=== PATIENT | female | born 1985 | race Caucasian/White ===

== ENCOUNTER 2022-03-08 12:09 | Outpatient (CLI) | payer BC, OTHER, SELFPAY ==
--- OUTSIDE RECORDS SUMMARY | 2022-03-08 12:42 | XMS_ITS | Encounter Summary ---
:1985 Author Organization [facility] Address [address] [place] [address] Care Team Providers Name Role Phone Unavailable Primary Care Provider Unavailable Encounter Details Date Type Department Care Team Description 12/31/2016 Orders Only [facility] Erin Briceño MD [facility] [address] test (Primary Dx) [place], [place] [address] [address] [address] [place] [address] Social History Tobacco Use Types Packs/Day Years Used Date Never Assessed Sex Assigned at Date Recorded Female 08/03/2021 2:35 PM BACK [employer]ENDER [employer] documented as of this encounter Plan of Treatment Not on filedocumented as of this encounter Visit Diagnoses Diagnosis Positive test - Primary examination or test, positive result documented in this encounter
--- OUTSIDE RECORDS SUMMARY | 2022-03-08 12:42 | XMS_ITS | Clinical Summary ---
:1985 Author Organization [facility] Address [address] [place] [address] Care Team Providers Name Role Phone Leela Ruano MD Primary Care Provider Allergies Active Allergy Reactions Severity Noted Date Comments Penicillins Swelling 08/16/2017 Medications Medication Sig Dispensed Refills Start Date End Date Status Vit-Fe Take 1 tablet by 0 Active Fumarate-FA mouth daily ( MULTIVITAMIN PLUS IRON) 27-0.8 MG TABS per tablet calcium carbonate Take 1 chew tab by 0 Active (TUMS) 500 MG mouth daily chewable tablet acetaminophen Take 2 tablets (650 100 tablet 0 08/20/2017 Active (TYLENOL) 325 MG mg) by mouth every tabletIndications: 6 hours as needed delivery for other delivered (multimodal surgical pain management along with NSAIDS and opioid medication as indicated based on pain control and physical function.) ibuprofen Take 1 tablet (600 120 tablet 0 08/20/2017 Active (ADVIL/MOTRIN) 600 mg) by mouth every MG 6 hours as needed tabletIndications: (carmping) delivery delivered oxyCODONE IR Take 1 tablet (5 10 tablet 0 08/20/2017 Active (ROXICODONE) 5 MG mg) by mouth every tabletIndications: 4 hours as needed delivery (pain control or delivered improvement in physical function. Hold dose for analgesic side effects.) senna-docusate Take 1 tablet by 100 tablet 0 08/20/2017 Active (SENOKOT-S;PERICOLAC mouth 2 times daily E) 8.6-50 MG per as needed for tabletIndications: constipation delivery delivered Active Problems Problem Noted Date delivery delivered 08/17/2017 Indication for care in labor or delivery 08/16/2017 Social History Tobacco Use Types Packs/Day Years Used Date Former Smoker Smokeless Tobacco: Never Used Alcohol Use Standard Drinks/Week Comments No 0 (1 standard drink = 0.6 oz pure alcoho l) Sex Assigned at Date Recorded Female 08/03/2021 2:35 PM Last Filed Vital Signs Vital Sign Reading Time Taken Comments Blood Pressure 137/90 08/20/2017 8:34 AM Pulse - - Temperature 36.5 ??C (97.7 ??F) 08/20/2017 8:34 AM Respiratory Rate 18 08/20/2017 8:34 AM Oxygen Saturation 96% 08/17/2017 8:20 AM Inhaled Oxygen Concentration - - Weight 83.5 kg (184 lb) 08/16/2017 11:00 AM Height 162.6 cm (5' 4) 08/16/2017 11:00 AM Body Mass Index 31.58 08/16/2017 11:00 AM Plan of Treatment Health Maintenance Due Date Last Done Comments ADVANCE CARE PLANNING 1985 ANNUAL REVIEW OF HM ORDERS 1985 HEPATITIS B IMMUNIZATION (2 03/27/2000 02/28/2000 of 3 - 3-dose primary series) HEPATITIS C SCREENING 2003 PAP 2006 PREVENTIVE CARE VISIT 10/02/2019 10/01/2018 COVID-19 Vaccine (3 - Booster 05/29/2021 12/27/2020, for Pfizer series) 12/06/2020 PHQ-2 (once per calendar 07/29/2021 year) INFLUENZA VACCINE (#1) 2022 05/29/2017, 08/23/2009 DTAP/TDAP/TD IMMUNIZATION (2 05/29/2027 05/29/2017 - Td or Tdap) HIV SCREENING Completed 01/25/2017 IPV IMMUNIZATION Aged Out No longer eligi ble based on patient's age to complete this to pic MENINGITIS IMMUNIZATION Aged Out No longe r eligible based on patient's age to complete this to pic Pneumococcal Vaccine: Aged Out No longer eligible based Pediatrics (0 to 5 Years) and on patient's age to At-Risk Patients (6 to 64 comple te this topic Years) Care Teams Quality Assurance Supervisor Relationship Specialty Start Date End Date Leela Ruano MD PCP - General Family Practice 08/06/17 [facility] [address] [place], [place] [address]
--- OUTSIDE RECORDS SUMMARY | 2022-03-08 12:42 | XMS_ITS | Encounter Summary ---
:1985 Author Organization [facility] [employer] Address [address] [place] [address] Care Team Providers Name Role Phone Leela Ruano MD Primary Care Provider Reason for Visit Reason Comments LAB RESULTS Encounter Details Date Type Department Care Team Description 12/19/2021 Telephone [facility] [address] Emma Branham MD LAB RESULTS Endocrinology [address] [place] [address] [place], [place] [id number] [phone] Social History Tobacco Use Types Packs/Day Years Used Date Smoking Tobacco: Former Cigarettes 0.5 16 Quit : 12/12/2016 Comments: Smoking History Packs/day: Alcohol Use Standard Drinks/Week Comments Yes 0 (1 standard drink = 0.6 oz pure Alcoho lic Drinks/day: Amount:1-2 alcohol) drinks; Freq:2-3/wee k ; Alcohol Habits Answer Date Recorded How often do you have a drink Not asked containing alcohol? How many drinks containing alcohol Not asked do you have on a typical day when you are drinking? How often do you have six or more Not asked drinks on one occasion? Comment: Alcoholic Drinks/day: Amount:1-2 03/17/ 016 drinks; Freq:2-3/week ; Sex Assigned at Date Recorded Not on file documented as of this encounter Nursing Notes Craon Carty, RN - 12/19/2021 10:21 AM CDT Called out to patient, patient reached, Spoke with patient and relayed information below. Pt verbalized understanding. No further questions. Emma Branham MD - 12/19/2021 9:56 AM CDT Please let the patient know I reviewed her latest thyroid lab and it is normal at 0.33 which is normal. At this point, we can assume the TSH was a little low early in the due to hormones, but now it's back to normal, so we can stop monitoring the thyroid lab during . Emma Branham MD [employer] [facility] documented in this encounter Plan of Treatment Not on filedocumented as of this encounter Visit Diagnoses Not on filedocumented in this encounter Care Teams Senior Integration Architect Relationship Specialty Start Date End Date Leela Ruano MD PCP - General 10/31/10 [id number] [address] [place] [id number] documented as of this encounter
--- OUTSIDE RECORDS SUMMARY | 2022-03-08 12:42 | XMS_ITS | Encounter Summary ---
:1985 Author Organization [facility] Address [address] [place] [address] Care Team Providers Name Role Phone Leela Ruano MD Primary Care Provider Reason for Visit Reason Comments Induction Of Labor Auth/Cert Specialty Diagnoses / Procedures Referred By Contact Refer red To Contact clay hoister Diagnoses Rh Labor And Delivery Procedures LABOR AND DELIVERY [address] [place], [place] [address] Phone: Fax: Referral ID Status Reason Start Date Expiration Date Visits Requ ested Visits Authorized [id number] 1 1 Encounter Details Date Type Department Care Team Description 08/17/2017 Surgery [facility] Elayne Zacarias section Birthplace MD [facility] [address] OBSTETRICS & [place] [address] SPECIALISTS [phone] [id number] [facility] [address] [place], [place] [address] (Wo rk) Surgery Details Date/Time Status Location OR Service Patient Class Case Case Trauma Class Type Case? 08/17/17 12:30 Posted RH L+D LD 01 Obstetrics Inpatient AM Panel 1 Procedure LRB Anes Op Region Wound Class Commen ts section N/A Epidural Abdomen II-Clean Contaminat ed section Surgeon Surgeon Role Service Panel Lia Zacarias MD Primary Obstetrics 1 documented in this encounter Social History Tobacco Use Types Packs/Day Years Used Date Former Smoker Smokeless Tobacco: Never Used Alcohol Use Standard Drinks/Week Comments No 0 (1 standard drink = 0.6 oz pure alcoho l) Sex Assigned at Date Recorded Female 08/03/2021 2:35 PM [employer] documented as of this encounter Last Filed Vital Signs Vital Sign Reading Time Taken Comments Blood Pressure 120/80 08/17/2017 2:20 AM [employer] Pulse - - Temperature 37.2 ??C (99 ??F) 08/17/2017 1:34 AM [employer] Respiratory Rate 18 08/16/2017 11:45 PM [employer] Oxygen Saturation 94% 08/17/2017 2:30 AM [employer] Inhaled Oxygen Concentration - - Weight 83.5 kg (184 lb) 08/16/2017 11:00 AM [employer] Height 162.6 cm (5' 4) 08/16/2017 11:00 AM [employer] Body Mass Index 31.58 08/16/2017 11:00 AM [employer] documented in this encounter Discharge Summaries Lia Zacarias MD - 08/16/2017 10:52 AM CST Post-Operative Note and Discharge Summary Leodan Milligan Date of : 1985 Age: [age] year old Date of Admission: 08/16/2017 Date of Discharge: 08/20/2017 1:00 PM Admitting Physician: Lia Zacarias MD Discharge Physician: Lia Zacarias MD Discharging Service: Obstetrics and Gynecology Home clinic: [facility] Admission Diagnoses: Indication for care in labor or delivery section delivery delivered Discharge Diagnosis: Patient Active Problem List Diagnosis ??? Indication for care in labor or delivery ??? delivery delivered Discharge Disposition: Discharged to home Condition on Discharge: Discharge vitals: Blood pressure 137/90, temperature 97.7 ??F (36.5 ??C), temperature source Oral, resp. rate 18, height 1.626 m (5' 4), weight 83.5 kg (184 lb), SpO2 96 %, unknown if currently . Procedures / Labs / Imaging: Invasive procedures: Primary section Medications Prior to Admission: No prescriptions prior to admission. Discharge Medications: Discharge Medication List as of 08/20/2017 10:38 AM START taking these medications Details acetaminophen (TYLENOL) 325 MG tablet Take 2 tablets (650 mg) by mouth every 6 hours as needed for other (multimodal surgical pain management along with NSAIDS and opioid medication as indicated based on pain control and physical function.), Disp-100 tablet, R-0, Local Print ibuprofen (ADVIL/MOTRIN) 600 MG tablet Take 1 tablet (600 mg) by mouth every 6 hours as needed (carmping), Disp-120 tablet, R-0, E-Prescribe oxyCODONE IR (ROXICODONE) 5 MG tablet Take 1 tablet (5 mg) by mouth every 4 hours as needed (pain control or improvement in physical function. Hold dose for analgesic side effects.), Disp-10 tablet, R-0, Local Print senna-docusate (SENOKOT-S;PERICOLACE) 8.6-50 MG per tablet Take 1 tablet by mouth 2 times daily as needed for constipation, Disp-100 tablet, R-0, E-Prescribe CONTINUE these medications which have NOT CHANGED Details Vit-Fe Fumarate-FA ( MULTIVITAMIN PLUS IRON) 27-0.8 MG TABS per tablet Take 1 tablet by mouth daily, Historical calcium carbonate (TUMS) 500 MG chewable tablet Take 1 chew tab by mouth daily, Historical STOP taking these medications RaNITidine HCl (ZANTAC PO) Comments: Reason for Stopping: Brief History of Illness: Leodan Milligan is a 32 year old female who was admitted for induction of labor given suspected macrosomia and GDMA1. Hospital Course: Her labor progressed normally to complete dilation, at which point no further descent of the head was noted after >1 hour of pushing. Given the EFW 9# and high station, the decision was made to proceed with primary section. Patient underwent delivery on 08/17/17 withoutcomplication. Her postoperative course was uncomplicated, with the ability to ambulate, void and tolerate regular diet by postoperative day #1. She was able to pass flatus and had pain controlled with oral medications by postoperative day #2. She was discharged on postoperative day #3 meeting all milestones. Significant Results: Recent Labs Lab 08/18/17 0705 08/16/17 1145 WBC -- 8.7 HGB 10.5* 13.7 HCT -- 43.3 MCV -- 85 PLT -- 272 Discharge Instructions and Follow-Up: Discharge diet: Regular Discharge activity: No intercourse or vigorous exercise for 6 weeks Discharge follow-up: Follow up with primary OB provider in 6 weeks Lia Zacarias MD [employer] documented in this encounter Discharge Instructions Discharge InstructionsSoco HutchisonALVARO - 08/20/2017 10:38 AM CST Postop Instructions [phone] [facility]-[phone] Activity ?? Do not lift more than 10 pounds for 6 weeks after surgery. Ask family and friends for help when you need it. ?? No driving until you have stopped taking your pain medications (usually two weeks after surgery). ?? No heavy exercise or activity for 6 weeks. Don't do anything that will put a strain on your surgery site. ?? Don't strain when using the toilet. Your care team may prescribe a stool softener if you have problems with your bowel movements. To care for your incision: ?? Keep the incision clean and dry. ?? Do not soak your incision in water. No swimming or hot tubs until it has fully healed. You may soak in the bathtub if the water level is below your incision. ?? Do not use peroxide, gel, cream, lotion, or ointment on your incision. ?? Adjust your clothes to avoid pressure on your surgery site (check the elastic in your underwear for example). You may see a small amount of clear or pink drainage and this is normal. Check with your health care provider: ?? If the drainage increases or has an odor. ?? If the incision reddens, you have swelling, or develop a rash. ?? If you have increased pain and the medicine we prescribed doesn't help. ?? If you have a fever above 100.4 F (38 C) with or without chills when placing thermometer under your tongue. The area around your incision (surgery wound), will feel numb. This is normal. The numbness should go away in less than a year. Keep your hands clean: Always wash your hands before touching your incision (surgery wound). This helps reduce your risk ofinfection. If your hands aren't dirty, you may use an alcohol hand-rub to clean your hands. Keep your nails clean and short. Call your healthcare provider if you have any of these symptoms: ?? You soak a sanitary pad with blood within 1 hour, or you see blood clots larger than a golf ball. ?? Bleeding that lasts more than 6 weeks. ?? Vaginal discharge that smells bad. ?? Severe pain, cramping or tenderness in your lower belly area. ?? A need to urinate more frequently (use the toilet more often), more urgently (use the toilet veryquickly), or it wade when you urinate. ?? Nausea and vomiting. ?? Redness, swelling or pain around a vein in your leg. ?? Problems or a red or painful area on your breast. ?? Chest pain and cough or are gasping for air. ?? Problems with coping with sadness, anxiety or depression. If you have concerns about hurting yourself or the baby, call your provider immediately. ?? You have questions or concerns after you return home. [employer] MEMBER documented in this encounter Medications at Time of Discharge Medication Sig Dispensed Refills Start Date End Date acetaminophen (TYLENOL) Take 2 tablets (650 100 tablet 0 325 MG mg) by mouth every 6 tabletIndications: hours as needed for delivery other (multimodal delivered surgical pain management along with NSAIDS and opioid medication as indicated based on pain control and physical function.) calcium carbonate (TUMS) Take 1 chew tab by 0 500 MG chewable tablet mouth daily ibuprofen (ADVIL/MOTRIN) Take 1 tablet (600 mg) 120 tablet 0 08/20/2017 600 MG by mouth every 6 hours tabletIndications: as needed (carmping) delivery delivered oxyCODONE IR Take 1 tablet (5 mg) 10 tablet 0 08/20/2017 (ROXICODONE) 5 MG by mouth every 4 hours tabletIndications: as needed (pain delivery control or improvement delivered in physical function. Hold dose for analgesic side effects.) Vit-Fe Take 1 tablet by mouth 0 Fumarate-FA ( daily MULTIVITAMIN PLUS IRON) 27-0.8 MG TABS per tablet senna-docusate Take 1 tablet by mouth 100 tablet 0 8 (SENOKOT-S;PERICOLACE) 2 times daily as 8.6-50 MG per needed for tabletIndications: constipation delivery delivered documented as of this encounter Progress Notes Deonna Starr MD - 08/20/2017 7:25 AM CST Doing well vss afeb Abdomen soft and nt Incision dry and intact Fundus firm and nt Extremities nl with +1 edema POD 3 doing well Discharge home prec reviewed RTC 6 weeks [employer] Marcie Sun PA-C - 08/19/2017 8:48 AM CST # 2 Post op . 40 2/7 weeks. Gest Diabetic. LGA. Pt states doing well. Nursing. Pain well controlled. Afebrile VSS. Hgb 10.5. Fundus firm light flow. Incision dry and intact. Passing flatus. Voiding w/o problems. Ext: w trace edema no pain. Normal postop course. Plan routine postop care. Plan to discharge to home 08/20. A [employer]BER Associated attestation - Asuncion Barnes MD - 08/19/2017 11:09 AM [employer] Physician Attestation I agree with the information in this note. Memo Alex MD - 08/18/2017 8:47 AM CST Afebrile. Abdomen is soft nontender. Dressing removed, incision is clean and dry. Tolerating diet, good pain control. Afebrile for 24 hours. Imp normal post op course. Plan Discontinue IV antibiotics. A [employer] TE[employer] MEMBER Memo Rosado MD - 08/17/2017 8:26 AM CST Mild elevation of temperature to 101.2 after her surgery, now on clindamycin and gent. No complaintsre incision. Tolerating diet, good pain control. Imp Post op c section Plan Continue antibiotics for at least 24 hours, otherwise routine post operative care. A [employer] TE[employer] MEMBER Lia Zacarias MD - 08/17/2017 12:18 AM CST Arrived to evaluate patient given pushing >1 hour and recurrence of deep variable decelerations with pushing. Pitocin had been turned off, with contractions every 1-2 minutes. On arrival, FHT baseline 165 with moderate variability, and deep variables with every few pushes. Pushing initiated with patient and station noted to be 0 with no descent despite very strong maternal effort. FHT baseline elevated to 175-180 during pushing, with maternal temp 99.3. Early decelerations noted, no accelerations. EFW 8.5-9#, with diagnosis of GDM. Suspect CPD and the elevating risk of intraamniotic infection. Patient counseled regarding recommendation for primary section. Consent signed. Lia Zacarias MD [employer]BER Marnie Villar MD - 08/16/2017 12:33 PM CST Labor Progress Note: S: Pt is here for induction of labor. O: BP 132/86 Temp 98.9 ??F (37.2 ??C) (Axillary) Resp (P) 17 Ht 1.626 m (5' 4) Wt 83.5 kg (184lb) BMI 31.58 kg/m2 SVE: 3.5/80/-2 AROM with clear fluid. TOCO: Irritability FHR: 145 baseline +moderate baseline cat 1 A/P: 32 yo at 40+1/7 wks. 1. GDM. Continue to monitor in labor. 2. Elevated BP monior, labs pending. 3. GBS negative. Marnie Villar A [employer] TE[employer] MEMBER documented in this encounter H&P Notes Lia Zacarias MD - 08/17/2017 12:26 AM CST History and Physical Leodan Milligan Date of : 1985 Age: [age] year old Date of Admission: 08/16/2017 Primary care provider: Leela Ruano Assessment and Plan: 32yo at 40.2 with GDMA1 and arrest of descent, suspected CPD. --Proceed with primary section. --Ancef and azithromycin for perioperative prophylaxis Attestation: This patient has been seen and evaluated by me, Lia Zacarias MD. Chief Complaint: Labor History is obtained from the patient History of Present Illness: This patient is a 32 year old female who presented for induction of labor at 40.2 weeks gestation given GDMA1 and suspected large size, borderline BPs. Labor progressed very well until she reached complete dilation, when no further progress was made past 0 station despite good maternal effort. Past Medical History: Past Medical History: Diagnosis Date ??? Diabetes (H) gestational diabetes-diet controlled Past Surgical History: History reviewed. No pertinent surgical history. Social History: I have reviewed this patient's social history Family History: This patient has no significant family history Immunizations: Immunizations are up to date Allergies: Allergies Allergen Reactions ??? Penicillins Swelling Medications: Prescriptions Prior to Admission Medication Sig Dispense Refill Last Dose ??? Vit-Fe Fumarate-FA ( MULTIVITAMIN PLUS IRON) 27-0.8 MG TABS per tablet Take 1 tablet by mouth daily 08/15/2017 at Unknown time ??? RaNITidine HCl (ZANTAC PO) Take 150 mg by mouth 08/15/2017 at Unknown time ??? calcium carbonate (TUMS) 500 MG chewable tablet Take 1 chew tab by mouth daily Past Week at Unknown time Review of Systems: The 10 point Review of Systems is negative other than noted in the HPI Physical Exam: Vitals were reviewed Temp: (P) 99.3 ??F (37.4 ??C) Temp src: (P) Axillary BP: 130/74 Heart Rate: 18 Resp: 18 Gen--NAD CV--RRR Lungs--CTA Abd--Gravid, EFW 9# FHT--175, moderate LTV, no accels, no decels [place]---ctx every 1-3 min Data: All laboratory data reviewed Lia Zacarias MD A [employer] TE[employer] MEMBER Marnie Villar MD - 08/16/2017 12:33 PM CST No significant change in general health status based on examination of the patient, review of Nursing Admission Database and record. EFW: 8lb 8oz Marnie Villar [employer] TE[employer] MEMBER documented in this encounter Consult Notes Luther Dale LSW - 08/19/2017 11:52 AM CST D) SW responding to automatic referral, met with Leodan and Jovi who are and reside in [place]. Their baby Charleen is their first and is in the NICU for respiratory distress. They are prepared for her at home and are not on WIC. Leodan has 6 weeks off work and Jovi has one week off. Leodan's mother who lives in [place] will live with the couple for awhile to help out. Leodan has not completed her EPDS at this time and has no concerns for herself for baby blues/ depression. I)SW explained role and provided supportive listening. SW discussed baby blues/ depressionand gave information on this as well as Parent Resource Guide and NICU welcome card with SW contact information. A)Leodan is A&O, with good affect and eye contact. Jovi is at bedside and supportive. Both speak very attentively of their new daughter. SW did not observe parent/infant bonding at this time due to baby being in NICU. Extended family live nearby and are very supportive. P) SW will continue to follow family while Charleen is in the NICU. A [employer] TE[employer] MEMBER documented in this encounter Miscellaneous Notes Note - Jemma Samson, RN - 08/20/2017 1:16 PM CST CL[place] to see patient. Her baby was using SNS and a nipple shield in NICU. Today she was planning on transitioning to formula via SNS when donor milk is no longer available at home. LC encouraged patient to pump so we could create a feeding plan. She pumped 30 cc from primarily one side (the second side was not suctioning) and formula will no longer be indicated. Plan for home to continue use of the nipple shield and work on latching. May use SNS only if required and not full 30 cc volume. will provide a follow up phone call within a week. A [employer] TE[employer] MEMBER Plan of Care - Mary Jane Welsh RN - 08/20/2017 1:00 PM CST Problem: Patient Care Overview Goal: Plan of Care/Patient Progress Review Outcome: Adequate for Discharge Date Met: 08/20/17 Data: Vital signs within normal limits. checks within normal limits - see flow record. Patient eating and drinking normally. Patient able to empty bladder independently and is up ambulating.No apparent signs of infection. Incision healing well. Patient performing self cares and is able to care for . Action: Patient medicated during the shift for pain and cramping. See MAR. Patient reassessed within1 hour after each medication and pain was improved - patient stated she was comfortable. Patient education done about discharge instructions, take home medications, post depression, and follow up appointments Patient verbalized understanding of all discharge instructions and states she has no further questions/concerns at this time. Response: Positive attachment behaviors observed with . Support persons present. Plan: Anticipate discharge home with infant. A [employer] TE[employer] MEMBER Plan of Care - Bhavesh Moya RN - 08/20/2017 4:10 AM CST Problem: Patient Care Overview Goal: Plan of Care/Patient Progress Review Outcome: Improving Stable patient, up ad suzanne and is independent with cares. with SNS going well, pt is also pumping. Vitals and assessment are WNL, pain well managed and incision is intact and healing as expected. Spouse is present and supportive, bonding well with . [employer] TE[employer] MEMBER Plan of Care - Yane Holden RN - 08/19/2017 11:39 PM CST Problem: ( Delivery) (Adult,Obstetrics,Pediatric) Goal: Signs and Symptoms of Listed Potential Problems Will be Absent, Minimized or Managed () Signs and symptoms of listed potential problems will be absent, minimized or managed by discharge/transition of care (reference ( Delivery) (Adult,Obstetrics,Pediatric) CPG). Outcome: Improving Pt stable, vitals WNL. well with SNS, ind. Pain managed well with ibuprofen and tylenol. Pt ambulating and voiding ind. Significant other at bedside and very attentive to pt and . A H[employer] TEAM MEMBER Note - Soco Santoro RN - 08/19/2017 1:45 PM CST This note was copied from a baby's chart. As LC assisted with breast feeding. Leodan latched Charleen easily. With SNS within the nipple shield, Charleen easily took 30 mL before falling asleep. 1 desat to 90% near beginning of feeding with Charleen appropriately pausing to recover. Will continue to follow and support. Recommend continuing SNS at breast until Leodan's milk is in. Assessed pumping issues and breast shield size was too big. We also discussed setting on pump. Will continue to follow and support. A [employer] TE[employer] MEMBER Plan of Care - Mary Jane Welsh RN - 08/19/2017 12:59 PM CST Problem: Patient Care Overview Goal: Plan of Care/Patient Progress Review Patient meeting expected goals this shift. Pain controlled with use of oral pain medications. Incision open to air, well-approximated. Up ad suzanne, ambulating to NICU to be with baby. A H[employer] TEAM MEMBER Note - Soco Santoro RN - 08/19/2017 11:58 AM CST This note was copied from a baby's chart. As LC assisting with 1000 breast feeding. Charleen is sleepy after being awake while in bed. Allowed to be at breast and STS with some oral stimulation before she latched with 24mm nipple shield. Leodanhas only gtts of colostrum so utilized SNS to keep Charleen at breast. Strong suck easily transferred 27mL via SNS. Changed positioning to football hold and that seemed to be easier for Leodan. Recommend STS PRIOR to feeding and continue use of 24mm nipple shield. Will continue to follow and support. A [employer] TE[employer] MEMBER Plan of Care - Parris Medrano RN - 08/19/2017 5:37 AM CST Problem: Patient Care Overview Goal: Plan of Care/Patient Progress Review Outcome: Improving VSS, is in the NICU. Pain is well controlled with abdominal binder, tylenol, and ibuprofen. Patient is voiding without difficulty and ambulating independently. Tolerating regular diet well. Independent in self cares. Educated mom on importance of pumping to increase milk supply. Mom pumped X1 this shift and sent EBM to NICU. Meeting expected goals. A [employer] TE[employer] MEMBER Plan of Care - Dania Vargas RN - 08/18/2017 9:43 PM CST Problem: Patient Care Overview Goal: Plan of Care/Patient Progress Review Outcome: Improving Pt is AVSS. Ambulating. Independent. Voiding, passing gas, no BM yet. Incision is open to air, CDI, no drainage, no swelling or redness. Pain is controlled with Ibu and Tylenol. Using abd binder. Making frequent visits to NICU to see her baby. Pumping and . Continue to monitor per pt care plan. A [employer] TE[employer] MEMBER Plan of Care - Lucia Pratt RN - 08/18/2017 1:27 PM CST Problem: Patient Care Overview Goal: Plan of Care/Patient Progress Review Outcome: Improving VSS. Antibiotics discontinued this morning per Dr. Rosado, IV removed. Pain well controlled with oral tylenol and ibuprofen. Pt in NICU frequently this shift with . Using breastpump. Will continue to monitor. A [employer] TE[employer] MEMBER Plan of Care - Parris Medrano RN - 08/18/2017 5:58 AM CST Problem: Patient Care Overview Goal: Plan of Care/Patient Progress Review Outcome: Improving VSS, Infant is in the NICU. Pain is well controlled with abdominal binder, tylenol, and Toradol. Patient is voiding without difficulty and ambulating independently. Tolerating regular diet well. Independent in self and baby cares. Mom plans to pump and bring EBM to the NICU for infant. Did not pump this shift. Education provided on how to use hand expression or pumping to increase milk supply. Meeting expected goals. A [employer] TE[employer] MEMBER Plan of Care - Dania Vargas RN - 08/17/2017 10:13 PM CST Problem: Patient Care Overview Goal: Plan of Care/Patient Progress Review Outcome: Improving Pt is AVSS. Ambulating better, more independent. Tolerating regular diet. Voiding. IV is SL. Incision dressing is dry, old drainage is marked unchanged. Edematous +2. PCDs are on. Pt is pumping not getting much, the milk was taken to NICU. Pt was taken on wheelchair by a nurse to NICU to see baby. Pt spent some time in NICU, was brought back by a nurse. Pain is controlled with scheduled Toradol and tylenol. Pt denies any symptoms of N/V. Education was provided. Contnue to monitor per care plan. A [employer] TE[employer] MEMBER Plan of Care - Amanda Landin RN - 08/17/2017 2:51 PM CST Pt POD #0. Pandya d/c at 1145--pt attempted to void at 1400 but has not yet voided. Up ambulating in room with stand by assist. Receiving IV antibiotics and fluids. Discomfort minimal--controlled with scheduled medications thus far. Pt tolerated clears--advanced to fulls which she tolerated so pt was advanced to regular diet. States she is passing flatus. Down to NICU for a few hours to see infant. Ptis utilizing a breast pump and getting good amounts of colostrum. VSS--pt has been afebrile this shift. Support persons present. A [employer] TE[employer] MEMBER Provider Notification - Amanda Landin RN - 08/17/2017 8:20 AM CST 08/17/17 0820 Provider Notification Provider Name/Title Dr. Rosado Method of Notification At Bedside Dr. Rosado at bedside. Plan to take pandya out at lunch time and get pt up and moving. MD updated that pt is on IV Clindamycin and IV Gentamycin--temps improving. MD assessed pt--POC reviewed. All questions answered. A [employer] TE[employer] MEMBER Provider Notification - Yanira Pena RN - 08/17/2017 5:20 AM [employer] 08/17/17 0520 Provider Notification Provider Name/Title Dr. Zacarias Method of Notification Phone Request Evaluate-Remote Notification Reason Vital Signs Change;Status Update MD notified of elevated BPs, and elevated temps of 101.2 ax with a BP of 151/89, a half hour later aBP was checked with a BP of 140/88 and a temp of 100.9ax. Orders received to start IV Clindamycin every 8 hours 900mg, and Pharmacy to dose IV Gentamycin for 24 hours, then will re-evaluate. A [employer] TE[employer] MEMBER Plan of Care - Yanira Pena RN - 08/17/2017 3:30 AM CST Data: Leodan Milligan transferred to 429 via cart at 0330 . Baby transferred via isolette/transporter to NICU after delivery. Action: Receiving unit notified of transfer: Yes. Patient and family notified of room change. This nurse continued cares of patient in for cares til 0700. Belongings sent to receiving unit. Accompanied by Registered Nurse. Oriented patient to surroundings. Call light within reach. Will givereport to dayshift RN. Response: Patient tolerated transfer and is stable. A H[employer] TEAM MEMBER Plan of Care - Yanira Pena RN - 08/17/2017 3:10 AM CST Went down to NICU with to see baby in NICU. A HUT TEAM MEMBER Op Note - Lia Zacarias MD - 08/17/2017 1:36 AM CST DATE OF PROCEDURE: 08/17/2017 PREOPERATIVE DIAGNOSES: 1. A 32-year-old G1,P0 at 40 and 2 weeks gestation with gestational diabetes type A1. 2. Suspected large size and cephalopelvic disproportion. 3. Arrest of descent. POSTOPERATIVE DIAGNOSES: 1. A 32-year-old at 40 and 2 weeks gestation with gestational diabetes type A1. 2. Confirmed LGA with a deep arrest in pelvis. PROCEDURE: Primary low transverse section. SURGEON: Lia Zacarias MD ANESTHESIA: Epidural. INDICATIONS: A 32-year-old G1,P0 who was admitted for induction of labor at 40 and 2 weeks gestationgiven gestational diabetes type A1 as well as elevating blood pressures and suspected large size. She had a favorable cervix at the time of admission and was placed on Pitocin with artificial rupture of membranes performed at approximately 3-1/2 cm. She progressed rapidly with minimal augmentation with Pitocin to complete dilation at 2200 on 08/16. At that point, station was at 0 and she was complete for 1 hour prior to pushing, but no further descent had been made despite contractions every minute. The patient initiated pushing and had been pushing for more than hour with no descent of the head. The heart tracing was overall reassuring, with moderate variability, but the heart rate baseline had increased from 140s to 160s at the time of pushing. Heiss maternal temperature was 99.4. I evaluated the patient after 1 hour of pushing and found that the station was still very high, with no descent past 0 with good maternal effort. Suspected size was approximately 9 pounds and cephalopelvic disproportion due to possible large shoulders was suspected. The patient was counseled regarding my recommendation for primary section. Consent was obtained. DESCRIPTION OF PROCEDURE: The patient was taken to the operating room where her epidural anesthesia had been dosed and found to be adequate. She was prepped and draped in the normal sterile fashion in the dorsal supine position with leftward tilt. She was given 2 grams of Ancef and 500 mg of azithromycin IV prior to the procedure. A Pfannenstiel skin incision was made with a scalpel and carried through to the underlying layer of fascia, the fascia was then scored in the midline and the fascial incision was extended laterally with Williamson scissors. The superior aspect of the fascial incision was grasped with Khoa clamps, elevated, and the rectus muscles were dissected off sharply. The same was undert aken on the inferior aspect of the incision. The rectus muscles were then identified and bluntly. The peritoneal cavity was also identified and entered bluntly. This incision was extended. A bladder blade was placed and given the prolonged labor and deep pelvic descent, the bladder was quite prominent lower uterine segment. The hysterotomy was performed with a scalpel after a bladder flap had been created. The hysterotomy was extended digitally. At this point, the position of the head was assessed as well as placement of the majority of the body on the maternal left side. Attempt was made to place my hand around the head, which was very difficult given the deep descent and large size, as well as minimal movement. Multiple attempts were made, with a total time to delivery of the head, a 45 seconds followed by a quick delivery of the remainder of the . Cord was clamped and cut and the infant was handed off immediately to the NICU team. Good tone was noted. Cord blood was sent for gases given a difficult delivery. At this point, the uterus was found to be mildly atonic, but recovered quickly with Pitocin and a dose of IM Methergine. The hysterotomy was repaired with 0 Vicryl in a running locked fashion followed by 2 layers of imbrication given stretch of the uterine tissue. At this point, very good hemostasis was noted, as well as good uterine tone. The uterus was then returned to the abdomen. The abdomen was irrigated and dried, and there was continued hemostasis along the hysterotomy, and good uterine tone was maintained. The fascia was then closed with 0 Vicryl in a running fashion. The subcutaneous tissue was irrigated and dried the subcutaneous tissue was closed with 3-0 Vicryl in a running fashion. The skin was closed with absorbable jolynn. Sponge, lap and needle counts were correct x2 and there were no complications. FINDINGS: Liveborn female, weight of 9 pounds 6 ounces. Apgars pending with NICU. Infant was admitted to the NICU given mild respiratory distress after delivery. Normal uterus, tubes and ovaries. ESTIMATED BLOOD LOSS: 600 mL. LIA ZACARIAS MD MT: LO Name: LEODAN MILLIGAN Account: [id number] : 1985 Procedure Date: 08/17/2017 Document: [id number] A [employer]BER Brief Op Note - Lia Zacarias MD - 08/17/2017 1:29 AM [facility] [facility] Brief Operative Note Pre-operative diagnosis: 32yo at 40.2 with GDMA1 for induction of labor Arrest of descent with suspected CPD Post-operative diagnosis Same Confirmed LGA Procedure: Procedure(s): section - Wound Class: II-Clean Contaminated Surgeon(s): Surgeon(s) and Role: * Lia Zacarias MD - Primary Estimated blood loss: 600cc Specimens: Cord gases Findings: Liveborn female, weight 9#6oz, Apgars pending with NICU. Infant admitted to NICU for mild respiratory distress. Lia Zacarias MD A [employer] TE[employer] MEMBER Provider Notification - Yanira Pena RN - 08/17/2017 12:15 AM [employer] 08/17/17 0015 Provider Notification Provider Name/Title Dr. Zacarias Method of Notification At Bedside MD talking with patient regarding possible need for C/S, possible risks and benefits. Will have consent ready to sign for patient in agreement. A [employer] TE[employer] MEMBER Provider Notification - Yanira Pena RN - 08/17/2017 12:00 AM [employer] 08/17/17 0000 Provider Notification Provider Name/Title Dr. Zacarias Method of Notification At Bedside MD at bedside to evaluate pushing, FHTs. A [employer] TE[employer] MEMBER Provider Notification - Yanira Pena RN - 08/16/2017 11:45 PM [employer] 08/16/17 2345 Provider Notification Provider Name/Title Dr. Zacarias Method of Notification Phone MD called in to evaluate FHT rate, pushing. A [employer] TE[employer] MEMBER Provider Notification - Yanira Pena RN - 08/16/2017 10:20 PM [employer] 08/16/17 2220 Provider Notification Provider Name/Title Dr. Zacarias Method of Notification Phone Request Evaluate - Remote Notification Reason Labor Status;Uterine Activity;Status Update;SVE updated that SVE as of 2149 is 10/100/0, patient is not feeling any pressure. She feels contractions at the top of her fundus only because she feels heartburn with them. Updated MD that patient was able to take and keep down the oral Prilosec. Updated MD on contraction pattern, Oral temp of 99.2, and FHT's moderate variability with accels and no decels, but baseline is elevated from 135 to 150 nowsince temp. Received orders to start pushing around 2300, MD is at home and to call when needed for delivery. A [employer] TE[employer] MEMBER Provider Notification - Katey Godwin RN - 08/16/2017 7:34 PM [employer] 08/16/17 1932 Provider Notification Provider Name/Title Dr Zacarias Method of Notification Phone Request Evaluate - Remote Notification Reason SVE;Status Update;Patient Request (heartburn) SVE /-1, pitocin continuing at 1 abimael-unit. Updated of blood sugars--see flowsheets. Pt managingwith clear fluids at this time, MD OK not to start D5LR at this time as long as they stay >70. Ptcomplaining of severe heartburn. PO Bicitra order received. Orders for SVE at 2100 and update MD at that time unless needed sooner. Bedside report given to Monique DUARTE RN whom will assume all cares at that time. A [employer] TE[employer] MEMBER Provider Notification - Katey Godwin RN - 08/16/2017 4:54 PM [employer] 08/16/17 1645 Provider Notification Provider Name/Title Dr Villar Method of Notification Phone Request Evaluate - Remote Notification Reason Status Update;SVE (Pitocin running at 1 abimael-unit) A H[employer] TEAM MEMBER Provider Notification - Katey Godwin RN - 08/16/2017 2:56 PM [employer] 08/16/17 0456 Provider Notification Provider Name/Title Dr Villar Method of Notification Phone Request Evaluate - Remote Notification Reason SVE;Status Update MD updated of SVE no change. Pt now very uncomfortable, rates 6/10. Fentanyl given. IV flushing. OK for epidural at any time. Will continue to monitor and update as needed. A [employer] TE[employer] MEMBER Plan of Care - Katey Godwin RN - 08/16/2017 1:06 PM CST Patient off monitors to ambulate hallways. Instructed to notify nurse if patient notices any significant changes in condition. A [employer] TE[employer] MEMBER Provider Notification - Katey Godwin RN - 08/16/2017 12:26 PM [employer] 08/16/17 1215 Provider Notification Provider Name/Title Dr Villar Method of Notification Phone Request Evaluate - Remote Notification Reason Patient Arrived;Status Update MD to come for AROM, intrapartum orders placed A [employer] TE[employer] MEMBER Provider Notification - Yanira ePna RN - 08/16/2017 8:30 AM [employer] 08/16/172032 Provider Notification Provider Name/Title Dr. Zacarias Method of Notification Phone Request Evaluate - Remote Notification Reason Other (Comment) MD called to ask about a medication that she ordered with previous nurse. MD discontinued that Medication, and ordered po Prilosec 20 mg BID , start when patient's nausea after emesis feels better. Call MD with any questions or when needed. A [employer] TE[employer] MEMBER documented in this encounter Plan of Treatment Not on filedocumented as of this encounter Procedures Procedure Name Priority Date/Time Associated Comments Diagnosis HEMOGLOBIN Routine 08/18/2017 7:05 AM Results f or this [employer] procedure are i n the results section. GLUCOSE BY METER Routine 08/17/2017 6:35 AM Resul ts for this [employer] procedure are i n the results section. SECTION 08/17/2017 12:20 section AM [employer]BER GLUCOSE BY METER Routine 08/16/2017 10:35 Results for this PM [employer] procedure are i n the results section. GLUCOSE BY METER Routine 08/16/2017 8:37 PM Resul ts for this [employer] procedure are i n the results section. GLUCOSE BY METER Routine 08/16/2017 6:28 PM Resul ts for this [employer] procedure are i n the results section. PROTEIN RANDOM URINE STAT 08/16/2017 5:30 PM R esults for this [employer]BER procedure are i n the results section. CREATININE URINE Routine 08/16/2017 5:30 PM Resul ts for this CALCULATION ONLY (LAB [facility] proced ure are in ONLY) the results section. GLUCOSE BY METER Routine 08/16/2017 5:14 PM Resul ts for this [employer]BER procedure are i n the results section. CBC WITH PLATELETS & STAT 08/16/2017 11:45 Res ults for this DIFFERENTIAL AM [employer]BER procedure are i n the results section. URIC ACID STAT 08/16/2017 11:45 Results for this AM [employer] procedure are i n the results section. AST STAT 08/16/2017 11:45 Results for this AM [employer] procedure are i n the results section. ANTI TREPONEMA STAT 08/16/2017 11:45 Results f or this AM [employer] procedure are i n the results section. ALT STAT 08/16/2017 11:45 Results for this AM [employer] procedure are i n the results section. ABO/RH TYPE AND STAT 08/16/2017 11:45 Results for this SCREEN AM [employer]BER procedure are i n the results section. BASIC METABOLIC PANEL STAT 08/16/2017 11:45 Re sults for this AM [employer]BER procedure are i n the results section. GROUP B STREP PCR Routine 07/17/2017 Results fo r this procedure are i n the results section. RUBELLA ANTIBODY IGG Routine 01/25/2017 Results for this procedure are i n the results section. HIV ANTIGEN ANTIBODY Routine 01/25/2017 Results for this COMBO procedure are i n the results section. NEISSERIA GONORRHOEAE Routine 01/25/2017 Result s for this PCR procedure are i n the results section. HEPATITIS B SURFACE Routine 01/25/2017 Results for this ANTIGEN procedure are i n the results section. CHLAMYDIA TRACHOMATIS Routine 01/25/2017 Result s for this PCR procedure are i n the results section. ANTI TREPONEMA Routine 01/25/2017 Results for t his procedure are i n the results section. documented in this encounter Results (ABNORMAL) Hemoglobin (08/18/2017 7:05 AM [employer] MEMBER) P athologist Signature Hemoglobin 10.5 (L) 11.7 - 15.7 08/18/2017 [place] g/dL 7:56 AM [facility] Specimen Anatomical Collection Method Collection Time Receive d Time (Source) Location / / Volume Laterality Blood specimen 08/18/2017 7:05 AM 018 7:06 (specimen) [employer]BER [facility] Lia Zacarias MD LAB - BLOOD ORDERABLES Performing Organization Address City/State/ZIP Code Phon e Number M [facility] [address] [address] [facility] [address] [phone] (ABNORMAL) Glucose by meter (08/17/2017 6:35 AM [employer]) P athologist Signature Glucose 114 (H) 70 - 99 08/17/2017 POINT OF CARE mg/dL 6:40 AM [employer] TEST, GLUCOSE Specimen Anatomical Collection Method Collection Time Receive d Time (Source) Location / / Volume Laterality 08/17/2017 6:35 AM 8 6:40 [employer] AM [employer]BER Lia Zacarias MD LAB - BESpacenet POCT Performing Organization Address City/State/ZIP Code Phon e Number [facility] POINT OF CARE TEST, GLUCOSE POINT OF CARE TEST, GLUCOSE Glucose by meter (08/16/2017 10:35 PM [employer]) athologist Signature Glucose 70 70 - 99 08/17/2017 POINT OF CARE mg/dL 1:15 AM [employer] TEST, GLUCOSE Specimen Anatomical Collection Method Collection Time Receive d Time (Source) Location / / Volume Laterality 08/16/2017 10:35 08/17/2017 1:15 PM [employer]BER AM [employer]A [employer] TE[employer] MEMBER Marnie ALBARADO - JAMAAL POCT Performing Organization Address City/State/ZIP Code Phon e Number [facility] POINT OF CARE TEST, GLUCOSE POINT OF CARE TEST, GLUCOSE (ABNORMAL) Glucose by meter (08/16/2017 8:37 PM [employer] TE[employer] MEMBER) athologist Signature Glucose 62 (L) 70 - 99 08/16/2017 POINT OF CARE mg/dL 8:40 PM [employer] TEST, GLUCOSE Specimen Anatomical Collection Method Collection Time Receive d Time (Source) Location / / Volume Laterality 08/16/2017 8:37 PM 8 8:40 [employer] PM [employer]BER Marnie Villar MD LAB - JAMAAL POCT Performing Organization Address City/State/ZIP Code Phon e Number [facility] POINT OF CARE TEST, GLUCOSE POINT OF CARE TEST, GLUCOSE Glucose by meter (08/16/2017 6:28 PM [employer]) athologist Signature Glucose 71 70 - 99 08/16/2017 POINT OF CARE mg/dL 6:30 PM [employer] TEST, GLUCOSE Specimen Anatomical Collection Method Collection Time Receive d Time (Source) Location / / Volume Laterality 08/16/2017 6:28 PM 8 6:30 [employer] PM [employer]BER Marnie Villar MD LAB - BEAKER POCT Performing Organization Address City/[facility]/ZIP Code Phon e Number [facility] POINT OF CARE TEST, GLUCOSE POINT OF CARE TEST, GLUCOSE Creatinine urine calculation only (08/16/2017 5:30 PM PI[employer]A [employer] TE[employer] MEMBER) athologist Signature Creatinine 142 mg/dL 08/16/2017 [place] Urine 6:36 PM [facility] Specimen Anatomical Collection Method Collection Time Receive d Time (Source) Location / / Volume Laterality 08/16/2017 5:30 PM 8 6:10 [employer]BER PM [employer]BER Marnie Villar MD LAB - URINE ORDERABLES Performing Organization Address City/[facility]/ZIP Code Phon e Number M [facility] [address] [place] [address] [place] [address] [place] [address], [place] [phone] (ABNORMAL) Protein random urine with Creat Ratio (08/16/2017 5:30 PM PIZZA [employer] TE[employer] MEMBER) Analysis Performed At Patho logist Time Signature Protein Random 0.32 g/L 08/16/2017 [place] Urine 6:36 PM [facility] Protein Total 0.22 (H) 0 - 0.2 08/16/2017 [place] Urine g/gr g/g Cr 6:36 PM [facility] Specimen Anatomical Collection Method Collection Time Receive d Time (Source) Location / / Volume Laterality Urine specimen URINE SPECIMEN 08/16/2017 5:30 PM 08/16 6:10 (specimen) OBTAINED BY CLEAN PIZZA H[employer] TE[employer] MEMBER PM [employer]ZZA H[employer] TEAM MEMBER CATCH PROCEDURE / Unknown Marnie Villar MD LAB - URINE ORDERABLES Performing Organization Address City/[facility]/ZIP Code Phon e Number M [facility] [address] [place] [address] [place] [id number] [place] [address], [place] [phone] (ABNORMAL) Glucose by meter (08/16/2017 5:14 PM [employer]BER) P athologist Signature Glucose 69 (L) 70 - 99 08/16/2017 POINT OF CARE mg/dL 5:21 PM [employer] TEST, GLUCOSE Specimen Anatomical Collection Method Collection Time Receive d Time (Source) Location / / Volume Laterality 08/16/2017 5:14 PM 8 5:21 [employer] PM [employer]BER Marnie Villar MD LAB - BEAKER POCT Performing Organization Address City/[facility]/ZIP Code Phon e Number [facility] POINT OF CARE TEST, GLUCOSE POINT OF CARE TEST, GLUCOSE Uric acid (08/16/2017 11:45 AM [employer]) athologist Signature Uric Acid 5.8 2.6 - 6.0 08/16/2017 [facility] mg/dL 12:40 PM [facility] Specimen Anatomical Collection Method Collection Time Receive d Time (Source) Location / / Volume Laterality Blood specimen 08/16/2017 11:45 8 (specimen) AM [employer]BER 12:18 PM [employer]BER Marnie Villar MD LAB - BLOOD ORDERABLES Performing Organization Address City/[facility] Phon e Number M [facility] [address] [address] [facility] [address] [phone] (ABNORMAL) Basic metabolic panel (08/16/2017 11:45 AM [employer]) athologist Signature Sodium 138 133 - 144 08/16/2017 [place] mmol/L 12:40 PM [facility] Potassium 4.1 3.4 - 5.3 08/16/2017 [facility] mmol/L 12:40 PM [facility] Chloride 106 94 - 109 08/16/2017 [facility] mmol/L 12:40 PM [facility] Carbon Dioxide 23 20 - 32 08/16/2017 [place] mmol/L 12:40 PM [facility] Anion Gap 9 3 - 14 08/16/2017 [facility] mmol/L 12:40 PM [facility] Glucose 64 (L) 70 - 99 08/16/2017 [place] mg/dL 12:40 PM [facility] Urea Nitrogen 12 7 - 30 08/16/2017 [place] mg/dL 12:40 PM [facility] Creatinine 0.79 0.52 - 08/16/2017 [facility] 1.04 mg/dL 12:40 PM [facility] GFR Estimate 85 >60 08/16/2017 [place] mL/min/1.7 12:[address] Comment: Non GFR Calc GFR Estimate If >90 >60 mL/min/1.7m2 08/16/2017 12:40 PM [facility] Comment: GFR Calc Calcium 8.6 8.5 - 10.1 mg/dL 08/16/2017 12:40 PM [facility] Specimen Anatomical Collection Method Collection Time Receive d Time (Source) Location / / Volume Laterality Blood specimen 08/16/2017 11:45 8 (specimen) AM [employer] 12:18 PM [employer] Marnie Villar MD LAB - BLOOD ORDERABLES Performing Organization Address City/State/ZIP [facility] Phon e Number [facility] [address] [place], [place] [address] [address] [address] [place], [place] [address], [facility] [phone] ALT (08/16/2017 11:45 AM [employer]BER) P athologist Signature ALT 13 0 - 50 U/L 08/16/2017 [facility] 12:[address] [facility] Specimen Anatomical Collection Method Collection Time Receive d Time (Source) Location / / Volume Laterality Blood specimen 08/16/2017 11:45 8 (specimen) AM [employer] 12:18 PM [employer]BER Marnie Villar MD LAB - BLOOD ORDERABLES Performing Organization Address City/State/ZIP [facility] Phon e Number [facility] [address] [place], [place] [address] [place] [address] [address] [place] [address] [address], [facility] [phone] AST (08/16/2017 11:45 AM [employer]BER) P athologist Signature AST 21 0 - 45 U/L 08/16/2017 [facility] 12:[address] [facility] Specimen Anatomical Collection Method Collection Time Receive d Time (Source) Location / / Volume Laterality Blood specimen 08/16/2017 11:45 8 (specimen) AM [employer] MEMBER 12:18 PM [employer] Marnie Villar MD LAB - BLOOD ORDERABLES Performing Organization Address City/[facility]/ZIP Code Phon e Number M [facility] [address] [place], [place] [address] [facility] [address] [place], [place] [address], [facility] [phone] ABO/Rh type and screen (08/16/2017 11:45 AM PI[employer] H[employer] TEAM MEMBER) [facility] Method Time Signature ABO A 08/16/2017 [place] 1:02 PM [facility] RH(D) Pos [facility] Antibody Neg 08/16/2017 [place] Screen 1:02 PM [facility] Test Valid [place] 08/16/2017 [facility] Only At [facility] 12:53 PM [facility] Specimen 08/19/2017 08/16/2017 [place] Expires 12:53 PM [facility] Specimen Anatomical Collection Method Collection Time Receive d Time (Source) Location / / Volume Laterality Blood specimen 08/16/2017 11:45 8 (specimen) AM [employer] 12:18 PM [employer] Marnie Villar MD LAB - BLOOD BANK TEST ORDER Performing Organization Address [facility] Phon e Number M [facility] [address] [place], [place] [address] [facility] [address] [place], [place] [address] [phone] CBC with platelets differential (08/16/2017 11:45 AM [employer] TE[employer] MEMBER) [facility] Method Time Signature WBC 8.7 4.0 - 08/16/2017 [facility] 11.0 12:24 PM [facility] 10e9/L [facility] RBC Count 5.07 3.8 - 5.2 08/16/2017 [place] 10e12/L 12:[address] [facility] Hemoglobin 13.7 11.7 - 08/16/2017 [facility] 15.7 g/dL 12:24 PM [facility] Hematocrit 43.3 35.0 - 08/16/2017 [facility] 47.0 % 12:[address] [facility] MCV 85 78 - 100 08/16/2017 [facility] fl 12:[address] [facility] MCH 27.0 26.5 - 08/16/2017 [facility] 33.0 pg 12:[address] [facility] MCHC 31.6 31.5 - 08/16/2017 [facility] 36.5 g/dL 12:[address] [facility] RDW 14.4 10.0 - 08/16/2017 [facility] 15.0 % 12:[address] [facility] Platelet Count 272 150 - 450 08/16/2017 [facility] 10e9/L 12:24 [facility] Diff Method Automated 08/16/2017 [facility] Method 12:24 [facility] % Neutrophils 70.6 % 08/16/2017 [facility] 12:24 [facility] % Lymphocytes 19.1 % 08/16/2017 [facility] 12:24 [facility] % Monocytes 8.1 % 08/16/2017 [facility] 12:[address] [facility] % Eosinophils 1.3 % 08/16/2017 [facility] 12:[address] [facility] % Basophils 0.3 % 08/16/2017 [facility] 12:[address] [facility] % Immature 0.6 % 08/16/2017 [facility] Granulocytes 12:[address] [facility] Nucleated RBCs 0 0 /100 08/16/2017 [facility] 12:[address] [facility] Absolute 6.1 1.6 - 8.3 08/16/2017 [facility] Neutrophil 10e9/L 12:[address] [facility] [facility] [facility] Absolute 1.7 0.8 - 5.3 08/16/2017 [facility] Lymphocytes 10e9/L 12:[address] [facility] Absolute 0.7 0.0 - 1.3 08/16/2017 [facility] Monocytes 10e9/L 12:[address] [facility] Absolute 0.1 0.0 - 0.7 08/16/2017 [facility] Eosinophils 10e9/L 12:24 [facility] Absolute 0.0 0.0 - 0.2 08/16/2017 [facility] Basophils 10e9/L 12:[address] [facility] Abs Immature 0.1 0 - 0.4 08/16/2017 [facility] Granulocytes 10e9/L 12:[address] [facility] Absolute 0.0 08/16/2017 [facility] Nucleated RBC 12:[address] [facility] Specimen Anatomical Collection Method Collection Time Receive d Time (Source) Location / / Volume Laterality Blood specimen 08/16/2017 11:45 8 (specimen) AM [employer] 12:19 PM [employer] Marnie Villar MD LAB - BLOOD ORDERABLES Performing Organization Address City/[facility]/ZIP Code Phon e Number [facility] [address], [place] [address] [facility] [address] [phone] Anti Treponema (08/16/2017 11:45 AM [employer]) Analysis Performed At Patho logist Time Signature Treponema Negative NEG^Negati 08/17/2017 [facility] 10:36 AM [facility] Specimen Anatomical Collection Method Collection Time Receive d Time (Source) Location / / Volume Laterality Blood specimen 08/16/2017 11:45 8 (specimen) AM [employer] 12:19 PM [employer] Marnie Villar MD LAB - BLOOD ORDERABLES Performing Organization Address City/State/ZIP Code Phon e Number [address] [address] [facility] Group B strep PCR (07/17/2017) athologist Signature Group B Strep negative PCR Patient Reported LAB - MICRO GENERAL ORDERABL ES Rubella Antibody IgG Quantitative (01/25/2017) Analysis Performed At Patho logist Time Signature Rubella ANNA IgG immune Rubella Antibody 1.59 IU/mL IgG Quantitative Specimen (Source) Anatomical Location Collection Method / Collectio n Time Received Time / Laterality Volume Blood specimen (specimen) Patient Reported LAB - BLOOD ORDERABLES HIV Antigen Antibody Combo (01/25/2017) Patholo gist Method Time Signature HIV Antigen Non Reactive Antibody Combo Specimen (Source) Anatomical Location Collection Method / Collectio n Time Received Time / Laterality Volume Blood specimen (specimen) Patient Reported LAB - BLOOD ORDERABLES Neisseria gonorrhoeae PCR (01/25/2017) P athologist Signature N Gonorrhea Negative PCR Patient Reported LAB - MICRO GENERAL ORDERABL ES Hepatitis B surface antigen (01/25/2017) P athologist Signature Hep B Surface Negative Agn Specimen (Source) Anatomical Location Collection Method / Collectio n Time Received Time / Laterality Volume Blood specimen (specimen) Patient Reported LAB - BLOOD ORDERABLES Chlamydia trachomatis PCR (01/25/2017) [facility] Method Time Signature Chlamydia Negative Trachomatis PCR Patient Reported LAB - MICRO GENERAL ORDERABL ES Anti Treponema (01/25/2017) [facility] Method Time Signature Treponema Non Reactive pallidum Antibody Specimen (Source) Anatomical Location Collection Method / Collectio n Time Received Time / Laterality Volume Blood specimen (specimen) Patient Reported LAB - BLOOD ORDERABLES documented in this encounter Visit Diagnoses Not on filedocumented in this encounter Administered Medications Inactive Administered Medications - up to 3 most recent administrations Medication Order MAR Action Action Date Dose Rate Site acetaminophen (TYLENOL) tablet 650 Given 08/20/2017 8:42 AM [employer] 650 mg mg 650 mg, Oral, EVERY 4 HOURS PRN, other, multimodal surgical pain management along with NSAIDS and opioid medication as indicated based on pain control and physical function., Starting on Sat08/20/17 at 0000, May give first dose 4 hours after last scheduled dose of acetaminophen Maximum acetaminophen dose from all sources = 75 mg/kg/day not to exceed 4 grams/day., Post-procedure bisacodyl (DULCOLAX) Suppository 10 mg 10 mg, Rectal, DAILY PRN, constipation, Starting on 08/19/17 at 0000, Start POD 2, Post-procedure calcium carbonate (TUMS) chewable tablet 500 Given 5:55 PM [employer] 500 mg mg 500 mg, Oral, DAILY PRN, heartburn, Starting on 08/16/17 at 1750 carboprost (HEMABATE) injection 250 mcg 250 mcg, Intramuscular, ONCE PRN, postpa rtum hemorrhage, Starting on 08/17/17 at 0153, For 1 dose, Start IF HEMORRHAGE, Post -procedure dextrose 5% in lactated ringers New Bag 08/17/2017 10:58 AM [employer] 125 mL/hr infusion at 125 mL/hr, Intravenous, CONTINUOUS, Subsequent IV at nurse's discretion. DC IV when tolerating fluids or at nurse's discretion & saline lock., Post-procedure, Starting on 08/17/17 at 0200, Until 08/20/17 at 1525 dextrose 50 % injection 25-50 mL 25-50 mL, Intravenous, EVERY 15 MIN PRN, low blood sug ar, Administer over 1-5 Minutes, Starting on 08/17/17 at 0126 , Use if have IV access, BG less than 70 mg/dL and meet dose criteria below: Dose if conscious and alert (or disorientated) and NPO = 25 mL Dose if unconscious / no t alert = 50 mL Vesicant. For ordered doses up to 25 mg, give IV Push undiluted. Give each 5g over 1 minute. diphenhydrAMINE (BENADRYL) capsule 25 mg 25 mg, Oral, EVERY 6 HOURS PRN, itching, Starting on S at 08/17/17 at 0153, Post-procedure diphenhydrAMINE (BENADRYL) injection 25 mg 25 mg, Intravenous, EVERY 6 HOURS PRN, i tching, Give IV only if unable to take PO, Administer over 1-2 Minutes, Starting on 08/17/17 at 0153, For ordered doses up to 50 mg, give IV Push undiluted. Give e ach 25mg over a minimum of 1 minute. Extend in non-emergency, Post-procedure glucagon injection 1 mg 1 mg, Subcutaneous, EVERY 15 MIN PRN, low blood sugar, May repeat x 1 only, Starting on 08/17/17 at 0126, May giv e SQ or IM. ONLY use glucagon IF patient has NO IV access AND is UNABLE to swallo w AND blood glucose is LESS than or EQUAL to 50 mg/dL. Give IV Push over 1 minute. Reconstitute with 1mL sterile water. glucose 40 % gel 15-30 g 15-30 g, Oral, EVERY 15 MIN PRN, low blo od sugar, Starting on 08/17/17 at 0126, Give 15 g for BG 51 to 69 mg/dL IF patie nt is conscious and able to swallow. Give 30 g for BG less than or equal to 50 mg/dL IF patient is conscious and able to swallow. Do NOT give glucose gel via enteral tube. IF patient has enteral tube: give apple juice 120 mL (4 oz or 15 g of CHO) via ente ral tube for BG 51 to 69 mg/dL. Give apple juice 240 mL (8 oz or 30 g of CHO) via enteral tube for BG less than or equal to 50 mg/dL. ~Oral gel is preferable for conscious and able to swallow patient. ~IF gel unavailable or patient refuses may provide apple juice 120 mL (4 oz or 15 g of CHO). Document juice on I and O fl owsheet. hydrocortisone 2.5 % cream Rectal, 3 TIMES DAILY PRN, hemorrhoids, Starting on 08/17/17 at 0153, Apply to hemorrhoids. Send only if nurse requests., Post-proced ure HYDROmorphone (PF) (DILAUDID) injection 0.3-0.5 mg 0.3-0.5 mg, Intravenous, EVERY 30 MIN MO N, severe pain, Starting on 08/17/17 at 0153, Offer at least every 2 hours. Notify provider fo r new orders if agent ineffective. 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 For ordered doses up t o 4 mg give IV Push undiluted. Administer each 2mg over 2-5 minutes., Post -procedure ibuprofen (ADVIL/MOTRIN) tablet 400 mg 400 mg, Oral, EVERY 6 HOURS PRN, cramping, Starting on 08/18/17 at 0400, Max dose: 3200 mg/day., Post-procedure ibuprofen (ADVIL/MOTRIN) tablet 600 mg 600 mg, Oral, EVERY 6 HOURS PRN, carmping, Starting on 08/18/17 at 0400, Max dose: 3200 mg/day., Post-procedure ibuprofen (ADVIL/MOTRIN) tablet 800 mg Given 08/20/2017 8:42 AM [employer] 800 mg 800 mg, Oral, EVERY 6 HOURS PRN, cramping, Starting on 08/18/17 at 0400, Max dose: 3200 mg/day., Post-procedure Given 08/19/2017 10:40 PM [employer] 800 mg Given 08/19/2017 4:34 PM [employer] 800 mg lactated ringers BOLUS 1,000 mL Intravenous, 1,000 mL, ONCE PRN, post pa rtum hemorrhage, Starting on 08/17/17 at 0153, For 1 dose, Rate: 500-1000 mL/hr. Start IF POSTP ARTUM HEMORRHAGE, Post-procedure lanolin ointment Topical, EVERY 1 HOUR PRN, dry skin, soreness, Startin g on 08/17/17 at 0153, Apply to sore nipples after feedings, Post-procedure lidocaine (LMX4) kit Topical, EVERY 1 HOUR PRN, pain, with VA D insertion or accessing implanted port., Starting on 08/17/17 at 0153, Do NOT give if patient has a history of allergy to any local anesthetic or any sage product. Apply 30 minutes prior to VAD insertion or port access. MAX Dose: 2.5 g (?? of 5 g t ube), Post-procedure lidocaine 1 % 1 mL 1 mL, Other, EVERY 1 HOUR PRN, mild pain with VAD insertion or accessing implanted port, Starting on 08/17/17 at 0153, Do NOT give if patient has a history of allergy to any local anesthetic or any sage product. MAX dose 1 mL subcutaneous OR intradermal in divided doses., Post-procedure methylergonovine (METHERGINE) injection 200 mcg 200 mcg, Intramuscular, ONCE PRN, postpa rtum hemorrhage, Starting on 08/17/17 at 0153, For 1 dose, Start IF HE MORRHAGE. CONTRAINDICATED if Blood Pressure greater than 140/80 and/or history of hypertension., P ost-procedure misoprostol (CYTOTEC) tablet 800 mcg 800 mcg, Rectal, ONCE PRN, he morrhage, Starting on 08/17/17 at 0153, For 1 dose, Dose requires rectal adminis tration of FOUR tablets of 200 mcg each., Post-procedure NO Rho (D) immune globulin (RhoGam) need ed - mother Rh POSITIVE CONTINUOUS PRN, Starting on 08/17/17 at 0153, Until Sat08/20/17 at 1525, Post-procedure omeprazole (priLOSEC) CR capsule 20 mg Given 08/16/2017 9:43 PM [employer] 20 mg 20 mg, Oral, 2 TIMES DAILY, First dose on Sat08/16/17 at 2115 ondansetron (ZOFRAN) injection 4 mg 4 mg, Intravenous, EVERY 6 HOURS PRN, nausea, vomiting , Administer over 2-5 Minutes, Starting on 08/17/17 at 0153, If nausea no t resolved in 15 minutes, notify provider before proceeding to prochlorperazine (COMPAZINE) [if ordered]. Irritant. For ordered doses up to 4 mg, give IV Push undiluted over 2-5 minutes., Post-procedure oxyCODONE IR (ROXICODONE) tablet 5-10 mg 5-10 mg, Oral, EVERY 3 HOURS PRN, pain c ontrol or improvement in physical function. Hold dose for analgesic side effects., S tarting on 08/17/17 at 0153, Start with the lowest dose. May adjust dose by 5 mg every 3 hours as needed. Notify provider to assess for uncontrolled pain or analgesic side effe cts. Hold while on ROB[employer] SYSTEMS ENGINEER or with regular IV opioid dosing. Maximum t otal is 80 mg in 24 hours., Post-procedure oxytocin (PITOCIN) 30 units in New Bag 08/17/2017 3:03 AM [employer] 100 mL/hr 100 mL/hr 500 mL 0.9% NaCl infusion 100 mL/hr, Intravenous, CONTINUOUS, Starting on 08/17/17 at 0200, Anesthesia Provider to administer at 340 mL/hr for 30 minutes (or longer per provider discretion) then decrease to 100 mL/hr. Continue until a total of 2 bags administered (1st bag initiated by Anesthesia Provider.) Discontinue IV or saline lock IV per nurse discretion., Post-procedure oxytocin (PITOCIN) 30 units in 500 mL 0. 9% NaCl infusion 340 mL/hr, Intravenous, CONTINUOUS PRN, for hemorrhage UNTIL bleeding subsided, Starting on 08/17/17 at 015 3, When bleeding subsides decrease rate to 100 mL/hr. Notify provider immediately when infusion b egun., Post-procedure oxytocin (PITOCIN) injection 10 Units 10 Units, Intramuscular, ONCE PRN, hemorrha ge. IF no IV access is available., Starting on 08/17/17 at 0153, For 1 dos e, Post-procedure senna-docusate (SENOKOT-S;PERICOLACE) Given 08/19/2017 10:40 PM [employer] 1 tablet 8.6-50 MG per tablet 1 tablet 1 tablet, Oral, 2 TIMES DAILY PRN, constipation, Starting on 08/17/17 at 0153, If no bowel movement in 24 hours, increase to 2 tablets PO. Hold for loose stools. Preferred agent for constipation related to opioids., Post-procedure Given 08/18/2017 8:24 AM [employer] 1 tablet senna-docusate (SENOKOT-S;PERICOLACE) Given 08/20/2017 8:[address] 2 tablets 8.6-50 MG per tablet 2 tablet 2 tablet, Oral, 2 TIMES DAILY PRN, constipation, Starting on 08/17/17 at 0153, Hold for loose stools. Preferred agent for constipation related to opioids., Post-procedure Given 08/19/2017 8:40 AM [employer] 2 tablets Given 08/18/2017 10:32 PM [employer] 2 tablets simethicone (MYLICON) chewable tablet 80 mg 80 mg, Oral, 4 TIMES DAILY PRN, other, g as, Starting on 08/17/17 at 0153, Chew., Post-procedure sodium phosphate (FLEET ENEMA) 1 enema 1 enema, Rectal, DAILY PRN, constipation , , Starting on 08/19/17 at 0000, Use if bisacodyl not effective. Start POD 2., Post-procedure documented in this encounter Active and Recently Administered Medications Times are shown in [employer]. Scheduled Medication Order 08/18/2017 08/19/2017 08/20/2017 acetaminophen (TYLENOL) tablet 975 mg 0415 (Given - Pr ovider: Parris Medrano RN)1427 (Given - Provider: Lucia Pratt RN)2232 (Given - Provider: Dania Vargas RN) 0639 (Given - Provider: Parris Medrano RN)1436 (Given - Provider: Mary Jane Welsh RN)2240 (Given - Provider: Silva Mabry LPN) 975 mg, Oral, EVERY 8 HOURS, First dose on 08/17/17 at 0200, For 3 days, Do not use if patient has an active opioid/acetaminophen combined analgesic product ordered for pain. Maximum acetaminophen do se from all sources = 75 mg/kg/day not to exceed 4 grams/day., P ost-procedure clindamycin (CLEOCIN) infusion 900 mg (CANCELED) 08 (New Bag - Provider: Lucia Pratt RN) STAT, 900 mg, Intravenous, EVERY 8 HOURS , First dose on 08/17/17 at 0600, This medication is not recommended if patient is . Inform patient/minimize use. , Indications: Possible Chorioamnitis during Labor gentamicin (GARAMYCIN) 140 mg in NaCl 0. 9 % 50 mL intermittent infusion (CANCELED) 0100 (New Bag - Provider: Parris Medrano, RN) Routine, 140 mg (rounded from 132.4 mg = 2 mg/kg ? 66.2 kg Adjusted weight), Intravenous, EVERY 8 HOURS, First dose on 08/17/17 at 0700, Indications: possible chorioamnionitis ketorolac (TORADOL) injection 30 mg (COMPLETED) 0059 ( Given - Provider: Parris Medrano RN) 30 mg, Intravenous, EVERY 6 HOURS, First dose on 08/17/17 at 0415, For 24 hours, Give first dose in PACU (alright to give with narcotic analgesic if ordered) X 24 hours For ordered doses up to 30 mg, give IV Push undiluted over 2 minutes., Post-procedure measles, mumps and rubella vaccine (MMR) injection 0.5 mL 1355 (Not Given - Provider: Lucia Pratt RN - Reason: Other - Comment: immume) 0.5 mL, Subcutaneous, ONCE, 08/18/17 at 1000, For 1 dose, Give ONLY if not immune or equivocal / borderline / low level Rubella titer., Post-procedure omeprazole (priLOSEC) CR capsule 20 mg 1353 (Not Given - Provider: Lucia Pratt RN - Reason: Patient/family refused)2255 (Not Given - Provider: Dania Vargas RN - Reason: Patient/family refused) 0836 (Not Given - Provider: Mary Jane Welsh RN - Reason: Patient/family refused)2234 (Not Given - Provider: Yane Holden RN - Reason: Patient/family refused) 1037 (Not Given - Provider: Mary Jane Welsh RN - Reason: Patient/family refused) 20 mg, Oral, 2 TIMES DAILY, First dose on Sat08/16/17 at 2115 Tdap (pcjeosx-eqcweckowm-phsom pertussis) (ADACEL) inj ection 0.5 mL 1354 (Not Given - Provider: Lucia Pratt RN - Reason: Other - Comment: given 05/29/17) 0.5 mL, Intramuscular, ONCE, 08/18/17 at 1000, For 1 dose, If not given during current , then it is administered immediately prior to discharge. Tdap is administered every pregnan cy irrespective of previous immunization history. To maximize maternal antibody response and passive antibody transfer to the , optimal timing is between 27 and 36 weeks gestation during the ., Post-procedure Continuous Medication Order 08/18/2017 08/19/2017 08/20/2017 dextrose 5% in lactated ringers infusion at 125 mL/hr, Intravenous, CONTINUOUS, S ubsequent IV at nurse's discretion. DC IV when tolerating fluids or at nurse's discretion & saline lock., Post- procedure, Starting on 08/17/17 at 0200, Until Sat08/20/17 at 1525 oxytocin (PITOCIN) 30 units in 500 mL 0.9% NaCl infusion 100 mL/hr, Intravenous, CONTINUOUS, Star ting on 08/17/17 at 0200, Anesthesia Provider to administer at 340 mL/hr for 30 minutes (or longer per provider discretion) then decrease to 100 mL/hr. Continu e until a total of 2 bags administered ( 1st bag initiated by Anesthesia Provider.) Discontinue IV or saline lock IV per nurse discretion., Post-procedure PRN Medication Order 08/18/2017 08/19/2017 08/20/2017 acetaminophen (TYLENOL) tablet 650 mg 0842 (Given - Provider: Mary Jane Welsh RN) 650 mg, Oral, EVERY 4 HOURS PRN, other, multimodal surgical pain management along with NSAIDS and opioid medication as indicated based on pain control and physical function., Starting on Sat08/20/17 at 0000, May give first dose 4 hours after last scheduled dose of acetaminophen Maximum acetaminophen dose from all sources = 75 mg/kg/day not to exceed 4 grams/day., Post-procedure bisacodyl (DULCOLAX) Suppository 10 mg 10 mg, Rectal, DAILY PRN, constipation, Starting on 08/19/17 at 0000, Start POD 2, Post-procedure calcium carbonate (TUMS) chewable tablet 500 mg 500 mg, Oral, DAILY PRN, heartburn, Starting on Sat08/16/17 at 1 750 carboprost (HEMABATE) injection 250 mcg 250 mcg, Intramuscular, ONCE PRN, postpa rtum hemorrhage, Starting on 08/17/17 at 0153, For 1 dose, Start IF HEMORRHAGE, Post-procedure dextrose 50 % injection 25-50 mL(Linked Group 1) 25-50 mL, Intravenous, EVERY 15 MIN PRN, low blood sugar, Administer over 1-5 Minutes, Starting on 08/17/17 at 0126, Use if have IV access, BG less than 70 mg/dL and meet dose criteria below: Dose if conscious and alert (or disorientated) and NPO = 25 mL Dose if unconscious / not alert = 50 mL Vesicant. For ordered doses up to 25 mg, give IV Push undiluted. Give each 5g over 1 minute. diphenhydrAMINE (BENADRYL) capsule 25 mg(Linked Group 2) 25 mg, Oral, EVERY 6 HOURS PRN, itching, Starting on 08/17/17 at 0153, Post-procedure diphenhydrAMINE (BENADRYL) injection 25 mg(Linked Group 2) 25 mg, Intravenous, EVERY 6 HOURS PRN, i tching, Give IV only if unable to take PO, Administer over 1-2 Minutes, Starting on 08/17/17 at 0153, For ordered doses up to 50 mg, give IV Push undiluted. Gi ve each 25mg over a minimum of 1 minute. Extend in non-emergency, Post-procedure glucagon injection 1 mg(Linked Group 1) 1 mg, Subcutaneous, EVERY 15 MIN PRN, lo w blood sugar, May repeat x 1 only, Starting on 08/17/17 at 0126, May give SQ or IM. ONLY use glucagon IF patient has NO IV access AND is UNABLE to swallow AND blood glucose is LESS than or EQUAL to 50 mg/dL. Give IV Push over 1 minute. Reconstitute with 1mL sterile water. glucose 40 % gel 15-30 g(Linked Group 1) 15-30 g, Oral, EVERY 15 MIN PRN, low blo od sugar, Starting on 08/17/17 at 0126, Give 15 g for BG 51 to 69 mg/dL IF patient is conscious and able to swallow. Give 30 g for BG less than or equal to 50 mg/dL IF patient is conscious and able t o swallow. Do NOT give glucose gel via enteral tube. IF patient has enteral tube: give apple juice 120 mL (4 oz or 15 g of CHO) via enteral tube for BG 51 to 69 m g/dL. Give apple juice 240 mL (8 oz or 3 0 g of CHO) via enteral tube for BG less than or equal to 50 mg/dL. ~Oral gel is preferable for conscious and able to swallow patient. ~IF gel unavailable or kye ent refuses may provide apple juice 120 mL (4 oz or 15 g of CHO). Document juice on I and O flowsheet. hydrocortisone 2.5 % cream Rectal, 3 TIMES DAILY PRN, hemorrhoids, Starting on 08/17/17 at 0153, Apply to hemorrhoids. Send only if nurse requests., Post-procedure HYDROmorphone (PF) (DILAUDID) injection 0.3-0.5 mg 0.3-0.5 mg, Intravenous, EVERY 30 MIN MO N, severe pain, Starting on 08/17/17 at 0153, Offer at least every 2 hours. Notify provider for new orders if agent ineffective. 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 For ordered doses up to 4 mg give IV Push undiluted . Administer each 2mg over 2-5 minutes., Post-procedure ibuprofen (ADVIL/MOTRIN) tablet 400 mg(Linked Group 3) 0737 (See Alternative - Provider: Parris Medrano RN)1427 (See Alternative - Provider: Lucia Pratt RN)2236 (See Alternative - Provider: Dania Vargas RN) 0435 (See Alternative - Provider: Parris Medrano RN)1034 (See Alternative - Provider: Mary Jane Welsh RN)1634 (See Alternative - Provider: Yane Holden RN)2240 (See Alternative - Provider: Silva Mabry LPN) 0842 (See Alternative - Provider: Mary Jane Welsh RN) 400 mg, Oral, EVERY 6 HOURS PRN, crampin g, Starting on 08/18/17 at 0400, Max dose: 3200 mg/day., Post-procedure ibuprofen (ADVIL/MOTRIN) tablet 600 mg(Linked Group 3) 0737 (See Alternative - Provider: Parris Medrano RN)1427 (See Alternative - Provider: Lucia Pratt RN)2236 (See Alternative - Provider: Dania Vargas RN) 0435 (See Alternative - Provider: Parris Medrano RN)1034 (See Alternative - Provider: Mary Jane Welsh RN)1634 (See Alternative - Provider: Yane Holden RN)2240 (See Alternative - Provider: Silva Mabry LPN) 0842 (See Alternative - Provider: Mary Jane Welsh RN) 600 mg, Oral, EVERY 6 HOURS PRN, carmpin g, Starting on 08/18/17 at 0400, Max dose: 3200 mg/day., Post-procedure ibuprofen (ADVIL/MOTRIN) tablet 800 mg(Linked Group 3) 0737 (Given - Provider: Parris Medrano RN)1427 (Given - Provider: Lucia Pratt RN)2236 (Given - Provider: Dania Vargas RN) 0435 (Given - Provider: Parris Medrano RN)1034 (Given - Provider: Mary Jane Welsh RN)1634 (Given - Provider: Yane Holden RN)2240 (Given - Provider: Silva Mabry LPN) 0842 (Given - Provider: Mary Jane Welsh RN) 800 mg, Oral, EVERY 6 HOURS PRN, crampin g, Starting on 08/18/17 at 0400, Max dose: 3200 mg/day., Post-procedure lactated ringers BOLUS 1,000 mL Intravenous, 1,000 mL, ONCE PRN, post pa rtum hemorrhage, Starting on 08/17/17 at 0153, For 1 dose, Rate: 500-1000 mL/hr. Start IF HEMORRHAGE, Post-procedure lanolin ointment Topical, EVERY 1 HOUR PRN, dry skin, sor eness, Starting on 08/17/17 at 0153, Apply to sore nipples after feedings, Post-procedure lidocaine (LMX4) kit Topical, EVERY 1 HOUR PRN, pain, with VA D insertion or accessing implanted port., Starting on 08/17/17 at 0153, Do NOT give if patient has a history of allergy to any local anesthetic or any sage product. Apply 30 minutes prior to VAD i nsertion or port access. MAX Dose: 2.5 g (?? of 5 g tube), Post-procedure lidocaine 1 % 1 mL 1 mL, Other, EVERY 1 HOUR PRN, mild pain with VAD insertion or accessing implanted port, Starting on 08/17/17 at 0153, Do NOT give if patient has a history of allergy to any local anesthetic or any sage product. MAX dose 1 mL subcutaneo us OR intradermal in divided doses., Post-procedure methylergonovine (METHERGINE) injection 200 mcg 200 mcg, Intramuscular, ONCE PRN, postpa rtum hemorrhage, Starting on 08/17/17 at 0153, For 1 dose, Start IF HEMORRHAGE. CONTRAINDICATED if Blood Pressure greater than 140/80 and/or history of hypertension., Post-procedure misoprostol (CYTOTEC) tablet 800 mcg 800 mcg, Rectal, ONCE PRN, he morrhage, Starting on 08/17/17 at 0153, For 1 dose, Dose requires rectal administration of FOUR tablets of 200 mcg each., Post-procedure NO Rho (D) immune globulin (RhoGam) needed - mother Rh POSITIVE CONTINUOUS PRN, Starting on 08/17/17 at 0153, Until Sat08/20/17 at 1525, Post-procedure ondansetron (ZOFRAN) injection 4 mg 4 mg, Intravenous, EVERY 6 HOURS PRN, na usea, vomiting, Administer over 2-5 Minutes, Starting on 08/17/17 at 0153, If nausea not resolved in 15 minutes, notify provider before proceeding to prochlorp erazine (COMPAZINE) [if ordered]. Irrita nt. For ordered doses up to 4 mg, give IV Push undiluted over 2-5 minutes., Post-procedure oxyCODONE IR (ROXICODONE) tablet 5-10 mg 5-10 mg, Oral, EVERY 3 HOURS PRN, pain c ontrol or improvement in physical function. Hold dose for analgesic side effects., Starting on 08/17/17 at 0153, Start with the lowest dose. May adjust dose by 5 mg every 3 hours as needed. Notify pr ovider to assess for uncontrolled pain or analgesic side effects. Hold while on ROBOTICS SYSTEMS ENGINEER or with regular IV opioid dosing. Maximum total is 80 mg in 24 hours., Post-procedure oxytocin (PITOCIN) 30 units in 500 mL 0.9% NaCl infusion 340 mL/hr, Intravenous, CONTINUOUS PRN, for hemorrhage UNTIL bleeding subsided, Starting on 08/17/17 at 0153, When bleeding subsides decrease rate to 100 mL/hr. Notify provider immediately when infusion begun., Post-procedure oxytocin (PITOCIN) injection 10 Units 10 Units, Intramuscular, ONCE PRN, postp artum hemorrhage. IF no IV access is available., Starting on 08/17/17 at 0153, For 1 dose, Post-procedure senna-docusate (SENOKOT-S;PERICOLACE) 8. 6-50 MG per tablet 1 tablet(Linked Group 4) 0824 (Given - Provider: Lucia Pratt RN)2231 (See Alternative - Provider: Dania Vargas RN) 0840 (See Alternative - Provider: Mary Jane Welsh RN)0 (Given - Provider: Silva Mabry LPN) 0842 (See Alternative - Provider: Mary Jane Welsh RN) 1 tablet, Oral, 2 TIMES DAILY PRN, const ipation, Starting on 08/17/17 at 0153, If no bowel movement in 24 hours, increase to 2 tablets PO. Hold for loose stools. Preferred agent for constipation related to opioids., Post-procedure senna-docusate (SENOKOT-S;PERICOLACE) 8. 6-50 MG per tablet 2 tablet(Linked Group 4) 0824 (See Alternative - Provider: Lucia Pratt RN)2231 (Given - Provider: Dania Vargas RN) 0840 (Given - Provider: Mary Jane Welsh RN)2239 (See Alternative - Provider: Silva Mabry LPN) 0842 (Given - Provider: Mary Jane Welsh RN) 2 tablet, Oral, 2 TIMES DAILY PRN, const ipation, Starting on 08/17/17 at 0153, Hold for loose stools. Preferred agent for constipation related to opioids., Post-procedure simethicone (MYLICON) chewable tablet 80 mg 80 mg, Oral, 4 TIMES DAILY PRN, other, g as, Starting on 08/17/17 at 0153, Chew., Post-procedure sodium phosphate (FLEET ENEMA) 1 enema 1 enema, Rectal, DAILY PRN, constipation , , Starting on 08/19/17 at 0000, Use if bisacodyl not effective. Start POD 2., Post-procedure Linked Groups Order Group 1: glucose 40 % gel 15-30 gJump to med 15-30 g, Oral, EVERY 15 MIN PRN, low blo od sugar, Starting on 08/17/17 at 0126
Give 15 g for BG 51 to 69 mg/dL IF patient is conscious and able to swallow. Give 30 g for BG less than or equa l to 50 mg/dL IF patient is conscious an d able to swallow. Do NOT give glucose gel via enteral tube. IF patient has enteral tube: give apple juice 120 mL (4 oz or 15 g of CHO) via ent eral tube for BG 51 to 69 mg/dL. &n bsp;Give apple juice 240 mL (8 oz or 30 g of CHO) via enteral tube for BG less than or equal to 50 mg/dL. ~Oral gel is preferable for c onscious and able to swallow patient. &n bsp;~IF gel unavailable or patient refuses may provide apple juice 120 mL (4 oz or 15 g of CHO). Document juice on I and O flowsheet.
Or dextrose 50 % injection 25-50 mLJump to med 25-50 mL, Intravenous, EVERY 15 MIN PRN, low blood sugar, Administer over 1-5 Minutes, Starting on 08/17/17 at 0126
Use if have IV access, BG less than 70 mg/dL and meet dose criteria below: Dose if conscious and alert (or di sorientated) and NPO = 25 mL Dose if unconscious / not alert = 50 mL Vesicant. For ordered doses up to 25 mg, give IV Push undiluted. Give each 5g over 1 minute.
Or glucagon injection 1 mgJump to med 1 mg, Subcutaneous, EVERY 15 MIN PRN, lo w blood sugar, May repeat x 1 only, Starting on 08/17/17 at 0126
May give SQ or IM. ONLY use glucagon IF patient has NO IV access AND is UNABLE to swa llow AND blood glucose is LESS than or E QUAL to 50 mg/dL. Give IV Push over 1 minute. Reconstitute with 1mL sterile water.
Group 2: diphenhydrAMINE (BENADRYL) capsule 25 mgJump to med 25 mg, Oral, EVERY 6 HOURS PRN, itching, Starting on 08/17/17 at 0153, Post-procedure Or diphenhydrAMINE (BENADRYL) injection 25 mgJump to med 25 mg, Intravenous, EVERY 6 HOURS PRN, i tching, Give IV only if unable to take PO, Administer over 1-2 Minutes, Starting on 08/17/17 at 0153
For ordered doses up to 50 mg, give IV Push undil uted. Give each 25mg over a minimum of 1 minute. Extend in non-emergency
Post-procedure Group 3: ibuprofen (ADVIL/MOTRIN) tablet 400 mgJump to med 400 mg, Oral, EVERY 6 HOURS PRN, crampin g, Starting on 08/18/17 at 0400
Max dose: 3200 mg/day.
Post-procedure Or ibuprofen (ADVIL/MOTRIN) tablet 600 mgJump to med 600 mg, Oral, EVERY 6 HOURS PRN, carmpin g, Starting on 08/18/17 at 0400
Max dose: 3200 mg/day.
Post-procedure Or ibuprofen (ADVIL/MOTRIN) tablet 800 mgJump to med 800 mg, Oral, EVERY 6 HOURS PRN, crampin g, Starting on 08/18/17 at 0400
Max dose: 3200 mg/day.
Post-procedure Group 4: senna-docusate (SENOKOT-S;PERICOLACE) 8.6-50 MG per tablet 1 tabletJump to med 1 tablet, Oral, 2 TIMES DAILY PRN, const ipation, Starting on 08/17/17 at 0153
If no bowel movement in 24 hours, increase to 2 tablets PO. Hold for loose stools. P referred agent for constipation related to opioids.
Post-procedure Or senna-docusate (SENOKOT-S;PERICOLACE) 8.6-50 MG per tablet 2 tabletJump to med 2 tablet, Oral, 2 TIMES DAILY PRN, const ipation, Starting on 08/17/17 at 0153
Hold for loose stools. Preferred agent for constipation related to opioids.
Post-procedure documented in this encounter Care Teams Chair Trimmer Relationship Specialty Start Date End Date Leela Ruano MD PCP - General [facility] 08/06/17 [facility] [address] [address] [id number] documented as of this encounter
--- OUTSIDE RECORDS SUMMARY | 2022-03-08 12:42 | XMS_ITS | Encounter Summary ---
:1985 Author Organization [employer] Address [address] [place] [address] Care Team Providers Name Role Phone Leela Ruano MD Primary Care Provider Encounter Details Date Type Department Care Team Description 01/12/2022 Orders Only [facility] DEPARTMENT Provider, Adela wellington [place] [address] Social History Tobacco Use Types Packs/Day Years [...] on one occasion? Comment: Alcoholic Drinks/day: Amount:1-2 016 drinks; Freq:2-3/week ; Sex Assigned at Date Recorded Not on file documented as of this encounter Plan of Treatment Not on filedocumented as of this encounter Procedures Procedure Name Priority Date/Time Associated Diagnosis Comme nts LABORATORY REPORT 01/12/2022 Results fo r this procedure are in the resu lts section. documented in this encounter Results LABORATORY REPORT (01/12/2022) Narrative This result has an attachment that is no t available. Interface Provider MD DUMMY/OTHER/AR documented in this encounter Visit Diagnoses Not on filedocumented in this encounter Care Teams [employer] Driver Relationship Specialty Start Date End Date Leela Ruano MD PCP - General 10/31/10 [id number] [address] [place] [id number] documented as of this encounter
--- OUTSIDE RECORDS SUMMARY | 2022-03-08 12:42 | XMS_ITS | Encounter Summary ---
:1985 Author Organization [facility] Address [facility] [place] [address] Care Team Providers Name Role Phone Leela Ruano MD Primary Care Provider Reason for Visit Reason Comments Induction Of Labor Auth/Cert Specialty Diagnoses / Procedures Referred By Contact Refer red To Contact lotus notes administrator Diagnoses Rh Labor And Delivery Procedures LABOR AND DELIVERY [address] [place], [place] [address] Phone: Fax: Referral ID Status Reason Start Date Expiration Date Visits Requ ested Visits Authorized [id number] 1 1 Encounter Details Date Type Department Care Team Description 08/16/2017 - [facility] Marnie Villar MD [facility] [id number] [facility] [address] [place] [address] delivery 08/20/2017 Encounter [facility] Lia Zacarias MD [facility] [address] [facility] [address] [place], [place] [id number] delivered (Primary [address]) [place] [address] Social History Tobacco Use Types Packs/Day Years Used Date Former Smoker Smokeless Tobacco: Never Used Alcohol Use Standard Drinks/Week Comments No 0 (1 standard drink = 0.6 oz pure alcoho l) Sex Assigned at Date Recorded Female 08/03/2021 2:35 PM PEOPLESOFT PROGRAMMER documented as of this encounter Last Filed Vital Signs Vital Sign Reading Time Taken Comments Blood Pressure 137/90 08/20/2017 8:34 AM PEOPLESOFT PROGRAMMER Pulse - - Temperature 36.5 ??C (97.7 ??F) 08/20/2017 8:34 AM PEOPLESOFT PROGRAMMER Respiratory Rate 18 08/20/2017 8:34 AM PEOPLESOFT PROGRAMMER Oxygen Saturation 96% 08/17/2017 8:20 AM PEOPLESOFT PROGRAMMER Inhaled Oxygen Concentration - - Weight 83.5 kg (184 lb) 08/16/2017 11:00 AM PEOPLESOFT PROGRAMMER Height 162.6 cm (5' 4) 08/16/2017 11:00 AM PEOPLESOFT PROGRAMMER Body Mass Index 31.58 08/16/2017 11:00 AM PEOPLESOFT PROGRAMMER documented in this encounter Discharge Summaries Lia Zacarias MD - 08/16/2017 10:52 AM CST Post-Operative Note and Discharge Summary Leodan Milligan Date of : 1985 Age: [age] year old Date of Admission: 08/16/2017 Date of Discharge: 08/20/2017 1:00 PM Admitting Physician: Lia Zacarias MD Discharge Physician: Lia Zacarias MD Discharging Service: Obstetrics and Gynecology Home clinic: [facility] Admission Diagnoses: Indication for care in [...] provider in 6 weeks Lia Zacarias MD LESOFT PROGRAMMER documented in this encounter Discharge Instructions Discharge InstructionsSoco HutchisonALVARO - 08/20/2017 10:38 AM CST Postop Instructions [phone] [phone] Activity ?? Do not lift more than [...] urgently (use the toilet veryquickly), or it wdae when you urinate. ?? Nausea and vomiting. [...] questions or concerns after you return home. LESOFT PROGRAMMER documented in this encounter Medications at Time [...] Discharge home prec reviewed RTC 6 weeks LESOFT PROGRAMMER Marcie Sun PA-C - 08/19/2017 8:48 AM CST # 2 Post op . 40 2/7 weeks. Gest Diabetic. LGA. Pt states doing well. Nursing. Pain well controlled. Afebrile VSS. Hgb 10.5. Fundus firm light flow. Incision dry and intact. Passing flatus. Voiding w/o problems. Ext: w trace edema no pain. Normal postop course. Plan routine postop care. Plan to discharge to home 08/20. LESOFT PROGRAMMER Associated attestation - Asuncion Barnes MD - 08/19/2017 11:09 AM PEOPLESOFT PROGRAMMER Physician Attestation I agree with the information in this note. Memo Alex MD - 08/18/2017 8:47 AM CST Afebrile. Abdomen is soft nontender. Dressing removed, incision is clean and dry. Tolerating diet, good pain control. Afebrile for 24 hours. Imp normal post op course. Plan Discontinue IV antibiotics. LESOFT PROGRAMMER Memo Rosado MD - 08/17/2017 8:26 AM CST Mild elevation of temperature to 101.2 after her surgery, now on clindamycin and gent. No complaintsre incision. Tolerating diet, good pain control. Imp Post op c section Plan Continue antibiotics for at least 24 hours, otherwise routine post operative care. LESOFT PROGRAMMER Lia Zacarias MD - 08/17/2017 12:18 AM [...] primary section. Consent signed. Lia Zacarias MD LESOFT PROGRAMMER Marnie Villar MD - 08/16/2017 12:33 PM [...] labs pending. 3. GBS negative. Marnie Villar LESOFT PROGRAMMER documented in this encounter H&P Notes Lia [...] FHT--175, moderate LTV, no accels, no decels Liscomb---ctx every 1-3 min Data: All laboratory data reviewed Lia Zacarias MD Marnie Gallo MD - 08/16/2017 12:33 PM CST No significant change in general health status based on examination of the patient, review of Nursing Admission Database and record. EFW: 8lb 8oz Marnie Villar LESOFT PROGRAMMER documented in this encounter Consult Notes Luther Dale LSW - 08/19/2017 11:52 AM CST D) SW responding to automatic referral, met with Leodan and Jovi who are and reside in [place]. Their baby Charleen is their first and is in the NICU for respiratory distress. They are prepared for her at home and are not on WIC. Leodan has 6 weeks off work and Jovi has one week off. Leodan's mother who lives in [place] will live with the couple for awhile [...] their new daughter. SW did not observe parent/ bonding at this time due to baby being in NICU. Extended family live nearby and are very supportive. P) SW will continue to follow family while Charleen is in the NICU. LESOFT PROGRAMMER documented in this encounter Miscellaneous Notes Note - Jemma Samson RN - 08/20/2017 1:16 PM CST CLIFFORD to see patient. Her baby was using SNS and a nipple shield in NICU. Today she was planning on transitioning to formula via SNS when donor milk is no longer available at home. CLIFFORD encouraged patient to pump so we could [...] follow up phone call within a week. LESOFT PROGRAMMER Plan of Care - Mary Jane Welsh [...] cares and is able to care for infant. Action: Patient medicated during the shift for [...] time. Response: Positive attachment behaviors observed with infant. Support persons present. Plan: Anticipate discharge home with . LESOFT PROGRAMMER Plan of Care - Bhavesh Moya RN [...] present and supportive, bonding well with . LESOFT PROGRAMMER Plan of Care - Yane Holden RN [...] and very attentive to pt and . LESOFT PROGRAMMER Note - Soco Santoro RN - 08/19/2017 [...] pump. Will continue to follow and support. LESOFT PROGRAMMER Plan of Care - Mary Jane Welsh RN - 08/19/2017 12:59 PM CST Problem: Patient Care Overview Goal: Plan of Care/Patient Progress Review Patient meeting expected goals this shift. Pain controlled with use of oral pain medications. Incision open to air, well-approximated. Up ad suzanne, ambulating to NICU to be with baby. LESOFT PROGRAMMER Note - Soco Santoro RN - 08/19/2017 11:58 AM CST This note was copied from a baby's chart. As LC assisting with 1000 breast feeding. Charleen is sleepy after being awake while in bed. Allowed to be at breast and STS with some oral stimulation before she latched with 24mm nipple shield. Melissahas only gtts of colostrum so utilized SNS to keep Charleen at breast. Strong suck easily transferred 27mL via SNS. Changed positioning to football hold and that seemed to be easier for Leodan. Recommend STS PRIOR to feeding and continue use of 24mm nipple shield. Will continue to follow and support. LESOFT PROGRAMMER Plan of Care - Parris Medrano RN [...] sent EBM to NICU. Meeting expected goals. LESOFT PROGRAMMER Plan of Care - Dania Vargas RN [...] Continue to monitor per pt care plan. LESOFT PROGRAMMER Plan of Care - Lucia Pratt RN - 08/18/2017 1:27 PM CST Problem: Patient Care Overview Goal: Plan of Care/Patient Progress Review Outcome: Improving VSS. Antibiotics discontinued this morning per Dr. Rosado, IV removed. Pain well controlled with oral tylenol and ibuprofen. Pt in NICU frequently this shift with . Using breastpump. Will continue to monitor. LESOFT PROGRAMMER Plan of Care - Parris Medrano RN [...] and bring EBM to the NICU for . Did not pump this shift. Education provided on how to use hand expression or pumping to increase milk supply. Meeting expected goals. LESOFT PROGRAMMER Plan of Care - Dania Vargas RN [...] provided. Contnue to monitor per care plan. LESOFT PROGRAMMER Plan of Care - Amanda Landin RN [...] been afebrile this shift. Support persons present. LESOFT PROGRAMMER Provider Notification - Amanda Landin RN - 08/17/2017 8:20 AM CST 08/17/17 0820 Provider Notification Provider Name/Title Dr. Rosado Method of Notification At Bedside Dr. Rosado at bedside. Plan to take pandya out at lunch time and get pt up and moving. MD updated that pt is on IV Clindamycin and IV Gentamycin--temps improving. MD assessed pt--POC reviewed. All questions answered. LESOFT PROGRAMMER Provider Notification - Yanira Pena RN - 08/17/2017 5:20 AM PEOPLESOFT PROGRAMMER 08/17/17 0520 Provider Notification Provider Name/Title Dr. [...] Gentamycin for 24 hours, then will re-evaluate. LESOFT PROGRAMMER Plan of Care - Yanira Pena RN [...] Response: Patient tolerated transfer and is stable. LESOFT PROGRAMMER Plan of Care - Yanira Pena RN - 08/17/2017 3:10 AM CST Went down to NICU with to see baby in NICU. LESOFT PROGRAMMER Op Note - Lia Zacarias MD - 08/17/2017 1:36 AM CST DATE OF PROCEDURE: 08/17/2017 PREOPERATIVE DIAGNOSES: 1. A 32-year-old G1,P0 at 40 and 2 weeks gestation with gestational diabetes type A1. 2. Suspected large size and cephalopelvic disproportion. 3. Arrest of descent. POSTOPERATIVE DIAGNOSES: 1. A 32-year-old at 40 and 2 weeks gestation with gestational diabetes type A1. 2. Confirmed LGA infant with a deep arrest in pelvis. PROCEDURE: [...] quick delivery of the remainder of the infant. Cord was clamped and cut and the was handed off immediately to the NICU [...] pounds 6 ounces. Apgars pending with NICU. was admitted to the NICU given mild respiratory distress after delivery. Normal uterus, tubes and ovaries. ESTIMATED BLOOD LOSS: 600 mL. LIA ZACARIAS MD MT: LO Name: LEODAN MILLIGAN Account: [id number] : 1985 Procedure Date: 08/17/2017 Document: [id number] LESOFT PROGRAMMER Brief Op Note - Lia Zacarias MD - 08/17/2017 1:29 AM PEOPLESOFT PROGRAMMER [facility] Brief Operative Note Pre-operative diagnosis: 32yo at 40.2 with GDMA1 for induction of labor Arrest of descent with suspected CPD Post-operative diagnosis Same Confirmed LGA Procedure: Procedure(s): section - Wound Class: II-Clean Contaminated Surgeon(s): Surgeon(s) and Role: * Lia Zacarias MD - Primary Estimated blood loss: 600cc Specimens: Cord gases Findings: Liveborn female, weight 9#6oz, Apgars pending with NICU. admitted to NICU for mild respiratory distress. Lia Zacarias MD LESOFT PROGRAMMER Provider Notification - Yanira Pena RN - 08/17/2017 12:15 AM PEOPLESOFT PROGRAMMER 08/17/17 0015 Provider Notification Provider Name/Title Dr. Zacarias Method of Notification At Bedside MD talking with patient regarding possible need for C/S, possible risks and benefits. Will have consent ready to sign for patient in agreement. LESOFT PROGRAMMER Provider Notification - Yanira Pena, SARAH - 08/17/2017 12:00 AM PEOPLESOFT PROGRAMMER 08/17/17 0000 Provider Notification Provider Name/Title Dr. Zacarias Method of Notification At Bedside MD at bedside to evaluate pushing, FHTs. LESOFT PROGRAMMER Provider Notification - Yanira Pena RN - 08/16/2017 11:45 PM PEOPLESOFT PROGRAMMER 08/16/17 2345 Provider Notification Provider Name/Title Dr. Zacarias Method of Notification Phone MD called in to evaluate FHT rate, pushing. LESOFT PROGRAMMER Provider Notification - Yanira Pena RN - 08/16/2017 10:20 PM PEOPLESOFT PROGRAMMER 08/16/170 Provider Notification Provider Name/Title Dr. Zacarias Method of Notification Phone Request Evaluate - Remote Notification Reason Labor Status;Uterine Activity;Status Update;SVE MD updated that SVE as of 2149 is [...] and to call when needed for delivery. LESOFT PROGRAMMER Provider Notification - Katey Godwin RN - 08/16/2017 7:34 PM PEOPLESOFT PROGRAMMER 08/16/17 1932 Provider Notification Provider Name/Title Dr [...] will assume all cares at that time. LESOFT PROGRAMMER Provider Notification - Katey Godwin RN - 08/16/2017 4:54 PM PEOPLESOFT PROGRAMMER 08/16/17 1645 Provider Notification Provider Name/Title Dr Villar Method of Notification Phone Request Evaluate - Remote Notification Reason Status Update;SVE (Pitocin running at 1 abimael-unit) LESOFT PROGRAMMER Provider Notification - Katey Godwin RN - 08/16/2017 2:56 PM PEOPLESOFT PROGRAMMER 08/16/17 8536 Provider Notification Provider Name/Title Dr Villar Method of Notification Phone Request Evaluate - Remote Notification Reason SVE;Status Update MD updated of SVE no change. Pt now very uncomfortable, rates 6/10. Fentanyl given. IV flushing. OK for epidural at any time. Will continue to monitor and update as needed. LESOFT PROGRAMMER Plan of Care - Katey Godwin RN - 08/16/2017 1:06 PM CST Patient off monitors to ambulate hallways. Instructed to notify nurse if patient notices any significant changes in condition. LESOFT PROGRAMMER Provider Notification - Katey Godwin RN - 08/16/2017 12:26 PM PEOPLESOFT PROGRAMMER 08/16/17 1215 Provider Notification Provider Name/Title Dr Villar Method of Notification Phone Request Evaluate - Remote Notification Reason Patient Arrived;Status Update MD to come for AROM, intrapartum orders placed LESOFT PROGRAMMER Provider Notification - Yanira Pena, RN - 08/16/2017 8:30 AM PEOPLESOFT PROGRAMMER 08/16/172032 Provider Notification Provider Name/Title Dr. Zacarias Method of Notification Phone Request Evaluate - Remote Notification Reason Other (Comment) MD called to ask about a medication that she ordered with previous nurse. MD discontinued that Medication, and ordered po Prilosec 20 mg BID , start when patient's nausea after emesis feels better. Call MD with any questions or when needed. LESOFT PROGRAMMER documented in this encounter Plan of Treatment Not on filedocumented as of this encounter Procedures Procedure Name Priority Date/Time Associated Comments Diagnosis HEMOGLOBIN Routine 08/18/2017 7:05 AM Results f or this PEOPLESOFT PROGRAMMER procedure are i n the results section. GLUCOSE BY METER Routine 08/17/2017 6:35 AM Resul ts for this PEOPLESOFT PROGRAMMER procedure are i n the results section. SECTION 08/17/2017 12:20 section AM PEOPLESOFT PROGRAMMER GLUCOSE BY METER Routine 08/16/2017 10:35 Results for this PM PEOPLESOFT PROGRAMMER procedure are i n the results section. GLUCOSE BY METER Routine 08/16/2017 8:37 PM Resul ts for this PEOPLESOFT PROGRAMMER procedure are i n the results section. GLUCOSE BY METER Routine 08/16/2017 6:28 PM Resul ts for this PEOPLESOFT PROGRAMMER procedure are i n the results section. PROTEIN RANDOM URINE STAT 08/16/2017 5:30 PM R esults for this PEOPLESOFT PROGRAMMER procedure are i n the results section. CREATININE URINE Routine 08/16/2017 5:30 PM Resul ts for this CALCULATION ONLY (LAB PEOPLESOFT PROGRAMMER proced ure are in ONLY) the results section. GLUCOSE BY METER Routine 08/16/2017 5:14 PM Resul ts for this PEOPLESOFT PROGRAMMER procedure are i n the results section. CBC WITH PLATELETS & STAT 08/16/2017 11:45 Res ults for this DIFFERENTIAL AM PEOPLESOFT PROGRAMMER procedure are i n the results section. URIC ACID STAT 08/16/2017 11:45 Results for this AM PEOPLESOFT PROGRAMMER procedure are i n the results section. AST STAT 08/16/2017 11:45 Results for this AM PEOPLESOFT PROGRAMMER procedure are i n the results section. ANTI TREPONEMA STAT 08/16/2017 11:45 Results f or this AM PEOPLESOFT PROGRAMMER procedure are i n the results section. ALT STAT 08/16/2017 11:45 Results for this AM PEOPLESOFT PROGRAMMER procedure are i n the results section. ABO/RH TYPE AND STAT 08/16/2017 11:45 Results for this SCREEN AM PEOPLESOFT PROGRAMMER procedure are i n the results section. BASIC METABOLIC PANEL STAT 08/16/2017 11:45 Re sults for this AM PEOPLESOFT PROGRAMMER procedure are i n the results section. [...] encounter Results (ABNORMAL) Hemoglobin (08/18/2017 7:05 AM PEOPLESOFT PROGRAMMER) P athologist Signature Hemoglobin 10.5 (L) 11.7 - 15.7 08/18/2017 [place] g/dL 7:56 AM [facility] Specimen Anatomical Collection Method Collection Time Receive d Time (Source) Location / / Volume Laterality Blood specimen 08/18/2017 7:05 AM 018 7:06 (specimen) PEOPLESOFT PROGRAMMER AM PEOPLESOFT PROGRAMMER Lia Zacarias MD LAB - BLOOD ORDERABLES Performing Organization Address City/State/ZIP Code Phon e Number M [facility] [address], [place] [address] [facility] [address] [place], [place] [address] [phone] (ABNORMAL) Glucose by meter (08/17/2017 6:35 AM PEOPLESOFT PROGRAMMER) P athologist Signature Glucose 114 (H) 70 - 99 08/17/2017 POINT OF CARE mg/dL 6:40 AM PEOPLESOFT PROGRAMMER TEST, GLUCOSE Specimen Anatomical Collection Method Collection Time Receive d Time (Source) Location / / Volume Laterality 08/17/2017 6:35 AM 8 6:40 PEOPLESOFT PROGRAMMER AM PEOPLESOFT PROGRAMMER Lia ALBARADO - BEKEVIN POCT Performing Organization Address City/[facility]/ZIP Code Phon e Number [facility] POINT OF CARE TEST, GLUCOSE POINT OF CARE TEST, GLUCOSE Glucose by meter (08/16/2017 10:35 PM PEOPLESOFT PROGRAMMER) P athologist Signature Glucose 70 70 - 99 08/17/2017 POINT OF CARE mg/dL 1:15 AM PEOPLESOFT PROGRAMMER TEST, GLUCOSE Specimen Anatomical Collection Method Collection Time Receive d Time (Source) Location / / Volume Laterality 08/16/2017 10:35 08/17/2017 1:15 PM PEOPLESOFT PROGRAMMER AM PEOPLESOFT PROGRAMMER Marnie Villar MD LAB - BEKEVIN POCT Performing Organization Address City/[facility]/ZIP Code Phon e Number [facility] POINT OF CARE TEST, GLUCOSE POINT OF CARE TEST, GLUCOSE (ABNORMAL) Glucose by meter (08/16/2017 8:37 PM PEOPLESOFT PROGRAMMER) P athologist Signature Glucose 62 (L) 70 - 99 08/16/2017 POINT OF CARE mg/dL 8:40 PM PEOPLESOFT PROGRAMMER TEST, GLUCOSE Specimen Anatomical Collection Method Collection Time Receive d Time (Source) Location / / Volume Laterality 08/16/2017 8:37 PM 8 8:40 PEOPLESOFT PROGRAMMER PM PEOPLESOFT PROGRAMMER Marnie Villar MD LAB - JAMAAL POCT Performing Organization Address City/[facility]/ZIP Code Phon e Number [facility] POINT OF CARE TEST, GLUCOSE POINT OF CARE TEST, GLUCOSE Glucose by meter (08/16/2017 6:28 PM PEOPLESOFT PROGRAMMER) P athologist Signature Glucose 71 70 - 99 08/16/2017 POINT OF CARE mg/dL 6:30 PM PEOPLESOFT PROGRAMMER TEST, GLUCOSE Specimen Anatomical Collection Method Collection Time Receive d Time (Source) Location / / Volume Laterality 08/16/2017 6:28 PM 8 6:30 PEOPLESOFT PROGRAMMER PM PEOPLESOFT PROGRAMMER Marnie Vilalr MD LAB - BEAKER POCT Performing Organization Address City/State/ZIP Code Phon e Number [facility] POINT OF CARE TEST, GLUCOSE POINT OF CARE TEST, GLUCOSE Creatinine urine calculation only (08/16/2017 5:30 PM PEOPLESOFT PROGRAMMER) P athologist Signature Creatinine 142 mg/dL 08/16/2017 [place] Urine 6:36 PM [facility] Specimen Anatomical Collection Method Collection Time Receive d Time (Source) Location / / Volume Laterality 08/16/2017 5:30 PM 8 6:10 PEOPLESOFT PROGRAMMER PM PEOPLESOFT PROGRAMMER Marnie Villar MD LAB - URINE ORDERABLES Performing Organization Address City/State/ZIP Code Phon e Number M [facility] [address] [place] [address] [facility] [address] [place] [address], [place] [phone] (ABNORMAL) Protein random urine with Creat Ratio (08/16/2017 5:30 PM PEOPLESOFT PROGRAMMER) Analysis Performed At Patho logist Time Signature Protein Random 0.32 g/L 08/16/2017 [place] Urine 6:36 PM [facility] Protein Total 0.22 (H) 0 - 0.2 08/16/2017 [place] Urine g/gr g/g Cr 6:36 PM [facility] Specimen Anatomical Collection Method Collection Time Receive d Time (Source) Location / / Volume Laterality Urine specimen URINE SPECIMEN 08/16/2017 5:30 PM 08/16 6:10 (specimen) OBTAINED BY CLEAN PEOPLESOFT PROGRAMMER PM PEOPLESOFT PROGRAMMER CATCH PROCEDURE / Unknown Marnie Villar MD LAB - URINE ORDERABLES Performing Organization Address City/State/ZIP Code Phon e Number M [facility] [address] [place] [address] [facility] [address] [place] [address], [place] [phone] (ABNORMAL) Glucose by meter (08/16/2017 5:14 PM PEOPLESOFT PROGRAMMER) P athologist Signature Glucose 69 (L) 70 - 99 08/16/2017 POINT OF CARE mg/dL 5:21 PM PEOPLESOFT PROGRAMMER TEST, GLUCOSE Specimen Anatomical Collection Method Collection Time Receive d Time (Source) Location / / Volume Laterality 08/16/2017 5:14 PM 8 5:21 PEOPLESOFT PROGRAMMER PM PEOPLESOFT PROGRAMMER Marnie Villar MD LAB - BEAKER POCT Performing Organization Address City/State/ZIP Code Phon e Number [facility] POINT OF CARE TEST, GLUCOSE POINT OF CARE TEST, GLUCOSE Uric acid (08/16/2017 11:45 AM PEOPLESOFT PROGRAMMER) athologist Signature Uric Acid 5.8 2.6 - 6.0 08/16/2017 [facility] mg/dL 12:40 PM [facility] Specimen Anatomical Collection Method Collection Time Receive d Time (Source) Location / / Volume Laterality Blood specimen 08/16/2017 11:45 8 (specimen) AM PEOPLESOFT PROGRAMMER 12:18 PM PEOPLESOFT PROGRAMMER Marnie Villar MD LAB - BLOOD ORDERABLES Performing Organization Address City/[facility]/ZIP [facility] Phon e Number M [place] [address] [phone] [facility] [address] [phone] (ABNORMAL) Basic metabolic panel (08/16/2017 11:45 AM PEOPLESOFT PROGRAMMER) athologist Signature Sodium 138 133 - 144 08/16/2017 [place] mmol/L 12:40 PM [facility] Potassium 4.1 3.4 - 5.3 08/16/2017 [facility] mmol/L 12:40 PM [facility] Chloride 106 94 - 109 08/16/2017 [facility] mmol/L 12:40 PM [facility] Carbon Dioxide 23 20 - 32 08/16/2017 [facility] mmol/L 12:40 PM [facility] Anion Gap 9 3 - 14 08/16/2017 [facility] mmol/L 12:40 PM [facility] Glucose 64 (L) 70 - 99 08/16/2017 [facility] mg/dL 12:40 PM [facility] Urea Nitrogen 12 7 - 30 08/16/2017 [place] mg/dL 12:40 PM [facility] Creatinine 0.79 0.52 - 08/16/2017 [place] 1.04 mg/dL 12:40 PM [facility] GFR Estimate 85 >60 08/16/2017 [place] mL/min/1.7 12:[address] Comment: Non GFR Calc GFR Estimate If >90 >60 mL/min/1.7m2 08/16/2017 12:40 PM [facility] Comment: GFR Calc Calcium 8.6 8.5 - 10.1 mg/dL 08/16/2017 12:[address] [facility] Specimen Anatomical Collection Method Collection Time Receive d Time (Source) Location / / Volume Laterality Blood specimen 08/16/2017 11:45 8 (specimen) AM PEOPLESOFT PROGRAMMER 12:18 PM PEOPLESOFT PROGRAMMER Marnie Villar MD LAB - BLOOD ORDERABLES Performing Organization Address City/State/ZIP Code Phon e Neri [facility] [address], [place] [address] [place] [address] [address], [place] [address], [facility] [phone] ALT (08/16/2017 11:45 AM PEOPLESOFT PROGRAMMER) P athologist Signature ALT 13 0 - 50 U/L 08/16/2017 [facility] 12:40 PM [facility] Specimen Anatomical Collection Method Collection Time Receive d Time (Source) Location / / Volume Laterality Blood specimen 08/16/2017 11:45 8 (specimen) AM PEOPLESOFT PROGRAMMER 12:18 PM PEOPLESOFT PROGRAMMER Marnie Villar MD LAB - BLOOD ORDERABLES Performing Organization Address City/State/ZIP Code Phon e Neri [facility] [address], [place] [address] [place] [address] [address] [place] [id number], [facility] [phone] AST (08/16/2017 11:45 AM PEOPLESOFT PROGRAMMER) P athologist Signature AST 21 0 - 45 U/L 08/16/2017 [facility] 12:40 PM [facility] Specimen Anatomical Collection Method Collection Time Receive d Time (Source) Location / / Volume Laterality Blood specimen 08/16/2017 11:45 01/19/201 8 (specimen) AM PEOPLESOFT PROGRAMMER 12:18 PM PEOPLESOFT PROGRAMMER Marnie Villar MD LAB - BLOOD ORDERABLES Performing Organization Address City/[facility]/ZIP Code Phon malia [facility]ilar [facility] [address], [place] [address] [facility] [address], [place] [address] 7, [facility] [phone] ABO/Rh type and screen (08/16/2017 11:45 AM PEOPLESOFT PROGRAMMER) [facility] Method Time Signature ABO A 08/16/2017 [facility] 1:02 PM [facility] RH(D) Pos [facility] Antibody Neg 08/16/2017 [place] Screen 1:02 PM [facility] Test Valid [place] 08/16/2017 [facility] Only At [facility] 12:53 PM [facility] Specimen 08/19/2017 08/16/2017 [facility] Expires 12:53 PM [facility] Specimen Anatomical Collection Method Collection Time Receive d Time (Source) Location / / Volume Laterality Blood specimen 08/16/2017 11:45 8 (specimen) AM [employer]OPLESOFT PROGRAMMER 12:18 PM PEOPLESOFT PROGRAMMER Marnie Villar MD LAB - BLOOD BANK TEST ORDER Performing Organization Address City/[facility]/ZIP [facility] [place] malia Aguilar [facility] [address], [place] [address] [facility] [address], [place] [address], [facility] [phone] CBC with platelets differential (08/16/2017 11:45 AM PEOPLESOFT PROGRAMMER) [facility] Method Time Signature WBC 8.7 4.0 - 08/16/2017 [facility] 11.0 12:24 PM [facility] 10e9/L [facility] RBC Count 5.07 3.8 - 5.2 08/16/2017 [facility] 10e12/L 12:24 PM [facility] Hemoglobin 13.7 11.7 - 08/16/2017 [facility] 15.7 g/dL 12:24 PM [facility] Hematocrit 43.3 35.0 - 08/16/2017 [facility] 47.0 % 12:24 PM [facility] MCV 85 78 - 100 08/16/2017 [facility] fl 12:24 PM [facility] MCH 27.0 26.5 - 08/16/2017 [facility] 33.0 pg 12:24 PM [facility] MCHC 31.6 31.5 - 08/16/2017 [facility] 36.5 g/dL 12:24 [facility] RDW 14.4 10.0 - 08/16/2017 [facility] 15.0 % 12:24 PM [facility] Platelet Count 272 150 - 450 08/16/2017 [facility] 10e9/L 12:24 [facility] Diff Method Automated 08/16/2017 [facility] Method 12:24 PM [facility] % Neutrophils 70.6 % 08/16/2017 [facility] 12:24 PM [facility] % Lymphocytes 19.1 % 08/16/2017 [facility] 12:24 PM [facility] % Monocytes 8.1 % 08/16/2017 [facility] 12:24 PM [facility] % Eosinophils 1.3 % 08/16/2017 [facility] 12:24 PM [facility] % Basophils 0.3 % 08/16/2017 [facility] 12:24 PM [facility] % Immature 0.6 % 08/16/2017 [facility] Granulocytes 12:24 PM [facility] Nucleated RBCs 0 0 /100 08/16/2017 [facility] 12:24 PM [facility] Absolute 6.1 1.6 - 8.3 08/16/2017 [facility] Neutrophil 10e9/L 12:24 PM [facility] Absolute 1.7 0.8 - 5.3 08/16/2017 [facility] Lymphocytes 10e9/L 12:24 PM [facility] Absolute 0.7 0.0 - 1.3 08/16/2017 [facility] Monocytes 10e9/L 12:24 PM [facility] Absolute 0.1 0.0 - 0.7 08/16/2017 [facility] Eosinophils 10e9/L 12:24 PM [facility] Absolute 0.0 0.0 - 0.2 08/16/2017 [facility] Basophils 10e9/L 12:24 [facility] Abs Immature 0.1 0 - 0.4 08/16/2017 [facility] Granulocytes 10e9/L 12:24 PM [facility] Absolute 0.0 08/16/2017 [facility] Nucleated RBC 12:24 PM [facility] Specimen Anatomical Collection Method Collection Time Receive d Time (Source) Location / / Volume Laterality Blood specimen 08/16/2017 11:45 8 (specimen) AM [employer]LESOFT PROGRAMMER 12:19 PM PEOPLESOFT PROGRAMMER Marnie Villar MD LAB - BLOOD ORDERABLES Performing Organization Address City/State/ZIP Code Phon e Number [place] [address], [place] [address] [facility] [address], [place] [address] [phone] Anti Treponema (08/16/2017 11:45 AM PEOPLESOFT PROGRAMMER) Analysis Performed At Patho logist Time Signature Treponema Negative NEG^Negati 08/17/2017 [facility] 10:36 AM [facility] Specimen Anatomical Collection Method Collection Time Receive d Time (Source) Location / / Volume Laterality Blood specimen 08/16/2017 11:45 8 (specimen) AM [employer]OPLESOFT PROGRAMMER 12:19 PM PEOPLESOFT PROGRAMMER Marnie Villar MD LAB - BLOOD ORDERABLES Performing Organization Address City/State/ZIP Code Phon e Number [address] [address] [facility] Group B strep PCR (07/17/2017) athologist Signature [...] - BLOOD ORDERABLES Neisseria gonorrhoeae PCR (01/25/2017) athologist Signature N Gonorrhea Negative PCR Patient Reported LAB - MICRO GENERAL ORDERABL ES Hepatitis B surface antigen (01/25/2017) athologist Signature Hep B Surface Negative Agn Specimen (Source) Anatomical Location Collection Method / Collectio n Time Received Time / Laterality Volume Blood specimen (specimen) Patient Reported LAB - BLOOD ORDERABLES Chlamydia trachomatis PCR (01/25/2017) [facility] Method Time Signature Chlamydia Negative Trachomatis PCR Patient Reported LAB - MICRO GENERAL ORDERABL ES Anti Treponema (01/25/2017) [facility] gist Method Time Signature Treponema Non Reactive pallidum Antibody Specimen (Source) Anatomical Location Collection Method / Collectio n Time Received Time / Laterality Volume Blood specimen (specimen) Patient Reported LAB - BLOOD ORDERABLES documented in this encounter Visit Diagnoses Diagnosis delivery delivered - Primary delivery, without mention of in dication, delivered, with or without mention of antepartum condition Indication for care in labor or delivery Unspecified indication for care or inter vention related to labor and delivery, unspecified as to episode of care documented in this encounter Administered Medications Inactive Administered Medications - up to 3 most recent administrations Medication Order MAR Action Action Date Dose Rate Site acetaminophen (TYLENOL) tablet 650 Given 08/20/2017 8:42 AM PEOPLESOFT PROGRAMMER 650 mg mg 650 mg, Oral, EVERY 4 HOURS PRN, other, multimodal surgical pain management along with NSAIDS and opioid medication as indicated based on pain control and physical function., Starting on Sat08/20/17 at 0000, May give first dose 4 hours after last scheduled dose of acetaminophen Maximum acetaminophen dose from all sources = 75 mg/kg/day not to exceed 4 grams/day., Post-procedure acetaminophen (TYLENOL) tablet 975 mg Given 08/19/2017 10:40 PM PEOPLESOFT PROGRAMMER 975 mg 975 mg, Oral, EVERY 8 HOURS, First dose on 08/17/17 at 0200, For 3 days, Do not use if patient has an active opioid/acetaminophen combined analgesic product ordered for pain. Maximum acetaminophen dose from all sources = 75 mg/kg/day not to exceed 4 grams/day., Post-procedure Given 08/19/2017 2:36 PM PEOPLESOFT PROGRAMMER 975 mg Given 08/19/2017 6:39 AM PEOPLESOFT PROGRAMMER 975 mg bisacodyl (DULCOLAX) Suppository 10 mg 10 mg, Rectal, DAILY PRN, constipation, Starting on 08/19/17 at 0000, Start POD 2, Post-procedure BUPivacaine (MARCAINE) 0.125% in New Bag 08/16/2017 3:59 PM CS T 15 mL/hr 15 mL/hr NaCl 0.9% 250 mL EPIDURAL infusion at 15 mL/hr, EPIDURAL, CONTINUOUS, Absolutely no anticoagulants, thrombolytics or antiplatelet medications or other opioid analgesics or other sedatives without prior notification of anesthesiology. For CADD cassettes, pharmacy to send epidural tubing set Ref # [id number] (5.1mL)., Starting on Sat08/16/17 at 1500, Until 08/17/17 at 0530 calcium carbonate (TUMS) chewable tablet 500 Given 5:55 PM PEOPLESOFT PROGRAMMER 500 mg mg 500 mg, Oral, DAILY PRN, heartburn, Starting on Sat08/16/17 at 1750 carboprost (HEMABATE) injection 250 mcg 250 mcg, Intramuscular, ONCE PRN, postpa rtum hemorrhage, Starting on 08/17/17 at 0153, For 1 dose, Start IF HEMORRHAGE, Post -procedure clindamycin (CLEOCIN) infusion 900 New Bag 08/18/2017 8:24 AM PEOPLESOFT PROGRAMMER 900 mg 50 mL/hr mg STAT, 900 mg, Intravenous, EVERY 8 HOURS, First dose on 08/17/17 at 0600, This medication is not recommended if patient is . Inform patient/minimize use. , Indications: Possible Chorioamnitis during Labor New Bag 08/17/2017 11:23 PM PEOPLESOFT PROGRAMMER 900 mg 50 mL/hr New Bag 08/17/2017 4:18 PM PEOPLESOFT PROGRAMMER 900 mg 50 mL/hr dextrose 5% in lactated ringers New Bag 08/17/2017 10:58 AM PEOPLESOFT PROGRAMMER 125 mL/hr infusion at 125 mL/hr, Intravenous, [...] of 1 minute. Extend in non-emergency, Post-procedure fentaNYL (PF) (SUBLIMAZE) injection 50-100 Given 08/16/2017 2:44 PM PEOPLESOFT PROGRAMMER 100 mcg mcg 50-100 mcg, Intravenous, EVERY 1 HOUR PRN, other, desired pain relief based on labor coping/body mass index/labor assessment., Starting on 08/16/17 at 1211, Start at the lowest dose or may give higher initial dose if labor coping/assessment warrants or as directed by provider. May adjust subsequent doses as needed for pain control based on patient response to first dose or labor coping. Hold dose for analgesic side effects. Notify provider to assess for uncontrolled pain or analgesic side effects. For ordered doses up to 100 mcg give IV Push undiluted over a minimum of 3-5 minutes. gentamicin (GARAMYCIN) 140 mg in New Bag 08/18/2017 1:00 AM PEOPLESOFT PROGRAMMER 14 0 mg 50 mL/hr NaCl 0.9 % 50 mL intermittent infusion Routine, 140 mg (rounded from 132.4 mg = 2 mg/kg ? 66.2 kg Adjusted weight), Intravenous, EVERY 8 HOURS, First dose on 08/17/17 at 0700, Indications: possible chorioamnionitis New Bag 08/17/2017 2:33 PM PEOPLESOFT PROGRAMMER 140 mg New Bag 08/17/2017 6:31 AM PEOPLESOFT PROGRAMMER 140 mg glucagon injection 1 mg 1 mg, Subcutaneous, [...] Document juice on I and O fl felicia. hydrocortisone 2.5 % cream Rectal, 3 TIMES DAILY PRN, hemorrhoids, Starting on 08/17/17 at 0153, Apply to hemorrhoids. Send only if nurse requests., Post-proced ure HYDROmorphone (PF) (DILAUDID) injection 0.3-0.5 mg 0.3-0.5 mg, Intravenous, EVERY 30 MIN AR N, severe pain, Starting on 08/17/17 at 0153, Offer at least every 2 hours. Notify provider fo r new orders if agent ineffective. Hold while on S[employer]. For ordered doses up t o 4 [...] tablet 800 mg Given 08/20/2017 8:42 AM PEOPLESOFT PROGRAMMER 800 mg 800 mg, Oral, EVERY 6 HOURS PRN, cramping, Starting on 08/18/17 at 0400, Max dose: 3200 mg/day., Post-procedure Given 08/19/2017 10:40 PM PEOPLESOFT PROGRAMMER 800 mg Given 08/19/2017 4:34 PM PEOPLESOFT PROGRAMMER 800 mg ketorolac (TORADOL) injection 30 mg Given 08/18/2017 12:59 AM PEOPLESOFT PROGRAMMER 30 mg 30 mg, Intravenous, EVERY 6 HOURS, First dose on 08/17/17 at 0415, For 24 hours, Give first dose in PACU (alright to give with narcotic analgesic if ordered) X 24 hours For ordered doses up to 30 mg, give IV Push undiluted over 2 minutes., Post-procedure Given 08/17/2017 4:18 PM PEOPLESOFT PROGRAMMER 30 mg Given 08/17/2017 10:05 AM PEOPLESOFT PROGRAMMER 30 mg lactated ringers BOLUS 1,000 mL Intravenous, 1,000 mL, ONCE PRN, post pa rtum hemorrhage, Starting on 08/17/17 at 0153, For 1 dose, Rate: 500-1000 mL/hr. Start IF POSTP ARTUM HEMORRHAGE, Post-procedure lactated ringers infusion New Bag 08/16/2017 11:13 PM PEOPLESOFT PROGRAMMER 125 mL/hr at 125 mL/hr, Intravenous, CONTINUOUS, Starting on Sat08/16/17 at 1215, Until 08/17/17 at 0530 New Bag 08/16/2017 3:58 PM PEOPLESOFT PROGRAMMER 125 mL/hr New Bag 08/16/2017 3:00 PM PEOPLESOFT PROGRAMMER 999 mL/hr lanolin ointment Topical, EVERY 1 HOUR PRN, [...] capsule 20 mg Given 08/16/2017 9:43 PM PEOPLESOFT PROGRAMMER 20 mg 20 mg, Oral, 2 TIMES DAILY, First dose on Sat08/16/17 at 2115 ondansetron (ZOFRAN) injection 4 mg Given 08/17/2017 12:33 AM PEOPLESOFT PROGRAMMER 4 mg 4 mg, Intravenous, EVERY 6 HOURS PRN, nausea, vomiting, Administer over 2-5 Minutes, Starting on Sat08/16/17 at 1207, If nausea not resolved in 15 minutes, notify provider before proceeding to prochlorperazine (COMPAZINE) [if ordered]. Irritant. For ordered doses up to 4 mg, give IV Push undiluted over 2-5 minutes. Given 08/16/2017 11:44 PM PEOPLESOFT PROGRAMMER 4 mg ondansetron (ZOFRAN) injection 4 mg 4 mg, [...] analgesic side effe cts. Hold while on [employer] or with regular IV opioid dosing. Maximum t otal is 80 mg in 24 hours., Post-procedure oxytocin (PITOCIN) 30 Rate/Dose 08/16/2017 11:23 0.5 micho[place]ano-units/min 0.5 mL/hr units in 500 mL 0.9% Change PM PEOPLESOFT PROGRAMMER NaCl infusion 1-24 michoacano-units/min (1-24 mL/hr), Intravenous, CONTINUOUS, Starting on Sat08/16/17 at 1615, Start infusion at 2 michoacano-units/min. Increase by 1-2 mill-iunits/min every 30 minutes as clinically indicated until contractions are 2-3 minutes apart, lasting 45 to 60 seconds in duration to achieve labor progress. Max rate is 24 milliunits/min. Do NOT go higher without a provider order. If oxytocin (PITOCIN) infusion is discontinued and off for less than 30 minutes, restart infusion at half of previous oxytocin (PITOCIN) rate. If oxytocin (PITOCIN) infusion has been discontinued equal to or greater than 30 minutes, begin at initial dose. IF another cervical ripening medication is ordered wait 60 minutes after oxytocin (PITOCIN) infusion is stopped before administering cervical ripening medication. New Bag 08/16/2017 4:12 PM PEOPLESOFT PROGRAMMER 1 michoacano-units/min 1 mL/hr oxytocin (PITOCIN) 30 units in New Bag 08/17/2017 3:03 AM PEOPLESOFT PROGRAMMER 100 mL/hr 100 mL/hr 500 mL 0.9% [...] Post-procedure senna-docusate (SENOKOT-S;PERICOLACE) Given 08/19/2017 10:40 PM PEOPLESOFT PROGRAMMER 1 tablet 8.6-50 MG per tablet 1 tablet 1 tablet, Oral, 2 TIMES DAILY PRN, constipation, Starting on 08/17/17 at 0153, If no bowel movement in 24 hours, increase to 2 tablets PO. Hold for loose stools. Preferred agent for constipation related to opioids., Post-procedure Given 08/18/2017 8:24 AM PEOPLESOFT PROGRAMMER 1 tablet senna-docusate (SENOKOT-S;PERICOLACE) Given 08/20/2017 8:[address] 2 tablets 8.6-50 MG per tablet 2 tablet 2 tablet, Oral, 2 TIMES DAILY PRN, constipation, Starting on 08/17/17 at 0153, Hold for loose stools. Preferred agent for constipation related to opioids., Post-procedure Given 08/19/2017 8:40 AM PEOPLESOFT PROGRAMMER 2 tablets Given 08/18/2017 10:32 PM PEOPLESOFT PROGRAMMER 2 tablets simethicone (MYLICON) chewable tablet 80 mg 80 mg, Oral, 4 TIMES DAILY PRN, other, g as, Starting on 08/17/17 at 0153, Chew., Post-procedure sodium citrate-citric acid (BICITRA) solution Given 7:45 PM PEOPLESOFT PROGRAMMER 30 mLs 30 mL 30 mL, Oral, ONCE, On Sat08/16/17 at 1945, For 1 dose sodium citrate-citric acid (BICITRA) Given 08/17/2017 12:[address] 30 mLs solution 30 mL 30 mL, Oral, PRE-OP/PRE-PROCEDURE, Starting on 08/17/17 at 0016, For 1 dose, For gastric pH neutralization. GIVE WITHIN 45 minutes PRIOR TO SURGICAL PROCEDURE., Pre-procedure sodium phosphate (FLEET ENEMA) 1 enema 1 enema, Rectal, DAILY PRN, constipation , , Starting on 08/19/17 at 0000, Use if bisacodyl not effective. Start POD 2., Post-procedure documented in this encounter Active and Recently Administered Medications Times are shown in PEOPLESOFT PROGRAMMER. Scheduled Medication Order 08/18/2017 08/19/2017 08/20/2017 acetaminophen [...] ost-procedure clindamycin (CLEOCIN) infusion 900 mg (CANCELED) 0824 (New Bag - Provider: Lucia Pratt RN) STAT, 900 mg, Intravenous, EVERY 8 HOURS , First dose on 08/17/17 at 0600, This medication is not recommended if patient is . Inform patient/minimize use. , Indications: Possible Chorioamnitis during Labor gentamicin (GARAMYCIN) 140 mg in NaCl 0. 9 % 50 mL intermittent infusion (CANCELED) 0100 (New Bag - Provider: Parris Medrano RN) Routine, 140 mg (rounded from 132.4 mg = 2 mg/kg ? 66.2 kg Adjusted weight), Intravenous, EVERY 8 HOURS, First dose on 08/17/17 at 0700, Indications: possible chorioamnionitis ketorolac (TORADOL) injection 30 mg (COMPLETED) 0059 ( Given - Provider: Parris Medrano, SARAH) 30 mg, Intravenous, EVERY 6 HOURS, First [...] Oral, 2 TIMES DAILY, First dose on 08/16/17 at 2115 Tdap (dpwavgo-duvfthwotq-khpjg pertussis) (ADACEL) inj ection 0.5 mL 1354 [...] response and passive antibody transfer to the infant, optimal timing is between 27 and 36 [...] 3 TIMES DAILY PRN, hemorrhoids, Starting on 1/20/18 at 0153, Apply to hemorrhoids. Send only if nurse requests., Post-procedure HYDROmorphone (PF) (DILAUDID) injection 0.3-0.5 mg 0.3-0.5 mg, Intravenous, EVERY 30 MIN AR N, severe pain, Starting on 08/17/17 at 0153, Offer at least every 2 hours. Notify provider for new orders if agent ineffective. Hold while on [employer]. For ordered doses up to 4 mg [...] Group 3) 0737 (Given - Provider: Parris Medrano, RN)1427 (Given - Provider: Lucia Pratt RN)2236 (Given - Provider: Dania Vargas RN) 0435 (Given - Provider: Parris Medrano RN)1034 (Given - Provider: Mary Jane Welsh, RN)1634 (Given - Provider: Yane Holden, SARAH)2240 (Given - Provider: Silva Mabry LPN) 0842 [...] or analgesic side effects. Hold while on [employer] or with regular IV opioid dosing. Maximum [...] MG per tablet 1 tablet(Linked Group 4) 7029 (Given - Provider: Lucia Pratt RN)2231 (See Alternative - Provider: Dania Vargas RN) 0840 (See Alternative - Provider: Mary Jane Welsh, SARAH)2240 (Given - Provider: Silva Mabry LPN) 0842 [...] 0840 (Given - Provider: Mary Jane Welsh RN)2240 (See Alternative - Provider: Silva Mabry [...]
Post-procedure documented in this encounter Care Teams Round Up Ring Hand Relationship Specialty Start Date End Date Leela Ruano MD PCP - General [facility] 08/06/17 [facility] [id number] [address] [place] [id number] documented as of this encounter
--- OUTSIDE RECORDS SUMMARY | 2022-03-08 12:42 | XMS_ITS | Clinical Summary ---
:1985 Author Organization [facility] Address [address] [place] [address] Care Team Providers Name Role Phone Leela Ruano MD Primary Care Provider Source Comments You are receiving this document as you are listed as the primary care provider,follow-up provider, or the patient has been referred to you for consultation.This is in compliance with the Medicare and Medicaid EHR Incentive Program,which states Providers who transition their patient to another setting of careor provider of care or refers their patient to another provider of care shouldprovide summarycare record for each transition of care or referral. Breeze Allergies Active Allergy Reactions Severity Noted Date Comments Penicillins Medium 06/02/2003 PN: Lip swellin g Medications No known medications Active Problems Problem Noted Date Tension headache 11/28/2003 Overview: LW Onset: [id number] ; Headache Tension [place] Comments Yes Resolved Problems Problem Noted Date Resolved Date Other acne 06/04/2003 10/17/2004 Overview: LW Onset: [id number] ; Acne Vulgaris Encounters Date Type Specialty Care Team Description 01/12/2022 Orders Only ProviderCrystal MD 12/19/2021 Telephone Endocrinology Emma Branham MD LAB RESUL TS 12/13/2021 Telephone Endocrinology Emma Branham MD LAB RESUL TS 12/06/2021 Telemedicine Endocrinology Emma Branham MD Low TSH l evel (Primary Dx) 12/06/2021 Telephone Endocrinology Emma Branham MD Orders Ne eded from Last 3 Months Immunizations Name Administration Dates Next Due DTP 12/17/1990, 10/18/1986, 01/20/1986, 1985, 1985 H1n1 Miv Sanofi 3+ Yr (Injected) 08/23/2009 HepA Adult (19+ yrs) 06/21/2000 HepB Adult (Engerix-B, 20+ yrs, 3 02/28/2000 dose series) HepB Ped/Adol (0-18 yrs) 06/02/2003 MMR 09/20/1997, 10/18/1986 OPV, Trivalent (Orimune or tOPV) 12/17/1990, 10/18/1986, , 1985, 1985 TDAP (ADACEL) 09/04/2007 Td 09/20/1997 Family History Relation Name Status Comments Father Alive Mother Alive Social History Tobacco Use Types Packs/Day Years [...] Alcoholic Drinks/day: Amount:1-2 016 drinks; Freq:2-3/week ; Comments Yes Sex Assigned at Date Recorded Not on file Last Filed Vital Signs Vital Sign Reading Time Taken Comments Blood Pressure 112/70 01/04/2017 2:59 PM CDT Pulse 79 01/04/2017 2:59 PM CDT Temperature 37 ??C (98.6 ??F) 01/04/2017 2:59 PM CDT Respiratory Rate 16 01/04/2017 2:59 PM CDT Oxygen Saturation 97% 01/04/2017 2:59 PM CDT Inhaled Oxygen Concentration - - Weight 64.6 kg (142 lb 6.4 oz) 12/19/2016 3:48 PM CDT Height 165.1 cm (5' 5) 09/12/2015 3:36 PM BUSINESS DEVELOPMENT MANAGER Body Mass Index 23.7 09/12/2015 3:36 PM BUSINESS DEVELOPMENT MANAGER Plan of Treatment Health Maintenance Due Date Last Done Comments Hep C Screening (Preventive 1985 Services) COVID-19 Vaccine (#1) 01/19/1986 HepA (2 of 2 - Risk 2-dose 12/19/2000 06/21/2000 series) HIV Screening (Preventive 2001 Services) Adult Preventive Visit 2003 HepB (3) 10/01/2003 06/02/2003, 02/28/2000 Pap 09/12/2018 09/12/2015, 01/06/2009, 09/04/2007, Additional history exists Influenza (#1) 2022 09/13/2021, 05/29/2017 DTaP/Tdap/Td (8 - Tdap) 05/29/2027 05/29/2017, 09/04/2007, 09/20/1997, Additional history exists Zoster/Shingles (1 of 2) 2035 IPV (Polio) Completed 12/17/1990, 10/18/1986, 01/20/1986, Additional history exists HPV Vaccine Aged Out No longer eligib le based on patient 's age to complete this topic Hib Aged Out No longer eligib le based on patient 's age to complete this topic MCV4 Aged Out No longer eligib le based on patient 's age to complete this topic Pneumococcal Aged Out No longer eligib le based on patient 's age to complete this topic Procedures Procedure Name Priority Date/Time Associated Diagnosis Comme nts LABORATORY REPORT 01/12/2022 Results fo r this procedure are in the resu lts section. from Last 3 Months Results LABORATORY REPORT (01/12/2022) Narrative This result has an attachment that is no t available. Interface Provider MD GARZA/OTHER/AR from Last 3 Months Insurance Payer Benefit Plan Subscriber ID Effective Dates Phone Address Type / Group ADAM MEDINA [id number] [employer] [phone] [employer] ernment t 87 CLAIMS [address] [address] [place] [address] BCBS BCBS CCS BLUE [id number] 2021[employer] [address] [address] [place] [address] Care Teams Drafter Civil (Cad) Relationship Specialty Start Date End Date Leela Ruano MD PCP - General 10/31/10 [id number] [place] [id number]
--- OUTSIDE RECORDS SUMMARY | 2022-03-08 12:42 | XMS_ITS | Encounter Summary ---
:1985 Author Organization [place] Address [address] [facility] [place] [address] Care Team Providers Name Role Phone Leela Ruano MD Primary Care Provider Reason for Visit Auth/Cert Specialty Diagnoses / Procedures Referred By Contact Refer red To Contact coil cutter Diagnoses Rh Labor And Delivery Procedures LABOR AND DELIVERY [address], [place] [address] Phone: Fax: Referral ID Status Reason Start Date Expiration Date Visits Requ ested Visits Authorized [id number] 1 1 Encounter Details Date Type Department Care Team Description 08/17/2017 Anesthesia Event [facility] Martin [address] [place] [address] ANESTHESIA [id number] [place], [place] [address] (Wo rk) Anesthesia Record Procedure Summary Procedure Name Responsible Anesthesia Start Anesthesia Stop Time Anesthesiologist Time section Jax Winters MD 08/17/17 0026 8 0130 (N/A Abdomen) Events Date Time Event Comment 08/17/2017 0026 An Start 0030 An Start Data 0031 An Induction 0031 MD Present 0035 MD Present 0035 MD Present 0042 MD Present 0043 MD Present 0044 MD Present 0046 MD Present 0046 MD Present 0050 Uterine Incision 0051 Present 0052 Baby Delivered 0052 MD Present 0053 Placenta Delivered 0100 MD Present 0106 Present 0114 MD Present 0117 Present 0117 an stop data 0130 An Stop Electronically s igned by Stefanie Marie on August 17, 2017 1:30 AM Name Total midazolam 1mg/mL 1 mg dexamethasone 4mg/mL 4 mg lidocaine 2% with EPINEPHrine 1:200,000 15 mL ondansetron (ZOFRAN) injection 4 mg 4 mg ceFAZolin (ANCEF) 1 g vial to attach to NS 100 ml bag for ADULT or 50 ml bag 2 g for PEDS azithromycin (ZITHROMAX) 500 mg in NaCl 0.9 % 250 mL i ntermittent infusion 500 mg oxytocin (PITOCIN) 30 units in 500 mL 0.9% NaCl infusi on 400 mL methylergonovine (METHERGINE) injection 200 mcg 200 mc g morphine (PF) (ASTRAMORPH /DURAMORPH) injection 4 mg 4 mg lactated ringers infusion 1,000 mL Agents Name NO HELIOX O2 N2O Air Exp Sevoflurane Exp Isoflurane Exp Desflurane Exp N2O Ins Sevoflurane Ins Isoflurane Ins Desflurane O2 Auxiliary Blood No blood administrations on file. Lines, Drains, and Airways Type Details Placement Removal Intrathecal/Epidural Epidural; kb; Tip 08/16/17 1605 by 08/17/17 0119 by Catheter intact Taran Marie APRN LAW FIRM PARTNER Peripheral IV 08/16/17; 1145; 18 G; 08/16/17 1145 by 08/18/17 0925 by Left; Hand; Terence Godwin Emily J, RN Chlorhexidine; None; SARAH Del Toro Tolerated well Urethral Catheter 08/17/17; 0030; Yes; 08/17/17 0030 by 08/17/17 1131 by Epidural/Intrathecal Mushtaq Pena Na talie, RN Catheter SARAH Doyle documented in this encounter Social History Tobacco Use Types Packs/Day Years Used Date Former Smoker Smokeless Tobacco: Never Used Alcohol Use Standard Drinks/Week Comments No 0 (1 standard drink = 0.6 oz pure alcoho l) Sex Assigned at Date Recorded Female 08/03/2021 2:35 PM VIDEO PLAYER MECHANIC documented as of this encounter OR Notes Anesthesia Postprocedure Evaluation - Jax Winters MD - 08/17/2017 1:33 AM CST Patient: Cassidy Thompson Procedure(s): section - Wound Class: II-Clean Contaminated Diagnosis: section Diagnosis Additional Information: Arrest of descent with suspected CPD Anesthesia Type: No value filed. Note: Anesthesia Post Evaluation Patient location during evaluation: Bedside Patient participation: Able to participate in evaluation but full recovery from regional anesthesia has not yet ocurrred but is anticipated to occur within 48 hours Level of consciousness: awake Pain management: adequate Airway patency: patent Cardiovascular status: acceptable Respiratory status: acceptable Hydration status: acceptable PONV: controlled Anesthetic complications: None Last vitals: Vitals: 08/16/17 2345 08/17/17 0000 08/17/17 0001 BP: 130/74 Resp: 18 Temp: 98.7 ??F (37.1 ??C) 99.3 ??F (37.4 ??C) Electronically Signed By: Jax Winters MD August 17, 2017 1:33 AM O PLAYER MECHANIC Anesthesia Preprocedure Evaluation - Jax Winters MD - 08/17/2017 12:54 AM CST PAC NOTE: ANESTHESIA PRE EVALUATION: Anesthesia Evaluation . Pt has not had prior anesthetic ROS/MED HX ENT/Pulmonary: - neg pulmonary ROS (-) tobacco use, asthma, COPD, LUIS E risk factors and recent URI Neurologic: - neg neurologic ROS (-) seizures and CVA Cardiovascular: - neg cardiovascular ROS (-) hypertension, CAD, arrhythmias and valvular problems/murmurs METS/Exercise Tolerance: Hematologic: Comments: Lab Test 08/16/17 1145 WBC 8.7 HGB 13.7 MCV 85 PLT 272 Lab Test 08/16/17 1145 NA 138 POTASSIUM 4.1 CHLORIDE 106 CO2 23 BUN 12 CR 0.79 ANIONGAP 9 WINDY 8.6 GLC 64* - neg hematologic ROS Musculoskeletal: - neg musculoskeletal ROS GI/Hepatic: (+) GERD Asymptomatic on medication, (-) hepatitis and liver disease Renal/Genitourinary: - ROS Renal section negative Endo: (+) type II DM Not using insulin - not using insulin pump Normal glucose range: GDM- diet control Obesity, . (-) Type I DM, thyroid disease and chronic steroid usage Psychiatric: - neg psychiatric ROS Infectious Disease: - neg infectious disease ROS Malignancy: - no malignancy Other: (+) Possibly Physical Exam Normal systems: cardiovascular, pulmonary and dental Airway Mallampati: II TM distance: >3 FB Neck ROM: full Dental Cardiovascular Rhythm and rate: regular and normal (-) no friction rub, no systolic click and no murmur Pulmonary breath sounds clear to auscultation(-) no rhonchi, no decreased breath sounds, no wheezes, no ralesand no stridor Anesthesia Plan History & Physical Review History and physical reviewed and following examination; no interval change. ASA Status: 2 . NPO Status: > 8 hours Plan for Epidural PONV prophylaxis: Ondansetron (or other 5HT-3) and Droperidol or Haldol Postoperative Care Postoperative pain management: IV analgesics and Multi-modal analgesia. Consents Anesthetic plan, risks, benefits and alternatives discussed with: Patient and Spouse.. . O PLAYER MECHANIC documented in this encounter Miscellaneous Notes Anesthesia Care Transfer Note - Stefanie Marie APRN CRNA - 08/17/2017 1:30 AM CST Patient: Cassidy Thompson Procedure(s): section - Wound Class: II-Clean Contaminated Diagnosis: section Diagnosis Additional Information: No value filed. Anesthesia Type: No value filed. Note: Airway :Face Mask Patient transferred to:Labor and Delivery Handoff Report: Identifed the Patient, Identified the Reponsible Provider, Reviewed the pertinent medical history, Discussed the surgical course, Reviewed Intra-OP anesthesia mangement and issues during anesthesia, Set expectations for post-procedure period and Allowed opportunity for questions and acknowledgement of understanding Vitals: (Last set prior to Anesthesia Care Transfer) PIO VITALS 08/17/2017 0047 - 08/17/2017 0130 08/17/2017 Pulse: 120 SpO2: 100 % Electronically Signed By: Stefanie Marie APRN CRNA August 17, 2017 1:30 AM O PLAYER MECHANIC documented in this encounter Plan of Treatment Not on filedocumented as of this encounter Visit Diagnoses Not on filedocumented in this encounter Administered Medications Inactive Administered Medications - up to 3 most recent administrations Medication Order MAR Action Action Date Dose Rate Site azithromycin (ZITHROMAX) 500 mg New Bag 08/17/2017 12:36 AM VIDEO PLAYER MECHANIC 50 0 mg in NaCl 0.9 % 250 mL intermittent infusion EDIN, 500 mg, Intravenous, PRE-OP/PRE-PROCEDURE, Starting on 08/17/17 at 0031, For 1 dose, Indications: Perioperative Pharmacoprophylaxis, Pre-procedure ceFAZolin (ANCEF) 1 g vial to attach to NS 100 Given 0 08/17/2017 12:27 AM VIDEO PLAYER MECHANIC 2 g ml bag for ADULT or 50 ml bag for PEDS Routine, 1 g, Intravenous, SEE ADMIN INSTRUCTIONS, Starting on 08/17/17 at 0016, Give every 2 hours while patient in surgery, starting 2 hours after pre-op dose. DO NOT GIVE intra-op dose if CrCl less than 10 mL/min (on dialysis). If CrCl less than 50 mL/min, double the time interval between doses., Indications: Perioperative Pharmacoprophylaxis, Pre-procedure dexamethasone (DECADRON) injection Given 08/17/2017 12:33 AM VIDEO PLAYER MECHANIC 4 mg PRN, Administer over 1 Minutes, Starting on 08/17/17 at 0033, Anesthesia Intra-op lactated ringers infusion New Bag 08/17/2017 12:26 AM VIDEO PLAYER MECHANIC at 125 mL/hr, Intravenous, CONTINUOUS, Pre-procedure, Starting on 08/17/17 at 0030, Until 08/17/17 at 0319 lidocaine 2%-EPINEPHrine 1:200,000 injec tion Given 08/17/2017 12:29 AM VIDEO PLAYER MECHANIC 15 mLs EPIDURAL, PRN, Starting on 08/17/17 at 0029, Anesthesia Intra-op methylergonovine (METHERGINE) injection 200 Given 07/30 12:57 AM VIDEO PLAYER MECHANIC 200 mcg mcg 200 mcg, Intramuscular, ONCE PRN, ONLY for uterine atony with significant bleeding POST-DELIVERY, Starting on Sat08/16/17 at 1207, For 1 dose, Notify provider IF uterine atony and clarify with provider medication preference. Do NOT give IF Blood Pressure greater than 140/90, preeclampsia, or chronic hypertension. midazolam (VERSED) injection Given 08/17/2017 12:45 AM VIDEO PLAYER MECHANIC 1 mg Administer over 2 Minutes, PRN, anxiety, Starting on 08/17/17 at 0045, Anesthesia Intra-op morphine (PF) (ASTRAMORPH /DURAMORPH) injection Given 08/17/2017 1:02 AM VIDEO PLAYER MECHANIC 4 mg 4 mg 4 mg, Intrathecal, ONCE, Administer over 4-5 Minutes, On 08/17/17 at 0100, For 1 dose, Epidural, not ITN For ordered doses up to 15 mg give IV Push undiluted over 4-5 minutes. ondansetron (ZOFRAN) injection 4 mg Given 08/17/2017 12:33 AM VIDEO PLAYER MECHANIC 4 mg 4 mg, Intravenous, EVERY 6 HOURS PRN, nausea, vomiting, Administer over 2-5 Minutes, Starting on 08/16/17 at 1207, If nausea not resolved in 15 minutes, notify provider before proceeding to prochlorperazine (COMPAZINE) [if ordered]. Irritant. For ordered doses up to 4 mg, give IV Push undiluted over 2-5 minutes. Given 08/16/2017 11:44 PM VIDEO PLAYER MECHANIC 4 mg oxytocin (PITOCIN) 30 units in 500 mL 0.9% Given 08/17/2017 1:21 AM VIDEO PLAYER MECHANIC 397 mLs NaCl infusion 100-340 mL/hr, Intravenous, CONTINUOUS PRN, after delivery to treat or prevent uterine atony, Starting on Sat08/16/17 at 1207, Administer 340 mL/hr over 30 minutes for a total of 170 mL then decrease to 100 mL/hr until infusion complete (about 3.5 hours) or per provider direction. Start new bag at delivery. Discontinue or saline lock peripheral IV per nurse discretion. Given 08/17/2017 12:52 AM VIDEO PLAYER MECHANIC 3 mLs documented in this encounter Care Teams Porter Marina Relationship Specialty Start Date End Date Leela Ruano MD PCP - General Family Practice 08/06/17 [facility] [address] [address] [place] [id number] documented as of this encounter
--- OUTSIDE RECORDS SUMMARY | 2022-03-08 12:42 | XMS_ITS | Encounter Summary ---
:1985 Author Organization [place] Address [facility] [place] [address] Care Team Providers Name Role Phone Leela Ruano MD Primary Care Provider Reason for Visit Auth/Cert Specialty Diagnoses / Procedures Referred By Contact Refer red To Contact room cleaner Diagnoses Rh Labor And Delivery Procedures LABOR AND DELIVERY [address], [place] [address] Phone: Fax: Referral ID Status Reason Start Date Expiration Date Visits Requ ested Visits Authorized [id number] 1 1 Encounter Details Date Type Department Care Team Description 08/16/2017 Anesthesia Event [facility] Miller Levine, [facility] [address], [place] ANESTHESIA [phone] [facility] [phone] [address] [place], [place] [address] (Wo rk) Anesthesia Record Procedure Summary Procedure Name Responsible Anesthesia Start Time Anesthesia Stop Time Anesthesiologist LABOR ANALGESIA Juan Pablo Levine MD 08/16/17 1539 08/16/17 1557 Events Date Time Event Comment 08/16/2017 1539 An Start 1557 An Stop Electronically s igned by Juan Pablo Levine on August 16, 2017 4:04 PM 1603 Name Total bupivacaine 0.25% PF (epidural) 10 mL Agents No agents on file. Blood No blood administrations on file. Lines, Drains, and Airways Type Details Placement Removal Intrathecal/Epidural Epidural; kb; Tip 08/16/17 1605 by 08/17/17 0119 by Catheter intact Taran Marie APRN SHANK MAKER Peripheral IV 08/16/17; 1145; 18 G; 08/16/17 1145 by 08/18/17 0925 by Left; Hand; Terence Godwin Emily J, RN Chlorhexidine; None; SARAH Del Toro Tolerated well documented in this encounter Social History Tobacco Use Types Packs/Day Years Used Date Former Smoker Smokeless Tobacco: Never Used Alcohol Use Standard Drinks/Week Comments No 0 (1 standard drink = 0.6 oz pure alcoho l) Sex Assigned at Date Recorded Female 08/03/2021 2:35 PM SASH STICKER documented as of this encounter OR Notes Anesthesia Postprocedure Evaluation - Shoaib Walls MD - 08/17/2017 7:39 AM CST Patient: Cassidy Thompson * No procedures listed * Diagnosis:* No pre-op diagnosis entered * Diagnosis Additional Information: Labor pain Anesthesia Type: Epidural Note: Anesthesia Post Evaluation Patient location during evaluation: Bedside and Floor Patient participation: Able to fully participate in evaluation Level of consciousness: awake and alert Pain management: adequate Airway patency: patent Cardiovascular status: acceptable Respiratory status: acceptable Hydration status: acceptable PONV: none Anesthetic complications: None Comments: Patient post labor epidural catheter, doing well. She ultimately went to section for delivery and the epidural catheter was used for the anesthetic. The catheter was removed following the section. She reports good pain relief with epidural catheter. She denies ongoing sensorimotor block, headache, fever, chills or other complaints. All questions answered, understanding voiced. She will have us contacted for any questions or problems. I or my partner was immediately available for management of this patient during epidural analgesia infusion. Last vitals: Vitals: 08/17/17 0511 08/17/17 0545 08/17/17 0645 BP: (!) 134/93 130/89 Resp: Temp: 100.9 ??F (38.3 ??C) SpO2: 96% 97% Electronically Signed By: Shoaib Walls MD August 17, 2017 7:39 AM STICKER Anesthesia Procedure Notes - Juan Pablo Levine MD - 08/16/2017 4:05 PM SASH STICKER Associated Order(s): ANE EPIDURAL BLOCK Peripheral nerve/Neuraxial procedure note : epidural catheter Pre-Procedure Performed by JUAN PABLO LEVINE Referred by LILIA Location: pre-op Procedure Times:08/16/2017 3:39 PM and 08/16/2017 3:57 PM Pre-Anesthestic Checklist: patient identified, IV checked, risks and benefits discussed, informed consent, monitors and equipment checked, pre-op evaluation and at physician/surgeon's request Timeout Correct Patient: Yes Correct Procedure: Yes Correct Site: Yes Correct Laterality: N/A Correct Position: Yes Site Marked: N/A . Procedure Documentation . Procedure: Epidural catheter. Insertion Site:L3-4 (midline approach) Injection technique: LORT saline Local skin infiltrated with mL of 1% lidocaine. SIGIFREDO at 5 cm Patient Prep;mask, sterile gloves, povidone-iodine 7.5% surgical scrub, patient draped. . Needle: Touhy needle Needle Gauge: 17. Needle Length (Inches) 3.5 # of attempts: 1 and # of redirects: . Catheter: 19 G . . Catheter threaded easily 6 cm epidural space. 11 cm at skin. . Assessment/Narrative Paresthesias: No. . . Aspiration negative for heme or CSF . Test dose of 3 mL lidocaine 1.5% w/ 1:200,000 epinephrine at 15:52. Test dose negative for signs of intravascular, subdural or intrathecal injection. STICKER Anesthesia Preprocedure Evaluation - Juan Pablo Levine MD - 08/16/2017 4:03 PM CST PAC NOTE: ANESTHESIA PRE EVALUATION: Anesthesia Evaluation history and physical reviewed . No history of anesthetic complications ROS/MED HX ENT/Pulmonary: - neg pulmonary ROS Neurologic: - neg neurologic ROS Cardiovascular: - neg cardiovascular ROS METS/Exercise Tolerance: Hematologic: Musculoskeletal: GI/Hepatic: - neg GI/hepatic ROS Renal/Genitourinary: Endo: Psychiatric: Infectious Disease: Malignancy: Other: Physical Exam Normal systems: cardiovascular, pulmonary and dental Airway Mallampati: II TM distance: > 3 FB Neck ROM: full Mouth opening: > 3 cm Dental Cardiovascular Pulmonary neg OB ROS Anesthesia Plan History & Physical Review ASA Status: . OB Epidural Asa: 2 Postoperative Care Consents Anesthetic plan, risks, benefits and alternatives discussed with: Patient.. . STICKER documented in this encounter Miscellaneous Notes Addendum Note - Shoaib Walls MD - 08/17/2017 7:39 AM CST Addendum created 08/17/17 0739 by Shoaib Walls MD Sign clinical note STICKER documented in this encounter Plan of Treatment Not on filedocumented as of this encounter Procedures Procedure Name Priority Date/Time Associated Diagnosis Comme nts ANE EPIDURAL BLOCK Routine 08/16/2017 4:06 PM SASH STICKER Procedure Note - Dwight Levine MD - 08/16/2017 4:05 PM CSTThis note is in progress. Formatting of this note migh t be different from the original. Peripheral nerve/Neuraxial p rocedure note : epidural catheter Pre-Procedure Performed by JUAN PABLO LEVINE Referred by LILIA Location: pre-op Procedure Times:08/16/2017 3: 39 PM and 08/16/2017 3:57 PM Pre-Anesthestic Checklist: p atient identified, IV checked, risks and benefits discussed, informed consent, monitors and equipment checked, pre-op evaluation and at physician/surgeon's request Timeout Correct Patient: Yes Correct Procedure: Yes Correct Site: Yes Correct Laterality: N/A Correct Position: Yes Site Marked: N/A . Procedure Documentation . Procedure: Epidural catheter . Insertion Site:L3-4 (midline approach) Injection technique: LORT saline Local skin infiltrated with mL of 1% lidocaine. SIGIFREDO at 5 cm Patient Prep;mask, sterile g loves, povidone-iodine 7.5% surgical scrub, patient draped. . Needle: Touhy needle Needle Gauge: 17. Needle Length (Inches) 3.5 # of attempts: 1 and # of redirects: . Catheter: 19 G . . Catheter threaded easily 6 cm epidural space. 11 cm at skin. . Assessment/Narrative Paresthesias: No. . . Aspira tion negative for heme or CSF . Test dose of 3 mL lidocaine 1.5% w/ 1:200,000 epinephrine at 15:52. Test dose negative for signs of intravascular, subdural or intrathecal injection. documented in this encounter Visit Diagnoses Not on filedocumented in this encounter Administered Medications Inactive Administered Medications - up to 3 most recent administrations Medication Order MAR Action Action Date Dose Rate Site bupivacaine 0.25% PF (epidural) Given 08/16/2017 3:56 PM SASH STICKER 10 mLs EPIDURAL, PRN, Starting on Sat08/16/17 at 1556, Anesthesia Intra-op documented in this encounter Care Teams Pipe Smoking Machine Operator Relationship Specialty Start Date End Date Leela Ruano MD PCP - General [facility] 08/06/17 [facility] [id number] [address] [place] [id number] documented as of this encounter
--- OUTSIDE RECORDS SUMMARY | 2022-03-08 12:42 | XMS_ITS | Encounter Summary ---
:1985 Author Organization [place] Address [facility] [place] [address] Care Team Providers Name Role Phone Unavailable Primary Care Provider Unavailable Reason for Visit Reason Onset Date Comments Confirmation Of 12/06/2016 Encounter Details Date Type Department Care Team Description 12/06/2016 Telephone [facility] Leticia Zaidi [facility] MD Rig[address] [place], [place] [address] [address] [place], [place] [phone] (Wo rk) [address] [phone] Social History Tobacco Use Types Packs/Day Years Used Date Never Assessed Sex Assigned at Date Recorded Female 08/03/2021 2:35 PM RIVET SPINNER documented as of this encounter Miscellaneous Notes Telephone Encounter - Nelly Junior RN - 12/06/2016 11:19 AM CDT Call back to pt. Updated that we do not typically do confirmation of other than the unine test that is done at the initial nurse visit. Advised to schedule new apt. Transferred to scheduling. Telephone Encounter - Amber Grayson - 12/06/2016 8:05 AM CDT Pt would like to be seen for an OB confirmation. Please Call pt to advise. Thank you, Amber Smith Central Scheduling [phone] documented in this encounter Plan of Treatment Not on filedocumented as of this encounter Visit Diagnoses Not on filedocumented in this encounter
--- OUTSIDE RECORDS SUMMARY | 2022-03-08 12:43 | XMS_ITS | Encounter Summary ---
:1985 Author [facility] [address] [place] [address] Care Team Providers Name Role Phone Leela Ruano MD Primary Care Provider Reason for Visit Reason Comments Other Encounter Details Date Type Department Care Team Description 04/14/2007 Telephone [facility] [address] La[address] Leone Other Gastroenterology [address] [facility] [place] [address] Social History Tobacco Use Types Packs/Day Years Used Date Smoking Tobacco: Never Assessed Sex Assigned at Date Recorded Not on file documented as of this encounter Progress Notes Lavern Leone - 04/14/2007 4:37 PM CDT Phone Note filed by Lavern Leone RN at 11/15/108 Author: Lavern Leone RN Service: (none) Author Type: (none) Filed: 11/15/10 0418 Note Time: 04/14/07 1637 Status: Signed Airline Mechanic: Trung Nguyen pre-assessment completed for endoscopic procedure. Created on 14Apr2007 4:37pm by LAVERN LEONE NING FACILITATOR documented in this encounter Plan of Treatment Not on filedocumented as of this encounter Visit Diagnoses Not on filedocumented in this encounter Care Teams Aligner Relationship Specialty Start Date End Date Leela Ruano MD PCP - General 10/31/10 [address] [address] [place] [id number] documented as of this encounter
--- OUTSIDE RECORDS SUMMARY | 2022-03-08 12:43 | XMS_ITS | Encounter Summary ---
:1985 Author Organization [employer] Address [address] [place] [address] Care Team Providers Name Role Phone Leela Ruano MD Primary Care Provider Reason for Visit Reason Comments Orders Needed Encounter Details Date Type Department Care Team Description 12/06/2021 Telephone [facility] [address] Emma Branham MD Orders Needed Endocrinology [address] [place] [address] [place], [place] [id number] [phone] Social History Tobacco Use Types Packs/Day Years [...] documented as of this encounter Nursing Notes Astrid Liu, RN - 12/06/2021 2:37 PM CDT Faxed lab orders to [facility]. [phone] Fax: documented in this encounter Plan of Treatment Not on filedocumented as of this encounter Visit Diagnoses Not on filedocumented in this encounter Care Teams Security Patrol Officer Relationship Specialty Start Date End Date Leela Ruano MD PCP - General 10/31/10 [address] [address] [place] [id number] documented as of this encounter
--- OUTSIDE RECORDS SUMMARY | 2022-03-08 12:43 | XMS_ITS | Encounter Summary ---
:1985 Author Organization [facility] Address [address] [place] [address] Care Team Providers Name Role Phone Leela Ruano MD Primary Care Provider Encounter Details Date Type Department Care Team Description 06/01/2009 PN Conversion Only [place] [address] [address] [place] [address] [place] [address] Social History Tobacco Use Types Packs/Day Years Used Date Smoking Tobacco: Never Assessed Sex Assigned at Date Recorded Not on file documented as of this encounter Plan of Treatment Not on filedocumented as of this encounter Procedures Procedure Name Priority Date/Time Associated Diagnosis Comme nts STREP GROUP A Routine 06/01/2009 1:54 PM Results for this ANTIGEN TEST SOFTWARE FIRMWARE ENGINEER procedure are i n the results section. BETA STREP FOLLOWUP Routine 06/01/2009 1:54 PM Re sults for this SOFTWARE FIRMWARE ENGINEER procedure are i n the results section. documented in this encounter Results Strep Group A Antigen Test (06/01/2009 1:54 PM SOFTWARE FIRMWARE ENGINEER) Analysis Performed At Patho logist Time Signature Strep Group A Negative Negative HP CONVERSION Antigen Test Comment: Culture to follow. Specimen (Source) Anatomical Collection Method Collection Time Re ceived Time Location / / Volume Laterality 06/01/2009 1:54 PM SOFTWARE FIRMWARE ENGINEER Juan J Meyer MD LAB_1 Performing Organization Address City/State/ZIP Code Phon e Number HP CONVERSION Beta Strep Followup (06/01/2009 1:54 PM SOFTWARE FIRMWARE ENGINEER) P athologist Signature Strep Screen SEE TEXT HP CONVERSION Comment: Patient: CASSIDY KIRKLAND Rapid Strep Follow up Culture ? Collected: ??[id number] ??[id number] Source: Throat ?Processed: ??[id number] ??[id number] ? 1V Final Report ------ ?[id number] ??0822 No beta hemolytic Strep group A isolated . Specimen (Source) Anatomical Collection Method Collection Time Re ceived Time Location / / Volume Laterality 06/01/2009 1:54 PM SOFTWARE FIRMWARE ENGINEER Juan J Meyer MD LAB_1 Performing Organization Address City/State/ZIP Code Phon e Number HP CONVERSION documented in this encounter Visit Diagnoses Not on filedocumented in this encounter Care Teams General Studies Program Chair Relationship Specialty Start Date End Date Leela Ruano MD PCP - General 10/31/[address] [place], [place] [id number] documented as of this encounter
--- OUTSIDE RECORDS SUMMARY | 2022-03-08 12:43 | XMS_ITS | Encounter Summary ---
:1985 Author Organization [facility] Address [address] [place] [address] Care Team Providers Name Role Phone Neva Lopez MD Primary Care Provider Reason for Visit Reason Comments Other Encounter Details Date Type Department Care Team Description 09/03/2007 Telephone [facility] [address] [address] [place] [address] Social History Tobacco Use Types Packs/Day Years Used Date Smoking Tobacco: Never Assessed Sex Assigned at Date Recorded Not on file documented as of this encounter Progress Notes Center, Message - 09/03/2007 11:07 AM CST Phone Note filed by VivaRay at 11/15/10 4566 Author: VivaRay Service: (none) Author Type: (none) Filed: 11/15/10 9663 Note Time: 09/03/07 1107 Status: Signed Operations Inspector: VivaRay Non -Symptom Message from Front Line Caller Name/Relationship: natalya--mom Primary Supervisor Public Health Nursing: Dr Lopez Message: Pt needs a note faxed to her school for her appt tomorrow asking that she be excused for her appt. attn kimi avila fax # [phone]. school needs note by 2pm today. Glass Blower: Natalya Best call back number: [phone] Is it OK to leave a confidential message on this voicemail? yes *[email or web address] Created on 03Sep2007 11:07am by JULIUS RUANO On 03Sep2007 12:34pm NEVA LOPEZ wrote: Note done. Please fax. Acknowledged by NEVA LOPEZ on 12:34pm On 03Sep2007 2:17pm MARY GRACE CARRERA wrote: faxed Acknowledged by MARY GRACE CARRERA on 2:17pm CURER documented in this encounter Plan of Treatment Not on filedocumented as of this encounter Visit Diagnoses Not on filedocumented in this encounter Care Teams Claims Administrator Relationship Specialty Start Date End Date Neva Lopez MD PCP - General 10/31/10 [address] [place] [address] documented as of this encounter
--- OUTSIDE RECORDS SUMMARY | 2022-03-08 12:43 | XMS_ITS | Encounter Summary ---
:1985 Author Organization [facility] Address [address] [place] [address] Care Team Providers Name Role Phone Leela Ruano MD Primary Care Provider Encounter Details Date Type Department Care Team Description 08/23/2009 Nursing Visit [facility] [place]iel Rodrí[place] [address] [place] [address] Social History Tobacco Use Types Packs/Day Years Used Date Smoking Tobacco: Never Assessed Sex Assigned at Date Recorded Not on file documented as of this encounter Plan of Treatment Not on filedocumented as of this encounter Visit Diagnoses Not on filedocumented in this encounter Care Teams Concrete Mixer Relationship Specialty Start Date End Date Leela Ruano MD PCP - General 10/31/10 [address] [facility] [place] [id number] documented as of this encounter
--- OUTSIDE RECORDS SUMMARY | 2022-03-08 12:43 | XMS_ITS | Encounter Summary ---
:1985 Author Organization [facility] Address [address] [place] [address] Care Team Providers Name Role Phone Leela Ruano MD Primary Care Provider Encounter Details Date Type Department Care Team Description 07/17/2007 Office Visit [facility] [place] [address] [address] [place] [address] [phone] Social History Tobacco Use Types Packs/Day Years Used Date Smoking Tobacco: Never Assessed Sex Assigned at Date Recorded Not on file documented as of this encounter Last Filed Vital Signs Vital Sign Reading Time Taken Comments Blood Pressure 128/71 07/17/2007 11:30 AM BRINE PLANT OPERATOR Pulse 76 07/17/2007 11:30 AM BRINE PLANT OPERATOR Temperature 36.7 ??C (98.1 ??F) 07/17/2007 11:30 AM ORAL C: 36.7 C BRINE PLANT OPERATOR Respiratory Rate 2 07/17/2007 11:30 AM BRINE PLANT OPERATOR Oxygen Saturation - - Inhaled Oxygen Concentration - - Weight - - Height - - Body Mass Index - - documented in this encounter Progress Notes Lina Morales MD - 07/17/2007 12:01 AM CST Progress Notes signed by Lina Morales MD at 07/19/07 0937 Author: Lina Morales MD Service: (none) Author Type: Physician Filed: 11/18/10 0002 Note Time: 07/17/07 0001 Status: Signed Information Technology Security Analyst: Lina Morales MD (Physician) NAME: CASSIDY KIRKLAND MR#: [id number] ACCT: [id number] VISIT: [id number] DICTATING CLINICIAN: LINA MORALES MD JOB: [id number] LOC: 520 CLINIC PROGRESS NOTE DATE OF VISIT: 07/17/2007 SUBJECTIVE: : 1985. CHIEF COMPLAINT: Recheck abdominal pain. HISTORY OF PRESENT ILLNESS: A 21-year-old female here with abdominal pain. Onset of the pain was last night, just lasted a few minutes. Sharp-stabbing pain in the mid abdomen area. The pain went away after it come on about 10:30, just lasted a few minutes. She had no anorexia, nausea or vomiting. Pain severity last night was 7/10. She has absolutely no pain now, anorexia, nausea, vomiting, diarrhea or urinary symptoms. No HACKSAW INSPECTOR symptoms. She did have an extensive workup in March and April for pain and ended up being treated with Prilosec and had upper GI endoscopy which was normal. At 1 time thought to have irritable bowel syndrome, given nortriptyline 10 mg at bedtime and that seemed to help. Also used some Prilosec this fall and it may have helped a little. MEDS: Updated in patient health profile. ADR/ALLERGIES: UPDATED IN PATIENT HEALTH PROFILE. OBJECTIVE: VS: Updated in patient health profile. HEENT: Clear. LUNGS: Clear. HEART: Normal without murmur. ABDOMEN: Totally soft, nontender, no rebound, no guarding, no peritoneal signs, normal bowel sounds present. Nontender. PELVIC: Suggested but she deferred at this point. ASSESSMENT: Abdominal pain, resolved. PLAN: At this point, observe. If the pain should recur, especially if it recurs in the right lower quadrant, fever, nausea or vomiting, would worry about appendicitis, would recommend a CT scan and re-evaluation if that should occur. In the meantime, just observe. Also was given a refill of the nortriptyline with helped with abdominal pain in the past, 10 mg at bedtime as a trial. She works at [employer] and one of the main reasons she came in was a work for school. She was given a note for school for today and tomorrow which was also faxed to her work place. PAMELA:[id number] C: 07/17/07 15:23 DOCUMENT: [id number] E PLANT OPERATOR documented in this encounter Plan of Treatment Not on filedocumented as of this encounter Visit Diagnoses Not on filedocumented in this encounter Care Teams Big Data Engineer Relationship Specialty Start Date End Date Leela Ruano MD PCP - General 10/31/10 [address] [place] [address] documented as of this encounter
--- OUTSIDE RECORDS SUMMARY | 2022-03-08 12:43 | XMS_ITS | Encounter Summary ---
:1985 Author Organization [facility] Address [address] [place] [address] Care Team Providers Name Role Phone Leela Ruano MD Primary Care Provider Encounter Details Date Type Department Care Team Description 10/14/2007 Office Visit [facility] [place] [place] [address] [place] [id number] Social History Tobacco Use Types Packs/Day Years Used Date Smoking Tobacco: Never Assessed Sex Assigned at Date Recorded Not on file documented as of this encounter Last Filed Vital Signs Vital Sign Reading Time Taken Comments Blood Pressure 125/93 10/14/2007 10:49 AM CDT Pulse 97 10/14/2007 10:49 AM CDT Temperature 37.4 ??C (99.3 ??F) 10/14/2007 10:49 AM CDT C: 3 7.4 C Respiratory Rate 18 10/14/2007 10:49 AM CDT Oxygen Saturation - - Inhaled Oxygen Concentration - - Weight - - Height - - Body Mass Index - - documented in this encounter Progress Notes Elayne Awad MD - 10/14/2007 12:01 AM CDT Progress Notes signed by Elayne Awad MD at 10/27/07 1024 Author: Elayne wAad MD Service: (none) Author Type: Physician Filed: 11/18/10 0202 Note Time: 10/14/07 0001 Status: Signed Slackman: Elayne Awad MD (Physician) NAME: CASSIDY KIRKLAND MR#: [id number] ACCT: [id number] VISIT: [id number] DICTATING CLINICIAN: ELAYNE AWAD MD JOB: [id number] LOC: 520 CLINIC PROGRESS NOTE DATE OF VISIT: 10/14/2007 SUBJECTIVE: This 22-year-old woman states she has had a migraine for the last 3 to 4 days. She has been nauseated, but has not vomited. She has had muscle tension headaches in the past. She has had a cold for the last 2 weeks. She complains of pain in the central forehead and temples. Slight coughing. No fever that she is aware of. MEDICATIONS: Oral contraceptives. ADR/ALLERGIES: PENICILLIN. OBJECTIVE: VS: BP: 125/93. T: 99.4. P: 97. R: 18. The patient is comfortable in a brightly lit room. Ears: TMs are normal bilaterally. Throat: Purulent postnasal drip. NECK: No nodes. The neck is supple. There is tenderness in the suboccipital muscles. Flexing forward does elicit increasing pressure centrally above the bridge of the nose. LUNGS: Clear. ASSESSMENT: Muscle tension headache, sinusitis. PLAN: Vicodin 6 tablets are given. A Z-Chris is given for the sinusitis, but she is advised to start with Sudafed and nasal saline lavage and only fill the prescription if symptoms are not improving centrally. CAM:[id number] C: 10/14/07 20:48 DOCUMENT: [id number] documented in this encounter Plan of Treatment Not on filedocumented as of this encounter Visit Diagnoses Not on filedocumented in this encounter Care Teams Research Greenhouse Supervisor Relationship Specialty Start Date End Date Leela Ruano MD PCP - General 10/31/10 [address] [place] [place] [address] documented as of this encounter
--- OUTSIDE RECORDS SUMMARY | 2022-03-08 12:43 | XMS_ITS | Encounter Summary ---
:1985 Author Organization [facility] Address [address] [address] Care Team Providers Name Role Phone Leela Ruano MD Primary Care Provider Encounter Details Date Type Department Care Team Description 05/29/2007 Office [place] [facility] [place] [address] [address] [place] [address] Social History Tobacco Use Types Packs/Day Years Used Date Smoking Tobacco: Never Assessed Sex Assigned at Date Recorded Not on file documented as of this encounter Last Filed Vital Signs Vital Sign Reading Time Taken Comments Blood Pressure 128/72 05/29/2007 10:50 AM CDT Pulse 75 05/29/2007 10:50 AM CDT Temperature 35.9 ??C (96.6 ??F) 05/29/2007 10:50 AM ORAL C: 35.9 C CDT Respiratory Rate 14 05/29/2007 10:50 AM CDT Oxygen Saturation - - Inhaled Oxygen Concentration - - Weight - - Height - - Body Mass Index - - documented in this encounter Progress Notes Chuck Erwin MD - 05/29/2007 12:01 AM CDT Progress Notes signed by Chuck Erwin MD at 06/30/07 7737 Author: Chuck Erwin MD Service: (none) Author Type: Physician Filed: 11/17/10 2301 Note Time: 05/29/07 0001 Status: Signed Senior Manager Quality Assurance: Chuck Erwin MD (Physician) NAME: CASSIDY KIRKLAND MR#: [id number] ACCT: [id number] VISIT: [id number] DICTATING CLINICIAN: CHUCK ERWIN MD JOB: [id number] LOC: 520 CLINIC PROGRESS NOTE DATE OF VISIT: 05/29/2007 SUBJECTIVE: Patient apparently goes to [employer], and she needs a note for school. She said she felt a little nauseated yesterday at school, but then got better, and then the nausea came back this morning. About an hour ago she threw up twice and now feels okay. She had a little diarrhea last night, but not this morning and denies fever or chills, headache, sore throat, cough, or urinary symptoms; and states she is currently having her menstrual period. ADR/ALLERGIES: SHE HAS AN ALLERGY TO PENICILLIN. MEDICATIONS: Takes omeprazole p.r.n., but her stomach has not been acting up recently, other than this recent stuff yesterday. She does also take control pills. But, of course, denies and denies nursing. She is not having any pain. OBJECTIVE: VS: T: 96. P: 75. R: 14. She appears alert and oriented x 3. Exam shows normal ears, nose, and throat. FLANKS/ABDOMEN: Completely nontender. SKIN: Shows no rashes. ASSESSMENT: Suspected resolving gastroenteritis, probably viral. PLAN: Dietary management outlined and note given for school that she was here today, and she is to follow up right away if any recurrence of symptoms. [id number] C: 05/30/07 11:57 DOCUMENT: [id number] ICAL LABORATORY TESTER documented in this encounter Plan of Treatment Not on filedocumented as of this encounter Visit Diagnoses Not on filedocumented in this encounter Care Teams Dairy Husbandry Teacher Relationship Specialty Start Date End Date Leela Ruano MD PCP - General 10/31/10 [address] [place] [address] documented as of this encounter
--- OUTSIDE RECORDS SUMMARY | 2022-03-08 12:43 | XMS_ITS | Encounter Summary ---
:1985 Author Organization [facility] Address [address] [place] [address] Care Team Providers Name Role Phone Leela Ruano MD Primary Care Provider Encounter Details Date Type Department Care Team Description 09/15/2015 Lab Visit [facility] Diabetes mellitus screening; [address] [facility] Lipid screening; [place] [address] Screening for thyroid disord er [phone] Social History Tobacco Use Types Packs/Day Years Used Date Smoking Tobacco: Never Assessed Sex Assigned at Date Recorded Not on file documented as of this encounter Plan of Treatment Not on filedocumented as of this encounter Procedures Procedure Name Priority Date/Time Associated Comments Diagnosis GLUCOSE Routine 09/15/2015 8:03 AM Diabetes mellitus Resu lts for this SLEEVE SEPARATOR screening procedure are i n the results section. THYROID STIMULATING Routine 09/15/2015 8:03 AM Screening for R esults for this HORMONE SLEEVE SEPARATOR thyroid disorder procedure a re in the results section. LIPID PANEL AND Routine 09/15/2015 8:03 AM Lipid screening Res ults for this DIRECT LDL(IF NEEDED) SLEEVE SEPARATOR proced ure are in the results section. documented in this encounter Results THYROID STIMULATING HORMONE (09/15/2015 8:03 AM SLEEVE SEPARATOR) P athologist Signature Thyroid 0.71 0.20 - HP CONVERSION Stimulating 4.50 Hormone uIU/mL Specimen Anatomical Collection Method Collection Time Receive d Time (Source) Location / / Volume Laterality 09/15/2015 8:03 AM 02/18/201 6 SLEEVE SEPARATOR 12:27 PM SLEEVE SEPARATOR Narrative HP CONVERSION - 09/15/2015 1:51 PM SLEEVE SEPARATOR Performed at [address] [address] CLIA number [id number] Leela Ruano MD LAB_1 Performing Organization Address City/[facility]/ZIP Code Phon e Number HP CONVERSION Lipid Panel and Direct LDL(If Needed) (09/15/2015 8:03 AM SLEEVE SEPARATOR) [facility] gist Method Time Signature Cholesterol 138 0 - 199 HP CONVERSION mg/dL Triglycerides 62 4 - 149 HP CONVERSION mg/dL HDL Cholesterol 50 >39 mg/dL HP CONVERSION Cholesterol/HDL 2.8 HP CONVERSION Ratio Screen LDL Calculated 76 19 - 130 HP CONVERSION mg/dL Length Of Fast =12.0+ HP CONVERSION Specimen Anatomical Collection Method Collection Time Receive d Time (Source) Location / / Volume Laterality 09/15/2015 8:03 AM 6 8:03 SLEEVE SEPARATOR AM SLEEVE SEPARATOR Narrative HP CONVERSION - 09/15/2015 8:44 AM SLEEVE SEPARATOR Performed at [facility], [address] [place] [address] CLIA number [id number] Leela Ruano MD LAB_1 Performing Organization Address City/[facility] Phon e Number HP CONVERSION GLUCOSE (09/15/2015 8:03 AM SLEEVE SEPARATOR) athologist Signature Lab Glucose 100 60 - 100 HP CONVERSION mg/dL Specimen Anatomical Collection Method Collection Time Receive d Time (Source) Location / / Volume Laterality 09/15/2015 8:03 AM 6 8:03 SLEEVE SEPARATOR AM SLEEVE SEPARATOR Narrative HP CONVERSION - 09/15/2015 8:44 AM SLEEVE SEPARATOR Performed at [facility], [address] [place] [address] CLIA number [id number] Leela Ruano MD LAB_1 Performing Organization Address City/[facility] Phon e Number HP CONVERSION documented in this encounter Visit Diagnoses Diagnosis Diabetes mellitus screening Screening for diabetes mellitus Lipid screening Screening for lipoid disorders Screening for thyroid disorder documented in this encounter Care Teams Security Guard Relationship Specialty Start Date End Date Leela Ruano MD PCP - General 10/31/10 [address] [place] [address] documented as of this encounter
--- OUTSIDE RECORDS SUMMARY | 2022-03-08 12:43 | XMS_ITS | Encounter Summary ---
:1985 Author Organization [facility] Address [address] [place] [address] Care Team Providers Name Role Phone Leela Ruano MD Primary Care Provider Reason for Visit Reason Comments Pharyngitis Encounter Details Date Type Department Care Team Description 01/04/2017 Hospital Encounter [facility] Erica Ruiz MD Sore throat; [address] [place] [address] [place] [address] Blvd [phone] [place], [place] [phone] (Wo rk) Social History Tobacco Use Types Packs/Day Years [...] on one occasion? Comment: Alcoholic Drinks/day: Amount:1-2 08//2 016 drinks; Freq:2-3/week ; Sex Assigned at [...] CDT Inhaled Oxygen Concentration - - Weight - - Height - - Body Mass Index - - documented in this encounter ED Notes Erica Rubi MD - 01/04/2017 12:00 PM CDT NAME: CASSIDY MILLIGAN MR#: [id number] CSN: [id number] AUTHENTICATING CLINICIAN: Erica Rubi MD CONFIRM #: [id number] LOC: 520 URGENT CARE PROGRESS NOTE DATE OF VISIT: 01/04/2017 : 1985 CHIEF COMPLAINT: Possible strep throat. HPI: This pleasant 31-year-old comes in today complaining of a sore throat that has been going on for thepast 3 days. She has some mild sinus pressure. She has felt hot and then cold but has not had a fever. She is 7 weeks . Denies any ear pain and does not have a cough. PAST MEDICAL HISTORY: Reviewed through [employer]. PAST SURGICAL HISTORY: Reviewed through [employer]. MEDICATIONS: Reviewed through [employer]. ALLERGIES: Penicillin. OBJECTIVE: VITALS: Temperature 98.6, pulse 79, respirations 16, blood pressure 112/70, O2 sat is 97% on room air. GENERAL: Alert and oriented. No apparent distress. HEENT: Tympanic membranes: No sign of infection. Sinuses are nontender. Oropharynx is pink and moist. Tonsils are mildly enlarged and erythematous. NECK: Reveals mild cervical lymphadenopathy anteriorly. LUNGS: Clear. HEART: Regular. ABDOMEN: Soft, nontender. EXTREMITIES: No rash or cyanosis. Strep screen is negative. ASSESSMENT: Viral illness. PLAN: Rest, fluids, ibuprofen and Tylenol. I will have her do an overnight throat culture just to make sure the strep is negative and patient is in agreement with the plan and certainly if symptoms are not improving, if she develops a fever, she is to follow up immediately and she is in agreement with the plan. ROMEL:MAICOL C: CONFIRM #: [id number] documented in this encounter Plan of Treatment Not on filedocumented as of this encounter Procedures Procedure Name Priority Date/Time Associated Diagnosis Comme nts BETA STREP RESP STAT 01/04/2017 3:18 PM Viral illness Resul ts for this CULT CDT procedure are i n the results section. GROUP A STREP STAT 01/04/2017 3:02 PM Sore throat Results for this ANTIGEN SCREEN CDT procedure are in the results section. documented in this encounter Results Strep Screen Culture Throat (CSS) (01/04/2017 3:18 PM CDT) [facility] gist Method Time Signature Source Throat PN SOFT Site PN SOFT Strep Screen No Group A 01/06/2017 PN SOFT Streptococcus 6:54 AM CDT Isolated Specimen (Source) Anatomical Collection Method Collection Time Re ceived Time Location / / Volume Laterality 01/04/2017 3:18 PM CDT Narrative PN SOFT - 01/06/2017 6:54 AM CDT Performed at [address] [address], CLIA Number [id number] Erica Rubi MD LAB_1 Performing Organization Address City/[facility] Phon e Number PN SOFT [address] [place] [address] Rapid Strep Group A Waived (RSAW) (01/04/2017 3:02 PM CDT) athologist Signature Strep A Negative Negative PN SOFT Antigen Strep A Source THROA: PN SOFT Specimen Anatomical Collection Method Collection Time Receive d Time (Source) Location / / Volume Laterality 01/04/2017 3:02 PM 7 4:15 CDT PM CDT Narrative PN SOFT - 01/04/2017 4:20 PM CDT Performed at [facility], [address] [place] [address] CLIA number [id number] Jack KELLER LAB_1 Performing Organization Address City/[facility] [[email or web address]] Code Phon e Number PN SOFT [address] [place] [address] documented in this encounter Visit Diagnoses Diagnosis Sore throat Acute pharyngitis Viral illness Unspecified viral infection, in conditio ns classified elsewhere and of unspecified site Triage Assessment Note - Jos Chong RN - 01/04/2017 2:58 PM CDT Pt presents with fever, chills, sore throat, body aches, and slight cough, onset on and off x 1 week. Symptoms became worse today. Pt is currently 7 weeks . documented in this encounter Care Teams Orchestra Leader Relationship Specialty Start Date End Date Leela Ruano MD PCP - General 10/31/10 [address] [place] [address] documented as of this encounter
--- OUTSIDE RECORDS SUMMARY | 2022-03-08 12:43 | XMS_ITS | Encounter Summary ---
:1985 Author Organization [facility] Address [address] [place] [address] Care Team Providers Name Role Phone Leela Ruano MD Primary Care Provider Encounter Details Date Type Department Care Team Description 08/22/2007 PN Conversion Only [facility] Sandie Frankel, [address] [facility] [place] [address] Social History Tobacco Use Types Packs/Day Years Used Date Smoking Tobacco: Never Assessed Sex Assigned at Date Recorded Not on file documented as of this encounter Plan of Treatment Not on filedocumented as of this encounter Procedures Procedure Name Priority Date/Time Associated Diagnosis Comme nts STREP GROUP A Routine 08/22/2007 4:56 PM Results for this ANTIGEN TEST SKI GUIDE procedure are i n the results section. BETA STREP FOLLOWUP Routine 08/22/2007 4:56 PM Re sults for this SKI GUIDE procedure are i n the results section. documented in this encounter Results Strep Group A Antigen Test (08/22/2007 4:56 PM SKI GUIDE) Analysis Performed At Patho logist Time Signature Strep Group A Negative Negative HP CONVERSION Antigen Test Comment: Culture to follow. Specimen (Source) Anatomical Collection Method Collection Time Re ceived Time Location / / Volume Laterality 08/22/2007 4:56 PM SKI GUIDE Sandie Carrillo MD LAB_1 Performing Organization Address City/State/ZIP Code Phon e Number HP CONVERSION Beta Strep Followup (08/22/2007 4:56 PM SKI GUIDE) P athologist Signature Strep Screen SEE TEXT HP CONVERSION Comment: Patient: CASSIDY KIRKLAND Rapid Strep Follow up Culture ? Collected: ?1655 Source: Throat ?Processed: ?170 ? 1V Final Report ------ ?0943 No beta hemolytic Strep group A isolated . Specimen (Source) Anatomical Collection Method Collection Time Re ceived Time Location / / Volume Laterality 08/22/2007 4:56 PM SKI GUIDE Sandie Carrillo MD LAB_1 Performing Organization Address City/State/ZIP Code Phon e Number HP CONVERSION documented in this encounter Visit Diagnoses Not on filedocumented in this encounter Care Teams Head Custodian Relationship Specialty Start Date End Date Leela Ruano MD PCP - General 10/31/10 [address] [place] [address] documented as of this encounter
--- OUTSIDE RECORDS SUMMARY | 2022-03-08 12:43 | XMS_ITS | Encounter Summary ---
:1985 Author Organization [facility] Address [address] [place] [address] Care Team Providers Name Role Phone Leela Ruano MD Primary Care Provider Encounter Details Date Type Department Care Team Description 11/28/2010 PN Conversion Only [facility] Leela Ruano , Medicine [address] [address] [address] [place] [address] [place] [address] [phone] (Wo rk) Social History Tobacco Use Types Packs/Day Years Used Date Smoking Tobacco: Never Assessed Sex Assigned at Date Recorded Not on file documented as of this encounter Plan of Treatment Not on filedocumented as of this encounter Visit Diagnoses Not on filedocumented in this encounter Care Teams Exceptional Needs Teacher Relationship Specialty Start Date End Date Leela Ruano MD PCP - General 10/31/10 [address] [address] [place] [address] documented as of this encounter
--- OUTSIDE RECORDS SUMMARY | 2022-03-08 12:43 | XMS_ITS | Encounter Summary ---
:1985 Author Organization [facility] Address [address] [place] [address] Care Team Providers Name Role Phone Leela Ruano MD Primary Care Provider Encounter Details Date Type Department Care Team Description 09/04/2007 PN Conversion Only [place] [address] [employer] [address] [place] [address] [place], [place] [phone] (Wo rk) Social History Tobacco Use Types Packs/Day Years Used Date Smoking Tobacco: Never Assessed Sex Assigned at Date Recorded Not on file documented as of this encounter Last Filed Vital Signs Vital Sign Reading Time Taken Comments Blood Pressure 118/74 09/04/2007 3:28 PM [employer] Pulse 84 09/04/2007 3:28 PM [employer] Temperature - - Respiratory Rate - - Oxygen Saturation - - Inhaled Oxygen Concentration - - Weight 55.8 kg (122 lb 15.9 oz) 09/04/2007 3:28 PM C: 5 5.8kg [employer] Height 165.1 cm (5' 5) 09/04/2007 3:28 PM C: 165.1cm [employer] Body Mass Index 20.47 09/04/2007 3:28 PM [employer] documented in this encounter Plan of Treatment Not on filedocumented as of this encounter Procedures Procedure Name Priority Date/Time Associated Diagnosis Comme nts ECG [facility] Routine 09/04/2007 4:29 PM Res ults for this [employer] procedure are i n the results section. documented in this encounter Results ECG 12 [facility] (09/04/2007 4:29 PM [employer]) Specimen (Source) Anatomical Collection Method Collection Time Re ceived Time Location / / Volume Laterality 09/04/2007 4:29 PM [employer] Narrative HP CONVERSION - 09/04/2007 4:29 PM [employer] Sinus rhythm with short MI Otherwise normal ECG No previous ECGs available Imr Conversion PN ECG ORDERABLES Performing Organization Address City/State/ZIP Code Phon e Number HP CONVERSION documented in this encounter Visit Diagnoses Not on filedocumented in this encounter Care Teams Grader Tender Relationship Specialty Start Date End Date Leela Ruano MD PCP - General 10/31/10 [address] [place] [address] documented as of this encounter
--- OUTSIDE RECORDS SUMMARY | 2022-03-08 12:43 | XMS_ITS | Encounter Summary ---
:1985 Author Organization [facility] Address [address] [place] [address] Care Team Providers Name Role Phone Leela Ruano MD Primary Care Provider Reason for Visit Reason Comments Other Encounter Details Date Type Department Care Team Description 04/16/2007 Telephone [facility] [place] Other [address] [place] [address] Social History Tobacco Use Types Packs/Day Years Used Date Smoking Tobacco: Never Assessed Sex Assigned at Date Recorded Not on file documented as of this encounter [facility], Message - 04/16/2007 12:27 PM CDT Phone Note filed by Tus reQRdos at 11/15/10425 Author: Tus reQRdos Service: (none) Author Type: (none) Filed: 11/15/10425 Note Time: 04/16/07 1227 Status: Signed Print Shop Manager: Tus reQRdos Form Tracking Caller Name/Relationship: Cassidy Primary C Software Engineer: Gary Type of form (i.e. school,camp)? note for 5 day leave Please fax for Brianna Kam @ [facility] [employer]. Date needed: 04/16 Mail/Pickup/ Contact: Cassidy Keith call back number: [phone] cell Is it ok to leave a confidential message on this voicemail? yes Have you signed a consent form for release of this information? *[email or web address] Created on 16Apr2007 12:27pm by PARKER SCHWAB On 16Apr2007 12:29pm JOHN GALLARDO wrote: Pt called and requested she be called when fax is sent. She can be reached at [phone] On 16Apr2007 1:28pm MIGUEL MUÑIZ wrote: Can you find out why she needs a specific 5 day leave and for what dates? Thanks. Acknowledged by MIGUEL MUÑIZ on 1:28pm On 16Apr2007 2:21pm GURJIT ODEN wrote: Left message for pt. to call back with specific dates. Acknowledged by GURJIT ODEN on 2:21pm On 16Apr2007 3:53pm GREY MANRIQUEZ wrote: Pt. called back. Dates are this Fri, Sat,Sun, Mon, Tu (04/18-04/22). At school only a certain # of days can be missed, but if her next doctor appt. is scheduled as [facility] it won't count against her, and she has an appt. at the [facility] scheduled. Fax # info above. On 16Apr2007 6:39pm MIGUEL MUÑIZ wrote: Please fax the note to above number. Thanks. Acknowledged by MIGUEL MUÑIZ on 6:39pm On 17Apr2007 8:33am GURJIT ODEN wrote: Letter faxed and message left on pts. voice mail. Acknowledged by GURJIT ODEN on 8:33am IDE BONE ROLLER documented in this encounter Plan of Treatment Not on filedocumented as of this encounter Visit Diagnoses Not on filedocumented in this encounter Care Teams Hook And Eye Machine Operator Relationship Specialty Start Date End Date Leela Ruano MD PCP - General 10/31/10 [address] [place] [address] documented as of this encounter
--- OUTSIDE RECORDS SUMMARY | 2022-03-08 12:43 | XMS_ITS | Encounter Summary ---
:1985 Author Organization [employer] Address [address] [place] [address] Care Team Providers Name Role Phone Leela Ruano MD Primary Care Provider Reason for Visit Reason Comments Referral [facility] TSH/ Encounter Details Date Type Department Care Team Description 11/15/2021 Telephone [facility] 3800 Nurse, P3800 End Referral Endocrinology [address] ([facility] [address] [address] [place] [address] Social History Tobacco Use Types Packs/Day [...] documented as of this encounter Nursing Notes Thang Mott - 11/15/2021 9:47 AM CDT Received Referral for patient to be seen for Low TSH and from Dr. Karen Rai. Records sent to [facility] and appointment is scheduled. Patient did notify me that she had GDM with her last and she is 20 weeks. Next Saturday she carlos do the test and if she is GDM again she will call back to move this appointment up to a soonerdate. Future Appointments Date Time Provider Department Center 12/06/2021 1:00 PM Emma Branham MD P3800 END PN P3800 documented in this encounter Plan of Treatment Not on filedocumented as of this encounter Visit Diagnoses Not on filedocumented in this encounter Care Teams Chain Maker Machine Relationship Specialty Start Date End Date Leela Ruano MD PCP - General 10/31/10 [address] [place] [address] documented as of this encounter
--- OUTSIDE RECORDS SUMMARY | 2022-03-08 12:43 | XMS_ITS | Encounter Summary ---
:1985 Author Organization [employer] Address [address] [place] [address] Care Team Providers Name Role Phone Unassigned, Provider Primary Care Provider Unavailable Encounter Details Date Type Department Care Team Description 04/22/2007 Hospital Encounter [facility] 6[address] Casa Reyes MD [address] [place], [place] [id number] Endoscopy Casa Reyes MD [address] [place], [place] [phone] [facility] [place], [place] [id number] Social History Tobacco Use Types Packs/Day Years Used Date Smoking Tobacco: Never Assessed Sex Assigned at Date Recorded Not on file documented as of this encounter Medications at Time of Discharge Medication Sig Dispensed Refills Start Date End Date Levonorg-Eth Estrad Take 1 tablet by 84 3 04/14/2007 01/06/2009 Triphasic (TRIVORA, 28,) mouth daily (every 24 tablet hours). LW Addl Instr:Follow package directions. unknown medication Indications: PN: 0 04/14/2007 11/20/2009 unknown medication Indications: PN: 0 04/14/2007 09/12/2015 documented as of this encounter Procedure Notes Casa Reyes MD - 04/22/2007 12:01 AM CDT Procedures signed by Casa Reyes MD at 04/22/07 1429 Author: Casa Reyes MD Service: (none) Author Type: Physician Filed: 11/17/10 2212 Note Time: 04/22/07 1335 Status: Signed Case Management Assistant: Casa Reyes MD (Physician) Patient Name: Cassidy Ruiz Procedure: Upper GI endoscopy Indications: Dyspepsia Providers: Casa Reyes MD, Carlota Irwin RN Referring MD: Lis Ro MD Medicines: Midazolam 4 mg IV, Fentanyl 100 micrograms IV, Benzocaine spray Complications: No immediate complications Procedure: After obtaining informed consent, the endoscope was passed under direct vision. Throughout the procedure, the patient's blood pressure, pulse, and oxygen saturations were monitored continuously. The GIF-[id number] gastroscope was introduced through the mouth, and advanced to the second part of duodenum. The upper GI endoscopy was accomplished without difficulty. The patient tolerated the procedure well. Findings: The examined esophagus was normal. The entire examined stomach was normal. The examined duodenum was normal. Impression: - Normal esophagus. - Normal stomach. - Normal examined duodenum. Recommendation: - Discharge patient to home (ambulatory). - Return to primary care physician. CPT4 Code(s): 43702, Upper gastrointestinal endoscopy including esophagus, stomach, and either the duodenum and/or jejunum as appropriate; diagnostic, with or without collection of specimen(s) by brushing or washing (separate procedure) ICD9 Code(s): 536.8, Dyspepsia and other specified disorders of function of stomach The codes documented in this report are preliminary and upon medical coder review may be revised to meet current compliance requirements. Casa Reyes MD Signed Date: 04/22/2007 02:29:28 PM Number of Addenda: 0 This document has been electronically signed. Note generated on 04/22/2007 1:36:23 PM documented in this encounter Plan of Treatment Not on filedocumented as of this encounter Visit Diagnoses Not on filedocumented in this encounter Care Teams Almond Roaster Relationship Specialty Start Date End Date Unassigned, Provider PCP - General 12/02/01 10/30/[address] [place] [address] documented as of this encounter
--- OUTSIDE RECORDS SUMMARY | 2022-03-08 12:43 | XMS_ITS | Encounter Summary ---
:1985 Author [facility] Address [address], [place] [address] Care Team Providers Name Role Phone Leela Ruano MD Primary Care Provider Encounter Details Date Type Department Care Team Description 10/20/2007 Office Visit [facility] [place] [address] [address] [place] [address] (Wo rk) Social History Tobacco Use Types Packs/Day Years Used Date Smoking Tobacco: Never Assessed Sex Assigned at Date Recorded Not on file documented as of this encounter Last Filed Vital Signs Vital Sign Reading Time Taken Comments Blood Pressure 117/84 10/20/2007 12:56 PM CDT Pulse 97 10/20/2007 12:56 PM CDT Temperature 36.3 ??C (97.3 ??F) 10/20/2007 12:56 PM ORAL C: 36.3 C CDT Respiratory Rate 14 10/20/2007 12:56 PM CDT Oxygen Saturation 97% 10/20/2007 12:56 PM CDT Inhaled Oxygen Concentration - - Weight - - Height - - Body Mass Index - - documented in this encounter Progress Notes Ramiro De Santiago MD - 10/20/2007 12:01 AM CDT Progress Notes signed by Ramiro De Santiago MD at 11/23/07 1603 Author: Ramiro De Santiago MD Service: (none) Author Type: Physician Filed: 11/18/10 0306 Note Time: 10/20/07 0001 Status: Signed Retail Manager: Ramiro De Santiago MD (Physician) NAME: CASSIDY KIRKLAND MR#: [id number] ACCT: [id number] VISIT: [id number] DICTATING CLINICIAN: RAMIRO DE SANTIAGO MD JOB: [id number] LOC: 520 CLINIC PROGRESS NOTE DATE OF VISIT: 10/20/2007 SUBJECTIVE: CHIEF COMPLAINT: Recheck sinus infection. HPI: This pleasant 22-year-old comes in today for recheck of a sinus infection. Patient was seen a week ago, diagnosed with sinusitis. She was placed on Zithromax and it did not help at all. She feels like she is getting worse rather than better. She has a sinus headache, a lot of pressure, nasal congestion, and sore throat. Her ears are bothering her, she has chest congestion and cough. She says she has been sick for a total of 2 weeks. PAST MEDICAL HISTORY: Tension headache and acne. PAST SURGICAL HISTORY: None. MEDICATIONS: Reviewed, see LastWord. ADR/ALLERGIES: PENICILLIN, WHICH CAUSES HER LIPS TO SWELL. SOCIAL HISTORY: She is a smoker. OBJECTIVE: VS: BP: 117/84. T: 97.3. P: 97. R: 14. O2 sat: 97% on room air. GENERAL: Alert and oriented; in no apparent distress. Tympanic membranes ??show no sign of infection??. Sinuses are tender in the maxillary region. Nares reveal swollen, erythematous turbinates. Oropharynx is pink and moist, postnasal drip. LUNGS: Clear. HEART: Regular. ABDOMEN: Soft and nontender. EXTREMITIES: No rashes or cyanosis. ASSESSMENT: Sinusitis. PLAN: 1. Doxycycline 100 mg, 1 p.o. b.i.d. x10 days. Please take with a full glass of water, wait 30 minutes before lying down. Patient denies . 2. Nasonex nasal spray, 2 puffs each morning for the next 2-3 weeks. Certainly follow up if symptoms persist or worsen. [id number] C: 10/21/07 06:18 DOCUMENT: [id number] documented in this encounter Plan of Treatment Not on filedocumented as of this encounter Visit Diagnoses Not on filedocumented in this encounter Care Teams Hvac Mechanical Engineer Relationship Specialty Start Date End Date Leela Ruano MD PCP - General 10/31/10 [address] [place] [address] documented as of this encounter
--- OUTSIDE RECORDS SUMMARY | 2022-03-08 12:43 | XMS_ITS | Encounter Summary ---
:1985 Author Organization [facility] Address [address] [place] [address] Care Team Providers Name Role Phone Leela Ruano MD Primary Care Provider Encounter Details Date Type Department Care Team Description 02/12/2008 PN Conversion Only [facility] Joslyn Barreto [address] [employer] [facility] [place] [address] [facility] [address] [place], [place] [address] Social History Tobacco Use Types Packs/Day Years Used Date Smoking Tobacco: Never Assessed Sex Assigned at Date Recorded Not on file documented as of this encounter Plan of Treatment Not on filedocumented as of this encounter Procedures Procedure Name Priority Date/Time Associated Comments Diagnosis URINALYSIS Routine 02/12/2008 10:26 Results for this ROUTINE(MICRO IF POS) AM CDT proced ure are in the results section. URINALYSIS Routine 02/12/2008 10:26 Results for this MICROSCOPIC AM CDT procedure are i n the results section. documented in this encounter Results (ABNORMAL) Urinalysis Routine(Micro If Pos) (02/12/2008 10:26 AM CDT) [facility] Method Time Signature Turbidity Cloudy (A) No normal HP CONVERSION range pH Urine 6.5 4.5 - 7.5 HP CONVERSION Protein Urine 30 mg/dL Neg-Trac HP CONVERSION (A) Glucose, Negative Neg-Trac HP CONVERSION Qualitative U Ketones Negative Negative HP CONVERSION U BILI Negative Negative HP CONVERSION Blood Urine Large (A) Negative HP CONVERSION Nitrite Urine Positive Negative HP CONVERSION (A) Leukocyte Large (A) Negative HP CONVERSION Esterase Urine Urobilinogen Negative 0.2 - 1.0 HP CONVERSION Urine U Specific 1.025 1.005 - 25 HP CONVERSION [place] Specimen (Source) Anatomical Collection Method Collection Time Re ceived Time Location / / Volume Laterality 02/12/2008 10:26 AM CDT Joslyn Barreto PA-C LAB_1 Performing Organization Address City/[facility] Phon e Number HP CONVERSION (ABNORMAL) Urinalysis Microscopic (02/12/2008 10:26 AM CDT) [facility] gist Method Time Signature White Blood Packed (A) 0 - 3 HP CONVERSION Cells Urine Red Blood Packed (A) 0 - 2 HP CONVERSION Cells Urine Bacteria Urine Many (A) None HP CONVERSION Specimen (Source) Anatomical Collection Method Collection Time Re ceived Time Location / / Volume Laterality 02/12/2008 10:26 AM CDT Joslyn Barreto PA-C LAB_1 Performing Organization Address City[facility] Phon e Number HP CONVERSION documented in this encounter Visit Diagnoses Not on filedocumented in this encounter Care Teams Bread Dumper Relationship Specialty Start Date End Date Leela Ruano MD PCP - General 10/31/10 [address] [place] [address] documented as of this encounter
--- OUTSIDE RECORDS SUMMARY | 2022-03-08 12:43 | XMS_ITS | Encounter Summary ---
:1985 Author Organization [facility] Address [address] [address] Care Team Providers Name Role Phone Leela Ruano MD Primary Care Provider Reason for Visit Reason Onset Date Comments Sore Throat 01/05/2017 Encounter Details Date Type Department Care Team Description 01/05/2017 Telephone [facility] Leela Gomes MD Sore Throat [address] [address] [place] [address] [place] [address] [phone] (Wo rk) Social History Tobacco Use Types [...] documented as of this encounter Nursing Notes Oanh Rothman RN - 01/05/2017 3:26 PM CDT Cassidy calling for results of Strep culture Advised her the 24 hour culture is negative but will be checked again at 48 hours Advised her to increase fluids and gargle with warm salt water Also advised we only call positive Streps but she can callback if she is feels she wants to double check Graciela Mehta - 01/05/2017 3:22 PM CDT Pt calling requesting a nurse regarding her sore throat documented in this encounter Plan of Treatment Not on filedocumented as of this encounter Visit Diagnoses Not on filedocumented in this encounter Care Teams Floor Layer Helper Relationship Specialty Start Date End Date Leela Ruano MD PCP - General 10/31/10 [address] [address] [place] [address] documented as of this encounter
--- OUTSIDE RECORDS SUMMARY | 2022-03-08 12:43 | XMS_ITS | Encounter Summary ---
:1985 Author Organization [employer] Address [address] [place] [address] Care Team Providers Name Role Phone Leela Ruano MD Primary Care Provider Encounter Details Date Type Department Care Team Description 08/22/2007 Office Visit [facility] [place] [address] [place] [address] Social History Tobacco Use Types Packs/Day Years Used Date Smoking Tobacco: Never Assessed Sex Assigned at Date Recorded Not on file documented as of this encounter Last Filed Vital Signs Vital Sign Reading Time Taken Comments Blood Pressure 126/76 08/22/2007 1:10 PM ENTRY LEVEL FINANCE Pulse 96 08/22/2007 1:10 PM ENTRY LEVEL FINANCE Temperature 36.7 ??C (98.1 ??F) 08/22/2007 1:10 C: 36.7 C Si multaneous PM ENTRY LEVEL FINANCE filing. User may not have seen previo us data. Respiratory Rate 16 08/22/2007 1:10 PM ENTRY LEVEL FINANCE Oxygen Saturation - - Inhaled Oxygen - - Concentration Weight - - Height - - Body Mass Index - - documented in this encounter Progress Notes Sandie Reagan MD - 08/22/2007 12:01 AM CST Progress Notes signed by Sandie Reagan MD at 09/22/07 2456 Author: Sandie Reagan MD Service: (none) Author Type: Physician Filed: 11/18/10 0047 Note Time: 08/22/07 0001 Status: Signed Audio Visual Coordinator: Sandie Reagan MD (Physician) NAME: CASSIDY KIRKLAND MR#: [id number] ACCT: [id number] VISIT: [id number] DICTATING CLINICIAN: SANDIE REAGAN MD JOB: [id number] LOC: 520 CLINIC PROGRESS NOTE DATE OF VISIT: 08/22/2007 SUBJECTIVE: This 22-year-old female comes in with concern for having strep throat. She has had a mild sore throat for the past few days. She has felt feverish with some chills. Maybe a little runny nose or cough noted. She has been exposed to a case of strep. PAST MEDICAL HISTORY: She is a smoker. MEDICATIONS: [id number] medications and . ADR/ALLERGIES: PENICILLIN. OBJECTIVE: VS: BP: 126/76. T: 98. P: 96. R: 16. Exam shows the patient looking good. Throat: Examination of the throat shows mild erythema and no exudate. Ears look normal. NECK: Supple. There are a few enlarged lymph nodes palpable in submandibular areas. LUNGS: Clear. CARDIOVASCULAR: Regular rate and rhythm. Normal S1 and S2. ASSESSMENT: Pharyngitis, cervical adenitis. PLAN: Most probably, this is viral in origin but because of inflamed enlarged lymph nodes, I did give her a prescription for E.E.S. 400 mg p.o. t.i.d. for 10 days if worsening symptoms is noted. NOTE: Her rapid strep test is negative today. She denies having any exposure to mono. Should be rechecked if worsening or no improvement. [id number] C: 08/23/07 16:04 DOCUMENT: [id number] Y LEVEL FINANCE documented in this encounter Plan of Treatment Not on filedocumented as of this encounter Visit Diagnoses Not on filedocumented in this encounter Care Teams Bank Cashier Relationship Specialty Start Date End Date Leela Ruano MD PCP - General 10/31/10 [address] [place] [address] documented as of this encounter
--- OUTSIDE RECORDS SUMMARY | 2022-03-08 12:43 | XMS_ITS | Encounter Summary ---
:1985 Author Organization [employer] Address [address] [place] [address] Care Team Providers Name Role Phone Leela Ruano MD Primary Care Provider Reason for Visit Reason Comments LAB RESULTS Encounter Details Date Type Department Care Team Description 12/13/2021 Telephone [facility] [address] Emma Branham MD LAB RESULTS Endocrinology [address] [place] [address] [place], [place] [address] [phone] Social History Tobacco Use Types Packs/Day Years [...] documented as of this encounter Nursing Notes Yane Mott - 12/13/2021 11:12 AM CDT Received lab results form [facility], placed in PPTV mailbox to review documented in this encounter Plan of Treatment Not on filedocumented as of this encounter Visit Diagnoses Not on filedocumented in this encounter Care Teams Gambling Broker Relationship Specialty Start Date End Date Leela Ruano MD PCP - General 10/31/10 [address] [place] [address] documented as of this encounter
--- OUTSIDE RECORDS SUMMARY | 2022-03-08 12:43 | XMS_ITS | Encounter Summary ---
:1985 [facility] Address [address] [place] [address] Care Team Providers Name Role Phone Leela Ruano MD Primary Care Provider Encounter Details Date Type Department Care Team Description 09/04/2007 Office Visit [facility] [place] [address] [address] [place] [address] [place] [address] [phone] (Wo rk) Social History Tobacco Use Types Packs/Day Years Used Date Smoking Tobacco: Never Assessed Sex Assigned at Date Recorded Not on file documented as of this encounter Progress Notes Leela Ruano MD - 09/04/2007 12:01 AM CST H&P signed by ARIANNA Pabon at 09/09/07 1907 Author: ARIANNA Pabon Service: (none) Author Type: Physician Filed: 11/18/10 0106 Note Time: 09/04/07 0001 Status: Signed Dock Hand: ARIANNA Pabon (Physician) NAME: CASSIDY KIRKLAND MR#: [id number] ACCT: [id number] VISIT: [id number] DICTATING CLINICIAN: ARIANNA PABON JOB: [id number] LOC: 502 CLINIC PHYSICAL DATE OF VISIT: 09/04/2007 SUBJECTIVE: Cassidy is a 22-year-old woman who comes in today for a physical. She is accompanied by her mom. One of her concerns today is that in the last few months she has had at least 2 or 3 episodes of what appeared to be anxiety in which she felt very nervous, had some stomach pains, and found it was difficult to breathe. She believes that she felt that her heart raced a bit with it. This happened in the weeks around her breakup with her boyfriend of 1-1/2 years. She notes that in the last month she has had no further episodes. Her mother's concern about it is that she was misdiagnosed herself with anxiety attacks many years ago and was later found to have supraventricular tachycardia and she is on treatment for it. She wondered if Cassidy is having the same problem. Cassidy's past medical history is negative for any chronic medical conditions. She is on the control pill and wants to have a refill of it. She has had some tension headaches in the past and acne vulgaris. CURRENT MEDICATIONS: Trivora 28 one a day. ADR/ALLERGIES: NO KNOWN DRUG ALLERGIES. REVIEW OF SYSTEMS: Weight has been stable. Tries to make healthy food choices. Bowel movements are regular. Does get a regular withdrawal bleed in the control pill. Does not report any other vaginal discharge or any recent bladder infections. Sleep pattern is generally good, energy levels are good. The rest of the complete review of systems is negative. 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 Is living at home with her parents. Smokes about 5 cigarettes a day, is not really interested in quitting. Uses occasional alcohol. Does not do any regular exercise at this time. She has reduced her caffeine intake in the last few months. FAMILY HISTORY: One brother who is healthy. Parents are in good health. Mom with a history of supraventricular tachycardia. Cassidy needs a tetanus booster. OBJECTIVE: VS: BP: 118/74. P: 84 a minute, regular, good volume. Ht.: 5 ft. 5 in. Wt: 123 lb. Pleasant young woman, looks well. HEENT: Pupils equal and reactive to light. Extraocular movements are intact. Ear canals clear, TMs look good. Oropharynx clear. Good dentition. NECK: Supple, no adenopathy or thyromegaly noted. BREASTS: Soft, symmetric, nontender, no masses, lumps or nipple discharge noted. No axillary adenopathy present. CHEST: Clear to auscultation with equal breath sounds in both right and left lung thompson. HEART: Regular rate and rhythm, no added sounds or murmurs heard. ABDOMEN: Soft, nontender, no hepatosplenomegaly noted, no masses appreciated. PELVIC: Healthy-appearing urethra, meatus, and vaginal mucosa. Scant whitish vaginal discharge present. Cervix nulliparous. Uterus anterior, nontender. No adnexal masses or tenderness noted. RECTAL: No obvious hemorrhoids. EXTREMITIES: No edema. Peripheral pulses present. SKIN: No abnormal skin lesions. MUSCULOSKELETAL: Exam negative. NEUROLOGICAL: Exam negative. LABS: Hemoglobin and TSH checked today. A Pap smear was done. Will also check a STD [place]. ASSESSMENT: 1. Physical exam within normal limits. 2. Contraception. Continue on control pills. Refill given. 3. Recent history of episodes of anxiety. I do not believe that this was necessarily related to SVT, it sounds very anxiety driven but will get a baseline EKG. Did advise that if she has any of these episodes occurring again she should go to the emergency room so that we can get an EKG strip of the actual episode. Since the last one was over 4 weeks ago I am not going to schedule her for a Holter monitor at this time. Did recommend that she quit smoking. She was given the Adacel vaccine today. PLAN: See Assessment. GLB:[id number] C: 09/07/07 12:47 DOCUMENT: [id number] [employer] documented in this encounter Plan of Treatment Not on filedocumented as of this encounter Visit Diagnoses Not on filedocumented in this encounter Care Teams Hearing And Speech Assistant Relationship Specialty Start Date End Date Leela Ruano MD PCP - General 10/31/10 [address] [address] [place] [address] documented as of this encounter
--- OUTSIDE RECORDS SUMMARY | 2022-03-08 12:43 | XMS_ITS | Encounter Summary ---
:1985 Author Organization [facility] Address [address] [address] Care Team Providers Name Role Phone Leela Ruano MD Primary Care Provider Reason for Visit Reason Comments Annual Exam Encounter Details Date Type Department Care Team Description 09/12/2015 Office Visit [facility] Leela Ruano [facility] woman exam with routine gynecological exam (Primary Dx); Medicine Cervical cancer screening; [address] [address] [facility] Diabetes mellitus screening; [place] [address] [place], [place] Lipid screening; [phone] [id number] Screening for thyroid disorder Social History Tobacco Use Types Packs/Day Years Used Date Smoking Tobacco: Never Assessed Sex Assigned at Date Recorded Not on file documented as of this encounter Last Filed Vital Signs Vital Sign Reading Time Taken Comments Blood Pressure 120/80 09/12/2015 3:36 PM TRUCK DISPATCHER Pulse 74 09/12/2015 3:36 PM TRUCK DISPATCHER Temperature - - Respiratory Rate - - Oxygen Saturation - - Inhaled Oxygen Concentration - - Weight 62.6 kg (138 lb) 09/12/2015 3:36 PM TRUCK DISPATCHER Height 165.1 cm (5' 5) 09/12/2015 3:36 PM TRUCK DISPATCHER Body Mass Index 22.96 09/12/2015 3:36 PM TRUCK DISPATCHER documented in this encounter Patient Instructions Patient InstructionsFay Segovia LPN - 09/12/2015 4:11 PM CST Please return for fasting lab work. K DISPATCHER documented in this encounter Progress Notes Shannon Tan RN - 09/16/2015 2:59 PM TRUCK DISPATCHER Quick Note: Letter sent. K DISPATCHER Leela Ruano MD - 09/12/2015 7:00 PM CST Preventive Physical Exam: 09/12/2015 SUBJECTIVE: 30 y.o. female for a physical exam. 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 She has been in good health.She went off control pill about 3 months ago.She just celebrated her 30th birthday and she and her are considering starting their family. She currently smokes 6-7 cigarettes a day. Has a prescription of Chantix available to help with smoking cessation. Lost 25 pounds since January 2015. Did this by making better food choices and by exercising regularly Patient Active Problem List Diagnosis ??? Headache Tension [place] History reviewed. No pertinent past medical history. History Substance Use Topics ??? Smoking status: Current Every Day Smoker ??? Smokeless tobacco: Not on file Comment: Smoking History Packs/day: ??? Alcohol Use: Yes Comment: Alcoholic Drinks/day: Amount:1-2 drinks; Freq:2-3/week ; History Social History Narrative . 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 Allergies Allergen Reactions ??? Penicillins Lip swelling Outpatient Prescriptions Prior to Visit Medication Sig ??? [DISCONTINUED] levonorgestrel-ethinyl estradiol (TRIVORA, 28,) 50-30 (6)/75- 40 (5)/125-30(10) per tablet Take 1 tablet by mouth daily (every 24 hours). LW Addl Instr:Follow package directions. ??? [DISCONTINUED] op medications reviewed ??? [DISCONTINUED] patient not taking any chronic medication ??? [DISCONTINUED] piroxicam (FELDENE) 20 mg capsule Take 1 capsule by mouth daily (every 24 hours).LW Addl Instr:Take with food. Indicated for: Arthritis and joint pain and swelling. No facility-administered medications prior to visit. History reviewed. No pertinent family history. Constitutional: negative.No excessive fatigue. Respiratory: negative-no upper respiratory symptoms or cough. Cardiovascular: negative-no palpitations or chest pain or pressure with activity. Gastrointestinal: negative-regular bowel movements. Good appetite. Genitourinary:negative-no urinary symptoms. Her menses occur between a 22-28 day frequency. Behavioral/Psych: negative- no anxiety or depression OBJECTIVE: Vital Signs: height is 5' 5 (1.651 m) and weight is 138 lb (62.596 kg). Her blood pressure is 120/80 and her pulse is 74. , Body mass index is 22.96 kg/(m^2). General: Pleasant female, alert, in NAD. HEENT: PERRLA, EOMI, no icterus or injection. Bilateral TM's, external canals, oropharynx normal. Neck: Supple, without thyromegaly or mass. No LAD. No JVD or carotid bruits. CV: RRR without murmurs, rubs or gallops. 2/4 radial artery and dorsalis pedis pulse bilaterally. Resp: Clear to auscultation without crackles, wheezes or distress. Abdomen: Soft, non-tender, non-distended, without hepatosplenomegaly, masses. Breasts: Breasts appear normal. Symmetrical, nontender, without masses or nipple discharge. No supraclavicular or axillary LAD. Lower Extremities: FROM, normal gait without edema, lesions, or deformity. Pelvic: External normal without lesions. Vagina reveals healthy mucosa with no vaginal or cervical lesions, and no abnormal discharge. Bimanual reveals uterus to be mobile, normal size, shape and consistency. No adenexal masses or tenderness. Rectal: deferred. Neuro: CN II-XII, motor & sensory function all intact. Psychiatric: Alert & oriented with normal affect and insight. Skin- no abnormal skin lesions. ASSESSMENT/PLAN: Cassidy was seen today for annual exam. Diagnoses and associated orders for this visit: Well woman exam with routine gynecological exam-she will return for fasting lab work. Preconception counseling discussed in detail. Would like her to quit smoking with the use of Chantix before she actively tries to get . Cervical cancer screening - Pap Test Order Diabetes mellitus screening - Glucose; Future Lipid screening - Cholesterol Fraction-LDLD If Trig High; Future Screening for thyroid disorder - Thyroid Stimulating Hormone; Future Other Orders - HPV with 16 18 Genotyping No Follow-up on file. The patient was discharged ambulatory and in stable condition. K DISPATCHER documented in this encounter Miscellaneous Notes Miscellaneous - 09/05/2016 9:41 PM CSTNotes Recorded by Shannon Tan RN on 09/16/2015 at 2:59 PMLetter sent. K DISPATCHER Miscellaneous - 09/05/2016 9:41 PM CSTNotes Recorded by Shannon Tan RN on 09/16/2015 at 2:59 PMLetter sent. K DISPATCHER documented in this encounter Plan of Treatment Not on filedocumented as of this encounter Procedures Procedure Name Priority Date/Time Associated Comments Diagnosis PAP TEST ORDER Routine 09/12/2015 4:11 PM Cervical cancer Resu lts for this TRUCK DISPATCHER screening procedure are i n the results section. HPV WITH 16 18 Routine 09/12/2015 4:11 PM Results for this GENOTYPING, TRUCK DISPATCHER procedure are i n CERVICAL/ENDOCERVICA the res ults L section. ANATOMICAL PATH Routine 09/12/2015 4:11 PM Result s for this LIQUID BASED TRUCK DISPATCHER procedure are i n the results section. documented in this encounter Results Pap Smear (09/12/2015 4:11 PM TRUCK DISPATCHER) Specimen (Source) Anatomical Collection Method Collection Time Re ceived Time Location / / Volume Laterality 09/12/2015 4:11 PM TRUCK DISPATCHER Narrative HP CONVERSION - 09/15/2015 4:41 PM TRUCK DISPATCHER FINAL GYNECOLOGICAL CYTOLOGY REPORT Pathology #: [id number] ?Date Obtained: 09/12/2015 ? Date Received: 09/13/2015 INTERPRETATION/RESULTS: Atypical squamous cells of undetermined significance (ASCUS). If requested and applicable, HPV testing wi ll be performed and reported separately, per ACOG guidelines. SPECIMEN ADEQUACY: Satisfactory for Evaluation. ??Endocervi blanca cells/transformation zone component present. Verified on 09/15/2015 ??by NAOMY Justice MD (electronic signature) CLINICAL NOTES: ?Abnormal bleeding: No, LMP: 2/1 0/16, Menstrual status: None ?Apply, Current form of therapy: None apply LIQUID BASED PAP SMEAR SPECIMEN TYPE: ?ROUTINE CERVICAL PAP TEST PLEASE NOTE: The pap smear is a screening test design ed to aid in the detection of cervical cancer and its pre cursor lesions. It is not a diagnostic procedure and raj uld not be used as the sole means of detecting cervical cancer. Both false-positive and false-negative report s may occur. Performed at [facility], [address] [place] [address] Transcriptions 09/05/2016 9:41 PM CSTNotes Recorded by Shannon Tan RN on 09/16/2015 at 2:59 PMLetter sent. Leela Ruano MD LAB_1 Performing Organization Address City/State/ZIP Code Phon e Number HP CONVERSION HPV with 16 18 Genotyping (09/12/2015 4:11 PM TRUCK DISPATCHER) [facility] Method Time Signature HPV High Risk Not Detected HP CONVERSION 16 HPV High Risk Not Detected HP CONVERSION 18 Other HPV Not Detected HP CONVERSION High Risk Not 16/18 Comment: The [facility] HPV Test is a qualitative in v itro test for the detection of Human Papillomavirus in [facility] patient specimens. ??The test utilizes amplifica tion of target DNA by Polymerase Chain Reaction (PCR) and n ucleic acid hybridization for the detection of 14 hi gh-risk (HR) HPV types. The assay tests for high risk typ es (16, 18, 31, 33, 35, 39, 45, 51, 52, 56, 58, 59, 66 and 6 8). NOTE: This test was developed and its pe rformance characteristics determined by [facility] [employer] [facility]. It has not been cleared or approved by [facility]. The laboratory is regulated under CLIA as qualified to perform high-complexity testing. This test is used for clinical purposes. It should not be regarded as investigational or fo r research. Specimen Anatomical Collection Method Collection Time Receive d Time (Source) Location / / Volume Laterality 09/12/2015 4:11 PM 6 4:11 TRUCK DISPATCHER PM TRUCK DISPATCHER Narrative HP CONVERSION - 09/15/2015 1:57 PM TRUCK DISPATCHER Performed at [facility], [facility] [place] [address] CLIA number [id number] Transcriptions 09/05/2016 9:41 PM CSTNotes Recorded by Shannon Tan RN on 09/16/2015 at 2:59 PMLetter sent. Leela Ruano MD LAB_1 Performing Organization Address City/[facility]/ZIP Code Phon e Number HP CONVERSION Pap Test Order (09/12/2015 4:11 PM TRUCK DISPATCHER) [facility] Method Time Signature Pap Smear Collected HP CONVERSION Monolayer tracking test Specimen Anatomical Collection Method Collection Time Receive d Time (Source) Location / / Volume Laterality 09/12/2015 4:11 PM 6 6:34 TRUCK DISPATCHER AM TRUCK DISPATCHER Leela Ruano MD LAB_1 Performing Organization Address City/[facility]/ZIP [facility] Phon e Number HP CONVERSION documented in this encounter Visit Diagnoses Diagnosis Well woman exam with routine gynecologic al exam - Primary Routine gynecological examination Cervical cancer screening Screening for malignant neoplasm of the cervix Diabetes mellitus screening Screening for diabetes mellitus Lipid screening Screening for lipoid disorders Screening for thyroid disorder documented in this encounter Care Teams Manager Control Relationship Specialty Start Date End Date Leela Ruano MD PCP - General 10/31/10 [address] [address] [place] [address] documented as of this encounter
--- OUTSIDE RECORDS SUMMARY | 2022-03-08 12:43 | XMS_ITS | Encounter Summary ---
:1985 Author Organization [employer] Address [address] [place] [address] Care Team Providers Name Role Phone Leela Ruano MD Primary Care Provider Encounter Details Date Type Department Care Team Description 02/12/2008 Office Visit [facility] Joslyn Parra, [address] [employer] [facility] [place] [address] [facility] [phone] [place], [place] [address] Social History Tobacco Use Types Packs/Day Years Used Date Smoking Tobacco: Never Assessed Sex Assigned at Date Recorded Not on file documented as of this encounter Last Filed Vital Signs Vital Sign Reading Time Taken Comments Blood Pressure 121/85 02/12/2008 10:18 AM CDT Pulse 77 02/12/2008 10:18 AM CDT Temperature 36.9 ??C (98.4 ??F) 02/12/2008 10:18 C: 36.9 C S imultaneous AM CDT filing. User may not have seen previo us data. Respiratory Rate 14 02/12/2008 10:18 AM CDT Oxygen Saturation - - Inhaled Oxygen - - Concentration Weight - - Height - - Body Mass Index - - documented in this encounter Progress Notes Joslyn Parra PA-C - 02/12/2008 12:01 AM CDT Progress Notes signed by Joslyn Parra PA-C at 02/16/08 0820 Author: Joslyn Parra PA-C Service: (none) Author Type: Resource Filed: 11/18/10 0552 Note Time: 02/12/08 0001 Status: Signed Yarn Polishing Machine Operator: Joslyn Parra PA-C (Resource) NAME: CASSIDY KIRKLAND MR#: [id number] ACCT: [id number] VISIT: [id number] DICTATING CLINICIAN: JOSLYN PARRA PA-C CONFIRM #: [id number] LOC: 520 CLINIC PROGRESS NOTE DATE OF VISIT: 02/12/2008 SUBJECTIVE: A 22-year-old female complaining for the past 2 days of urinary urgency and frequency. She has never had a bladder infection before. Denies any back pain, temperatures, vaginal discharge. No other symptoms at this time. PAST MEDICAL HISTORY: Healthy. MEDICATIONS: Reviewed by me in patient health profile. ADR/ALLERGIES: REVIEWED BY ME IN PATIENT HEALTH PROFILE. SOCIAL HISTORY: Does not smoke. OBJECTIVE: VS: BP: 121/85. T: 98.5. P: 77. R: 14. Well-developed, pleasant female in no acute distress. Alert and cooperative. The patient, she looks well. She has no CVA tenderness to palpation. LAB RESULTS: As ordered and reviewed by me, urinalysis turbidity was cloudy. There is a large amount of blood, positive nitrites, large leukocyte esterase. ASSESSMENT: UTI. PLAN: Macrobid and Pyridium to take as directed. Advised that if she starts getting severe back pain, high fever, needs to be immediately reseen; otherwise, follow up as needed. LAG:[id number] C: 02/12/08 11:12 CONFIRM #: [id number] documented in this encounter Plan of Treatment Not on filedocumented as of this encounter Visit Diagnoses Not on filedocumented in this encounter Care Teams Licensed Psychologist Manager Relationship Specialty Start Date End Date Leela Ruano MD PCP - General 10/31/10 [address] [address] [place] [address] documented as of this encounter
--- OUTSIDE RECORDS SUMMARY | 2022-03-08 12:43 | XMS_ITS | Encounter Summary ---
:1985 [facility] Address [address] [place] [address] Care Team Providers Name Role Phone Leela Ruano MD Primary Care Provider Reason for Visit Reason Comments Other Encounter Details Date Type Department Care Team Description 04/18/2007 Telephone [facility], Message Other [address] [place] [address] Social History Tobacco Use Types Packs/Day Years Used Date Smoking Tobacco: Never Assessed Sex Assigned at Date Recorded Not on file documented as of this encounter Progress Notes Center, Message - 04/18/2007 11:09 AM CDT Phone Note filed by Flurry at 11/15/10 5719 Author: Flurry Service: (none) Author Type: (none) Filed: 11/15/10435 Note Time: 04/18/07 1109 Status: Signed Camera Maker: Flurry Non -Symptom Message from Front Line Caller Name/Relationship:Cassidy Primary Binder Coverstitch: Rocio Message: Please see previous note fax absence note to [employer]... their fax number is [phone] - the school said they didn't get it... call pt when done. Leather Crafter: Cassidy Best call back number: [phone] Is it OK to leave a confidential message on this voicemail? yes *[id number] Created on 18Apr2007 11:09am by CARINA DELUCA On 18Apr2007 11:23am MARSHAL FLOWERS wrote: refaxed.called pt back and informed her that we refaxed it. she wants to come and supervisor opening and picking a copy as well. OGRAPHIC ARTIST documented in this encounter Plan of Treatment Not on filedocumented as of this encounter Visit Diagnoses Not on filedocumented in this encounter Care Teams Horse Racer Relationship Specialty Start Date End Date Leela Ruano MD PCP - General 10/31/10 [address] [address] [place] [address] documented as of this encounter
--- OUTSIDE RECORDS SUMMARY | 2022-03-08 12:43 | XMS_ITS | Encounter Summary ---
:1985 Author Organization [facility] Address [address] [place] [address] Care Team Providers Name Role Phone Leela Ruano MD Primary Care Provider Encounter Details Date Type Department Care Team Description 01/05/2009 PN Conversion Only [address] [address] [place] [address] Social History Tobacco Use Types Packs/Day Years Used Date Smoking Tobacco: Never Assessed Sex Assigned at Date Recorded Not on file documented as of this encounter Plan of Treatment Not on filedocumented as of this encounter Visit Diagnoses Not on filedocumented in this encounter Care Teams Coil Finisher Relationship Specialty Start Date End Date Leela Ruano MD PCP - General 10/31/[address] [place] [id number] documented as of this encounter
--- OUTSIDE RECORDS SUMMARY | 2022-03-08 12:43 | XMS_ITS | Encounter Summary ---
:1985 Author Organization [employer] Address [address] [address] Care Team Providers Name Role Phone Leela Ruano MD Primary Care Provider Encounter Details Date Type Department Care Team Description 11/20/2009 Office Visit [facility] [address] [address] [place] [address] Social History Tobacco Use Types Packs/Day Years Used Date Smoking Tobacco: Never Assessed Sex Assigned at Date Recorded Not on file documented as of this encounter Last Filed Vital Signs Vital Sign Reading Time Taken Comments Blood Pressure 125/87 11/20/2009 10:49 AM CDT Pulse 82 11/20/2009 10:49 AM CDT Temperature 36.5 ??C (97.7 ??F) 11/20/2009 10:49 AM CDT C: 3 6.5 C Respiratory Rate 20 11/20/2009 10:49 AM CDT Oxygen Saturation - - Inhaled Oxygen Concentration - - Weight - - Height - - Body Mass Index - - documented in this encounter Progress Notes Robert Wild MD - 11/20/2009 12:01 AM CDT Progress Notes signed by Robert Wild MD at 11/22/09 6093 Author: Robert Wild MD Service: (none) Author Type: Physician Filed: 11/18/10 2154 Note Time: 11/20/09 0001 Status: Signed Hall Clerk: Robert Wild MD (Physician) NAME: CASSIDY KIRKLAND MR#: [id number] ACCT: [id number] VISIT: [id number] DICTATING CLINICIAN: Robert Wild MD CONFIRM #: [id number] LOC: 520 CLINIC PROGRESS NOTE DATE OF VISIT: 11/20/2009 SUBJECTIVE: 24-year-old female is noting a burning sensation with pins and needles discomfort on off in both of her forearms and wrist areas. She has noted now with grasping in the right hand will occasionally get weakness. She has not noted any injuries. She has not had symptoms like this in the past. She is now working 2 different jobs, working 7 days a week. 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 ADR/ALLERGIES: NOTED TO PENICILLIN. PAST MEDICAL HISTORY: Negative for asthma or pneumonia or back or neck problems. MEDICATIONS: Include oral contraceptive. SOCIAL HISTORY: Does smoke cigarettes. OBJECTIVE: VS: BP: 120/87. T: 97.7. P: 82. R: 20. A well-nourished and hydrated female. NECK: Has good range of motion. No increased pain in the arms with flexion or with rotation which is full to 90 degrees bilaterally. No cervical percussive or compressive tenderness. No supraclavicular adenopathy. Nontender at the AC joint. Shoulder is without crepitus. There is full flexion, extension ability of both elbows. There is minor nerve root tenderness over the radial nerve at the elbow bilaterally and remarkable tenderness with percussion over both wrist. Held flexion in the wrist gives her some numb type sensation. There is no atrophy or bruising noted. ASSESSMENT: 1. Paresthesias in both arms. 2. Carpal tunnel syndrome with tenosynovitis of both wrists. PLAN: She has some wrist splints that she got from her mother and they fit well and she has been using them at bedtime. We have recommended she continue using them at bedtime and use them also for working activities to help keep her wrist in a neutral position. We have provided carpal tunnel syndrome exercises information for her to begin with, and have prescribed Feldene 20 mg tablet 1 daily with food, and then advising recheck with primary care in 2 weeks to confirm improvement is noted versus need for therapy or additional treatment. Patient information handout regarding tenosynovitis of the wrist was provided as well. BOR:[id number] C: 11/21/09 16:01 CONFIRM #: [id number] documented in this encounter Plan of Treatment Not on filedocumented as of this encounter Visit Diagnoses Not on filedocumented in this encounter Care Teams Utility Porter Relationship Specialty Start Date End Date Leela Ruano MD PCP - General 10/31/10 [address] [place] [place] [address] documented as of this encounter
--- OUTSIDE RECORDS SUMMARY | 2022-03-08 12:43 | XMS_ITS | Encounter Summary ---
:1985 Author Organization [employer] Address [address] [place] [address] Care Team Providers Name Role Phone Leela Ruano MD Primary Care Provider Encounter Details Date Type Department Care Team Description 01/06/2009 PN Conversion Only [place] [facility] [place] Leela Ruano, [address] [facility] [place] [address] [facility] [address] [place] [address] (Wo rk) Social History Tobacco Use Types Packs/Day Years Used Date Smoking Tobacco: Never Assessed Sex Assigned at Date Recorded Not on file documented as of this encounter Plan of Treatment Not on filedocumented as of this encounter Procedures Procedure Name Priority Date/Time Associated Comments Diagnosis SEXUALLY TRANSMITTED Routine 01/06/2009 3:11 PM R esults for this DISEASE PROBE CDT procedure are in the results section. ANATOMICAL PATH Routine 01/06/2009 10:47 Results for this LIQUID BASED AM CDT procedure are i n the results section. documented in this encounter Results Sexually Transmitted Disease Probe (01/06/2009 3:11 PM CDT) [facility] Method Time Signature Sexually SEE TEXT HP CONVERSION Transmitted Disease Probe Comment: Patient: CASSIDY KIRKLAND Sexually Trans Disease Probe ?Collected: ??[id number] ??[id number] Source: ENDOCERV ?Processed: ??[id number] ??[id number] Final Report ------ ?[id number] ??1425 No Chlamydia trachomatis detected by amp lified DNA assay No Neisseria gonorrhoeae detected by amp lified DNA assay The [employer] Amplified DNA assay is laila red by the FDA for non-medicolegal diagnostic testing in the adult population. Specimen (Source) Anatomical Collection Method Collection Time Re ceived Time Location / / Volume Laterality 01/06/2009 3:11 PM CDT Leela Ruano MD LAB_1 Performing Organization Address City/State/ZIP Code Phon e Number HP CONVERSION Pap Smear (01/06/2009 10:47 AM CDT) [facility] Method Time Signature PAP Smear SEE TEXT No normal HP CONVERSION Liquid Based range Comment: Patient: CASSIDY KIRKLAND ? CERVICAL CYTOLOGY REPORT Pathology # ??[id number] ?Date Obtained: ? Date Received: CYTOLOGIC IMPRESSION: Negative for intraepithelial lesion or m alignancy. Fungal organisms identified. Verified 01/11/09 by: ??SN ? (electronic signature) ? AFSHIN TIONAL DATA LMP: CLINICAL HIST LIQUID BASED PAP CERVICAL SPECIMEN ADEQUACY: ?? Satisfactory. ENDOCERVICAL CELLS: ??Present. Specimen (Source) Anatomical Collection Method Collection Time Re ceived Time Location / / Volume Laterality 01/06/2009 10:47 AM CDT Leela Ruano MD LAB_1 Performing Organization Address City/State/ZIP Code Phon e Number HP CONVERSION documented in this encounter Visit Diagnoses Not on filedocumented in this encounter Care Teams Weigher Operator Relationship Specialty Start Date End Date Leela Ruano MD PCP - General 10/31/10 [address] [place] [address] [place] [address] documented as of this encounter
--- OUTSIDE RECORDS SUMMARY | 2022-03-08 12:43 | XMS_ITS | Encounter Summary ---
:1985 Author Organization [employer] Address [address] [place] [address] Care Team Providers Name Role Phone Leela Ruano MD Primary Care Provider Encounter Details Date Type Department Care Team Description 09/04/2007 PN Conversion Only [place] [facility] Leela Ruano, [address] [facility] [place] [address] [facility] [address] [place] [address] (Wo rk) Social History Tobacco Use Types Packs/Day Years Used Date Smoking Tobacco: Never Assessed Sex Assigned at Date Recorded Not on file documented as of this encounter Plan of Treatment Not on filedocumented as of this encounter Procedures Procedure Name Priority Date/Time Associated Comments Diagnosis SEXUALLY TRANSMITTED Routine 09/04/2007 4:31 PM R esults for this DISEASE PROBE CATTLE ALLEY WORKER procedure are in the results section. THYROID STIMULATING Routine 09/04/2007 4:29 PM Re sults for this HORMONE CATTLE ALLEY WORKER procedure are i n the results section. HEMOGLOBIN, BLOOD Routine 09/04/2007 4:29 PM Resu lts for this CATTLE ALLEY WORKER procedure are i n the results section. ANATOMICAL PATH Routine 09/04/2007 8:43 AM Result s for this LIQUID BASED CATTLE ALLEY WORKER procedure are i n the results section. documented in this encounter Results Sexually Transmitted Disease Probe (09/04/2007 4:31 PM CATTLE ALLEY WORKER) [facility] Method Time Signature Sexually SEE TEXT HP CONVERSION Transmitted Disease Probe Comment: Patient: CASSIDY KIRKLAND Sexually Trans Disease Probe ?Collected: ??[id number] ??[id number] Source: ENDOCERV ?Processed: ??[id number] ??[id number] ? 1V Final Report ------ ?[id number] ??1147 No Chlamydia trachomatis detected by amp lified DNA assay No Neisseria gonorrhoeae detected by amp lified DNA assay The Probetec Amplified DNA assay is laila red by the FDA for non-medicolegal diagnostic testing in the adult population. Specimen (Source) Anatomical Collection Method Collection Time Re ceived Time Location / / Volume Laterality 09/04/2007 4:31 PM CATTLE ALLEY WORKER Leela Ruano MD LAB_1 Performing Organization Address City/[facility] Code Phon e Number HP CONVERSION Thyroid Stimulating Hormone (09/04/2007 4:29 PM CATTLE ALLEY WORKER) athologist Signature Thyroid 0.46 0.20 - HP CONVERSION Stimulating 4.50 Hormone uIU/mL Specimen (Source) Anatomical Collection Method Collection Time Re ceived Time Location / / Volume Laterality 09/04/2007 4:29 PM CATTLE ALLEY WORKER Leela Ruano MD LAB_1 Performing Organization Address [facility]/ZIP Code Phon e Number HP CONVERSION Hemoglobin, Blood (09/04/2007 4:29 PM CATTLE ALLEY WORKER) P athologist Signature Hemoglobin 15.1 11.8 - 15.5 HP CONVERSION gm/dL Specimen (Source) Anatomical Collection Method Collection Time Re ceived Time Location / / Volume Laterality 09/04/2007 4:29 PM CATTLE ALLEY WORKER Leela Ruano MD LAB_1 Performing Organization Address City/State/ZIP Code Phon e Number HP CONVERSION Pap Smear (09/04/2007 8:43 AM CATTLE ALLEY WORKER) Patholo gist Method Time Signature PAP Smear SEE TEXT No normal HP CONVERSION Liquid Based range Comment: Patient: CASSIDY KIRKLAND ? CERVICAL CYTOLOGY REPORT Pathology # ??[id number] ?Date Obtained: ? Date Received: CYTOLOGIC IMPRESSION: Negative for intraepithelial lesion or m alignancy. Verified 09/08/07 by: ? (electronic signature) ? AFSHIN TIONAL DATA LMP: CLINICAL HIST LIQUID BASED PAP CERVICAL SPECIMEN ADEQUACY: ?? Satisfactory. ENDOCERVICAL CELLS: ??Absent. Specimen (Source) Anatomical Collection Method Collection Time Re ceived Time Location / / Volume Laterality 09/04/2007 8:43 AM CATTLE ALLEY WORKER Leela Ruano MD LAB_1 Performing Organization Address City/State/ZIP Code Phon e Number HP CONVERSION documented in this encounter Visit Diagnoses Not on filedocumented in this encounter Care Teams Roller Cleaner Relationship Specialty Start Date End Date Leela Ruano MD PCP - General 10/31/10 [address] [place] [address] documented as of this encounter
--- OUTSIDE RECORDS SUMMARY | 2022-03-08 12:43 | XMS_ITS | Encounter Summary ---
:1985 Author Organization [employer] Address [address] [place] [address] Care Team Providers Name Role Phone Leela Ruano MD Primary Care Provider Reason for Visit Reason Comments Pharyngitis CONGESTION, NASAL Encounter Details Date Type Department Care Team Description 10/13/2015 Hospital Encounter [facility], Sore throat; Care Elías S DO Streptococcal pharyngitis [address] [address] [phone] Social History Tobacco Use Types Packs/Day Years Used Date Smoking Tobacco: Never Assessed Sex Assigned at Date Recorded Not on file documented as of this encounter Last Filed Vital Signs Vital Sign Reading Time Taken Comments Blood Pressure 126/83 10/13/2015 3:46 PM CDT Pulse 100 10/13/2015 3:46 PM CDT Temperature 36.8 ??C (98.2 ??F) 10/13/2015 3:46 PM CDT Respiratory Rate 20 10/13/2015 3:46 PM CDT Oxygen Saturation - - Inhaled Oxygen Concentration - - Weight - - Height - - Body Mass Index - - documented in this encounter Medications at Time of Discharge Medication Sig Dispensed Refills Start Date End Date azithromycin (aka Take 2 tablets by 6 tablet 0 10/13/2015 02/03/2016 ZITHROMAX) mouth on day 1, tabletIndications: then take 1 tablet Streptococcal pharyngitis by mouth daily on days 2-5. azithromycin (ZITHROMAX) Take 2 tablets by 6 tablet 0 09/2612/19/2016 250 MG tabletIndications: mouth on day 1, Streptococcal pharyngitis then take 1 tablet by mouth daily on days 2-5. documented as of this encounter ED Notes Elías Lange DO - 10/16/2015 6:56 PM CDT ED Provider Notes signed by Elías Lange DO at 10/18/151706 Author: Elías Lange DO Service: (none) Author Type: Physician Filed: 10/18/151706 Note Time: 10/16/151922 Status: Signed Laryngologist: Elías Lange DO (Physician) NAME: CASSIDY MILLIGAN MR#: [id number] CSN: [id number] AUTHENTICATING CLINICIAN: Elías Lange DO CONFIRM #: [id number] LOC: 520 URGENT CARE PROGRESS NOTE DATE OF VISIT: 10/13/2015 : 1985 CHIEF COMPLAINT: This patient complains of a sore throat for the past 5-6 days with some sinus pain and pressure thatstarted last night. No fever or chills. ALLERGIES: Reviewed on [employer]. MEDICINES: Reviewed on [employer]. PAST MEDICAL HISTORY: Reviewed on [employer]. SOCIAL HISTORY: Reviewed on [employer]. IMMUNIZATIONS: Reviewed on [facility]. ALLERGIES: Penicillin with lip swelling. PHYSICAL EXAM: VITAL SIGNS: Blood pressure 126/83, pulse 100, respirations 20, temperature 98.2. She is awake, alert, nontoxic, well hydrated, and afebrile. She is pleasant, has good mentation. SKIN: Warm and dry without rash, petechiae, or purpura. HEENT: Head is normocephalic. Eyes: PERRLA. Cornea, conjunctivae, sclerae are clear. Lids are normal. Nose is without congestion or rhinitis. Throat is erythematous without exudates. Mucous membranes are moist and pink. Ears: TMs, canals clear and normal. NECK: Soft, supple, with anterior cervical lymphadenopathy. No rigidity, thyromegaly, or masses. LUNGS: Clear to auscultation. Respirations are unlabored. HEART: Regular rate and rhythm without clicks, rubs, or murmurs. DIAGNOSTICS: Rapid strep test was positive. ASSESSMENT: Acute streptococcal pharyngitis. TREATMENT/CLINICAL COURSE: I am placing her on Zithromax 1 Z-Chris. I told her to return in 5 days if not improved, sooner if worse. She is to change out her toothbrush in 3 days so she does not re-infect herself. She was discharged to home in stable condition. LSS:MEDQ C: CONFIRM #: [id number] documented in this encounter Miscellaneous Notes Medication History - Augustin Churchill MD - 10/13/2015 4:14 PM CDT INPATIENT MEDS Encounter Date: 10/13/15 azithromycin (ZITHROMAX) 250 mg tablet Start Date:10/13/15, End Date:-, Frequency:- *No Administrations Recorded documented in this encounter Plan of Treatment Not on filedocumented as of this encounter Procedures Procedure Name Priority Date/Time Associated Diagnosis Comme nts GROUP A STREP STAT 10/13/2015 3:47 PM Sore throat Results for this ANTIGEN SCREEN CDT procedure are in the results section. documented in this encounter Results (ABNORMAL) RAPID STREP GROUP A WAIVED (10/13/2015 3:47 PM CDT) [facility] Method Time Signature Strep A Positive (A) Negative HP CONVERSION Antigen Strep A Throat: HP CONVERSION Source Specimen Anatomical Collection Method Collection Time Receive d Time (Source) Location / / Volume Laterality 10/13/2015 3:47 PM 6 7:58 CDT PM CDT Narrative HP CONVERSION - 10/13/2015 8:00 PM CDT Performed at [facility] [address] [id number] CLIA number [id number] Jack KELLER LAB_1 Performing Organization Address City/State/ZIP Code Phon e Number HP CONVERSION documented in this encounter Visit Diagnoses Diagnosis Sore throat Acute pharyngitis Streptococcal pharyngitis Streptococcal sore throat Triage Assessment Note - Shannon Lea, EMERGENCY WORKER - 10/13/2015 3:46 PM CDT Pt. here for sore throat x 5-6 days, sinus pain and pressure started last night. US PICKER documented in this encounter Care Teams Funeral Home Location Manager Relationship Specialty Start Date End Date Leela Ruano MD PCP - General 10/31/10 [address] [place] [address] [place] [address] documented as of this encounter
--- OUTSIDE RECORDS SUMMARY | 2022-03-08 12:43 | XMS_ITS | Encounter Summary ---
:1985 Author Organization [employer] Address [address] [address] Care Team Providers Name Role Phone Leela Ruano MD Primary Care Provider Encounter Details Date Type Department Care Team Description 08/01/2009 Office Visit [facility] Micaela Buckner PA-C [id number] [place] [id number] (Wo rk) Social History Tobacco Use Types Packs/Day Years Used Date Smoking Tobacco: Never Assessed Sex Assigned at Date Recorded Not on file documented as of this encounter Last Filed Vital Signs Vital Sign Reading Time Taken Comments Blood Pressure 127/82 08/01/2009 12:49 PM MAPLE SYRUP MAKER Pulse 93 08/01/2009 12:49 PM MAPLE SYRUP MAKER Temperature 36.9 ??C (98.4 ??F) 08/01/2009 12:49 PM MAPLE SYRUP MAKER C: 3 6.9 C Respiratory Rate 16 08/01/2009 12:49 PM MAPLE SYRUP MAKER Oxygen Saturation - - Inhaled Oxygen Concentration - - Weight - - Height - - Body Mass Index - - documented in this encounter Progress Notes Micaela Buckner PA-C - 08/01/2009 12:01 AM CST Progress Notes signed by Micaela Buckner PA-C at 08/01/09 1313 Author: Micaela Buckner PA-C Service: (none) Author Type: Physician Computer Help Desk Representative Filed: 11/18/10 5663 Note Time: 08/01/09 0001 Status: Signed Sports Specialist: Micaela Buckner PA-C (Resource) SUBJECTIVE: Cassidy is a 24-year-old female who presents with concern for sore throat x 3 days. She rates the pain 8/10. She is a hoarse voice, runny nose, nasal congestion and sinus pressure. Ears have been intermittent painful also.reports a minimal cough. No fevers. Strap has been going around at work there wants to rule this out today. She tried ibuprofen yesterday with minimal relief. PMH: Unremarkable Adverse Drug Reactions: Penicillin. Medications: Reviewed. See Medication List in [employer]. ROS: No abdominal pain, nausea, or vomiting. No rashes. Complete review of systems was negative SH: Denies smoking OBJECTIVE: Vital Signs : Reviewed; See Flowsheet Charting in [employer]. Temperature: 98.4 P: 93 R: 16 BP: 127/82 General: Patient does appear mildly ill. Nontoxic Eyes: Full EOM, PERRLA, without lesions or injection. Ears: Canals and TM's normal without lesions. Nose: No obvious congestion Sinus: nontender Pharynx: No oral lesions. Moist mucosa. Mild posterior pharyngeal erythema with no injection or cobblestoning noted. Tonsils are 1+ bilaterally. No tonsillar exudate. Uvula is midline. Airway is intact with normal phonation Neck: Supple, without masses, lymphadenopathy or tenderness. Respiratory: Normal respiratory effort. Lungs are clear with good breath sounds. Heart: RR without murmurs, rubs, or gallops. Abdomen: Nontender. No hepatosplenomegaly. Lab: Rapid strep is negative. Strep culture is pending. ASSESSMENT: 1. Pharyngitis, likely viral. PLAN: Suspect viral etiology. We will call if overnight throat culture returns positive. Discussed treatment of viral illnesses, and lack of indication for antibiotics. Encourage nutritious liquids. Use ibuprofen for fever or pain. Encouraged throat lozenges and salt water gargles. Rest at home as needed until symptoms are improving. RTC p.r.n. if not gradually improving. The patient was discharged ambulatory and in stable condition.All questions were answered. *SH~DNS~VirPharyngitis E SYRUP MAKER documented in this encounter Plan of Treatment Not on filedocumented as of this encounter Visit Diagnoses Not on filedocumented in this encounter Care Teams Surveillance Camera Technician Relationship Specialty Start Date End Date Leeal Ruano MD PCP - General 10/31/10 [address] [place] [address] [place] [address] documented as of this encounter
--- OUTSIDE RECORDS SUMMARY | 2022-03-08 12:43 | XMS_ITS | Encounter Summary ---
:1985 Author Organization [employer] Address [address] [address] Care Team Providers Name Role Phone Leela Ruano MD Primary Care Provider Encounter Details Date Type Department Care Team Description 06/01/2009 Office Visit [facility] [place] [address] [address] [place] [address] [place] [address] [phone] Social History Tobacco Use Types Packs/Day Years Used Date Smoking Tobacco: Never Assessed Sex Assigned at Date Recorded Not on file documented as of this encounter Last Filed Vital Signs Vital Sign Reading Time Taken Comments Blood Pressure 121/84 06/01/2009 11:01 AM BREAKFAST HOST Pulse 86 06/01/2009 11:01 AM BREAKFAST HOST Temperature 36.9 ??C (98.4 ??F) 06/01/2009 11:01 C: 36.9 C Simultaneous AM BREAKFAST HOST filing. User may not have seen previo us data. Respiratory Rate 16 06/01/2009 11:01 AM BREAKFAST HOST Oxygen Saturation - - Inhaled Oxygen - - Concentration Weight - - Height - - Body Mass Index - - documented in this encounter Progress Notes Juan J Meyer MD - 06/01/2009 12:01 AM CST Progress Notes signed by Juan J Meyer MD at 06/12/09 0938 Author: Juan J Meyer MD Service: (none) Author Type: Physician Filed: 11/18/10 175 Note Time: 06/01/09 0001 Status: Signed Account Manager Relief: Juan J Meyer MD (Physician) NAME: CASSIDY KIRKLAND MR#: [id number] ACCT: [id number] VISIT: [id number] DICTATING CLINICIAN: Juan J Meyer MD CONFIRM #: [id number] LOC: 520 CLINIC PROGRESS NOTE DATE OF VISIT: 06/01/2009 SUBJECTIVE: 23-year-old complains of sore throat for over 7 days. Complaining of headache and strep exposure a week ago. Review of health habits indicates she is a tobacco user. 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 OBJECTIVE: ASSESSMENT: Pharyngitis and sinusitis. PLAN: Antibiotic coverage of the sinus disease is recommended wait and see prescription. PLAN: VS: BP: 120/84. T: 98. P: 86. R: 16. Conjunctivae clear. Tympanic membranes normal. Nasal mucosa significant congestion. Sinuses draining. Active postnasal drainage. Throat is definitely reddened. There are no significant exudates. Her tonsils are enlarged. Minimal submandibular nodes are noted. Her lung thompson are clear. SKIN: Without rash. Rapid strep testing, though, is negative. TEL:[id number] C: 06/01/09 18:15 CONFIRM #: [id number] KFAST HOST Juan J Meyer MD - 06/01/2009 12:01 AM CST Progress Notes signed by Juan J Meyer MD at 06/12/09 1346 Author: Juan J Meyer MD Service: (none) Author Type: Physician Filed: 11/18/10 175 Note Time: 06/01/09 0001 Status: Signed Account Manager Relief: Juan J Meyer MD (Physician) NAME: CASSIDY KIRKLAND MR#: [id number] ACCT: [id number] VISIT: [id number] DICTATING CLINICIAN: Juan J Meyer MD CONFIRM #: [id number] LOC: 520 CLINIC PROGRESS NOTE DATE OF VISIT: 06/01/2009 SUBJECTIVE: 23-year-old complains of sore throat for over 7 days. Complaining of headache and strep exposure a week ago. Review of health habits indicates she is a tobacco user. 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 OBJECTIVE: VS: BP: 120/84. T: 98. P: 86. R: 16. Conjunctivae clear. Tympanic membranes normal. Nasal mucosa significant congestion. Sinuses draining. Active postnasal drainage. Throat is definitely reddened. There are no significant exudates. Her tonsils are enlarged. Minimal submandibular nodes are noted. Her lung thompson are clear. SKIN: Without rash. Rapid strep testing, though, is negative. ASSESSMENT: Pharyngitis and sinusitis. PLAN: Antibiotic coverage of the sinus disease is recommended wait and see prescription. We will give her a wait and see prescription of Zithromax 500 mg daily for 5 days if her culture is positive or if she has persistent sinus pain after 1 week of illness. TEL:[id number] C: 06/02/09 04:07 CONFIRM #: [id number] KFAST HOST documented in this encounter Plan of Treatment Not on filedocumented as of this encounter Visit Diagnoses Not on filedocumented in this encounter Care Teams Tie Carrier Relationship Specialty Start Date End Date Leela Ruano MD PCP - General 10/31/10 [address] [place] [address] documented as of this encounter
--- OUTSIDE RECORDS SUMMARY | 2022-03-08 12:43 | XMS_ITS | Encounter Summary ---
:1985 Author Organization [facility] Address [address] [place] [address] Care Team Providers Name Role Phone Leela Ruano MD Primary Care Provider Reason for Visit Reason Onset Date Comments Fax 01/25/2017 last PAP Encounter Details Date Type Department Care Team Description 01/25/2017 Telephone [facility] Leela Gomes MD Fax (last PAP) [address] [place] [address] [place] [address] [phone] (Wo rk) Social History Tobacco Use Types [...] documented as of this encounter Nursing Notes Josy Galan 01/25/2017 8:59 AM CDT Results faxed to [phone] Fay Gerber, RN - 01/25/2017 8:43 AM CDT Reason for Call: FAX to DA for VIKRAM Next Steps: Route to Wire Harness Design Engineer (DA) pool. Additional Information: Marcie from [facility] [place] is faxing over a VIKRAM to have the patients most recent PAP results faxed to them. Patient is there for an OB appointment. Their fax # isincluded. Last PAP: 09/12/15. Contact# Marcie- [facility] [place] (Other) [phone] documented in this encounter Plan of Treatment Not on filedocumented as of this encounter Visit Diagnoses Not on filedocumented in this encounter Care Teams Pharmacy Billing Adjudicator Relationship Specialty Start Date End Date Leela Ruano MD PCP - General 10/31/10 [address] [place] [address] documented as of this encounter
--- OUTSIDE RECORDS SUMMARY | 2022-03-08 12:43 | XMS_ITS | Encounter Summary ---
:1985 [facility] Address [address] [place] [address] Care Team Providers Name Role Phone Leela Lopez MD Primary Care Provider Reason for Visit Reason Comments Other Encounter Details Date Type Department Care Team Description 08/13/2008 Telephone [facility], Message Other [address] [place], [place] [address] Social History Tobacco Use Types Packs/Day Years Used Date Smoking Tobacco: Never Assessed Sex Assigned at Date Recorded Not on file documented as of this encounter Progress Notes Center, Message - 08/13/2008 9:09 AM CST Phone Note filed by [facility] at 11/16/10 2942 Author: [facility] Service: (none) Author Type: (none) Filed: 11/16/10 1428 Note Time: 08/13/08908 Status: Signed Caramel Cutter Helper: [facility] Prescription Refill Please provide enough refills to last until patient's next visit. Comment:- Pharmacy Seq #:-[phone] [facility] Street or City:[facility] Clinician Name:Magui LOPEZ Drug Name/Strength:-TRIVORA-28 Sig: Dose/Route/Freq:-TAKE ONE TAB DAILY Quantity & Last Fill:-84 07/15/08 Created on 13Aug2008 9:09am by DAVID MICHELLE On 13Aug2008 12:34pm GRAY JONES wrote: REFILL APPOINTMENT NEEDED Please call patient and schedule appointment within 30 days. Medication has been renewed and faxed to pharmacy for 30 day supply only, per protocol. Comment:-Annual well exam due Aug 2008 (after the ). On 13Aug2008 1:13pm ALPHONSE BARBER wrote: left message on voice mail ER FOLDER OPERATOR documented in this encounter Plan of Treatment Not on filedocumented as of this encounter Visit Diagnoses Not on filedocumented in this encounter Care Teams Ginner Relationship Specialty Start Date End Date Leela Lopez MD PCP - General 10/31/10 [address] [place] [address] documented as of this encounter
--- OUTSIDE RECORDS SUMMARY | 2022-03-08 12:43 | XMS_ITS | Encounter Summary ---
:1985 Author Organization [facility] Address [address] [place] [address] Care Team Providers Name Role Phone Leela Ruano MD Primary Care Provider Encounter Details Date Type Department Care Team Description 11/20/2009 PN Conversion Only [address] [address] [place] [address] Social History Tobacco Use Types Packs/Day Years Used Date Smoking Tobacco: Never Assessed Sex Assigned at Date Recorded Not on file documented as of this encounter Plan of Treatment Not on filedocumented as of this encounter Visit Diagnoses Not on filedocumented in this encounter Care Teams Truck Dispatcher Relationship Specialty Start Date End Date Leela Ruano MD PCP - General 10/31/[address] [place] [address] documented as of this encounter
--- OUTSIDE RECORDS SUMMARY | 2022-03-08 12:43 | XMS_ITS | Encounter Summary ---
:1985 Author Organization [facility] Address [address] [place] [address] Care Team Providers Name Role Phone Leela Ruano MD Primary Care Provider Reason for Visit Reason Comments AMENORRHEA Encounter Details Date Type Department Care Team Description 12/19/2016 Office Visit [facility] Leela Ruano, Amen orrhea (Primary Dx); [place] [address] [place] [address] [place], [place] [phone] (Wo rk) Social History Tobacco Use Types [...] Sign Reading Time Taken Comments Blood Pressure 112/68 12/19/2016 3:48 PM CDT Pulse 74 12/19/2016 3:48 PM CDT Temperature - - Respiratory Rate - - Oxygen Saturation - - Inhaled Oxygen Concentration - - Weight 64.6 kg (142 lb 6.4 oz) 12/19/2016 3:48 PM CDT Height - - Body Mass Index 23.7 09/12/2015 3:36 PM FLEET COORDINATOR documented in this encounter Patient Instructions Patient InstructionsFay Segovia LPN - 12/19/2016 4:00 PM CDT documented in this encounter Progress Notes Leela Ruano MD - 12/19/2016 4:00 PM CDT Date of Service: 12/19/2016 SUBJECTIVE: Cassidy is a 31 y.o. female who comes in today to confirm . She last had her menses on 11/12/16. Usually her menses occurs monthly. Over the past couple of months, she and her have been trying to achieve a . She did a home test on 12/05/16 and it was positive. Does have some breast soreness. She started taking a vitamin daily. She quit smoking completely a week ago. Uses alcohol occasionally. She usually exercises 3-4 times a week using a treadmill and weightlifting. She is not on any chronic medications. Patient Active Problem List Diagnosis ??? Tension headache No past medical history on file. Social History Substance Use Topics ??? Smoking status: Former Smoker Packs/day: 0.50 Years: 16.00 Types: Cigarettes Quit date: 12/12/2016 ??? Smokeless tobacco: Not on file Comment: Smoking History Packs/day: ??? Alcohol use Yes Comment: Alcoholic Drinks/day: Amount:1-2 drinks; Freq:2-3/week ; Social History Social History Narrative . 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 Allergies Allergen Reactions ??? Penicillins PN: Lip swelling Outpatient Medications Prior to Visit Medication Sig ??? [DISCONTINUED] azithromycin (ZITHROMAX) 250 MG tablet Take 2 tablets by mouth on day 1, then take 1 tablet by mouth daily on days 2-5. No facility-administered medications prior to visit. Pertinent items are noted in HPI. OBJECTIVE: Vitals: BP 112/68 Pulse 74 Wt 142 lb 6.4 oz (64.6 kg) LMP 11/12/2016 BMI 23.7 kg/m2 General: 31 y.o. female looks well. Not further examined. Urine test positive. ASSESSMENT/PLAN: Diagnoses and all orders for this visit: Amenorrhea - Test Screen Urine; Future Early stage of patient is congratulated. She is just over 5 weeks . Expected due date will be 08/18/17. She would be contacting [facility] for her 1st OB visit. She has checkedwith her insurance regarding coverage with this group. She will continue the vitamins. Advised avoiding or [id number] medications at this time. She will continue to use a treadmill for exercise but will stop doing the weightlifting. No Follow-up on file. The patient was discharged ambulatory and in stable condition. documented in this encounter Plan of Treatment Not on filedocumented as of this encounter Results Test Screen Urine (12/19/2016 4:36 PM CDT) athologist Signature Urine Positive PN SOFT Test Specimen Anatomical Collection Method Collection Time Receive d Time (Source) Location / / Volume Laterality Urine specimen 12/19/2016 4:36 PM 017 4:36 (specimen) CDT PM CDT Narrative PN SOFT - 12/19/2016 4:36 PM CDT Performed at [facility], [address] [place] [address] CLIA number [id number] Leela Ruano MD LAB_1 Performing Organization Address City/State/ZIP Code Phon e Number PN SOFT [address] [place] [address] documented in this encounter Visit Diagnoses Diagnosis Amenorrhea - Primary Absence of menstruation Early stage of Amenorrhea Absence of menstruation documented in this encounter Care Teams Director Acute Relationship Specialty Start Date End Date Leela Ruano MD PCP - General [phone] [address] documented as of this encounter
--- OUTSIDE RECORDS SUMMARY | 2022-03-08 12:43 | XMS_ITS | Encounter Summary ---
:1985 Author Organization [facility] Address [address], [place] [address] Care Team Providers Name Role Phone Leela Ruano MD Primary Care Provider Encounter Details Date Type Department Care Team Description 12/19/2016 Lab Visit [facility] Amenorrhea [address] [place] [address] Social History Tobacco Use Types [...] Name Priority Date/Time Associated Diagnosis Comme nts TEST Routine 12/19/2016 4:36 PM Amenorrhea Results for this (URINE) CDT procedure are i n the results section. documented in this encounter Results Test Screen Urine (12/19/2016 4:36 PM CDT) P athologist Signature Urine Positive PN SOFT Test Specimen Anatomical Collection Method Collection Time Receive d Time (Source) Location / / Volume Laterality Urine specimen 12/19/2016 4:36 PM 017 4:36 (specimen) CDT PM CDT Narrative PN SOFT - 12/19/2016 4:36 PM CDT Performed at [facility], [address] [facility], [place] [address] CLIA number [id number] Leela Ruano MD LAB_1 Performing Organization Address City/State/ZIP Code Phon e Number PN SOFT [address] [place] [address] [phone] documented in this encounter Visit Diagnoses Diagnosis Amenorrhea Absence of menstruation documented in this encounter Care Teams Geothermal System Installer Relationship Specialty Start Date End Date Leela Ruano MD PCP - General 10/31/10 [address] [place] [address] documented as of this encounter
--- OUTSIDE RECORDS SUMMARY | 2022-03-08 12:43 | XMS_ITS | Encounter Summary ---
:1985 [facility] Address [address] [place] [address] Care Team Providers Name Role Phone Leela Ruano MD Primary Care Provider Encounter Details Date Type Department Care Team Description 08/01/2009 PN Conversion Only [place] CONVERSMicaela Jolley PA-C [address] [employer] [address] [address] [place], [place] [address] (Wo rk) Social History Tobacco Use Types Packs/Day Years Used Date Smoking Tobacco: Never Assessed Sex Assigned at Date Recorded Not on file documented as of this encounter Plan of Treatment Not on filedocumented as of this encounter Procedures Procedure Name Priority Date/Time Associated Diagnosis Comme nts STREP GROUP A Routine 08/01/2009 2:33 PM Results for this ANTIGEN TEST FOUNTAIN ROLLER ASSEMBLER procedure are i n the results section. BETA STREP FOLLOWUP Routine 08/01/2009 2:33 PM Re sults for this FOUNTAIN ROLLER ASSEMBLER procedure are i n the results section. documented in this encounter Results Strep Group A Antigen Test (08/01/2009 2:33 PM FOUNTAIN ROLLER ASSEMBLER) Analysis Performed At Patho logist Time Signature Strep Group A Negative Negative HP CONVERSION Antigen Test Comment: Culture to follow. Specimen (Source) Anatomical Collection Method Collection Time Re ceived Time Location / / Volume Laterality 08/01/2009 2:33 PM FOUNTAIN ROLLER ASSEMBLER Micaela Buckner PA-C LAB_1 Performing Organization Address City/State/[facility] Phon e Number HP CONVERSION Beta Strep Followup (08/01/2009 2:33 PM FOUNTAIN ROLLER ASSEMBLER) P athologist Signature Strep Screen SEE TEXT HP CONVERSION Comment: Patient: CASSIDY KIRKLAND Rapid Strep Follow up Culture ? Collected: ??[id number] ??[id number] Source: Throat ?Processed: ??[id number] ??[id number] Final Report ------ ?[id number] ??[id number] No beta hemolytic Strep group A isolated . Specimen (Source) Anatomical Collection Method Collection Time Re ceived Time Location / / Volume Laterality 08/01/2009 2:33 PM FOUNTAIN ROLLER ASSEMBLER Micaela Buckner PA-C LAB_1 Performing Organization Address [facility] Phon e Number HP CONVERSION documented in this encounter Visit Diagnoses Not on filedocumented in this encounter Care Teams Sales Donor Recruitment Representative Relationship Specialty Start Date End Date Leela Ruano MD PCP - General 10/31/10 [address] [address] [place] [id number] documented as of this encounter
--- OUTSIDE RECORDS SUMMARY | 2022-03-08 12:43 | XMS_ITS | Encounter Summary ---
:1985 Author Organization [facility] Address [address] [address] Care Team Providers Name Role Phone Leela Ruano MD Primary Care Provider Encounter Details Date Type Department Care Team Description 01/06/2009 Office Visit [facility] [address] [address] [place] [address] [place] [address] [phone] (Wo rk) Social History Tobacco Use Types Packs/Day Years Used Date Smoking Tobacco: Never Assessed Sex Assigned at Date Recorded Not on file documented as of this encounter Last Filed Vital Signs Vital Sign Reading Time Taken Comments Blood Pressure 124/86 01/06/2009 1:25 PM CDT Pulse 72 01/06/2009 1:25 PM CDT Temperature - - Respiratory Rate - - Oxygen Saturation - - Inhaled Oxygen Concentration - - Weight 56.7 kg (124 lb 15.7 oz) 01/06/2009 1:25 PM C: 5 6.7kg CDT Height 165.1 cm (5' 5) 01/06/2009 1:25 PM C: 165.1cm CDT Body Mass Index 20.8 01/06/2009 1:25 PM CDT documented in this encounter Progress Notes Leela Ruano MD - 01/06/2009 12:01 AM CDT Progress Notes signed by ARIANNA Love at 01/06/09 1612 Author: ARIANNA Love Service: (none) Author Type: Physician Filed: 11/18/10 7190 Note Time: 01/06/09 0001 Status: Signed Dough Machine Operator: ARIANNA Love (Resource) SUBJECTIVE: 23 year old, who comes in today for a physical. She needs to get her control pill refilled. No particular concerns. Does have some questions about the Mirena IUD.. Past Medical History: Intermittent anxiety. Tension headaches. Past Surgical History: None MEDICATIONS: Trivora 28. ADVERSE DRUG REACTIONS: Penicillin. MANAGER TRAVEL History-, zero, para zero. ROS: Stable weight, regular bowel movements, regular withdrawal bleed. No vaginal discharge. Has not had much headaches recently. Sleep pattern is good..Energy levels are good. The rest of the complete review of systems negative. Family History: Parents are in good health, as well as a younger brother. 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 Has had the same boyfriend for the past year. HABITS: Smokes between 5 to 10 cigarettes a day. Is not ready to quit. Occasional alcohol use. HEALTH CARE MAINTENANCE: . Last tetanus booster 2007, last Pap smear 2007. OBJECTIVE: Pleasant, young woman looks well. Vital Signs : reviewed on LastWord flow sheet Head: Normocephalic. Eyes: PERRLA, full EOM. External exams normal. Ears: Normal pinnae, canals, and TM's. Nose: Patent, without deformity. Throat: Moist mucous membranes without lesions, erythema, or exudate. Neck: Supple, without masses, lymphadenopathy or tenderness.No thyromegaly. BREASTS: Soft , nontender, without any masses. No nipple discharge or axillary adenopathy present. Respiratory: Normal respiratory effort. Lungs are clear with good breath sounds. Heart: RR without murmurs, rubs, or gallops. Abdomen: soft,non-tender,without masses.. EXTREMITIES: Good peripheral pulses, no ankle edema. Full range of motion. SKIN: Warm and moist. No abnormal lesions seen. MUSCULOSKETAL: Unremarkable NEURO: Unremarkable LABS: Pap smear and Chlamydia screen done today. ASSESSMENT: PLAN: Routine, age-appropriate counseling. Refilled the control pill. Gave her information about the Mirena IUD. She will schedule with MANAGER TRAVEL if she is interested in having this done. *SH~DNS~FEMALEPHYS documented in this encounter Plan of Treatment Not on filedocumented as of this encounter Visit Diagnoses Not on filedocumented in this encounter Care Teams Medical Recruiter Relationship Specialty Start Date End Date Leela Ruano MD PCP - General 10/31/10 [address] [address] documented as of this encounter
--- OUTSIDE RECORDS SUMMARY | 2022-03-08 12:43 | XMS_ITS | Encounter Summary ---
:1985 Author Organization [employer] Address [address] [place] [address] Care Team Providers Name Role Phone Leela Ruano MD Primary Care Provider Encounter Details Date Type Department Care Team Description 12/06/2021 Telemedicine [facility] [address] Emma Branham MD Low TSH level Endocrinology [address] (Primary Dx) [address] [place] [address] [id number] [phone] Social History Tobacco Use Types Packs/Day Years [...] documented as of this encounter Progress Notes Emma Branham MD - 12/06/2021 1:00 PM CDT [facility] Department of Endocrinology, Diabetes and Metabolism Clinic Note Date: 12/06/21 Name: Cassidy Thompson Cc: low TSH in This visit was conducted via video. Location of clinician clinic. Location of patient home. HPI: Cassidy Thompson is a 36 y.o. female referred for low TSH in . She is currently 23 weeks gestation. During her , labs were checked: 10/12/21: TSH 0.082, fT4: 0.83 11/22/21: TSH 0.256, fT4: 0.93 As far as symptoms, this has been more rough with more morning sickness (until 21 weeks). More GERD. Low back pain. More emotional. No palpitations. Weight gain what's expected for .No diarrhea. More digital marketing project manager the last couple of weeks. No compressive symptoms. This is her second . No known issues with the first . Mother and other family members with hypothyroidism. Past Medical, Social and Family History, Medications and Allergies: Reviewed Review of Systems: Complete Review of Systems is negative, unless noted in HPI Physical Examination: Vitals: There were no vitals taken for this visit. GENERAL: Healthy, alert and no distress EYES: Eyes grossly normal to inspection. No discharge or erythema, or obvious scleral/conjunctival abnormalities. RESP: No audible wheeze, cough, or visible cyanosis. No visible retractions or increased work of breathing. SKIN: Visible skin clear. No significant rash, abnormal pigmentation or lesions. NEURO: Cranial nerves grossly intact. Mentation and speech appropriate for age. PSYCH: Mentation appears normal, affect normal/bright, judgement and insight intact, normal speech and appearance well-groomed Labs/imaging: Reviewed and relevant values summarized in the HPI. Assessment and Plan: Cassidy Thompson is a 36 y.o. female with low TSH during We discussed that this is likely physiological changes of , not true hyperthyroidism, especially since TSH had improved on the second check. We discussed the mechanisms for this including the role of HCG. Plan is to repeat thyroid labs this month. If TSH worsens, would pursue workup for Graves disease and other causes of intrinsic hyperthyroidism. Total time for the visit was 30 minutes including, but not limited to, izb-rfjh-tq-face time spent reviewing records, counseling, and coordination of care. Emma Branham MD [facility] documented in this encounter Plan of Treatment Scheduled Orders Name Type Priority Associated Diagnoses Order S chedule TSH, Sensitive Lab Routine Low TSH level Expected: , Expires: 06/04/2022 Free T4 Lab Routine Low TSH level Expected: 11/26, Expires: 06/04/2022 documented as of this encounter Visit Diagnoses Diagnosis Low TSH level - Primary Nonspecific abnormal results of thyroid function study documented in this encounter Care Teams Animal Breeder Relationship Specialty Start Date End Date Leela Ruano MD PCP - General 10/31/10 [address] [address] [place] [address] documented as of this encounter
--- OUTSIDE RECORDS SUMMARY | 2022-03-08 12:43 | XMS_ITS | Encounter Summary ---
:1985 Author Organization [facility] Address [address] [place] [address] Care Team Providers Name Role Phone Leela Ruano MD Primary Care Provider Encounter Details Date Type Department Care Team Description 04/22/2007 PN Conversion Only CONV GASTROENTEROLOG Y Casa Reyes MD [address] [place] [address] [phone] (Wo rk) Social History Tobacco Use Types Packs/Day Years Used Date Smoking Tobacco: Never Assessed Sex Assigned at Date Recorded Not on file documented as of this encounter Plan of Treatment Not on filedocumented as of this encounter Visit Diagnoses Not on filedocumented in this encounter Care Teams Principal Systems Architect Relationship Specialty Start Date End Date Leela Ruano MD PCP - General 10/31/10 [address] [place] [address] documented as of this encounter
--- OUTSIDE RECORDS SUMMARY | 2022-03-08 12:44 | XMS_ITS | Encounter Summary ---
:1985 Author Organization [employer] Address [address], [place] [address] Care Team Providers Name Role Phone Leela Ruano MD Primary Care Provider Encounter Details Date Type Department Care Team Description 06/05/2006 Office Visit [facility] Alen Mccall PA-C [address] [facility] [address] [place] [address] [place] [address] [phone] (Wo rk) Social History Tobacco Use Types Packs/Day Years Used Date Smoking Tobacco: Never Assessed Sex Assigned at Date Recorded Not on file documented as of this encounter Last Filed Vital Signs Vital Sign Reading Time Taken Comments Blood Pressure 141/77 06/05/2006 11:12 AM FARMWORKER FUR Pulse 86 06/05/2006 11:12 AM FARMWORKER FUR Temperature 36.7 ??C (98.1 ??F) 06/05/2006 11:12 AM FARMWORKER FUR C: 3 6.7 C Respiratory Rate 16 06/05/2006 11:12 AM FARMWORKER FUR Oxygen Saturation - - Inhaled Oxygen Concentration - - Weight - - Height - - Body Mass Index - - documented in this encounter Progress Notes Alen Mccall PA-C - 06/05/2006 12:01 AM CST Progress Notes signed by Alen Mccall PA-C at 06/21/062009 Author: Alen Mccall PA-C Service: (none) Author Type: Physician Agricultural Commodities Inspector Filed: 11/17/10 1545 Note Time: 06/05/062010 Status: Signed Director Of Radio Services: Alen Mccall PA-C (Physician Agricultural Commodities Inspector) NAME: CASSIDY KIRKLAND MR#: [id number] ACCT: [id number] VISIT: [id number] DICTATING CLINICIAN: ALEN MCCALL PA-C JOB: [id number] LOC: 520 CLINIC PROGRESS NOTE DATE OF VISIT: 06/05/2006 SUBJECTIVE: A 20-year-old female presents to urgent care for evaluation of sore throat, slight cough, symptoms 3-4 days. Some runny nose. No one else sick around her. She has had history of occasional strep up to 7 times in a year but no recent sicknesses. ADR/ALLERGIES: PENICILLIN. MEDICATIONS: See medication list in LastWord. PAST MEDICAL HISTORY: Healthy. OBJECTIVE: VS: BP: 141/77. T: 98.1. P: 86. R: 16. AGE: 20. GENERAL: NAD. HEENT: Head normocephalic. Eyes, sclerae white. Conjunctivae pink. Cornea and lens were clear. Ears: TMs intact with some clear fluid. Nose is patent. Mouth shows some erythema around the uvula and posterior pharynx. No exudates noted. NECK: Show minimal anterior adenopathy. LUNGS: CTA. CV: Regular, rate and rhythm. No clicks, gallops, rubs or murmurs. Rapid strep test was obtained and was negative. ASSESSMENT: pharyngitis. PLAN: Will culture and treat if positive. Push fluids. Soups, saltwater gargles, Tylenol or ibuprofen. Return p.r.n. TJL:[id number] C: 06/06/06 12:29 DOCUMENT: [id number] WORKER FUR documented in this encounter Plan of Treatment Not on filedocumented as of this encounter Visit Diagnoses Not on filedocumented in this encounter Care Teams Compliance Engineer Relationship Specialty Start Date End Date Leela Ruano MD PCP - General [phone] [place] [address] documented as of this encounter
--- OUTSIDE RECORDS SUMMARY | 2022-03-08 12:44 | XMS_ITS | Encounter Summary ---
:1985 Author Organization [facility] Address [address], [place] [address] Care Team Providers Name Role Phone Leela Ruano MD Primary Care Provider Encounter Details Date Type Department Care Team Description 01/10/2006 Office Visit [facility] [place] [address] [address] [place] [address] [place] [address] [phone] (Wo rk) Social History Tobacco Use Types Packs/Day Years Used Date Smoking Tobacco: Never Assessed Sex Assigned at Date Recorded Not on file documented as of this encounter Last Filed Vital Signs Vital Sign Reading Time Taken Comments Blood Pressure 118/68 01/10/2006 1:54 PM CDT Pulse 64 01/10/2006 1:54 PM CDT Temperature - - Respiratory Rate - - Oxygen Saturation - - Inhaled Oxygen Concentration - - Weight 55.8 kg (122 lb 15.9 oz) 01/10/2006 1:54 PM C: 5 5.8kg CDT Height 163.8 cm (5' 4.5) 01/10/2006 1:54 PM C: 163.8cm CDT Body Mass Index 20.79 01/10/2006 1:54 PM CDT documented in this encounter Progress Notes Leela Ruano MD - 01/10/2006 12:01 AM CDT H&P signed by ARIANNA Pabon at 01/15/06 0806 Author: ARIANNA Pabon Service: (none) Author Type: Physician Filed: 11/17/10 1258 Note Time: 01/10/06 0001 Status: Signed Bead Cutter: ARIANNA Pabon (Physician) NAME: CASSIDY KIRKLAND MR: [id number] ACCT: [id number] VISIT: [id number] DICTATING CLINICIAN: ARIANNA PABON JOB: [id number] CLINIC PHYSICAL DATE OF VISIT: 01/10/2006 SUBJECTIVE: Cassidy is a 20-year-old woman who comes in today for a physical. She has been in quite good health over the past year, and really has no particular concerns at this time. She has been on the control pill and would like to have it refilled. She is on Trivora 28, and has been taking this regularly. She does get regular withdraw bleeds with this monthly. Pap smears in the past have been normal. She also does have a history of acne vulgaris, and has been using some topical creams for this. She has not had any surgeries. REVIEW OF SYSTEMS: Stable weight, good appetite. Bowel movements are regular. No urinary symptoms. Does not report any vaginal discharge. Sleep pattern is good. Energy levels are good. No chronic headaches. Moods have been fine. The rest of the complete review of systems negative. SOCIAL HISTORY: Single. Has had a new boyfriend in the last few months. Is currently living at home, but will be moving to an apartment and live with her brother and his in the next several months. Patient is a student at [employer]. 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 She does smoke about one to two cigarettes a day. Plans to quit completely some time in the near future. Uses occasional alcohol. Wears her seat belt. FAMILY HISTORY: Mother is in her early 50s with hypothyroidism. Father is healthy. One brother, healthy. Last tetanus booster 1997. OBJECTIVE: VS: BP: 118/68. P: 64 a minute, regular, good volume. Ht: 64 1/2 in. Wt: 123 lb. A pleasant young woman looks well. HEENT: Pupils are equal and reactive to light. Extraocular movements intact. Ear canals clear. TMs look good. Oropharynx clear. Good dentition. NECK: Supple. No adenopathy or thyromegaly noted. BREASTS: Soft, symmetric, nontender. No masses, lumps, or nipple discharge noted. No axillary adenopathy present. CHEST: Clear to auscultation, with equal breath sounds in both right and left lung thompson. HEART: Regular rate and rhythm. No added sounds or murmurs heard. ABDOMEN: Soft, nontender. No hepatosplenomegaly noted. No masses appreciated. PELVIC: Healthy-appearing urethral meatus and vaginal mucosa. Scant whitish vaginal discharge present. Cervix nulliparous. Uterus small, anterior, nontender. No adnexal masses or tenderness noted. RECTAL: Good sphincter tone into rectum. No rectal masses or hemorrhoids present. EXTREMITIES: No edema. Peripheral pulses present. SKIN: No abnormal skin lesions. MUSCULOSKELETAL: Negative. NEUROLOGICAL: Negative. LABS: Pap smear, as well as STD screen checked today. We will also get a cholesterol screen. ASSESSMENT: Physical exam within normal limits. PLAN: I do go ahead and refill her oral contraceptives. She has no contraindications to this and has been doing well. Did advise the use of condoms to prevent STDs. Did also recommend regular exercise. I also advised that she should set a quit date for smoking cessation. GLB:[id number] C: 01/15/06 05:57 DOCUMENT: [id number] documented in this encounter Plan of Treatment Not on filedocumented as of this encounter Visit Diagnoses Not on filedocumented in this encounter Care Teams Chemical Applicator Relationship Specialty Start Date End Date Leela Ruano MD PCP - General 10/31/10 [address] [address] [place] [address] documented as of this encounter
--- OUTSIDE RECORDS SUMMARY | 2022-03-08 12:44 | XMS_ITS | Encounter Summary ---
:1985 Author Organization [facility] Address [address] [place] [address] Care Team Providers Name Role Phone Leela Ruano MD Primary Care Provider Encounter Details Date Type Department Care Team Description 04/03/2007 PN Conversion Only [facility] [address] [place], [address] [facility] [place] [address] [place] [phone] (Wo rk) Social History Tobacco Use Types Packs/Day Years Used Date Smoking Tobacco: Never Assessed Sex Assigned at Date Recorded Not on file documented as of this encounter Plan of Treatment Not on filedocumented as of this encounter Procedures Procedure Name Priority Date/Time Associated Comments Diagnosis HELICOBACTER PYLORI Routine 04/03/2007 11:50 Resu lts for this IGG AM CDT procedure are i n the results section. URINALYSIS Routine 04/03/2007 11:50 Results for this ROUTINE(MICRO IF POS) AM CDT proced ure are in the results section. URINALYSIS Routine 04/03/2007 11:50 Results for this MICROSCOPIC AM CDT procedure are i n the results section. COMPLETE BLOOD Routine 04/03/2007 11:50 Results f or this COUNT-W/DIFF AM CDT procedure are i n the results section. URINE CULTURE Routine 04/03/2007 11:37 Results fo r this AM CDT procedure are i n the results section. TEST Routine 04/03/2007 11:37 Results f or this (URINE) AM CDT procedure are i n the results section. documented in this encounter Results (ABNORMAL) Complete Blood Count-W/Diff (04/03/2007 11:50 AM CDT) [facility] Method Time Signature White Blood Cell 9.5 3.8 - 11.0 HP CONVERSIO N Count K/cmm Red Blood Cell 4.89 3.70 - HP CONVERSION Count 5.20 m/cmm Hemoglobin 15.5 11.8 - HP CONVERSION 15.5 gm/dL Hematocrit 46.5 (H) 35.0 - HP CONVERSION 46.0 % Mean Corpuscular 95.3 80.0 - HP CONVERSION Volume 100.0 fl Mean Corpuscular 31.8 27.0 - HP CONVERSION Hemoglobin 34.0 pg Mean Corpuscular 33.4 32.0 - HP CONVERSION Hemoglobin Conc 36.5 gm/dL [place] RDW 12.3 11.0 - HP CONVERSION 15.0 % Platelet Count 284 140 - 450 HP CONVERSION k/cmm Differential Auto-Dif No normal HP CONVERSION Verify range Neutrophils 6.6 2.0 - 7.5 HP CONVERSION Absolute Count K/cmm Neutrophil 70.1 50.0 - HP CONVERSION 75.0 % Lymphocyte % 22.1 20.0 - HP CONVERSION 40.0 % Monocyte 5.9 5.0 - 14.0 HP CONVERSION % Eosinophil 1.3 0.0 - 6.0 HP CONVERSION % Basophil % 0.6 0.0 - 2.0 HP CONVERSION % Specimen (Source) Anatomical Collection Method Collection Time Re ceived Time Location / / Volume Laterality 04/03/2007 11:50 AM CDT Jacky Francis MD LAB_1 Performing Organization Address City/State/ZIP Code Phon e Number HP CONVERSION (ABNORMAL) Urinalysis Routine(Micro If Pos) (04/03/2007 11:50 AM CDT) [facility] Method Time Signature Turbidity Clear No normal HP CONVERSION range pH Urine 8.0 4.5 - 7.5 HP CONVERSION Protein Urine Negative Neg-Trac HP CONVERSION Glucose, Negative Neg-Trac HP CONVERSION Qualitative U Ketones Negative Negative HP CONVERSION U BILI Negative Negative HP CONVERSION Blood Urine Trace (A) Negative HP CONVERSION Nitrite Urine Negative Negative HP CONVERSION Leukocyte Negative Negative HP CONVERSION Esterase Urine Urobilinogen Negative 0.2 - 1.0 HP CONVERSION Urine U Specific 1.020 1.005 - 25 HP CONVERSION [place] Specimen (Source) Anatomical Collection Method Collection Time Re ceived Time Location / / Volume Laterality 04/03/2007 11:50 AM CDT Jacky Francis MD LAB_1 Performing Organization Address [facility] Code Phon e Number HP CONVERSION (ABNORMAL) Urinalysis Microscopic (04/03/2007 11:50 AM CDT) Patholo gist Method Time Signature White Blood 0-2/HPF 0 - 3 HP CONVERSION Cells Urine Red Blood 3-4/HPF (A) 0 - 2 HP CONVERSION Cells Urine Bacteria Urine Occassnl (A) None HP CONVERSIO N Epithelial Few Few /HPF HP CONVERSION Cells Specimen (Source) Anatomical Collection Method Collection Time Re ceived Time Location / / Volume Laterality 04/03/2007 11:50 AM CDT Jacky Francis MD LAB_1 Performing Organization Address [facility] Code Phon e Number HP CONVERSION Helicobacter Pylori IGG (04/03/2007 11:50 AM CDT) Patholo gist Method Time Signature Helicobacter Negative Negative HP CONVERSION pylori IgG Comment: No Helicobacter IgG antibody detected. This assay should be used only for patie nts with symptoms suggestive of gastrointest inal disease. Specimen (Source) Anatomical Collection Method Collection Time Re ceived Time Location / / Volume Laterality 04/03/2007 11:50 AM CDT Jacky Francis MD LAB_1 Performing Organization Address [facility] Phon e Number HP CONVERSION Urine Culture (04/03/2007 11:37 AM CDT) [facility]formed [facility] Time Signature Urine Culture SEE TEXT HP CONVERSION Comment: Patient: CASSIDY KIRKLAND Culture, Urine @ ?Collected: ??[id number] ??[id number] Source: Clean Ca ?Processed: ??[id number] ??1137 ? SENS,1V Final Report ------ ?[id number] ??[id number] 10-50,000 CFU/mL mixed gram positive org anisms No further workup @ = URINE CULTURE Performed at ??[address] [facility], [place], [place] ?[address] Specimen (Source) Anatomical Collection Method Collection Time Re ceived Time Location / / Volume Laterality 04/03/2007 11:37 AM CDT Jacky Francis MD LAB_1 Performing Organization Address [facility] Phon e Number HP CONVERSION Test (Urine) (04/03/2007 11:37 AM CDT) [facility] gist Method Time Signature Urine Negative No normal HP CONVERSION Test range Comment: The sensitivity of this assay is 25 mIU/ mL. This test can detect as early as 10-12 days after conception. It may be positive before a first missed menses. A negative result does no t rule out an early . Specimen (Source) Anatomical Collection Method Collection Time Re ceived Time Location / / Volume Laterality 04/03/2007 11:37 AM CDT Jacky Francis MD LAB_1 Performing Organization Address [facility] Phon e Number HP CONVERSION documented in this encounter Visit Diagnoses Not on filedocumented in this encounter Care Teams Hairspring Studder Relationship Specialty Start Date End Date Leela Ruano MD PCP - General 10/31/10 [address] [address] [place] [address] documented as of this encounter
--- OUTSIDE RECORDS SUMMARY | 2022-03-08 12:44 | XMS_ITS | Encounter Summary ---
:1985 Author Organization [facility] Address [address] [place] [address] Care Team Providers Name Role Phone Neva Lopez MD Primary Care Provider Encounter Details Date Type Department Care Team Description 05/04/2004 Office Visit [facility] [place] [address] [address] [place] [address] [place] [address] [phone] (Wo rk) Social History Tobacco Use Types Packs/Day Years Used Date Smoking Tobacco: Never Assessed Sex Assigned at Date Recorded Not on file documented as of this encounter Progress Notes Neva Lopez MD - 05/04/2004 12:01 AM CDT Progress Notes signed by ARIANNA Love at 05/04/042014 Author: ARIANNA Love Service: (none) Author Type: Physician Filed: 11/17/10 0103 Note Time: 05/04/042014 Status: Signed Telephone Answerer: ARIANNA Love (Physician) NAME: CASSIDY KIRKLAND MR: [id number] ACCT: [id number] VISIT: [id number] DICTATING CLINICIAN: NEVA LOPEZ MD JOB: [id number] CLINIC PROGRESS NOTE DATE OF VISIT: 05/04/2004 SUBJECTIVE: Patient is an 18-year-old young woman who comes in today for a followup. She has been on the control pill for the last several months. She is taking Triphasil 21. She notes that she has been getting a regular withdrawal bleed on it and it has been working well for her. She has not noticed any side effects from it. She also did have some problems with tension headaches in the spring of this year and has a prescription for nortriptyline which she uses periodically. She notes that her headaches are much better, only occurring intermittently. She feels well. She completed high school. She is now going to [employer] and is living at home. She plans to transfer to [employer] in a couple of years. She has no other concerns except that she has noticed at times slight pain and achiness in her right forearm associated with a slight numb or tingly feeling. She is right-handed. She does use a keyboard often. REVIEW OF SYSTEMS: Otherwise unremarkable. She exercises regularly. Does not smoke. No change in her family history. OBJECTIVE: VS: BP: 112/68. P: 72 a minute, regular, good volume. Wt: 121 lb. Pleasant young woman, looks well. Examination of the hands revealed good peripheral pulses, negative Tinel sign at the right wrist, good hand hog cooler noted. ASSESSMENT: 1. Contraception, doing well. Continue on her Triphasil. Will follow up in June for her physical and Pap smear. 2. History of headaches, much better. Continue with nortriptyline on an as-needed basis. 3. Intermittent paresthesias of the right hand. May be related to very early carpel tunnel syndrome. Did advise that she should position her forearms and wrists more appropriately when she uses the keyboard. Follow up if this worsens. PLAN: See assessment. GLB:[id number] C: 05/04/04 17:16 DOCUMENT: [id number] documented in this encounter Plan of Treatment Not on filedocumented as of this encounter Visit Diagnoses Not on filedocumented in this encounter Care Teams Autocutter Relationship Specialty Start Date End Date Neva Lopez MD PCP - General 10/31/10 [address] [address] [place] [address] documented as of this encounter
--- OUTSIDE RECORDS SUMMARY | 2022-03-08 12:44 | XMS_ITS | Encounter Summary ---
:1985 Author Organization [employer] Address [address] [place] [address] Care Team Providers Name Role Phone Leela Ruano MD Primary Care Provider Encounter Details Date Type Department Care Team Description 04/03/2007 Office Visit [facility] [place], [address] [facility] [place] [address] [facility] [phone] [place] [address] (Wo rk) Social History Tobacco Use Types Packs/Day Years Used Date Smoking Tobacco: Never Assessed Sex Assigned at Date Recorded Not on file documented as of this encounter Last Filed Vital Signs Vital Sign Reading Time Taken Comments Blood Pressure 146/80 04/03/2007 10:43 AM CDT Pulse 81 04/03/2007 10:43 AM CDT Temperature 36.7 ??C (98.1 ??F) 04/03/2007 10:43 AM ORAL C: 36.7 C CDT Respiratory Rate 16 04/03/2007 10:43 AM CDT Oxygen Saturation - - Inhaled Oxygen Concentration - - Weight - - Height - - Body Mass Index - - documented in this encounter Progress Notes Jacky Francis MD - 04/03/2007 12:01 AM CDT Progress Notes signed by Jacky Francis MD at 04/08/07 0751 Author: Jacky Francis MD Service: (none) Author Type: Physician Filed: 11/17/10 2148 Note Time: 04/03/072010 Status: Signed Property And Supply Officer: Jacky Francis MD (Physician) NAME: CASSIDY KIRKLAND MR#: [id number] ACCT: [id number] VISIT: [id number] DICTATING CLINICIAN: SANTIAGO FRANCIS MD JOB: [id number] LOC: 520 CLINIC PROGRESS NOTE DATE OF VISIT: 04/03/2007 SUBJECTIVE: This is a 21-year-old female presenting with a four month history of abdominal pain, this has been on and off lasting as long as a week. She has had it beginning again this morning. She points over her lower abdomen and says it is sharp, it does not radiate. She does feel bloated. Tends to be worse with smoking and caffeine. Nothing seems to make it better. She has tried some Tums. REVIEW OF SYSTEMS: Negative for fever, chills, nausea, vomiting, no chest pain or shortness of breath, no back pain, urinary symptoms, or vaginal symptoms. Her last menstrual period was two weeks ago and does not seem to be associated with her menses. SOCIAL HISTORY: She is sexually active and does have protected sex. She says she is not worried about STDs. Her last pelvic was over a year ago. She has waited to come in because she has recently gotten health insurance. 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 ADR/ALLERGIES: PENICILLIN. MEDICATIONS: None. PAST HISTORY: Healthy. OBJECTIVE: VS: BP: 146/80. T: 98.1. P: 81. R: 16. GENERAL: No acute distress. LUNGS: Clear to auscultation. HEART: Regular rate and rhythm. No CVA tenderness. ABDOMEN: Flat, soft with epigastric tenderness. No rebound or masses, no guarding, no hepatosplenomegaly. PELVIC EXAM: The patient refused. UA shows trace blood. UPT is negative. White count is 9.5. H. pylori is pending. ASSESSMENT: Abdominal pain. PLAN: I recommended patient to try some Prilosec and follow up with her primary MD for a pelvic exam and further evaluation. If symptoms worsen, change, or not improved she can return; otherwise follow up p.r.n. LW:[id number] C: 04/03/07 13:13 DOCUMENT: [id number] documented in this encounter Plan of Treatment Not on filedocumented as of this encounter Visit Diagnoses Not on filedocumented in this encounter Care Teams Shuttle Car Operator Relationship Specialty Start Date End Date Leela Ruano MD PCP - General 10/31/10 [address] [address] [place] [address] documented as of this encounter
--- OUTSIDE RECORDS SUMMARY | 2022-03-08 12:44 | XMS_ITS | Encounter Summary ---
:1985 Author Organization [facility] Address [address] [place] [address] Care Team Providers Name Role Phone Neva Lopez MD Primary Care Provider Reason for Visit Reason Comments Other Encounter Details Date Type Department Care Team Description 03/13/2004 Telephone [facility], Message Other [address] [place] [address] Social History Tobacco Use Types Packs/Day Years Used Date Smoking Tobacco: Never Assessed Sex Assigned at Date Recorded Not on file documented as of this encounter Progress Notes Aki Arita - 03/13/2004 10:13 AM CDT Phone Note filed by Aki Arita RN at 11/13/10 4547 Author: Aki Arita RN Service: (none) Author Type: Registered Nurse Filed: 11/13/10 3640 Note Time: 03/13/04 1013 Status: Signed Loan Review Manager: Aki Arita RN (Registered Nurse) Mom and patient calling. Pt. has been on Triphasil 28 for about 6 months. Starting the middle of last month she has been bleeding every 2 weeks. Is asking if she should be concerned, does she need to change med? May reach her at [phone]. Goes to the [facility] pharmacy at [phone]. Created on [id number] 10:13am by AKI ARITA On 13Mar2004 10:59am NEVA LOPEZ wrote: I spoke with pt. Rec. starting on Ortho-Novum 135 x 1 packet with 2 refills. Please call in to Pharm. Acknowledged by NEVA LOPEZ on 10:59am On 13Mar2004 11:31am OK MINER wrote: rx called to pharmacy Acknowledged by KO MINER on 11:31am documented in this encounter Plan of Treatment Not on filedocumented as of this encounter Visit Diagnoses Not on filedocumented in this encounter Care Teams Table Cut Off Saw Operator Relationship Specialty Start Date End Date Neva Lopez MD PCP - General 10/31/10 [address] [address] [place] [address] documented as of this encounter
--- OUTSIDE RECORDS SUMMARY | 2022-03-08 12:44 | XMS_ITS | Encounter Summary ---
:1985 Author Organization [facility] Address [address], [place] [address] Care Team Providers Name Role Phone Leela Ruano MD Primary Care Provider Encounter Details Date Type Department Care Team Description 03/29/2005 Office Visit [facility] Debbie Asencio MD [id number] [place] [address] [phone] Social History Tobacco Use Types Packs/Day Years Used Date Smoking Tobacco: Never Assessed Sex Assigned at Date Recorded Not on file documented as of this encounter Last Filed Vital Signs Vital Sign Reading Time Taken Comments Blood Pressure 100/66 03/29/2005 1:09 PM CDT Pulse 60 03/29/2005 1:09 PM CDT Temperature - - Respiratory Rate - - Oxygen Saturation - - Inhaled Oxygen Concentration - - Weight 56.7 kg (124 lb 15.7 oz) 03/29/2005 1:09 PM CDT C: 56.7kg Height - - Body Mass Index - - documented in this encounter Progress Notes Yane Asencio - 03/29/2005 12:01 AM CDT Progress Notes signed by at 05/04/05 1276 Author: Yane Feliciano MD Service: (none) Author Type: (none) Filed: 11/17/10 0711 Note Time: 03/29/05 0001 Status: Signed Dock Operator: Trung Conversion NAME: CASSIDY KIRKLAND MR: [id number] ACCT: [id number] VISIT: [id number] DICTATING CLINICIAN: YANE FELICIANO MD JOB: [id number] CLINIC PROGRESS NOTE DATE OF VISIT: 03/29/2005 SUBJECTIVE: : 1985. Cassidy presents to the clinic today accompanied by her mother for concerns acne. She has noticed it for a total of 2-3 years but it has been worse in the last few months since her control was discontinued. She recently restarted it about a month ago. She also has been under a lot more stress recently and thinks that has contributed to her outbreaks. She has tried Retin-A micro which has been quite helpful but has not used any other topical products that she can recall. She may have been on oral antibiotic too in the past. No other concerns or problems. She has been otherwise healthy. Is up-to-date on Pap and pelvic exam. She would like refills on her control pill but needs a new pill that would be covered by her insurance. MEDICATIONS: Reviewed and updated in Last[facility] today. OBJECTIVE: VS: BP: 100/66. P: 60. Wt: 125. GENERAL: She is pleasant, appears in no acute distress. HEENT: Sclerae are clear. Conjunctivae not injected. Mucous membranes are moist. Examination of the face is notable for pustular papular type acne with some associated erythema. There are a few that are mildly cystic. Most lesions are across the forehead and hair line area, cheeks and jaw line as well. There are some comedones present as well. No acne is noted on the chest or back. 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 PLAN: Recommend continuing with control pill. She was given refills on one that is covered by her insurance. She is to keep up with regular yearly Pap smears. In addition I will start Cleocin, use as directed and also Retin-A micro used as directed. She needs to give this several months. If there is no improvement she should return for reevaluation. Discussed benefits, risks and side effects of medications. LCM:[id number] C: 03/30/05 13:53 DOCUMENT: [id number] HAND documented in this encounter Plan of Treatment Not on filedocumented as of this encounter Visit Diagnoses Not on filedocumented in this encounter Care Teams Educational/Development Assistant Relationship Specialty Start Date End Date Leela Ruano MD PCP - General 10/31/10 [address] [place] [address] documented as of this encounter
--- OUTSIDE RECORDS SUMMARY | 2022-03-08 12:44 | XMS_ITS | Encounter Summary ---
:1985 Author Organization [facility] Address [address] [place] [address] Care Team Providers Name Role Phone Leela Ruano MD Primary Care Provider Reason for Visit Reason Comments Other Encounter Details Date Type Department Care Team Description 03/29/2005 Telephone [facility], Message Other [address] [place] [address] Social History Tobacco Use Types Packs/Day Years Used Date Smoking Tobacco: Never Assessed Sex Assigned at Date Recorded Not on file documented as of this encounter Progress Notes Center, Message - 03/29/2005 2:44 PM CDT Phone Note filed by [employer] at 11/13/102019 Author: Craft Coffee Service: (none) Author Type: (none) Filed: 11/13/102019 Note Time: 03/29/051443 Status: Signed Wireless Telegrapher: Craft Coffee Pt was seen today, was told to check with insurance company to see which OCP would be covered- either Enpres or Trivora would work. Please call into [facility] in [place]- [phone]. Created on 29Mar2005 2:44pm by YOLI THOMAS On 29Mar2005 4:22pm GIGI FELICIANO wrote: ok for trivora, taken as directed, #84 with 1 refill, then needs pap. Acknowledged by GIGI FELICIANO on 1Sep 4:22pm On [id number] 8:19am YOLI THOMAS wrote: Script faxed to pt's pharmacy, given one refill with note that pt will be due for pap. Acknowledged by YOLI THOMAS on 8:19am OSITION ROLL MAKER AND CUTTER documented in this encounter Plan of Treatment Not on filedocumented as of this encounter Visit Diagnoses Not on filedocumented in this encounter Care Teams Nurse Midwife Relationship Specialty Start Date End Date Leela Ruano MD PCP - General 10/31/10 [address] [address] [place] [address] documented as of this encounter
--- OUTSIDE RECORDS SUMMARY | 2022-03-08 12:44 | XMS_ITS | Encounter Summary ---
:1985 Author Organization [facility] Address [address] [place] [address] Care Team Providers Name Role Phone Neva Lopez MD Primary Care Provider Encounter Details Date Type Department Care Team Description 08/16/2004 Office Visit [facility] [place] [address] [place] [address] [place] [address] [phone] (Wo rk) Social History Tobacco Use Types Packs/Day Years Used Date Smoking Tobacco: Never Assessed Sex Assigned at Date Recorded Not on file documented as of this encounter Progress Notes Neva Lopez MD - 08/16/2004 12:01 AM CST H&P signed by ARIANNA Love at 08/18/04 1959 Author: ARIANNA Love Service: (none) Author Type: Physician Filed: 11/17/10 0255 Note Time: 08/16/042010 Status: Signed Cordwainer: ARIANNA Love (Physician) NAME: CASSIDY KIRKLAND MR: [id number] ACCT: [id number] VISIT: [id number] DICTATING CLINICIAN: NEVA LOPEZ MD JOB: [id number] CLINIC PHYSICAL DATE OF VISIT: 08/16/2004 SUBJECTIVE: Cassidy is a 19-year-old young woman who comes in today for her physical. She has been in quite good health over the past several months. Did have a cold a week ago and is getting over it at the present time. CURRENT MEDICATIONS: Triphasil for contraception, would like to continue with it. Menses are regular, occurring on a monthly basis. Pap smears have been normal. Broke up with her boyfriend two weeks ago, they had been together for almost two years. ADR/ALLERGIES: PATIENT'S DRUG ALLERGIES ARE NOTED ON [facility]ST[facility]. REVIEW OF SYSTEMS: Weight is stable. Appetite is good. Tries to eat a healthy diet. Reports minimal headaches. Sleep pattern is good. Energy levels are variable with some fatigue. Did have some symptoms of slight tingling of both hands and is interested in having her thyroid gland checked because of this. The rest of the complete review of systems negative. SOCIAL HISTORY: Single. Is a student at [employer]. Is living at home. Does not smoke or use alcohol. Has one caffeinated beverage a day. Does go for exercise at least twice a week. Does do breast self-exam and wears her seat belt. FAMILY HISTORY: Mother is 49, has hypothyroidism. Father is 50, healthy. One brother, healthy. Last tetanus booster in 1997. OBJECTIVE: VS: BP: 108/78. P: 72 a minute, regular, good volume. Ht: 64-1/2 in. Wt: 118 lb. Pleasant, young woman who looks well. HEENT: Pupils equal and reactive [...] No adnexal masses or tenderness noted. RECTAL: Deferred. No obvious hemorrhoids. EXTREMITIES: No edema. Peripheral pulses present. SKIN: No abnormal skin lesions. MUSCULOSKELETAL: Unremarkable. NEUROLOGICAL: Grossly nonfocal. LABS: Hemoglobin, TSH, Pap smear checked today. ASSESSMENT: 1. Physical exam within normal limits. 2. Contraception. No contraindications for continuing on Triphasil. Prescription written for the next year. Please note that I did do an STD [place] check today along with her Pap smear. PLAN: See assessment. GLB:[id number] C: 08/17/04 09:14 DOCUMENT: [id number] WEDGER documented in this encounter Plan of Treatment Not on filedocumented as of this encounter Visit Diagnoses Not on filedocumented in this encounter Care Teams Script Editor Relationship Specialty Start Date End Date Neva Lopez MD PCP - General 10/31/10 [address] [place] [place] [address] documented as of this encounter
--- OUTSIDE RECORDS SUMMARY | 2022-03-08 12:44 | XMS_ITS | Encounter Summary ---
:1985 Author Organization [facility] Address [address] [place] [address] Care Team Providers Name Role Phone Leela Ruano MD Primary Care Provider Encounter Details Date Type Department Care Team Description 01/10/2006 PN Conversion Only [place] [address] Leela Ruano, [address] [facility] [place] [address] [facility] [place] [phone] (Wo rk) Social History Tobacco Use Types Packs/Day Years Used Date Smoking Tobacco: Never Assessed Sex Assigned at Date Recorded Not on file documented as of this encounter Plan of Treatment Not on filedocumented as of this encounter Visit Diagnoses Not on filedocumented in this encounter Care Teams Breakdown Worker Relationship Specialty Start Date End Date Leela Ruano MD PCP - General 10/31/10 [address] [place] [place] [address] documented as of this encounter
--- OUTSIDE RECORDS SUMMARY | 2022-03-08 12:44 | XMS_ITS | Encounter Summary ---
:1985 Author Organization [facility] Address [address] [place] [address] Care Team Providers Name Role Phone Leela Ruano MD Primary Care Provider Encounter Details Date Type Department Care Team Description 01/09/2006 PN Conversion Only [place] [address] [address] [place] [address] Social History Tobacco Use Types Packs/Day Years Used Date Smoking Tobacco: Never Assessed Sex Assigned at Date Recorded Not on file documented as of this encounter Plan of Treatment Not on filedocumented as of this encounter Visit Diagnoses Not on filedocumented in this encounter Care Teams Intake Nurse Relationship Specialty Start Date End Date Leela Ruano MD PCP - General 10/31/[address] [place] [address] documented as of this encounter
--- OUTSIDE RECORDS SUMMARY | 2022-03-08 12:44 | XMS_ITS | Encounter Summary ---
:1985 Author Organization [facility] Address [address] [place] [address] Care Team Providers Name Role Phone Leela Ruano MD Primary Care Provider Encounter Details Date Type Department Care Team Description 01/10/2006 PN Conversion Only [place] [facility] Leela Ruano, [address] [place] [address] [facility] [place] [address] (Wo rk) Social History Tobacco Use Types Packs/Day Years Used Date Smoking Tobacco: Never Assessed Sex Assigned at Date Recorded Not on file documented as of this encounter Plan of Treatment Not on filedocumented as of this encounter Procedures Procedure Name Priority Date/Time Associated Diagnosis Comme nts CHOLESTEROL, TOTAL Routine 01/10/2006 2:29 PM Res ults for this AND HDL CDT procedure are i n the results section. documented in this encounter Results Cholesterol, Total and HDL (01/10/2006 2:29 PM CDT) Analysis Performed At Patho logist Time Signature Cholesterol/HDL 2.7 No normal HP CONVERSION Ratio Screen range Cholesterol 108 <200 mg/dL HP CONVERSION HDL Cholesterol 40 40 - 60 HP CONVERSION mg/dL Specimen (Source) Anatomical Collection Method Collection Time Re ceived Time Location / / Volume Laterality 01/10/2006 2:29 PM CDT Leela Ruano MD LAB_1 Performing Organization Address City/State/ZIP Code Phon e Number HP CONVERSION documented in this encounter Visit Diagnoses Not on filedocumented in this encounter Care Teams Professor Of Forestry Relationship Specialty Start Date End Date Leela Ruano MD PCP - General 10/31/10 [address] [place] [address] documented as of this encounter
--- OUTSIDE RECORDS SUMMARY | 2022-03-08 12:44 | XMS_ITS | Encounter Summary ---
:1985 Author Organization [facility] Address [address] [place] [address] Care Team Providers Name Role Phone Leela Ruano MD Primary Care Provider Encounter Details Date Type Department Care Team Description 01/10/2006 PN Conversion Only [place] [facility] Leela Ruano, [address] [place] [address] [facility] [place] [address] (Wo rk) Social History Tobacco Use Types Packs/Day Years Used Date Smoking Tobacco: Never Assessed Sex Assigned at Date Recorded Not on file documented as of this encounter Plan of Treatment Not on filedocumented as of this encounter Procedures Procedure Name Priority Date/Time Associated Comments Diagnosis SEXUALLY TRANSMITTED Routine 01/10/2006 3:38 PM R esults for this DISEASE PROBE CDT procedure are in the results section. ANATOMICAL PATH Routine 01/10/2006 2:33 PM Result s for this LIQUID BASED CDT procedure are i n the results section. documented in this encounter Results Sexually Transmitted Disease Probe (01/10/2006 3:38 PM CDT) [facility] Method Time Signature Sexually SEE TEXT HP CONVERSION Transmitted Disease Probe Comment: Patient: CASSIDY KIRKLAND Sexually Trans Disease Probe @ ?Collected: ??[id number] ??[id number] Source: ENDOCERV ?Processed: ??[id number] ??[id number] ? V Final Report ------ ?[id number] ??1359 No Chlamydia trachomatis detected by amp lified DNA assay No Neisseria gonorrhoeae detected by amp lified DNA assay The Probetec Amplified DNA assay is laila red by the FDA for non-medicolegal diagnostic testing in the adult population. It has not been cleared for use in the pediatric population. @ = Sexually Trans Disease Probe Perform ed at ??[address] ?[place] [address] Specimen (Source) Anatomical Collection Method Collection Time Re ceived Time Location / / Volume Laterality 01/10/2006 3:38 PM CDT Leela Ruano MD LAB_1 Performing Organization Address City/State/ZIP Code Phon e Number HP CONVERSION Pap Smear (01/10/2006 2:33 PM CDT) [facility] gist Method Time Signature PAP Smear SEE TEXT No normal HP CONVERSION Liquid Based range Comment: Patient: CASSIDY KIRKLAND ? CERVICAL CYTOLOGY REPORT Pathology # ??[id number] ?Date Obtained: ? Date Received: CYTOLOGIC IMPRESSION: Negative for intraepithelial lesion or m alignancy. Verified 01/22/06 by: ? (electronic signature) Fungal organisms identified. ? AFSHIN TIONAL DATA LMP: ? CLINICAL HIST LIQUID BASED PAP CERVICAL SPECIMEN ADEQUACY: ?? Satisfactory. ENDOCERVICAL CELLS: ??Present. Specimen (Source) Anatomical Collection Method Collection Time Re ceived Time Location / / Volume Laterality 01/10/2006 2:33 PM CDT Leela Ruano MD LAB_1 Performing Organization Address City/State/ZIP Code Phon e Number HP CONVERSION documented in this encounter Visit Diagnoses Not on filedocumented in this encounter Care Teams Nuclear Medical Tech Relationship Specialty Start Date End Date Leela Ruano MD PCP - General 10/31/10 [address] [place] [id number] documented as of this encounter
--- OUTSIDE RECORDS SUMMARY | 2022-03-08 12:44 | XMS_ITS | Encounter Summary ---
:1985 Author Organization [facility] Address [address] [place] [address] Care Team Providers Name Role Phone Leela Ruano MD Primary Care Provider Encounter Details Date Type Department Care Team Description 08/16/2004 PN Conversion Only [place] Leela Ruano, [address] [facility] [place] [address] [facility] [place] [address] (Wo rk) Social History Tobacco Use Types Packs/Day Years Used Date Smoking Tobacco: Never Assessed Sex Assigned at Date Recorded Not on file documented as of this encounter Plan of Treatment Not on filedocumented as of this encounter Procedures Procedure Name Priority Date/Time Associated Comments Diagnosis SEXUALLY TRANSMITTED Routine 08/16/2004 2:15 PM R esults for this DISEASE PROBE PROFESSIONAL POKER PLAYER procedure are in the results section. THYROID STIMULATING Routine 08/16/2004 1:26 PM Re sults for this HORMONE PROFESSIONAL POKER PLAYER procedure are i n the results section. HEMOGLOBIN, BLOOD Routine 08/16/2004 1:26 PM Resu lts for this PROFESSIONAL POKER PLAYER procedure are i n the results section. ANATOMICAL PATH Routine 08/16/2004 7:25 AM Result s for this LIQUID BASED PROFESSIONAL POKER PLAYER procedure are i n the results section. documented in this encounter Results Sexually Transmitted Disease Probe (08/16/2004 2:15 PM PROFESSIONAL POKER PLAYER) [facility] Method Time Signature Sexually SEE TEXT HP CONVERSION Transmitted Disease Probe Comment: Patient: CASSIDY KIRKLAND Sexually Trans Disease Probe @ ?Collected: ??[id number] ??[id number] Source: ENDOCERV ?Processed: ??[id number] ??[id number] ? V Final Report ------ ?[id number] ??[id number] No Chlamydia trachomatis detected by amp lified DNA assay No Neisseria gonorrhoeae detected by amp lified DNA assay @ = Sexually Trans Disease Probe Perform ed at ??[address] [facility] [address] Specimen (Source) Anatomical Collection Method Collection Time Re ceived Time Location / / Volume Laterality 08/16/2004 2:15 PM PROFESSIONAL POKER PLAYER Leela Ruano MD LAB_1 Performing Organization Address City/[facility] Phon e Number HP CONVERSION Thyroid Stimulating Hormone (08/16/2004 1:26 PM PROFESSIONAL POKER PLAYER) athologist Signature Thyroid 0.62 0.20 - HP CONVERSION Stimulating 5.50 Hormone uIU/mL Specimen (Source) Anatomical Collection Method Collection Time Re ceived Time Location / / Volume Laterality 08/16/2004 1:26 PM PROFESSIONAL POKER PLAYER Leela Ruano MD LAB_1 Performing Organization Address [facility]/ZIP Code Phon e Number HP CONVERSION Hemoglobin, Blood (08/16/2004 1:26 PM PROFESSIONAL POKER PLAYER) P athologist Signature Hemoglobin 15.4 11.8 - 15.5 HP CONVERSION gm/dL Specimen (Source) Anatomical Collection Method Collection Time Re ceived Time Location / / Volume Laterality 08/16/2004 1:26 PM PROFESSIONAL POKER PLAYER Leela Ruano MD LAB_1 Performing Organization Address [facility] Code Phon e Number HP CONVERSION Pap Smear (08/16/2004 7:25 AM PROFESSIONAL POKER PLAYER) Patholo gist Method Time Signature PAP Smear SEE TEXT No normal HP CONVERSION Liquid Based range Comment: Patient: CASSIDY KIRKLAND ? CERVICAL CYTOLOGY REPORT Pathology # ??[id number] ?Date Obtained: ? Date Received: CYTOLOGIC IMPRESSION: Negative for intraepithelial lesion or m alignancy. Fungal organisms identified. ? AFSHIN TIONAL DATA LMP: CLINICAL HIST ? 08-06-04 LIQUID BASED PAP CERVICAL SPECIMEN ADEQUACY: ?? Satisfactory. ENDOCERVICAL CELLS: ??Absent. Verified 08/22/04 by: ??LBM ?(electronic signature) Specimen (Source) Anatomical Collection Method Collection Time Re ceived Time Location / / Volume Laterality 08/16/2004 7:25 AM PROFESSIONAL POKER PLAYER Leela Ruano MD LAB_1 Performing Organization Address City/[facility] Code Phon e Number HP CONVERSION documented in this encounter Visit Diagnoses Not on filedocumented in this encounter Care Teams Manufacturing Operations Manager Relationship Specialty Start Date End Date Leela Ruano MD PCP - General 10/31/10 [address] [place] [address] documented as of this encounter
--- OUTSIDE RECORDS SUMMARY | 2022-03-08 12:44 | XMS_ITS | Encounter Summary ---
:1985 Author Organization [facility] Address [address] [place] [address] Care Team Providers Name Role Phone Leela Ruano MD Primary Care Provider Encounter Details Date Type Department Care Team Description 06/05/2006 PN Conversion Only [place] [facility] [place] Alonso Mccall, [address] [address] [facility] [place], [place] [address] [address] [place] [address] [place], [place] [address] (Wo rk) Social History Tobacco Use Types Packs/Day Years Used Date Smoking Tobacco: Never Assessed Sex Assigned at Date Recorded Not on file documented as of this encounter Plan of Treatment Not on filedocumented as of this encounter Procedures Procedure Name Priority Date/Time Associated Diagnosis Comme nts STREP GROUP A Routine 06/05/2006 2:09 PM Results for this ANTIGEN TEST LIQUOR DEPARTMENT MANAGER procedure are i n the results section. BETA STREP FOLLOWUP Routine 06/05/2006 2:09 PM Re sults for this LIQUOR DEPARTMENT MANAGER procedure are i n the results section. documented in this encounter Results Strep Group A Antigen Test (06/05/2006 2:09 PM LIQUOR DEPARTMENT MANAGER) Analysis Performed At Patho logist Time Signature Strep Group A Negative Negative HP CONVERSION Antigen Test Comment: Culture to follow. Specimen (Source) Anatomical Collection Method Collection Time Re ceived Time Location / / Volume Laterality 06/05/2006 2:09 PM LIQUOR DEPARTMENT MANAGER Alonso Mccall PA-C LAB_1 Performing Organization Address City/State/ZIP Code Phon e Number HP CONVERSION Beta Strep Followup (06/05/2006 2:09 PM LIQUOR DEPARTMENT MANAGER) P athologist Signature Strep Screen SEE TEXT HP CONVERSION Comment: Patient: CASSIDY KIRKLAND Rapid Strep Follow up Culture @ ? Collected: ??[id number] ??[id number] Source: Throat ?Processed: ??[id number] ??[id number] Final Report ------ ?[id number] ??[id number] No beta hemolytic Strep group A isolated . @ = Rapid F/U Cult Performed at ??[address] [facility] [place] [address] Specimen (Source) Anatomical Collection Method Collection Time Re ceived Time Location / / Volume Laterality 06/05/2006 2:09 PM LIQUOR DEPARTMENT MANAGER Alonso Mccall PA-C LAB_1 Performing Organization Address City/State/ZIP Code Phon e Number HP CONVERSION documented in this encounter Visit Diagnoses Not on filedocumented in this encounter Care Teams Machine Preservative Filler Relationship Specialty Start Date End Date Leela Ruano MD PCP - General 10/31/10 [address] [place] [address] documented as of this encounter
--- OUTSIDE RECORDS SUMMARY | 2022-03-08 12:44 | XMS_ITS | Encounter Summary ---
:1985 [facility] Address [address] [place] [address] Care Team Providers Name Role Phone Leela Ruano MD Primary Care Provider Reason for Visit Reason Comments Other Encounter Details Date Type Department Care Team Description 04/11/2007 Telephone [facility] Yane Dailey MD Other [address] [address] [place] [address] [place] [address] [phone] (Wo rk) Social History Tobacco Use Types Packs/Day Years Used Date Smoking Tobacco: Never Assessed Sex Assigned at Date Recorded Not on file documented as of this encounter Progress Notes Conversion, [facility] - 04/11/2007 11:09 AM CDT Phone Note filed by [facility] Conversion at 11/15/10406 Author: Trung Conversion Service: (none) Author Type: (none) Filed: 11/15/10406 Note Time: 04/11/071108 Status: Signed Draughtsman: Trung Nguyen Front Line Sx Call Caller Name/Relationship:Cassidy Primary Mash Tub Cooker:Bindu Symptom or request?stomach pain/ work in Is appointment scheduled & when? Tie Knitter Helper:Pt Best call back number:[phone] Is it OK to leave a confidential message on this voicemail? *ECODE~PNSX2 Created on 11Apr2007 11:09am by AYDEN ROSE On 11Apr2007 11:24am LIZ THOMAS wrote: Pt has appt 04-14-07 with for follow up [facility]. Pt knows to go to [facility] if needed before appt. Acknowledged by YANE FELICIANO on 12:09pm ISION AGRICULTURE SPECIALIST documented in this encounter Plan of Treatment Not on filedocumented as of this encounter Visit Diagnoses Not on filedocumented in this encounter Care Teams Merchandising Assistant Relationship Specialty Start Date End Date Leela Ruano MD PCP - General 10/31/10 [address] [place] [address] documented as of this encounter
--- OUTSIDE RECORDS SUMMARY | 2022-03-08 12:44 | XMS_ITS | Encounter Summary ---
:1985 [facility] Address [address], [place] [address] Care Team Providers Name Role Phone Leela Ruano MD Primary Care Provider Reason for Visit Reason Comments Other Encounter Details Date Type Department Care Team Description 12/18/2005 Telephone [facility], Message Other [address] [place], [place] [address] Social History Tobacco Use Types Packs/Day Years Used Date Smoking Tobacco: Never Assessed Sex Assigned at Date Recorded Not on file documented as of this encounter [facility], Message - 12/18/2005 10:12 AM CDT Phone Note filed by [employer] at 11/14/10420 Author: [employer] Service: (none) Author Type: (none) Filed: 11/14/10420 Note Time: 12/18/05 1012 Status: Signed Spa Director: [employer] PRESCRIPTION REFILL: Please provide enough refills to last until patient's next visit. Comment:- Pharm[facility] [place] [facility] Clinician Name:-Bindu Drug Name/Strength:-Triphasil 28 Sig:-Take 1 tab daily. Quantity:-84 Last Refill:-10/05/05 Created on 18Dec2005 10:12am by MARSHA BAH J On 18Dec2005 5:23pm GRAY JONES wrote: REFILL APPOINTMENT NEEDED Please call patient and schedule appointment within 30 days. Medication has been renewed and faxed to pharmacy for 30 day supply only, per protocol. Medication Name:-Triphasil Appointment Type Needed:-Annual Well Exam Comment:- On 19Dec2005 9:46am ALPHONSE BARBER wrote: left message on voice mail. ETO SPECIALIST documented in this encounter Plan of Treatment Not on filedocumented as of this encounter Visit Diagnoses Not on filedocumented in this encounter Care Teams Hospital Intern Relationship Specialty Start Date End Date Leela Ruano MD PCP - General 10/31/10 [address] [place] [address] documented as of this encounter
--- OUTSIDE RECORDS SUMMARY | 2022-03-08 12:44 | XMS_ITS | Encounter Summary ---
:1985 Author Organization [facility] Address [address] [place] [address] Care Team Providers Name Role Phone Leela Ruano MD Primary Care Provider Encounter Details Date Type Department Care Team Description 03/29/2005 PN Conversion Only [address] [address] [place] [address] Social History Tobacco Use Types Packs/Day Years Used Date Smoking Tobacco: Never Assessed Sex Assigned at Date Recorded Not on file documented as of this encounter Plan of Treatment Not on filedocumented as of this encounter Visit Diagnoses Not on filedocumented in this encounter Care Teams Client Account Representative Relationship Specialty Start Date End Date Leela Ruano MD PCP - General 10/31/[address] [place] [id number] documented as of this encounter
--- OUTSIDE RECORDS SUMMARY | 2022-03-08 12:44 | XMS_ITS | Encounter Summary ---
:1985 Author Organization [facility] Address [address] [address] Care Team Providers Name Role Phone Leela Ruano MD Primary Care Provider Encounter Details Date Type Department Care Team Description 04/14/2007 Office Visit [facility] Lis Clements, [address] [facility] [place] [address] [facility] [phone] [place], [place] [address] (Wo rk) Social History Tobacco Use Types Packs/Day Years Used Date Smoking Tobacco: Never Assessed Sex Assigned at Date Recorded Not on file documented as of this encounter Last Filed Vital Signs Vital Sign Reading Time Taken Comments Blood Pressure 120/86 04/14/2007 2:43 PM CDT Pulse 76 04/14/2007 2:43 PM CDT Temperature - - Respiratory Rate - - Oxygen Saturation - - Inhaled Oxygen Concentration - - Weight 56 kg (123 lb 6.3 oz) 04/14/2007 2:43 PM CDT C: 56.0kg Height - - Body Mass Index 20.85 01/10/2006 1:54 PM CDT documented in this encounter Progress Notes Lis Ro MD - 04/14/2007 12:01 AM CDT Progress Notes signed by Lis Ro MD at 04/15/07 0924 Author: Lis Ro MD Service: (none) Author Type: Physician Filed: 11/17/10 2202 Note Time: 04/14/07 0001 Status: Signed Assistant Professor: Lis Ro MD (Physician) NAME: CASSIDY KIRKLAND MR#: [id number] ACCT: [id number] VISIT: [id number] DICTATING CLINICIAN: Lis Ro MD JOB: [id number] LOC: 502 CLINIC PROGRESS NOTE DATE OF VISIT: 04/14/2007 SUBJECTIVE: Patient is a 21-year-old female who presents with a 4-5 month history of intermittent epigastric pain. She describes the pain as sharp and bloating. It occurs several times a week and can last 1-2 days at a time. Pain is worse with coffee, tobacco, and alcohol. She does not know what makes it better. She has had several episodes of emesis over the last several months, a couple times there was a small amount of bright-red blood. No coffee-ground emesis. She also reports some darker stools although no macho blood. Reports her appetite is good. She did lose 10 pounds some time in the last year but has regained that. She does not take NSAIDs on a regular basis but has taken aspirin for the pain. She rates her pain 7-8 out of 10. Her mother had a gastric ulcer when she was younger. She was seen in Urgent Care last week for this. H. pylori was negative. Normal CBC. Negative UPT. She did not take the prilosec that was recommended after she read the contraindications on the box. Patient would also like a refill on control pills. Last menstrual period 04/14/07. She had been on Trivora without any side effects. PAST MEDICAL HISTORY: Tension headache and acne. MEDICATIONS: None. ADR/ALLERGIES: PENICILLIN. OBJECTIVE: VS: BP: 120/86. P: 76. Wt: 123.4 lb. GENERAL: Well-nourished well-developed female no acute distress. NECK: Supple without lymphadenopathy or thyromegaly. HEART: Regular rate and rhythm. No murmurs. LUNGS: Clear to auscultation bilaterally. ABDOMEN: Soft nondistended with normal bowel sounds. She does have tenderness in the epigastrium. No masses palpated. Lab eval from urgent care on 04/03/07 showed a normal CBC, negative urine test, negative H-Pylori. ASSESSMENT: A 21-year-old female with epigastric pain suspicious for ulcer versus chronic gastritis. Negative H-Pylori testing. I have asked her to start Prilosec 20 mg p.o. b.i.d. Avoid NSAIDs, aspirin, tobacco, and alcohol completely. We will also schedule an upper endoscopy to evaluate further. I gave her note for school excusing her for the absences. I also refilled her Trivora for 1 year. She will follow up for a complete physical in the next month or so. PLAN: See assessment. [facility]:[id number] C: 04/15/07 09:19 DOCUMENT: [id number] documented in this encounter Plan of Treatment Not on filedocumented as of this encounter Visit Diagnoses Not on filedocumented in this encounter Care Teams Paper Final Inspector Relationship Specialty Start Date End Date Leela Ruano MD PCP - General 10/31/10 [address] [place] [address] documented as of this encounter
--- OUTSIDE RECORDS SUMMARY | 2022-03-08 12:45 | XMS_ITS | Encounter Summary ---
:1985 Author Organization [facility] Address [address] [place] [address] Care Team Providers Name Role Phone Leela Ruano MD Primary Care Provider Encounter Details Date Type Department Care Team Description 09/06/2003 PN Conversion Only [place] [address] [facility] [address] [place], [place] [address] [place] [address] (Wo rk) Social History Tobacco Use Types Packs/Day Years Used Date Smoking Tobacco: Never Assessed Sex Assigned at Date Recorded Not on file documented as of this encounter Plan of Treatment Not on filedocumented as of this encounter Procedures Procedure Name Priority Date/Time Associated Diagnosis Comme nts STREP GROUP A Routine 09/06/2003 1:08 PM Results for this ANTIGEN TEST AEROSPACE MEDICINE PHYSICIAN procedure are i n the results section. BETA STREP FOLLOWUP Routine 09/06/2003 1:08 PM Re sults for this AEROSPACE MEDICINE PHYSICIAN procedure are i n the results section. documented in this encounter Results Strep Group A Antigen Test (09/06/2003 1:08 PM AEROSPACE MEDICINE PHYSICIAN) Analysis Performed At Patho logist Time Signature Strep Group A Negative Negative HP CONVERSION Antigen Test Comment: Culture to follow. Specimen (Source) Anatomical Collection Method Collection Time Re ceived Time Location / / Volume Laterality 09/06/2003 1:08 PM AEROSPACE MEDICINE PHYSICIAN Bhupendra Dooley MD LAB_1 Performing Organization Address City/State/ZIP Code Phon e Number HP CONVERSION Beta Strep Followup (09/06/2003 1:08 PM AEROSPACE MEDICINE PHYSICIAN) P athologist Signature Strep Screen SEE TEXT HP CONVERSION Comment: Patient: CASSIDY KIRKLAND Rapid Strep Follow up Culture @ ? Collected: ??[id number] ??[id number] Source: Throat ?Processed: ??[id number] ??[id number] ? 1V Final Report ------ ?[id number] ??[id number] No beta hemolytic Strep group A isolated . @ = Rapid F/U Cult Performed at ??[address] [place], [place] ?[address] Specimen (Source) Anatomical Collection Method Collection Time Re ceived Time Location / / Volume Laterality 09/06/2003 1:08 PM AEROSPACE MEDICINE PHYSICIAN Bhupendra Dooley MD LAB_1 Performing Organization Address City/[facility]/ZIP Code Phon e Number HP CONVERSION documented in this encounter Visit Diagnoses Not on filedocumented in this encounter Care Teams Form Worker Relationship Specialty Start Date End Date Leela Ruano MD PCP - General 10/31/10 [address] [address] [place] [address] documented as of this encounter
--- OUTSIDE RECORDS SUMMARY | 2022-03-08 12:45 | XMS_ITS | Encounter Summary ---
:1985 Author Organization [facility] Address [address] [place] [address] Care Team Providers Name Role Phone Leela Ruano MD Primary Care Provider Encounter Details Date Type Department Care Team Description 01/30/2003 PN Conversion Only [place] [address] Chuck Gutierrez, [address] [facility] [place] [address] [place] [address] Social History Tobacco Use Types Packs/Day Years Used Date Smoking Tobacco: Never Assessed Sex Assigned at Date Recorded Not on file documented as of this encounter Plan of Treatment Not on filedocumented as of this encounter Procedures Procedure Name Priority Date/Time Associated Comments Diagnosis STREP GROUP A ANTIGEN Routine 01/30/2003 12:50 Re sults for this TEST PM CDT procedure are i n the results section. BETA STREP FOLLOWUP Routine 01/30/2003 12:50 Resu lts for this PM CDT procedure are i n the results section. DIFFERENTIAL MANUAL Routine 01/30/2003 11:49 Resu lts for this AM CDT procedure are i n the results section. MONONUCLEOSIS SCREEN Routine 01/30/2003 11:49 Res ults for this AM CDT procedure are i n the results section. WBC, BLOOD Routine 01/30/2003 11:49 Results for this AM CDT procedure are i n the results section. documented in this encounter Results Strep Group A Antigen Test (01/30/2003 12:50 PM CDT) Analysis Performed At Patho logist Time Signature Strep Group A Negative Negative HP CONVERSION Antigen Test Comment: Culture to follow. Specimen (Source) Anatomical Collection Method Collection Time Re ceived Time Location / / Volume Laterality 01/30/2003 12:50 PM CDT Alonso Mccall PA-C LAB_1 Performing Organization Address [facility] Phon e Number HP CONVERSION Beta Strep Followup (01/30/2003 12:50 PM CDT) athologist Signature Strep Screen SEE TEXT HP CONVERSION Comment: Patient: CASSIDY KIRKLAND Rapid Strep Follow up Culture @ ? Collected: ??[id number] ??[id number] Source: Throat ?Processed: ??[id number] ??[id number] ? 1V Final Report ------ ?[id number] ??[id number] No beta hemolytic Strep group A isolated . @ = Rapid F/U Cult Performed at ??[address] [place], [place] ?[address] Specimen (Source) Anatomical Collection Method Collection Time Re ceived Time Location / / Volume Laterality 01/30/2003 12:50 PM CDT Alonso Mccall PA-C LAB_1 Performing Organization Address [facility] Phon e Number HP CONVERSION WBC, Blood (01/30/2003 11:49 AM CDT) athologist Signature White Blood 9.1 3.8 - 11.0 HP CONVERSION Cell Count K/cmm Specimen (Source) Anatomical Collection Method Collection Time Re ceived Time Location / / Volume Laterality 01/30/2003 11:49 AM CDT Alonso Mccall PA-C LAB_1 Performing Organization Address [facility] Phon e Number HP CONVERSION (ABNORMAL) Differential Manual (01/30/2003 11:49 AM CDT) [facility] Method Time Signature Neutrophils 81 (H) 34 - 64 % HP CONVERSION Lymphocytes 15 (L) 25 - 45 % HP CONVERSION Monocyte 2 (L) 3 - 12 % HP CONVERSION Eosinophils 2 0 - 3 % HP CONVERSION Platelet Normal No normal HP CONVERSION Estimate range RBC Morphology Normal No normal HP CONVERSION range Comment: RBC's appear normochromic and n ormocytic. Specimen (Source) Anatomical Collection Method Collection Time Re ceived Time Location / / Volume Laterality 01/30/2003 11:49 AM CDT Alonso Mccall PA-C LAB_1 Performing Organization Address [facility] Phon e Number HP CONVERSION Mononucleosis Screen (01/30/2003 11:49 AM CDT) [facility] Method Time Signature Infectious Negative Negative HP CONVERSION Mononucleosis Screen Specimen (Source) Anatomical Collection Method Collection Time Re ceived Time Location / / Volume Laterality 01/30/2003 11:49 AM CDT Alonso Mccall PA-C LAB_1 Performing Organization Address City/[facility] Phon e Number HP CONVERSION documented in this encounter Visit Diagnoses Not on filedocumented in this encounter Care Teams Assembly Machine Feeder Relationship Specialty Start Date End Date Leela Ruano MD PCP - General 10/31/10 [address] [address] [place] [id number] documented as of this encounter
--- OUTSIDE RECORDS SUMMARY | 2022-03-08 12:45 | XMS_ITS | Encounter Summary ---
:1985 Author [facility] Address [address] [place] [address] Care Team Providers Name Role Phone Leela Ruano MD Primary Care Provider Encounter Details Date Type Department Care Team Description 04/29/2003 PN Conversion Only [place], [place] [address] [address] [place] [address] [place] [address] [phone] Social History Tobacco Use Types Packs/Day Years Used Date Smoking Tobacco: Never Assessed Sex Assigned at Date Recorded Not on file documented as of this encounter Progress Notes Alonso Mccall PA-C - 01/30/2003 12:01 AM CDT Progress Notes signed by Alonso Mccall PA-C at 04/27/04 1348 Author: Alonso Mccall PA-C Service: (none) Author Type: Physician Gamer Filed: 11/16/10 1513 Note Time: 01/30/03 0001 Status: Signed Assistant Corporation Counsel: Alonso Mccall PA-C (Physician Gamer) NAME: LEODAN KIRKLAND MR: [id number] ACCT: [id number] VISIT: [id number] DICTATING CLINICIAN: LEANN ROSARIO JOB: [id number] CLINIC PROGRESS NOTE DATE OF VISIT: 01/30/2003 SUBJECTIVE: See URI ildefonso. OBJECTIVE: Neutrophils were 81%, but white count was 9. ASSESSMENT: Pharyngitis with a negative rapid strep, negative mono, and normal white count. PLAN: Discussed the fact that is most likely viral. We will culture over the next 24 hours and treat if positive. Symptomatic care was discussed. Advil for discomfort. Return as needed with questions or if problems continue. TT: CT: [id number] C: 01/30/03 19:34 DOCUMENT: [id number] Sandie Carrillo MD - 04/25/2002 12:01 AM CDT Progress Notes signed by Sandie Carrillo MD at 05/27/02 1637 Author: Sandie Carrillo MD Service: (none) Author Type: Physician Filed: 11/16/10 0942 Note Time: 04/25/022022 Status: Signed Assistant Corporation Counsel: Sandie Carrillo MD (Physician) IMPRESSION: No dictation required. URI, bronchitis. SUBJECTIVE: No dictation. OBJECTIVE: N/A ASSESSMENT: URI, bronchitis. PLAN: E.E.S. TT: CT: [id number] C: DOCUMENT: [id number] AGE BATTERY CHARGER Conversion, [facility] - 09/29/2001 12:01 AM CST Progress Notes signed by at 09/19/022022 Author: Trung Conversion Service: (none) Author Type: (none) Filed: 11/16/10 0454 Note Time: 09/29/012022 Status: Signed Assistant Corporation Counsel: Trung Conversion IMPRESSION: Acne. SUBJECTIVE: : 85. Leodan is a 16-year-old female in today in follow up of acne. She has been taking taking tetracycline 500 mg twice daily. Also using Benzac wash which seems to be doing well. She does have some breakthrough symptoms, for which her mother is wondering if there is something extra that she may be using. She denies any significant irritation to her skin from the benzoyl peroxide wash. Denies any adverse side effects from the tetracycline. PAST MEDICAL HISTORY: Acne. MEDICATIONS: Benzac wash twice daily. ADR/ALLERGIES: PENICILLIN. TOBACCO USE: None. Further complete ROS is negative. OBJECTIVE: VS/GEN: BP: 106/70. P: 68. Wt: 117 lb. This is a 16-year-old female in [place]. She is WH, WN. SKIN: Warm and dry. No rashes, no edema. There are multiple inflammatory papules, sparsely scattered across her face. More densely scattered across her upper back. No cystic acne. No scarring present. No further physical examination was done today. ASSESSMENT: Acne. PLAN: Will continue on the tetracycline at 500 mg twice daily. Will also add in Retin-A Micro gel to be used q.h.s. Mother is concerned as the Benzac was is quite expensive, their insurance did not cover it. Instructed them to use some of the over-the- counter acne washes instead. They will return on a p.r.n. basis. TT: CT: [id number] C: DOCUMENT: [id number] SCHEDULED RESOURCE: MARSHAL SEBASTIAN / JOSEPH AGE BATTERY CHARGER Conversion, [facility] - 07/28/2001 12:01 AM CST Progress Notes signed by at 09/19/02 0001 Author: Trung Conversion Service: (none) Author Type: (none) Filed: 11/16/10 0325 Note Time: 07/28/01 0001 Status: Signed Assistant Corporation Counsel: Trung Conversion IMPRESSION: Moderate acne. SUBJECTIVE: : 1985. Leodan is a 16-year-old female in today concerned with acne involving her face, back and chest. Finds that she has used just about everything gkaw-hky-thpgyuq without any improvement in her symptoms. Finds that some of the products are more irritating to her skin than helpful for her acne. Is currently using Nature's Care cejo-bcr-zxmpxll which involves both a pill and a cream. She does report some cystic-type acne with some scarring on both cheeks present as a result. PAST MEDICAL HISTORY: Benign. CURRENT MEDICATIONS: None. ALLERGIES : PENICILLIN. TOBACCO USE: None. Further complete ROS is negative. Pain and nutrition screening negative. OBJECTIVE: VS/GEN: BP: 104/70 P: 76 Wt: 114 pounds. This is a 16-year-old female in [facility]. She is WH, WN. SKIN: Warm and dry. No rashes, no edema and no cyanosis. There are inflammatory papules scattered across both cheeks, her chin and forehead, as well as across the upper back and shoulders. She does have some open comedones noted on her chin, forehead and nose, as well as on her chest and back. ASSESSMENT: Moderate acne. PLAN: Will start tetracycline 500 mg, one p.o. b.i.d. and also Benzac 5% wash, to be applied once daily while in the shower. She will return in one month for further followup. Will contact me with any further questions or concerns prior to that. TT: CT: [id number] C: DOCUMENT: [id number] SCHEDULED RESOURCE: MARSHAL SEBASTIAN / JOSEPH Kori Daily APRN, CNP - 02/28/2000 12:01 AM CDT Progress Notes signed by Kori Alicia APRN, CNP at 12/02/00 9934 Author: TATO Davis Service: (none) Author Type: Nurse Practitioner Filed: 11/15/10 1801 Note Time: 02/28/00 0001 Status: Signed Assistant Corporation Counsel: TATO Davis (Nurse Practitioner) IMPRESSION: Uooxqpfp-ecog-xxt well-child physical exam. Rule out scoliosis. SUBJECTIVE: This 14-year-old comes in today for a well-child physical exam in need of a sports physical. She is without any specific questions or concerns regarding her health. Diet: She is a well-rounded eater, drinking 2% milk. Growth and Development: She has had her period for about the last year. She gets it on a regular 28- 32-day cycle. It usually lasts 3-4 days. Describes her flow as light to moderate. Does not suffer from cramping or discomfort. Activities: She is involved in cheerleading. Hearing and Vision: She recently had her eyes checked by an glassware maker demonstrator. One eye was nearsighted, the other eye was farsighted. Did not recommend glasses at this time but continue to monitor. No concerns of hearing. Safety: Wears a seatbelt. MEDICATIONS: Currently on no medications. ALLERGIES TO PENICILLIN. No exposure to tobacco. PAST MEDICAL HISTORY and REVIEW OF SYSTEMS: Unremarkable. OBJECTIVE: BP: 100/68. Ht: 64, 60th percentile. Wt: 107 lb, 50th percentile. Head is normocephalic and atraumatic. Eyes are clear without redness or drainage bilaterally. Positive red reflex is noted bilaterally. Ocular movements intact. Funduscopic exams normal. Tympanic membranes nolen and pearly. Nose is clear. Mucous membranes moist. No redness or exudate to the throat. Neck is supple; no cervical lymphadenopathy. Lungs clear and equal bilaterally. Heart with a regular rate and rhythm. No murmur detected. Abdomen soft; no masses or organomegaly. No hernias detected. Positive femoral pulses bilaterally. She is Serafin stage III-IV. Musculoskeletal: Equal leg lengths. Equal strength in the upper and lower extremities. She is able to duck walk. Spine: She is noted to have about a 6 degree curvature of her spine with slight rotation noted. Positive deep tendon reflexes. Skin without rashes or bruises noted. ASSESSMENT: Debwhvah-lalm-evz well-child physical exam. Rule out scoliosis. PLAN: She is up to date on immunizations but will begin the hepatitis B series today, which she will receive her first immunization. She is to return in one month for the second hepatitis B. Risks and benefits discussed. Well-child handout was given. She is okayed for sports. Sports form was filled out and given to Mom. Related to the curvature of her back, she is to get the scoliosis series done, and will call Mom with those results with a plan of action according to the degree of curvature. [facility]:[id number] C: DOCUMENT: [id number] Junior Posadas MD - 12/20/1999 12:01 AM CDT Progress Notes signed by Junior Posadas MD at 05/27/02 0857 Author: Junior Posadas MD Service: (none) Author Type: Physician Filed: 11/15/10 1703 Note Time: 12/20/99 0001 Status: Signed Assistant Corporation Counsel: Junior Posadas MD (Physician) IMPRESSION: No dictation required. Upper respiratory infection. SUBJECTIVE: See URI shingle. OBJECTIVE: N/A ASSESSMENT: Upper respiratory infection. PLAN: Fluids, rest, Tylenol. Follow up if symptoms not improving in five to six days, sooner if worse or any new symptoms. DSR:[id number] C: DOCUMENT: [id number] AGE BATTERY CHARGER Conversion, [facility] - 07/05/1999 12:01 AM CST Progress Notes signed by at 05/27/02 1637 Author: [facility] Conversion Service: (none) Author Type: (none) Filed: 11/15/10 1424 Note Time: 07/05/99 0001 Status: Signed Assistant Corporation Counsel: [facility] Conversion IMPRESSION: No dictation required. Pharyngitis, upper respiratory infection. SUBJECTIVE: See URI shingle. OBJECTIVE: N/A ASSESSMENT: Pharyngitis, upper respiratory infection. PLAN: Symptomatic care. LAG:[id number] C: DOCUMENT: [id number] SCHEDULED RESOURCE: [facility] AGE BATTERY CHARGER Conversion, [facility] - 03/28/1999 12:01 AM CDT Phone Note signed by at 03/28/99 1029 Author: [facility] Conversion Service: (none) Author Type: (none) Filed: 11/15/10 1243 Note Time: 03/28/99 0001 Status: Signed Assistant Corporation Counsel: Trung Conversion IMPRESSION: Re: Tagamet Orders.. TO: GENET BOND FROM: ARABELLA MCNALLY LPN [phone] * PROVIDER MESSAGE: ROUTINE * 03/28/1999 10:29AM * *WITHIN 4 HOURS * MESSAGE: Pharmacist is requesting * HOME PHONE: [phone] * call from a Provider regarding * WORK PHONE: [phone] * the Tagamet Order written by T. * CONTACT PHONE: [phone] * Cal on 03/24/99: Order is * Pharmacist. * written for Tagamet 600mg po * PHARMACY: [phone] * BID. But Tagamet only comes * K-Tracy * in 300mg , 400mg , or 800mg. Please Advise. SUBJECTIVE: ALLERGIES/SENSITIVITIES... CURRENT MEDICATIONS... PERTINENT PAST HISTORY... WEIGHT: Not Available OMITTED ASKING ABOUT ; OMITTED ASKING ABOUT NURSING; ASSESSMENT: Re: Tagamet Orders.. PLAN: DISPOSITION: NO DISPOSITION GIVEN Call taken by ARABELLA MCNALLY LPN [phone] 03/28/1999 10:23 AM ADDENDUM: <> 03/28/1999 11:07AM by TRUDI VASQUEZ [phone]: NURSE FOLLOW UP NEEDED.Per Diana Bond NP: There is a pharmacy question on Tagamet ordered by JOSEPH Alcaraz. Phone Care will have to go through that office, wherever Svetlana Minor is and either speak with him or his nurse. I looked up the note, and I see that that is the order, but I have no idea what it is for, and I am not familiar with this patient. This will have to be clarified by the person prescribing. <> 03/28/1999 12:01PM by AMPARO RICH LPN [phone]: ////Attention: Alonso Mccall @ 1V; The above message was sent to Gisella Bond in error. Pharmacy needs provider to clarify above rx. Patient was seen by provider on 03/24/99, see progress note in phone care. Alonso Sellers PA-C - 03/24/1999 12:01 AM CDT Progress Notes signed by Alonso Mccall PA-C at 06/26/99 1360 Author: Alonso Mccall PA-C Service: (none) Author Type: Physician Gamer Filed: 11/15/10 1240 Note Time: 03/24/99 0001 Status: Signed Assistant Corporation Counsel: Alonso Mccall PA-C (Physician Gamer) IMPRESSION: Multiple plantar warts. SUBJECTIVE: This pleasant 13-year-old white female presents to family practice for multiple plantar warts. She did have the growths treated with cryotherapy. The last visit was 03/09/99. She had a good response from the cryotherapy and her warts have decreased in size. She did have some peeling in the skin. However, they are still present at this time. No blistering or sign of infection has been noted. No new areas have been noted. MEDICATIONS: None. ALLERGIES: PENICILLIN. Tobacco use none. OBJECTIVE: WT: 101 GENERAL: Well-developed, well-nourished white female in no acute distress. Examination of the right foot reveal some peeling skin and multiple verrucous growths over the first toe and forefoot. No new areas noted from prior assessments done 03/09/99. There are some areas of new skin growing over. However, they do appear to have warty tissue in them. No sign of infection. ASSESSMENT: Multiple plantar warts. PLAN: skin was removed with sterile 15 blade. Patient tolerated this well. Cryotherapy was performed on a limited basis as patient still was quite a bit more sensitive than the first freezing. Will start Tagamet 600 mg p.o. b.i.d. Add a 30 mg/kg divided by two dosing. Patient will return p.r.n. if symptoms persist or worsen or if any questions develop. As soon as the warts are noted to be returning, she is to return for further cryotherapy. She will use the Tagamet for the next three months. CC: [id number] C: DOCUMENT: [id number] AGE BATTERY CHARGER Alonso Mccall PA-C - 03/09/1999 12:01 AM CDT Progress Notes signed by Alonso Mccall PA-C at 06/26/99 4405 Author: Alonso Mccall PA-C Service: (none) Author Type: Physician Gamer Filed: 11/15/10 1225 Note Time: 03/09/99 0001 Status: Signed Assistant Corporation Counsel: Alonso Mccall PA-C (Physician Gamer) IMPRESSION: Multiple plantar warts right foot. SUBJECTIVE: This is a pleasant 13-year-old white female who presents to Family Practice for re-evaluation or retreatment of multiple warts on the foot. She was last treated on 02/23/99 with cryotherapy. She has 2 large cauliflower lesions, 1 over the plantar surface of the right first toe and 1 over the head of the third metatarsal on the right toe as well. There are multiple small warts noted over the left first toe on the plantar surface as well. She had a good response to the cryotherapy. There has been a significant reduction in the size of the warts and warty tissue. She has been using 17% salicylic, 17% lactic and 17% acetic acid solution, applying and paring daily, but has had some discomfort over the largest warty lesion on the toe. MEDICATIONS : None. ALLERGIES TO PENICILLIN (hives). Tobacco use: Mother does smoke. OBJECTIVE: Wt: 99 lb. GENERAL: Well developed, well nourished white female in no acute distress. Examination of the right foot reveals a large cauliflower appearing warty growth on the right first toe as well as over the head of the third metatarsal. There are multiple other smaller verrucous growths noted on the first toe as well. ASSESSMENT: Multiple plantar warts right foot. PLAN: The large warts were first pared down, removing the callus and tissue. Some discomfort was noted with this procedure. Cryotherapy was then performed on each of these 2 lesions as well as the medium sized lesions noted on the first toe. Patient tolerated procedure well and will restart 17% salicylic, 17% acetic and 17% lactic acid solution, applying and paring daily in 1 week. She will return p.r.n. if symptoms persist or worsen or if any questions develop. [id number] C: DOCUMENT: [id number] AGE BATTERY CHARGER Alonso Mccall PA-C - 02/23/1999 12:01 AM CDT Progress Notes signed by Alonso Mccall PA-C at 06/26/992022 Author: Alonso Mccall PA-C Service: (none) Author Type: Physician Gamer Filed: 11/15/10 1211 Note Time: 02/23/99 0001 Status: Signed Assistant Corporation Counsel: Alonso Mccall PA-C (Physician Gamer) IMPRESSION: Multiple warts. SUBJECTIVE: This pleasant 13-year-old white female presents to family practice for multiple warts on the right foot. No previous therapy has been performed. No sign of infection has been noted. No purulence or discharge noted. No previous history of warts has been noted. There is a family history of several warts with her mother. No other questions. MEDICATIONS: None. ALLERGIES: PENICILLIN. Tobacco use none. OBJECTIVE: BP: 100/50. Wt: 101. GENERAL: Well-developed, well-nourished white female in no acute distress. Examination of the right foot reveals two large cauliflower warts noted one on the plantar surface of the right first toe and other on the plantar surface over the head of the second metatarsal. There are also multiple small verrucous growths noted surrounding the large wart on the first toe, too numerous to count. ASSESSMENT: Multiple warts. PLAN: Cryo therapy was performed on the two cauliflower lesions. Due to the size and discomfort noted with the treatment we discussed later treatment of the small verrucous growths at this time. 17% salicylic, 17% lactate and 17% acidic acid will be used after one week. To pare and apply daily. She will return in approximately two weeks for refreezing and treatment of the smaller warts. [id number] C: DOCUMENT: [id number] Alexandru Helton - 09/18/1997 12:01 AM CST Progress Notes signed by Alexandru Houser MD at 11/15/97 1432 Author: Alexandru Houser MD Service: (none) Author Type: Physician Filed: 11/15/10 0328 Note Time: 09/18/97 0001 Status: Signed Assistant Corporation Counsel: Alexandru Houser MD (Physician) IMPRESSION: Upper lip swelling. SUBJECTIVE: 12-year-old is brought to Urgent Care by her mother because of concern for possible allergic reaction to penicillin. The patient apparently awakened this morning with swelling of the upper lip only. There was no noticeable swelling of the lower lip. There was no itchiness. She was sore inside the mouth, but only in the area of her upper lip, next to her braces. There was a small amount of bleeding from the inner-upper lip mucosa next to the braces. Patient has had no shortness of breath, chest tightness or wheezing. No swelling of the lower lip. No other lesions noted in the mouth or the eyes. No hives or any skin rash, nor any pruritus. No itchiness of the eyes either. Past History: No history of any medication allergies. No family history of allergies to medications. REVIEW OF SYSTEMS: Generally she has had no fever or chills. No malaise. No weakness. Skin: No skin rash or any pruritus. ENT: No mouth sores other than the area against her braces. Eyes: No conjunctival rash or soreness. MEDICATIONS: Vee-Tids. OBJECTIVE: Temperature 97.6. Pulse 84. Respirations 16. Blood pressure 98/62. Weight 80 lb. historically. Patient has warm dry skin. There is no rash present. Patient has no angioedema. No swelling of the face. The upper lip has minimal amount of swelling of its inside mucosal surface, but no noticeable swelling on the outside. No swelling of the lower lip. There is an abraded-appearing mucosa of the inner-upper lip, in the area against the braces, but no other mucosal lesions are found. No conjunctival lesions. Breathing easily. Lungs are clear. No rales or rhonchi. ASSESSMENT: N/A. PLAN: My initial impression was to continue with the treatment since there was no swelling of the lower lip or other symptoms of an allergic reaction, feeling that the upper lip swelling was due to the abrasion from the braces. However, mom suggested that the reverse process could have occurred where the child had swelling of the upper lip and then developed the abrasion and then bloody lip from the braces. Although this is possible, it is probably unlikely. However, total reassurance could not be done in terms of being absolutely certain that there was no penicillin allergy, so the best approach was to take the patient off the penicillin and assume a possible penicillin allergy in the future. Patient is placed on EES 1 1/2 tsp. b.i.d. x 10 days with food. The patient is alert and nontoxic, and there is no evidence whatsoever of any Gonzalez-Chapin syndrome. Mom understood the instructions, and the child will be rechecked at any time for development of oral, respiratory, or ocular symptoms. [facility] AGE BATTERY CHARGER Sandie Carrillo MD - 1996 12:01 AM CST Progress Notes signed by Sandie Carrillo MD at 05/27/02 1637 Author: Sandie Carrillo MD Service: (none) Author Type: Physician Filed: 11/14/10 2153 Note Time: 07/21/96 0001 Status: Signed Assistant Corporation Counsel: Sandie Carrillo MD (Physician) IMPRESSION: No dictation required. Pharyngitis. SUBJECTIVE: N/A OBJECTIVE: N/A ASSESSMENT: N/A PLAN: Treatment: Pending strep screen. timbo AGE BATTERY CHARGER documented in this encounter Plan of Treatment Not on filedocumented as of this encounter Procedures Procedure Name Priority Date/Time Associated Comments Diagnosis ANC RESULT Routine 02/28/2000 4:32 PM Results f or this CONVERSION DEFAULT CDT procedure are in ORDER the results section. STREP GROUP A Routine 12/20/1999 5:43 PM Results for this ANTIGEN TEST CDT procedure are i n the results section. BETA STREP FOLLOWUP Routine 12/20/1999 5:43 PM Re sults for this CDT procedure are i n the results section. STREP GROUP A Routine 07/05/1999 11:37 AM Results for this ANTIGEN TEST STORAGE BATTERY CHARGER procedure are i n the results section. BETA STREP FOLLOWUP Routine 07/05/1999 11:37 AM R esults for this STORAGE BATTERY CHARGER procedure are i n the results section. BETA STREP RESP CULT Routine 09/15/1997 4:11 PM R esults for this STORAGE BATTERY CHARGER procedure are i n the results section. documented in this encounter Results Anc Result Conversion Default Order (02/28/2000 4:32 PM CDT) Anatomical Region Laterality Modality Other Specimen (Source) Anatomical Location Collection Method / Collectio n Time Received Time / Laterality Volume Narrative 02/28/2000 4:32 PM CDT CLINICAL DATA: ?CURVATURE ON EXAM. FINDINGS: ?SCOLIOSIS EXAM: ??TWELVE THORACIC AND FIVE LUMBAR TYPE ?VERTEBRAE WITHOUT ANY SIGNIFICANT ANOMALIES NOTED. ??THERE IS ?A MILD LEVOSCOLIOSIS OF 7 DEGREES MEASURED FROM T4 ?THROUGH T10. ??SECONDARY DEXTROSCO LIOSIS OF 6 DEGREES IS ?MEASURED FROM T11 THROUGH L3. ?MT (001) TECH-ID : ? [id number] TRANS-ID: ? EDR Procedure Note Hosea Delacruz - 10/04/2016Formatting o f this note might be different from the original. CLINICAL DATA: CURVATURE ON EXAM. FINDINGS: SCOLIOSIS EXAM: TWELVE THORACIC AND FIV E LUMBAR TYPE VERTEBRAE WITHOUT ANY SIGNIFICANT ANOMA LIES NOTED. THERE IS A MILD LEVOSCOLIOSIS OF 7 DEGREES ME ASURED FROM T4 THROUGH T10. SECONDARY DEXTROSCOLIOSIS OF 6 DEGREES IS MEASURED FROM T11 THROUGH L3. MT (001) TECH-ID : [id number] TRANS-ID: EDR Kori Alicia WAREHOUSE ENGINEER, MANUAL LATHE OPERATOR RAD GD Strep Group A Antigen Test (12/20/1999 5:43 PM CDT) Analysis Performed At Patho logist Time Signature Strep Group A Negative Negative HP CONVERSION Antigen Test Comment: Culture to follow. Specimen (Source) Anatomical Collection Method Collection Time Re ceived Time Location / / Volume Laterality 12/20/1999 5:43 PM CDT Junior Posadas MD LAB_1 Performing Organization Address [facility] Code Phon e Number HP CONVERSION Beta Strep Followup (12/20/1999 5:43 PM CDT) athologist Signature Strep Screen SEE TEXT HP CONVERSION Comment: Patient: LEODAN KIRKLAND Rapid Strep Follow up Culture @ ? Collected: ??[id number] ??[id number] Source: Throat ?Processed: ??[id number] ??[id number] ? 1V Final Report ------ ?[id number] ??[id number] No beta hemolytic Strep group A isolated . @ = Rapid F/U Cult Performed at [address] [place] ?[address] Specimen (Source) Anatomical Collection Method Collection Time Re ceived Time Location / / Volume Laterality 12/20/1999 5:43 PM CDT Junior Posadas MD LAB_1 Performing Organization Address City/State/ZIP Code Phon e Number HP CONVERSION Strep Group A Antigen Test (07/05/1999 11:37 AM STORAGE BATTERY CHARGER) Analysis Performed At Patho logist Time Signature Strep Group A Negative Negative HP CONVERSION Antigen Test Comment: Culture to follow. Specimen (Source) Anatomical Collection Method Collection Time Re ceived Time Location / / Volume Laterality 07/05/1999 11:37 AM STORAGE BATTERY CHARGER Kimber Villar MD LAB_1 Performing Organization Address City/[facility]/ZIP Code Phon e Number HP CONVERSION Beta Strep Followup (07/05/1999 11:37 AM STORAGE BATTERY CHARGER) P athologist Signature Strep Screen SEE TEXT HP CONVERSION Comment: Patient: LEODAN KIRKLAND Rapid Strep Follow up Culture @ ? Collected: ??[id number] ??1137 Source: Throat ?Processed: ??[id number] ??1154 ? 1V Final Report ------ ?[id number] ??1116 No beta hemolytic Strep group A isolated . @ = Rapid F/U Cult Performed at ??[address] [place], [place] ?[address] Specimen (Source) Anatomical Collection Method Collection Time Re ceived Time Location / / Volume Laterality 07/05/1999 11:37 AM STORAGE BATTERY CHARGER Kimber Villar MD LAB_1 Performing Organization Address City/[facility]/ZIP Code Phon e Number HP CONVERSION (ABNORMAL) Beta Strep Resp Cult (09/15/1997 4:11 PM STORAGE BATTERY CHARGER) Analysis Performed At [facility] Time Signature Strep Screen SEE TEXT HP CONVERSION (A) Comment: Patient: LEODAN KIRKLAND Culture Strep Screen, Throat @ ?Collected: ??[id number] ??1611 Source: Throat ?Processed: ??[id number] ??1617 ? IV Final Report ------ ?[id number] ??1100 Beta Strep Group A Present. ICSI Pharyngitis guideline recommends Penicillin V potassium (Pen VK) in nonal lergic patients. If < 50 lbs, 250 mg PenVK BID for 10 day s. >=50 lbs, 500 mg PenVK BID for 10 days. @ = Strep Screen Performed at ??[address] [facility] [place] [place], [place] ?[address] Specimen (Source) Anatomical Collection Method Collection Time Re ceived Time Location / / Volume Laterality 09/15/1997 4:11 PM STORAGE BATTERY CHARGER Jacky Paredes MD LAB_1 Performing Organization Address City/[facility] Code Phon e Number HP CONVERSION documented in this encounter Visit Diagnoses Not on filedocumented in this encounter Care Teams Stopperer Assembler Relationship Specialty Start Date End Date Leela Ruano MD PCP - General 10/31/10 [address] [place] [address] documented as of this encounter
--- OUTSIDE RECORDS SUMMARY | 2022-03-08 12:45 | XMS_ITS | Encounter Summary ---
:1985 Author Organization [facility] Address [address] [place] [address] Care Team Providers Name Role Phone Leela Ruano MD Primary Care Provider Encounter Details Date Type Department Care Team Description 04/29/2003 PN Conversion Only [place] [address] [address] [place] [address] Social History Tobacco Use Types Packs/Day Years Used Date Smoking Tobacco: Never Assessed Sex Assigned at Date Recorded Not on file documented as of this encounter Plan of Treatment Not on filedocumented as of this encounter Visit Diagnoses Not on filedocumented in this encounter Care Teams Admissions Counselor Relationship Specialty Start Date End Date Leela Ruano MD PCP - General 10/31/[address] [place] [id number] documented as of this encounter
--- OUTSIDE RECORDS SUMMARY | 2022-03-08 12:45 | XMS_ITS | Encounter Summary ---
:1985 Author Organization [facility] Address [address] [place] [address] Care Team Providers Name Role Phone Leela Ruano MD Primary Care Provider Encounter Details Date Type Department Care Team Description 06/02/2003 PN Conversion Only [place] N Leela Ruano, [address] [facility] [place] [address] [facility] [place] [address] (Wo rk) Social History Tobacco Use Types Packs/Day Years Used Date Smoking Tobacco: Never Assessed Sex Assigned at Date Recorded Not on file documented as of this encounter Plan of Treatment Not on filedocumented as of this encounter Procedures Procedure Name Priority Date/Time Associated Comments Diagnosis ANATOMICAL PATH Routine 06/02/2003 9:45 AM Result s for this LIQUID BASED SALES TRAINEE procedure are i n the results section. documented in this encounter Results Pap Smear (06/02/2003 9:45 AM SALES TRAINEE) [facility]ist Method Time Signature PAP Smear SEE TEXT No normal HP CONVERSION Liquid Based range Comment: Patient: CASSIDY KIRKLAND ? CERVICAL CYTOLOGY REPORT Pathology # ??[id number] ?Date Obtained: ? Date Received: CYTOLOGIC IMPRESSION: Negative for intraepithelial lesion or m alignancy. Fungal organisms identified. ? AFSHIN TIONAL DATA LMP: ?05-20-03 CLINICAL HIST LIQUID BASED PAP CERVICAL SPECIMEN ADEQUACY: ??Satisfactory but li mited by absence of endocervical cells. Verified 06/09/03 by: ??LKR ?(electronic signature) Specimen (Source) Anatomical Collection Method Collection Time Re ceived Time Location / / Volume Laterality 06/02/2003 9:45 AM SALES TRAINEE Leela Ruano MD LAB_1 Performing Organization Address City/State/ZIP Code Phon e Number HP CONVERSION documented in this encounter Visit Diagnoses Not on filedocumented in this encounter Care Teams Safe And Vault Installer Relationship Specialty Start Date End Date Leela Ruano MD PCP - General 10/31/10 [address] [place] [place] [address] documented as of this encounter
--- OUTSIDE RECORDS SUMMARY | 2022-03-08 12:45 | XMS_ITS | Encounter Summary ---
:1985 Author Organization [facility] Address [address] [place] [address] Care Team Providers Name Role Phone Leela Ruano MD Primary Care Provider Encounter Details Date Type Department Care Team Description 01/30/2003 PN Conversion Only [place] [facility] N Chuck Gutierrez, [address] [facility] [address] [place] [address] Social History Tobacco Use Types Packs/Day Years Used Date Smoking Tobacco: Never Assessed Sex Assigned at Date Recorded Not on file documented as of this encounter Plan of Treatment Not on filedocumented as of this encounter Visit Diagnoses Not on filedocumented in this encounter Care Teams Business Partner Relationship Specialty Start Date End Date Leela Ruano MD PCP - General 10/31/[address] [place] [address] [address] [place] [id number] documented as of this encounter
--- OUTSIDE RECORDS SUMMARY | 2022-03-08 12:45 | XMS_ITS | Encounter Summary ---
:1985 Author [facility] Address [address] [place] [address] Care Team Providers Name Role Phone Neva Lopez MD Primary Care Provider Encounter Details Date Type Department Care Team Description 12/22/2003 PN Conversion Only [place] [address] [place] [address] Social History Tobacco Use Types Packs/Day Years Used Date Smoking Tobacco: Never Assessed Sex Assigned at Date Recorded Not on file documented as of this encounter Progress Notes Neva Lopez MD - 11/25/2003 12:01 AM CDT Progress Notes signed by ARIANNA Love at 01/17/04 1004 Author: ARIANNA Love Service: (none) Author Type: Physician Filed: 11/16/10 2222 Note Time: 11/25/03 0001 Status: Signed Dust Operator: ARIANNA Love (Physician) NAME: CASSIDY KIRKLAND MR: [id number] ACCT: [id number] VISIT: [id number] DICTATING CLINICIAN: NEVA LOPEZ MD JOB: [id number] CLINIC PROGRESS NOTE DATE OF VISIT: 11/25/2003 ASSESSMENT: Patient gets daily headaches, which appear to be more tension type rather than vascular in nature. She may also have some element of rebound headaches associated with this. PLAN: At this point, I will have her completely stop Excedrin. Will start her on nortriptyline 10 mg at night, as well as naproxen 375 mg twice a day to take with food over the next couple of weeks. Follow up if there is no improvement. SUBJECTIVE: Cassidy is an 18-year-old young woman who comes in today with concerns that over the past couple of weeks, she has been having daily headaches. She describes the pain as being in the frontal area. It is a sharp pain and at times has a squeezing sensation to it. She has been feeling slightly nauseous with it. She notes that her headaches occur at any time of the day but usually comes on during the course of the day and she has been taking up to four Excedrin on a daily basis, since it started. She has not had any actual vomiting. Has some very mild photophobia associated with this. Does not report any nasal congestion or tearing of her eyes. Has no previous history of migraine headaches and there is no family history of that. She has lost one day from school because of this and went home early on another day. She is, otherwise, quite healthy. She is a high school senior. Feels that this is a particularly stressful time of the year for her. 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 PAST MEDICAL HISTORY: Negative for chronic medical conditions. MEDICATIONS: She is on Triphasil 28. ADR/ALLERGIES: IS ALLERGIC TO PENICILLIN. REVIEW OF SYSTEMS: Negative for any upper respiratory symptoms. Appetite is good. Weight has been stable. The rest of the complete review of systems negative. She does not smoke. OBJECTIVE: VS: BP: 118/70. P: 72 a minute, regular, good volume. Wt: 122 lb. On examination, pleasant, young woman, looks well. HEENT: Pupils are equal, round, and reactive to light. Extraocular movements intact. Ear canals clear. TMs look good. Oropharynx clear, good dentition. Cranial nerves II through XII grossly nonfocal. NECK: Supple. No adenopathy or thyromegaly noted. CHEST: Clear to auscultation with equal breath sounds in right and left lung thompson. HEART: Regular rate and rhythm. No added sounds or murmurs heard. EXTREMITIES: No lesions. Gait and coordination fine. [id number] C: 11/29/03 10:12 DOCUMENT: [id number] Bhupendra Dooley MD - 09/06/2003 12:01 AM CST Progress Notes signed by Bhupendra Dooley MD at 09/06/03 1151 Author: Bhupendra Dooley MD Service: (none) Author Type: Physician Filed: 11/16/10 8960 Note Time: 09/06/032015 Status: Signed Dust Operator: Bhupendra Dooley MD (Physician) CHIEF COMPLAINT: POSS STREP PROVIDER NOTE: [facility] Acute Clinic Visit IMPRESSION: Pharyngitis Chief Complaint: Sore throat SUBJECTIVE: History of Present Illness: Illness duration: 3 days Pt. has felt feverish but hasn't taken temperature Symptoms worsening Headache No ear pain Nasal congestion/rhinorrhea Sore throat Neck nodes/Swollen glands Mild cough Decreased appetite Taking liquids well No nausea No vomiting Acute Medications: OTC therapies Ibuprofen Past History: Smoking: Patient does not smoke. Adverse Drug Reactions: Patient's Adverse Drug Reactions were reviewed and updated on the Health Profile screen of [facility] Chronic Medications: No chronic medications OBJECTIVE: Vital Signs: Vital Signs recorded on paper shingle General: Well-appearing in NAD. Eyes: External exam is normal bilaterally. , Ears: Bilateral pinnae, canals and TMs normal. Nose/sinuses: Nose clear, no sinus tenderness Oropharynx: Moderately injected Exudate present Tonsils: 1+ enlarged Neck: Moderately enlarged, symmetrical anterior nodes with tenderness Respiratory: Lung sounds clear to auscultation without respiratory distress Cardiac: RRR without murmurs Skin: Clear without rash or lesions Lab & X-Ray: Rapid strep test is negative. ASSESSMENT: Pharyngitis PLAN: Throat Culture pending If Strep culture is positive, pt. instructed to take the following prescription which was provided: Zithromax, Z-pack take as directed. Symptomatic care with OTC medications for comfort. Acetaminophen Ibuprofen Nutritious liquids URI/Sore throat pamphlet given RTC PRN if not gradually improving Shorthand Note completed on: 09/06/03 11:46 AM E RIDER Phone Note, Clinician - 07/06/2003 12:01 AM CST Phone Note signed by ARIANNA Love at 07/16/03 0623 Author: Clinician Phone Note Service: (none) Author Type: Resource Filed: 12/22/03 0000 Note Time: 07/06/03 0001 Status: Signed Dust Operator: Clinician Phone Note (Resource) - TREATING PROVIDER: NEVA JESSICA * HOME PHONE:[phone] * SUBJECTIVE: * WORK PHONE:[phone] * ALLERGIES/SENSITIVITIES... CURRENT MEDICATIONS... PERTINENT PAST HISTORY... ASSESSMENT: New rx Triphasil DISPOSITION: NO DISPOSITION GIVEN OMITTED ASKING ABOUT . OMITTED ASKING ABOUT NURSING. [facility] COM[facility]... Per Lyndsey Lopez rx approved for Triphasil 28 1 po every day 3 packs with 1 year refill and called to [facility] [phone] CALL BY NAHUM PICKETT 07/06/2003 10:09AM [phone] ADDENDUM: Neva Escamilla MD - 06/02/2003 12:01 AM CST H&P signed by ARIANNA Love at 06/23/03 1533 Author: ARIANNA Love Service: (none) Author Type: Physician Filed: 11/16/10 1714 Note Time: 06/02/03 0001 Status: Signed Dust Operator: ARIANNA Love (Physician) NAME: CASSIDY KIRKLAND MR: [id number] ACCT: [id number] VISIT: [id number] DICTATING CLINICIAN: NEVA LOPEZ MD JOB: [id number] CLINIC PHYSICAL DATE OF VISIT: 06/02/2003 SUBJECTIVE: Cassidy is a 17-year-old young woman who comes in today for her physical. She has been in quite good health in the past. PAST MEDICAL HISTORY: She has not had any surgeries or hospitalization. Her main concern today is that she would like to have some treatment for acne vulgaris. She has had acne for several years. She notes that her skin is usually quite sensitive and her skin peels quite easily. In the past she has used topical prescription medications but did not find it to be helpful. She even used tetracycline for a few months and did not notice much improvement. She notes that the lesions tend to be on the face but also on her back and chest. Appetite is good, eats a fairly good diet. Does drink milk. Bowel movements are regular. Menarche occurred in sixth grade. She gets regular menses occurring on a monthly basis. She usually has a lot of cramps on the first couple of days of her menses. She wonders about going on the pill to try to reduce this. She has not yet had a Pap smear. She is sexually active and states that she and her boyfriend use condoms. Energy levels are good. Sleep pattern is good. Does not report any chronic headaches, no problems with bleeding or chest pain or pressure with activity. ADR/ALLERGIES: THE PATIENT IS ALLERGIC TO PENICILLIN. REVIEW OF SYSTEMS: The rest of the complete review of systems is negative. 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 She drives and wears her seat belt. No one smokes in the home. She has an older brother who is healthy. She needs her third hepatitis B vaccine. Her parents and brother are in good health. She does not participate in any organized sports but is fairly active. OBJECTIVE: VS: BP: 104/68. P: 72, regular, good volume. Ht: 64.5 inches, which places her in the 60th percentile. Wt: 119 lb which places her under the 40th percentile. On examination, pleasant young girl, looks well. HEENT: Pupils equal and reactive to light. Ear canals clear. TMs look good. Oropharynx clear. Face: She has several fairly large pustules as well as some papules scattered on her forehead, on her chin and on her cheeks, a few red papules are present on her chest and back consistent with acne vulgaris. NECK: Supple, no adenopathy or thyromegaly noted. Breath sounds symmetric, nontender, no masses, lumps. No nipple discharge noted. No axillary adenopathy present. CHEST: Clear to auscultation. HEART: Regular rate and rhythm, no added sounds or murmurs heard. ABDOMEN: Soft, nontender, no hepatosplenomegaly noted, no masses appreciated. PELVIC: Healthy appearing ureteral meatus and vaginal mucosa, scant whitish vaginal discharge present. Cervix nulliparous, uterus small. anterior, nontender, no adnexal masses or tenderness noted. RECTAL: Deferred. EXTREMITIES: No edema. SKIN: No other lesions except those of acne vulgaris seen. MUSCULOSKELETAL: Unremarkable. NEUROLOGICAL: Grossly nonfocal. LABS: None done today except for Pap smear. ASSESSMENT: Physical exam within normal limits. PLAN: She was given the third hepatitis B vaccine today. I also reviewed with her use of the control pill, and gave her a prescription for Ortho Tri-Cyclen to start with her next cycle using the Saturday start method. She has no contra-indications for being on the pill. Full instructions given to her. Follow up with me in 3 months. Did also advise that for the first month of being on the pill that she needs to have a back up method for contraception and that the pill does not protect against sexually transmitted disease. Acne vulgaris, continue with a mild facial wash twice a day and will have her apply Differin gel to her face every other night since there are a few open comedones also noted on her face, we also placed on doxycycline 50 mg twice a day to use for the next 8 weeks. After that to use this once a day until I see her back in follow up. TT: CT: [id number] C: 06/05/03 16:40 DOCUMENT: [id number] E RIDER documented in this encounter Plan of Treatment Not on filedocumented as of this encounter Visit Diagnoses Not on filedocumented in this encounter Care Teams Blood Bank Technologist Relationship Specialty Start Date End Date Neva Lopez MD PCP - General 10/31/10 [address] [place] [address] documented as of this encounter
[2022-03-08 21:39] LABS: Alanine Aminotransferase* 9 U/L (4-35); Aspartate Amino Transferase* 26 U/L (12-35)
[2022-03-08 22:20] LABS: Total Protein Urine < 5 mg/dL
[2022-03-08 22:22] LABS: Creatinine Urine 276.1 mg/dL
[2022-03-09 20:38] LABS: Blood Urea Nitrogen* 10 mg/dL (5-24); Creatinine* 0.7 mg/dL (0.5-1.5); Estimated Glomerular Filt Rate 115 ml/min
== END 2022-03-08 12:10 | disposition home or self-care (01) ==
PROVIDERS: Visit Provider Registered Nurse
DX: O16.3 Unspecified maternal hypertension, third trimester (principal); Z3A.36 36 weeks gestation of pregnancy
CPT/HCPCS: 82565; 82570; 84156; 84450; 84460; 84520; 87081; 87653

== ENCOUNTER 2022-03-09 14:58 | Outpatient (CLI) | payer BC, OTHER, SELFPAY ==
[2022-03-09] VITALS (9 sets, daily range): BP systolic 119–154; BP diastolic 85–96; PULSE 75–100; RESP 16; TEMP 37.2; O2SAT 98
--- OUTSIDE RECORDS SUMMARY | 2022-03-09 15:00 | XMS_ITS | Encounter Summary ---
:1985 Author Organization [facility] Address [address] [place] [address] Care Team Providers Name Role Phone Leela Ruano MD Primary Care Provider Reason for Visit Reason Comments Induction Of Labor Auth/Cert Specialty Diagnoses / Procedures Referred By Contact Refer red To Contact materials analyst Diagnoses Rh Labor And Delivery Procedures LABOR AND DELIVERY [address] [place], [place] [address] Phone: Fax: Referral ID Status Reason Start Date Expiration Date Visits Requ ested Visits Authorized [id number] 1 1 Encounter Details Date Type Department Care Team Description 08/17/2017 Surgery [facility] Elayne Zacarias section Birthplace MD Rahel [address] OBSTETRICS & [place] [address] SPECIALISTS [phone] [address] [facility] [address] [place], [place] [address] (Wo rk) Surgery Details Date/Time Status Location [...] at Date Recorded Female 08/03/2021 2:35 PM FISHERIES TECHNICIAN documented as of this encounter Last Filed Vital Signs Vital Sign Reading Time Taken Comments Blood Pressure 120/80 08/17/2017 2:20 AM FISHERIES TECHNICIAN Pulse - - Temperature 37.2 ??C (99 ??F) 08/17/2017 1:34 AM FISHERIES TECHNICIAN Respiratory Rate 18 08/16/2017 11:45 PM FISHERIES TECHNICIAN Oxygen Saturation 94% 08/17/2017 2:30 AM FISHERIES TECHNICIAN Inhaled Oxygen Concentration - - Weight 83.5 kg (184 lb) 08/16/2017 11:00 AM FISHERIES TECHNICIAN Height 162.6 cm (5' 4) 08/16/2017 11:00 AM FISHERIES TECHNICIAN Body Mass Index 31.58 08/16/2017 11:00 AM FISHERIES TECHNICIAN documented in this encounter Discharge Summaries Lia Zacarias MD - 08/16/2017 10:52 AM CST Post-Operative Note and Discharge Summary Leodan Milligan Date of : 1985 Age: [age] year old Date of Admission: 08/16/2017 Date of Discharge: 08/20/2017 1:00 PM Admitting Physician: Lia Zacarias MD Discharge Physician: Lia Zacarias MD Discharging Service: Obstetrics and Gynecology Home clinic: [facility] Admission Diagnoses: Indication for care in [...] provider in 6 weeks Lia Zacarias MD ERIES TECHNICIAN documented in this encounter Discharge Instructions Discharge InstructionsSoco HutchisonALVARO - 08/20/2017 10:38 AM CST Postop Instructions DsufevgovMbpn-[phone] [facility]-[phone] Activity ?? Do not lift more than [...] questions or concerns after you return home. ERIES TECHNICIAN documented in this encounter Medications at Time [...] Discharge home prec reviewed RTC 6 weeks ERIES TECHNICIAN Marcie Sun PA-C - 08/19/2017 8:48 AM CST # 2 Post op . 40 2/7 weeks. Gest Diabetic. LGA. Pt states doing well. Nursing. Pain well controlled. Afebrile VSS. Hgb 10.5. Fundus firm light flow. Incision dry and intact. Passing flatus. Voiding w/o problems. Ext: w trace edema no pain. Normal postop course. Plan routine postop care. Plan to discharge to home 08/20. ERIES TECHNICIAN Associated attestation - Asuncion Barnes MD - 08/19/2017 11:09 AM FISHERIES TECHNICIAN Physician Attestation I agree with the information in this note. Memo Alex MD - 08/18/2017 8:47 AM CST Afebrile. Abdomen is soft nontender. Dressing removed, incision is clean and dry. Tolerating diet, good pain control. Afebrile for 24 hours. Imp normal post op course. Plan Discontinue IV antibiotics. ERIES TECHNICIAN Memo Rosado MD - 08/17/2017 8:26 AM CST Mild elevation of temperature to 101.2 after her surgery, now on clindamycin and gent. No complaintsre incision. Tolerating diet, good pain control. Imp Post op c section Plan Continue antibiotics for at least 24 hours, otherwise routine post operative care. ERIES TECHNICIAN Lia Zacarias MD - 08/17/2017 12:18 AM [...] primary section. Consent signed. Lia Zacarias MD ERIES TECHNICIAN Marnie Villar MD - 08/16/2017 12:33 PM [...] labs pending. 3. GBS negative. Marnie Villar ERIES TECHNICIAN documented in this encounter H&P Notes Lia [...] FHT--175, moderate LTV, no accels, no decels [place]---ctx every 1-3 min Data: All laboratory data reviewed Lia Zacarias MD ERIES TECHNICIAN Marnie Villar MD - 08/16/2017 12:33 PM CST No significant change in general health status based on examination of the patient, review of Nursing Admission Database and record. EFW: 8lb 8oz Marnie Villar ERIES TECHNICIAN documented in this encounter Consult Notes Luther Dale LSW - 08/19/2017 11:52 AM CST D) SW responding to automatic referral, met with Leodan and Jovi who are and reside in [place]. Their baby Charleen is their first and is in the NICU for respiratory distress. They are prepared for her at home and are not on WIC. Leodan has 6 weeks off work and Jovi has one week off. Leodan's mother who lives in [place] will live with the couple for awhile [...] family while Charleen is in the NICU. ERIES TECHNICIAN documented in this encounter Miscellaneous Notes Note [...] follow up phone call within a week. ERIES TECHNICIAN Plan of Care - Mary Jane Welsh [...] present. Plan: Anticipate discharge home with infant. ERIES TECHNICIAN Plan of Care - Bhavesh Moya RN [...] present and supportive, bonding well with . ERIES TECHNICIAN Plan of Care - Yane Holden RN [...] and very attentive to pt and . ERIES TECHNICIAN Note - Soco Santoro RN - 08/19/2017 [...] pump. Will continue to follow and support. ERIES TECHNICIAN Plan of Care - Mary Jane Welsh RN - 08/19/2017 12:59 PM CST Problem: Patient Care Overview Goal: Plan of Care/Patient Progress Review Patient meeting expected goals this shift. Pain controlled with use of oral pain medications. Incision open to air, well-approximated. Up ad suzanne, ambulating to NICU to be with baby. ERIES TECHNICIAN Note - Soco Santoro RN - 08/19/2017 [...] shield. Will continue to follow and support. ERIES TECHNICIAN Plan of Care - Praris Medrano RN - 08/19/2017 5:37 AM CST [...] sent EBM to NICU. Meeting expected goals. ERIES TECHNICIAN Plan of Care - Dania Vargas RN [...] Continue to monitor per pt care plan. ERIES TECHNICIAN Plan of Care - Lucia Pratt RN - 08/18/2017 1:27 PM CST Problem: Patient Care Overview Goal: Plan of Care/Patient Progress Review Outcome: Improving VSS. Antibiotics discontinued this morning per Dr. Rosado, IV removed. Pain well controlled with oral tylenol and ibuprofen. Pt in NICU frequently this shift with . Using breastpump. Will continue to monitor. ERIES TECHNICIAN Plan of Care - Parris Medrano RN [...] to increase milk supply. Meeting expected goals. ERIES TECHNICIAN Plan of Care - Dania Vargas RN [...] provided. Contnue to monitor per care plan. ERIES TECHNICIAN Plan of Care - Amanda Landin RN [...] been afebrile this shift. Support persons present. ERIES TECHNICIAN Provider Notification - Amanda Landin RN - 08/17/2017 8:20 AM CST 08/17/17 0820 Provider Notification Provider Name/Title Dr. Rosado Method of Notification At Bedside Dr. Rosado at bedside. Plan to take pandya out at lunch time and get pt up and moving. MD updated that pt is on IV Clindamycin and IV Gentamycin--temps improving. MD assessed pt--POC reviewed. All questions answered. ERIES TECHNICIAN Provider Notification - Yanira Pena RN - 08/17/2017 5:20 AM FISHERIES TECHNICIAN 08/17/17 0520 Provider Notification Provider Name/Title Dr. [...] Gentamycin for 24 hours, then will re-evaluate. ERIES TECHNICIAN Plan of Care - Yanira Pena RN [...] Response: Patient tolerated transfer and is stable. ERIES TECHNICIAN Plan of Care - Yanira Pena RN - 08/17/2017 3:10 AM CST Went down to NICU with to see baby in NICU. ERIES TECHNICIAN Op Note - Lia Zacarias MD - [...] MD MT: LO Name: LEODAN MILLIGAN Account: [id number] : 1985 Procedure Date: 08/17/2017 Document: [id number] ERIES TECHNICIAN Brief Op Note - Lia Zacarias MD - 08/17/2017 1:29 AM FISHERIES TECHNICIAN [facility] Brief Operative Note Pre-operative diagnosis: 32yo at [...] for mild respiratory distress. Lia Zacarias MD ERIES TECHNICIAN Provider Notification - Yanira Pena RN - 08/17/2017 12:15 AM FISHERIES TECHNICIAN 08/17/17 0015 Provider Notification Provider Name/Title Dr. Zacarias Method of Notification At Bedside MD talking with patient regarding possible need for C/S, possible risks and benefits. Will have consent ready to sign for patient in agreement. ERIES TECHNICIAN Provider Notification - Yanira Pena RN - 08/17/2017 12:00 AM FISHERIES TECHNICIAN 08/17/17 0000 Provider Notification Provider Name/Title Dr. Zacarias Method of Notification At Bedside MD at bedside to evaluate pushing, FHTs. ERIES TECHNICIAN Provider Notification - Yanira Pena RN - 08/16/2017 11:45 PM FISHERIES TECHNICIAN 08/16/17 2345 Provider Notification Provider Name/Title Dr. Zacarias Method of Notification Phone MD called in to evaluate FHT rate, pushing. ERIES TECHNICIAN Provider Notification - Yanira Pena RN - 08/16/2017 10:20 PM FISHERIES TECHNICIAN 08/16/17 2220 Provider Notification Provider Name/Title Dr. [...] and to call when needed for delivery. ERIES TECHNICIAN Provider Notification - Katey Godwin RN - 08/16/2017 7:34 PM FISHERIES TECHNICIAN 08/16/17 1932 Provider Notification Provider Name/Title Dr [...] will assume all cares at that time. ERIES TECHNICIAN Provider Notification - Katey Godwin RN - 08/16/2017 4:54 PM FISHERIES TECHNICIAN 08/16/17 1645 Provider Notification Provider Name/Title Dr Villar Method of Notification Phone Request Evaluate - Remote Notification Reason Status Update;SVE (Pitocin running at 1 abimael-unit) ERIES TECHNICIAN Provider Notification - Katey Godwin RN - 08/16/2017 2:56 PM FISHERIES TECHNICIAN 08/16/17 4786 Provider Notification Provider Name/Title Dr Villar Method of Notification Phone Request Evaluate - Remote Notification Reason SVE;Status Update MD updated of SVE no change. Pt now very uncomfortable, rates 6/10. Fentanyl given. IV flushing. OK for epidural at any time. Will continue to monitor and update as needed. ERIES TECHNICIAN Plan of Care - Katey Godwin RN - 08/16/2017 1:06 PM CST Patient off monitors to ambulate hallways. Instructed to notify nurse if patient notices any significant changes in condition. ERIES TECHNICIAN Provider Notification - Katey Godwin RN - 08/16/2017 12:26 PM FISHERIES TECHNICIAN 08/16/17 1215 Provider Notification Provider Name/Title Dr Villar Method of Notification Phone Request Evaluate - Remote Notification Reason Patient Arrived;Status Update MD to come for AROM, intrapartum orders placed ERIES TECHNICIAN Provider Notification - Yanira Pena RN - 08/16/2017 8:30 AM FISHERIES TECHNICIAN 08/16/172032 Provider Notification Provider Name/Title Dr. Zacarias Method of Notification Phone Request Evaluate - Remote Notification Reason Other (Comment) MD called to ask about a medication that she ordered with previous nurse. MD discontinued that Medication, and ordered po Prilosec 20 mg BID , start when patient's nausea after emesis feels better. Call MD with any questions or when needed. ERIES TECHNICIAN documented in this encounter Plan of Treatment Not on filedocumented as of this encounter Procedures Procedure Name Priority Date/Time Associated Comments Diagnosis HEMOGLOBIN Routine 08/18/2017 7:05 AM Results f or this FISHERIES TECHNICIAN procedure are i n the results section. GLUCOSE BY METER Routine 08/17/2017 6:35 AM Resul ts for this FISHERIES TECHNICIAN procedure are i n the results section. SECTION 08/17/2017 12:20 section AM FISHERIES TECHNICIAN GLUCOSE BY METER Routine 08/16/2017 10:35 Results for this PM FISHERIES TECHNICIAN procedure are i n the results section. GLUCOSE BY METER Routine 08/16/2017 8:37 PM Resul ts for this FISHERIES TECHNICIAN procedure are i n the results section. GLUCOSE BY METER Routine 08/16/2017 6:28 PM Resul ts for this FISHERIES TECHNICIAN procedure are i n the results section. PROTEIN RANDOM URINE STAT 08/16/2017 5:30 PM R esults for this FISHERIES TECHNICIAN procedure are i n the results section. CREATININE URINE Routine 08/16/2017 5:30 PM Resul ts for this CALCULATION ONLY (LAB FISHERIES TECHNICIAN proced ure are in ONLY) the results section. GLUCOSE BY METER Routine 08/16/2017 5:14 PM Resul ts for this FISHERIES TECHNICIAN procedure are i n the results section. CBC WITH PLATELETS & STAT 08/16/2017 11:45 Res ults for this DIFFERENTIAL AM FISHERIES TECHNICIAN procedure are i n the results section. URIC ACID STAT 08/16/2017 11:45 Results for this AM FISHERIES TECHNICIAN procedure are i n the results section. AST STAT 08/16/2017 11:45 Results for this AM FISHERIES TECHNICIAN procedure are i n the results section. ANTI TREPONEMA STAT 08/16/2017 11:45 Results f or this AM FISHERIES TECHNICIAN procedure are i n the results section. ALT STAT 08/16/2017 11:45 Results for this AM FISHERIES TECHNICIAN procedure are i n the results section. ABO/RH TYPE AND STAT 08/16/2017 11:45 Results for this SCREEN AM FISHERIES TECHNICIAN procedure are i n the results section. BASIC METABOLIC PANEL STAT 08/16/2017 11:45 Re sults for this AM FISHERIES TECHNICIAN procedure are i n the results section. [...] encounter Results (ABNORMAL) Hemoglobin (08/18/2017 7:05 AM FISHERIES TECHNICIAN) P athologist Signature Hemoglobin 10.5 (L) 11.7 - 15.7 08/18/2017 [place] g/dL 7:56 AM [facility] Specimen Anatomical Collection Method Collection Time Receive d Time (Source) Location / / Volume Laterality Blood specimen 08/18/2017 7:05 AM 018 7:06 (specimen) FISHERIES TECHNICIAN FISHERIES TECHNICIAN Lia Zacarias MD LAB - BLOOD ORDERABLES Performing Organization Address City/State/ZIP Code Phon e Number M [facility] [address] [address] [facility] [address] [phone] (ABNORMAL) Glucose by meter (08/17/2017 6:35 AM FISHERIES TECHNICIAN) P athologist Signature Glucose 114 (H) 70 - 99 08/17/2017 POINT OF CARE mg/dL 6:40 AM FISHERIES TECHNICIAN TEST, GLUCOSE Specimen Anatomical Collection Method Collection Time Receive d Time (Source) Location / / Volume Laterality 08/17/2017 6:35 AM 8 6:40 FISHERIES TECHNICIAN AM FISHERIES TECHNICIAN Lia Zacarias MD LAB - BEK[place] POCT Performing Organization Address City/State/ZIP Code Phon e Number [facility] POINT OF CARE TEST, GLUCOSE POINT OF CARE TEST, GLUCOSE Glucose by meter (08/16/2017 10:35 PM FISHERIES TECHNICIAN) athologist Signature Glucose 70 70 - 99 08/17/2017 POINT OF CARE mg/dL 1:15 AM FISHERIES TECHNICIAN TEST, GLUCOSE Specimen Anatomical Collection Method Collection Time Receive d Time (Source) Location / / Volume Laterality 08/16/2017 10:35 08/17/2017 1:15 PM FISHERIES TECHNICIAN AM FISHERIES TECHNICIAN Marnie ALBARADO - JAMAAL POCT Performing Organization Address City/State/ZIP Code Phon e Number [facility] POINT OF CARE TEST, GLUCOSE POINT OF CARE TEST, GLUCOSE (ABNORMAL) Glucose by meter (08/16/2017 8:37 PM FISHERIES TECHNICIAN) athologist Signature Glucose 62 (L) 70 - 99 08/16/2017 POINT OF CARE mg/dL 8:40 PM FISHERIES TECHNICIAN TEST, GLUCOSE Specimen Anatomical Collection Method Collection Time Receive d Time (Source) Location / / Volume Laterality 08/16/2017 8:37 PM 8 8:40 FISHERIES TECHNICIAN PM FISHERIES TECHNICIAN Marnie Villar MD LAB - JAMAAL POCT Performing Organization Address City/State/ZIP Code Phon e Number [facility] POINT OF CARE TEST, GLUCOSE POINT OF CARE TEST, GLUCOSE Glucose by meter (08/16/2017 6:28 PM FISHERIES TECHNICIAN) athologist Signature Glucose 71 70 - 99 08/16/2017 POINT OF CARE mg/dL 6:30 PM FISHERIES TECHNICIAN TEST, GLUCOSE Specimen Anatomical Collection Method Collection Time Receive d Time (Source) Location / / Volume Laterality 08/16/2017 6:28 PM 8 6:30 FISHERIES TECHNICIAN PM FISHERIES TECHNICIAN Marnie Villar MD LAB - [place]AK[place] POCT Performing Organization Address City/[facility]/ZIP Code Phon e Number [facility] POINT OF CARE TEST, GLUCOSE POINT OF CARE TEST, GLUCOSE Creatinine urine calculation only (08/16/2017 5:30 PM FISHERIES TECHNICIAN) athologist Signature Creatinine 142 mg/dL 08/16/2017 [place] Urine 6:36 PM [facility] Specimen Anatomical Collection Method Collection Time Receive d Time (Source) Location / / Volume Laterality 08/16/2017 5:30 PM 8 6:10 FISHERIES TECHNICIAN PM FISHERIES TECHNICIAN Marnie Villar MD LAB - URINE ORDERABLES Performing Organization Address City/[facility]/ZIP Code Phon e Number M [facility] [address] [place] [address] [phone] [place] [address] [place] [address], [place] [phone] (ABNORMAL) Protein random urine with Creat Ratio (08/16/2017 5:30 PM FISHERIES TECHNICIAN) Analysis Performed At Patho logist Time Signature Protein Random 0.32 g/L 08/16/2017 [place] Urine 6:36 PM [facility] Protein Total 0.22 (H) 0 - 0.2 08/16/2017 [place] Urine g/gr g/g Cr 6:36 PM [facility] Specimen Anatomical Collection Method Collection Time Receive d Time (Source) Location / / Volume Laterality Urine specimen URINE SPECIMEN 08/16/2017 5:30 PM 08/16 6:10 (specimen) OBTAINED BY CLEAN FISHERIES TECHNICIAN PM FISHERIES TECHNICIAN CATCH PROCEDURE / Unknown Marnie Villar MD LAB - URINE ORDERABLES Performing Organization Address City/[facility]/ZIP Code Phon e Number M [facility] [address] [place] [address] [place] [address] [place] [address], [place] [phone] (ABNORMAL) Glucose by meter (08/16/2017 5:14 PM FISHERIES TECHNICIAN) P athologist Signature Glucose 69 (L) 70 - 99 08/16/2017 POINT OF CARE mg/dL 5:21 PM FISHERIES TECHNICIAN TEST, GLUCOSE Specimen Anatomical Collection Method Collection Time Receive d Time (Source) Location / / Volume Laterality 08/16/2017 5:14 PM 8 5:21 FISHERIES TECHNICIAN PM FISHERIES TECHNICIAN Marnie Villar MD LAB - BEAKER POCT Performing Organization Address City/[facility]/ZIP Code Phon e Number [facility] POINT OF CARE TEST, GLUCOSE POINT OF CARE TEST, GLUCOSE Uric acid (08/16/2017 11:45 AM FISHERIES TECHNICIAN) athologist Signature Uric Acid 5.8 2.6 - 6.0 08/16/2017 [facility] mg/dL 12:40 PM [facility] Specimen Anatomical Collection Method Collection Time Receive d Time (Source) Location / / Volume Laterality Blood specimen 08/16/2017 11:45 8 (specimen) AM FISHERIES TECHNICIAN 12:18 PM FISHERIES TECHNICIAN Marnie Villar MD LAB - BLOOD ORDERABLES Performing Organization Address City/[facility] Phon e Number M [facility] [address] [address] [facility] [address] [phone] (ABNORMAL) Basic metabolic panel (08/16/2017 11:45 AM FISHERIES TECHNICIAN) athologist Signature Sodium 138 133 - 144 08/16/2017 [place] mmol/L 12:40 PM [facility] Potassium 4.1 3.4 - 5.3 08/16/2017 [facility] mmol/L 12:40 PM [facility] Chloride 106 94 - 109 08/16/2017 [facility] mmol/L 12:40 PM [facility] Carbon Dioxide 23 20 - 32 08/16/2017 [place] mmol/L 12:40 PM [facility] Anion Gap 9 3 - 14 08/16/2017 [facility] mmol/L 12:40 PM [facility] Glucose 64 (L) 70 - 99 08/16/2017 [place] mg/dL 12:40 PM [facility] Urea Nitrogen 12 7 - 30 08/16/2017 [place] mg/dL 12:40 PM [facility] Creatinine 0.79 0.52 - 08/16/2017 [facility] 1.04 mg/dL 12:40 PM [facility] GFR Estimate 85 >60 08/16/2017 [place] mL/min/1.7 12:[address] Comment: Non GFR Calc GFR Estimate If >90 >60 mL/min/1.7m2 08/16/2017 12:40 PM [facility] Comment: GFR Calc Calcium 8.6 8.5 - 10.1 mg/dL 08/16/2017 12:40 PM [facility] Specimen Anatomical Collection Method Collection Time Receive d Time (Source) Location / / Volume Laterality Blood specimen 08/16/2017 11:45 8 (specimen) AM FISHERIES TECHNICIAN 12:18 PM FISHERIES TECHNICIAN Marnie Villar MD LAB - BLOOD ORDERABLES Performing Organization Address City/State/ZIP [facility] Phon e Number [facility] [address], [place] [address] [address] [address] [address] [place], [place] [address], [facility] [phone] ALT (08/16/2017 11:45 AM FISHERIES TECHNICIAN) P athologist Signature ALT 13 0 - 50 U/L 08/16/2017 [facility] 12:40 PM [facility] Specimen Anatomical Collection Method Collection Time Receive d Time (Source) Location / / Volume Laterality Blood specimen 08/16/2017 11:45 8 (specimen) AM FISHERIES TECHNICIAN 12:18 PM FISHERIES TECHNICIAN Marnie Villar MD LAB - BLOOD ORDERABLES Performing Organization Address City/State/ZIP [facility] Phon e Number [facility] [address], [place] [address] [place] [address] [address] [address], [facility] [phone] AST (08/16/2017 11:45 AM FISHERIES TECHNICIAN) P athologist Signature AST 21 0 - 45 U/L 08/16/2017 [facility] 12:40 PM [facility] Specimen Anatomical Collection Method Collection Time Receive d Time (Source) Location / / Volume Laterality Blood specimen 08/16/2017 11:45 8 (specimen) AM FISHERIES TECHNICIAN 12:18 PM FISHERIES TECHNICIAN Marnie Villar MD LAB - BLOOD ORDERABLES Performing Organization Address City/[facility]/ZIP Code Phon e Number M [facility] [address], [place] [address] [facility] [address] [place], [place] [address], [facility] [phone] ABO/Rh type and screen (08/16/2017 11:45 AM FISHERIES TECHNICIAN) [facility] Method Time Signature ABO A 08/16/2017 [place] 1:02 PM [facility] RH(D) Pos [facility] Antibody Neg 08/16/2017 [place] Screen 1:02 PM [facility] Test Valid B[place] 08/16/2017 [facility] Only At [facility] 12:53 PM [facility] Specimen 08/19/2017 08/16/2017 [place] Expires 12:53 PM [facility] Specimen Anatomical Collection Method Collection Time Receive d Time (Source) Location / / Volume Laterality Blood specimen 08/16/2017 11:45 8 (specimen) AM FISHERIES TECHNICIAN 12:18 PM FISHERIES TECHNICIAN Marnie Villar MD LAB - BLOOD BANK TEST ORDER Performing Organization Address [facility] Phon e Number M [facility] [address], [place] [address] [facility] [address] [place], [place] [address] [phone] CBC with platelets differential (08/16/2017 11:45 AM FISHERIES TECHNICIAN) [facility] Method Time Signature WBC 8.7 4.0 - 08/16/2017 [facility] 11.0 12:24 PM [facility] 10e9/L [facility] RBC Count 5.07 3.8 - 5.2 08/16/2017 [place] 10e12/L 12:24 PM [facility] Hemoglobin 13.7 11.7 - 08/16/2017 [facility] 15.7 g/dL 12:24 PM [facility] Hematocrit 43.3 35.0 - 08/16/2017 [facility] 47.0 % 12:24 PM [facility] MCV 85 78 - 100 08/16/2017 [facility] fl 12:24 PM [facility] MCH 27.0 26.5 - 08/16/2017 [facility] 33.0 pg 12:24 PM [facility] MCHC 31.6 31.5 - 08/16/2017 [facility] 36.5 g/dL 12:24 PM [facility] RDW 14.4 10.0 - 08/16/2017 [facility] 15.0 % 12:24 PM [facility] Platelet Count 272 150 - 450 08/16/2017 [facility] 10e9/L 12:24 [facility] Diff Method Automated 08/16/2017 [facility] Method 12:24 [facility] % Neutrophils 70.6 % 08/16/2017 [facility] 12:24 [facility] % Lymphocytes 19.1 % 08/16/2017 [facility] 12:24 [facility] % Monocytes 8.1 % 08/16/2017 [facility] 12:24 PM [facility] % Eosinophils 1.3 % 08/16/2017 [facility] 12:24 PM [facility] % Basophils 0.3 % 08/16/2017 [facility] 12:24 PM [facility] % Immature 0.6 % 08/16/2017 [facility] Granulocytes 12:24 PM [facility] Nucleated RBCs 0 0 /100 08/16/2017 [facility] 12:24 PM [facility] Absolute 6.1 1.6 - 8.3 08/16/2017 [facility] Neutrophil 10e9/L 12:24 PM [facility] Absolute 1.7 0.8 - 5.3 08/16/2017 [facility] Lymphocytes 10e9/L 12:24 PM [facility] Absolute 0.7 0.0 - 1.3 08/16/2017 [facility] Monocytes 10e9/L 12:24 PM [facility] Absolute 0.1 0.0 - 0.7 08/16/2017 [facility] Eosinophils 10e9/L 12:24 [facility] Absolute 0.0 0.0 - 0.2 08/16/2017 [facility] Basophils 10e9/L 12:24 PM [facility] Abs Immature 0.1 0 - 0.4 08/16/2017 [facility] Granulocytes 10e9/L 12:24 PM [facility] Absolute 0.0 08/16/2017 [facility] Nucleated RBC 12:24 PM [facility] Specimen Anatomical Collection Method Collection Time Receive d Time (Source) Location / / Volume Laterality Blood specimen 08/16/2017 11:45 8 (specimen) AM FISHERIES TECHNICIAN 12:19 PM FISHERIES TECHNICIAN Marnie Villar MD LAB - BLOOD ORDERABLES Performing Organization Address City/[facility]/ZIP Code Phon e Number [facility] [address], [place] [address] [facility] [address] [phone] Anti Treponema (08/16/2017 11:45 AM FISHERIES TECHNICIAN) Analysis Performed At Patho logist Time Signature Treponema Negative NEG^Negati 08/17/2017 [facility] 10:36 AM [facility] Specimen Anatomical Collection Method Collection Time Receive d Time (Source) Location / / Volume Laterality Blood specimen 08/16/2017 11:45 8 (specimen) AM FISHERIES TECHNICIAN 12:19 PM FISHERIES TECHNICIAN Marnie Villar MD LAB - BLOOD ORDERABLES Performing Organization Address City/State/ZIP Code Phon e Number [address] [address] [facility] Group B strep PCR (07/17/2017) athologist Signature [...] - BLOOD ORDERABLES Chlamydia trachomatis PCR (01/25/2017) [facility] Method Time Signature Chlamydia Negative Trachomatis PCR Patient Reported LAB - MICRO GENERAL ORDERABL ES Anti Treponema (01/25/2017) [facility] Method Time Signature Treponema Non Reactive pallidum [...] (TYLENOL) tablet 650 Given 08/20/2017 8:42 AM FISHERIES TECHNICIAN 650 mg mg 650 mg, Oral, EVERY [...] (TUMS) chewable tablet 500 Given 5:55 PM FISHERIES TECHNICIAN 500 mg mg 500 mg, Oral, DAILY PRN, heartburn, Starting on 08/16/17 at 1750 carboprost (HEMABATE) injection 250 mcg 250 mcg, Intramuscular, ONCE PRN, postpa rtum hemorrhage, Starting on 08/17/17 at 0153, For 1 dose, Start IF HEMORRHAGE, Post -procedure dextrose 5% in lactated ringers New Bag 08/17/2017 10:58 AM FISHERIES TECHNICIAN 125 mL/hr infusion at 125 mL/hr, Intravenous, [...] mg 0.3-0.5 mg, Intravenous, EVERY 30 MIN MD N, severe pain, Starting on 08/17/17 at 0153, Offer at least every 2 hours. Notify provider fo r new orders if agent ineffective. Hold while on FIELD PARTY MANAGER. For ordered doses up t o 4 [...] tablet 800 mg Given 08/20/2017 8:42 AM FISHERIES TECHNICIAN 800 mg 800 mg, Oral, EVERY 6 HOURS PRN, cramping, Starting on 08/18/17 at 0400, Max dose: 3200 mg/day., Post-procedure Given 08/19/2017 10:40 PM FISHERIES TECHNICIAN 800 mg Given 08/19/2017 4:34 PM FISHERIES TECHNICIAN 800 mg lactated ringers BOLUS 1,000 mL [...] capsule 20 mg Given 08/16/2017 9:43 PM FISHERIES TECHNICIAN 20 mg 20 mg, Oral, 2 TIMES [...] analgesic side effe cts. Hold while on FIELD PARTY MANAGER or with regular IV opioid dosing. Maximum t otal is 80 mg in 24 hours., Post-procedure oxytocin (PITOCIN) 30 units in New Bag 08/17/2017 3:03 AM FISHERIES TECHNICIAN 100 mL/hr 100 mL/hr 500 mL 0.9% [...] Post-procedure senna-docusate (SENOKOT-S;PERICOLACE) Given 08/19/2017 10:40 PM FISHERIES TECHNICIAN 1 tablet 8.6-50 MG per tablet 1 tablet 1 tablet, Oral, 2 TIMES DAILY PRN, constipation, Starting on 08/17/17 at 0153, If no bowel movement in 24 hours, increase to 2 tablets PO. Hold for loose stools. Preferred agent for constipation related to opioids., Post-procedure Given 08/18/2017 8:24 AM FISHERIES TECHNICIAN 1 tablet senna-docusate (SENOKOT-S;PERICOLACE) Given 08/20/2017 8:[address] 2 tablets 8.6-50 MG per tablet 2 tablet 2 tablet, Oral, 2 TIMES DAILY PRN, constipation, Starting on 08/17/17 at 0153, Hold for loose stools. Preferred agent for constipation related to opioids., Post-procedure Given 08/19/2017 8:40 AM FISHERIES TECHNICIAN 2 tablets Given 08/18/2017 10:32 PM FISHERIES TECHNICIAN 2 tablets simethicone (MYLICON) chewable tablet 80 [...] Recently Administered Medications Times are shown in FISHERIES TECHNICIAN. Scheduled Medication Order 08/18/2017 08/19/2017 08/20/2017 acetaminophen [...] First dose on Sat08/16/17 at 2115 Tdap (isihjgt-dfpsuezqvn-olkcn pertussis) (ADACEL) inj ection 0.5 mL 1354 [...] mg 0.3-0.5 mg, Intravenous, EVERY 30 MIN MD N, severe pain, Starting on 08/17/17 at 0153, Offer at least every 2 hours. Notify provider for new orders if agent ineffective. Hold while on FIELD PARTY MANAGER. For ordered doses up to 4 mg [...] Welsh RN)1634 (See Alternative - Provider: Yane Hodlen RN)2240 (See Alternative - Provider: Silva Mabry LPN) 0842 (See Alternative - Provider: Mary Jane Welhs RN) 600 mg, Oral, EVERY 6 HOURS [...] or analgesic side effects. Hold while on FIELD PARTY MANAGER or with regular IV opioid dosing. Maximum [...] Provider: Lucia Pratt RN)2231 (Given - Provider: Daina Vargas RN) 0840 (Given - Provider: Mary [...]
Post-procedure documented in this encounter Care Teams Milk Handler Relationship Specialty Start Date End Date Leela Ruano MD PCP - General [facility] Practice 08/06/17 [facility] [address] [address] [place] [id number] documented as of this encounter
--- OUTSIDE RECORDS SUMMARY | 2022-03-09 15:00 | XMS_ITS | Encounter Summary ---
:1985 Author Organization [place] Address [facility] 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 Thank you, Amber Smith Central Scheduling [phone] documented in this encounter Plan of Treatment Not on filedocumented as of this encounter Visit Diagnoses Not on filedocumented in this encounter
--- OUTSIDE RECORDS SUMMARY | 2022-03-09 15:00 | XMS_ITS | Encounter Summary ---
:1985 Author Organization [place] Address [address] [place] [address] Care Team Providers Name Role Phone Leela Ruano MD Primary Care Provider Reason for Visit Reason Comments LAB RESULTS Encounter Details Date Type Department Care Team Description 12/19/2021 Telephone [facility] [address] Emma Branham MD LAB RESULTS Endocrinology [address] [place] [address] [place], [place] [address] [phone] Social History Tobacco Use Types Packs/Day Years [...] documented as of this encounter Nursing Notes Caron Carty, RN - 12/19/2021 10:21 AM CDT [...] thyroid lab during . Emma Branham MD Thread Cutter [facility] documented in this encounter Plan of Treatment Not on filedocumented as of this encounter Visit Diagnoses Not on filedocumented in this encounter Care Teams Media Relations Associate Relationship Specialty Start Date End Date Leela Ruano MD PCP - General 10/31/10 [address] [place] [id number] documented as of this encounter
--- OUTSIDE RECORDS SUMMARY | 2022-03-09 15:00 | XMS_ITS | Encounter Summary ---
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
--- OUTSIDE RECORDS SUMMARY | 2022-03-09 15:00 | XMS_ITS | Encounter Summary ---
:1985 [address] [employer] Address [address] [place] [address] Care Team Providers Name Role Phone Leela Ruano MD Primary Care Provider Encounter Details Date Type Department Care Team Description 01/12/2022 Orders Only [facility] DEPARTMENT Provider, Adela wellington [place] [address] Social History Tobacco Use Types Packs/Day Years [...] on filedocumented in this encounter Care Teams Human Resource Manager Relationship Specialty Start Date End Date Leela Ruano MD PCP - General 10/31/10 [id number] [address] [place] [id number] documented as of this encounter
--- OUTSIDE RECORDS SUMMARY | 2022-03-09 15:00 | XMS_ITS | Encounter Summary ---
:1985 Author Organization [place] Address [facility] [address] Care Team Providers Name Role Phone Leela Ruano MD Primary Care Provider Reason for Visit Auth/Cert Specialty Diagnoses / Procedures Referred By Contact Refer red To Contact mat puncher Diagnoses Rh Labor And Delivery Procedures LABOR AND DELIVERY [address], [place] [address] Phone: Fax: Referral ID Status Reason Start Date Expiration Date Visits Requ ested Visits Authorized [id number] 1 1 Encounter Details Date Type Department Care Team Description 08/16/2017 Anesthesia Event [facility] Miller Levine, Birthplace [address] [place], [place] ANESTHESIA [address] [facility] [phone] [address] [place], [place] [address] (Wo rk) Anesthesia Record [...] 0119 by Catheter intact Taran Marie APRN SPECIAL AGENT Peripheral IV 08/16/17; 1145; 18 G; 08/16/17 [...] at Date Recorded Female 08/03/2021 2:35 PM BRANCH LENDING OFFICER documented as of this encounter OR Notes [...] Walls MD August 17, 2017 7:39 AM CH LENDING OFFICER Anesthesia Procedure Notes - Juan Pablo Levine MD - 08/16/2017 4:05 PM BRANCH LENDING OFFICER Associated Order(s): ANE EPIDURAL BLOCK Peripheral nerve/Neuraxial [...] signs of intravascular, subdural or intrathecal injection. CH LENDING OFFICER Anesthesia Preprocedure Evaluation - Juan Pablo Levine [...] benefits and alternatives discussed with: Patient.. . CH LENDING OFFICER documented in this encounter Miscellaneous Notes Addendum Note - Shoaib Walls MD - 08/17/2017 7:39 AM CST Addendum created 08/17/17 0739 by Shoaib Walls MD Sign clinical note CH LENDING OFFICER documented in this encounter Plan of Treatment Not on filedocumented as of this encounter Procedures Procedure Name Priority Date/Time Associated Diagnosis Comme nts ANE EPIDURAL BLOCK Routine 08/16/2017 4:06 PM BRANCH LENDING OFFICER Procedure Note - Dwight Levine MD - [...] 0.25% PF (epidural) Given 08/16/2017 3:56 PM BRANCH LENDING OFFICER 10 mLs EPIDURAL, PRN, Starting on Sat08/16/17 at 1556, Anesthesia Intra-op documented in this encounter Care Teams Ceo Ziff Davis Relationship Specialty Start Date End Date Leela Ruano MD PCP - General [facility] Practice 08/06/17 [facility] [address] [place] [address] [id number] documented as of this encounter
--- OUTSIDE RECORDS SUMMARY | 2022-03-09 15:00 | XMS_ITS | Encounter Summary ---
:1985 Author Organization [facility] Address [facility]ly [facility] [place] [address] Care Team Providers Name Role Phone Leela Ruano MD Primary Care Provider Reason for Visit Reason Comments Induction Of Labor Auth/Cert Specialty Diagnoses / Procedures Referred By Contact Refer red To Contact suit maker Diagnoses Rh Labor And Delivery Procedures LABOR AND DELIVERY [address] [place], [place] [address] Phone: Fax: Referral ID Status Reason Start Date Expiration Date Visits Requ ested Visits Authorized [id number] 1 1 Encounter Details Date Type Department Care Team Description 08/16/2017 - [facility] Marnie Villar MD SENIOR [facility]ITY [facility] [address] [facility] [address] [place] [address] delivery 08/20/2017 Encounter [facility] Lia Zacarias MD [facility]STETR[facility]YNEC[facility]Y [facility] [address] [facility] [address] [place], [place] [id number] delivered (Primary [address]) [place] [address] Social History Tobacco Use Types Packs/Day Years Used Date Former Smoker Smokeless Tobacco: Never Used Alcohol Use Standard Drinks/Week Comments No 0 (1 standard drink = 0.6 oz pure alcoho l) Sex Assigned at Date Recorded Female 08/03/2021 2:35 PM INSTRUCTIONAL SERVICES SPECIALIST documented as of this encounter Last Filed Vital Signs Vital Sign Reading Time Taken Comments Blood Pressure 137/90 08/20/2017 8:34 AM INSTRUCTIONAL SERVICES SPECIALIST Pulse - - Temperature 36.5 ??C (97.7 ??F) 08/20/2017 8:34 AM INSTRUCTIONAL SERVICES SPECIALIST Respiratory Rate 18 08/20/2017 8:34 AM INSTRUCTIONAL SERVICES SPECIALIST Oxygen Saturation 96% 08/17/2017 8:20 AM INSTRUCTIONAL SERVICES SPECIALIST Inhaled Oxygen Concentration - - Weight 83.5 kg (184 lb) 08/16/2017 11:00 AM INSTRUCTIONAL SERVICES SPECIALIST Height 162.6 cm (5' 4) 08/16/2017 11:00 AM INSTRUCTIONAL SERVICES SPECIALIST Body Mass Index 31.58 08/16/2017 11:00 AM INSTRUCTIONAL SERVICES SPECIALIST documented in this encounter Discharge Summaries Lia Zacarias MD - 08/16/2017 10:52 AM CST Post-Operative Note and Discharge Summary Leodan Milligan Date of : 1985 Age: [age] year old Date of Admission: 08/16/2017 Date of Discharge: 08/20/2017 1:00 PM Admitting Physician: Lia Zacarias MD Discharge Physician: Lia Zacarias MD Discharging Service: Obstetrics and Gynecology Home clinic: [facility] Admission Diagnoses: Indication for care in [...] provider in 6 weeks Lia Zacarias MD RUCTIONAL SERVICES SPECIALIST documented in this encounter Discharge Instructions Discharge InstructionsSoco HutchisonALVARO - 08/20/2017 10:38 AM CST Postop Instructions LsiemwvxaLdxb-[phone] [facility]-[phone] Activity ?? Do not lift more than [...] questions or concerns after you return home. RUCTIONAL SERVICES SPECIALIST documented in this encounter Medications at Time [...] Discharge home prec reviewed RTC 6 weeks RUCTIONAL SERVICES SPECIALIST Marcie Sun PA-C - 08/19/2017 8:48 AM CST # 2 Post op . 40 2/7 weeks. Gest Diabetic. LGA. Pt states doing well. Nursing. Pain well controlled. Afebrile VSS. Hgb 10.5. Fundus firm light flow. Incision dry and intact. Passing flatus. Voiding w/o problems. Ext: w trace edema no pain. Normal postop course. Plan routine postop care. Plan to discharge to home 08/20. RUCTIONAL SERVICES SPECIALIST Associated attestation - Asuncion Barnes MD - 08/19/2017 11:09 AM INSTRUCTIONAL SERVICES SPECIALIST Physician Attestation I agree with the information in this note. Memo Alex MD - 08/18/2017 8:47 AM CST Afebrile. Abdomen is soft nontender. Dressing removed, incision is clean and dry. Tolerating diet, good pain control. Afebrile for 24 hours. Imp normal post op course. Plan Discontinue IV antibiotics. RUCTIONAL SERVICES SPECIALIST Memo Rosado MD - 08/17/2017 8:26 AM CST Mild elevation of temperature to 101.2 after her surgery, now on clindamycin and gent. No complaintsre incision. Tolerating diet, good pain control. Imp Post op c section Plan Continue antibiotics for at least 24 hours, otherwise routine post operative care. RUCTIONAL SERVICES SPECIALIST Lia Zacarias MD - 08/17/2017 12:18 AM [...] primary section. Consent signed. Lia Zacarias MD RUCTIONAL SERVICES SPECIALIST Marnie Villar MD - 08/16/2017 12:33 PM [...] labs pending. 3. GBS negative. Marnie Villar RUCTIONAL SERVICES SPECIALIST documented in this encounter H&P Notes Lia [...] FHT--175, moderate LTV, no accels, no decels Alicia---ctx every 1-3 min Data: All laboratory data reviewed Lia Zacarias MD Marnie Gallo MD - 08/16/2017 12:33 PM CST No significant change in general health status based on examination of the patient, review of Nursing Admission Database and record. EFW: 8lb 8oz Marnie Villar RUCTIONAL SERVICES SPECIALIST documented in this encounter Consult Notes Luther Dale LSW - 08/19/2017 11:52 AM CST D) SW responding to automatic referral, met with Leodan and Jovi who are and reside in [place]. Their baby Charleen is their first and is in the NICU for respiratory distress. They are prepared for her at home and are not on WIC. Leodan has 6 weeks off work and Jovi has one week off. Leodan's mother who lives in [place] will live with the couple for awhile [...] family while Charleen is in the NICU. RUCTIONAL SERVICES SPECIALIST documented in this encounter Miscellaneous Notes Note [...] follow up phone call within a week. RUCTIONAL SERVICES SPECIALIST Plan of Care - Mary Jane Welsh [...] present. Plan: Anticipate discharge home with . RUCTIONAL SERVICES SPECIALIST Plan of Care - Bhavesh Moya RN [...] present and supportive, bonding well with . RUCTIONAL SERVICES SPECIALIST Plan of Care - Yane Holden RN [...] and very attentive to pt and . RUCTIONAL SERVICES SPECIALIST Note - Soco Santoro RN - 08/19/2017 [...] pump. Will continue to follow and support. RUCTIONAL SERVICES SPECIALIST Plan of Care - Mary Jane Welsh RN - 08/19/2017 12:59 PM CST Problem: Patient Care Overview Goal: Plan of Care/Patient Progress Review Patient meeting expected goals this shift. Pain controlled with use of oral pain medications. Incision open to air, well-approximated. Up ad suzanne, ambulating to NICU to be with baby. RUCTIONAL SERVICES SPECIALIST Note - Soco Santoro RN - 08/19/2017 [...] shield. Will continue to follow and support. RUCTIONAL SERVICES SPECIALIST Plan of Care - Parris Medrano RN [...] sent EBM to NICU. Meeting expected goals. RUCTIONAL SERVICES SPECIALIST Plan of Care - Dania Vargas RN [...] Continue to monitor per pt care plan. RUCTIONAL SERVICES SPECIALIST Plan of Care - Lucia Pratt RN - 08/18/2017 1:27 PM CST Problem: Patient Care Overview Goal: Plan of Care/Patient Progress Review Outcome: Improving VSS. Antibiotics discontinued this morning per Dr. Rosado, IV removed. Pain well controlled with oral tylenol and ibuprofen. Pt in NICU frequently this shift with . Using breastpump. Will continue to monitor. RUCTIONAL SERVICES SPECIALIST Plan of Care - Parris Medrano RN [...] to increase milk supply. Meeting expected goals. RUCTIONAL SERVICES SPECIALIST Plan of Care - Dania Vargas RN [...] provided. Contnue to monitor per care plan. RUCTIONAL SERVICES SPECIALIST Plan of Care - Amanda Landin RN [...] been afebrile this shift. Support persons present. RUCTIONAL SERVICES SPECIALIST Provider Notification - Amanda Landin RN - 08/17/2017 8:20 AM CST 08/17/17 0820 Provider Notification Provider Name/Title Dr. Rosado Method of Notification At Bedside Dr. Rosado at bedside. Plan to take pandya out at lunch time and get pt up and moving. MD updated that pt is on IV Clindamycin and IV Gentamycin--temps improving. MD assessed pt--POC reviewed. All questions answered. RUCTIONAL SERVICES SPECIALIST Provider Notification - Yanira Pena RN - 08/17/2017 5:20 AM INSTRUCTIONAL SERVICES SPECIALIST 08/17/17 0520 Provider Notification Provider Name/Title Dr. [...] Gentamycin for 24 hours, then will re-evaluate. RUCTIONAL SERVICES SPECIALIST Plan of Care - Yanira Pena RN [...] Response: Patient tolerated transfer and is stable. RUCTIONAL SERVICES SPECIALIST Plan of Care - Yanira Pena RN - 08/17/2017 3:10 AM CST Went down to NICU with to see baby in NICU. RUCTIONAL SERVICES SPECIALIST Op Note - Lia Zacarias MD - [...] MD MT: LO Name: LEODAN MILLIGAN Account: [id number] : 1985 Procedure Date: 08/17/2017 Document: [id number] RUCTIONAL SERVICES SPECIALIST Brief Op Note - Lia Zacarias MD - 08/17/2017 1:29 AM INSTRUCTIONAL SERVICES SPECIALIST [facility] Brief Operative Note Pre-operative diagnosis: 32yo [...] for mild respiratory distress. Lia Zacarias MD RUCTIONAL SERVICES SPECIALIST Provider Notification - Yanira Pena RN - 08/17/2017 12:15 AM INSTRUCTIONAL SERVICES SPECIALIST 08/17/17 0015 Provider Notification Provider Name/Title Dr. Zacarias Method of Notification At Bedside MD talking with patient regarding possible need for C/S, possible risks and benefits. Will have consent ready to sign for patient in agreement. RUCTIONAL SERVICES SPECIALIST Provider Notification - Yanira Pena, SARAH - 08/17/2017 12:00 AM INSTRUCTIONAL SERVICES SPECIALIST 08/17/17 0000 Provider Notification Provider Name/Title Dr. Zacarias Method of Notification At Bedside MD at bedside to evaluate pushing, FHTs. RUCTIONAL SERVICES SPECIALIST Provider Notification - Yanira Pena RN - 08/16/2017 11:45 PM INSTRUCTIONAL SERVICES SPECIALIST 08/16/17 2345 Provider Notification Provider Name/Title Dr. Zacarias Method of Notification Phone MD called in to evaluate FHT rate, pushing. RUCTIONAL SERVICES SPECIALIST Provider Notification - Yanira Pena RN - 08/16/2017 10:20 PM INSTRUCTIONAL SERVICES SPECIALIST 08/16/170 Provider Notification Provider Name/Title Dr. Zacarias [...] and to call when needed for delivery. RUCTIONAL SERVICES SPECIALIST Provider Notification - Katey Godwin RN - 08/16/2017 7:34 PM INSTRUCTIONAL SERVICES SPECIALIST 08/16/17 1932 Provider Notification Provider Name/Title Dr [...] will assume all cares at that time. RUCTIONAL SERVICES SPECIALIST Provider Notification - Katey Godwin RN - 08/16/2017 4:54 PM INSTRUCTIONAL SERVICES SPECIALIST 08/16/17 1645 Provider Notification Provider Name/Title Dr Villar Method of Notification Phone Request Evaluate - Remote Notification Reason Status Update;SVE (Pitocin running at 1 abimael-unit) RUCTIONAL SERVICES SPECIALIST Provider Notification - Katey Godwin RN - 08/16/2017 2:56 PM INSTRUCTIONAL SERVICES SPECIALIST 08/16/17 2416 Provider Notification Provider Name/Title Dr Villar Method of Notification Phone Request Evaluate - Remote Notification Reason SVE;Status Update MD updated of SVE no change. Pt now very uncomfortable, rates 6/10. Fentanyl given. IV flushing. OK for epidural at any time. Will continue to monitor and update as needed. RUCTIONAL SERVICES SPECIALIST Plan of Care - Katey Godwin RN - 08/16/2017 1:06 PM CST Patient off monitors to ambulate hallways. Instructed to notify nurse if patient notices any significant changes in condition. RUCTIONAL SERVICES SPECIALIST Provider Notification - Katey Godwin RN - 08/16/2017 12:26 PM INSTRUCTIONAL SERVICES SPECIALIST 08/16/17 1215 Provider Notification Provider Name/Title Dr Villar Method of Notification Phone Request Evaluate - Remote Notification Reason Patient Arrived;Status Update MD to come for AROM, intrapartum orders placed RUCTIONAL SERVICES SPECIALIST Provider Notification - Yanira Pena, RN - 08/16/2017 8:30 AM INSTRUCTIONAL SERVICES SPECIALIST 08/16/172032 Provider Notification Provider Name/Title Dr. Zacarias Method of Notification Phone Request Evaluate - Remote Notification Reason Other (Comment) MD called to ask about a medication that she ordered with previous nurse. MD discontinued that Medication, and ordered po Prilosec 20 mg BID , start when patient's nausea after emesis feels better. Call MD with any questions or when needed. RUCTIONAL SERVICES SPECIALIST documented in this encounter Plan of Treatment Not on filedocumented as of this encounter Procedures Procedure Name Priority Date/Time Associated Comments Diagnosis HEMOGLOBIN Routine 08/18/2017 7:05 AM Results f or this INSTRUCTIONAL SERVICES SPECIALIST procedure are i n the results section. GLUCOSE BY METER Routine 08/17/2017 6:35 AM Resul ts for this INSTRUCTIONAL SERVICES SPECIALIST procedure are i n the results section. SECTION 08/17/2017 12:20 section AM INSTRUCTIONAL SERVICES SPECIALIST GLUCOSE BY METER Routine 08/16/2017 10:35 Results for this PM INSTRUCTIONAL SERVICES SPECIALIST procedure are i n the results section. GLUCOSE BY METER Routine 08/16/2017 8:37 PM Resul ts for this INSTRUCTIONAL SERVICES SPECIALIST procedure are i n the results section. GLUCOSE BY METER Routine 08/16/2017 6:28 PM Resul ts for this INSTRUCTIONAL SERVICES SPECIALIST procedure are i n the results section. PROTEIN RANDOM URINE STAT 08/16/2017 5:30 PM R esults for this INSTRUCTIONAL SERVICES SPECIALIST procedure are i n the results section. CREATININE URINE Routine 08/16/2017 5:30 PM Resul ts for this CALCULATION ONLY (LAB INSTRUCTIONAL SERVICES SPECIALIST proced ure are in ONLY) the results section. GLUCOSE BY METER Routine 08/16/2017 5:14 PM Resul ts for this INSTRUCTIONAL SERVICES SPECIALIST procedure are i n the results section. CBC WITH PLATELETS & STAT 08/16/2017 11:45 Res ults for this DIFFERENTIAL AM INSTRUCTIONAL SERVICES SPECIALIST procedure are i n the results section. URIC ACID STAT 08/16/2017 11:45 Results for this AM INSTRUCTIONAL SERVICES SPECIALIST procedure are i n the results section. AST STAT 08/16/2017 11:45 Results for this AM INSTRUCTIONAL SERVICES SPECIALIST procedure are i n the results section. ANTI TREPONEMA STAT 08/16/2017 11:45 Results f or this AM INSTRUCTIONAL SERVICES SPECIALIST procedure are i n the results section. ALT STAT 08/16/2017 11:45 Results for this AM INSTRUCTIONAL SERVICES SPECIALIST procedure are i n the results section. ABO/RH TYPE AND STAT 08/16/2017 11:45 Results for this SCREEN AM INSTRUCTIONAL SERVICES SPECIALIST procedure are i n the results section. BASIC METABOLIC PANEL STAT 08/16/2017 11:45 Re sults for this AM INSTRUCTIONAL SERVICES SPECIALIST procedure are i n the results section. [...] encounter Results (ABNORMAL) Hemoglobin (08/18/2017 7:05 AM INSTRUCTIONAL SERVICES SPECIALIST) P athologist Signature Hemoglobin 10.5 (L) 11.7 - 15.7 08/18/2017 [facility] g/dL 7:56 AM [facility] Specimen Anatomical Collection Method Collection Time Receive d Time (Source) Location / / Volume Laterality Blood specimen 08/18/2017 7:05 AM 018 7:06 (specimen) INSTRUCTIONAL SERVICES SPECIALIST AM INSTRUCTIONAL SERVICES SPECIALIST Lia Zacarias MD LAB - BLOOD ORDERABLES Performing Organization Address City/State/ZIP Code Phon e Number M [facility] [address] [place], [place] [address] [facility] [address] [place], [place] [address] [facility] [phone] (ABNORMAL) Glucose by meter (08/17/2017 6:35 AM INSTRUCTIONAL SERVICES SPECIALIST) P athologist Signature Glucose 114 (H) 70 - 99 08/17/2017 [facility] mg/dL 6:40 AM INSTRUCTIONAL SERVICES SPECIALIST TEST, GLUCOSE Specimen Anatomical Collection Method Collection Time Receive d Time (Source) Location / / Volume Laterality 08/17/2017 6:35 AM 8 6:40 INSTRUCTIONAL SERVICES SPECIALIST AM INSTRUCTIONAL SERVICES SPECIALIST Lia ALBARADO - BEKEVIN POCT Performing Organization Address City/[facility]/ZIP Code Phon e Number [facility] POINT OF CARE TEST, GLUCOSE POINT OF CARE TEST, GLUCOSE Glucose by meter (08/16/2017 10:35 PM INSTRUCTIONAL SERVICES SPECIALIST) P athologist Signature Glucose 70 70 - 99 08/17/2017 [facility] mg/dL 1:15 AM INSTRUCTIONAL SERVICES SPECIALIST TEST, GLUCOSE Specimen Anatomical Collection Method Collection Time Receive d Time (Source) Location / / Volume Laterality 08/16/2017 10:35 08/17/2017 1:15 PM INSTRUCTIONAL SERVICES SPECIALIST AM INSTRUCTIONAL SERVICES SPECIALIST Marnie Villar MD LAB - BEKEVIN POCT Performing Organization Address City/[facility]/ZIP Code Phon e Number [facility] POINT OF CARE TEST, GLUCOSE POINT OF CARE TEST, GLUCOSE (ABNORMAL) Glucose by meter (08/16/2017 8:37 PM INSTRUCTIONAL SERVICES SPECIALIST) P athologist Signature Glucose 62 (L) 70 - 99 08/16/2017 [facility] mg/dL 8:40 PM INSTRUCTIONAL SERVICES SPECIALIST TEST, GLUCOSE Specimen Anatomical Collection Method Collection Time Receive d Time (Source) Location / / Volume Laterality 08/16/2017 8:37 PM 8 8:40 INSTRUCTIONAL SERVICES SPECIALIST PM INSTRUCTIONAL SERVICES SPECIALIST Marnie Villar MD LAB - JAMAAL POCT Performing Organization Address City/[facility]/ZIP Code Phon e Number [facility] POINT OF CARE TEST, GLUCOSE POINT OF CARE TEST, GLUCOSE Glucose by meter (08/16/2017 6:28 PM INSTRUCTIONAL SERVICES SPECIALIST) P athologist Signature Glucose 71 70 - 99 08/16/2017 [facility] mg/dL 6:30 PM INSTRUCTIONAL SERVICES SPECIALIST TEST, GLUCOSE Specimen Anatomical Collection Method Collection Time Receive d Time (Source) Location / / Volume Laterality 08/16/2017 6:28 PM 8 6:30 INSTRUCTIONAL SERVICES SPECIALIST PM INSTRUCTIONAL SERVICES SPECIALIST Marnie Villar MD LAB - BEAKER POCT Performing Organization Address City/State/ZIP Code Phon e Number [facility] POINT OF CARE TEST, GLUCOSE POINT OF CARE TEST, GLUCOSE Creatinine urine calculation only (08/16/2017 5:30 PM INSTRUCTIONAL SERVICES SPECIALIST) P athologist Signature Creatinine 142 mg/dL 08/16/2017 [facility] Urine 6:36 PM [facility] Specimen Anatomical Collection Method Collection Time Receive d Time (Source) Location / / Volume Laterality 08/16/2017 5:30 PM 8 6:10 INSTRUCTIONAL SERVICES SPECIALIST PM INSTRUCTIONAL SERVICES SPECIALIST Marnie Villar MD LAB - URINE ORDERABLES Performing Organization Address City/State/ZIP Code Phon e Number M [facility] [address] [place] [address] [facility] [address] [place] [address], [place] [phone] (ABNORMAL) Protein random urine with Creat Ratio (08/16/2017 5:30 PM INSTRUCTIONAL SERVICES SPECIALIST) Analysis Performed At Patho logist Time Signature Protein Random 0.32 g/L 08/16/2017 [facility] Urine 6:36 PM [facility] Protein Total 0.22 (H) 0 - 0.2 08/16/2017 [facility] Urine g/gr g/g Cr 6:36 PM [facility] Specimen Anatomical Collection Method Collection Time Receive d Time (Source) Location / / Volume Laterality Urine specimen URINE SPECIMEN 08/16/2017 5:30 PM 08/16 6:10 (specimen) OBTAINED BY CLEAN INSTRUCTIONAL SERVICES SPECIALIST PM INSTRUCTIONAL SERVICES SPECIALIST CATCH PROCEDURE / Unknown Marnie Villar MD LAB - URINE ORDERABLES Performing Organization Address City/State/ZIP Code Phon e Number M [facility] [address] [place] [address] [facility] [address] [place] [address], [place] [phone] (ABNORMAL) Glucose by meter (08/16/2017 5:14 PM INSTRUCTIONAL SERVICES SPECIALIST) P athologist Signature Glucose 69 (L) 70 - 99 08/16/2017 [facility] mg/dL 5:21 PM INSTRUCTIONAL SERVICES SPECIALIST TEST, GLUCOSE Specimen Anatomical Collection Method Collection Time Receive d Time (Source) Location / / Volume Laterality 08/16/2017 5:14 PM 8 5:21 INSTRUCTIONAL SERVICES SPECIALIST PM INSTRUCTIONAL SERVICES SPECIALIST Marnie Villar MD LAB - BEAKER POCT Performing Organization Address City/State/ZIP Code Phon e Number [facility] POINT OF CARE TEST, GLUCOSE POINT OF CARE TEST, GLUCOSE Uric acid (08/16/2017 11:45 AM INSTRUCTIONAL SERVICES SPECIALIST) athologist Signature Uric Acid 5.8 2.6 - 6.0 08/16/2017 [facility] mg/dL 12:40 PM [facility] Specimen Anatomical Collection Method Collection Time Receive d Time (Source) Location / / Volume Laterality Blood specimen 08/16/2017 11:45 8 (specimen) AM INSTRUCTIONAL SERVICES SPECIALIST 12:18 PM INSTRUCTIONAL SERVICES SPECIALIST Marnie Villar MD LAB - BLOOD ORDERABLES Performing Organization Address City/[facility]/ZIP [facility] Phon e Number M [place] [address] [phone] [facility] [address] [phone] (ABNORMAL) Basic metabolic panel (08/16/2017 11:45 AM INSTRUCTIONAL SERVICES SPECIALIST) athologist Signature Sodium 138 133 - 144 08/16/2017 [facility] mmol/L 12:40 PM [facility] Potassium 4.1 3.4 - 5.3 08/16/2017 [facility] mmol/L 12:40 PM [facility] Chloride 106 94 - 109 08/16/2017 [facility] mmol/L 12:40 PM [facility] Carbon Dioxide 23 20 - 32 08/16/2017 [facility] mmol/L 12:40 PM [facility] Anion Gap 9 3 - 14 08/16/2017 [facility] mmol/L 12:40 PM [facility] Glucose 64 (L) 70 - 99 08/16/2017 [facility] mg/dL 12:40 PM [facility] Urea Nitrogen 12 7 - 30 08/16/2017 [facility] mg/dL 12:40 PM [facility] Creatinine 0.79 0.52 - 08/16/2017 [facility] 1.04 mg/dL 12:40 PM [facility] GFR Estimate 85 >60 08/16/2017 [facility] mL/min/1.7 12:[address] Comment: Non GFR Calc GFR Estimate If >90 >60 mL/min/1.7m2 08/16/2017 12:[address] [facility] Comment: GFR Calc Calcium 8.6 8.5 - 10.1 mg/dL 08/16/2017 12:40 PM [facility] Specimen Anatomical Collection Method Collection Time Receive d Time (Source) Location / / Volume Laterality Blood specimen 08/16/2017 11:45 8 (specimen) AM INSTRUCTIONAL SERVICES SPECIALIST 12:18 PM INSTRUCTIONAL SERVICES SPECIALIST Marnie Villar MD LAB - BLOOD ORDERABLES Performing Organization Address City/State/ZIP Code Phon e Neri [facility] [address] [place], [place] [address] [place] [address] [address] [place], [place] [address], [facility] [phone] ALT (08/16/2017 11:45 AM INSTRUCTIONAL SERVICES SPECIALIST) P athologist Signature ALT 13 0 - 50 U/L 08/16/2017 [facility] 12:40 PM [facility] Specimen Anatomical Collection Method Collection Time Receive d Time (Source) Location / / Volume Laterality Blood specimen 08/16/2017 11:45 8 (specimen) AM INSTRUCTIONAL SERVICES SPECIALIST 12:18 PM INSTRUCTIONAL SERVICES SPECIALIST Marnie Villar MD LAB - BLOOD ORDERABLES Performing Organization Address City/State/ZIP Code Phon e Neri [facility] [address] [place], [place] [address] [place] [address] [address], [facility] [phone] AST (08/16/2017 11:45 AM INSTRUCTIONAL SERVICES SPECIALIST) P athologist Signature AST 21 0 - 45 U/L 08/16/2017 [facility] 12:40 PM [facility] Specimen Anatomical Collection Method Collection Time Receive d Time (Source) Location / / Volume Laterality Blood specimen 08/16/2017 11:45 01/19/201 8 (specimen) AM INSTRUCTIONAL SERVICES SPECIALIST 12:18 PM INSTRUCTIONAL SERVICES SPECIALIST Marnie Villar MD LAB - BLOOD ORDERABLES Performing Organization Address City/[facility]/ZIP Code Phon malia Aguilar [facility] [address], [place] [address] [facility] [address] [place], [place] [address], [facility] [phone] ABO/Rh type and screen (08/16/2017 11:45 AM INSTRUCTIONAL SERVICES SPECIALIST) [facility] Method Time Signature ABO A 08/16/2017 [facility] 1:02 PM [facility] RH(D) Pos [facility] Antibody Neg 08/16/2017 [facility] Screen 1:02 PM [facility] Test Valid [facility] 08/16/2017 [facility] Only At [facility] 12:53 PM [facility] Specimen 08/19/2017 08/16/2017 [facility] Expires 12:53 PM [facility] Specimen Anatomical Collection Method Collection Time Receive d Time (Source) Location / / Volume Laterality Blood specimen 08/16/2017 11:45 8 (specimen) AM INSTRUCTIONAL SERVICES SPECIALIST 12:18 PM INSTRUCTIONAL SERVICES SPECIALIST Marnie Villar MD LAB - BLOOD BANK TEST ORDER Performing Organization Address City/[facility]/ZIP [facility] Phon malia Aguilar [facility] [address], [place] [address] [facility] [address], [place] [address] 7, [facility] [phone] CBC with platelets differential (08/16/2017 11:45 AM INSTRUCTIONAL SERVICES SPECIALIST) [facility] Method Time Signature WBC 8.7 4.0 - 08/16/2017 [facility] 11.0 12:24 PM [facility] 10e9/L [facility] RBC Count 5.07 3.8 - 5.2 08/16/2017 [facility] 10e12/L 12:24 PM [facility] Hemoglobin 13.7 11.7 - 08/16/2017 [facility] 15.7 g/dL 12:24 PM [facility] Hematocrit 43.3 35.0 - 08/16/2017 [facility] 47.0 % 12:24 PM [facility] MCV 85 78 - 100 08/16/2017 [facility] fl 12:24 PM [facility] MCH 27.0 26.5 - 08/16/2017 [facility] 33.0 pg 12:24 PM [facility] MCHC 31.6 31.5 - 08/16/2017 [facility] 36.5 g/dL 12:24 [facility] RDW 14.4 10.0 - 08/16/2017 [facility] 15.0 % 12:24 PM [facility] Platelet Count 272 150 - 450 08/16/2017 [facility] 10e9/L 12:24 [facility] Diff Method Automated 08/16/2017 [facility] Method 12:24 PM [facility] % Neutrophils 70.6 % 08/16/2017 [facility] 12:24 PM [facility] % Lymphocytes 19.1 % 08/16/2017 [facility] 12:24 PM [facility] % Monocytes 8.1 % 08/16/2017 [facility] 12:24 PM [facility] % Eosinophils 1.3 % 08/16/2017 [facility] 12:24 PM [facility] % Basophils 0.3 % 08/16/2017 [facility] 12:24 PM [facility] % Immature 0.6 % 08/16/2017 [facility] Granulocytes 12:24 PM [facility] Nucleated RBCs 0 0 /100 08/16/2017 [facility] 12:24 PM [facility] Absolute 6.1 1.6 - 8.3 08/16/2017 [facility] Neutrophil 10e9/L 12:24 PM [facility] Absolute 1.7 0.8 - 5.3 08/16/2017 [facility] Lymphocytes 10e9/L 12:24 PM [facility] Absolute 0.7 0.0 - 1.3 08/16/2017 [facility] Monocytes 10e9/L 12:24 PM [facility] Absolute 0.1 0.0 - 0.7 08/16/2017 [facility] Eosinophils 10e9/L 12:24 PM [facility] Absolute 0.0 0.0 - 0.2 08/16/2017 [facility] Basophils 10e9/L 12:24 [facility] Abs Immature 0.1 0 - 0.4 08/16/2017 [facility] Granulocytes 10e9/L 12:24 PM [facility] Absolute 0.0 08/16/2017 [facility] Nucleated RBC 12:24 PM [facility] Specimen Anatomical Collection Method Collection Time Receive d Time (Source) Location / / Volume Laterality Blood specimen 08/16/2017 11:45 8 (specimen) AM INSTRUCTIONAL SERVICES SPECIALIST 12:19 PM INSTRUCTIONAL SERVICES SPECIALIST Marnie Villar MD LAB - BLOOD ORDERABLES Performing Organization Address City/State/ZIP Code Phon e Number [place] [address], [place] [address] [facility] [address], [place] [address] [facility] [phone] Anti Treponema (08/16/2017 11:45 AM INSTRUCTIONAL SERVICES SPECIALIST) Analysis Performed At Patho logist Time Signature Treponema Negative NEG^Negati 08/17/2017 [facility] 10:36 AM [facility] Specimen Anatomical Collection Method Collection Time Receive d Time (Source) Location / / Volume Laterality Blood specimen 08/16/2017 11:45 8 (specimen) AM INSTRUCTIONAL SERVICES SPECIALIST 12:19 PM INSTRUCTIONAL SERVICES SPECIALIST Marnie Villar MD LAB - BLOOD ORDERABLES Performing Organization Address City/State/ZIP Code Phon e Number [address] [address] [facility] Group B strep PCR (07/17/2017) athologist Signature [...] - BLOOD ORDERABLES Chlamydia trachomatis PCR (01/25/2017) [facility] Method Time Signature Chlamydia Negative Trachomatis PCR Patient Reported LAB - MICRO GENERAL ORDERABL ES Anti Treponema (01/25/2017) [facility] gist Method Time Signature Treponema Non [...] (TYLENOL) tablet 650 Given 08/20/2017 8:42 AM INSTRUCTIONAL SERVICES SPECIALIST 650 mg mg 650 mg, Oral, EVERY [...] tablet 975 mg Given 08/19/2017 10:40 PM INSTRUCTIONAL SERVICES SPECIALIST 975 mg 975 mg, Oral, EVERY 8 HOURS, First dose on 08/17/17 at 0200, For 3 days, Do not use if patient has an active opioid/acetaminophen combined analgesic product ordered for pain. Maximum acetaminophen dose from all sources = 75 mg/kg/day not to exceed 4 grams/day., Post-procedure Given 08/19/2017 2:36 PM INSTRUCTIONAL SERVICES SPECIALIST 975 mg Given 08/19/2017 6:39 AM INSTRUCTIONAL SERVICES SPECIALIST 975 mg bisacodyl (DULCOLAX) Suppository 10 mg [...] (TUMS) chewable tablet 500 Given 5:55 PM INSTRUCTIONAL SERVICES SPECIALIST 500 mg mg 500 mg, Oral, DAILY PRN, heartburn, Starting on Sat08/16/17 at 1750 carboprost (HEMABATE) injection 250 mcg 250 mcg, Intramuscular, ONCE PRN, postpa rtum hemorrhage, Starting on 08/17/17 at 0153, For 1 dose, Start IF HEMORRHAGE, Post -procedure clindamycin (CLEOCIN) infusion 900 New Bag 08/18/2017 8:24 AM INSTRUCTIONAL SERVICES SPECIALIST 900 mg 50 mL/hr mg STAT, 900 mg, Intravenous, EVERY 8 HOURS, First dose on 08/17/17 at 0600, This medication is not recommended if patient is . Inform patient/minimize use. , Indications: Possible Chorioamnitis during Labor New Bag 08/17/2017 11:23 PM INSTRUCTIONAL SERVICES SPECIALIST 900 mg 50 mL/hr New Bag 08/17/2017 4:18 PM INSTRUCTIONAL SERVICES SPECIALIST 900 mg 50 mL/hr dextrose 5% in lactated ringers New Bag 08/17/2017 10:58 AM INSTRUCTIONAL SERVICES SPECIALIST 125 mL/hr infusion at 125 mL/hr, Intravenous, [...] (SUBLIMAZE) injection 50-100 Given 08/16/2017 2:44 PM INSTRUCTIONAL SERVICES SPECIALIST 100 mcg mcg 50-100 mcg, Intravenous, EVERY [...] mg in New Bag 08/18/2017 1:00 AM INSTRUCTIONAL SERVICES SPECIALIST 14 0 mg 50 mL/hr NaCl 0.9 % 50 mL intermittent infusion Routine, 140 mg (rounded from 132.4 mg = 2 mg/kg ? 66.2 kg Adjusted weight), Intravenous, EVERY 8 HOURS, First dose on 08/17/17 at 0700, Indications: possible chorioamnionitis New Bag 08/17/2017 2:33 PM INSTRUCTIONAL SERVICES SPECIALIST 140 mg New Bag 08/17/2017 6:31 AM INSTRUCTIONAL SERVICES SPECIALIST 140 mg glucagon injection 1 mg 1 [...] mg 0.3-0.5 mg, Intravenous, EVERY 30 MIN NC N, severe pain, Starting on 08/17/17 at 0153, Offer at least every 2 hours. Notify provider fo r new orders if agent ineffective. Hold while on 1ST PRESSMAN. For ordered doses up t o 4 [...] tablet 800 mg Given 08/20/2017 8:42 AM INSTRUCTIONAL SERVICES SPECIALIST 800 mg 800 mg, Oral, EVERY 6 HOURS PRN, cramping, Starting on 08/18/17 at 0400, Max dose: 3200 mg/day., Post-procedure Given 08/19/2017 10:40 PM INSTRUCTIONAL SERVICES SPECIALIST 800 mg Given 08/19/2017 4:34 PM INSTRUCTIONAL SERVICES SPECIALIST 800 mg ketorolac (TORADOL) injection 30 mg Given 08/18/2017 12:59 AM INSTRUCTIONAL SERVICES SPECIALIST 30 mg 30 mg, Intravenous, EVERY 6 HOURS, First dose on 08/17/17 at 0415, For 24 hours, Give first dose in PACU (alright to give with narcotic analgesic if ordered) X 24 hours For ordered doses up to 30 mg, give IV Push undiluted over 2 minutes., Post-procedure Given 08/17/2017 4:18 PM INSTRUCTIONAL SERVICES SPECIALIST 30 mg Given 08/17/2017 10:05 AM INSTRUCTIONAL SERVICES SPECIALIST 30 mg lactated ringers BOLUS 1,000 mL Intravenous, 1,000 mL, ONCE PRN, post pa rtum hemorrhage, Starting on 08/17/17 at 0153, For 1 dose, Rate: 500-1000 mL/hr. Start IF POSTP ARTUM HEMORRHAGE, Post-procedure lactated ringers infusion New Bag 08/16/2017 11:13 PM INSTRUCTIONAL SERVICES SPECIALIST 125 mL/hr at 125 mL/hr, Intravenous, CONTINUOUS, Starting on Sat08/16/17 at 1215, Until 08/17/17 at 0530 New Bag 08/16/2017 3:58 PM INSTRUCTIONAL SERVICES SPECIALIST 125 mL/hr New Bag 08/16/2017 3:00 PM INSTRUCTIONAL SERVICES SPECIALIST 999 mL/hr lanolin ointment Topical, EVERY 1 [...] capsule 20 mg Given 08/16/2017 9:43 PM INSTRUCTIONAL SERVICES SPECIALIST 20 mg 20 mg, Oral, 2 TIMES DAILY, First dose on Sat08/16/17 at 2115 ondansetron (ZOFRAN) injection 4 mg Given 08/17/2017 12:33 AM INSTRUCTIONAL SERVICES SPECIALIST 4 mg 4 mg, Intravenous, EVERY 6 HOURS PRN, nausea, vomiting, Administer over 2-5 Minutes, Starting on Sat08/16/17 at 1207, If nausea not resolved in 15 minutes, notify provider before proceeding to prochlorperazine (COMPAZINE) [if ordered]. Irritant. For ordered doses up to 4 mg, give IV Push undiluted over 2-5 minutes. Given 08/16/2017 11:44 PM INSTRUCTIONAL SERVICES SPECIALIST 4 mg ondansetron (ZOFRAN) injection 4 mg [...] analgesic side effe cts. Hold while on 1ST PRESSMAN or with regular IV opioid dosing. Maximum t otal is 80 mg in 24 hours., Post-procedure oxytocin (PITOCIN) 30 Rate/Dose 08/16/2017 11:23 0.5 michoacano-units/min 0.5 mL/hr units in 500 mL 0.9% Change PM INSTRUCTIONAL SERVICES SPECIALIST NaCl infusion 1-24 michoacano-units/min (1-24 mL/hr), Intravenous, [...] ripening medication. New Bag 08/16/2017 4:12 PM INSTRUCTIONAL SERVICES SPECIALIST 1 michoacano-units/min 1 mL/hr oxytocin (PITOCIN) 30 units in New Bag 08/17/2017 3:03 AM INSTRUCTIONAL SERVICES SPECIALIST 100 mL/hr 100 mL/hr 500 mL 0.9% [...] Post-procedure senna-docusate (SENOKOT-S;PERICOLACE) Given 08/19/2017 10:40 PM INSTRUCTIONAL SERVICES SPECIALIST 1 tablet 8.6-50 MG per tablet 1 tablet 1 tablet, Oral, 2 TIMES DAILY PRN, constipation, Starting on 08/17/17 at 0153, If no bowel movement in 24 hours, increase to 2 tablets PO. Hold for loose stools. Preferred agent for constipation related to opioids., Post-procedure Given 08/18/2017 8:24 AM INSTRUCTIONAL SERVICES SPECIALIST 1 tablet senna-docusate (SENOKOT-S;PERICOLACE) Given 08/20/2017 8:[address] 2 tablets 8.6-50 MG per tablet 2 tablet 2 tablet, Oral, 2 TIMES DAILY PRN, constipation, Starting on 08/17/17 at 0153, Hold for loose stools. Preferred agent for constipation related to opioids., Post-procedure Given 08/19/2017 8:40 AM INSTRUCTIONAL SERVICES SPECIALIST 2 tablets Given 08/18/2017 10:32 PM INSTRUCTIONAL SERVICES SPECIALIST 2 tablets simethicone (MYLICON) chewable tablet 80 mg 80 mg, Oral, 4 TIMES DAILY PRN, other, g as, Starting on 08/17/17 at 0153, Chew., Post-procedure sodium citrate-citric acid (BICITRA) solution Given 7:45 PM INSTRUCTIONAL SERVICES SPECIALIST 30 mLs 30 mL 30 mL, Oral, [...] Recently Administered Medications Times are shown in INSTRUCTIONAL SERVICES SPECIALIST. Scheduled Medication Order 08/18/2017 08/19/2017 08/20/2017 acetaminophen [...] First dose on 08/16/17 at 2115 Tdap (pojnlqo-qtikcrfldz-tepsl pertussis) (ADACEL) inj ection 0.5 mL 1354 [...] mg 0.3-0.5 mg, Intravenous, EVERY 30 MIN NC N, severe pain, Starting on 08/17/17 at 0153, Offer at least every 2 hours. Notify provider for new orders if agent ineffective. Hold while on 1ST PRESSMAN. For ordered doses up to 4 mg [...] or analgesic side effects. Hold while on 1ST PRESSMAN or with regular IV opioid dosing. Maximum [...] MG per tablet 1 tablet(Linked Group 4) 5522 (Given - Provider: Lucia Pratt RN)2231 (See [...]
Post-procedure documented in this encounter Care Teams Restorative Coordinator Relationship Specialty Start Date End Date Leela Ruano MD PCP - General [facility] Practice 08/06/17 [facility] [address] [facility] [place] [address] documented as of this encounter
--- OUTSIDE RECORDS SUMMARY | 2022-03-09 15:00 | XMS_ITS | Clinical Summary ---
:1985 Author Organization [facility] Address [address] [place] [address] Care Team Providers Name Role Phone Leela [...] for each transition of care or referral. Loladex Allergies Active Allergy Reactions Severity Noted Date Comments Penicillins Medium 06/02/2003 PN: Lip swellin g Medications No known medications Active Problems Problem Noted Date Tension headache 11/28/2003 Overview: LW Onset: [id number] ; Headache Tension [place] Comments Yes Resolved Problems Problem Noted Date Resolved Date Other acne 06/04/2003 10/17/2004 Overview: LW Onset: 49Por05 ; Acne Vulgaris Encounters Date Type Specialty Care Team Description 01/12/2022 Orders Only ProviderCrystal MD 12/19/2021 Telephone Endocrinology Emma Branham MD LAB RESUL TS 12/13/2021 Telephone Endocrinology Emma Branham MD LAB RESUL TS from Last 3 Months Immunizations Name Administration [...] 165.1 cm (5' 5) 09/12/2015 3:36 PM NURSE DISCHARGE Body Mass Index 23.7 09/12/2015 3:36 PM NURSE DISCHARGE Plan of Treatment Health Maintenance Due Date [...] that is no t available. Interface Provider DUMMY/OTHER/AR from Last 3 Months Insurance Payer Benefit Plan Subscriber ID Effective Dates Phone Address Type / Group ADAM MEDINA [id number] [employer] [phone] Gov ernment t 87 CLAIMS [address] [address] [place] [address] BCBS BCBS CCS BLUE [id number] 2021-[place] [address] [address] [place] [address] Care Teams Wood Milling Machine Tender Relationship Specialty Start Date End Date Leela Ruano MD PCP - General 10/31/[address] [place] [address]
--- OUTSIDE RECORDS SUMMARY | 2022-03-09 15:00 | XMS_ITS | Encounter Summary ---
:1985 Author Organization [place] Address [address] [facility] [place] [address] Care Team Providers Name Role Phone Leela Ruano MD Primary Care Provider Reason for Visit Auth/Cert Specialty Diagnoses / Procedures Referred By Contact Refer red To Contact greens keeper Diagnoses Rh Labor And Delivery Procedures LABOR AND DELIVERY [address], [place] [address] Phone: Fax: Referral ID Status Reason Start Date Expiration Date Visits Requ ested Visits Authorized [id number] 1 1 Encounter Details Date Type Department Care Team Description 08/17/[address] [facility] [place] [address] [place] [address] ANESTHESIA [id number] [place], [place] [address] (Wo rk) Anesthesia Record [...] 0119 by Catheter intact Taran Marie APRN TERRITORY SALES REPRESENTATIVE Peripheral IV 08/16/17; 1145; 18 G; 08/16/17 [...] at Date Recorded Female 08/03/2021 2:35 PM RESISTOR WINDER documented as of this encounter OR Notes [...] Winters MD August 17, 2017 1:33 AM STOR WINDER Anesthesia Preprocedure Evaluation - Jax Winters MD [...] alternatives discussed with: Patient and Spouse.. . STOR WINDER documented in this encounter Miscellaneous Notes Anesthesia [...] APRN CRNA August 17, 2017 1:30 AM STOR WINDER documented in this encounter Plan of Treatment Not on filedocumented as of this encounter Visit Diagnoses Not on filedocumented in this encounter Administered Medications Inactive Administered Medications - up to 3 most recent administrations Medication Order MAR Action Action Date Dose Rate Site azithromycin (ZITHROMAX) 500 mg New Bag 08/17/2017 12:36 AM RESISTOR WINDER 50 0 mg in NaCl 0.9 % 250 mL intermittent infusion EDIN, 500 mg, Intravenous, PRE-OP/PRE-PROCEDURE, Starting on 08/17/17 at 0031, For 1 dose, Indications: Perioperative Pharmacoprophylaxis, Pre-procedure ceFAZolin (ANCEF) 1 g vial to attach to NS 100 Given 0 08/17/2017 12:27 AM RESISTOR WINDER 2 g ml bag for ADULT or [...] dexamethasone (DECADRON) injection Given 08/17/2017 12:33 AM RESISTOR WINDER 4 mg PRN, Administer over 1 Minutes, Starting on 08/17/17 at 0033, Anesthesia Intra-op lactated ringers infusion New Bag 08/17/2017 12:26 AM RESISTOR WINDER at 125 mL/hr, Intravenous, CONTINUOUS, Pre-procedure, Starting on 08/17/17 at 0030, Until 08/17/17 at 0319 lidocaine 2%-EPINEPHrine 1:200,000 injec tion Given 08/17/2017 12:29 AM RESISTOR WINDER 15 mLs EPIDURAL, PRN, Starting on 08/17/17 at 0029, Anesthesia Intra-op methylergonovine (METHERGINE) injection 200 Given 07/30 12:57 AM RESISTOR WINDER 200 mcg mcg 200 mcg, Intramuscular, ONCE PRN, ONLY for uterine atony with significant bleeding POST-DELIVERY, Starting on Sat08/16/17 at 1207, For 1 dose, Notify provider IF uterine atony and clarify with provider medication preference. Do NOT give IF Blood Pressure greater than 140/90, preeclampsia, or chronic hypertension. midazolam (VERSED) injection Given 08/17/2017 12:45 AM RESISTOR WINDER 1 mg Administer over 2 Minutes, PRN, anxiety, Starting on 08/17/17 at 0045, Anesthesia Intra-op morphine (PF) (ASTRAMORPH /DURAMORPH) injection Given 08/17/2017 1:02 AM RESISTOR WINDER 4 mg 4 mg 4 mg, Intrathecal, ONCE, Administer over 4-5 Minutes, On 08/17/17 at 0100, For 1 dose, Epidural, not ITN For ordered doses up to 15 mg give IV Push undiluted over 4-5 minutes. ondansetron (ZOFRAN) injection 4 mg Given 08/17/2017 12:33 AM RESISTOR WINDER 4 mg 4 mg, Intravenous, EVERY 6 HOURS PRN, nausea, vomiting, Administer over 2-5 Minutes, Starting on 08/16/17 at 1207, If nausea not resolved in 15 minutes, notify provider before proceeding to prochlorperazine (COMPAZINE) [if ordered]. Irritant. For ordered doses up to 4 mg, give IV Push undiluted over 2-5 minutes. Given 08/16/2017 11:44 PM RESISTOR WINDER 4 mg oxytocin (PITOCIN) 30 units in 500 mL 0.9% Given 08/17/2017 1:21 AM RESISTOR WINDER 397 mLs NaCl infusion 100-340 mL/hr, Intravenous, [...] per nurse discretion. Given 08/17/2017 12:52 AM RESISTOR WINDER 3 mLs documented in this encounter Care Teams Machine Feeder Floorperson Relationship Specialty Start Date End Date Leela Ruano MD PCP - General Family Practice 08/06/17 [facility] [address] [address] [place] [address] documented as of this encounter
--- OUTSIDE RECORDS SUMMARY | 2022-03-09 15:00 | XMS_ITS | Clinical Summary ---
:1985 Author Organization [facility] Address [address] [place] [address] Care Team Providers Name Role Phone Leela [...] at Date Recorded Female 08/03/2021 2:35 PM CURRICULUM DEVELOPMENT MANAGER Last Filed Vital Signs Vital Sign Reading Time Taken Comments Blood Pressure 137/90 08/20/2017 8:34 AM CURRICULUM DEVELOPMENT MANAGER Pulse - - Temperature 36.5 ??C (97.7 ??F) 08/20/2017 8:34 AM CURRICULUM DEVELOPMENT MANAGER Respiratory Rate 18 08/20/2017 8:34 AM CURRICULUM DEVELOPMENT MANAGER Oxygen Saturation 96% 08/17/2017 8:20 AM CURRICULUM DEVELOPMENT MANAGER Inhaled Oxygen Concentration - - Weight 83.5 kg (184 lb) 08/16/2017 11:00 AM CURRICULUM DEVELOPMENT MANAGER Height 162.6 cm (5' 4) 08/16/2017 11:00 AM CURRICULUM DEVELOPMENT MANAGER Body Mass Index 31.58 08/16/2017 11:00 AM CURRICULUM DEVELOPMENT MANAGER Plan of Treatment Health Maintenance [...] comple te this topic Years) Care Teams Field Marketing Associate Relationship Specialty Start Date End Date Leela Ruano MD PCP - General Family Practice 08/06/17 [facility] [address] [place], [place] [address]
--- OUTSIDE RECORDS SUMMARY | 2022-03-09 15:01 | XMS_ITS | Encounter Summary ---
:1985 Author Organization [employer] Address [address] [place] [address] Care Team Providers Name Role Phone Unassigned, Provider Primary Care Provider Unavailable Encounter Details Date Type Department Care Team Description 04/22/2007 Hospital Encounter [facility] [address] Casa Reyes MD [address] [place], [place] [id number] Endoscopy Casa Reyes MD [address] [place], [place] [phone] [facility] [place], [place] [phone] Social History Tobacco Use Types Packs/Day Years [...] 2212 Note Time: 04/22/07 1335 Status: Signed Shade Maker: Casa Reyes MD (Physician) Patient Name: Cassidy [...] Return to primary care physician. CPT4 Code(s): 40681, Upper gastrointestinal endoscopy including esophagus, stomach, and either the duodenum and/or jejunum as appropriate; diagnostic, with or without collection of specimen(s) by brushing or washing (separate procedure) ICD9 Code(s): 536.8, Dyspepsia and other specified disorders of function of stomach The codes documented in this report are preliminary and upon bathhouse attendant review may be revised to meet current compliance requirements. Casa Reyes MD Signed Date: 04/22/2007 02:29:28 PM Number of Addenda: 0 This document has been electronically signed. Note generated on 04/22/2007 1:36:23 PM documented in this encounter Plan of Treatment Not on filedocumented as of this encounter Visit Diagnoses Not on filedocumented in this encounter Care Teams [place] Machine Operator Relationship Specialty Start Date End Date Unassigned, Provider PCP - General 12/02/01 10/30/[address] [place] [address] documented as of this encounter
--- OUTSIDE RECORDS SUMMARY | 2022-03-09 15:01 | XMS_ITS | Encounter Summary ---
:1985 Author Organization [employer] Address [address] [place] [address] Care Team Providers Name Role Phone Leela Ruano MD Primary Care Provider Encounter Details Date Type Department Care Team Description 01/06/2009 PN Conversion Only [facility] Leela Ruano, [address] [place] [address] [facility] [address] [place] [id number] (Wo rk) Social History Tobacco [...] Transmitted Disease Probe (01/06/2009 3:11 PM CDT) [facility] Method Time Signature Sexually SEE TEXT HP CONVERSION Transmitted Disease Probe Comment: Patient: CASSIDY KIRKLAND Sexually Trans Disease Probe ?Collected: ??[id number] ??[id number] Source: ENDOCERV ?Processed: ??[id number] ??[id number] Final Report ------ ?[id number] ??[id number] No Chlamydia trachomatis detected by amp lified DNA assay No Neisseria gonorrhoeae detected by amp lified DNA assay The Tripnary Amplified DNA assay is laila red by the FDA for non-medicolegal diagnostic testing in the adult population. Specimen (Source) Anatomical Collection Method Collection Time Re ceived Time Location / / Volume Laterality 01/06/2009 3:11 PM CDT Leela Ruano MD LAB_1 Performing Organization Address City/State/ZIP Code Phon e Number HP CONVERSION Pap Smear (01/06/2009 10:47 AM CDT) [facility] Method Time Signature PAP Smear SEE TEXT No normal HP CONVERSION Liquid Based range Comment: Patient: CASSIDY KIRKLAND ? CERVICAL CYTOLOGY REPORT Pathology # ??[id number] ?Date Obtained: ? Date Received: CYTOLOGIC IMPRESSION: [...] on filedocumented in this encounter Care Teams Manager Work Relationship Specialty Start Date End Date Leela Ruano MD PCP - General 10/31/10 [address] [address] [place] [address] documented as of this encounter
--- OUTSIDE RECORDS SUMMARY | 2022-03-09 15:01 | XMS_ITS | Encounter Summary ---
:1985 Author Organization [employer] Address [address] [place] [address] Care Team Providers Name Role Phone Leela Ruano MD Primary Care Provider Reason for Visit Reason Comments Referral [facility] TSH/ Encounter Details Date Type Department Care Team Description 11/15/2021 Telephone [facility] 3800 Nurse, [id number] End Referral Endocrinology [address] ([facility] [address] [address] [place] [address] Social History Tobacco Use Types Packs/Day [...] on filedocumented in this encounter Care Teams Traffic Lieutenant Relationship Specialty Start Date End Date Leela Ruano MD PCP - General 10/31/10 [address] [place] [address] documented as of this encounter
--- OUTSIDE RECORDS SUMMARY | 2022-03-09 15:01 | XMS_ITS | Encounter Summary ---
:1985 Author [facility] Address [address] [place] [address] Care Team Providers Name Role Phone Leela Lopez MD Primary Care Provider Reason for Visit Reason Comments Other Encounter Details Date Type Department Care Team Description 08/13/2008 Telephone [facility], Message Other [address] [place], [place] [phone] Social History Tobacco Use Types Packs/Day Years Used Date Smoking Tobacco: Never Assessed Sex Assigned at Date Recorded Not on file documented as of this encounter [facility], Message - 08/13/2008 9:09 AM CST Phone Note filed by [employer] at 11/16/10 7351 Author: [employer] Service: (none) Author Type: (none) Filed: 11/16/10 1428 Note Time: 08/13/08908 Status: Signed Mat Roller: [employer] Prescription Refill Please provide enough refills to last until patient's next visit. Comment:- Pharmacy Seq #:-[phone] [facility] Street or City:[facility] Clinician Name:Magui LOPEZ Drug Name/Strength:-[id number] Sig: [...] BARBER wrote: left message on voice mail CTOR VACCINE documented in this encounter Plan of Treatment Not on filedocumented as of this encounter Visit Diagnoses Not on filedocumented in this encounter Care Teams Customer Service Cashier Relationship Specialty Start Date End Date Leela Lopez MD PCP - General 10/31/10 [address] [address] [place] [address] documented as of this encounter
--- OUTSIDE RECORDS SUMMARY | 2022-03-09 15:01 | XMS_ITS | Encounter Summary ---
:1985 Author Organization [facility] Address [address] [place] [address] Care Team Providers Name Role Phone Leela Ruano MD Primary Care Provider Encounter Details Date Type Department Care Team Description 04/22/2007 PN Conversion Only CONV GASTROENTEROLOG Y Casa Reyes MD [address] [place] [phone] (Wo rk) Social History Tobacco Use Types Packs/Day Years Used Date Smoking Tobacco: Never Assessed Sex Assigned at Date Recorded Not on file documented as of this encounter Plan of Treatment Not on filedocumented as of this encounter Visit Diagnoses Not on filedocumented in this encounter Care Teams Burglar Alarm Assembler Relationship Specialty Start Date End Date Leela Ruano MD PCP - General 10/31/10 [address] [place] [address] [place] [address] documented as of this encounter
--- OUTSIDE RECORDS SUMMARY | 2022-03-09 15:01 | XMS_ITS | Encounter Summary ---
:1985 Author Organization [facility] Address [address], [place] [address] Care Team Providers Name Role Phone Leela Ruano MD Primary Care Provider Reason for Visit Reason Comments Annual Exam Encounter Details Date Type Department Care Team Description 09/12/2015 Office Visit [facility] Leela Ruano [facility] woman exam with routine gynecological exam (Primary Dx); Medicine Cervical cancer screening; [address] [address] [facility] Diabetes mellitus screening; [place] [address] [place], [place] Lipid screening; [phone] Screening for thyroid disorder Social History Tobacco Use Types Packs/Day Years Used Date Smoking Tobacco: Never Assessed Sex Assigned at Date Recorded Not on file documented as of this encounter Last Filed Vital Signs Vital Sign Reading Time Taken Comments Blood Pressure 120/80 09/12/2015 3:36 PM BATTERY TESTER FIELD Pulse 74 09/12/2015 3:36 PM BATTERY TESTER FIELD Temperature - - Respiratory Rate - - Oxygen Saturation - - Inhaled Oxygen Concentration - - Weight 62.6 kg (138 lb) 09/12/2015 3:36 PM BATTERY TESTER FIELD Height 165.1 cm (5' 5) 09/12/2015 3:36 PM BATTERY TESTER FIELD Body Mass Index 22.96 09/12/2015 3:36 PM BATTERY TESTER FIELD documented in this encounter Patient Instructions Patient InstructionsFay Segovia LPN - 09/12/2015 4:11 PM CST Please return for fasting lab work. ERY TESTER FIELD documented in this encounter Progress Notes Shannon Tan RN - 09/16/2015 2:59 PM BATTERY TESTER FIELD Quick Note: Letter sent. ERY TESTER FIELD Leela Ruano MD - 09/12/2015 7:00 PM CST Preventive Physical Exam: 09/12/2015 SUBJECTIVE: 30 y.o. female for a physical exam. 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 Allergies Allergen Reactions ??? Penicillins Lip swelling [...] was discharged ambulatory and in stable condition. ERY TESTER FIELD documented in this encounter Miscellaneous Notes Miscellaneous - 09/05/2016 9:41 PM CSTNotes Recorded by Shannon Tan RN on 09/16/2015 at 2:59 PMLetter sent. ERY TESTER FIELD Miscellaneous - 09/05/2016 9:41 PM CSTNotes Recorded by Shannon Tan RN on 09/16/2015 at 2:59 PMLetter sent. ERY TESTER FIELD documented in this encounter Plan of Treatment Not on filedocumented as of this encounter Procedures Procedure Name Priority Date/Time Associated Comments Diagnosis PAP TEST ORDER Routine 09/12/2015 4:11 PM Cervical cancer Resu lts for this BATTERY TESTER FIELD screening procedure are i n the results section. HPV WITH 16 18 Routine 09/12/2015 4:11 PM Results for this GENOTYPING, BATTERY TESTER FIELD procedure are i n CERVICAL/ENDOCERVICA the res ults L section. ANATOMICAL PATH Routine 09/12/2015 4:11 PM Result s for this LIQUID BASED BATTERY TESTER FIELD procedure are i n the results section. documented in this encounter Results Pap Smear (09/12/2015 4:11 PM BATTERY TESTER FIELD) Specimen (Source) Anatomical Collection Method Collection Time Re ceived Time Location / / Volume Laterality 09/12/2015 4:11 PM BATTERY TESTER FIELD Narrative HP CONVERSION - 09/15/2015 4:41 PM BATTERY TESTER FIELD FINAL GYNECOLOGICAL CYTOLOGY REPORT Pathology #: [id number] ?Date Obtained: 09/12/2015 ? Date Received: 09/13/2015 [...] false-negative report s may occur. Performed at [facility], [address] [place] [address] Transcriptions 09/05/2016 9:41 PM CSTNotes Recorded by Shannon Tan RN on 09/16/2015 at 2:59 PMLetter sent. Leela Ruano MD LAB_1 Performing Organization Address City/State/ZIP Code Phon e Number HP CONVERSION HPV with 16 18 Genotyping (09/12/2015 4:11 PM BATTERY TESTER FIELD) [facility] Method Time Signature HPV High Risk [...] and its pe rformance characteristics determined by [facility] [employer] [facility]. It has not been cleared or approved by [facility]. The laboratory is regulated under CLIA as qualified to perform high-complexity testing. This test is used for clinical purposes. It should not be regarded as investigational or fo r research. Specimen Anatomical Collection Method Collection Time Receive d Time (Source) Location / / Volume Laterality 09/12/2015 4:11 PM 6 4:11 BATTERY TESTER FIELD PM BATTERY TESTER FIELD Narrative HP CONVERSION - 09/15/2015 1:57 PM BATTERY TESTER FIELD Performed at [facility], [facility] [place] [address] CLIA number [id number] Transcriptions 09/05/2016 9:41 PM CSTNotes Recorded by Shannon Tan RN on 09/16/2015 at 2:59 PMLetter sent. Leela Ruano MD LAB_1 Performing Organization Address City/[facility]/ZIP Code Phon e Number HP CONVERSION Pap Test Order (09/12/2015 4:11 PM BATTERY TESTER FIELD) [facility] Method Time Signature Pap Smear Collected HP CONVERSION Monolayer tracking test Specimen Anatomical Collection Method Collection Time Receive d Time (Source) Location / / Volume Laterality 09/12/2015 4:11 PM 6 6:34 BATTERY TESTER FIELD AM BATTERY TESTER FIELD Leela Ruano MD LAB_1 Performing Organization Address City/[facility]/ZIP [facility] Phon e Number HP CONVERSION documented in this encounter Visit Diagnoses Diagnosis Well woman exam with routine gynecologic al exam - Primary Routine gynecological examination Cervical cancer screening Screening for malignant neoplasm of the cervix Diabetes mellitus screening Screening for diabetes mellitus Lipid screening Screening for lipoid disorders Screening for thyroid disorder documented in this encounter Care Teams Diamond Broker Relationship Specialty Start Date End Date Leela Ruano MD PCP - General 10/31/10 [address] [address] [place] [address] documented as of this encounter
--- OUTSIDE RECORDS SUMMARY | 2022-03-09 15:01 | XMS_ITS | Encounter Summary ---
:1985 Author Organization [facility] Address [address] [place] [address] Care Team Providers Name Role Phone Leela Ruano MD Primary Care Provider Encounter Details Date Type Department Care Team Description 06/01/2009 PN Conversion Only [place] [address] [address] [place] [address] [place] [address] Social History Tobacco Use Types Packs/Day Years Used Date Smoking Tobacco: Never Assessed Sex Assigned at Date Recorded Not on file documented as of this encounter Plan of Treatment Not on filedocumented as of this encounter Procedures Procedure Name Priority Date/Time Associated Diagnosis Comme nts STREP GROUP A Routine 06/01/2009 1:54 PM Results for this ANTIGEN TEST SHUTTLER CAR procedure are i n the results section. BETA STREP FOLLOWUP Routine 06/01/2009 1:54 PM Re sults for this SHUTTLER CAR procedure are i n the results section. documented in this encounter Results Strep Group A Antigen Test (06/01/2009 1:54 PM SHUTTLER CAR) Analysis Performed At Patho logist Time Signature Strep Group A Negative Negative HP CONVERSION Antigen Test Comment: Culture to follow. Specimen (Source) Anatomical Collection Method Collection Time Re ceived Time Location / / Volume Laterality 06/01/2009 1:54 PM SHUTTLER CAR Juan J Meyer MD LAB_1 Performing Organization Address City/State/ZIP Code Phon e Number HP CONVERSION Beta Strep Followup (06/01/2009 1:54 PM SHUTTLER CAR) P athologist Signature Strep Screen SEE TEXT HP CONVERSION Comment: Patient: CASSIDY KIRKLAND Rapid Strep Follow up Culture ? Collected: ??[id number] ??[id number] Source: Throat ?Processed: ??[id number] ??[id number] ? 1V Final Report ------ ?[id number] ??0822 No beta hemolytic Strep group A isolated . Specimen (Source) Anatomical Collection Method Collection Time Re ceived Time Location / / Volume Laterality 06/01/2009 1:54 PM SHUTTLER CAR Juan J Meyer MD LAB_1 Performing Organization Address City/State/ZIP Code Phon e Number HP CONVERSION documented in this encounter Visit Diagnoses Not on filedocumented in this encounter Care Teams Facilitator Relationship Specialty Start Date End Date Leela Ruano MD PCP - General 10/31/[address] [place], [place] [id number] documented as of this encounter
--- OUTSIDE RECORDS SUMMARY | 2022-03-09 15:01 | XMS_ITS | Encounter Summary ---
:1985 Author Organization [facility] Address [address] [address] Care Team Providers Name Role Phone Leela Ruano MD Primary Care Provider Encounter Details Date Type Department Care Team Description 10/20/2007 Office Visit [facility] [place] [address] [address] [place] [address] (Wo rk) Social History Tobacco [...] 0306 Note Time: 10/20/07 0001 Status: Signed Eeo Officer: Ramiro De Santiago MD (Physician) NAME: CASSIDY KIRKLAND MR#: [id number] ACCT: [id number] VISIT: [id number] DICTATING CLINICIAN: RAMIRO DE SANTIAGO MD JOB: [id number] LOC: 520 CLINIC PROGRESS NOTE DATE OF [...] follow up if symptoms persist or worsen. [id number] C: 10/21/07 06:18 DOCUMENT: [id number] documented in this encounter Plan of Treatment Not on filedocumented as of this encounter Visit Diagnoses Not on filedocumented in this encounter Care Teams Core Shaper Sides Relationship Specialty Start Date End Date Leela Ruano MD PCP - General 10/31/10 [address] [address] [place] [address] documented as of this encounter
--- OUTSIDE RECORDS SUMMARY | 2022-03-09 15:01 | XMS_ITS | Encounter Summary ---
:1985 Author Organization [employer] Address [address], [place] [address] Care Team Providers Name Role Phone Leela Ruano MD Primary Care Provider Encounter Details Date Type Department Care Team Description 08/01/2009 Office Visit [facility] Micaela Buckner PA-C [id number] [place] [phone] (Wo rk) Social History Tobacco Use Types Packs/Day Years Used Date Smoking Tobacco: Never Assessed Sex Assigned at Date Recorded Not on file documented as of this encounter Last Filed Vital Signs Vital Sign Reading Time Taken Comments Blood Pressure 127/82 08/01/2009 12:49 PM RECRUITING MANAGER Pulse 93 08/01/2009 12:49 PM RECRUITING MANAGER Temperature 36.9 ??C (98.4 ??F) 08/01/2009 12:49 PM RECRUITING MANAGER C: 3 6.9 C Respiratory Rate 16 08/01/2009 12:49 PM RECRUITING MANAGER Oxygen Saturation - - Inhaled Oxygen Concentration - - Weight - - Height - - Body Mass Index - - documented in this encounter Progress Notes Micaela Buckner PA-C - 08/01/2009 12:01 AM CST Progress Notes signed by Micaela Buckner PA-C at 08/01/09 1313 Author: Micaela Buckner PA-C Service: (none) Author Type: Physician [employer] Filed: 11/18/10 4513 Note Time: 08/01/09 0001 Status: Signed Cane Piler: Micaela Buckner PA-C (Resource) SUBJECTIVE: Cassidy is [...] in stable condition.All questions were answered. *SH~DNS~VirPharyngitis UITING MANAGER documented in this encounter Plan of Treatment Not on filedocumented as of this encounter Visit Diagnoses Not on filedocumented in this encounter Care Teams Plant Protection Guard Relationship Specialty Start Date End Date Leela Ruano MD PCP - General 10/31/10 [address] [place] [address] documented as of this encounter
--- OUTSIDE RECORDS SUMMARY | 2022-03-09 15:01 | XMS_ITS | Encounter Summary ---
:1985 Author Organization [facility] Address [address] [place] [address] Care Team Providers Name Role Phone Leela Ruano MD Primary Care Provider Encounter Details Date Type Department Care Team Description 08/01/2009 PN Conversion Only [place] CONVERSMicaela Jolley PA-C [address] [address] [place], [place] [address] (Wo rk) Social History Tobacco Use Types Packs/Day Years Used Date Smoking Tobacco: Never Assessed Sex Assigned at Date Recorded Not on file documented as of this encounter Plan of Treatment Not on filedocumented as of this encounter Procedures Procedure Name Priority Date/Time Associated Diagnosis Comme nts STREP GROUP A Routine 08/01/2009 2:33 PM Results for this ANTIGEN TEST CHIROPRACTOR ASSISTANT procedure are i n the results section. BETA STREP FOLLOWUP Routine 08/01/2009 2:33 PM Re sults for this CHIROPRACTOR ASSISTANT procedure are i n the results section. documented in this encounter Results Strep Group A Antigen Test (08/01/2009 2:33 PM CHIROPRACTOR ASSISTANT) Analysis Performed At Patho logist Time Signature Strep Group A Negative Negative HP CONVERSION Antigen Test Comment: Culture to follow. Specimen (Source) Anatomical Collection Method Collection Time Re ceived Time Location / / Volume Laterality 08/01/2009 2:33 PM CHIROPRACTOR ASSISTANT Micaela Buckner PA-C LAB_1 Performing Organization Address City/State/[facility] Phon e Number HP CONVERSION Beta Strep Followup (08/01/2009 2:33 PM CHIROPRACTOR ASSISTANT) P athologist Signature Strep Screen SEE TEXT HP CONVERSION Comment: Patient: CASSIDY KIRKLAND Rapid Strep Follow up Culture ? Collected: ??[id number] ??[id number] Source: Throat ?Processed: ??[id number] ??[id number] Final Report ------ ?[id number] ??[id number] No beta hemolytic Strep group A isolated . Specimen (Source) Anatomical Collection Method Collection Time Re ceived Time Location / / Volume Laterality 08/01/2009 2:33 PM CHIROPRACTOR ASSISTANT Micaela Buckner PA-C LAB_1 Performing Organization Address [facility] Phon e Number HP CONVERSION documented in this encounter Visit Diagnoses Not on filedocumented in this encounter Care Teams Chip Separator Relationship Specialty Start Date End Date Leela Ruano MD PCP - General 10/31/10 [address] [place] [phone] documented as of this encounter
--- OUTSIDE RECORDS SUMMARY | 2022-03-09 15:01 | XMS_ITS | Encounter Summary ---
:1985 Author Organization [employer] Address [address], [place] [address] Care Team Providers Name Role Phone Leela Ruano MD Primary Care Provider Encounter Details Date Type Department Care Team Description 05/29/2007 Office Visit [facility] [place] [address] [address] [place] [address] Social History Tobacco Use Types [...] signed by Chuck Erwin MD at 06/30/07 6554 Author: Chuck Erwin MD Service: (none) Author Type: Physician Filed: 11/17/10 2301 Note Time: 05/29/07 0001 Status: Signed Marine Engineering Technicians: Chuck Erwin MD (Physician) NAME: CASSIDY KIRKLAND MR#: [id number] ACCT: [id number] VISIT: [id number] DICTATING CLINICIAN: CHUCK ERWIN MD JOB: [id number] LOC: 520 CLINIC PROGRESS NOTE DATE OF VISIT: 05/29/2007 SUBJECTIVE: Patient apparently goes to [employer], and she needs a note for school. [...] right away if any recurrence of symptoms. [id number] C: 05/30/07 11:57 DOCUMENT: [id number] M CLERK documented in this encounter Plan of Treatment Not on filedocumented as of this encounter Visit Diagnoses Not on filedocumented in this encounter Care Teams Channel Lip Stiffener Insoles Relationship Specialty Start Date End Date Leela Ruano MD PCP - General 10/31/10 [address] [place] [address] documented as of this encounter
--- OUTSIDE RECORDS SUMMARY | 2022-03-09 15:01 | XMS_ITS | Encounter Summary ---
:1985 Author Organization [employer] Address [address] [place] [address] Care Team Providers Name Role Phone Leela Ruano MD Primary Care Provider Reason for Visit Reason Comments Orders Needed Encounter Details Date Type Department Care Team Description 12/06/2021 Telephone [facility] [address] Emma Branham MD Orders Needed Endocrinology [address] [place] [place] [address] [place], [place] [address] [phone] Social History Tobacco Use Types Packs/Day Years [...] 2:37 PM CDT Faxed lab orders to [facility]. [phone] Fax: documented in this encounter Plan of Treatment Not on filedocumented as of this encounter Visit Diagnoses Not on filedocumented in this encounter Care Teams Administrative Assistant Relationship Specialty Start Date End Date Leela Ruano MD PCP - General 10/31/10 [address] [place] [address] documented as of this encounter
--- OUTSIDE RECORDS SUMMARY | 2022-03-09 15:01 | XMS_ITS | Encounter Summary ---
:1985 Author Organization [facility] Address [address] [place] [address] Care Team Providers Name Role Phone Leela Ruano MD Primary Care Provider Encounter Details Date Type Department Care Team Description 02/12/2008 PN Conversion Only [place] [facility] N Joslyn Barreto [address] [facility] [place] [address] [facility] [address], [place] [address] Social History Tobacco Use [...] Routine(Micro If Pos) (02/12/2008 10:26 AM CDT) [facility] Method Time Signature Turbidity Cloudy (A) [...] Specific 1.025 1.005 - 25 HP CONVERSION Tatamy Specimen (Source) Anatomical Collection Method Collection Time Re ceived Time Location / / Volume Laterality 02/12/2008 10:26 AM CDT Joslyn Barreto PA-C LAB_1 Performing Organization Address City/[facility] Phon e Number HP CONVERSION (ABNORMAL) Urinalysis Microscopic (02/12/2008 10:26 AM CDT) [facility] gist Method Time Signature White Blood Packed (A) 0 - 3 HP CONVERSION Cells Urine Red Blood Packed (A) 0 - 2 HP CONVERSION Cells Urine Bacteria Urine Many (A) None HP CONVERSION Specimen (Source) Anatomical Collection Method Collection Time Re ceived Time Location / / Volume Laterality 02/12/2008 10:26 AM CDT Joslyn Barreto PA-C LAB_1 Performing Organization Address City/[facility] Phon e Number HP CONVERSION documented in this encounter Visit Diagnoses Not on filedocumented in this encounter Care Teams Barge Pilot Relationship Specialty Start Date End Date Leela Ruano MD PCP - General 10/31/10 [address] [place] [address] documented as of this encounter
--- OUTSIDE RECORDS SUMMARY | 2022-03-09 15:01 | XMS_ITS | Encounter Summary ---
:1985 Author Organization [facility] Address [address] [place] [address] Care Team Providers Name Role Phone Leela Ruano MD Primary Care Provider Reason for Visit Reason Comments Pharyngitis Encounter Details Date Type Department Care Team Description 01/04/2017 Hospital Encounter [facility] Erica Ruiz MD Sore throat; [address] [place] [address] [place] [address] [address]vd [phone] [place], [place] [address] (Wo rk) Social History Tobacco Use Types [...] 12:00 PM CDT NAME: CASSIDY MILLIGAN MR#: [id number] CSN: [id number] AUTHENTICATING CLINICIAN: Erica Rubi MD CONFIRM #: [id number] LOC: 520 URGENT CARE PROGRESS NOTE DATE [...] a cough. PAST MEDICAL HISTORY: Reviewed through [employer]. PAST SURGICAL HISTORY: Reviewed through [employer]. MEDICATIONS: Reviewed through [employer]. ALLERGIES: Penicillin. OBJECTIVE: VITALS: Temperature 98.6, pulse [...] with the plan. ROMEL:MAICOL C: CONFIRM #: [id number] documented in this encounter Plan of Treatment [...] Culture Throat (CSS) (01/04/2017 3:18 PM CDT) [facility] gist Method Time Signature Source Throat PN SOFT Site PN SOFT Strep Screen No Group A 01/06/2017 PN SOFT Streptococcus 6:54 AM CDT Isolated Specimen (Source) Anatomical Collection Method Collection Time Re ceived Time Location / / Volume Laterality 01/04/2017 3:18 PM CDT Narrative PN SOFT - 01/06/2017 6:54 AM CDT Performed at [address] [address], CLIA Number [id number] Erica Rubi MD LAB_1 Performing Organization Address City/[facility] Phon e Number PN SOFT [address] [place] [address] Rapid Strep Group A Waived (RSAW) (01/04/2017 3:02 PM CDT) athologist Signature Strep A Negative Negative PN SOFT Antigen Strep A Source THROA: PN SOFT Specimen Anatomical Collection Method Collection Time Receive d Time (Source) Location / / Volume Laterality 01/04/2017 3:02 PM 7 4:15 CDT PM CDT Narrative PN SOFT - 01/04/2017 4:20 PM CDT Performed at [facility], [address] [place] [address] CLIA number [id number] Jack KELLER LAB_1 Performing Organization Address City/[facility] Code Phon e Number PN SOFT [address] [place] [address] documented in this encounter Visit Diagnoses Diagnosis [...] . documented in this encounter Care Teams E D Tech Relationship Specialty Start Date End Date Leela Ruano MD PCP - General 10/31/10 [address] [place] [address] documented as of this encounter
--- OUTSIDE RECORDS SUMMARY | 2022-03-09 15:01 | XMS_ITS | Encounter Summary ---
:1985 Author Organization [facility] Address [address] [place] [address] Care Team Providers Name Role Phone Leela Ruano MD Primary Care Provider Reason for Visit Reason Comments Pharyngitis CONGESTION, NASAL Encounter Details Date Type Department Care Team Description 10/13/2015 Hospital Encounter [facility], Sore throat; Care Elías S DO Streptococcal pharyngitis [address] [address] [phone] Social History Tobacco Use Types Packs/Day Years [...] Filed: 10/18/151706 Note Time: 10/16/151922 Status: Signed Food Service Substitute: Elías Lange DO (Physician) NAME: CASSIDY MILLIGAN MR#: [id number] CSN: [id number] AUTHENTICATING CLINICIAN: Elías Lange DO CONFIRM #: [id number] LOC: 520 URGENT CARE PROGRESS NOTE DATE OF VISIT: 10/13/2015 : 1985 CHIEF COMPLAINT: This patient complains of a sore throat for the past 5-6 days with some sinus pain and pressure thatstarted last night. No fever or chills. ALLERGIES: Reviewed on [employer]. MEDICINES: Reviewed on [employer]. PAST MEDICAL HISTORY: Reviewed on [employer]. SOCIAL HISTORY: Reviewed on [employer]. IMMUNIZATIONS: Reviewed on [facility]. ALLERGIES: Penicillin with lip swelling. PHYSICAL [...] in stable condition. LSS:MEDQ C: CONFIRM #: [id number] documented in this encounter Miscellaneous Notes Medication [...] GROUP A WAIVED (10/13/2015 3:47 PM CDT) [facility] Method Time Signature Strep A Positive (A) Negative HP CONVERSION Antigen Strep A Throat: HP CONVERSION Source Specimen Anatomical Collection Method Collection Time Receive d Time (Source) Location / / Volume Laterality 10/13/2015 3:47 PM 6 7:58 CDT PM CDT Narrative HP CONVERSION - 10/13/2015 8:00 PM CDT Performed at [facility], [facility] [address] [id number] CLIA number [id number] Jack KELLER LAB_1 Performing Organization Address City/State/ZIP Code Phon e Number HP CONVERSION documented in this encounter Visit Diagnoses Diagnosis Sore throat Acute pharyngitis Streptococcal pharyngitis Streptococcal sore throat Triage Assessment Note - Shannon Lea, DINKEY ENGINE OPERATOR - 10/13/2015 3:46 PM CDT Pt. here for sore throat x 5-6 days, sinus pain and pressure started last night. NT HR MANAGER documented in this encounter Care Teams Insurance Adjustor Relationship Specialty Start Date End Date Leela Ruano MD PCP - General 10/31/10 [address] [address] [place] [address] documented as of this encounter
--- OUTSIDE RECORDS SUMMARY | 2022-03-09 15:01 | XMS_ITS | Encounter Summary ---
:1985 Author Organization [facility] Address [address] [address] Care Team Providers Name Role Phone Leela Ruano MD Primary Care Provider Encounter Details Date Type Department Care Team Description 12/19/2016 Lab Visit [facility] Amenorrhea [address] [place] [address] Social History Tobacco Use Types [...] - 12/19/2016 4:36 PM CDT Performed at [facility], [address] [facility], [place] [address] CLIA number [id number] Leela Ruano MD LAB_1 Performing Organization Address City/State/ZIP Code Phon e Number PN SOFT [address] [place] [address] documented in this encounter Visit Diagnoses Diagnosis Amenorrhea Absence of menstruation documented in this encounter Care Teams Interior Design Teacher Relationship Specialty Start Date End Date Leela Ruano MD PCP - General 10/31/10 [address] [address] [place] [address] documented as of this encounter
--- OUTSIDE RECORDS SUMMARY | 2022-03-09 15:01 | XMS_ITS | Encounter Summary ---
:1985 Author Organization [facility] Address [address] [place] [address] Care Team Providers Name Role Phone Leela Ruano MD Primary Care Provider Encounter Details Date Type Department Care Team Description 01/05/2009 PN Conversion Only [facility] [address] [address] [place] [address] Social History Tobacco Use Types Packs/Day Years Used Date Smoking Tobacco: Never Assessed Sex Assigned at Date Recorded Not on file documented as of this encounter Plan of Treatment Not on filedocumented as of this encounter Visit Diagnoses Not on filedocumented in this encounter Care Teams Pharmacy Retail Support Specialist Relationship Specialty Start Date End Date Leela Ruano MD PCP - General 10/31/[address] [place] [address] documented as of this encounter
--- OUTSIDE RECORDS SUMMARY | 2022-03-09 15:01 | XMS_ITS | Encounter Summary ---
:1985 Author Organization [facility] Address [address] [place] [address] Care Team Providers Name Role Phone Leela Ruano MD Primary Care Provider Reason for Visit Reason Comments AMENORRHEA Encounter Details Date Type Department Care Team Description 12/19/2016 Office Visit [facility] Leela Ruano, Amen orrhea (Primary Dx); [place] [address] [place] [address] [place] [address] [place], [place] [phone] (Wo rk) Social History Tobacco Use Types [...] Body Mass Index 23.7 09/12/2015 3:36 PM BANBURY OPERATOR documented in this encounter Patient Instructions Patient [...] 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 Allergies Allergen Reactions ??? Penicillins PN: Lip [...] will be 08/18/17. She would be contacting [facility] for her 1st OB visit. She has checkedwith her insurance regarding coverage with this group. She will continue the vitamins. Advised avoiding or yaet-[id number]-[id number] medications at this time. She will continue [...] - 12/19/2016 4:36 PM CDT Performed at [facility], [address] [place] [address] CLIA number [id number] Leela Ruano MD LAB_1 Performing Organization Address City/State/ZIP Code Phon e Number PN SOFT [address] [place] [address] documented in this encounter Visit Diagnoses Diagnosis Amenorrhea - Primary Absence of menstruation Early stage of Amenorrhea Absence of menstruation documented in this encounter Care Teams Monkey Trainer Relationship Specialty Start Date End Date Leela Ruano MD PCP - General [phone] [address] [place] [address] documented as of this encounter
--- OUTSIDE RECORDS SUMMARY | 2022-03-09 15:01 | XMS_ITS | Encounter Summary ---
:1985 Author Organization [employer] Address [address] [place] [address] Care Team Providers Name Role Phone Leela Ruano MD Primary Care Provider Reason for Visit Reason Comments LAB RESULTS Encounter Details Date Type Department Care Team Description 12/13/2021 Telephone [facility] [address] Emma Branham MD LAB RESULTS Endocrinology [address] [place] [address] [place], [place] [address] [phone] Social History Tobacco Use Types Packs/Day Years [...] 11:12 AM CDT Received lab results form [facility], placed in [facility] mailbox to review documented in this encounter Plan of Treatment Not on filedocumented as of this encounter Visit Diagnoses Not on filedocumented in this encounter Care Teams Sander Wooden Pencils Relationship Specialty Start Date End Date Leela Ruano MD PCP - General 10/31/10 [address] [address] [place] [address] documented as of this encounter
--- OUTSIDE RECORDS SUMMARY | 2022-03-09 15:01 | XMS_ITS | Encounter Summary ---
:1985 Author [facility] Address [address] [place] [address] Care Team Providers Name Role Phone Leela Ruano MD Primary Care Provider Reason for Visit Reason Comments Other Encounter Details Date Type Department Care Team Description 04/18/2007 Telephone [facility], Message Other [address] [place] [address] Social History Tobacco Use Types Packs/Day Years Used Date Smoking Tobacco: Never Assessed Sex Assigned at Date Recorded Not on file documented as of this encounter [facility], Message - 04/18/2007 11:09 AM CDT Phone Note filed by [employer] at 11/15/10 4249 Author: [employer] Service: (none) Author Type: (none) Filed: 11/15/10435 Note Time: 04/18/07 1109 Status: Signed Ripening Room Operator: [employer] Non -Symptom Message from Front Line Caller Name/Relationship:Cassidy Primary Shell Sieve Operator: Rocio Message: Please see previous note fax absence note to [facility]... their fax number is [phone] - the school said they didn't get it... call pt when done. Elementary [employer] Art Teacher: Cassidy Best call back number: [phone] Is it OK to leave a confidential message on this voicemail? yes *[id number] Created on 18Apr2007 11:09am by CARINA DELUCA On 18Apr2007 11:23am MARSHAL FLOWERS wrote: refaxed.called pt back and informed her that we refaxed it. she wants to come and merchandise pickup/receiving associate a copy as well. FEEDER documented in this encounter Plan of Treatment Not on filedocumented as of this encounter Visit Diagnoses Not on filedocumented in this encounter Care Teams Restaurant Assistant Manager Relationship Specialty Start Date End Date Leela Ruano MD PCP - General 10/31/10 [address] [address] [place] [address] documented as of this encounter
--- OUTSIDE RECORDS SUMMARY | 2022-03-09 15:01 | XMS_ITS | Encounter Summary ---
:1985 Author Organization [facility] Address [address] [place] [address] Care Team Providers Name Role Phone Leela Ruano MD Primary Care Provider Encounter Details Date Type Department Care Team Description 09/15/2015 Lab Visit [facility] Diabetes mellitus screening; [address] [facility] Lipid screening; [place] [address] Screening for thyroid disord er [phone] Social History Tobacco Use Types Packs/Day Years Used Date Smoking Tobacco: Never Assessed Sex Assigned at Date Recorded Not on file documented as of this encounter Plan of Treatment Not on filedocumented as of this encounter Procedures Procedure Name Priority Date/Time Associated Comments Diagnosis GLUCOSE Routine 09/15/2015 8:03 AM Diabetes mellitus Resu lts for this EXCEL EXPERT screening procedure are i n the results section. THYROID STIMULATING Routine 09/15/2015 8:03 AM Screening for R esults for this HORMONE EXCEL EXPERT thyroid disorder procedure a re in the results section. LIPID PANEL AND Routine 09/15/2015 8:03 AM Lipid screening Res ults for this DIRECT LDL(IF NEEDED) EXCEL EXPERT proced ure are in the results section. documented in this encounter Results THYROID STIMULATING HORMONE (09/15/2015 8:03 AM EXCEL EXPERT) P athologist Signature Thyroid 0.71 0.20 - HP CONVERSION Stimulating 4.50 Hormone uIU/mL Specimen Anatomical Collection Method Collection Time Receive d Time (Source) Location / / Volume Laterality 09/15/2015 8:03 AM 02/18/201 6 EXCEL EXPERT 12:27 PM EXCEL EXPERT Narrative HP CONVERSION - 09/15/2015 1:51 PM EXCEL EXPERT Performed at [address] [address] CLIA number [id number] Leela Ruano MD LAB_1 Performing Organization Address City/[facility]/ZIP Code Phon e Number HP CONVERSION Lipid Panel and Direct LDL(If Needed) (09/15/2015 8:03 AM EXCEL EXPERT) [facility] gist Method Time Signature Cholesterol 138 [...] Volume Laterality 09/15/2015 8:03 AM 6 8:03 EXCEL EXPERT AM EXCEL EXPERT Narrative HP CONVERSION - 09/15/2015 8:44 AM EXCEL EXPERT Performed at [facility], [address] [place] [address] CLIA number [id number] Leela Ruano MD LAB_1 Performing Organization Address City/[facility] Phon e Number HP CONVERSION GLUCOSE (09/15/2015 8:03 AM EXCEL EXPERT) athologist Signature Lab Glucose 100 60 - 100 HP CONVERSION mg/dL Specimen Anatomical Collection Method Collection Time Receive d Time (Source) Location / / Volume Laterality 09/15/2015 8:03 AM 6 8:03 EXCEL EXPERT AM EXCEL EXPERT Narrative HP CONVERSION - 09/15/2015 8:44 AM EXCEL EXPERT Performed at [facility], [address] [place] [address] CLIA number [id number] Leela Ruano MD LAB_1 Performing Organization Address City/[facility] Phon e Number HP CONVERSION documented in this encounter Visit Diagnoses Diagnosis Diabetes mellitus screening Screening for diabetes mellitus Lipid screening Screening for lipoid disorders Screening for thyroid disorder documented in this encounter Care Teams Video And Sound Recorder Relationship Specialty Start Date End Date Leela Ruano MD PCP - General 10/31/10 [address] [address] [place] [address] documented as of this encounter
--- OUTSIDE RECORDS SUMMARY | 2022-03-09 15:01 | XMS_ITS | Encounter Summary ---
:1985 Author Organization [facility] Address [address] [place] [address] Care Team Providers Name Role Phone Leela Ruano MD Primary Care Provider Encounter Details Date Type Department Care Team Description 08/22/2007 PN Conversion Only [facility] Sandie Frankel, [address] [facility] [place] [address] Social History Tobacco Use Types Packs/Day Years Used Date Smoking Tobacco: Never Assessed Sex Assigned at Date Recorded Not on file documented as of this encounter Plan of Treatment Not on filedocumented as of this encounter Procedures Procedure Name Priority Date/Time Associated Diagnosis Comme nts STREP GROUP A Routine 08/22/2007 4:56 PM Results for this ANTIGEN TEST REAL ESTATE ATTORNEY procedure are i n the results section. BETA STREP FOLLOWUP Routine 08/22/2007 4:56 PM Re sults for this REAL ESTATE ATTORNEY procedure are i n the results section. documented in this encounter Results Strep Group A Antigen Test (08/22/2007 4:56 PM REAL ESTATE ATTORNEY) Analysis Performed At Patho logist Time Signature Strep Group A Negative Negative HP CONVERSION Antigen Test Comment: Culture to follow. Specimen (Source) Anatomical Collection Method Collection Time Re ceived Time Location / / Volume Laterality 08/22/2007 4:56 PM REAL ESTATE ATTORNEY Sandie Carrillo MD LAB_1 Performing Organization Address City/State/ZIP Code Phon e Number HP CONVERSION Beta Strep Followup (08/22/2007 4:56 PM REAL ESTATE ATTORNEY) P athologist Signature Strep Screen SEE TEXT HP CONVERSION Comment: Patient: CASSIDY KIRKLAND Rapid Strep Follow up Culture ? Collected: ?1655 Source: Throat ?Processed: ?170 ? 1V Final Report ------ ?0943 No beta hemolytic Strep group A isolated . Specimen (Source) Anatomical Collection Method Collection Time Re ceived Time Location / / Volume Laterality 08/22/2007 4:56 PM REAL ESTATE ATTORNEY Sandie Carrillo MD LAB_1 Performing Organization Address City/State/ZIP Code Phon e Number HP CONVERSION documented in this encounter Visit Diagnoses Not on filedocumented in this encounter Care Teams Director Of Student Affairs Relationship Specialty Start Date End Date Leela Ruano MD PCP - General 10/31/10 [address] [place] [address] [address] documented as of this encounter
--- OUTSIDE RECORDS SUMMARY | 2022-03-09 15:01 | XMS_ITS | Encounter Summary ---
:1985 Author Organization [facility] Address [address] [place] [address] Care Team Providers Name Role Phone Leela Ruano MD Primary Care Provider Encounter Details Date Type Department Care Team Description 11/28/[address] [facility] Leela Ruano , Medicine [address] [address] [address] [place] [address] [place] [address] [phone] (Wo rk) Social History Tobacco Use Types Packs/Day Years Used Date Smoking Tobacco: Never Assessed Sex Assigned at Date Recorded Not on file documented as of this encounter Plan of Treatment Not on filedocumented as of this encounter Visit Diagnoses Not on filedocumented in this encounter Care Teams Journeyman Electrician Pv Installer Relationship Specialty Start Date End Date Leela Ruano MD PCP - General 10/31/10 [address] [place] [address] [place] [address] documented as of this encounter
--- OUTSIDE RECORDS SUMMARY | 2022-03-09 15:01 | XMS_ITS | Encounter Summary ---
:[address] [facility] Address [address] [place] [address] Care Team Providers Name Role Phone Leela Ruano MD Primary Care Provider Encounter Details Date Type Department Care Team Description 09/04/2007 Office Visit [facility] [place] [address] [address] [place] [address] [place] [address] [phone] (Wo rk) Social History Tobacco Use Types Packs/Day Years Used Date Smoking Tobacco: Never Assessed Sex Assigned at Date Recorded Not on file documented as of this encounter Progress Notes Leela Ruano MD - 09/04/2007 12:01 AM CST H&P signed by ARIANNA Pabon at 09/09/07 1907 Author: ARIANNA Pabon Service: (none) Author Type: Physician Filed: 11/18/10 0106 Note Time: 09/04/07 0001 Status: Signed Size Mixer: ARIANNA Pabon (Physician) NAME: CASSIDY KIRKLAND MR#: [id number] ACCT: [id number] VISIT: [id number] DICTATING CLINICIAN: ARIANNA PABON JOB: [id number] LOC: 502 CLINIC PHYSICAL DATE OF VISIT: [...] was done. Will also check a STD [place]. ASSESSMENT: 1. Physical exam within normal limits. [...] the Adacel vaccine today. PLAN: See Assessment. GLB:[id number] C: 09/07/07 12:47 DOCUMENT: [id number] ALT STILL OPERATOR documented in this encounter Plan of Treatment Not on filedocumented as of this encounter Visit Diagnoses Not on filedocumented in this encounter Care Teams Internal Grinder Relationship Specialty Start Date End Date Leela Ruano MD PCP - General 10/31/10 [address] [place] [place] [address] documented as of this encounter
--- OUTSIDE RECORDS SUMMARY | 2022-03-09 15:01 | XMS_ITS | Encounter Summary ---
:1985 Author Organization [facility] Address [address] [place] [address] Care Team Providers Name Role Phone Leela Ruano MD Primary Care Provider Reason for Visit Reason Onset Date Comments Fax 01/25/2017 last PAP Encounter Details Date Type Department Care Team Description 01/25/2017 Telephone [facility] Leela Gomes MD Fax (last PAP) [address] [place] [place] [address] [place] [address] [phone] (Wo rk) Social History Tobacco Use Types [...] 01/25/2017 8:59 AM CDT Results faxed to [phone] Fay Gerber, RN - 01/25/2017 8:43 AM CDT Reason for Call: FAX to [facility] for [facility]KR[facility] Next Steps: Route to [employer] Volleyball Coach (DA) pool. Additional Information: Marcie from [employer] is faxing over a VIKRAM to have the patients most recent PAP results faxed to them. Patient is there for an OB appointment. Their fax # isincluded. Last PAP: 09/12/15. Contact# Marcie- [employer] [place] (Other) [phone] documented in this encounter Plan of Treatment Not on filedocumented as of this encounter Visit Diagnoses Not on filedocumented in this encounter Care Teams Manager Bar Relationship Specialty Start Date End Date Leela Ruano MD PCP - General 10/31/10 [address] [place] [address] documented as of this encounter
--- OUTSIDE RECORDS SUMMARY | 2022-03-09 15:01 | XMS_ITS | Encounter Summary ---
:1985 Author Organization [employer] Address [address] [place] [address] Care Team Providers Name Role Phone Leela Ruano MD Primary Care Provider Encounter Details Date Type Department Care Team Description 02/12/2008 Office Visit [facility] Joslyn Parra, [address] [address] [facility] [place] [address] [facility] [phone] [place], [place] [address] Social History Tobacco Use [...] 0552 Note Time: 02/12/08 0001 Status: Signed Pulpit Operator: Joslyn Parra PA-C (Resource) NAME: CASSIDY KIRKLAND MR#: [id number] ACCT: [id number] VISIT: [id number] DICTATING CLINICIAN: JOSLYN PARRA PA-C CONFIRM #: [id number] LOC: 520 CLINIC PROGRESS NOTE DATE OF [...] immediately reseen; otherwise, follow up as needed. [id number] C: 02/12/08 11:12 CONFIRM #: [id number] documented in this encounter Plan of Treatment Not on filedocumented as of this encounter Visit Diagnoses Not on filedocumented in this encounter Care Teams Sanitizer Relationship Specialty Start Date End Date Leela Ruano MD PCP - General 10/31/10 [address] [address] [place] [address] documented as of this encounter
--- OUTSIDE RECORDS SUMMARY | 2022-03-09 15:01 | XMS_ITS | Encounter Summary ---
:1985 Author Organization [facility] Address [address] [place] [address] Care Team Providers Name Role Phone Leela Ruano MD Primary Care Provider Encounter Details Date Type Department Care Team Description 09/04/2007 PN Conversion Only [facility] Leela Ruano, [address] [place] [address] [facility] [place] [address] (Wo rk) Social History Tobacco Use Types Packs/Day Years Used Date Smoking Tobacco: Never Assessed Sex Assigned at Date Recorded Not on file documented as of this encounter Plan of Treatment Not on filedocumented as of this encounter Procedures Procedure Name Priority Date/Time Associated Comments Diagnosis SEXUALLY TRANSMITTED Routine 09/04/2007 4:31 PM R esults for this DISEASE PROBE QUALITY ASSURANCE NURSE procedure are in the results section. THYROID STIMULATING Routine 09/04/2007 4:29 PM Re sults for this HORMONE QUALITY ASSURANCE NURSE procedure are i n the results section. HEMOGLOBIN, BLOOD Routine 09/04/2007 4:29 PM Resu lts for this QUALITY ASSURANCE NURSE procedure are i n the results section. ANATOMICAL PATH Routine 09/04/2007 8:43 AM Result s for this LIQUID BASED QUALITY ASSURANCE NURSE procedure are i n the results section. documented in this encounter Results Sexually Transmitted Disease Probe (09/04/2007 4:31 PM QUALITY ASSURANCE NURSE) [facility] Method Time Signature Sexually SEE TEXT HP CONVERSION Transmitted Disease Probe Comment: Patient: CASSIDY KIRKLAND Sexually Trans Disease Probe ?Collected: ??[id number] ??[id number] Source: ENDOCERV ?Processed: ??[id number] ??[id number] ? 1V Final Report ------ ?[id number] ??[id number] No Chlamydia trachomatis detected by amp lified DNA assay No Neisseria gonorrhoeae detected by amp lified DNA assay The Probetec Amplified DNA assay is laila red by the FDA for non-medicolegal diagnostic testing in the adult population. Specimen (Source) Anatomical Collection Method Collection Time Re ceived Time Location / / Volume Laterality 09/04/2007 4:31 PM QUALITY ASSURANCE NURSE Leela Ruano MD LAB_1 Performing Organization Address City/[facility] Code Phon e Number HP CONVERSION Thyroid Stimulating Hormone (09/04/2007 4:29 PM QUALITY ASSURANCE NURSE) athologist Signature Thyroid 0.46 0.20 - HP CONVERSION Stimulating 4.50 Hormone uIU/mL Specimen (Source) Anatomical Collection Method Collection Time Re ceived Time Location / / Volume Laterality 09/04/2007 4:29 PM QUALITY ASSURANCE NURSE Leela Ruano MD LAB_1 Performing Organization Address [facility]/ZIP Code Phon e Number HP CONVERSION Hemoglobin, Blood (09/04/2007 4:29 PM QUALITY ASSURANCE NURSE) P athologist Signature Hemoglobin 15.1 11.8 - 15.5 HP CONVERSION gm/dL Specimen (Source) Anatomical Collection Method Collection Time Re ceived Time Location / / Volume Laterality 09/04/2007 4:29 PM QUALITY ASSURANCE NURSE Leela Ruano MD LAB_1 Performing Organization Address City/State/ZIP Code Phon e Number HP CONVERSION Pap Smear (09/04/2007 8:43 AM QUALITY ASSURANCE NURSE) Patholo gist Method Time Signature PAP Smear SEE TEXT No normal HP CONVERSION Liquid Based range Comment: Patient: CASSIDY KIRKLAND ? CERVICAL CYTOLOGY REPORT Pathology # ??[id number] ?Date Obtained: ? Date Received: CYTOLOGIC IMPRESSION: Negative for intraepithelial lesion or m alignancy. Verified 09/08/07 by: ? (electronic signature) ? AFSHIN TIONAL DATA LMP: CLINICAL HIST LIQUID BASED PAP CERVICAL SPECIMEN ADEQUACY: ?? Satisfactory. ENDOCERVICAL CELLS: ??Absent. Specimen (Source) Anatomical Collection Method Collection Time Re ceived Time Location / / Volume Laterality 09/04/2007 8:43 AM QUALITY ASSURANCE NURSE Leela Ruano MD LAB_1 Performing Organization Address City/State/ZIP Code Phon e Number HP CONVERSION documented in this encounter Visit Diagnoses Not on filedocumented in this encounter Care Teams Tetryl Blender Operator Relationship Specialty Start Date End Date Leela Ruano MD PCP - General 10/31/10 [address] [place] [address] documented as of this encounter
--- OUTSIDE RECORDS SUMMARY | 2022-03-09 15:01 | XMS_ITS | Encounter Summary ---
:1985 Author Organization [facility] Address [address] [place] [address] Care Team Providers Name Role Phone Leela Ruano MD Primary Care Provider Encounter Details Date Type Department Care Team Description 08/23/2009 Nursing Visit [facility] [place] Kiel Rodrí[place] [address] [place] [address] Social History Tobacco Use Types Packs/Day Years Used Date Smoking Tobacco: Never Assessed Sex Assigned at Date Recorded Not on file documented as of this encounter Plan of Treatment Not on filedocumented as of this encounter Visit Diagnoses Not on filedocumented in this encounter Care Teams Machine Operator Slitter Technician Relationship Specialty Start Date End Date Leela Ruano MD PCP - General 10/31/10 [address] [facility] [place] [id number] documented as of this encounter
--- OUTSIDE RECORDS SUMMARY | 2022-03-09 15:01 | XMS_ITS | Encounter Summary ---
:1985 Author Organization [facility] Address [address] [place] [address] Care Team Providers Name Role Phone Leela uRano MD Primary Care Provider Encounter Details Date Type Department Care Team Description 12/06/2021 Telemedicine [facility] [address] Emma Branham MD Low TSH level Endocrinology [address] (Primary Dx) [address] [place] [address] [id number] [phone] Social History Tobacco Use Types Packs/Day Years [...] Branham MD - 12/06/2021 1:00 PM CDT [facility] Department of Endocrinology, Diabetes and Metabolism Clinic [...] gain what's expected for .No diarrhea. More director instructional material the last couple of weeks. No compressive [...] 30 minutes including, but not limited to, pxb-dgdr-io-face time spent reviewing records, counseling, and coordination of care. Emma Branham MD Food And Beverage Order Clerk [facility] documented in this encounter Plan of Treatment [...] study documented in this encounter Care Teams Visual Merchandise Manager Relationship Specialty Start Date End Date Leela Ruano MD PCP - General 10/31/10 [address] [place] [address] documented as of this encounter
--- OUTSIDE RECORDS SUMMARY | 2022-03-09 15:01 | XMS_ITS | Encounter Summary ---
:1985 Author Organization [facility] Address [address] [place] [address] Care Team Providers Name Role Phone Leela Ruano MD Primary Care Provider Encounter Details Date Type Department Care Team Description 10/14/2007 Office Visit [facility] [place] [id number] [place] [address] [id number] Social History Tobacco Use Types Packs/Day Years [...] Awad MD at 10/27/07 1024 Author: Elayne Awad MD Service: (none) Author Type: Physician Filed: 11/18/10 0202 Note Time: 10/14/07 0001 Status: Signed Automotive Sales Executive: Elayne Awad MD (Physician) NAME: CASSIDY KIRKLAND MR#: [id number] ACCT: [id number] VISIT: [id number] DICTATING CLINICIAN: ELAYNE AWAD MD JOB: [id number] LOC: 520 CLINIC PROGRESS NOTE DATE OF [...] prescription if symptoms are not improving centrally. CAM:[id number] C: 10/14/07 20:48 DOCUMENT: [id number] documented in this encounter Plan of Treatment Not on filedocumented as of this encounter Visit Diagnoses Not on filedocumented in this encounter Care Teams Alterations Manager Relationship Specialty Start Date End Date Leela Ruano MD PCP - General 10/31/10 [address] [place] [address] documented as of this encounter
--- OUTSIDE RECORDS SUMMARY | 2022-03-09 15:01 | XMS_ITS | Encounter Summary ---
:1985 Author Organization [facility] Address [address] [place] [address] Care Team Providers Name Role Phone Leela Ruano MD Primary Care Provider Encounter Details Date Type Department Care Team Description 09/04/2007 PN Conversion Only [facility] [place] [address] [facility] [address] [place] [address] [place], [place] [phone] (Wo rk) Social History Tobacco Use Types Packs/Day Years Used Date Smoking Tobacco: Never Assessed Sex Assigned at Date Recorded Not on file documented as of this encounter Last Filed Vital Signs Vital Sign Reading Time Taken Comments Blood Pressure 118/74 09/04/2007 3:28 PM FREIGHT INSPECTOR Pulse 84 09/04/2007 3:28 PM FREIGHT INSPECTOR Temperature - - Respiratory Rate - - Oxygen Saturation - - Inhaled Oxygen Concentration - - Weight 55.8 kg (122 lb 15.9 oz) 09/04/2007 3:28 PM C: 5 5.8kg FREIGHT INSPECTOR Height 165.1 cm (5' 5) 09/04/2007 3:28 PM C: 165.1cm FREIGHT INSPECTOR Body Mass Index 20.47 09/04/2007 3:28 PM FREIGHT INSPECTOR documented in this encounter Plan of Treatment Not on filedocumented as of this encounter Procedures Procedure Name Priority Date/Time Associated Diagnosis Comme nts ECG 12 LEAD CLINIC Routine 09/04/2007 4:29 PM Res ults for this FREIGHT INSPECTOR procedure are i n the results section. documented in this encounter Results ECG 12 lead clinic (09/04/2007 4:29 PM FREIGHT INSPECTOR) Specimen (Source) Anatomical Collection Method Collection Time Re ceived Time Location / / Volume Laterality 09/04/2007 4:29 PM FREIGHT INSPECTOR Narrative HP CONVERSION - 09/04/2007 4:29 PM FREIGHT INSPECTOR Sinus rhythm with short VT Otherwise normal ECG No previous ECGs available Imr Conversion PN ECG ORDERABLES Performing Organization Address City/State/ZIP Code Phon e Number HP CONVERSION documented in this encounter Visit Diagnoses Not on filedocumented in this encounter Care Teams Turf Manager Relationship Specialty Start Date End Date Leela Ruano MD PCP - General 10/31/10 [address] [place] [address] documented as of this encounter
--- OUTSIDE RECORDS SUMMARY | 2022-03-09 15:01 | XMS_ITS | Encounter Summary ---
:1985 Author [facility] Address [address] [place] [address] Care Team Providers Name Role Phone Neva Lopez MD Primary Care Provider Reason for Visit Reason Comments Other Encounter Details Date Type Department Care Team Description 09/03/2007 Telephone [facility] [place] [address] [place] [address] Social History Tobacco Use Types Packs/Day Years Used Date Smoking Tobacco: Never Assessed Sex Assigned at Date Recorded Not on file documented as of this encounter Progress [facility], Message - 09/03/2007 11:07 AM CST Phone Note filed by [employer] at 11/15/10 9309 Author: [employer] Service: (none) Author Type: (none) Filed: 11/15/10 4988 Note Time: 09/03/07 1107 Status: Signed Quahogger: [employer] Non -Symptom Message from Front Line Caller Name/Relationship: natalya--mom Primary Home Care Chaplain: Dr Lopez Message: Pt needs a note faxed to her school for her appt tomorrow asking that she be excused for her appt. attn kimi avila fax # [phone]. school needs note by 2pm today. Rn Mobile: Natalya Best call back number: [phone] Is it OK to leave a confidential message on this voicemail? yes *[email or web address] Created on 03Sep2007 11:07am by JULIUS RUANO On 03Sep2007 12:34pm NEVA LOPEZ wrote: Note done. Please fax. Acknowledged by NEVA LOPEZ on 12:34pm On 03Sep2007 2:17pm MARY GRACE CARRERA wrote: faxed Acknowledged by MARY GRACE CARRERA on 2:17pm AL SERVICE LIAISON documented in this encounter Plan of Treatment Not on filedocumented as of this encounter Visit Diagnoses Not on filedocumented in this encounter Care Teams Roll Forger Relationship Specialty Start Date End Date Neva Lopez MD PCP - General 10/31/10 [address] [place] [address] documented as of this encounter
--- OUTSIDE RECORDS SUMMARY | 2022-03-09 15:01 | XMS_ITS | Encounter Summary ---
:1985 Author Organization [facility] Address [address], [place] [address] Care Team Providers Name Role Phone Leela Ruano MD Primary Care Provider Encounter Details Date Type Department Care Team Description 11/20/2009 Office Visit [facility] [place] [address] [address] [place] [address] Social History Tobacco Use Types [...] signed by Robert Wild MD at 11/22/09 4366 Author: Robert Wild MD Service: (none) Author Type: Physician Filed: 11/18/10 2154 Note Time: 11/20/09 0001 Status: Signed Community Service Officer Coordinator: Robert Wild MD (Physician) NAME: CASSIDY KIRKLAND MR#: [id number] ACCT: [id number] VISIT: [id number] DICTATING CLINICIAN: Robert Wild MD CONFIRM #: [id number] LOC: 520 CLINIC PROGRESS NOTE DATE OF [...] 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 ADR/ALLERGIES: NOTED TO PENICILLIN. PAST MEDICAL HISTORY: [...] of the wrist was provided as well. [id number] C: 11/21/09 16:01 CONFIRM #: [id number] documented in this encounter Plan of Treatment Not on filedocumented as of this encounter Visit Diagnoses Not on filedocumented in this encounter Care Teams Service Supervisor Relationship Specialty Start Date End Date Leela Ruano MD PCP - General 10/31/10 [address] [place] [address] documented as of this encounter
--- OUTSIDE RECORDS SUMMARY | 2022-03-09 15:01 | XMS_ITS | Encounter Summary ---
:1985 Author Organization [facility] Address [address] [address] Care Team Providers Name Role Phone Leela Ruano MD Primary Care Provider Encounter Details Date Type Department Care Team Description 01/06/2009 Office Visit [facility] [place] [address] [address] [place] [address] [place] [address] [phone] (Wo rk) Social History Tobacco Use Types [...] Service: (none) Author Type: Physician Filed: 11/18/10 6286 Note Time: 01/06/09 0001 Status: Signed Transplant Case Manager: ARIANNA Love (Resource) SUBJECTIVE: 23 year old, who comes in today for a physical. She needs to get her control pill refilled. No particular concerns. Does have some questions about the Mirena IUD.. Past Medical History: Intermittent anxiety. Tension headaches. Past Surgical History: None MEDICATIONS: Trivora 28. ADVERSE DRUG REACTIONS: Penicillin. FILTER CLEANER History-, zero, para zero. ROS: Stable weight, regular bowel movements, regular withdrawal bleed. No vaginal discharge. Has not had much headaches recently. Sleep pattern is good..Energy levels are good. The rest of the complete review of systems negative. Family History: Parents are in good health, as well as a younger brother. 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 Has had the same boyfriend for the [...] the Mirena IUD. She will schedule with FILTER CLEANER if she is interested in having this done. *SH~DNS~FEMALEPHYS documented in this encounter Plan of Treatment Not on filedocumented as of this encounter Visit Diagnoses Not on filedocumented in this encounter Care Teams Systems Test Technician Relationship Specialty Start Date End Date Leela Ruano MD PCP - General 10/31/10 [address] [place] [address] documented as of this encounter
--- OUTSIDE RECORDS SUMMARY | 2022-03-09 15:01 | XMS_ITS | Encounter Summary ---
:1985 Author Organization [facility] Address [address] [place] [address] Care Team Providers Name Role Phone Leela Ruano MD Primary Care Provider Encounter Details Date Type Department Care Team Description 11/20/2009 PN Conversion Only [facility] [address] [address] [place] [address] Social History Tobacco Use Types Packs/Day Years Used Date Smoking Tobacco: Never Assessed Sex Assigned at Date Recorded Not on file documented as of this encounter Plan of Treatment Not on filedocumented as of this encounter Visit Diagnoses Not on filedocumented in this encounter Care Teams Certified Nutritionist Relationship Specialty Start Date End Date Leela Ruano MD PCP - General 10/31/[address] [place] [address] documented as of this encounter
--- OUTSIDE RECORDS SUMMARY | 2022-03-09 15:01 | XMS_ITS | Encounter Summary ---
:1985 Author Organization [facility] Address [address] [place] [address] Care Team Providers Name Role Phone Leela Ruano MD Primary Care Provider Encounter Details Date Type Department Care Team Description 08/22/2007 Office Visit [facility] [place] [address] [place] [address] Social History Tobacco Use Types Packs/Day Years Used Date Smoking Tobacco: Never Assessed Sex Assigned at Date Recorded Not on file documented as of this encounter Last Filed Vital Signs Vital Sign Reading Time Taken Comments Blood Pressure 126/76 08/22/2007 1:10 PM CLINICAL COURIER Pulse 96 08/22/2007 1:10 PM CLINICAL COURIER Temperature 36.7 ??C (98.1 ??F) 08/22/2007 1:10 C: 36.7 C Si multaneous PM CLINICAL COURIER filing. User may not have seen previo us data. Respiratory Rate 16 08/22/2007 1:10 PM CLINICAL COURIER Oxygen Saturation - - Inhaled Oxygen - - Concentration Weight - - Height - - Body Mass Index - - documented in this encounter Progress Notes Sandie Reagan MD - 08/22/2007 12:01 AM CST Progress Notes signed by Sandie Reagan MD at 09/22/07 0515 Author: Sandie Reagan MD Service: (none) Author Type: Physician Filed: 11/18/10 0047 Note Time: 08/22/07 0001 Status: Signed Clinical Services Assistant: Sandie Reagan MD (Physician) NAME: CASSIDY KIRKLAND MR#: [id number] ACCT: [id number] VISIT: [id number] DICTATING CLINICIAN: SANDIE REAGAN MD JOB: [id number] LOC: 520 CLINIC PROGRESS NOTE DATE OF [...] MEDICAL HISTORY: She is a smoker. MEDICATIONS: Htqt-jaz-fayibhv medications and . ADR/ALLERGIES: PENICILLIN. OBJECTIVE: VS: [...] be rechecked if worsening or no improvement. [id number] C: 08/23/07 16:04 DOCUMENT: [id number] ICAL COURIER documented in this encounter Plan of Treatment Not on filedocumented as of this encounter Visit Diagnoses Not on filedocumented in this encounter Care Teams E Commerce Specialist Relationship Specialty Start Date End Date Leela Ruano MD PCP - General 10/31/10 [address] [place] [address] documented as of this encounter
--- OUTSIDE RECORDS SUMMARY | 2022-03-09 15:01 | XMS_ITS | Encounter Summary ---
:1985 Author Organization [facility] Address [address] [place] [address] Care Team Providers Name Role Phone Leela Ruano MD Primary Care Provider Reason for Visit Reason Comments Other Encounter Details Date Type Department Care Team Description 04/16/2007 Telephone [facility] [place]it [place], [place] Other [address] [place] [address] Social History Tobacco Use Types Packs/Day Years Used Date Smoking Tobacco: Never Assessed Sex Assigned at Date Recorded Not on file documented as of this encounter [facility], Message - 04/16/2007 12:27 PM CDT Phone Note filed by [employer] at 11/15/10425 Author: [employer] Service: (none) Author Type: (none) Filed: 11/15/10425 Note Time: 04/16/07 1227 Status: Signed Construction Code Administrator: siX[employer] Form Tracking Caller Name/Relationship: Cassidy Primary Bus Greaser: Gary Type of form (i.e. school,camp)? note for 5 day leave Please fax for Brianna Kam @ [facility] [employer]. Date needed: 04/16 Mail/Pickup/ Contact: Cassidy Keith call back number: [phone] cell Is it ok to leave a confidential message on this voicemail? yes Have you signed a consent form for release of this information? *ECODE~[email or web address] Created on 16Apr2007 12:27pm by PARKER SCHWAB On 16Apr2007 12:29pm JOHN GALLARDO wrote: Pt called and requested she be called when fax is sent. She can be reached at [phone] On 16Apr2007 1:28pm MIGUEL MUÑIZ wrote: Can [...] and she has an app[facility]. at [facility] scheduled. Fax # info above. On 16Apr2007 6:39pm MIGUEL MUÑIZ wrote: Please fax the note to above number. Thanks. Acknowledged by MIGUEL MUÑIZ on 6:39pm On 17Apr2007 8:33am GURJIT ODEN wrote: Letter faxed and message left on pts. voice mail. Acknowledged by GURJIT ODEN on 8:33am UT VENDOR documented in this encounter Plan of Treatment Not on filedocumented as of this encounter Visit Diagnoses Not on filedocumented in this encounter Care Teams Concrete Mixing Plant Superintendent Relationship Specialty Start Date End Date Leela Ruano MD PCP - General 10/31/10 [address] [place] [address] documented as of this encounter
--- OUTSIDE RECORDS SUMMARY | 2022-03-09 15:01 | XMS_ITS | Encounter Summary ---
:1985 Author Organization [facility] Address [address] [address] Care Team Providers Name Role Phone Leela Ruano MD Primary Care Provider Encounter Details Date Type Department Care Team Description 06/01/2009 Office Visit [facility] [place] [address] [address] [place] [address] [place] [address] [phone] Social History Tobacco Use Types Packs/Day Years Used Date Smoking Tobacco: Never Assessed Sex Assigned at Date Recorded Not on file documented as of this encounter Last Filed Vital Signs Vital Sign Reading Time Taken Comments Blood Pressure 121/84 06/01/2009 11:01 AM MANAGEMENT TRAINEE PROGRAM STORES Pulse 86 06/01/2009 11:01 AM MANAGEMENT TRAINEE PROGRAM STORES Temperature 36.9 ??C (98.4 ??F) 06/01/2009 11:01 C: 36.9 C Simultaneous AM MANAGEMENT TRAINEE PROGRAM STORES filing. User may not have seen previo us data. Respiratory Rate 16 06/01/2009 11:01 AM MANAGEMENT TRAINEE PROGRAM STORES Oxygen Saturation - - Inhaled Oxygen - - Concentration Weight - - Height - - Body Mass Index - - documented in this encounter Progress Notes Juan J Meyer MD - 06/01/2009 12:01 AM CST Progress Notes signed by Juan J Meyer MD at 06/12/09 4655 Author: Juan J Meyer MD Service: (none) Author Type: Physician Filed: 11/18/10 175 Note Time: 06/01/09 0001 Status: Signed Engineering And Development Director: Juan J Meyer MD (Physician) NAME: CASSIDY KIRKLAND MR#: [id number] ACCT: [id number] VISIT: [id number] DICTATING CLINICIAN: Juan J Meyer MD CONFIRM #: [id number] LOC: 520 CLINIC PROGRESS NOTE DATE OF VISIT: 06/01/2009 SUBJECTIVE: 23-year-old complains of sore throat for over 7 days. Complaining of headache and strep exposure a week ago. Review of health habits indicates she is a tobacco user. 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 OBJECTIVE: ASSESSMENT: Pharyngitis and sinusitis. PLAN: Antibiotic [...] rash. Rapid strep testing, though, is negative. [id number] C: 06/01/09 18:15 CONFIRM #: [id number] GEMENT TRAINEE PROGRAM STORES Juan J Meyer MD - 06/01/2009 12:01 AM CST Progress Notes signed by Juan J Meyer MD at 06/12/09 1346 Author: Juan J Meyer MD Service: (none) Author Type: Physician Filed: 11/18/10 175 Note Time: 06/01/09 0001 Status: Signed Engineering And Development Director: Juan J Meyer MD (Physician) NAME: CASSIDY KIRKLAND MR#: [id number] ACCT: [id number] VISIT: [id number] DICTATING CLINICIAN: Juan J Meyer MD CONFIRM #: [id number] LOC: 520 CLINIC PROGRESS NOTE DATE OF VISIT: 06/01/2009 SUBJECTIVE: 23-year-old complains of sore throat for over 7 days. Complaining of headache and strep exposure a week ago. Review of health habits indicates she is a tobacco user. 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 OBJECTIVE: VS: BP: 120/84. T: 98. P: [...] sinus pain after 1 week of illness. [id number] C: 06/02/09 04:07 CONFIRM #: [id number] GEMENT TRAINEE PROGRAM STORES documented in this encounter Plan of Treatment Not on filedocumented as of this encounter Visit Diagnoses Not on filedocumented in this encounter Care Teams Lead Presser Relationship Specialty Start Date End Date Leela Ruano MD PCP - General 10/31/10 [address] [facility] [place] [address] documented as of this encounter
--- OUTSIDE RECORDS SUMMARY | 2022-03-09 15:01 | XMS_ITS | Encounter Summary ---
:1985 Author Organization [facility] Address [address], [place] [address] Care Team Providers Name Role Phone Leela Ruano MD Primary Care Provider Reason for Visit Reason Onset Date Comments Sore Throat 01/05/2017 Encounter Details Date Type Department Care Team Description 01/05/2017 Telephone [facility] Leela Gomes MD Sore Throat [address] [address] [place] [address] [place] [address] [phone] (Wo rk) Social History Tobacco Use Types [...] on filedocumented in this encounter Care Teams Life Coach Relationship Specialty Start Date End Date Leela Ruano MD PCP - General 10/31/10 [address] [address] [place] [address] documented as of this encounter
--- OUTSIDE RECORDS SUMMARY | 2022-03-09 15:01 | XMS_ITS | Encounter Summary ---
:1985 Author Organization [employer] Address [address] [place] [address] Care Team Providers Name Role Phone Leela Ruano MD Primary Care Provider Encounter Details Date Type Department Care Team Description 07/17/2007 Office Visit [facility] [place] [address] [address] [place] [address] [phone] Social History Tobacco Use Types Packs/Day Years Used Date Smoking Tobacco: Never Assessed Sex Assigned at Date Recorded Not on file documented as of this encounter Last Filed Vital Signs Vital Sign Reading Time Taken Comments Blood Pressure 128/71 07/17/2007 11:30 AM BRAKE REPAIR SUPERVISOR Pulse 76 07/17/2007 11:30 AM BRAKE REPAIR SUPERVISOR Temperature 36.7 ??C (98.1 ??F) 07/17/2007 11:30 AM ORAL C: 36.7 C BRAKE REPAIR SUPERVISOR Respiratory Rate 2 07/17/2007 11:30 AM BRAKE REPAIR SUPERVISOR Oxygen Saturation - - Inhaled Oxygen Concentration - - Weight - - Height - - Body Mass Index - - documented in this encounter Progress Notes Lina Morales MD - 07/17/2007 12:01 AM CST Progress Notes signed by Lina Morales MD at 07/19/07 0937 Author: Lina Morales MD Service: (none) Author Type: Physician Filed: 11/18/10 0002 Note Time: 07/17/07 0001 Status: Signed Community Dietitian: Lina Morales MD (Physician) NAME: CASSIDY KIRKLAND MR#: [id number] ACCT: [id number] VISIT: [id number] DICTATING CLINICIAN: LINA MORALES MD JOB: [id number] LOC: 520 CLINIC PROGRESS NOTE DATE OF [...] nausea, vomiting, diarrhea or urinary symptoms. No EMS INSTRUCTOR symptoms. She did have an extensive workup [...] bedtime as a trial. She works at [employer] and one of the main reasons she came in was a work for school. She was given a note for school for today and tomorrow which was also faxed to her work place. PAMELA:[id number] C: 07/17/07 15:23 DOCUMENT: [id number] E REPAIR SUPERVISOR documented in this encounter Plan of Treatment Not on filedocumented as of this encounter Visit Diagnoses Not on filedocumented in this encounter Care Teams Manager Of Hospital Relationship Specialty Start Date End Date Leela Ruano MD PCP - General 10/31/10 [address] [place] [address] documented as of this encounter
--- OUTSIDE RECORDS SUMMARY | 2022-03-09 15:02 | XMS_ITS | Encounter Summary ---
:1985 Author Organization [facility] Address [address] [place] [address] Care Team Providers Name Role Phone Leela Ruano MD Primary Care Provider Encounter Details Date Type Department Care Team Description 01/10/2006 PN Conversion Only [facility] CONVERSIO N Leela Ruano, [address] [facility] [place] [address] [facility] [place] [address] (Wo rk) Social History Tobacco Use Types Packs/Day Years Used Date Smoking Tobacco: Never Assessed Sex Assigned at Date Recorded Not on file documented as of this encounter Plan of Treatment Not on filedocumented as of this encounter Visit Diagnoses Not on filedocumented in this encounter Care Teams Service Now Developer Relationship Specialty Start Date End Date Leela Ruano MD PCP - General 10/31/10 [address] [place] [address] documented as of this encounter
--- OUTSIDE RECORDS SUMMARY | 2022-03-09 15:02 | XMS_ITS | Encounter Summary ---
:1985 Author Organization [facility] Address [address] [place] [address] Care Team Providers Name Role Phone Leela Ruano MD Primary Care Provider Encounter Details Date Type Department Care Team Description 03/29/2005 PN Conversion Only [place] [address] [address] [place] [address] Social History Tobacco Use Types Packs/Day Years Used Date Smoking Tobacco: Never Assessed Sex Assigned at Date Recorded Not on file documented as of this encounter Plan of Treatment Not on filedocumented as of this encounter Visit Diagnoses Not on filedocumented in this encounter Care Teams Skin Care Technician Relationship Specialty Start Date End Date Leela Ruano MD PCP - General 10/31/[address] [place] [id number] documented as of this encounter
--- OUTSIDE RECORDS SUMMARY | 2022-03-09 15:02 | XMS_ITS | Encounter Summary ---
:1985 Author Organization [facility] Address [address] [address] Care Team Providers Name Role Phone Leela Ruano MD Primary Care Provider Encounter Details Date Type Department Care Team Description 01/10/2006 Office Visit [facility] [place] [address] [address] [place] [address] [place] [address] [phone] (Wo rk) Social History Tobacco Use Types [...] 1258 Note Time: 01/10/06 0001 Status: Signed Multicultural Internship: ARIANNA Pabon (Physician) NAME: CASSIDY KIRKLAND MR: [id number] ACCT: [id number] VISIT: [id number] DICTATING CLINICIAN: ARIANNA PABON JOB: [id number] CLINIC PHYSICAL DATE OF VISIT: 01/10/2006 SUBJECTIVE: [...] several months. Patient is a student at [employer]. 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 GLB:[id number] C: 01/15/06 05:57 DOCUMENT: [id number] documented in this encounter Plan of Treatment Not on filedocumented as of this encounter Visit Diagnoses Not on filedocumented in this encounter Care Teams Social Service Director Relationship Specialty Start Date End Date Leela Ruano MD PCP - General 10/31/10 [address] [address] [place] [address] documented as of this encounter
--- OUTSIDE RECORDS SUMMARY | 2022-03-09 15:02 | XMS_ITS | Encounter Summary ---
:1985 Author Organization [facility] Address [address] [address] Care Team Providers Name Role Phone Leela Ruano MD Primary Care Provider Encounter Details Date Type Department Care Team Description 04/14/2007 Office Visit [facility] Lis Clements, [address] [facility] [place] [address] [facility] [phone] [place], [place] [address] (Wo rk) Social History [...] 2202 Note Time: 04/14/07 0001 Status: Signed Foot Orthopedist: Lis Ro MD (Physician) NAME: CASSIDY KIRKLAND MR#: [id number] ACCT: [id number] VISIT: [id number] DICTATING CLINICIAN: Lis Ro MD JOB: [id number] LOC: 502 CLINIC PROGRESS NOTE DATE OF [...] next month or so. PLAN: See assessment. [facility]:[id number] C: 04/15/07 09:19 DOCUMENT: [id number] documented in this encounter Plan of Treatment Not on filedocumented as of this encounter Visit Diagnoses Not on filedocumented in this encounter Care Teams Technician Terminal And Repeater Relationship Specialty Start Date End Date Leela Ruano MD PCP - General 10/31/10 [address] [place] [address] documented as of this encounter
--- OUTSIDE RECORDS SUMMARY | 2022-03-09 15:02 | XMS_ITS | Encounter Summary ---
:1985 Author Organization [facility] Address [address] [place] [address] Care Team Providers Name Role Phone Neva Lopez MD Primary Care Provider Reason for Visit Reason Comments Other Encounter Details Date Type Department Care Team Description 03/13/2004 Telephone [facility], Message Other [address] [place] [address] Social History Tobacco Use Types Packs/Day Years Used Date Smoking Tobacco: Never Assessed Sex Assigned at Date Recorded Not on file documented as of this encounter Progress Notes Aki Arita - 03/13/2004 10:13 AM CDT Phone Note filed by Aki Arita RN at 11/13/10 5545 Author: Aki Arita RN Service: (none) Author Type: Registered Nurse Filed: 11/13/10 2872 Note Time: 03/13/04 1013 Status: Signed Lithographers Printer: Aki Arita RN (Registered Nurse) Mom and patient calling. Pt. has been on Triphasil 28 for about 6 months. Starting the middle of last month she has been bleeding every 2 weeks. Is asking if she should be concerned, does she need to change med? May reach her at [phone]. Goes to the [facility] pharmacy at [phone]. Created on [id number] 10:13am by AKI ARITA On 13Mar2004 10:59am NEVA LOPEZ wrote: I spoke with pt. Rec. starting on Ortho-Novum 135 x 1 packet with 2 refills. Please call in to Pharm. Acknowledged by NEVA LOPEZ on 10:59am On 13Mar2004 11:31am KO MINER wrote: rx called to pharmacy Acknowledged by KO MINER on 11:31am documented in this encounter Plan of Treatment Not on filedocumented as of this encounter Visit Diagnoses Not on filedocumented in this encounter Care Teams Grounds Manager Relationship Specialty Start Date End Date Neva Lopez MD PCP - General 10/31/10 [address] [place] [address] documented as of this encounter
--- OUTSIDE RECORDS SUMMARY | 2022-03-09 15:02 | XMS_ITS | Encounter Summary ---
:1985 Author Organization [facility] Address [address] [place] [address] Care Team Providers Name Role Phone Leela Ruano MD Primary Care Provider Encounter Details Date Type Department Care Team Description 04/03/2007 PN Conversion Only BONITA CONVERSIO N Penny, [address] [facility] [place] [address] [place] [address] (Wo rk) Social History Tobacco Use Types [...] Complete Blood Count-W/Diff (04/03/2007 11:50 AM CDT) [facility] Method Time Signature White Blood Cell [...] - HP CONVERSION Hemoglobin Conc 36.5 gm/dL [place] RDW 12.3 11.0 - HP CONVERSION 15.0 [...] Routine(Micro If Pos) (04/03/2007 11:50 AM CDT) [facility] Method Time Signature Turbidity Clear No [...] Specific 1.020 1.005 - 25 HP CONVERSION [place] Specimen (Source) Anatomical Collection Method Collection Time Re ceived Time Location / / Volume Laterality 04/03/2007 11:50 AM CDT Jacky Francis MD LAB_1 Performing Organization Address [facility] Code Phon e Number HP CONVERSION (ABNORMAL) [...] Jacky Francis MD LAB_1 Performing Organization Address [facility] Code Phon e Number HP CONVERSION Helicobacter [...] Jacky Francis MD LAB_1 Performing Organization Address [facility] Phon e Number HP CONVERSION Urine Culture (04/03/2007 11:37 AM CDT) Analysis Performed At [facility] Time Signature Urine Culture SEE TEXT HP CONVERSION Comment: Patient: CASSIDY KIRKLAND Culture, Urine @ ?Collected: ??[id number] ??1137 Source: Clean Ca ?Processed: ??[id number] ??1137 ? SENS,1V Final Report ------ ?[id number] ??1126 10-50,000 CFU/mL mixed gram positive org anisms No further workup @ = URINE CULTURE Performed at [address] [facility], [place], [place] ?[address] Specimen (Source) Anatomical Collection Method Collection Time Re ceived Time Location / / Volume Laterality 04/03/2007 11:37 AM CDT Jacky Francis MD LAB_1 Performing Organization Address [facility] Phon e Number HP CONVERSION Test (Urine) (04/03/2007 11:37 AM CDT) [facility] gist Method Time Signature Urine Negative No [...] Jacky Francis MD LAB_1 Performing Organization Address [facility] Phon e Number HP CONVERSION documented in this encounter Visit Diagnoses Not on filedocumented in this encounter Care Teams Crusher Operator Relationship Specialty Start Date End Date Leela Ruano MD PCP - General 10/31/10 [address] [place] [address] documented as of this encounter
--- OUTSIDE RECORDS SUMMARY | 2022-03-09 15:02 | XMS_ITS | Encounter Summary ---
:1985 Author Organization [employer] [facility] Address [address] [place] [address] Care Team Providers Name Role Phone Leela Ruano MD Primary Care Provider Encounter Details Date Type Department Care Team Description 01/10/2006 PN Conversion Only [place] CON[place] N Leela Ruano, [address] [place] [address] [facility] [place] [address] (Wo rk) Social History Tobacco [...] Transmitted Disease Probe (01/10/2006 3:38 PM CDT) [facility] Method Time Signature Sexually SEE TEXT HP CONVERSION Transmitted Disease Probe Comment: Patient: CASSIDY KIRKLAND Sexually Trans Disease Probe @ ?Collected: ??[id number] ??1538 Source: ENDOCERV ?Processed: ??[id number] ??1538 ? V Final Report ------ ?[id number] ??1359 No Chlamydia trachomatis detected by amp lified DNA assay No Neisseria gonorrhoeae detected by amp lified DNA assay The Probetec Amplified DNA assay is laila red by the FDA for non-medicolegal diagnostic testing in the adult population. It has not been cleared for use in the pediatric population. @ = Sexually Trans Disease Probe Perform ed at ??[address] [place] [address] Specimen (Source) Anatomical Collection Method Collection Time Re ceived Time Location / / Volume Laterality 01/10/2006 3:38 PM CDT Leela Ruano MD LAB_1 Performing Organization Address City/State/ZIP Code Phon e Number HP CONVERSION Pap Smear (01/10/2006 2:33 PM CDT) [facility] gist Method Time Signature PAP Smear SEE TEXT No normal HP CONVERSION Liquid Based range Comment: Patient: CASSIDY KIRKLAND ? CERVICAL CYTOLOGY REPORT Pathology # ??[id number] ?Date Obtained: ? Date Received: CYTOLOGIC IMPRESSION: [...] filedocumented in this encounter Care Teams Hearing Stenographer Relationship Specialty Start Date End Date Leela Ruano MD PCP - General 10/31/10 [address] [place] [address] documented as of this encounter
--- OUTSIDE RECORDS SUMMARY | 2022-03-09 15:02 | XMS_ITS | Encounter Summary ---
:1985 Author Organization [facility] Address [address] [place] [address] Care Team Providers Name Role Phone Leela Ruano MD Primary Care Provider Encounter Details Date Type Department Care Team Description 01/10/2006 PN Conversion Only [place] CONVER[place] N Leela Ruano, [address] [facility] [place] [address] [facility] [place] [address] (Wo rk) Social History Tobacco [...] filedocumented in this encounter Care Teams Human Service Technician Relationship Specialty Start Date End Date Leela Ruano MD PCP - General 10/31/10 [address] [place] [address] documented as of this encounter
--- OUTSIDE RECORDS SUMMARY | 2022-03-09 15:02 | XMS_ITS | Encounter Summary ---
:1985 Author Organization [facility] Address [address] [place] [address] Care Team Providers Name Role Phone Leela Ruano MD Primary Care Provider Reason for Visit Reason Comments Other Encounter Details Date Type Department Care Team Description 03/29/2005 Telephone [facility], Message Other [address] [place] [address] Social History Tobacco Use Types Packs/Day Years Used Date Smoking Tobacco: Never Assessed Sex Assigned at Date Recorded Not on file documented as of this encounter Progress Notes Center, Message - 03/29/2005 2:44 PM CDT Phone Note filed by Conferen[employer] at 11/13/102019 Author: Conferensum Service: (none) Author Type: (none) Filed: 11/13/102019 Note Time: 03/29/051443 Status: Signed Pulmonology Technician: Conferensum Pt was seen today, was told to check with insurance company to see which OCP would be covered- either Enpres or Trivora would work. Please call into [employer] in [place]- [phone]. Created on 29Mar2005 2:44pm by YOLI THOMAS On 29Mar2005 4:22pm GIGI FELICIANO wrote: ok for trivora, taken as directed, #84 with 1 refill, then needs pap. Acknowledged by GIGI FELICIANO on 1Sep 4:22pm On [id number] 8:19am YOLI THOMAS wrote: Script faxed to pt's pharmacy, given one refill with note that pt will be due for pap. Acknowledged by YOLI THOMAS on 8:19am ING TRUCKER documented in this encounter Plan of Treatment Not on filedocumented as of this encounter Visit Diagnoses Not on filedocumented in this encounter Care Teams Assistant Professor Of Spanish Relationship Specialty Start Date End Date Leela Ruano MD PCP - General 10/31/10 [address] [place] [address] documented as of this encounter
--- OUTSIDE RECORDS SUMMARY | 2022-03-09 15:02 | XMS_ITS | Encounter Summary ---
:1985 Author Organization [facility] Address [address] [place] [address] Care Team Providers Name Role Phone Leela Ruano MD Primary Care Provider Reason for Visit Reason Comments Other Encounter Details Date Type Department Care Team Description 04/14/2007 Telephone [facility] [address] Lavern Leone Other Gastroenterology [address] [facility] [place] [address] Social History Tobacco Use Types Packs/Day Years Used Date Smoking Tobacco: Never Assessed Sex Assigned at Date Recorded Not on file documented as of this encounter Progress Notes Lavern Leone - 04/14/2007 4:37 PM CDT Phone Note filed by Lavern Leone RN at 11/15/108 Author: Lavern Leone RN Service: (none) Author Type: (none) Filed: 11/15/10 0418 Note Time: 04/14/07 1637 Status: Signed General Education Instructor: Trung Nguyen pre-assessment completed for endoscopic procedure. Created on 14Apr2007 4:37pm by LAVERN LEONE TECH documented in this encounter Plan of Treatment Not on filedocumented as of this encounter Visit Diagnoses Not on filedocumented in this encounter Care Teams Unit Manager Convenience Stores Relationship Specialty Start Date End Date Leela Ruano MD PCP - General 10/31/10 [address] [place] [address] documented as of this encounter
--- OUTSIDE RECORDS SUMMARY | 2022-03-09 15:02 | XMS_ITS | Encounter Summary ---
:1985 Author Organization [facility] Address [address], [place] [address] Care Team Providers Name Role Phone Leela Ruano MD Primary Care Provider Reason for Visit Reason Comments Other Encounter Details Date Type Department Care Team Description 12/18/2005 Telephone [facility], Message Other [address] [place], [place] [address] Social History Tobacco Use Types Packs/Day Years Used Date Smoking Tobacco: Never Assessed Sex Assigned at Date Recorded Not on file documented as of this encounter Progress Notes Center, Message - 12/18/2005 10:12 AM CDT Phone Note filed by [employer] at 11/14/10420 Author: [employer] Service: (none) Author Type: (none) Filed: 11/14/10420 Note Time: 12/18/05 1012 Status: Signed Foster Care Therapist: [employer] PRESCRIPTION REFILL: Please provide enough refills to last until patient's next visit. Comment:- [facility] [place] [place] [facility] Clinician Name:-[facility] Name/Strength:-Triphasil 28 Sig:-Take [...] BARBER wrote: left message on voice mail. ICAL ADMINISTRATIVE ASSISTANT documented in this encounter Plan of Treatment Not on filedocumented as of this encounter Visit Diagnoses Not on filedocumented in this encounter Care Teams Indirect Sales Exec Relationship Specialty Start Date End Date Leela Ruano MD PCP - General 10/31/10 [address] [place] [address] documented as of this encounter
--- OUTSIDE RECORDS SUMMARY | 2022-03-09 15:02 | XMS_ITS | Encounter Summary ---
:1985 Author Organization [facility] Address [address] [place] [address] Care Team Providers Name Role Phone Neva Lopez MD Primary Care Provider Encounter Details Date Type Department Care Team Description 08/16/2004 Office Visit [facility] [place] [address] [address] [place] [address] [place] [address] [phone] (Wo rk) Social History Tobacco Use Types Packs/Day Years Used Date Smoking Tobacco: Never Assessed Sex Assigned at Date Recorded Not on file documented as of this encounter Progress Notes Neva Lopez MD - 08/16/2004 12:01 AM CST H&P signed by ARIANNA Love at 08/18/04 1959 Author: AIRANNA Love Service: (none) Author Type: Physician Filed: 11/17/10 0255 Note Time: 08/16/042010 Status: Signed Instant Potato Processor: ARIANNA Love (Physician) NAME: CASSIDY KIRKLAND MR: [id number] ACCT: [id number] VISIT: [id number] DICTATING CLINICIAN: NEVA LOPEZ MD JOB: [id number] CLINIC PHYSICAL DATE OF VISIT: 08/16/2004 SUBJECTIVE: [...] SOCIAL HISTORY: Single. Is a student at [employer]. Is living at home. Does not smoke [...] note that I did do an STD [place] check today along with her Pap smear. PLAN: See assessment. GLB:[id number] C: 08/17/04 09:14 DOCUMENT: [id number] OPULPER OPERATOR documented in this encounter Plan of Treatment Not on filedocumented as of this encounter Visit Diagnoses Not on filedocumented in this encounter Care Teams Technical Training Manager Relationship Specialty Start Date End Date Neva Lopez MD PCP - General 10/31/10 [address] [place] [address] documented as of this encounter
--- OUTSIDE RECORDS SUMMARY | 2022-03-09 15:02 | XMS_ITS | Encounter Summary ---
:1985 Author Organization [employer] Address [address] [address] Care Team Providers Name Role Phone Leela Ruano MD Primary Care Provider Encounter Details Date Type Department Care Team Description 06/05/2006 Office Visit [facility] Alen Mccall PA-C [address] [facility] [address] [place] [address] [place] [address] [phone] (Wo rk) Social History Tobacco Use Types Packs/Day Years Used Date Smoking Tobacco: Never Assessed Sex Assigned at Date Recorded Not on file documented as of this encounter Last Filed Vital Signs Vital Sign Reading Time Taken Comments Blood Pressure 141/77 06/05/2006 11:12 AM MALT LIQUORS SALES SUPERVISOR Pulse 86 06/05/2006 11:12 AM MALT LIQUORS SALES SUPERVISOR Temperature 36.7 ??C (98.1 ??F) 06/05/2006 11:12 AM MALT LIQUORS SALES SUPERVISOR C: 3 6.7 C Respiratory Rate 16 06/05/2006 11:12 AM MALT LIQUORS SALES SUPERVISOR Oxygen Saturation - - Inhaled Oxygen Concentration - - Weight - - Height - - Body Mass Index - - documented in this encounter Progress Notes Alen Mccall PA-C - 06/05/2006 12:01 AM CST Progress Notes signed by Alen Mccall PA-C at 06/21/062009 Author: Alen Mccall PA-C Service: (none) Author Type: Physician Practice Performance Manager Filed: 11/17/10 1545 Note Time: 06/05/062010 Status: Signed Bike Shop Manager: Alen Mccall PA-C (Physician Practice Performance Manager) NAME: CASSIDY KIRKLAND MR#: [id number] ACCT: [id number] VISIT: [id number] DICTATING CLINICIAN: ALEN MCCALL PA-C JOB: [id number] LOC: 520 CLINIC PROGRESS NOTE DATE OF [...] saltwater gargles, Tylenol or ibuprofen. Return p.r.n. TJL:[id number] C: 06/06/06 12:29 DOCUMENT: [id number] LIQUORS SALES SUPERVISOR documented in this encounter Plan of Treatment Not on filedocumented as of this encounter Visit Diagnoses Not on filedocumented in this encounter Care Teams Manager Publishing Relationship Specialty Start Date End Date Leela Ruano MD PCP - General 4/[phone] [place] [address] documented as of this encounter
--- OUTSIDE RECORDS SUMMARY | 2022-03-09 15:02 | XMS_ITS | Encounter Summary ---
:1985 Author Organization [facility] Address [address] [place] [address] Care Team Providers Name Role Phone Leela Ruano MD Primary Care Provider Encounter Details Date Type Department Care Team Description 08/16/2004 PN Conversion Only [facility] [facility] Leela Ruano, [address] [facility] [place] [address] [facility] [place] [address] (Wo rk) Social History Tobacco Use Types Packs/Day Years Used Date Smoking Tobacco: Never Assessed Sex Assigned at Date Recorded Not on file documented as of this encounter Plan of Treatment Not on filedocumented as of this encounter Procedures Procedure Name Priority Date/Time Associated Comments Diagnosis SEXUALLY TRANSMITTED Routine 08/16/2004 2:15 PM R esults for this DISEASE PROBE RAILWAY SWITCH OPERATOR procedure are in the results section. THYROID STIMULATING Routine 08/16/2004 1:26 PM Re sults for this HORMONE RAILWAY SWITCH OPERATOR procedure are i n the results section. HEMOGLOBIN, BLOOD Routine 08/16/2004 1:26 PM Resu lts for this RAILWAY SWITCH OPERATOR procedure are i n the results section. ANATOMICAL PATH Routine 08/16/2004 7:25 AM Result s for this LIQUID BASED RAILWAY SWITCH OPERATOR procedure are i n the results section. documented in this encounter Results Sexually Transmitted Disease Probe (08/16/2004 2:15 PM RAILWAY SWITCH OPERATOR) [facility] Method Time Signature Sexually SEE TEXT HP CONVERSION Transmitted Disease Probe Comment: Patient: CASSIDY KIRKLAND Sexually Trans Disease Probe @ ?Collected: ??[id number] ??[id number] Source: ENDOCERV ?Processed: ??[id number] ??1415 ? V Final Report ------ ?[id number] ??1318 No Chlamydia trachomatis detected by amp lified DNA assay No Neisseria gonorrhoeae detected by amp lified DNA assay @ = Sexually Trans Disease Probe Perform ed at ??[address] [facility] [place] [address] Specimen (Source) Anatomical Collection Method Collection Time Re ceived Time Location / / Volume Laterality 08/16/2004 2:15 PM RAILWAY SWITCH OPERATOR Leela Ruano MD LAB_1 Performing Organization Address City/[facility] Phon e Number HP CONVERSION Thyroid Stimulating Hormone (08/16/2004 1:26 PM RAILWAY SWITCH OPERATOR) athologist Signature Thyroid 0.62 0.20 - HP CONVERSION Stimulating 5.50 Hormone uIU/mL Specimen (Source) Anatomical Collection Method Collection Time Re ceived Time Location / / Volume Laterality 08/16/2004 1:26 PM RAILWAY SWITCH OPERATOR Leela Ruano MD LAB_1 Performing Organization Address [facility]/ZIP Code Phon e Number HP CONVERSION Hemoglobin, Blood (08/16/2004 1:26 PM RAILWAY SWITCH OPERATOR) P athologist Signature Hemoglobin 15.4 11.8 - 15.5 HP CONVERSION gm/dL Specimen (Source) Anatomical Collection Method Collection Time Re ceived Time Location / / Volume Laterality 08/16/2004 1:26 PM RAILWAY SWITCH OPERATOR Leela Ruano MD LAB_1 Performing Organization Address [facility] Code Phon e Number HP CONVERSION Pap Smear (08/16/2004 7:25 AM RAILWAY SWITCH OPERATOR) Patholo gist Method Time Signature PAP Smear SEE TEXT No normal HP CONVERSION Liquid Based range Comment: Patient: CASSIDY KIRKLAND ? CERVICAL CYTOLOGY REPORT Pathology # ??[id number] ?Date Obtained: ? Date Received: CYTOLOGIC IMPRESSION: Negative for intraepithelial lesion or m alignancy. Fungal organisms identified. ? AFSHIN TIONAL DATA LMP: CLINICAL HIST ? 08-06-04 LIQUID BASED PAP CERVICAL SPECIMEN ADEQUACY: ?? Satisfactory. ENDOCERVICAL CELLS: ??Absent. Verified 08/22/04 by: ??LBM ?(electronic signature) Specimen (Source) Anatomical Collection Method Collection Time Re ceived Time Location / / Volume Laterality 08/16/2004 7:25 AM RAILWAY SWITCH OPERATOR Leela Ruano MD LAB_1 Performing Organization Address City/[facility] Code Phon e Number HP CONVERSION documented in this encounter Visit Diagnoses Not on filedocumented in this encounter Care Teams Maritime Officer Relationship Specialty Start Date End Date Leela Ruano MD PCP - General 10/31/10 [address] [address] [place] [address] documented as of this encounter
--- OUTSIDE RECORDS SUMMARY | 2022-03-09 15:02 | XMS_ITS | Encounter Summary ---
:1985 Author [facility] Address [address] [place] [address] Care Team Providers Name Role Phone Leela Ruano MD Primary Care Provider Reason for Visit Reason Comments Other Encounter Details Date Type Department Care Team Description 04/11/2007 Telephone [facility] Yane Dailey MD Other [address] [address] [place] [address] [place] [address] [phone] (Wo rk) Social History Tobacco Use Types Packs/Day Years Used Date Smoking Tobacco: Never Assessed Sex Assigned at Date Recorded Not on file documented as of this encounter Progress Notes Conversion, [facility] - 04/11/2007 11:09 AM CDT Phone Note filed by [facility] Conversion at 11/15/10406 Author: Trung Conversion Service: (none) Author Type: (none) Filed: 11/15/10406 Note Time: 04/11/071108 Status: Signed Senior Portfolio Analyst: Trung Nguyen Front Line Sx Call Caller Name/Relationship:Cassidy Primary Reservations Sales Supervisor:Bindu Symptom or request?stomach pain/ work in Is appointment scheduled & when? Protection Agent:Pt Best call back number:[phone] Is it OK to leave a confidential message on this voicemail? *ECODE~PNSX2 Created on 11Apr2007 11:09am by AYDEN ROSE On 11Apr2007 11:24am LIZ THOMAS wrote: Pt has appt 04-14-07 with for follow up [facility]. Pt knows to go to [facility] if needed before appt. Acknowledged by YANE FELICIANO on 12:09pm MACHINE TENDER documented in this encounter Plan of Treatment Not on filedocumented as of this encounter Visit Diagnoses Not on filedocumented in this encounter Care Teams Network Support Analyst Relationship Specialty Start Date End Date Leela Ruano MD PCP - General 10/31/10 [address] [address] [place] [place] [address] documented as of this encounter
--- OUTSIDE RECORDS SUMMARY | 2022-03-09 15:02 | XMS_ITS | Encounter Summary ---
:1985 Author Organization [employer] Address [address] [address] Care Team Providers Name Role Phone Leela Ruano MD Primary Care Provider Encounter Details Date Type Department Care Team Description 03/29/2005 Office Visit [facility] Debbie Asencio MD [address] [id number] [place] [address] [phone] Social History Tobacco Use Types Packs/Day Years [...] CDT Progress Notes signed by at 05/04/05 6986 Author: Yane Feliciano MD Service: (none) Author Type: (none) Filed: 11/17/10 0711 Note Time: 03/29/05 0001 Status: Signed Filling Station Attendant: Trung Conversion NAME: CASSIDY KIRKLAND MR: [id number] ACCT: [id number] VISIT: [id number] DICTATING CLINICIAN: YANE FELICIANO MD JOB: [id number] CLINIC PROGRESS NOTE DATE OF VISIT: 03/29/2005 [...] benefits, risks and side effects of medications. [id number] C: 03/30/05 13:53 DOCUMENT: [id number] OGIST AIDE documented in this encounter Plan of Treatment Not on filedocumented as of this encounter Visit Diagnoses Not on filedocumented in this encounter Care Teams Director Clinical Information Services Relationship Specialty Start Date End Date Leela Ruano MD PCP - General 10/31/10 [address] [place] [address] documented as of this encounter
--- OUTSIDE RECORDS SUMMARY | 2022-03-09 15:02 | XMS_ITS | Encounter Summary ---
:1985 Author Organization [facility] Address [address] [place] [address] Care Team Providers Name Role Phone Neva Lopez MD Primary Care Provider Encounter Details Date Type Department Care Team Description 05/04/2004 Office Visit [facility] [place] [address] [address] [place] [address] [place] [address] [phone] (Wo rk) Social History Tobacco Use Types Packs/Day Years Used Date Smoking Tobacco: Never Assessed Sex Assigned at Date Recorded Not on file documented as of this encounter Progress Notes Neva Lopez MD - 05/04/2004 12:01 AM CDT Progress Notes signed by ARIANNA Love at 05/04/042014 Author: ARIANNA Love Service: (none) Author Type: Physician Filed: 11/17/10 0103 Note Time: 05/04/042014 Status: Signed Desk Interviewer: ARIANNA Love (Physician) NAME: CASSIDY KIRKLAND MR: [id number] ACCT: [id number] VISIT: [id number] DICTATING CLINICIAN: NEVA LOPEZ MD JOB: [id number] CLINIC PROGRESS NOTE DATE OF VISIT: 05/04/2004 [...] high school. She is now going to [employer] and is living at home. She plans to transfer to [employer] in a couple of years. She has [...] sign at the right wrist, good hand classer noted. ASSESSMENT: 1. Contraception, doing well. Continue [...] up if this worsens. PLAN: See assessment. [id number]:[id number] C: 05/04/04 17:16 DOCUMENT: [id number] documented in this encounter Plan of Treatment Not on filedocumented as of this encounter Visit Diagnoses Not on filedocumented in this encounter Care Teams Secondary Special Education Teacher Relationship Specialty Start Date End Date Neva Lopez MD PCP - General 10/31/10 [address] [place] [place] [address] documented as of this encounter
--- OUTSIDE RECORDS SUMMARY | 2022-03-09 15:02 | XMS_ITS | Encounter Summary ---
:1985 Author Organization [facility] Address [address] [place] [address] Care Team Providers Name Role Phone Leela Ruano MD Primary Care Provider Encounter Details Date Type Department Care Team Description 01/09/2006 PN Conversion Only [place] [facility] [address] [place] [address] Social History Tobacco Use Types Packs/Day Years Used Date Smoking Tobacco: Never Assessed Sex Assigned at Date Recorded Not on file documented as of this encounter Plan of Treatment Not on filedocumented as of this encounter Visit Diagnoses Not on filedocumented in this encounter Care Teams Lock Setter Relationship Specialty Start Date End Date Leela Ruano MD PCP - General 10/31/[address] [place] [id number] documented as of this encounter
--- OUTSIDE RECORDS SUMMARY | 2022-03-09 15:02 | XMS_ITS | Encounter Summary ---
:1985 Author Organization [employer] Address [address] [place] [address] Care Team Providers Name Role Phone Leela Ruano MD Primary Care Provider Encounter Details Date Type Department Care Team Description 04/03/2007 Office Visit [facility] [place], [address] [facility] [place] [address] [address] [facility] [phone] [place] [address] (Wo rk) Social History Tobacco [...] 11/17/10 2148 Note Time: 04/03/072010 Status: Signed Radar Engineer: Jacky Francis MD (Physician) NAME: CASSIDY KIRKLAND MR#: [id number] ACCT: [id number] VISIT: [id number] DICTATING CLINICIAN: SANTIAGO FRANCIS MD JOB: [id number] LOC: 520 CLINIC PROGRESS NOTE DATE OF [...] she can return; otherwise follow up p.r.n. LW:[id number] C: 04/03/07 13:13 DOCUMENT: [id number] documented in this encounter Plan of Treatment Not on filedocumented as of this encounter Visit Diagnoses Not on filedocumented in this encounter Care Teams Acute Care Assistant Relationship Specialty Start Date End Date Leela Ruano MD PCP - General 10/31/10 [address] [address] [place] [address] documented as of this encounter
--- OUTSIDE RECORDS SUMMARY | 2022-03-09 15:02 | XMS_ITS | Encounter Summary ---
:1985 Author Organization [facility] Address [address] [place] [address] Care Team Providers Name Role Phone Leela Ruano MD Primary Care Provider Encounter Details Date Type Department Care Team Description 06/05/2006 PN Conversion Only [place] [facility] Alonso Mccall, [address] [employer] [facility] [place], [place] [address] [address] [place] [address] [place], [place] [address] (Wo rk) Social History Tobacco Use Types Packs/Day Years Used Date Smoking Tobacco: Never Assessed Sex Assigned at Date Recorded Not on file documented as of this encounter Plan of Treatment Not on filedocumented as of this encounter Procedures Procedure Name Priority Date/Time Associated Diagnosis Comme nts STREP GROUP A Routine 06/05/2006 2:09 PM Results for this ANTIGEN TEST CONSTRUCTION ACCOUNTANT procedure are i n the results section. BETA STREP FOLLOWUP Routine 06/05/2006 2:09 PM Re sults for this CONSTRUCTION ACCOUNTANT procedure are i n the results section. documented in this encounter Results Strep Group A Antigen Test (06/05/2006 2:09 PM CONSTRUCTION ACCOUNTANT) Analysis Performed At Patho logist Time Signature Strep Group A Negative Negative HP CONVERSION Antigen Test Comment: Culture to follow. Specimen (Source) Anatomical Collection Method Collection Time Re ceived Time Location / / Volume Laterality 06/05/2006 2:09 PM CONSTRUCTION ACCOUNTANT Alonso Mccall PA-C LAB_1 Performing Organization Address City/State/ZIP Code Phon e Number HP CONVERSION Beta Strep Followup (06/05/2006 2:09 PM CONSTRUCTION ACCOUNTANT) P athologist Signature Strep Screen SEE TEXT HP CONVERSION Comment: Patient: CASSIDY KIRKLAND Rapid Strep Follow up Culture @ ? Collected: ??[id number] ??[id number] Source: Throat ?Processed: ??[id number] ??1415 Final Report ------ ?[id number] ??0730 No beta hemolytic Strep group A isolated . @ = Rapid F/U Cult Performed at ??[address] [facility] [place], [place] ?[address] Specimen (Source) Anatomical Collection Method Collection Time Re ceived Time Location / / Volume Laterality 06/05/2006 2:09 PM CONSTRUCTION ACCOUNTANT Alonso Mccall PA-C LAB_1 Performing Organization Address City/State/ZIP Code Phon e Number HP CONVERSION documented in this encounter Visit Diagnoses Not on filedocumented in this encounter Care Teams Staying Machine Operator Relationship Specialty Start Date End Date Leela Ruano MD PCP - General 10/31/10 [address] [address] [place] [address] documented as of this encounter
--- OUTSIDE RECORDS SUMMARY | 2022-03-09 15:03 | XMS_ITS | Encounter Summary ---
:1985 Author Organization [facility] Address [address] [place] [address] Care Team Providers Name Role Phone Leela Ruano MD Primary Care Provider Encounter Details Date Type Department Care Team Description 09/06/2003 PN Conversion Only [place] [address] [facility] [address] [place], [place] [address] [place] [address] (Wo rk) Social History Tobacco Use Types Packs/Day Years Used Date Smoking Tobacco: Never Assessed Sex Assigned at Date Recorded Not on file documented as of this encounter Plan of Treatment Not on filedocumented as of this encounter Procedures Procedure Name Priority Date/Time Associated Diagnosis Comme nts STREP GROUP A Routine 09/06/2003 1:08 PM Results for this ANTIGEN TEST LICENSED CUSTOMS BROKER procedure are i n the results section. BETA STREP FOLLOWUP Routine 09/06/2003 1:08 PM Re sults for this LICENSED CUSTOMS BROKER procedure are i n the results section. documented in this encounter Results Strep Group A Antigen Test (09/06/2003 1:08 PM LICENSED CUSTOMS BROKER) Analysis Performed At Patho logist Time Signature Strep Group A Negative Negative HP CONVERSION Antigen Test Comment: Culture to follow. Specimen (Source) Anatomical Collection Method Collection Time Re ceived Time Location / / Volume Laterality 09/06/2003 1:08 PM LICENSED CUSTOMS BROKER Bhupendra Dooley MD LAB_1 Performing Organization Address City/State/ZIP Code Phon e Number HP CONVERSION Beta Strep Followup (09/06/2003 1:08 PM LICENSED CUSTOMS BROKER) P athologist Signature Strep Screen SEE TEXT HP CONVERSION Comment: Patient: CASSIDY KIRKLAND Rapid Strep Follow up Culture @ ? Collected: ??[id number] ??[id number] Source: Throat ?Processed: ??[id number] ??1310 ? 1V Final Report ------ ?[id number] ??0748 No beta hemolytic Strep group A isolated . @ = Rapid F/U Cult Performed at ??[address] [place], [place] ?[address] Specimen (Source) Anatomical Collection Method Collection Time Re ceived Time Location / / Volume Laterality 09/06/2003 1:08 PM LICENSED CUSTOMS BROKER Bhupendra Dooley MD LAB_1 Performing Organization Address City/[facility]/ZIP Code Phon e Number HP CONVERSION documented in this encounter Visit Diagnoses Not on filedocumented in this encounter Care Teams Superintendent Meter Tests Relationship Specialty Start Date End Date Leela Ruano MD PCP - General 10/31/10 [address] [address] [place] [address] documented as of this encounter
--- OUTSIDE RECORDS SUMMARY | 2022-03-09 15:03 | XMS_ITS | Encounter Summary ---
:1985 Author Organization [facility] Address [address] [place] [address] Care Team Providers Name Role Phone Leela Ruano MD Primary Care Provider Encounter Details Date Type Department Care Team Description 06/02/2003 PN Conversion Only [place] [facility] Leela Ruano, [address] [facility] [place] [address] [facility] [address] [address] (Wo rk) Social History Tobacco Use Types Packs/Day Years Used Date Smoking Tobacco: Never Assessed Sex Assigned at Date Recorded Not on file documented as of this encounter Plan of Treatment Not on filedocumented as of this encounter Procedures Procedure Name Priority Date/Time Associated Comments Diagnosis ANATOMICAL PATH Routine 06/02/2003 9:45 AM Result s for this LIQUID BASED MEAT STOCKER procedure are i n the results section. documented in this encounter Results Pap Smear (06/02/2003 9:45 AM MEAT STOCKER) [facility] gist Method Time Signature PAP Smear SEE TEXT No normal HP CONVERSION Liquid Based range Comment: Patient: CASSIDY KIRKLAND ? CERVICAL CYTOLOGY REPORT Pathology # ??[id number] ?Date Obtained: ? Date Received: CYTOLOGIC IMPRESSION: [...] / / Volume Laterality 06/02/2003 9:45 AM MEAT STOCKER Leela Ruano MD LAB_1 Performing Organization Address City/State/ZIP Code Phon e Number HP CONVERSION documented in this encounter Visit Diagnoses Not on filedocumented in this encounter Care Teams Threshing Department Supervisor Relationship Specialty Start Date End Date Leela Ruano MD PCP - General 10/31/10 [address] [address] [place] [address] documented as of this encounter
--- OUTSIDE RECORDS SUMMARY | 2022-03-09 15:03 | XMS_ITS | Encounter Summary ---
:1985 Author Organization [facility] Address [address] [place] [address] Care Team Providers Name Role Phone Leela Ruano MD Primary Care Provider Encounter Details Date Type Department Care Team Description 01/30/2003 PN Conversion Only [place] [facility] Chuck Gutierrez, [address] [facility] [place] [address] [place] [address] Social History Tobacco Use Types Packs/Day Years Used Date Smoking Tobacco: Never Assessed Sex Assigned at Date Recorded Not on file documented as of this encounter Plan of Treatment Not on filedocumented as of this encounter Visit Diagnoses Not on filedocumented in this encounter Care Teams Pawn Shop Keeper Relationship Specialty Start Date End Date Leela Ruano MD PCP - General 10/31/[address] [place] [address] [address] [place] [id number] documented as of this encounter
--- OUTSIDE RECORDS SUMMARY | 2022-03-09 15:03 | XMS_ITS | Encounter Summary ---
:1985 Author Organization [facility] Address [address] [place] [address] Care Team Providers Name Role Phone Leela Ruano MD Primary Care Provider Encounter Details Date Type Department Care Team Description 01/30/2003 PN Conversion Only [place] [facility] Chuck Gutierrez, [address] [facility] [place] [address] [place] [address] Social History Tobacco Use Types Packs/Day Years [...] Alonso Mccall PA-C LAB_1 Performing Organization Address [facility] Phon e Number HP CONVERSION Beta Strep Followup (01/30/2003 12:50 PM CDT) athologist Signature Strep Screen SEE TEXT HP CONVERSION Comment: Patient: CASSIDY KIRKLAND Rapid Strep Follow up Culture @ ? Collected: ??[id number] ??[id number] Source: Throat ?Processed: ??[id number] ??1251 ? 1V Final Report ------ ?[id number] ??0931 No beta hemolytic Strep group A isolated . @ = Rapid F/U Cult Performed at [address] [place] ?[address] Specimen (Source) Anatomical Collection Method Collection Time Re ceived Time Location / / Volume Laterality 01/30/2003 12:50 PM CDT Alonso Mccall PA-C LAB_1 Performing Organization Address [facility] Phon e Number HP CONVERSION WBC, Blood (01/30/2003 11:49 AM CDT) athologist Signature White Blood 9.1 3.8 - 11.0 HP CONVERSION Cell Count K/cmm Specimen (Source) Anatomical Collection Method Collection Time Re ceived Time Location / / Volume Laterality 01/30/2003 11:49 AM CDT Alonso Mccall PA-C LAB_1 Performing Organization Address [facility] Phon e Number HP CONVERSION (ABNORMAL) Differential Manual (01/30/2003 11:49 AM CDT) [facility] Method Time Signature Neutrophils 81 (H) 34 [...] Alonso Mccall PA-C LAB_1 Performing Organization Address [facility] Phon e Number HP CONVERSION Mononucleosis Screen (01/30/2003 11:49 AM CDT) [facility] Method Time Signature Infectious Negative Negative HP CONVERSION Mononucleosis Screen Specimen (Source) Anatomical Collection Method Collection Time Re ceived Time Location / / Volume Laterality 01/30/2003 11:49 AM CDT Alonso Mccall PA-C LAB_1 Performing Organization Address City/[facility] Phon e Number HP CONVERSION documented in this encounter Visit Diagnoses Not on filedocumented in this encounter Care Teams Canal Equipment Maintenance Supervisor Relationship Specialty Start Date End Date Leela Ruano MD PCP - General 10/31/10 [address] [address] [place] [id number] documented as of this encounter
--- OUTSIDE RECORDS SUMMARY | 2022-03-09 15:03 | XMS_ITS | Encounter Summary ---
:1985 Author Organization [facility] Address [address] [place] [address] Care Team Providers Name Role Phone Leela Ruano MD Primary Care Provider Encounter Details Date Type Department Care Team Description 04/29/2003 PN Conversion Only [place] [facility] [address] [address] [place] [address] Social History Tobacco Use Types Packs/Day Years Used Date Smoking Tobacco: Never Assessed Sex Assigned at Date Recorded Not on file documented as of this encounter Plan of Treatment Not on filedocumented as of this encounter Visit Diagnoses Not on filedocumented in this encounter Care Teams Stapler Machine Relationship Specialty Start Date End Date Leela Rauno MD PCP - General 10/31/[address] [place] [id number] documented as of this encounter
--- OUTSIDE RECORDS SUMMARY | 2022-03-09 15:03 | XMS_ITS | Encounter Summary ---
:1985 Author Organization [facility] Address [address] [place] [address] Care Team Providers Name Role Phone Neva Lopez MD Primary Care Provider Encounter Details Date Type Department Care Team Description 12/22/2003 PN Conversion Only [place] Contact Aba Hammond, Ed G [address] [place] [address] Social History Tobacco Use Types Packs/Day Years Used Date Smoking Tobacco: Never Assessed Sex Assigned at Date Recorded Not on file documented as of this encounter Progress Notes Neva Lopez MD - 11/25/2003 12:01 AM CDT Progress Notes signed by ARIANNA Love at 01/17/04 1004 Author: ARIANNA Love Service: (none) Author Type: Physician Filed: 11/16/10 2222 Note Time: 11/25/03 0001 Status: Signed Optical Brightener Maker Helper: ARIANNA Love (Physician) NAME: CASSIDY KIRKLAND MR: [id number] ACCT: [id number] VISIT: [id number] DICTATING CLINICIAN: NEVA LOPEZ MD JOB: [id number] CLINIC PROGRESS NOTE DATE OF VISIT: 11/25/2003 [...] EXTREMITIES: No lesions. Gait and coordination fine. GLB:[id number] C: 11/29/03 10:12 DOCUMENT: [id number] Bhupendra Dooley MD - 09/06/2003 12:01 AM CST Progress Notes signed by Bhupendra Dooley MD at 09/06/03 1151 Author: Buhpendra Dooley MD Service: (none) Author Type: Physician Filed: 11/16/10 5379 Note Time: 09/06/032015 Status: Signed Optical Brightener Maker Helper: Bhupendra Dooley MD (Physician) CHIEF COMPLAINT: POSS STREP PROVIDER NOTE: [facility] Acute Clinic Visit IMPRESSION: Pharyngitis Chief Complaint: [...] updated on the Health Profile screen of [facility] Chronic Medications: No chronic medications OBJECTIVE: Vital [...] Shorthand Note completed on: 09/06/03 11:46 AM MACEUTICAL ENGINEER Phone Note, Clinician - 07/06/2003 12:01 AM CST Phone Note signed by ARIANNA Love at 07/16/03 0623 Author: Clinician Phone Note Service: (none) Author Type: Resource Filed: 12/22/03 0000 Note Time: 07/06/03 0001 Status: Signed Optical Brightener Maker Helper: Clinician Phone Note (Resource) - TREATING PROVIDER: NEVA JESSICA * HOME PHONE:[phone] * SUBJECTIVE: * WORK PHONE:[phone] * ALLERGIES/SENSITIVITIES... CURRENT MEDICATIONS... PERTINENT PAST HISTORY... ASSESSMENT: New rx Triphasil DISPOSITION: NO DISPOSITION GIVEN OMITTED ASKING ABOUT . OMITTED ASKING ABOUT NURSING. [facility]... Per Lyndsey Lopez rx approved for Triphasil 28 1 po every day 3 packs with 1 year refill and called to [facility] [phone] CALL BY NAHUM PICKETT 07/06/2003 10:09AM [phone] ADDENDUM: Neva Escamilla MD - 06/02/2003 12:01 AM CST H&P signed by ARIANNA Love at 06/23/03 1533 Author: ARIANNA Love Service: (none) Author Type: Physician Filed: 11/16/10 1714 Note Time: 06/02/03 0001 Status: Signed Optical Brightener Maker Helper: ARIANNA Love (Physician) NAME: CASSIDY KIRKLAND MR: [id number] ACCT: [id number] VISIT: [id number] DICTATING CLINICIAN: NEVA LOPEZ MD JOB: [id number] CLINIC PHYSICAL DATE OF VISIT: 06/02/2003 SUBJECTIVE: [...] a 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 TT: CT: [id number] C: 06/05/03 16:40 DOCUMENT: [id number] MACEUTICAL ENGINEER documented in this encounter Plan of Treatment Not on filedocumented as of this encounter Visit Diagnoses Not on filedocumented in this encounter Care Teams Transliterator Relationship Specialty Start Date End Date Neva Lopez MD PCP - General 10/31/10 [address] [address] [place] [address] documented as of this encounter
--- OUTSIDE RECORDS SUMMARY | 2022-03-09 15:03 | XMS_ITS | Encounter Summary ---
:1985 Author Organization [facility] Address [address] [place] [address] Care Team Providers Name Role Phone Leela Ruano MD Primary Care Provider Encounter Details Date Type Department Care Team Description 04/29/2003 PN Conversion Only [place], [place] [address] [address] [place] [address] [place] [address] [phone] Social History Tobacco Use Types Packs/Day Years Used Date Smoking Tobacco: Never Assessed Sex Assigned at Date Recorded Not on file documented as of this encounter Progress Notes Alonso Mccall PA-C - 01/30/2003 12:01 AM CDT Progress Notes signed by Alonso Mccall PA-C at 04/27/04 1348 Author: Alonso Mccall PA-C Service: (none) Author Type: Physician Trench Digger Filed: 11/16/10 1513 Note Time: 01/30/03 0001 Status: Signed Pneumatic System Conveyor Operator: Alonso Mccall PA-C (Physician Trench Digger) NAME: LEODAN KIRKLAND MR: [id number] ACCT: [id number] VISIT: [id number] DICTATING CLINICIAN: LEANN ROSARIO JOB: [id number] CLINIC PROGRESS NOTE DATE OF VISIT: 01/30/2003 [...] questions or if problems continue. TT: CT: [id number] C: 01/30/03 19:34 DOCUMENT: [id number] Sandie Carrillo MD - 04/25/2002 12:01 AM CDT Progress Notes signed by Sandie Carrillo MD at 05/27/02 1637 Author: Sandie Carrillo MD Service: (none) Author Type: Physician Filed: 11/16/10 0942 Note Time: 04/25/022022 Status: Signed Pneumatic System Conveyor Operator: Sandie Carrillo MD (Physician) IMPRESSION: No dictation required. URI, bronchitis. SUBJECTIVE: No dictation. OBJECTIVE: N/A ASSESSMENT: URI, bronchitis. PLAN: E.E.S. TT: CT: [id number] C: DOCUMENT: [id number] Y LEVEL AUTOMOTIVE TECHNICIAN Conversion, [facility] - 09/29/2001 12:01 AM CST Progress Notes signed by at 09/19/022022 Author: Trung Conversion Service: (none) Author Type: (none) Filed: 11/16/10 0454 Note Time: 09/29/012022 Status: Signed Pneumatic System Conveyor Operator: Trung Conversion IMPRESSION: Acne. SUBJECTIVE: : 85. [...] return on a p.r.n. basis. TT: CT: [id number] C: DOCUMENT: [id number] SCHEDULED RESOURCE: MARSHAL SEBASTIAN / JOSEPH Y LEVEL AUTOMOTIVE TECHNICIAN Conversion, [facility] - 07/28/2001 12:01 AM CST Progress Notes signed by at 09/19/02 0001 Author: Trung Conversion Service: (none) Author Type: (none) Filed: 11/16/10 0325 Note Time: 07/28/01 0001 Status: Signed Pneumatic System Conveyor Operator: Trung Conversion IMPRESSION: Moderate acne. SUBJECTIVE: : 1985. Leodan is a 16-year-old female in today concerned with acne involving her face, back and chest. Finds that she has used just about everything ntgb-vlc-znkwrie without any improvement in her symptoms. Finds that some of the products are more irritating to her skin than helpful for her acne. Is currently using [employer]'s Care ljvh-uuc-lphlhya which involves both a pill and a cream. She does report some cystic-type acne with some scarring on both cheeks present as a result. PAST MEDICAL HISTORY: Benign. CURRENT MEDICATIONS: None. ALLERGIES : PENICILLIN. TOBACCO USE: None. Further complete ROS is negative. Pain and nutrition screening negative. OBJECTIVE: VS/GEN: BP: 104/70 P: 76 Wt: 114 pounds. This is a 16-year-old female in [facility]. She is WH, WN. SKIN: Warm and [...] or concerns prior to that. TT: CT: [id number] C: DOCUMENT: [id number] SCHEDULED RESOURCE: MARSHAL SEBASTIAN / JOSEPH Kori Daily APRN, CNP - 02/28/2000 12:01 AM CDT Progress Notes signed by Kori Alicia APRN, CNP at 12/02/00 0654 Author: TATO Davis Service: (none) Author Type: Nurse Practitioner Filed: 11/15/10 1801 Note Time: 02/28/00 0001 Status: Signed Pneumatic System Conveyor Operator: TATO Davis (Nurse Practitioner) IMPRESSION: Tlahrezv-lzav-ncn well-child physical exam. Rule out scoliosis. SUBJECTIVE: [...] recently had her eyes checked by an civil engineering professional. One eye was nearsighted, the other eye [...] Skin without rashes or bruises noted. ASSESSMENT: Qxxmtltg-fqsx-lip well-child physical exam. Rule out scoliosis. PLAN: [...] action according to the degree of curvature. [facility]:[id number] C: DOCUMENT: [id number] Junior Posadas MD - 12/20/1999 12:01 AM CDT Progress Notes signed by Junior Posadas MD at 05/27/02 3517 Author: Junior Posadas MD Service: (none) Author Type: Physician Filed: 11/15/10 1703 Note Time: 12/20/99 0001 Status: Signed Pneumatic System Conveyor Operator: Junior Posadas MD (Physician) IMPRESSION: No dictation required. Upper respiratory infection. SUBJECTIVE: See URI shingle. OBJECTIVE: N/A ASSESSMENT: Upper respiratory infection. PLAN: Fluids, rest, Tylenol. Follow up if symptoms not improving in five to six days, sooner if worse or any new symptoms. DSR:[id number] C: DOCUMENT: [id number] Y LEVEL AUTOMOTIVE TECHNICIAN Conversion, [facility] - 07/05/1999 12:01 AM CST Progress Notes signed by at 05/27/02 1637 Author: [facility] Conversion Service: (none) Author Type: (none) Filed: 11/15/10 1424 Note Time: 07/05/99 0001 Status: Signed Pneumatic System Conveyor Operator: [facility] Conversion IMPRESSION: No dictation required. Pharyngitis, upper respiratory infection. SUBJECTIVE: See URI shingle. OBJECTIVE: N/A ASSESSMENT: Pharyngitis, upper respiratory infection. PLAN: Symptomatic care. LAG:[id number] C: DOCUMENT: [id number] SCHEDULED RESOURCE: [facility] Y LEVEL AUTOMOTIVE TECHNICIAN Conversion, [facility] - 03/28/1999 12:01 AM CDT Phone Note signed by at 03/28/99 1029 Author: [facility] Conversion Service: (none) Author Type: (none) Filed: 11/15/10 1243 Note Time: 03/28/99 0001 Status: Signed Pneumatic System Conveyor Operator: Trung Conversion IMPRESSION: Re: Tagamet Orders.. TO: GENET BOND FROM: ARABELLA MCNALLY LPN [phone] * PROVIDER MESSAGE: ROUTINE * 03/28/1999 10:29AM * *WITHIN 4 HOURS * MESSAGE: Pharmacist is requesting * HOME PHONE: [phone] * call from a Provider regarding * WORK PHONE: [phone] * the Tagamet Order written by T. * CONTACT PHONE: [phone] * Cal on 03/24/99: Order is * Pharmacist. * written for Tagamet 600mg po * PHARMACY: [phone] * BID. But Tagamet only comes * [facility]-[place] * in 300mg , 400mg , or 800mg. Please Advise. SUBJECTIVE: ALLERGIES/SENSITIVITIES... CURRENT MEDICATIONS... PERTINENT PAST HISTORY... WEIGHT: Not Available OMITTED ASKING ABOUT ; OMITTED ASKING ABOUT NURSING; ASSESSMENT: Re: Tagamet Orders.. PLAN: DISPOSITION: NO DISPOSITION GIVEN Call taken by ARABELLA MCNALLY LPN [phone] 03/28/1999 10:23 AM ADDENDUM: <> 03/28/1999 11:07AM by TRUDI VASQUEZ [phone]: NURSE FOLLOW UP NEEDED.Per Diana Bond NP: [...] <> 03/28/1999 12:01PM by AMPARO RICH LPN [phone]: ////Attention: Alonso Mccall @ 1V; The above message was sent to Gisella Bond in error. Pharmacy needs provider to clarify above rx. Patient was seen by provider on 03/24/99, see progress note in phone care. Alonso Sellers PA-C - 03/24/1999 12:01 AM CDT Progress Notes signed by Alonso Mccall PA-C at 06/26/99 2835 Author: Alonso Mccall PA-C Service: (none) Author Type: Physician Trench Digger Filed: 11/15/10 1240 Note Time: 03/24/99 0001 Status: Signed Pneumatic System Conveyor Operator: Alonso Mccall PA-C (Physician Trench Digger) IMPRESSION: Multiple plantar warts. SUBJECTIVE: This pleasant [...] Tagamet for the next three months. CC: [id number] C: DOCUMENT: [id number] Y LEVEL AUTOMOTIVE TECHNICIAN Alonso Mccall PA-C - 03/09/1999 12:01 AM CDT Progress Notes signed by Alonso Mccall PA-C at 06/26/99 2875 Author: Alonso Mccall PA-C Service: (none) Author Type: Physician Trench Digger Filed: 11/15/10 1225 Note Time: 03/09/99 0001 Status: Signed Pneumatic System Conveyor Operator: Alonso Mccall PA-C (Physician Trench Digger) IMPRESSION: Multiple plantar warts right foot. SUBJECTIVE: [...] or worsen or if any questions develop. [id number] C: DOCUMENT: [id number] Y LEVEL AUTOMOTIVE TECHNICIAN Alosno Mccall PA-C - 02/23/1999 12:01 AM CDT Progress Notes signed by Alonso Mccall PA-C at 06/26/992022 Author: Alonso Mccall PA-C Service: (none) Author Type: Physician Trench Digger Filed: 11/15/10 1211 Note Time: 02/23/99 0001 Status: Signed Pneumatic System Conveyor Operator: Alonso Mccall PA-C (Physician Trench Digger) IMPRESSION: Multiple warts. SUBJECTIVE: This pleasant 13-year-old [...] refreezing and treatment of the smaller warts. [id number] C: DOCUMENT: [id number] Alexandru Helton - 09/18/1997 12:01 AM CST Progress Notes signed by Alexandru Houser MD at 11/15/97 1432 Author: Alexandru Houser MD Service: (none) Author Type: Physician Filed: 11/15/10 0328 Note Time: 09/18/97 0001 Status: Signed Pneumatic System Conveyor Operator: Alexandru Houser MD (Physician) IMPRESSION: Upper lip [...] of oral, respiratory, or ocular symptoms. [facility] Y LEVEL AUTOMOTIVE TECHNICIAN Sandie Carrillo MD - 1996 12:01 AM CST Progress Notes signed by Sandie Carrillo MD at 05/27/02 1637 Author: Sandie Carrillo MD Service: (none) Author Type: Physician Filed: 11/14/10 2153 Note Time: 07/21/96 0001 Status: Signed Pneumatic System Conveyor Operator: Sandie Carrillo MD (Physician) IMPRESSION: No dictation required. Pharyngitis. SUBJECTIVE: N/A OBJECTIVE: N/A ASSESSMENT: N/A PLAN: Treatment: Pending strep screen. timbo Y LEVEL AUTOMOTIVE TECHNICIAN documented in this encounter Plan of [...] 11:37 AM Results for this ANTIGEN TEST ENTRY LEVEL AUTOMOTIVE TECHNICIAN procedure are i n the results section. BETA STREP FOLLOWUP Routine 07/05/1999 11:37 AM R esults for this ENTRY LEVEL AUTOMOTIVE TECHNICIAN procedure are i n the results section. BETA STREP RESP CULT Routine 09/15/1997 4:11 PM R esults for this ENTRY LEVEL AUTOMOTIVE TECHNICIAN procedure are i n the results [...] TECH-ID : [id number] TRANS-ID: EDR Kori Alicia ENTRY REP, CERTIFIED VETERINARY TECHNICIAN RAD GD Strep Group A Antigen Test (12/20/1999 5:43 PM CDT) Analysis Performed At Patho logist Time Signature Strep Group A Negative Negative HP CONVERSION Antigen Test Comment: Culture to follow. Specimen (Source) Anatomical Collection Method Collection Time Re ceived Time Location / / Volume Laterality 12/20/1999 5:43 PM CDT Junior Posadas MD LAB_1 Performing Organization Address [facility] Code Phon e Number HP CONVERSION Beta Strep Followup (12/20/1999 5:43 PM CDT) athologist Signature Strep Screen SEE TEXT HP CONVERSION Comment: Patient: LEODAN KIRKLAND Rapid Strep Follow up Culture @ ? Collected: ??[id number] Source: Throat ?Processed: ??[id number] ??[id number] ? 1V Final Report ------ ?[id number] ??[id number] No beta hemolytic Strep group A isolated . @ = Rapid F/U Cult Performed at [address] [place], [place] Specimen (Source) Anatomical Collection Method Collection Time Re ceived Time Location / / Volume Laterality 12/20/1999 5:43 PM CDT Junior Psoadas MD LAB_1 Performing Organization Address City/State/ZIP Code Phon e Number HP CONVERSION Strep Group A Antigen Test (07/05/1999 11:37 AM ENTRY LEVEL AUTOMOTIVE TECHNICIAN) Analysis Performed At Patho logist Time Signature Strep Group A Negative Negative HP CONVERSION Antigen Test Comment: Culture to follow. Specimen (Source) Anatomical Collection Method Collection Time Re ceived Time Location / / Volume Laterality 07/05/1999 11:37 AM ENTRY LEVEL AUTOMOTIVE TECHNICIAN Kimber Villar MD LAB_1 Performing Organization Address City/[facility]/ZIP Code Phon e Number HP CONVERSION Beta Strep Followup (07/05/1999 11:37 AM ENTRY LEVEL AUTOMOTIVE TECHNICIAN) P athologist Signature Strep Screen SEE TEXT HP CONVERSION Comment: Patient: LEODAN KIRKLAND Rapid Strep Follow up Culture @ ? Collected: ??[id number] ??[id number] Source: Throat ?Processed: ??[id number] ??1154 ? 1V Final Report ------ ?[id number] ??1116 No beta hemolytic Strep group A isolated . @ = Rapid F/U Cult Performed at ??[address] [place], [place] ?[address] Specimen (Source) Anatomical Collection Method Collection Time Re ceived Time Location / / Volume Laterality 07/05/1999 11:37 AM ENTRY LEVEL AUTOMOTIVE TECHNICIAN Kimber Villar MD LAB_1 Performing Organization Address City/[facility]/ZIP Code Phon e Number HP CONVERSION (ABNORMAL) Beta Strep Resp Cult (09/15/1997 4:11 PM ENTRY LEVEL AUTOMOTIVE TECHNICIAN) Analysis Performed At [facility] Time Signature Strep Screen SEE TEXT HP CONVERSION (A) Comment: Patient: LEODAN KIRKLAND Culture Strep Screen, Throat @ ?Collected: ??[id number] ??[id number] Source: Throat ?Processed: ??[id number] ??[id number] ? IV Final Report ------ ?[id number] ??[id number] Beta Strep Group A Present. ICSI Pharyngitis guideline recommends Penicillin V potassium (Pen VK) in nonal lergic patients. If < 50 lbs, 250 mg PenVK BID for 10 day s. >=50 lbs, 500 mg PenVK BID for 10 days. @ = Strep Screen Performed at ??[address] [facility] [place] [place], [place] ?[address] Specimen (Source) Anatomical Collection Method Collection Time Re ceived Time Location / / Volume Laterality 09/15/1997 4:11 PM ENTRY LEVEL AUTOMOTIVE TECHNICIAN Jacky Paredes MD LAB_1 Performing Organization Address City/[facility] Code Phon e Number HP CONVERSION documented in this encounter Visit Diagnoses Not on filedocumented in this encounter Care Teams Pharmacy Stock Clerk Relationship Specialty Start Date End Date Leela Ruano MD PCP - General 10/31/10 [address] [address] [place] [address] documented as of this encounter
[2022-03-09 15:54] LABS: Hematocrit 38.2 % (33.0-51.0); Hemoglobin* 12.2 gm/dL (12.0-16.0); Mean Corpuscular HGB Conc 32 gm/dL (32-36); Mean Corpuscular Hemoglobin 27 pg (26-34); Mean Corpuscular Volume 83 fL (80-100); Platelet Count* 240 K/uL (140-440); White Blood Count* 7.91 K/uL (4.50-11.00)
[2022-03-09 15:57] LABS: Slide Review Reflex No
[2022-03-09 16:14] LABS: Alanine Aminotransferase* 12 U/L (4-35); Aspartate Amino Transferase* 28 U/L (12-35)
[2022-03-09] MEDS: BETAMETHASONE SOD PHOS/ACETATE 6 MG/ML ML 12 MG IM (17:17)
[2022-03-09 17:29] LABS: Total Protein Urine < 5 mg/dL
--- NOTE | 2022-03-09 18:35 | PC.OBNST ---
NST Note NST Note Start: 03/09/22 15:08 Freq: ONCE Status: Active Protocol: Document 03/09/22 18:33 CUDDYH (Rec: 03/09/22 18:35 CUDDYH [id number]) NST Note 2 Para (# of births) 1 EDC 04/01/22 High Risk Factors High Blood Pressure - Gestational Patient Presented with Complaint(s) of Other Reactive Yes Appropriate for Gestational Age Yes RN Lauren Rodriguez RN Date 03/09/22 Reactive Yes Appropriate for Gestational Age Yes SARAH Osman RN Date 03/09/22 OB NST charge Yes Complete NST Note via Write Note Yes The provider's electronic signature indicates the NST is reactive/appropriate for gestational age. *Note to provider: If an addendum is required, open the patient's chart and click on the note under the Nurse/Allied Health tab.
--- NOTE | 2022-03-09 18:45 | P.OBLDTN_ITS ---
OB - Triage/Final Diagnosis Visit Information Time Seen by Provider: 17:30 Date Seen: 03/09/22 Date of evaluation: 03/09/22 Narrative: Gestational age: 35 weeks 5/7 days OB PROBLEM LIST: Blood type: A positive G2, P1001 : Martin. Daughter: Charleen. Baby: Girl 1. LOW TSH (<0.015) at first OB. Normal T4. Thyroid ultrasound ordered. Normal thyroid ultrasound. *10/12/21 TSH 0.082, fT4 0.83. Endocrinology referral entered. *11/22/21 TSH 0.265, fT4 0.93 12/11/2021: Patient reported homeowner association manager wanted to repeat TSH and free T4: TSH 0.333, fT4:0.94 (both normal) 2. H/o delivery due to arrest of descent and LGA. Planning repeat c- section and tubal ligation 3. POSSIBLE h/o gestational HTN. States she was induced d/t elevated BP at 40 1/7 weeks. Per records: induced due to gestational diabetes, elevated blood pressure, and suspected macrosomia. No definitive diagnoses of gestational HTN or preE noted in records. ---Baby ASA. gestational hypertension diagnosed on 03/09/22 at 36 weeks days gestation. betamethasone given on 03/09/2022 and 03/10/2022 RLTCS and Bilateral salpingectomy rescheduled to 03/11/2022 at 8:30Am: 37w0d Labs 03/09/22: hgb 12.2, plts 240K, AST 28, ALT 12. Urine P/C: 0.00 4. H/o diet-controlled GDM. Recommended early 1hr gct at 20 weeks: 100 --01/10/22 28wk 1hr GTT: 183 -- 3Hr GTT: Fast 95, 1hr 183 (H), 2hr 150, 3hr 114. NO GDM. 5. Anxiety and depression. Started on zoloft at first OB. Counseling referral placed. Had side effects with the sertraline. 12/11/2021: Citalopram 10 mg initiated, increased to 20mg daily on 01/10/22 6. N+V: rx for zofran 7. Advanced Maternal Age. Recommended level 2 u/s: normal Maternity T21: Negative 8. Elevated BP at 36 4/7: 122/90 and 132/96. Asymptomatic. pre E labs: plt 257, AST 26, ALT 9, P/C ration0.00, Pro <5 Flu: completed Covid: completed; NEEDS booster TDAP: 01/22/22 OB ADMISSION HISTORY AND PHYSICAL HPI: Cassidy is a 36-year-old 2 para 1 who presented to the Center on 03/09/2022 after having mildly elevated blood pressure readings in the clinic on 03/08/2022: 132/96. Preeclampsia labs were normal yesterday. She was taking her blood pressure at home today and had multiple measurements of 140/90s. Was recommended that she present to the center for serial blood pressure measurements and preeclampsia labs. She was diagnosed with gestational hypertension today. She will be changing her from 03/27/22 to 03/11/22. Anesthesia for scheduled C-sections: Spinal. Anesthesia for most unscheduled C-sections: Epidural. Anesthesia for emergency : General endotracheal. Risks associated with include: Approximately 1% chance of hemorrhage during that would require transfusion of blood products, 2-5% chance of infection: She will receive IV Ancef prior to skin incision to prevent infection, chance of injury to organs that are adjacent to the uterus such as bladder, intestines, blood vessels, nerves, ureters 1/500. Chance of injury to the infant less than 1/13273. Typically women stay in the hospital 2- 3 nights after a . activity restrictions: No lifting greater than 25 lb for 6 weeks, nothing vaginally such as intercourse or tampons for 6 weeks, no high impact/strenuous/core exercises for 6 weeks. No driving well taking narcotic pain medication: Approximately 2 weeks. Walking and walking up and down stairs are safe and she can do is much walking as she feels up to doing at any time . She also has undesired fertility and after discussion of tubal ligation verses bilateral salpingectomy she prefers bilateral salpingectomy. Consent form reviewed and signed for repeat low-transverse section and bilateral salpingectomy. GBS culture was collected yesterday on 03/08/2022. Preeclampsia labs 03/09/2022: Hemoglobin 12.2, platelets 240 K, AST 20, ALT 12, urine P/C: 0.00. No creatinine or BUN ordered. Patient's care began at 9 and 1/7 weeks gestation. She is dated by a first-trimester ultrasound. EDC is 04/01/2022. She has had routine visits since that time. Total visits so far: [] ALLERGIES: Penicillin: Reaction swollen lips and difficulty breathing MEDICATIONS: See EMR OBSTETRIC HISTORY: G 2 P 1. 0 Vaginal deliveries, 1 C-sections, 0 miscarriages, and 0 abortions. One living child Delivery history: 1. Date: 08/17/2017. Weeks of gestation: 40 weeks 1 day. Length of labor: 12 hr. weight: 9 lb 6 oz. Sex: Female, Charleen. Type of delivery: . Type of anesthesia: Epidural. [facility] delivery: [facility]. Pre-term labor: Denies. Complications: Diet-controlled gestational diabetes, induced at 40 weeks 1 day due to elevated blood pressure according to patient's report. GYNECOLOGIC HISTORY: LMP 07/04/2021. She menstruates every 28-32 days for 5 days. History of sexually transmitted infections: No. History of PID: No History of MRSA: No Last pap smear 2020. This was normal per patient report. Next due 2023. MEDICAL HISTORY: 1. Anxiety and depression 2. Migraines 3. AMA 4. H/O gestational diabetes in first . 5. Gestational hypertension SURGICAL HISTORY: 1. 08/17/2017 Low-transverse 2. 03/06/22: Tooth extraction SOCIAL HISTORY: Relationship status: , Jovi. 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 Blood transfusion is acceptable if needed. Tobacco prior to : Yes: 10 cigs/day Current Tobacco use: No: quit w/ (+) test E-cigs: No Prepregnancy Alcohol: Yes, 0-1 servings/day Current alcohol: no Illicit or recreational drug use: No Dietary Restrictions: None She feels safe at home. She denies abuse. FAMILY HISTORY: No family history of: defects, stillbirth, multiple losses, inherited or genetic abnormalities or developmental delay. 13 POINT COMPREHENSIVE REVIEW OF SYSTEMS: negative other than as dictated above. EXAM: VITAL SIGNS: Elevated blood pressures: Range 119/84 - 154/96. She is afebrile. GENERAL: She is alert and oriented times three in no acute distress. HEART: Regular rate and rhythm. LUNGS: Clear to auscultation bilaterally. ABDOMEN: Soft, nontender, and gravid with positive bowel sounds throughout. HEART TONES: Reactive NST. Baseline: PRESENTATION: Vertex by Oskar's maneuvers. SVE: Deferred EXTREMITIES: Without cyanosis, or clubbing. Plus one bilateral lower extremity edema to the ankle. No varicosities are seen. NEUROLOGIC: Normal DTRs at bilateral patella: 2+/2 and equal without clonus. ASSESSMENT: 36-year-old 2 para 1 at 36 weeks 5 days gestation newly diagnosed gestational hypertension PLAN: 1. Consent form reviewed and signed for repeat low-transverse section and bilateral salpingectomy. Scheduled on 03/11/2022 at 8:[address] Camacho. 2. Betamethasone#1 Given today at approximately 5:00 p.m.#2To be given tomorrow 03/10/2022 at approximately 5:00 p.m. 3. Normal preeclampsia labs reviewed with the patient. 4. Reviewed signs and symptoms of severe preeclampsia. 5. Arrive at the center at 6:30 a.m. on 03/11/2022 This is the patient's admission H&P. Evaluation Laboratory results: Laboratory Tests 03/09/22 03/09/22 03/09/22 Range/Units 16:30 15:50 15:50 WBC 7.91 (4.50-11.00) K/uL RBC 4.60 (4.00-5.20) m/uL Hgb 12.2 (12.0-16.0) gm/dL Hct 38.2 (33.0-51.0) % MCV 83 (80-100) fL MCH 27 (26-34) pg MCHC 32 (32-36) gm/dL Plt Count 240 (140-440) K/uL AST 28 (12-35) U/L ALT 12 (4-35) U/L Urine Creatinine 661.0 mg/dL Protein/Creatinin Ratio 0.00 (0-0.19) Urine Total Protein < 5 mg/dL Vital signs: Vital Signs - 24 hr 03/09/22 15:26 03/09/22 15:21 03/09/22 15:36 Temperature 99 F Pulse Rate 99 100 94 Respiratory Rate 16 Blood Pressure 130/93 H 130/93 H 119/94 H Pulse Oximetry 98 03/09/22 15:51 03/09/22 16:08 03/09/22 16:21 Temperature Pulse Rate 96 88 98 Respiratory Rate Blood Pressure 129/92 H 122/88 131/93 H Pulse Oximetry 03/09/22 16:43 03/09/22 16:58 03/09/22 17:09 Temperature Pulse Rate 93 89 75 Respiratory Rate Blood Pressure 154/93 H 119/85 128/96 H Pulse Oximetry Fetus (Single) Retirement Variability: Moderate (11-25) Monitor Accelerations: Present Monitor Decelerations: None Final Diagnosis (1) Gestational hypertension: Status: Acute Problem details: 1. Admission History and physical completed today. 2. Betamethasone given today 03/09/2022 with 2nd dose tomorrow 03/10/2022 At approximately 5:00 p.m. 3. Repeat low-transverse and bilateral salpingectomy scheduled 8:30 a.m. on 03/11/2022. Consent form reviewed and signed today.
== END 2022-03-09 18:25 | disposition home or self-care (01) ==
LOC: OB OUT 14:58 → OB 15:03
PROVIDERS: Visit Provider Obstetrics & Gynecology
DX: Z34.93 Encounter for supervision of normal pregnancy, unspecified, third trimester (principal)
CPT/HCPCS: 36415; 59025; 82570; 84156; 84450; 84460; 85027; 99213; J0702

== ENCOUNTER 2022-03-10 16:58 | Outpatient (CLI) | payer BC, OTHER, SELFPAY ==
--- OUTSIDE RECORDS SUMMARY | 2022-03-10 17:01 | XMS_ITS | Encounter Summary ---
:1985 Author Organization [place] Address [address] [facility] [place] [address] Care Team Providers Name Role Phone Leela Ruano MD Primary Care Provider Reason for Visit Auth/Cert Specialty Diagnoses / Procedures Referred By Contact Refer red To Contact station air traffic control specialist Diagnoses Rh Labor And Delivery Procedures [facility] [address], [place] [address] Phone: Fax: Referral ID Status Reason Start Date Expiration Date Visits Requ ested Visits Authorized [id number] 1 1 Encounter Details Date Type Department Care Team Description 08/17/2017 Anesthesia Event [facility] Jax Winters [facility]lif[facility] health MD Martin [address] [place] [address] ANESTHESIA [id number] [place], [place] [address] (Wo rk) Anesthesia Record [...] 0119 by Catheter intact Taran Marie APRN SUPPLY CHAIN MANAGER Peripheral IV 08/16/17; 1145; 18 G; 08/16/17 [...] at Date Recorded Female 08/03/2021 2:35 PM GRADE RECORDER documented as of this encounter OR Notes [...] Winters MD August 17, 2017 1:33 AM E RECORDER Anesthesia Preprocedure Evaluation - Jax Winters MD [...] alternatives discussed with: Patient and Spouse.. . E RECORDER documented in this encounter Miscellaneous Notes Anesthesia [...] APRN CRNA August 17, 2017 1:30 AM E RECORDER documented in this encounter Plan of Treatment Not on filedocumented as of this encounter Visit Diagnoses Not on filedocumented in this encounter Administered Medications Inactive Administered Medications - up to 3 most recent administrations Medication Order MAR Action Action Date Dose Rate Site azithromycin (ZITHROMAX) 500 mg New Bag 08/17/2017 12:36 AM GRADE RECORDER 50 0 mg in NaCl 0.9 % 250 mL intermittent infusion EDIN, 500 mg, Intravenous, PRE-OP/PRE-PROCEDURE, Starting on 08/17/17 at 0031, For 1 dose, Indications: Perioperative Pharmacoprophylaxis, Pre-procedure ceFAZolin (ANCEF) 1 g vial to attach to NS 100 Given 0 08/17/2017 12:27 AM GRADE RECORDER 2 g ml bag for ADULT or [...] dexamethasone (DECADRON) injection Given 08/17/2017 12:33 AM GRADE RECORDER 4 mg PRN, Administer over 1 Minutes, Starting on 08/17/17 at 0033, Anesthesia Intra-op lactated ringers infusion New Bag 08/17/2017 12:26 AM GRADE RECORDER at 125 mL/hr, Intravenous, CONTINUOUS, Pre-procedure, Starting on 08/17/17 at 0030, Until 08/17/17 at 0319 lidocaine 2%-EPINEPHrine 1:200,000 injec tion Given 08/17/2017 12:29 AM GRADE RECORDER 15 mLs EPIDURAL, PRN, Starting on 08/17/17 at 0029, Anesthesia Intra-op methylergonovine (METHERGINE) injection 200 Given 07/30 12:57 AM GRADE RECORDER 200 mcg mcg 200 mcg, Intramuscular, ONCE PRN, ONLY for uterine atony with significant bleeding POST-DELIVERY, Starting on Sat08/16/17 at 1207, For 1 dose, Notify provider IF uterine atony and clarify with provider medication preference. Do NOT give IF Blood Pressure greater than 140/90, preeclampsia, or chronic hypertension. midazolam (VERSED) injection Given 08/17/2017 12:45 AM GRADE RECORDER 1 mg Administer over 2 Minutes, PRN, anxiety, Starting on 08/17/17 at 0045, Anesthesia Intra-op morphine (PF) (ASTRAMORPH /DURAMORPH) injection Given 08/17/2017 1:02 AM GRADE RECORDER 4 mg 4 mg 4 mg, Intrathecal, ONCE, Administer over 4-5 Minutes, On 08/17/17 at 0100, For 1 dose, Epidural, not ITN For ordered doses up to 15 mg give IV Push undiluted over 4-5 minutes. ondansetron (ZOFRAN) injection 4 mg Given 08/17/2017 12:33 AM GRADE RECORDER 4 mg 4 mg, Intravenous, EVERY 6 HOURS PRN, nausea, vomiting, Administer over 2-5 Minutes, Starting on 08/16/17 at 1207, If nausea not resolved in 15 minutes, notify provider before proceeding to prochlorperazine (COMPAZINE) [if ordered]. Irritant. For ordered doses up to 4 mg, give IV Push undiluted over 2-5 minutes. Given 08/16/2017 11:44 PM GRADE RECORDER 4 mg oxytocin (PITOCIN) 30 units in 500 mL 0.9% Given 08/17/2017 1:21 AM GRADE RECORDER 397 mLs NaCl infusion 100-340 mL/hr, Intravenous, [...] per nurse discretion. Given 08/17/2017 12:52 AM GRADE RECORDER 3 mLs documented in this encounter Care Teams Vacuum Metalizer Operator Relationship Specialty Start Date End Date Leela Ruano MD PCP - General Family Practice 08/06/17 [facility] [id number] [place] [id number] documented as of this encounter
--- OUTSIDE RECORDS SUMMARY | 2022-03-10 17:01 | XMS_ITS | Encounter Summary ---
:1985 Author Organization [place] Address [facility] [place] [address] Care Team Providers Name Role Phone Leela Ruano MD Primary Care Provider Reason for Visit Auth/Cert Specialty Diagnoses / Procedures Referred By Contact Refer red To Contact assistant press operator offset Diagnoses Rh Labor And Delivery Procedures [facility] [address] [place], [place] [address] Phone: Fax: Referral ID Status Reason Start Date Expiration Date Visits Requ ested Visits Authorized [id number] 1 1 Encounter Details Date Type Department Care Team Description 08/16/2017 Anesthesia Event [facility] Miller Levine, Birthplace [address] [place], [place] ANESTHESIA [id number] [facility] [phone] [address] [place], [place] [address] (Wo rk) Anesthesia Record [...] 0119 by Catheter intact Taran Marie APRN BUS DRIVER Peripheral IV 08/16/17; 1145; 18 G; 08/16/17 [...] at Date Recorded Female 08/03/2021 2:35 PM JUNIOR SYSTEMS ENGINEER documented as of this encounter OR Notes [...] Walls MD August 17, 2017 7:39 AM OR SYSTEMS ENGINEER Anesthesia Procedure Notes - Juan Pablo Levine MD - 08/16/2017 4:05 PM JUNIOR SYSTEMS ENGINEER Associated Order(s): ANE EPIDURAL BLOCK Peripheral nerve/Neuraxial [...] signs of intravascular, subdural or intrathecal injection. OR SYSTEMS ENGINEER Anesthesia Preprocedure Evaluation - Juan Pablo Levine [...] benefits and alternatives discussed with: Patient.. . OR SYSTEMS ENGINEER documented in this encounter Miscellaneous Notes Addendum Note - Shoaib Walls MD - 08/17/2017 7:39 AM CST Addendum created 08/17/17 0739 by Shoaib Walls MD Sign clinical note OR SYSTEMS ENGINEER documented in this encounter Plan of Treatment Not on filedocumented as of this encounter Procedures Procedure Name Priority Date/Time Associated Diagnosis Comme nts ANE EPIDURAL BLOCK Routine 08/16/2017 4:06 PM JUNIOR SYSTEMS ENGINEER Procedure Note - Dwight Levine MD - [...] 0.25% PF (epidural) Given 08/16/2017 3:56 PM JUNIOR SYSTEMS ENGINEER 10 mLs EPIDURAL, PRN, Starting on Sat08/16/17 at 1556, Anesthesia Intra-op documented in this encounter Care Teams Stitcher Special Machine Relationship Specialty Start Date End Date Leela Ruano MD PCP - General [facility] Practice 08/06/17 [facility]3] [id number] [place] [id number] documented as of this encounter
--- OUTSIDE RECORDS SUMMARY | 2022-03-10 17:01 | XMS_ITS | Clinical Summary ---
:1985 Author Organization [place] Address [address] [place] [id number] Care Team Providers Name Role Phone Leela [...] at Date Recorded Female 08/03/2021 2:35 PM WET POUR SUPERVISOR Last Filed Vital Signs Vital Sign Reading Time Taken Comments Blood Pressure 137/90 08/20/2017 8:34 AM WET POUR SUPERVISOR Pulse - - Temperature 36.5 ??C (97.7 ??F) 08/20/2017 8:34 AM WET POUR SUPERVISOR Respiratory Rate 18 08/20/2017 8:34 AM WET POUR SUPERVISOR Oxygen Saturation 96% 08/17/2017 8:20 AM WET POUR SUPERVISOR Inhaled Oxygen Concentration - - Weight 83.5 kg (184 lb) 08/16/2017 11:00 AM WET POUR SUPERVISOR Height 162.6 cm (5' 4) 08/16/2017 11:00 AM WET POUR SUPERVISOR Body Mass Index 31.58 08/16/2017 11:00 AM WET POUR SUPERVISOR Plan of Treatment Health Maintenance Due Date [...] comple te this topic Years) Care Teams Greenskeeper Relationship Specialty Start Date End Date Leela Ruano MD PCP - General Family Practice 08/06/17 [facility] [address] [place], [place] [id number]
--- OUTSIDE RECORDS SUMMARY | 2022-03-10 17:01 | XMS_ITS | Encounter Summary ---
:1985 Author Organization [place] Address [address] [place] [address] Care Team Providers Name Role Phone Leela Ruano MD Primary Care Provider Reason for Visit Reason Comments Induction Of Labor Auth/Cert Specialty Diagnoses / Procedures Referred By Contact Refer red To Contact church organist Diagnoses Rh Labor And Delivery Procedures LABOR AND DELIVERY [address] [place], [place] [address] Phone: Fax: Referral ID Status Reason Start Date Expiration Date Visits Requ ested Visits Authorized [id number] 1 1 Encounter Details Date Type Department Care Team Description 08/17/2017 Surgery [facility] Elayne Zacarias section Birthplace MD Rahel [address] OBSTETRICS & [place] [address] SPECIALISTS [phone] [facility] [address] [place], [place] [address] (Wo rk) Surgery Details Date/Time Status Location [...] at Date Recorded Female 08/03/2021 2:35 PM SMALL [employer]Y [employer]ATE ASSEMBLER documented as of this encounter Last Filed Vital Signs Vital Sign Reading Time Taken Comments Blood Pressure 120/80 08/17/2017 2:20 AM [employer]ATE ASSEMBLER Pulse - - Temperature 37.2 ??C (99 ??F) 08/17/2017 1:34 AM [employer]ATE [employer]ER Respiratory Rate 18 08/16/2017 11:45 PM [employer]ATE ASSEMBLER Oxygen Saturation 94% 08/17/2017 2:30 AM [employer]ATE ASSEMBLER Inhaled Oxygen Concentration - - Weight 83.5 kg (184 lb) 08/16/2017 11:00 AM [employer]ATE ASSEMBLER Height 162.6 cm (5' 4) 08/16/2017 11:00 AM [employer]ATE [employer]BLER Body Mass Index 31.58 08/16/2017 11:00 AM [employer]ATE ASSEMBLER documented in this encounter Discharge Summaries Lia Zacarias MD - 08/16/2017 10:52 AM CST Post-Operative Note and Discharge Summary Leodan Milligan Date of : 1985 Age: [age] year old Date of Admission: 08/16/2017 Date of Discharge: 08/20/2017 1:00 PM Admitting Physician: Lia Zacarias MD Discharge Physician: iLa Zacarias MD Discharging Service: Obstetrics and Gynecology Home clinic: [facility] Admission Diagnoses: Indication for care in [...] provider in 6 weeks Lia Zacarias MD L BATTERY PLATE ASSEMBLER documented in this encounter Discharge Instructions Discharge InstructionsSoco HutchisonALVARO - 08/20/2017 10:38 AM CST Postop Instructions [phone] [facility]-[phone] Activity ?? Do not lift more than [...] questions or concerns after you return home. L [employer] PLATE ASSEMBLER documented in this encounter Medications at Time [...] Discharge home prec reviewed RTC 6 weeks L BATTERY PLATE ASSEMBLER Marcie Sun PA-C - 08/19/2017 8:48 AM CST # 2 Post op . 40 2/7 weeks. Gest Diabetic. LGA. Pt states doing well. Nursing. Pain well controlled. Afebrile VSS. Hgb 10.5. Fundus firm light flow. Incision dry and intact. Passing flatus. Voiding w/o problems. Ext: w trace edema no pain. Normal postop course. Plan routine postop care. Plan to discharge to home 08/20. L [employer]ATE ASSEMBLER Associated attestation - Asuncion Barnes MD - 08/19/2017 11:09 AM SMALL BATTERY [employer]ATE ASSEMBLER Physician Attestation I agree with the information in this note. Memo Alex MD - 08/18/2017 8:47 AM CST Afebrile. Abdomen is soft nontender. Dressing removed, incision is clean and dry. Tolerating diet, good pain control. Afebrile for 24 hours. Imp normal post op course. Plan Discontinue IV antibiotics. L BATTERY PLATE ASSEMBLER Memo Rosado MD - 08/17/2017 8:26 AM CST Mild elevation of temperature to 101.2 after her surgery, now on clindamycin and gent. No complaintsre incision. Tolerating diet, good pain control. Imp Post op c section Plan Continue antibiotics for at least 24 hours, otherwise routine post operative care. L [employer]Y PLATE ASSEMBLER Lia Zacarias MD - 08/17/2017 12:18 AM [...] primary section. Consent signed. Lia Zacarias MD L BATTERY PLATE ASSEMBLER Marnie Villar MD - 08/16/2017 12:33 PM [...] labs pending. 3. GBS negative. Marnie Villar L BATTERY PLATE ASSEMBLER documented in this encounter H&P Notes Lia [...] FHT--175, moderate LTV, no accels, no decels [place]---ctx every 1-3 min Data: All laboratory data reviewed Lia Zacarias MD L BATTERY PLATE ASSEMBLER Marnie Villar MD - 08/16/2017 12:33 PM CST No significant change in general health status based on examination of the patient, review of Nursing Admission Database and record. EFW: 8lb 8oz Marnie Villar L BATTERY PLATE ASSEMBLER documented in this encounter Consult Notes Luther Dale LSW - 08/19/2017 11:52 AM CST D) SW responding to automatic referral, met with Leodan and Jovi who are and reside in [place]. Their baby Charleen is their first and is in the NICU for respiratory distress. They are prepared for her at home and are not on WIC. Leodan has 6 weeks off work and Jovi has one week off. Leodan's mother who lives in [place] will live with the couple for awhile [...] family while Charleen is in the NICU. L BAT[employer]Y PLATE ASSEMBLER documented in this encounter Miscellaneous Notes Note [...] follow up phone call within a week. L [employer]Y PLATE ASSEMBLER Plan of Care - Mary Jane Welsh [...] present. Plan: Anticipate discharge home with infant. L BATTERY PLATE ASSEMBLER Plan of Care - Bhavesh Moya RN [...] present and supportive, bonding well with . L BATTERY PLATE ASSEMBLER Plan of Care - Yane Holden RN [...] and very attentive to pt and . L BATTERY PLATE ASSEMBLER Note - Soco Santoro RN - 08/19/2017 [...] pump. Will continue to follow and support. L BATTERY PLATE ASSEMBLER Plan of Care - Mary Jane Welsh RN - 08/19/2017 12:59 PM CST Problem: Patient Care Overview Goal: Plan of Care/Patient Progress Review Patient meeting expected goals this shift. Pain controlled with use of oral pain medications. Incision open to air, well-approximated. Up ad suzanne, ambulating to NICU to be with baby. L BATTERY PLATE ASSEMBLER Note - Soco Santoro RN - 08/19/2017 [...] shield. Will continue to follow and support. L BATTERY PLATE ASSEMBLER Plan of Care - Parris Medrano RN [...] sent EBM to NICU. Meeting expected goals. L BATTERY PLATE ASSEMBLER Plan of Care - Dania Vargas RN [...] Continue to monitor per pt care plan. L BATTERY PLATE ASSEMBLER Plan of Care - Lucia Pratt RN - 08/18/2017 1:27 PM CST Problem: Patient Care Overview Goal: Plan of Care/Patient Progress Review Outcome: Improving VSS. Antibiotics discontinued this morning per Dr. Rosado, IV removed. Pain well controlled with oral tylenol and ibuprofen. Pt in NICU frequently this shift with . Using breastpump. Will continue to monitor. L BATTERY PLATE ASSEMBLER Plan of Care - Parris Medrano RN [...] to increase milk supply. Meeting expected goals. L BATTERY PLATE ASSEMBLER Plan of Care - Dania Vargas RN [...] provided. Contnue to monitor per care plan. L BATTERY PLATE ASSEMBLER Plan of Care - Amanda Landin RN [...] been afebrile this shift. Support persons present. L BATTERY PLATE ASSEMBLER Provider Notification - Amanda Landin RN - 08/17/2017 8:20 AM CST 08/17/17 0820 Provider Notification Provider Name/Title Dr. Rosado Method of Notification At Bedside Dr. Rosado at bedside. Plan to take pandya out at lunch time and get pt up and moving. MD updated that pt is on IV Clindamycin and IV Gentamycin--temps improving. MD assessed pt--POC reviewed. All questions answered. L [employer]Y PLATE ASSEMBLER Provider Notification - Yaniar Pena RN - 08/17/2017 5:20 AM SMALL BATTERY PLATE ASSEMBLER 08/17/17 0520 Provider Notification Provider Name/Title Dr. [...] Gentamycin for 24 hours, then will re-evaluate. L BATTERY PLATE ASSEMBLER Plan of Care - Yanira Pena RN [...] Response: Patient tolerated transfer and is stable. L BATTERY PLATE ASSEMBLER Plan of Care - Yanira Pena RN - 08/17/2017 3:10 AM CST Went down to NICU with to see baby in NICU. L BATTERY PLATE ASSEMBLER Op Note - Lia Zacarias MD - [...] MD MT: LO Name: LEODAN MILLIGAN Account: [id number] : 1985 Procedure Date: 08/17/2017 Document: [id number] L BATTERY PLATE ASSEMBLER Brief Op Note - Lia Zacarias MD - 08/17/2017 1:29 AM SMALL BATTERY PLATE ASSEMBLER [facility] Brief Operative Note Pre-operative diagnosis: 32yo [...] for mild respiratory distress. Lia Zacarias MD L BATTERY PLATE ASSEMBLER Provider Notification - Yanira Pena RN - 08/17/2017 12:15 AM SMALL BATTERY PLATE ASSEMBLER 08/17/17 0015 Provider Notification Provider Name/Title Dr. Zacarias Method of Notification At Bedside MD talking with patient regarding possible need for C/S, possible risks and benefits. Will have consent ready to sign for patient in agreement. L BATTERY PLATE ASSEMBLER Provider Notification - Yanira Pena RN - 08/17/2017 12:00 AM SMALL BATTERY PLATE ASSEMBLER 08/17/17 0000 Provider Notification Provider Name/Title Dr. Zacarias Method of Notification At Bedside MD at bedside to evaluate pushing, FHTs. L BATTERY PLATE ASSEMBLER Provider Notification - Yanira Pena RN - 08/16/2017 11:45 PM SMALL BATTERY PLATE ASSEMBLER 08/16/17 2345 Provider Notification Provider Name/Title Dr. Zacarias Method of Notification Phone MD called in to evaluate FHT rate, pushing. L BATTERY PLATE ASSEMBLER Provider Notification - Yanira Pena RN - 08/16/2017 10:20 PM SMALL BATTERY PLATE ASSEMBLER 08/16/17 2220 Provider Notification Provider Name/Title Dr. [...] and to call when needed for delivery. L BATTERY PLATE ASSEMBLER Provider Notification - Katey Godwin RN - 08/16/2017 7:34 PM SMALL BATTERY PLATE ASSEMBLER 08/16/17 1932 Provider Notification Provider Name/Title Dr [...] will assume all cares at that time. L BATTERY PLATE ASSEMBLER Provider Notification - Katey Godwin RN - 08/16/2017 4:54 PM SMALL BATTERY PLATE ASSEMBLER 08/16/17 1645 Provider Notification Provider Name/Title Dr Villar Method of Notification Phone Request Evaluate - Remote Notification Reason Status Update;SVE (Pitocin running at 1 abimael-unit) L BATTERY PLATE ASSEMBLER Provider Notification - Katey Godwin RN - 08/16/2017 2:56 PM SMALL BATTERY PLATE ASSEMBLER 08/16/17 9006 Provider Notification Provider Name/Title Dr Villar Method of Notification Phone Request Evaluate - Remote Notification Reason SVE;Status Update MD updated of SVE no change. Pt now very uncomfortable, rates 6/10. Fentanyl given. IV flushing. OK for epidural at any time. Will continue to monitor and update as needed. L BATTERY PLATE ASSEMBLER Plan of Care - Katey Godwin RN - 08/16/2017 1:06 PM CST Patient off monitors to ambulate hallways. Instructed to notify nurse if patient notices any significant changes in condition. L BATTERY PLATE ASSEMBLER Provider Notification - Katey Godwin RN - 08/16/2017 12:26 PM SMALL BATTERY PLATE ASSEMBLER 08/16/17 1215 Provider Notification Provider Name/Title Dr Villar Method of Notification Phone Request Evaluate - Remote Notification Reason Patient Arrived;Status Update MD to come for AROM, intrapartum orders placed L BATTERY PLATE ASSEMBLER Provider Notification - Yanira Pena RN - 08/16/2017 8:30 AM SMALL BATTERY PLATE ASSEMBLER 08/16/172032 Provider Notification Provider Name/Title Dr. Zacarias Method of Notification Phone Request Evaluate - Remote Notification Reason Other (Comment) MD called to ask about a medication that she ordered with previous nurse. MD discontinued that Medication, and ordered po Prilosec 20 mg BID , start when patient's nausea after emesis feels better. Call MD with any questions or when needed. L BATTERY PLATE ASSEMBLER documented in this encounter Plan of Treatment Not on filedocumented as of this encounter Procedures Procedure Name Priority Date/Time Associated Comments Diagnosis HEMOGLOBIN Routine 08/18/2017 7:05 AM Results f or this SMALL BATTERY [employer]ATE ASSEMBLER procedure are i n the results section. GLUCOSE BY METER Routine 08/17/2017 6:35 AM Resul ts for this SMALL BATTERY [employer]ATE ASSEMBLER procedure are i n the results section. SECTION 08/17/2017 12:20 section AM SMALL BATTERY PLATE ASSEMBLER GLUCOSE BY METER Routine 08/16/2017 10:35 Results for this PM SMALL BATTERY PLATE ASSEMBLER procedure are i n the results section. GLUCOSE BY METER Routine 08/16/2017 8:37 PM Resul ts for this SMALL BATTERY PLATE ASSEMBLER procedure are i n the results section. GLUCOSE BY METER Routine 08/16/2017 6:28 PM Resul ts for this SMALL BATTERY PLATE ASSEMBLER procedure are i n the results section. PROTEIN RANDOM URINE STAT 08/16/2017 5:30 PM R esults for this SMALL BATTERY PLATE ASSEMBLER procedure are i n the results section. CREATININE URINE Routine 08/16/2017 5:30 PM Resul ts for this CALCULATION ONLY (LAB SMALL BATTERY PLATE ASSEMBLER proced ure are in ONLY) the results section. GLUCOSE BY METER Routine 08/16/2017 5:14 PM Resul ts for this SMALL BATTERY PLATE ASSEMBLER procedure are i n the results section. CBC WITH PLATELETS & STAT 08/16/2017 11:45 Res ults for this DIFFERENTIAL AM SMALL BATTERY PLATE ASSEMBLER procedure are i n the results section. URIC ACID STAT 08/16/2017 11:45 Results for this AM SMALL BATTERY PLATE ASSEMBLER procedure are i n the results section. AST STAT 08/16/2017 11:45 Results for this AM SMALL BATTERY PLATE ASSEMBLER procedure are i n the results section. ANTI TREPONEMA STAT 08/16/2017 11:45 Results f or this AM SMALL [employer]TERY PLATE ASSEMBLER procedure are i n the results section. ALT STAT 08/16/2017 11:45 Results for this AM SMALL BATTERY PLATE ASSEMBLER procedure are i n the results section. ABO/RH TYPE AND STAT 08/16/2017 11:45 Results for this SCREEN AM SMALL BATTERY PLATE ASSEMBLER procedure are i n the results section. BASIC METABOLIC PANEL STAT 08/16/2017 11:45 Re sults for this AM SMALL BATTERY PLATE ASSEMBLER procedure are i n the results [...] encounter Results (ABNORMAL) Hemoglobin (08/18/2017 7:05 AM SMALL BATTERY PLATE ASSEMBLER) P athologist Signature Hemoglobin 10.5 (L) 11.7 - 15.7 08/18/2017 [place] g/dL 7:56 AM [facility] Specimen Anatomical Collection Method Collection Time Receive d Time (Source) Location / / Volume Laterality Blood specimen 08/18/2017 7:05 AM 018 7:06 (specimen) SMALL BATTERY PLATE ASSEMBLER SMALL BATTERY PLATE ASSEMBLER Lia Zacarias MD LAB - BLOOD ORDERABLES Performing Organization Address City/State/ZIP Code Phon e Number M [facility] [address] [address] [facility] [address] [phone] (ABNORMAL) Glucose by meter (08/17/2017 6:35 AM SMALL BATTERY PLATE ASSEMBLER) P athologist Signature Glucose 114 (H) 70 - 99 08/17/2017 PO[facility]ARE mg/dL 6:40 AM SMALL BATTERY PLATE ASSEMBLER TEST, GLUCOSE Specimen Anatomical Collection Method Collection Time Receive d Time (Source) Location / / Volume Laterality 08/17/2017 6:35 AM 8 6:40 SMALL BATTERY PLATE ASSEMBLER AM SMALL BATTERY PLATE ASSEMBLER Lia Zacarias MD LAB - BEValensum POCT Performing Organization Address City/State/ZIP Code Phon e Number F[facility] POINT OF CARE TEST, GLUCOSE POINT OF CARE TEST, GLUCOSE Glucose by meter (08/16/2017 10:35 PM SMALL BATTERY PLATE ASSEMBLER) athologist Signature Glucose 70 70 - 99 08/17/2017 [facility] CARE mg/dL 1:15 AM SMALL BATTERY PLATE ASSEMBLER TEST, GLUCOSE Specimen Anatomical Collection Method Collection Time Receive d Time (Source) Location / / Volume Laterality 08/16/2017 10:35 08/17/2017 1:15 PM SMALL BAT[employer]Y PLATE ASSEMBLER AM SMALL BATTERY PLATE ASSEMBLER Marnie ALBARADO - JAMAAL POCT Performing Organization Address City/State/ZIP Code Phon e Number [facility] POINT OF CARE TEST, GLUCOSE POINT OF CARE TEST, GLUCOSE (ABNORMAL) Glucose by meter (08/16/2017 8:37 PM SMALL BATTERY PLATE ASSEMBLER) athologist Signature Glucose 62 (L) 70 - 99 08/16/2017 PO[facility] CARE mg/dL 8:40 PM SMALL BATTERY PLATE ASSEMBLER TEST, GLUCOSE Specimen Anatomical Collection Method Collection Time Receive d Time (Source) Location / / Volume Laterality 08/16/2017 8:37 PM 8 8:40 SMALL BATTERY PLATE ASSEMBLER PM SMALL BATTERY PLATE ASSEMBLER Marnie Villar MD LAB - JAMAAL POCT Performing Organization Address City/State/ZIP Code Phon e Number [facility] POINT OF CARE TEST, GLUCOSE POINT OF CARE TEST, GLUCOSE Glucose by meter (08/16/2017 6:28 PM SMALL BATTERY PLATE ASSEMBLER) athologist Signature Glucose 71 70 - 99 08/16/2017 POINT OF CARE mg/dL 6:30 PM SMALL BATTERY PLATE ASSEMBLER TEST, GLUCOSE Specimen Anatomical Collection Method Collection Time Receive d Time (Source) Location / / Volume Laterality 08/16/2017 6:28 PM 8 6:30 SMALL BATTERY PLATE ASSEMBLER PM SMALL BATTERY PLATE ASSEMBLER Marnie Villar MD LAB - BEAKER POCT Performing Organization Address City/[facility]/ZIP Code Phon e Number [facility] POINT OF CARE TEST, GLUCOSE POINT OF CARE TEST, GLUCOSE Creatinine urine calculation only (08/16/2017 5:30 PM SMALL BATTERY PLATE ASSEMBLER) athologist Signature Creatinine 142 mg/dL 08/16/2017 [place] Urine 6:[address] [facility] Specimen Anatomical Collection Method Collection Time Receive d Time (Source) Location / / Volume Laterality 08/16/2017 5:30 PM 8 6:10 SMALL BATTERY PLATE ASSEMBLER PM SMALL BATTERY PLATE ASSEMBLER Marnie Villar MD LAB - URINE ORDERABLES Performing Organization Address City/[facility]/ZIP Code Phon e Number M [facility] [address] [place] [address] [phone] [address] [place] [address] [place] [address], [place] [phone] (ABNORMAL) Protein random urine with Creat Ratio (08/16/2017 5:30 PM SMALL BATTERY PLATE ASSEMBLER) Analysis Performed At Patho logist Time Signature Protein Random 0.32 g/L 08/16/2017 [place] Urine 6:[address] [facility] Protein Total 0.22 (H) 0 - 0.2 08/16/2017 [place] Urine g/gr g/g Cr 6:36 PM [facility] Specimen Anatomical Collection Method Collection Time Receive d Time (Source) Location / / Volume Laterality Urine specimen URINE SPECIMEN 08/16/2017 5:30 PM 08/16 6:10 (specimen) OBTAINED BY CLEAN SMALL BATTERY PLATE ASSEMBLER PM SMALL BATTERY PLATE ASSEMBLER CATCH PROCEDURE / Unknown Marnie Villar MD LAB - URINE ORDERABLES Performing Organization Address City/[facility]/ZIP Code Phon e Number M [facility] [address] [place] [address] [phone] [address] [place] [address], [place] [phone] (ABNORMAL) Glucose by meter (08/16/2017 5:14 PM SMALL BATTERY PLATE ASSEMBLER) P athologist Signature Glucose 69 (L) 70 - 99 08/16/2017 POINT OF CARE mg/dL 5:21 PM SMALL BATTERY PLATE ASSEMBLER TEST, GLUCOSE Specimen Anatomical Collection Method Collection Time Receive d Time (Source) Location / / Volume Laterality 08/16/2017 5:14 PM 8 5:21 SMALL BATTERY PLATE ASSEMBLER PM SMALL BATTERY PLATE ASSEMBLER Marnie Villar MD LAB - BEAKER POCT Performing Organization Address City/[facility]/ZIP Code Phon e Number [facility] POINT OF CARE TEST, GLUCOSE POINT OF CARE TEST, GLUCOSE Uric acid (08/16/2017 11:45 AM SMALL BATTERY PLATE ASSEMBLER) athologist Signature Uric Acid 5.8 2.6 - 6.0 08/16/2017 [facility] mg/dL 12:40 PM [facility] Specimen Anatomical Collection Method Collection Time Receive d Time (Source) Location / / Volume Laterality Blood specimen 08/16/2017 11:45 8 (specimen) AM SMALL BATTERY PLATE ASSEMBLER 12:18 PM SMALL BATTERY PLATE ASSEMBLER Marnie Villar MD LAB - BLOOD ORDERABLES Performing Organization Address City/[facility] Phon e Number M [facility] [address] [address] [facility] [address] [phone] (ABNORMAL) Basic metabolic panel (08/16/2017 11:45 AM SMALL BATTERY PLATE ASSEMBLER) athologist Signature Sodium 138 133 - 144 08/16/2017 [place] mmol/L 12:40 PM [facility] Potassium 4.1 3.4 - 5.3 08/16/2017 [facility] mmol/L 12:40 PM [facility] Chloride 106 94 - 109 08/16/2017 [facility] mmol/L 12:40 PM [facility] Carbon Dioxide 23 20 - 32 08/16/2017 [place] mmol/L 12:40 PM [facility] Anion Gap 9 3 - 14 08/16/2017 [facility] mmol/L 12:40 PM [facility] Glucose 64 (L) 70 - 99 08/16/2017 [place] mg/dL 12:40 PM [facility] Urea Nitrogen 12 7 - 30 08/16/2017 [place] mg/dL 12:40 PM [facility] Creatinine 0.79 0.52 - 08/16/2017 [facility] 1.04 mg/dL 12:40 PM [facility] GFR Estimate 85 >60 08/16/2017 [place] mL/min/1.7 12:[address] Comment: Non GFR Calc GFR Estimate If >90 >60 mL/min/1.7m2 08/16/2017 12:40 PM [facility] Comment: GFR Calc Calcium 8.6 8.5 - 10.1 mg/dL 08/16/2017 12:40 PM [facility] Specimen Anatomical Collection Method Collection Time Receive d Time (Source) Location / / Volume Laterality Blood specimen 08/16/2017 11:45 8 (specimen) AM SMALL [employer]Y PLATE ASSEMBLER 12:18 PM SMALL BATTERY PLATE ASSEMBLER Marnie Villar MD LAB - BLOOD ORDERABLES Performing Organization Address City/State/ZIP [facility] Phon e Number [facility] [address] [place], [place] [address] [address] [address] [place], [place] [address], [facility] [phone] ALT (08/16/2017 11:45 AM SMALL BATTERY PLATE ASSEMBLER) P athologist Signature ALT 13 0 - 50 U/L 08/16/2017 [facility] 12:[address] [facility] Specimen Anatomical Collection Method Collection Time Receive d Time (Source) Location / / Volume Laterality Blood specimen 08/16/2017 11:45 8 (specimen) AM SMALL [employer]Y PLATE ASSEMBLER 12:18 PM SMALL BATTERY PLATE ASSEMBLER Marnie Villar MD LAB - BLOOD ORDERABLES Performing Organization Address City/State/ZIP [facility] Phon e Number [facility] [address] [place], [place] [address] [address] [address] [address] [address], [facility] [phone] AST (08/16/2017 11:45 AM SMALL BATTERY PLATE ASSEMBLER) P athologist Signature AST 21 0 - 45 U/L 08/16/2017 [facility] 12:[address] [facility] Specimen Anatomical Collection Method Collection Time Receive d Time (Source) Location / / Volume Laterality Blood specimen 08/16/2017 11:45 8 (specimen) AM SMALL [employer]TERY PLATE ASSEMBLER 12:18 PM SMALL BATTERY PLATE ASSEMBLER Marnie Villar MD LAB - BLOOD ORDERABLES Performing Organization Address City/[facility]/ZIP Code Phon e Number M [facility] [address] [place], [place] [address] [facility] [address] [place], [place] [address], [facility] [phone] ABO/Rh type and screen (08/16/2017 11:45 AM SMALL BATTERY PLATE ASSEMBLER) [facility] Method Time Signature ABO A 08/16/2017 [place] 1:02 PM [facility] RH(D) Pos [facility] Antibody Neg 08/16/2017 [place] Screen 1:02 PM [facility] Test Valid [place] 08/16/2017 [facility] 12:53 PM [facility] Specimen 08/19/2017 08/16/2017 [place] Expires 12:53 PM [facility] Specimen Anatomical Collection Method Collection Time Receive d Time (Source) Location / / Volume Laterality Blood specimen 08/16/2017 11:45 8 (specimen) AM SMALL [employer]Y PLATE ASSEMBLER 12:18 PM SMALL BATTERY PLATE ASSEMBLER Marnie Villar MD LAB - BLOOD BANK TEST ORDER Performing Organization Address [facility] Phon e Number M [facility] [address] [place], [place] [address] [facility] [address] [place], [place] [address] [facility] [phone] CBC with platelets differential (08/16/2017 11:45 AM SMALL BATTERY PLATE ASSEMBLER) [facility] Method Time Signature WBC 8.7 4.0 - 08/16/2017 [facility] 11.0 12:24 PM [facility] 10e9/L [facility] RBC Count 5.07 3.8 - 5.2 08/16/2017 [place] 10e12/L 12:[address] [facility] Hemoglobin 13.7 11.7 - 08/16/2017 [facility] 15.7 g/dL 12:24 PM [facility] Hematocrit 43.3 35.0 - 08/16/2017 [facility] [...] 150 - 450 08/16/2017 [facility] 10e9/L 12:24 [facility] Diff Method Automated 08/16/2017 [facility] Method 12:24 [facility] % Neutrophils 70.6 % 08/16/2017 [facility] 12:24 [facility] % Lymphocytes 19.1 % 08/16/2017 [facility] 12:24 [facility] % Monocytes 8.1 % 08/16/2017 [facility] [...] - 0.7 08/16/2017 [facility] Eosinophils 10e9/L 12:24 [facility] Absolute 0.0 0.0 - 0.2 08/16/2017 [facility] Basophils 10e9/L 12:[address] [facility] Abs Immature 0.1 0 - 0.4 08/16/2017 [facility] Granulocytes 10e9/L 12:[address] [facility] Absolute 0.0 08/16/2017 [place] Nucleated RBC 12:[address] [facility] Specimen Anatomical Collection Method Collection Time Receive d Time (Source) Location / / Volume Laterality Blood specimen 08/16/2017 11:45 8 (specimen) AM [employer] 12:19 PM [employer] Marnie Villar MD LAB - BLOOD ORDERABLES Performing Organization Address City/[facility]/ZIP Code Phon e Number [facility] [address], [place] [address] [facility] [address] [phone] Anti Treponema (08/16/2017 11:45 AM [employer]) Analysis Performed At Patho logist Time Signature Treponema Negative NEG^Negati 08/17/2017 [facility] 10:36 [facility] Specimen Anatomical Collection Method Collection Time Receive d Time (Source) Location / / Volume Laterality Blood specimen 08/16/2017 11:45 8 (specimen) AM [employer] 12:19 PM [employer] Marnie Villar MD LAB - BLOOD ORDERABLES Performing Organization Address City/State/ZIP Code Phon e Number [address] [address] [facility] Group B strep PCR (07/17/2017) [...] - BLOOD ORDERABLES Chlamydia trachomatis PCR (01/25/2017) [facility] Method Time Signature Chlamydia Negative Trachomatis PCR Patient Reported LAB - MICRO GENERAL ORDERABL ES Anti Treponema (01/25/2017) [facility] Method Time Signature Treponema Non Reactive [...] (TYLENOL) tablet 650 Given 08/20/2017 8:42 AM [employer] 650 mg mg 650 mg, Oral, EVERY [...] (TUMS) chewable tablet 500 Given 5:55 PM [employer] 500 mg mg 500 mg, Oral, DAILY PRN, heartburn, Starting on 08/16/17 at 1750 carboprost (HEMABATE) injection 250 mcg 250 mcg, Intramuscular, ONCE PRN, postpa rtum hemorrhage, Starting on 08/17/17 at 0153, For 1 dose, Start IF HEMORRHAGE, Post -procedure dextrose 5% in lactated ringers New Bag 08/17/2017 10:58 AM [employer] 125 mL/hr infusion at 125 mL/hr, Intravenous, [...] mg 0.3-0.5 mg, Intravenous, EVERY 30 MIN ND N, severe pain, Starting on 08/17/17 at 0153, Offer at least every 2 hours. Notify provider fo r new orders if agent ineffective. Hold while on [employer]. For ordered doses up t o 4 [...] tablet 800 mg Given 08/20/2017 8:42 AM [employer] 800 mg 800 mg, Oral, EVERY 6 HOURS PRN, cramping, Starting on 08/18/17 at 0400, Max dose: 3200 mg/day., Post-procedure Given 08/19/2017 10:40 PM [employer] 800 mg Given 08/19/2017 4:34 PM [employer] 800 mg lactated ringers BOLUS 1,000 mL [...] capsule 20 mg Given 08/16/2017 9:43 PM [employer] 20 mg 20 mg, Oral, 2 TIMES [...] analgesic side effe cts. Hold while on [employer] or with regular IV opioid dosing. Maximum t otal is 80 mg in 24 hours., Post-procedure oxytocin (PITOCIN) 30 units in New Bag 08/17/2017 3:03 AM [employer] 100 mL/hr 100 mL/hr 500 mL 0.9% [...] Post-procedure senna-docusate (SENOKOT-S;PERICOLACE) Given 08/19/2017 10:40 PM [employer] 1 tablet 8.6-50 MG per tablet 1 tablet 1 tablet, Oral, 2 TIMES DAILY PRN, constipation, Starting on 08/17/17 at 0153, If no bowel movement in 24 hours, increase to 2 tablets PO. Hold for loose stools. Preferred agent for constipation related to opioids., Post-procedure Given 08/18/2017 8:24 AM [employer] 1 tablet senna-docusate (SENOKOT-S;PERICOLACE) Given 08/20/2017 8:[address] 2 tablets 8.6-50 MG per tablet 2 tablet 2 tablet, Oral, 2 TIMES DAILY PRN, constipation, Starting on 08/17/17 at 0153, Hold for loose stools. Preferred agent for constipation related to opioids., Post-procedure Given 08/19/2017 8:40 AM [employer] 2 tablets Given 08/18/2017 10:32 PM [employer] 2 tablets simethicone (MYLICON) chewable tablet 80 [...] Recently Administered Medications Times are shown in [employer]. Scheduled Medication Order 08/18/2017 08/19/2017 08/20/2017 acetaminophen [...] First dose on Sat08/16/17 at 2115 Tdap (twwpyuv-ibxhcrgwqd-izkic pertussis) (ADACEL) inj ection 0.5 mL 1354 [...] mg 0.3-0.5 mg, Intravenous, EVERY 30 MIN ND N, severe pain, Starting on 08/17/17 at 0153, Offer at least every 2 hours. Notify provider for new orders if agent ineffective. Hold while on [employer]. For ordered doses up to 4 mg [...] or analgesic side effects. Hold while on [employer] or with regular IV opioid dosing. Maximum [...]
Post-procedure documented in this encounter Care Teams [employer] Relationship Specialty Start Date End Date Leela Ruano MD PCP - General [facility] 08/06/17 [facility] [id number] [place] [id number] documented as of this encounter
--- OUTSIDE RECORDS SUMMARY | 2022-03-10 17:01 | XMS_ITS | Encounter Summary ---
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 Rh Labor And Delivery Procedures LABOR AND DELIVERY [address] [place], [place] [address] Phone: Fax: Referral ID Status Reason Start Date Expiration Date Visits Requ ested Visits Authorized [id number] 1 1 Encounter Details Date Type Department Care Team Description 08/16/2017 - [facility] Marnie Villar MD [facility] [address] [facility] [address] [place] [address] delivery 08/20/2017 Encounter [facility] Lia Zacarias MD [facility] [address] [facility] [address] [place], [place] [address] delivered (Primary [address] [place] [address] Social History Tobacco Use Types Packs/Day Years Used Date Former Smoker Smokeless Tobacco: Never Used Alcohol Use Standard Drinks/Week Comments No 0 (1 standard drink = 0.6 oz pure alcoho l) Sex Assigned at Date Recorded Female 08/03/2021 2:35 PM PROCESS IMPROVEMENT CONSULTANT documented as of this encounter Last Filed Vital Signs Vital Sign Reading Time Taken Comments Blood Pressure 137/90 08/20/2017 8:34 AM PROCESS IMPROVEMENT CONSULTANT Pulse - - Temperature 36.5 ??C (97.7 ??F) 08/20/2017 8:34 AM PROCESS IMPROVEMENT CONSULTANT Respiratory Rate 18 08/20/2017 8:34 AM PROCESS IMPROVEMENT CONSULTANT Oxygen Saturation 96% 08/17/2017 8:20 AM PROCESS IMPROVEMENT CONSULTANT Inhaled Oxygen Concentration - - Weight 83.5 kg (184 lb) 08/16/2017 11:00 AM PROCESS IMPROVEMENT CONSULTANT Height 162.6 cm (5' 4) 08/16/2017 11:00 AM PROCESS IMPROVEMENT CONSULTANT Body Mass Index 31.58 08/16/2017 11:00 AM PROCESS IMPROVEMENT CONSULTANT documented in this encounter Discharge Summaries Lia Zacarias MD - 08/16/2017 10:52 AM CST Post-Operative Note and Discharge Summary Leodan Milligan Date of : 1985 Age: [age] year old Date of Admission: 08/16/2017 Date of Discharge: 08/20/2017 1:00 PM Admitting Physician: Lia Zacarias MD Discharge Physician: Lia Zacarias MD Discharging Service: Obstetrics and Gynecology Home clinic: [facility] Admission Diagnoses: Indication for care in [...] provider in 6 weeks Lia Zacarias MD ESS IMPROVEMENT CONSULTANT documented in this encounter Discharge Instructions Discharge InstructionsSoco HutchisonALVARO - 08/20/2017 10:38 AM CST Postop Instructions [phone] [facility]-[phone] Activity ?? Do not lift more than [...] questions or concerns after you return home. ESS IMPROVEMENT CONSULTANT documented in this encounter Medications at Time [...] Discharge home prec reviewed RTC 6 weeks ESS IMPROVEMENT CONSULTANT Marcie Sun PA-C - 08/19/2017 8:48 AM CST # 2 Post op . 40 2/7 weeks. Gest Diabetic. LGA. Pt states doing well. Nursing. Pain well controlled. Afebrile VSS. Hgb 10.5. Fundus firm light flow. Incision dry and intact. Passing flatus. Voiding w/o problems. Ext: w trace edema no pain. Normal postop course. Plan routine postop care. Plan to discharge to home 08/20. ESS IMPROVEMENT CONSULTANT Associated attestation - Asuncion Barnes MD - 08/19/2017 11:09 AM PROCESS IMPROVEMENT CONSULTANT Physician Attestation I agree with the information in this note. Memo Alex MD - 08/18/2017 8:47 AM CST Afebrile. Abdomen is soft nontender. Dressing removed, incision is clean and dry. Tolerating diet, good pain control. Afebrile for 24 hours. Imp normal post op course. Plan Discontinue IV antibiotics. ESS IMPROVEMENT CONSULTANT Memo Rosado MD - 08/17/2017 8:26 AM CST Mild elevation of temperature to 101.2 after her surgery, now on clindamycin and gent. No complaintsre incision. Tolerating diet, good pain control. Imp Post op c section Plan Continue antibiotics for at least 24 hours, otherwise routine post operative care. ESS IMPROVEMENT CONSULTANT Lia Zacarias MD - 08/17/2017 12:18 AM [...] primary section. Consent signed. Lia Zacarias MD ESS IMPROVEMENT CONSULTANT Marnie Villar MD - 08/16/2017 12:33 PM [...] labs pending. 3. GBS negative. Marnie Villar ESS IMPROVEMENT CONSULTANT documented in this encounter H&P Notes Lia [...] FHT--175, moderate LTV, no accels, no decels Early---ctx every 1-3 min Data: All laboratory data reviewed Lia Zacarias MD Marnie Gallo MD - 08/16/2017 12:33 PM CST No significant change in general health status based on examination of the patient, review of Nursing Admission Database and record. EFW: 8lb 8oz Mranie Villar ESS IMPROVEMENT CONSULTANT documented in this encounter Consult Notes Luther Dale LSW - 08/19/2017 11:52 AM CST D) SW responding to automatic referral, met with Leodan and Jovi who are and reside in [place]. Their baby Charleen is their first and is in the NICU for respiratory distress. They are prepared for her at home and are not on WIC. Leodan has 6 weeks off work and Jovi has one week off. Leodan's mother who lives in [place] will live with the couple for awhile [...] family while Charleen is in the NICU. ESS IMPROVEMENT CONSULTANT documented in this encounter Miscellaneous Notes Note [...] follow up phone call within a week. ESS IMPROVEMENT CONSULTANT Plan of Care - Mary Jane Welsh [...] present. Plan: Anticipate discharge home with . ESS IMPROVEMENT CONSULTANT Plan of Care - Bhavesh Moya RN [...] present and supportive, bonding well with . ESS IMPROVEMENT CONSULTANT Plan of Care - Yane Holden RN [...] and very attentive to pt and . ESS IMPROVEMENT CONSULTANT Note - Soco Santoro RN - 08/19/2017 [...] pump. Will continue to follow and support. ESS IMPROVEMENT CONSULTANT Plan of Care - Mary Jane Welsh RN - 08/19/2017 12:59 PM CST Problem: Patient Care Overview Goal: Plan of Care/Patient Progress Review Patient meeting expected goals this shift. Pain controlled with use of oral pain medications. Incision open to air, well-approximated. Up ad suzanne, ambulating to NICU to be with baby. ESS IMPROVEMENT CONSULTANT Note - Soco Santoro RN - 08/19/2017 [...] shield. Will continue to follow and support. ESS IMPROVEMENT CONSULTANT Plan of Care - Parris Medrano RN [...] sent EBM to NICU. Meeting expected goals. ESS IMPROVEMENT CONSULTANT Plan of Care - Dania Vargas RN [...] Continue to monitor per pt care plan. ESS IMPROVEMENT CONSULTANT Plan of Care - Lucia Pratt RN - 08/18/2017 1:27 PM CST Problem: Patient Care Overview Goal: Plan of Care/Patient Progress Review Outcome: Improving VSS. Antibiotics discontinued this morning per Dr. Rosado, IV removed. Pain well controlled with oral tylenol and ibuprofen. Pt in NICU frequently this shift with . Using breastpump. Will continue to monitor. ESS IMPROVEMENT CONSULTANT Plan of Care - Parris Medrano RN [...] to increase milk supply. Meeting expected goals. ESS IMPROVEMENT CONSULTANT Plan of Care - Dania Vargas RN [...] provided. Contnue to monitor per care plan. ESS IMPROVEMENT CONSULTANT Plan of Care - Amanda Landin RN [...] been afebrile this shift. Support persons present. ESS IMPROVEMENT CONSULTANT Provider Notification - Amanda Landin RN - 08/17/2017 8:20 AM CST 08/17/17 0820 Provider Notification Provider Name/Title Dr. Rosado Method of Notification At Bedside Dr. Rosado at bedside. Plan to take pandya out at lunch time and get pt up and moving. MD updated that pt is on IV Clindamycin and IV Gentamycin--temps improving. MD assessed pt--POC reviewed. All questions answered. ESS IMPROVEMENT CONSULTANT Provider Notification - Yanira Pena RN - 08/17/2017 5:20 AM PROCESS IMPROVEMENT CONSULTANT 08/17/17 0520 Provider Notification Provider Name/Title Dr. [...] Gentamycin for 24 hours, then will re-evaluate. ESS IMPROVEMENT CONSULTANT Plan of Care - Yanira Pena RN [...] Response: Patient tolerated transfer and is stable. ESS IMPROVEMENT CONSULTANT Plan of Care - Yanira Pena RN - 08/17/2017 3:10 AM CST Went down to NICU with to see baby in NICU. ESS IMPROVEMENT CONSULTANT Op Note - Lia Zacarias MD - [...] MD MT: LO Name: LEODAN MILLIGAN Account: [id number] : 1985 Procedure Date: 08/17/2017 Document: [id number] ESS IMPROVEMENT CONSULTANT Brief Op Note - Lia Zacarias MD - 08/17/2017 1:29 AM PROCESS IMPROVEMENT CONSULTANT [facility] Brief Operative Note Pre-operative diagnosis: 32yo at [...] for mild respiratory distress. Lia Zacarias MD ESS IMPROVEMENT CONSULTANT Provider Notification - Yanira Pena RN - 08/17/2017 12:15 AM PROCESS IMPROVEMENT CONSULTANT 08/17/17 0015 Provider Notification Provider Name/Title Dr. Zacarias Method of Notification At Bedside MD talking with patient regarding possible need for C/S, possible risks and benefits. Will have consent ready to sign for patient in agreement. ESS IMPROVEMENT CONSULTANT Provider Notification - Yanira Pena, SARAH - 08/17/2017 12:00 AM PROCESS IMPROVEMENT CONSULTANT 08/17/17 0000 Provider Notification Provider Name/Title Dr. Zacarias Method of Notification At Bedside MD at bedside to evaluate pushing, FHTs. ESS IMPROVEMENT CONSULTANT Provider Notification - Yanira Pena RN - 08/16/2017 11:45 PM PROCESS IMPROVEMENT CONSULTANT 08/16/17 2345 Provider Notification Provider Name/Title Dr. Zacarias Method of Notification Phone MD called in to evaluate FHT rate, pushing. ESS IMPROVEMENT CONSULTANT Provider Notification - Yanira Pena RN - 08/16/2017 10:20 PM PROCESS IMPROVEMENT CONSULTANT 08/16/170 Provider Notification Provider Name/Title Dr. Zacarias [...] and to call when needed for delivery. ESS IMPROVEMENT CONSULTANT Provider Notification - Katey Godwin RN - 08/16/2017 7:34 PM PROCESS IMPROVEMENT CONSULTANT 08/16/17 1932 Provider Notification Provider Name/Title Dr [...] will assume all cares at that time. ESS IMPROVEMENT CONSULTANT Provider Notification - Katey Godwin RN - 08/16/2017 4:54 PM PROCESS IMPROVEMENT CONSULTANT 08/16/17 1645 Provider Notification Provider Name/Title Dr Villar Method of Notification Phone Request Evaluate - Remote Notification Reason Status Update;SVE (Pitocin running at 1 abimael-unit) ESS IMPROVEMENT CONSULTANT Provider Notification - Katey Godwin RN - 08/16/2017 2:56 PM PROCESS IMPROVEMENT CONSULTANT 08/16/17 4256 Provider Notification Provider Name/Title Dr Villar Method of Notification Phone Request Evaluate - Remote Notification Reason SVE;Status Update MD updated of SVE no change. Pt now very uncomfortable, rates 6/10. Fentanyl given. IV flushing. OK for epidural at any time. Will continue to monitor and update as needed. ESS IMPROVEMENT CONSULTANT Plan of Care - Katey Godwin RN - 08/16/2017 1:06 PM CST Patient off monitors to ambulate hallways. Instructed to notify nurse if patient notices any significant changes in condition. ESS IMPROVEMENT CONSULTANT Provider Notification - Katey Godwin RN - 08/16/2017 12:26 PM PROCESS IMPROVEMENT CONSULTANT 08/16/17 1215 Provider Notification Provider Name/Title Dr Villar Method of Notification Phone Request Evaluate - Remote Notification Reason Patient Arrived;Status Update MD to come for AROM, intrapartum orders placed ESS IMPROVEMENT CONSULTANT Provider Notification - Yanira Pena, RN - 08/16/2017 8:30 AM PROCESS IMPROVEMENT CONSULTANT 08/16/172032 Provider Notification Provider Name/Title Dr. Zacarias Method of Notification Phone Request Evaluate - Remote Notification Reason Other (Comment) MD called to ask about a medication that she ordered with previous nurse. MD discontinued that Medication, and ordered po Prilosec 20 mg BID , start when patient's nausea after emesis feels better. Call MD with any questions or when needed. ESS IMPROVEMENT CONSULTANT documented in this encounter Plan of Treatment Not on filedocumented as of this encounter Procedures Procedure Name Priority Date/Time Associated Comments Diagnosis HEMOGLOBIN Routine 08/18/2017 7:05 AM Results f or this PROCESS IMPROVEMENT CONSULTANT procedure are i n the results section. GLUCOSE BY METER Routine 08/17/2017 6:35 AM Resul ts for this PROCESS IMPROVEMENT CONSULTANT procedure are i n the results section. SECTION 08/17/2017 12:20 section AM PROCESS IMPROVEMENT CONSULTANT GLUCOSE BY METER Routine 08/16/2017 10:35 Results for this PM PROCESS IMPROVEMENT CONSULTANT procedure are i n the results section. GLUCOSE BY METER Routine 08/16/2017 8:37 PM Resul ts for this PROCESS IMPROVEMENT CONSULTANT procedure are i n the results section. GLUCOSE BY METER Routine 08/16/2017 6:28 PM Resul ts for this PROCESS IMPROVEMENT CONSULTANT procedure are i n the results section. PROTEIN RANDOM URINE STAT 08/16/2017 5:30 PM R esults for this PROCESS IMPROVEMENT CONSULTANT procedure are i n the results section. CREATININE URINE Routine 08/16/2017 5:30 PM Resul ts for this CALCULATION ONLY (LAB PROCESS IMPROVEMENT CONSULTANT proced ure are in ONLY) the results section. GLUCOSE BY METER Routine 08/16/2017 5:14 PM Resul ts for this PROCESS IMPROVEMENT CONSULTANT procedure are i n the results section. CBC WITH PLATELETS & STAT 08/16/2017 11:45 Res ults for this DIFFERENTIAL AM PROCESS IMPROVEMENT CONSULTANT procedure are i n the results section. URIC ACID STAT 08/16/2017 11:45 Results for this AM PROCESS IMPROVEMENT CONSULTANT procedure are i n the results section. AST STAT 08/16/2017 11:45 Results for this AM PROCESS IMPROVEMENT CONSULTANT procedure are i n the results section. ANTI TREPONEMA STAT 08/16/2017 11:45 Results f or this AM PROCESS IMPROVEMENT CONSULTANT procedure are i n the results section. ALT STAT 08/16/2017 11:45 Results for this AM PROCESS IMPROVEMENT CONSULTANT procedure are i n the results section. ABO/RH TYPE AND STAT 08/16/2017 11:45 Results for this SCREEN AM PROCESS IMPROVEMENT CONSULTANT procedure are i n the results section. BASIC METABOLIC PANEL STAT 08/16/2017 11:45 Re sults for this AM PROCESS IMPROVEMENT CONSULTANT procedure are i n the results section. [...] encounter Results (ABNORMAL) Hemoglobin (08/18/2017 7:05 AM PROCESS IMPROVEMENT CONSULTANT) P athologist Signature Hemoglobin 10.5 (L) 11.7 - 15.7 08/18/2017 [place] g/dL 7:56 AM [facility] Specimen Anatomical Collection Method Collection Time Receive d Time (Source) Location / / Volume Laterality Blood specimen 08/18/2017 7:05 AM 018 7:06 (specimen) PROCESS IMPROVEMENT CONSULTANT AM PROCESS IMPROVEMENT CONSULTANT Lia Zacarias MD LAB - BLOOD ORDERABLES Performing Organization Address City/State/ZIP Code Phon e Number M [facility] [address] [place], [place] [address] [facility] [address] [place], [place] [address] [id number] [phone] (ABNORMAL) Glucose by meter (08/17/2017 6:35 AM PROCESS IMPROVEMENT CONSULTANT) P athologist Signature Glucose 114 (H) 70 - 99 08/17/2017 [facility] mg/dL 6:40 AM PROCESS IMPROVEMENT CONSULTANT TEST, GLUCOSE Specimen Anatomical Collection Method Collection Time Receive d Time (Source) Location / / Volume Laterality 08/17/2017 6:35 AM 8 6:40 PROCESS IMPROVEMENT CONSULTANT AM PROCESS IMPROVEMENT CONSULTANT Lia ALBARADO - BEKE[place] POCT Performing Organization Address City/[facility]/ZIP Code Phon e Number F[facility] POINT OF CARE TEST, GLUCOSE POINT OF CARE TEST, GLUCOSE Glucose by meter (08/16/2017 10:35 PM PROCESS IMPROVEMENT CONSULTANT) P athologist Signature Glucose 70 70 - 99 08/17/2017 [facility] mg/dL 1:15 AM PROCESS IMPROVEMENT CONSULTANT TEST, GLUCOSE Specimen Anatomical Collection Method Collection Time Receive d Time (Source) Location / / Volume Laterality 08/16/2017 10:35 08/17/2017 1:15 PM PROCESS IMPROVEMENT CONSULTANT AM PROCESS IMPROVEMENT CONSULTANT Marnie Villar MD LAB - BEKEVIN POCT Performing Organization Address City/[facility]/ZIP Code Phon e Number [facility] POINT OF CARE TEST, GLUCOSE POINT OF CARE TEST, GLUCOSE (ABNORMAL) Glucose by meter (08/16/2017 8:37 PM PROCESS IMPROVEMENT CONSULTANT) P athologist Signature Glucose 62 (L) 70 - 99 08/16/2017 [facility]ARE mg/dL 8:40 PM PROCESS IMPROVEMENT CONSULTANT TEST, GLUCOSE Specimen Anatomical Collection Method Collection Time Receive d Time (Source) Location / / Volume Laterality 08/16/2017 8:37 PM 8 8:40 PROCESS IMPROVEMENT CONSULTANT PM PROCESS IMPROVEMENT CONSULTANT Marnie Villar MD LAB - [place]AMA[place] POCT Performing Organization Address City/[facility]/ZIP Code Phon e Number F[facility] POINT OF CARE TEST, GLUCOSE POINT OF CARE TEST, GLUCOSE Glucose by meter (08/16/2017 6:28 PM PROCESS IMPROVEMENT CONSULTANT) P athologist Signature Glucose 71 70 - 99 08/16/2017 PO[facility] CARE mg/dL 6:30 PM PROCESS IMPROVEMENT CONSULTANT TEST, GLUCOSE Specimen Anatomical Collection Method Collection Time Receive d Time (Source) Location / / Volume Laterality 08/16/2017 6:28 PM 8 6:30 PROCESS IMPROVEMENT CONSULTANT PM PROCESS IMPROVEMENT CONSULTANT Marnie Villar MD LAB - [place]AK[place] POCT Performing Organization Address City/State/ZIP Code Phon e Number [facility] POINT OF CARE TEST, GLUCOSE POINT OF CARE TEST, GLUCOSE Creatinine urine calculation only (08/16/2017 5:30 PM PROCESS IMPROVEMENT CONSULTANT) P athologist Signature Creatinine 142 mg/dL 08/16/2017 [place] Urine 6:36 PM [facility] Specimen Anatomical Collection Method Collection Time Receive d Time (Source) Location / / Volume Laterality 08/16/2017 5:30 PM 8 6:10 PROCESS IMPROVEMENT CONSULTANT PM PROCESS IMPROVEMENT CONSULTANT Marnie Villar MD LAB - URINE ORDERABLES Performing Organization Address City/State/ZIP Code Phon e Number M [facility] [address] [place] [address] [facility] [address] [place] [address], [place] [phone] (ABNORMAL) Protein random urine with Creat Ratio (08/16/2017 5:30 PM PROCESS IMPROVEMENT CONSULTANT) Analysis Performed At Patho logist Time Signature Protein Random 0.32 g/L 08/16/2017 [place] Urine 6:36 PM [facility] Protein Total 0.22 (H) 0 - 0.2 08/16/2017 [place] Urine g/gr g/g Cr 6:36 PM [facility] Specimen Anatomical Collection Method Collection Time Receive d Time (Source) Location / / Volume Laterality Urine specimen URINE SPECIMEN 08/16/2017 5:30 PM 08/16 6:10 (specimen) OBTAINED BY CLEAN PROCESS IMPROVEMENT CONSULTANT PM PROCESS IMPROVEMENT CONSULTANT CATCH PROCEDURE / Unknown Marnie Villar MD LAB - URINE ORDERABLES Performing Organization Address City/State/ZIP Code Phon e Number M [facility] [address] [place] [address] [facility] [address] [place] [address], [place] [phone] (ABNORMAL) Glucose by meter (08/16/2017 5:14 PM PROCESS IMPROVEMENT CONSULTANT) P athologist Signature Glucose 69 (L) 70 - 99 08/16/2017 [facility] CARE mg/dL 5:21 PM PROCESS IMPROVEMENT CONSULTANT TEST, GLUCOSE Specimen Anatomical Collection Method Collection Time Receive d Time (Source) Location / / Volume Laterality 08/16/2017 5:14 PM 8 5:21 PROCESS IMPROVEMENT CONSULTANT PM PROCESS IMPROVEMENT CONSULTANT Marnie Villar MD LAB - BEAKER POCT Performing Organization Address City/State/ZIP Code Phon e Number [facility] POINT OF CARE TEST, GLUCOSE POINT OF CARE TEST, GLUCOSE Uric acid (08/16/2017 11:45 AM PROCESS IMPROVEMENT CONSULTANT) athologist Signature Uric Acid 5.8 2.6 - 6.0 08/16/2017 [facility] mg/dL 12:40 PM [facility] Specimen Anatomical Collection Method Collection Time Receive d Time (Source) Location / / Volume Laterality Blood specimen 08/16/2017 11:45 8 (specimen) AM PROCESS IMPROVEMENT CONSULTANT 12:18 PM PROCESS IMPROVEMENT CONSULTANT Marnie Villar MD LAB - BLOOD ORDERABLES Performing Organization Address City/[facility]/ZIP [facility] Phon e Number M [place] [address] [phone] [facility] [address] [phone] (ABNORMAL) Basic metabolic panel (08/16/2017 11:45 AM PROCESS IMPROVEMENT CONSULTANT) athologist Signature Sodium 138 133 - 144 08/16/2017 [place] mmol/L 12:40 PM [facility] Potassium 4.1 3.4 - 5.3 08/16/2017 [facility] mmol/L 12:40 PM [facility] Chloride 106 94 - 109 08/16/2017 [facility] mmol/L 12:40 PM [facility] Carbon Dioxide 23 20 - 32 08/16/2017 [facility] mmol/L 12:40 PM [facility] Anion Gap 9 3 - 14 08/16/2017 [facility] mmol/L 12:40 PM [facility] Glucose 64 (L) 70 - 99 08/16/2017 [facility] mg/dL 12:40 PM [facility] Urea Nitrogen 12 7 - 30 08/16/2017 [place] mg/dL 12:40 PM [facility] Creatinine 0.79 0.52 - 08/16/2017 [facility] 1.04 mg/dL 12:40 PM [facility] GFR Estimate 85 >60 08/16/2017 [place] mL/min/1.7 12:[address] Comment: Non GFR Calc GFR Estimate If >90 >60 mL/min/1.7m2 08/16/2017 12:40 PM [facility] Comment: GFR Calc Calcium 8.6 8.5 - 10.1 mg/dL 08/16/2017 12:40 PM [facility] Specimen Anatomical Collection Method Collection Time Receive d Time (Source) Location / / Volume Laterality Blood specimen 08/16/2017 11:45 8 (specimen) AM PROCESS IMPROVEMENT CONSULTANT 12:18 PM PROCESS IMPROVEMENT CONSULTANT Marnie Villar MD LAB - BLOOD ORDERABLES Performing Organization Address City/State/ZIP Code Phon e Neri [facility] [address], [place] [address] [place] [address] [address] [place], [place] [address], [facility] [phone] ALT (08/16/2017 11:45 AM PROCESS IMPROVEMENT CONSULTANT) P athologist Signature ALT 13 0 - 50 U/L 08/16/2017 [facility] 12:40 PM [facility] Specimen Anatomical Collection Method Collection Time Receive d Time (Source) Location / / Volume Laterality Blood specimen 08/16/2017 11:45 8 (specimen) AM PROCESS IMPROVEMENT CONSULTANT 12:18 PM PROCESS IMPROVEMENT CONSULTANT Marnie Villar MD LAB - BLOOD ORDERABLES Performing Organization Address City/State/ZIP Code Phon e Neri [facility] [address], [place] [address] [place] [address] [address] [address], [facility] [phone] AST (08/16/2017 11:45 AM PROCESS IMPROVEMENT CONSULTANT) P athologist Signature AST 21 0 - 45 U/L 08/16/2017 [facility] 12:40 PM [facility] Specimen Anatomical Collection Method Collection Time Receive d Time (Source) Location / / Volume Laterality Blood specimen 08/16/2017 11:45 01/19/201 8 (specimen) AM PROCESS IMPROVEMENT CONSULTANT 12:18 PM PROCESS IMPROVEMENT CONSULTANT Marnie Villar MD LAB - BLOOD ORDERABLES Performing Organization Address City/[facility]/ZIP Code Phon malia Aguilar [facility] [address], [place] [address] [facility] [address] [place], [place] [address], [facility] [phone] ABO/Rh type and screen (08/16/2017 11:45 AM PROCESS IMPROVEMENT CONSULTANT) [facility] Method Time Signature ABO A 08/16/2017 [facility] 1:02 PM [facility] RH(D) Pos [facility] Antibody Neg 08/16/2017 [place] Screen 1:02 PM [facility] Test Valid [place] 08/16/2017 [facility] Only At [facility] 12:53 PM [facility] Specimen 08/19/2017 08/16/2017 [facility] Expires 12:53 PM [facility] Specimen Anatomical Collection Method Collection Time Receive d Time (Source) Location / / Volume Laterality Blood specimen 08/16/2017 11:45 8 (specimen) AM PROCESS IMPROVEMENT CONSULTANT 12:18 PM PROCESS IMPROVEMENT CONSULTANT Marnie Villar MD LAB - BLOOD BANK TEST ORDER Performing Organization Address City/[facility]/ZIP [facility] Phon malia Aguilar [facility] [address], [place] [address] [facility] [address] [place], [place] [address], [facility] [phone] CBC with platelets differential (08/16/2017 11:45 AM PROCESS IMPROVEMENT CONSULTANT) [facility] Method Time Signature WBC 8.7 4.0 - 08/16/2017 [facility] 11.0 12:24 PM [facility] 10e9/L [facility] RBC Count 5.07 3.8 - 5.2 08/16/2017 [facility] 10e12/L 12:24 PM [facility] Hemoglobin 13.7 11.7 - 08/16/2017 [facility] 15.7 g/dL 12:24 PM [facility] Hematocrit 43.3 35.0 - 08/16/2017 [facility] 47.0 % 12:24 PM [facility] MCV 85 78 - 100 08/16/2017 [facility] fl 12:24 PM [facility] MCH 27.0 26.5 - 08/16/2017 [facility] 33.0 pg 12:24 PM [facility] MCHC 31.6 31.5 - 08/16/2017 [facility] 36.5 g/dL 12:24 [facility] RDW 14.4 10.0 - 08/16/2017 [facility] 15.0 % 12:24 PM [facility] Platelet Count 272 150 - 450 08/16/2017 [facility] 10e9/L 12:24 [facility] Diff Method Automated 08/16/2017 [facility] Method 12:24 PM [facility] % Neutrophils 70.6 % 08/16/2017 [facility] 12:24 PM [facility] % Lymphocytes 19.1 % 08/16/2017 [facility] 12:24 PM [facility] % Monocytes 8.1 % 08/16/2017 [facility] 12:24 PM [facility] % Eosinophils 1.3 % 08/16/2017 [facility] 12:24 PM [facility] % Basophils 0.3 % 08/16/2017 [facility] 12:24 PM [facility] % Immature 0.6 % 08/16/2017 [facility] Granulocytes 12:24 PM [facility] Nucleated RBCs 0 0 /100 08/16/2017 [facility] 12:24 PM [facility] Absolute 6.1 1.6 - 8.3 08/16/2017 [facility] Neutrophil 10e9/L 12:24 PM [facility] Absolute 1.7 0.8 - 5.3 08/16/2017 [facility] Lymphocytes 10e9/L 12:24 PM [facility] Absolute 0.7 0.0 - 1.3 08/16/2017 [facility] Monocytes 10e9/L 12:24 PM [facility] Absolute 0.1 0.0 - 0.7 08/16/2017 [facility] Eosinophils 10e9/L 12:24 PM [facility] Absolute 0.0 0.0 - 0.2 08/16/2017 [facility] Basophils 10e9/L 12:24 [facility] Abs Immature 0.1 0 - 0.4 08/16/2017 [facility] Granulocytes 10e9/L 12:24 PM [facility] Absolute 0.0 08/16/2017 [facility] Nucleated RBC 12:24 PM [facility] Specimen Anatomical Collection Method Collection Time Receive d Time (Source) Location / / Volume Laterality Blood specimen 08/16/2017 11:45 8 (specimen) AM PROCESS IMPROVEMENT CONSULTANT 12:19 PM PROCESS IMPROVEMENT CONSULTANT Marnie Villar MD LAB - BLOOD ORDERABLES Performing Organization Address City/State/ZIP Code Phon e Number [place] [address], [place] [address] [facility] [address] [place], [place] [address] [facility] [phone] Anti Treponema (08/16/2017 11:45 AM PROCESS IMPROVEMENT CONSULTANT) Analysis Performed At Patho logist Time Signature Treponema Negative NEG^Negati 08/17/2017 [facility] 10:36 AM [facility] Specimen Anatomical Collection Method Collection Time Receive d Time (Source) Location / / Volume Laterality Blood specimen 08/16/2017 11:45 8 (specimen) AM PROCESS IMPROVEMENT CONSULTANT 12:19 PM PROCESS IMPROVEMENT CONSULTANT Marnie Villar MD LAB - BLOOD ORDERABLES Performing Organization Address City/State/ZIP Code Phon e Number [address] [address] [facility] Group B strep PCR (07/17/2017) athologist Signature [...] - BLOOD ORDERABLES Chlamydia [facility]omatis [facility]25/2017[facility] Method Time Signature Chlamydia Negative Trachomatis PCR Patient Reported LAB - MICRO GENERAL ORDERABL ES Anti Treponema (01/25/2017) [facility] gist Method Time Signature Treponema Non [...] (TYLENOL) tablet 650 Given 08/20/2017 8:42 AM PROCESS IMPROVEMENT CONSULTANT 650 mg mg 650 mg, Oral, EVERY [...] tablet 975 mg Given 08/19/2017 10:40 PM PROCESS IMPROVEMENT CONSULTANT 975 mg 975 mg, Oral, EVERY 8 HOURS, First dose on 08/17/17 at 0200, For 3 days, Do not use if patient has an active opioid/acetaminophen combined analgesic product ordered for pain. Maximum acetaminophen dose from all sources = 75 mg/kg/day not to exceed 4 grams/day., Post-procedure Given 08/19/2017 2:36 PM PROCESS IMPROVEMENT CONSULTANT 975 mg Given 08/19/2017 6:39 AM PROCESS IMPROVEMENT CONSULTANT 975 mg bisacodyl (DULCOLAX) Suppository 10 mg [...] (TUMS) chewable tablet 500 Given 5:55 PM PROCESS IMPROVEMENT CONSULTANT 500 mg mg 500 mg, Oral, DAILY PRN, heartburn, Starting on Sat08/16/17 at 1750 carboprost (HEMABATE) injection 250 mcg 250 mcg, Intramuscular, ONCE PRN, postpa rtum hemorrhage, Starting on 08/17/17 at 0153, For 1 dose, Start IF HEMORRHAGE, Post -procedure clindamycin (CLEOCIN) infusion 900 New Bag 08/18/2017 8:24 AM PROCESS IMPROVEMENT CONSULTANT 900 mg 50 mL/hr mg STAT, 900 mg, Intravenous, EVERY 8 HOURS, First dose on 08/17/17 at 0600, This medication is not recommended if patient is . Inform patient/minimize use. , Indications: Possible Chorioamnitis during Labor New Bag 08/17/2017 11:23 PM PROCESS IMPROVEMENT CONSULTANT 900 mg 50 mL/hr New Bag 08/17/2017 4:18 PM PROCESS IMPROVEMENT CONSULTANT 900 mg 50 mL/hr dextrose 5% in lactated ringers New Bag 08/17/2017 10:58 AM PROCESS IMPROVEMENT CONSULTANT 125 mL/hr infusion at 125 mL/hr, Intravenous, [...] (SUBLIMAZE) injection 50-100 Given 08/16/2017 2:44 PM PROCESS IMPROVEMENT CONSULTANT 100 mcg mcg 50-100 mcg, Intravenous, EVERY [...] mg in New Bag 08/18/2017 1:00 AM PROCESS IMPROVEMENT CONSULTANT 14 0 mg 50 mL/hr NaCl 0.9 % 50 mL intermittent infusion Routine, 140 mg (rounded from 132.4 mg = 2 mg/kg ? 66.2 kg Adjusted weight), Intravenous, EVERY 8 HOURS, First dose on 08/17/17 at 0700, Indications: possible chorioamnionitis New Bag 08/17/2017 2:33 PM PROCESS IMPROVEMENT CONSULTANT 140 mg New Bag 08/17/2017 6:31 AM PROCESS IMPROVEMENT CONSULTANT 140 mg glucagon injection 1 mg 1 [...] mg 0.3-0.5 mg, Intravenous, EVERY 30 MIN AK N, severe pain, Starting on 08/17/17 at 0153, Offer at least every 2 hours. Notify provider fo r new orders if agent ineffective. Hold while on CAR RENTAL DELIVERER. For ordered doses up t o 4 [...] tablet 800 mg Given 08/20/2017 8:42 AM PROCESS IMPROVEMENT CONSULTANT 800 mg 800 mg, Oral, EVERY 6 HOURS PRN, cramping, Starting on 08/18/17 at 0400, Max dose: 3200 mg/day., Post-procedure Given 08/19/2017 10:40 PM PROCESS IMPROVEMENT CONSULTANT 800 mg Given 08/19/2017 4:34 PM PROCESS IMPROVEMENT CONSULTANT 800 mg ketorolac (TORADOL) injection 30 mg Given 08/18/2017 12:59 AM PROCESS IMPROVEMENT CONSULTANT 30 mg 30 mg, Intravenous, EVERY 6 HOURS, First dose on 08/17/17 at 0415, For 24 hours, Give first dose in PACU (alright to give with narcotic analgesic if ordered) X 24 hours For ordered doses up to 30 mg, give IV Push undiluted over 2 minutes., Post-procedure Given 08/17/2017 4:18 PM PROCESS IMPROVEMENT CONSULTANT 30 mg Given 08/17/2017 10:05 AM PROCESS IMPROVEMENT CONSULTANT 30 mg lactated ringers BOLUS 1,000 mL Intravenous, 1,000 mL, ONCE PRN, post pa rtum hemorrhage, Starting on 08/17/17 at 0153, For 1 dose, Rate: 500-1000 mL/hr. Start IF POSTP ARTUM HEMORRHAGE, Post-procedure lactated ringers infusion New Bag 08/16/2017 11:13 PM PROCESS IMPROVEMENT CONSULTANT 125 mL/hr at 125 mL/hr, Intravenous, CONTINUOUS, Starting on Sat08/16/17 at 1215, Until 08/17/17 at 0530 New Bag 08/16/2017 3:58 PM PROCESS IMPROVEMENT CONSULTANT 125 mL/hr New Bag 08/16/2017 3:00 PM PROCESS IMPROVEMENT CONSULTANT 999 mL/hr lanolin ointment Topical, EVERY 1 [...] capsule 20 mg Given 08/16/2017 9:43 PM PROCESS IMPROVEMENT CONSULTANT 20 mg 20 mg, Oral, 2 TIMES DAILY, First dose on Sat08/16/17 at 2115 ondansetron (ZOFRAN) injection 4 mg Given 08/17/2017 12:33 AM PROCESS IMPROVEMENT CONSULTANT 4 mg 4 mg, Intravenous, EVERY 6 HOURS PRN, nausea, vomiting, Administer over 2-5 Minutes, Starting on Sat08/16/17 at 1207, If nausea not resolved in 15 minutes, notify provider before proceeding to prochlorperazine (COMPAZINE) [if ordered]. Irritant. For ordered doses up to 4 mg, give IV Push undiluted over 2-5 minutes. Given 08/16/2017 11:44 PM PROCESS IMPROVEMENT CONSULTANT 4 mg ondansetron (ZOFRAN) injection 4 mg [...] analgesic side effe cts. Hold while on CAR RENTAL DELIVERER or with regular IV opioid dosing. Maximum t otal is 80 mg in 24 hours., Post-procedure oxytocin (PITOCIN) 30 Rate/Dose 08/16/2017 11:23 0.5 michoacano-units/min 0.5 mL/hr units in 500 mL 0.9% Change PM PROCESS IMPROVEMENT CONSULTANT NaCl infusion 1-24 michoacano-units/min (1-24 mL/hr), Intravenous, [...] ripening medication. New Bag 08/16/2017 4:12 PM PROCESS IMPROVEMENT CONSULTANT 1 michoacano-units/min 1 mL/hr oxytocin (PITOCIN) 30 units in New Bag 08/17/2017 3:03 AM PROCESS IMPROVEMENT CONSULTANT 100 mL/hr 100 mL/hr 500 mL 0.9% [...] Post-procedure senna-docusate (SENOKOT-S;PERICOLACE) Given 08/19/2017 10:40 PM PROCESS IMPROVEMENT CONSULTANT 1 tablet 8.6-50 MG per tablet 1 tablet 1 tablet, Oral, 2 TIMES DAILY PRN, constipation, Starting on 08/17/17 at 0153, If no bowel movement in 24 hours, increase to 2 tablets PO. Hold for loose stools. Preferred agent for constipation related to opioids., Post-procedure Given 08/18/2017 8:24 AM PROCESS IMPROVEMENT CONSULTANT 1 tablet senna-docusate (SENOKOT-S;PERICOLACE) Given 08/20/2017 8:[address] 2 tablets 8.6-50 MG per tablet 2 tablet 2 tablet, Oral, 2 TIMES DAILY PRN, constipation, Starting on 08/17/17 at 0153, Hold for loose stools. Preferred agent for constipation related to opioids., Post-procedure Given 08/19/2017 8:40 AM PROCESS IMPROVEMENT CONSULTANT 2 tablets Given 08/18/2017 10:32 PM PROCESS IMPROVEMENT CONSULTANT 2 tablets simethicone (MYLICON) chewable tablet 80 mg 80 mg, Oral, 4 TIMES DAILY PRN, other, g as, Starting on 08/17/17 at 0153, Chew., Post-procedure sodium citrate-citric acid (BICITRA) solution Given 7:45 PM PROCESS IMPROVEMENT CONSULTANT 30 mLs 30 mL 30 mL, Oral, [...] Recently Administered Medications Times are shown in PROCESS IMPROVEMENT CONSULTANT. Scheduled Medication Order 08/18/2017 08/19/2017 08/20/2017 acetaminophen [...] First dose on 08/16/17 at 2115 Tdap (crmbtps-btavldrhut-uwvxj pertussis) (ADACEL) inj ection 0.5 mL 1354 [...] mg 0.3-0.5 mg, Intravenous, EVERY 30 MIN AK N, severe pain, Starting on 08/17/17 at 0153, Offer at least every 2 hours. Notify provider for new orders if agent ineffective. Hold while on CAR RENTAL DELIVERER. For ordered doses up to 4 mg [...] or analgesic side effects. Hold while on CAR RENTAL DELIVERER or with regular IV opioid dosing. Maximum [...] MG per tablet 1 tablet(Linked Group 4) 3002 (Given - Provider: Lucia Pratt RN)2231 (See [...]
Post-procedure documented in this encounter Care Teams Knowledge Management Advisor Relationship Specialty Start Date End Date Leela Ruano MD PCP - General [facility] 08/06/17 [facility] [address] [place] [address] documented as of this encounter
--- OUTSIDE RECORDS SUMMARY | 2022-03-10 17:02 | XMS_ITS | Encounter Summary ---
:1985 Author Organization [employer] Address [address] [place] [address] Care Team Providers Name Role Phone Leela Ruano MD Primary Care Provider Encounter Details Date Type Department Care Team Description 11/28/2010 PN Conversion Only [facility] Leela Ruano , Medicine [address] [address] [place] [address] [place] [address] [phone] (Wo rk) Social History Tobacco Use Types Packs/Day Years Used Date Smoking Tobacco: Never Assessed Sex Assigned at Date Recorded Not on file documented as of this encounter Plan of Treatment Not on filedocumented as of this encounter Visit Diagnoses Not on filedocumented in this encounter Care Teams Multimedia Teacher Relationship Specialty Start Date End Date Leela Ruano MD PCP - General 10/31/10 [address] [place] [address] documented as of this encounter
--- OUTSIDE RECORDS SUMMARY | 2022-03-10 17:02 | XMS_ITS | Encounter Summary ---
:1985 Author Organization [facility] Address [address], [place] [address] Care Team Providers Name Role Phone Leela Ruano MD Primary Care Provider Reason for Visit Reason Onset Date Comments Sore Throat 01/05/2017 Encounter Details Date Type Department Care Team Description 01/05/2017 Telephone [facility] Leela Gomes MD Sore Throat [address] [address] [place] [address] [place] [address] [phone] (Wo rk) Social History Tobacco Use Types [...] on filedocumented in this encounter Care Teams Club Licensee Relationship Specialty Start Date End Date Leela Ruano MD PCP - General 10/31/10 [address] [place] [address] documented as of this encounter
--- OUTSIDE RECORDS SUMMARY | 2022-03-10 17:02 | XMS_ITS | Encounter Summary ---
:1985 Author Organization [facility] Address [address] [place] [address] Care Team Providers Name Role Phone Leela Ruano MD Primary Care Provider Encounter Details Date Type Department Care Team Description 11/20/2009 PN Conversion Only [facility] [address] [address] [place] [address] Social History Tobacco Use Types Packs/Day Years Used Date Smoking Tobacco: Never Assessed Sex Assigned at Date Recorded Not on file documented as of this encounter Plan of Treatment Not on filedocumented as of this encounter Visit Diagnoses Not on filedocumented in this encounter Care Teams Store Stock Help Relationship Specialty Start Date End Date Leela Ruano MD PCP - General 10/31/[address] [place] [address] documented as of this encounter
--- OUTSIDE RECORDS SUMMARY | 2022-03-10 17:02 | XMS_ITS | Encounter Summary ---
:1985 Author Organization [employer] Address [address] [place] [address] Care Team Providers Name Role Phone Unavailable Primary Care Provider Unavailable Encounter Details Date Type Department Care Team Description 12/31/2016 Orders Only [facility] Erin Briceño MD [facility] [address] test (Primary Dx) [place], [place] [address] [place] [address] [place] [address] Social History Tobacco Use Types Packs/Day Years Used Date Never Assessed Sex Assigned at Date Recorded Female 08/03/2021 2:35 PM PRODUCTION ILLUSTRATOR documented as of this encounter Plan of Treatment Not on filedocumented as of this encounter Visit Diagnoses Diagnosis Positive test - Primary examination or test, positive result documented in this encounter
--- OUTSIDE RECORDS SUMMARY | 2022-03-10 17:02 | XMS_ITS | Encounter Summary ---
:1985 Author Organization [employer] Address [address] [place] [address] Care Team Providers Name Role Phone Leela Ruano MD Primary Care Provider Reason for Visit Reason Comments LAB RESULTS Encounter Details Date Type Department Care Team Description 12/13/2021 Telephone [facility] [address] Emma Branham MD LAB RESULTS Endocrinology [address] [place] [address] [place], [place] [address] [phone] Social History Tobacco Use Types Packs/Day Years [...] 11:12 AM CDT Received lab results form [facility], placed in [employer] mailbox to review documented in this encounter Plan of Treatment Not on filedocumented as of this encounter Visit Diagnoses Not on filedocumented in this encounter Care Teams Data Technical Lead Relationship Specialty Start Date End Date Leela Ruano MD PCP - General 10/31/10 [address] [address] [place] [address] documented as of this encounter
--- OUTSIDE RECORDS SUMMARY | 2022-03-10 17:02 | XMS_ITS | Encounter Summary ---
:1985 Author Organization [employer] Address [address], [place] [address] Care Team Providers Name Role Phone Leela Ruano MD Primary Care Provider Encounter Details Date Type Department Care Team Description 08/01/2009 Office Visit [facility] Micaela Buckner PA-C [address] [place] [phone] (Wo rk) Social History Tobacco Use Types Packs/Day Years Used Date Smoking Tobacco: Never Assessed Sex Assigned at Date Recorded Not on file documented as of this encounter Last Filed Vital Signs Vital Sign Reading Time Taken Comments Blood Pressure 127/82 08/01/2009 12:49 PM ORGANIC SECTION TECHNICAL LEAD Pulse 93 08/01/2009 12:49 PM ORGANIC SECTION TECHNICAL LEAD Temperature 36.9 ??C (98.4 ??F) 08/01/2009 12:49 PM ORGANIC SECTION TECHNICAL LEAD C: 3 6.9 C Respiratory Rate 16 08/01/2009 12:49 PM ORGANIC SECTION TECHNICAL LEAD Oxygen Saturation - - Inhaled Oxygen Concentration - - Weight - - Height - - Body Mass Index - - documented in this encounter Progress Notes Micaela Buckner PA-C - 08/01/2009 12:01 AM CST Progress Notes signed by Micaela Buckner PA-C at 08/01/09 1313 Author: Micaela Buckner PA-C Service: (none) Author Type: Physician Drier Unloader Filed: 11/18/10 8243 Note Time: 08/01/09 0001 Status: Signed Public Health Specialist: Micaela Buckner PA-C (Resource) SUBJECTIVE: Cassidy [...] in stable condition.All questions were answered. *SH~DNS~VirPharyngitis NIC SECTION TECHNICAL LEAD documented in this encounter Plan of Treatment Not on filedocumented as of this encounter Visit Diagnoses Not on filedocumented in this encounter Care Teams Retail Service Technician Relationship Specialty Start Date End Date Leela Ruano MD PCP - General 10/31/10 [address] [place] [address] documented as of this encounter
--- OUTSIDE RECORDS SUMMARY | 2022-03-10 17:02 | XMS_ITS | Encounter Summary ---
:1985 Author Organization [employer] Address [address] [place] [address] Care Team Providers Name Role Phone Leela Ruano MD Primary Care Provider Encounter Details Date Type Department Care Team Description 01/06/2009 PN Conversion Only [facility] Leela Ruano, [address] [facility] [place] [address] [address] [facility] [address] [place] [address] (Wo rk) Social History [...] Transmitted Disease Probe (01/06/2009 3:11 PM CDT) [facility] Method Time Signature Sexually SEE TEXT HP CONVERSION Transmitted Disease Probe Comment: Patient: CASSIDY KIRKLAND Sexually Trans Disease Probe ?Collected: ??[id number] ??[id number] Source: ENDOCERV ?Processed: ??[id number] ??[id number] Final Report ------ ?[id number] ??[id number] No Chlamydia trachomatis detected by amp lified DNA assay No Neisseria gonorrhoeae detected by amp lified DNA assay The [employer] Amplified DNA assay is laila red by the FDA for non-medicolegal diagnostic testing in the adult population. Specimen (Source) Anatomical Collection Method Collection Time Re ceived Time Location / / Volume Laterality 01/06/2009 3:11 PM CDT Leela Ruano MD LAB_1 Performing Organization Address City/State/ZIP Code Phon e Number HP CONVERSION Pap Smear (01/06/2009 10:47 AM CDT) [facility] Method Time Signature PAP Smear SEE TEXT No normal HP CONVERSION Liquid Based range Comment: Patient: CASSIDY KIRKLAND ? CERVICAL CYTOLOGY REPORT Pathology # ??[id number] ?Date Obtained: ? Date Received: CYTOLOGIC IMPRESSION: [...] on filedocumented in this encounter Care Teams Photogrammetric Technician Relationship Specialty Start Date End Date Leela Ruano MD PCP - General 10/31/10 [address] [place] [address] documented as of this encounter
--- OUTSIDE RECORDS SUMMARY | 2022-03-10 17:02 | XMS_ITS | Encounter Summary ---
:1985 Author Organization [employer] Address [address] [place] [address] Care Team Providers Name Role Phone Leela Ruano MD Primary Care Provider Encounter Details Date Type Department Care Team Description 02/12/2008 Office Visit [facility] Joslyn Parra, [address] [facility] [place] [address] [facility] [phone] [place], [place] [address] Social History Tobacco Use [...] 0552 Note Time: 02/12/08 0001 Status: Signed Ham Sawyer: Joslyn Parra PA-C (Resource) NAME: CASSIDY KIRKLAND MR#: [id number] ACCT: [id number] VISIT: [id number] DICTATING CLINICIAN: JOSLYN PARRA PA-C CONFIRM #: [id number] LOC: 520 CLINIC PROGRESS NOTE DATE OF [...] immediately reseen; otherwise, follow up as needed. LAG:[id number] C: 02/12/08 11:12 CONFIRM #: [id number] documented in this encounter Plan of Treatment Not on filedocumented as of this encounter Visit Diagnoses Not on filedocumented in this encounter Care Teams Mandarin Tutor Relationship Specialty Start Date End Date Leela Ruano MD PCP - General 10/31/10 [address] [place] [address] documented as of this encounter
--- OUTSIDE RECORDS SUMMARY | 2022-03-10 17:02 | XMS_ITS | Encounter Summary ---
:1985 Author Organization [facility] Address [address] [place] [address] Care Team Providers Name Role Phone Leela Ruano MD Primary Care Provider Encounter Details Date Type Department Care Team Description 09/04/2007 Office Visit [facility] [place] [address] [address] [place] [address] [place] [address] [phone] (Wo rk) Social History Tobacco Use Types Packs/Day Years Used Date Smoking Tobacco: Never Assessed Sex Assigned at Date Recorded Not on file documented as of this encounter Progress Notes Leela Ruano MD - 09/04/2007 12:01 AM CST H&P signed by ARIANNA Pabon at 09/09/07 1907 Author: ARIANNA Pabon Service: (none) Author Type: Physician Filed: 11/18/10 0106 Note Time: 09/04/07 0001 Status: Signed Guard Range: ARIANNA Pabon (Physician) NAME: CASSIDY KIRKLAND MR#: [id number] ACCT: [id number] VISIT: [id number] DICTATING CLINICIAN: ARIANNA PABON JOB: [id number] LOC: 502 CLINIC PHYSICAL DATE OF VISIT: [...] was done. Will also check a STD [place]. ASSESSMENT: 1. Physical exam within normal limits. [...] the Adacel vaccine today. PLAN: See Assessment. GLB:[id number] C: 09/07/07 12:47 DOCUMENT: [id number] OARDING CLERK documented in this encounter Plan of Treatment Not on filedocumented as of this encounter Visit Diagnoses Not on filedocumented in this encounter Care Teams Literacy Tutor Relationship Specialty Start Date End Date Leela Ruano MD PCP - General 10/31/10 [address] [address] [place] [address] documented as of this encounter
--- OUTSIDE RECORDS SUMMARY | 2022-03-10 17:02 | XMS_ITS | Encounter Summary ---
:1985 Author Organization [email or web address] Address [address] [place] [address] Care Team Providers Name Role Phone Leela Ruano MD Primary Care Provider Reason for Visit Reason Comments Referral [facility] TSH/ Encounter Details Date Type Department Care Team Description 11/15/2021 Telephone [facility] 3800 Nurse, P3800 End Referral Endocrinology [address] [address] [address] [place] [address] Social History Tobacco Use Types Packs/Day [...] on filedocumented in this encounter Care Teams Emergency Planner Relationship Specialty Start Date End Date Leela Ruano MD PCP - General 10/31/10 [address] [place] [address] documented as of this encounter
--- OUTSIDE RECORDS SUMMARY | 2022-03-10 17:02 | XMS_ITS | Encounter Summary ---
:1985 Author Organization [facility] Address [address] [place] [address] Care Team Providers Name Role Phone Leela Ruano MD Primary Care Provider Reason for Visit Reason Comments AMENORRHEA Encounter Details Date Type Department Care Team Description 12/19/2016 Office Visit [facility] Leela Ruano, Amen orrhea (Primary Dx); [place] [address] [place] [address] [place], [place] [phone] (Wo rk) Social History Tobacco Use Types [...] Body Mass Index 23.7 09/12/2015 3:36 PM BLEACH CHLORINATOR documented in this encounter Patient Instructions Patient [...] 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 Allergies Allergen Reactions ??? Penicillins PN: Lip [...] will be 08/18/17. She would be contacting [facility] for her 1[facility] OB visit. She has checkedwith her insurance regarding coverage with this group. She will continue the vitamins. Advised avoiding or umpw-hfm-huxylfa medications at this time. She will continue [...] - 12/19/2016 4:36 PM CDT Performed at [facility], [address] [place] [address] CLIA number [id number] Leela Ruano MD LAB_1 Performing Organization Address City/State/ZIP Code Phon e Number PN SOFT [address] [place] [address] documented in this encounter Visit Diagnoses Diagnosis Amenorrhea - Primary Absence of menstruation Early stage of Amenorrhea Absence of menstruation documented in this encounter Care Teams Machine Filler Shredder Relationship Specialty Start Date End Date Leela Ruano MD PCP - General [phone] [place] [address] documented as of this encounter
--- OUTSIDE RECORDS SUMMARY | 2022-03-10 17:02 | XMS_ITS | Encounter Summary ---
:1985 Author Organization [facility] Address [address] [place] [address] Care Team Providers Name Role Phone Leela Ruano MD Primary Care Provider Encounter Details Date Type Department Care Team Description 07/17/2007 Office Visit [facility] [address] [address] [place] [address] [phone] Social History Tobacco Use Types Packs/Day Years Used Date Smoking Tobacco: Never Assessed Sex Assigned at Date Recorded Not on file documented as of this encounter Last Filed Vital Signs Vital Sign Reading Time Taken Comments Blood Pressure 128/71 07/17/2007 11:30 AM MODEL BUILDER Pulse 76 07/17/2007 11:30 AM MODEL BUILDER Temperature 36.7 ??C (98.1 ??F) 07/17/2007 11:30 AM ORAL C: 36.7 C MODEL BUILDER Respiratory Rate 2 07/17/2007 11:30 AM MODEL BUILDER Oxygen Saturation - - Inhaled Oxygen Concentration - - Weight - - Height - - Body Mass Index - - documented in this encounter Progress Notes Lina Morales MD - 07/17/2007 12:01 AM CST Progress Notes signed by Lina Morales MD at 07/19/07 0937 Author: Lina Morales MD Service: (none) Author Type: Physician Filed: 11/18/10 0002 Note Time: 07/17/07 0001 Status: Signed Rotary Derrick Operator: Lina Morales MD (Physician) NAME: CASSIDY KIRKLAND MR#: [id number] ACCT: [id number] VISIT: [id number] DICTATING CLINICIAN: LINA MORALES MD JOB: [id number] LOC: 520 CLINIC PROGRESS NOTE DATE OF [...] nausea, vomiting, diarrhea or urinary symptoms. No HAWK MISSILE SYSTEM CREWMEMBER symptoms. She did have an extensive workup [...] bedtime as a trial. She works at [employer] and one of the main reasons she came in was a work for school. She was given a note for school for today and tomorrow which was also faxed to her work place. PAMELA:[id number] C: 07/17/07 15:23 DOCUMENT: [id number] L BUILDER documented in this encounter Plan of Treatment Not on filedocumented as of this encounter Visit Diagnoses Not on filedocumented in this encounter Care Teams Room Worker Relationship Specialty Start Date End Date Leela Ruano MD PCP - General 10/31/10 [address] [place] [place] [address] documented as of this encounter
--- OUTSIDE RECORDS SUMMARY | 2022-03-10 17:02 | XMS_ITS | Encounter Summary ---
:1985 Author Organization [facility] Address [address] [place] [address] Care Team Providers Name Role Phone Leela Ruano MD Primary Care Provider Encounter Details Date Type Department Care Team Description 09/15/2015 Lab Visit [facility] Diabetes mellitus screening; [address] [facility] Lipid screening; [place] [address] Screening for thyroid disord er [phone] Social History Tobacco Use Types Packs/Day Years Used Date Smoking Tobacco: Never Assessed Sex Assigned at Date Recorded Not on file documented as of this encounter Plan of Treatment Not on filedocumented as of this encounter Procedures Procedure Name Priority Date/Time Associated Comments Diagnosis GLUCOSE Routine 09/15/2015 8:03 AM Diabetes mellitus Resu lts for this BAG SEWER screening procedure are i n the results section. THYROID STIMULATING Routine 09/15/2015 8:03 AM Screening for R esults for this HORMONE BAG SEWER thyroid disorder procedure a re in the results section. LIPID PANEL AND Routine 09/15/2015 8:03 AM Lipid screening Res ults for this DIRECT LDL(IF NEEDED) BAG SEWER proced ure are in the results section. documented in this encounter Results THYROID STIMULATING HORMONE (09/15/2015 8:03 AM BAG SEWER) P athologist Signature Thyroid 0.71 0.20 - HP CONVERSION Stimulating 4.50 Hormone uIU/mL Specimen Anatomical Collection Method Collection Time Receive d Time (Source) Location / / Volume Laterality 09/15/2015 8:03 AM 02/18/201 6 BAG SEWER 12:27 PM BAG SEWER Narrative HP CONVERSION - 09/15/2015 1:51 PM BAG SEWER Performed at [address] [address] CLIA number [id number] Leela Ruano MD LAB_1 Performing Organization Address City/[facility]/ZIP Code Phon e Number HP CONVERSION Lipid Panel and Direct LDL(If Needed) (09/15/2015 8:03 AM BAG SEWER) [facility] gist Method Time Signature Cholesterol 138 0 [...] Volume Laterality 09/15/2015 8:03 AM 6 8:03 BAG SEWER AM BAG SEWER Narrative HP CONVERSION - 09/15/2015 8:44 AM BAG SEWER Performed at [facility], [address] [place] [address] CLIA number [id number] Leela Ruano MD LAB_1 Performing Organization Address City/[facility] Phon e Number HP CONVERSION GLUCOSE (09/15/2015 8:03 AM BAG SEWER) athologist Signature Lab Glucose 100 60 - 100 HP CONVERSION mg/dL Specimen Anatomical Collection Method Collection Time Receive d Time (Source) Location / / Volume Laterality 09/15/2015 8:03 AM 6 8:03 BAG SEWER AM BAG SEWER Narrative HP CONVERSION - 09/15/2015 8:44 AM BAG SEWER Performed at [facility], [address] [place] [address] CLIA number [id number] Leela Ruano MD LAB_1 Performing Organization Address City/[facility] Phon e Number HP CONVERSION documented in this encounter Visit Diagnoses Diagnosis Diabetes mellitus screening Screening for diabetes mellitus Lipid screening Screening for lipoid disorders Screening for thyroid disorder documented in this encounter Care Teams Vertical Contour Band Saw Operator Relationship Specialty Start Date End Date Leela Ruano MD PCP - General 10/31/10 [address] [place] [address] documented as of this encounter
--- OUTSIDE RECORDS SUMMARY | 2022-03-10 17:02 | XMS_ITS | Encounter Summary ---
:1985 Author Organization [employer] Address [address] [place] [address] Care Team Providers Name Role Phone Leela Ruano MD Primary Care Provider Reason for Visit Reason Comments LAB RESULTS Encounter Details Date Type Department Care Team Description 12/19/2021 Telephone [facility] [address] Emma Branham MD LAB RESULTS Endocrinology [address] [place] [address] [place], [place] [address] [phone] Social History Tobacco Use Types Packs/Day Years [...] thyroid lab during . Emma Branham MD Turn Supervisor [facility] documented in this encounter Plan of Treatment Not on filedocumented as of this encounter Visit Diagnoses Not on filedocumented in this encounter Care Teams Area Mechanic Relationship Specialty Start Date End Date Leeal Ruano MD PCP - General 10/31/10 [address] [place] [address] documented as of this encounter
--- OUTSIDE RECORDS SUMMARY | 2022-03-10 17:02 | XMS_ITS | Encounter Summary ---
:1985 Author Organization [facility] Address [address] [place] [address] Care Team Providers Name Role Phone Leela Ruano MD Primary Care Provider Encounter Details Date Type Department Care Team Description 01/05/2009 PN Conversion Only [facility] [address] [address] [place] [address] Social History Tobacco Use Types Packs/Day Years Used Date Smoking Tobacco: Never Assessed Sex Assigned at Date Recorded Not on file documented as of this encounter Plan of Treatment Not on filedocumented as of this encounter Visit Diagnoses Not on filedocumented in this encounter Care Teams General Science Teacher Relationship Specialty Start Date End Date Leela Ruano MD PCP - General 10/31/[address] [place] [address] documented as of this encounter
--- OUTSIDE RECORDS SUMMARY | 2022-03-10 17:02 | XMS_ITS | Encounter Summary ---
:1985 Author Organization [employer] Address [address] [place] [address] Care Team Providers Name Role Phone Leela Ruano MD Primary Care Provider Encounter Details Date Type Department Care Team Description 01/12/2022 Orders Only HIM DEPARTMENT Provider, Adela [place]ington [place] [address] Social History Tobacco Use Types Packs/Day Years [...] Leela Ruano MD PCP - General 10/31/10 [address] [place] [address] documented as of this encounter
--- OUTSIDE RECORDS SUMMARY | 2022-03-10 17:02 | XMS_ITS | Encounter Summary ---
:1985 Author Organization [employer] Address [address] [place] [address] Care Team Providers Name Role Phone Leela Ruano MD Primary Care Provider Encounter Details Date Type Department Care Team Description 12/06/2021 Telemedicine [facility] [address] Emma Branham MD Low TSH level Endocrinology [address] (Primary Dx) [address] [place] [id number] [phone] Social History Tobacco Use Types Packs/Day Years [...] Branham MD - 12/06/2021 1:00 PM CDT [facility] Department of Endocrinology, Diabetes and Metabolism Clinic [...] gain what's expected for .No diarrhea. More learning and development officer the last couple of weeks. No compressive [...] 30 minutes including, but not limited to, afw-zexs-jw-face time spent reviewing records, counseling, and coordination of care. Emma Branham MD Teletray Operator [facility] documented in this encounter Plan of Treatment [...] study documented in this encounter Care Teams Health Commissioner Relationship Specialty Start Date End Date Leela Ruano MD PCP - General 10/31/10 [address] [place] [address] documented as of this encounter
--- OUTSIDE RECORDS SUMMARY | 2022-03-10 17:02 | XMS_ITS | Encounter Summary ---
:1985 Author Organization [employer] Address [address] [address] Care Team Providers Name Role Phone Leela Ruano MD Primary Care Provider Encounter Details Date Type Department Care Team Description 01/06/[address] [facility] [place] [address] [address] [place] [address] [place] [address] [phone] (Wo rk) Social History Tobacco Use Types [...] Service: (none) Author Type: Physician Filed: 11/18/10 9830 Note Time: 01/06/09 0001 Status: Signed Machine Ii Trimmer: ARIANNA Love (Resource) SUBJECTIVE: 23 year old, who comes in today for a physical. She needs to get her control pill refilled. No particular concerns. Does have some questions about the Mirena IUD.. Past Medical History: Intermittent anxiety. Tension headaches. Past Surgical History: None MEDICATIONS: Triv[place] 28. ADVERSE DRUG REACTIONS: Penicillin. RESIDENT ADVISOR History-, zero, para zero. ROS: Stable weight, regular bowel movements, regular withdrawal bleed. No vaginal discharge. Has not had much headaches recently. Sleep pattern is good..Energy levels are good. The rest of the complete review of systems negative. Family History: Parents are in good health, as well as a younger brother. 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 Has had the same boyfriend for the [...] the Mirena IUD. She will schedule with RESIDENT ADVISOR if she is interested in having this done. *SH~DNS~FEMALEPHYS documented in this encounter Plan of Treatment Not on filedocumented as of this encounter Visit Diagnoses Not on filedocumented in this encounter Care Teams Classification Officer Relationship Specialty Start Date End Date Leela Ruano MD PCP - General 10/31/10 [address] [place] [address] documented as of this encounter
--- OUTSIDE RECORDS SUMMARY | 2022-03-10 17:02 | XMS_ITS | Encounter Summary ---
:1985 [facility] Address [address] [place] [address] Care Team Providers Name Role Phone Neva Lopez MD Primary Care Provider Reason for Visit Reason Comments Other Encounter Details Date Type Department Care Team Description 09/03/2007 Telephone [facility] Mary Grace Watt [address] [place] [address] Social History Tobacco Use Types Packs/Day Years Used Date Smoking Tobacco: Never Assessed Sex Assigned at Date Recorded Not on file documented as of this encounter [facility], Message - 09/03/2007 11:07 AM CST Phone Note filed by [employer] at 11/15/10 2531 Author: [employer] Service: (none) Author Type: (none) Filed: 11/15/10 9223 Note Time: 09/03/07 1107 Status: Signed Senior Analytical Chemist: [employer] Non -Symptom Message from Front Line Caller Name/Relationship: natalya--mom Primary Scrap Dealer: Dr Lopez Message: Pt needs a note faxed to her school for her appt tomorrow asking that she be excused for her appt. attn kimi avila fax # [phone]. school needs note by 2pm today. Cleaner Industrial: Natalya Best call back number: [phone] Is it OK to leave a confidential message on this voicemail? yes *[email or web address]~[email or web address] Created on 03Sep2007 11:07am by JULIUS RUANO On 03Sep2007 12:34pm NEVA LOPEZ wrote: Note done. Please fax. Acknowledged by NEVA LOPEZ on 12:34pm On 03Sep2007 2:17pm MARY GRACE CARRERA wrote: faxed Acknowledged by MARY GRACE CARRERA on 2:17pm WAREHOUSE SPECIALIST documented in this encounter Plan of Treatment Not on filedocumented as of this encounter Visit Diagnoses Not on filedocumented in this encounter Care Teams Screw Driver Operator Relationship Specialty Start Date End Date Neva Lopez MD PCP - General 10/31/10 [address] [place] [address] documented as of this encounter
--- OUTSIDE RECORDS SUMMARY | 2022-03-10 17:02 | XMS_ITS | Encounter Summary ---
:1985 Author Organization [facility] Address [address] [place] [address] Care Team Providers Name Role Phone Leela Ruano MD Primary Care Provider Reason for Visit Reason Comments Pharyngitis Encounter Details Date Type Department Care Team Description 01/04/2017 Hospital Encounter [facility] Erica Ruiz MD Sore throat; [address] [place] [address] [place] [address] [address]vd [phone] [place], [place] [address] (Wo rk) Social History Tobacco Use Types [...] 12:00 PM CDT NAME: CASSIDY MILLIGAN MR#: [id number] CSN: [id number] AUTHENTICATING CLINICIAN: Erica Rubi MD CONFIRM #: [id number] LOC: 520 URGENT CARE PROGRESS NOTE DATE [...] a cough. PAST MEDICAL HISTORY: Reviewed through [employer]. PAST SURGICAL HISTORY: Reviewed through [employer]. MEDICATIONS: Reviewed through [employer]. ALLERGIES: Penicillin. OBJECTIVE: VITALS: Temperature 98.6, pulse [...] with the plan. ROMEL:MAICOL C: CONFIRM #: [id number] documented in this encounter Plan of Treatment [...] Culture Throat (CSS) (01/04/2017 3:18 PM CDT) [facility] gist Method Time Signature Source Throat PN SOFT Site PN SOFT Strep Screen No Group A 01/06/2017 PN SOFT Streptococcus 6:54 AM CDT Isolated Specimen (Source) Anatomical Collection Method Collection Time Re ceived Time Location / / Volume Laterality 01/04/2017 3:18 PM CDT Narrative PN SOFT - 01/06/2017 6:54 AM CDT Performed at [address] [address], CLIA Number [id number] Erica Rubi MD LAB_1 Performing Organization Address City/[facility] Phon e Number PN SOFT [address] [place] [address] Rapid Strep Group A Waived (RSAW) (01/04/2017 3:02 PM CDT) athologist Signature Strep A Negative Negative PN SOFT Antigen Strep A Source THROA: PN SOFT Specimen Anatomical Collection Method Collection Time Receive d Time (Source) Location / / Volume Laterality 01/04/2017 3:02 PM 7 4:15 CDT PM CDT Narrative PN SOFT - 01/04/2017 4:20 PM CDT Performed at [facility], [address] [place] [address] CLIA number [id number] Jack KELLER LAB_1 Performing Organization Address City/[facility] Code Phon e Number PN SOFT [address] [place] [address] documented in this encounter Visit Diagnoses Diagnosis [...] . documented in this encounter Care Teams Experimental Box Tester Relationship Specialty Start Date End Date Leela Ruano MD PCP - General 10/31/10 [address] [place] [address] documented as of this encounter
--- OUTSIDE RECORDS SUMMARY | 2022-03-10 17:02 | XMS_ITS | Encounter Summary ---
:1985 Author Organization [facility] Address [address] [place] [address] Care Team Providers Name Role Phone Leela Ruano MD Primary Care Provider Encounter Details Date Type Department Care Team Description 02/12/2008 PN Conversion Only [place] [facility] Joslyn Barreto [address] [employer] [facility] [address] [facility] [address] [place], [place] [address] Social History Tobacco Use [...] Routine(Micro If Pos) (02/12/2008 10:26 AM CDT) [facility] Method Time Signature Turbidity Cloudy (A) No [...] Specific 1.025 1.005 - 25 HP CONVERSION [place] Specimen (Source) Anatomical Collection Method Collection Time Re ceived Time Location / / Volume Laterality 02/12/2008 10:26 AM CDT Joslyn Barreto PA-C LAB_1 Performing Organization Address City/[facility] Phon e Number HP CONVERSION (ABNORMAL) Urinalysis Microscopic (02/12/2008 10:26 AM CDT) [facility] gist Method Time Signature White Blood Packed (A) 0 - 3 HP CONVERSION Cells Urine Red Blood Packed (A) 0 - 2 HP CONVERSION Cells Urine Bacteria Urine Many (A) None HP CONVERSION Specimen (Source) Anatomical Collection Method Collection Time Re ceived Time Location / / Volume Laterality 02/12/2008 10:26 AM CDT Joslyn Barreto PA-C LAB_1 Performing Organization Address City/[facility] Phon e Number HP CONVERSION documented in this encounter Visit Diagnoses Not on filedocumented in this encounter Care Teams Global Implementation Manager Relationship Specialty Start Date End Date Leela Ruano MD PCP - General 10/31/10 [address] [place] [address] documented as of this encounter
--- OUTSIDE RECORDS SUMMARY | 2022-03-10 17:02 | XMS_ITS | Encounter Summary ---
:1985 Author Organization [facility] Address [facility] [place] [address] Care Team Providers Name Role Phone Unavailable Primary Care Provider Unavailable Reason for Visit Reason Onset Date Comments Confirmation Of 12/06/2016 Encounter Details Date Type Department Care Team Description 12/06/2016 Telephone [facility] Leticia Zaidi [facility] MD [place] [address] [place], [place] [address] [address] [place], [place] [phone] (Wo rk) [address] [phone] Social History Tobacco Use Types Packs/Day Years Used Date Never Assessed Sex Assigned at Date Recorded Female 08/03/2021 2:35 PM DIAMOND POWDER TECHNICIAN documented as of this encounter Miscellaneous Notes [...] advise. Thank you, Amber Smith Central Scheduling [phone] documented in this encounter Plan of Treatment Not on filedocumented as of this encounter Visit Diagnoses Not on filedocumented in this encounter
--- OUTSIDE RECORDS SUMMARY | 2022-03-10 17:02 | XMS_ITS | Encounter Summary ---
:1985 Author Organization [employer] Address [address] [place] [address] Care Team Providers Name Role Phone Leela Ruano MD Primary Care Provider Encounter Details Date Type Department Care Team Description 10/14/2007 Office Visit [facility] [place] [id number] [place] [address] Social History Tobacco Use Types Packs/Day Years [...] 0202 Note Time: 10/14/07 0001 Status: Signed Textile Machine Operator: Elayne Awad MD (Physician) NAME: CASSIDY KIRKLAND MR#: [id number] ACCT: [id number] VISIT: [id number] DICTATING CLINICIAN: ELAYNE AWAD MD JOB: [id number] LOC: 520 CLINIC PROGRESS NOTE DATE OF [...] prescription if symptoms are not improving centrally. CAM:[id number] C: 10/14/07 20:48 DOCUMENT: [id number] documented in this encounter Plan of Treatment Not on filedocumented as of this encounter Visit Diagnoses Not on filedocumented in this encounter Care Teams Packing Attendant Relationship Specialty Start Date End Date Leela Ruano MD PCP - General 10/31/10 [address] [place] [address] documented as of this encounter
--- OUTSIDE RECORDS SUMMARY | 2022-03-10 17:02 | XMS_ITS | Encounter Summary ---
:1985 Author Organization [facility] Address [address] [place] [address] Care Team Providers Name Role Phone Leela Ruano MD Primary Care Provider Reason for Visit Reason Comments Pharyngitis CONGESTION, NASAL Encounter Details Date Type Department Care Team Description 10/13/2015 Hospital Encounter [facility], Sore throat; Care Elías S DO Streptococcal pharyngitis [address] [address] [phone] Social History Tobacco Use Types Packs/Day Years [...] Filed: 10/18/151706 Note Time: 10/16/151922 Status: Signed Office Asst: Elías Lange DO (Physician) NAME: CASSIDY MILLIGAN MR#: [id number] CSN: [id number] AUTHENTICATING CLINICIAN: Elías Lange DO CONFIRM #: [id number] LOC: 520 URGENT CARE PROGRESS NOTE DATE OF VISIT: 10/13/2015 : 1985 CHIEF COMPLAINT: This patient complains of a sore throat for the past 5-6 days with some sinus pain and pressure thatstarted last night. No fever or chills. ALLERGIES: Reviewed on check[employer]. MEDICINES: Reviewed on check24. PAST MEDICAL HISTORY: Reviewed on check24. SOCIAL HISTORY: Reviewed on check24. IMMUNIZATIONS: Reviewed on [facility]. ALLERGIES: Penicillin with lip swelling. PHYSICAL EXAM: [...] in stable condition. LSS:MEDQ C: CONFIRM #: [id number] documented in this encounter Miscellaneous Notes Medication [...] GROUP A WAIVED (10/13/2015 3:47 PM CDT) [facility] Method Time Signature Strep A Positive (A) Negative HP CONVERSION Antigen Strep A Throat: HP CONVERSION Source Specimen Anatomical Collection Method Collection Time Receive d Time (Source) Location / / Volume Laterality 10/13/2015 3:47 PM 6 7:58 CDT PM CDT Narrative HP CONVERSION - 10/13/2015 8:00 PM CDT Performed at [facility] [place] [address] [place] [id number] CLIA number [id number] Jack KELLER LAB_1 Performing Organization Address City/State/ZIP Code Phon e Number HP CONVERSION documented in this encounter Visit Diagnoses Diagnosis Sore throat Acute pharyngitis Streptococcal pharyngitis Streptococcal sore throat Triage Assessment Note - Shannon Lea, SENIOR SALES ASSISTANT - 10/13/2015 3:46 PM CDT Pt. here for sore throat x 5-6 days, sinus pain and pressure started last night. 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
--- OUTSIDE RECORDS SUMMARY | 2022-03-10 17:02 | XMS_ITS | Encounter Summary ---
:1985 Author Organization [employer] Address [address], [place] [address] Care Team Providers Name Role Phone Leela Ruano MD Primary Care Provider Reason for Visit Reason Comments Annual Exam Encounter Details Date Type Department Care Team Description 09/12/2015 Office Visit [facility] Leela Ruano [facility] woman exam with routine gynecological exam (Primary Dx); Medicine Cervical cancer screening; [address] [address] [facility] Diabetes mellitus screening; [place] [address] [place], [place] Lipid screening; [phone] [address] Screening for thyroid disorder Social History Tobacco Use Types Packs/Day Years Used Date Smoking Tobacco: Never Assessed Sex Assigned at Date Recorded Not on file documented as of this encounter Last Filed Vital Signs Vital Sign Reading Time Taken Comments Blood Pressure 120/80 09/12/2015 3:36 PM SNOWBOARD DESIGNER Pulse 74 09/12/2015 3:36 PM SNOWBOARD DESIGNER Temperature - - Respiratory Rate - - Oxygen Saturation - - Inhaled Oxygen Concentration - - Weight 62.6 kg (138 lb) 09/12/2015 3:36 PM SNOWBOARD DESIGNER Height 165.1 cm (5' 5) 09/12/2015 3:36 PM SNOWBOARD DESIGNER Body Mass Index 22.96 09/12/2015 3:36 PM SNOWBOARD DESIGNER documented in this encounter Patient Instructions Patient InstructionsFay Segovia LPN - 09/12/2015 4:11 PM CST Please return for fasting lab work. BOARD DESIGNER documented in this encounter Progress Notes Shannon Tan RN - 09/16/2015 2:59 PM SNOWBOARD DESIGNER Quick Note: Letter sent. BOARD DESIGNER Leela Ruano MD - 09/12/2015 7:00 PM CST Preventive Physical Exam: 09/12/2015 SUBJECTIVE: 30 y.o. female for a physical exam. 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 Allergies Allergen Reactions ??? Penicillins Lip swelling [...] was discharged ambulatory and in stable condition. BOARD DESIGNER documented in this encounter Miscellaneous Notes Miscellaneous - 09/05/2016 9:41 PM CSTNotes Recorded by Shannon Tan RN on 09/16/2015 at 2:59 PMLetter sent. BOARD DESIGNER Miscellaneous - 09/05/2016 9:41 PM CSTNotes Recorded by Shannon Tan RN on 09/16/2015 at 2:59 PMLetter sent. BOARD DESIGNER documented in this encounter Plan of Treatment Not on filedocumented as of this encounter Procedures Procedure Name Priority Date/Time Associated Comments Diagnosis PAP TEST ORDER Routine 09/12/2015 4:11 PM Cervical cancer Resu lts for this SNOWBOARD DESIGNER screening procedure are i n the results section. HPV WITH 16 18 Routine 09/12/2015 4:11 PM Results for this GENOTYPING, SNOWBOARD DESIGNER procedure are i n CERVICAL/ENDOCERVICA the res ults L section. ANATOMICAL PATH Routine 09/12/2015 4:11 PM Result s for this LIQUID BASED SNOWBOARD DESIGNER procedure are i n the results section. documented in this encounter Results Pap Smear (09/12/2015 4:11 PM SNOWBOARD DESIGNER) Specimen (Source) Anatomical Collection Method Collection Time Re ceived Time Location / / Volume Laterality 09/12/2015 4:11 PM SNOWBOARD DESIGNER Narrative HP CONVERSION - 09/15/2015 4:41 PM SNOWBOARD DESIGNER FINAL GYNECOLOGICAL CYTOLOGY REPORT Pathology #: [id number] ?Date Obtained: 09/12/2015 ? Date Received: 09/13/2015 [...] false-negative report s may occur. Performed at [facility], [address] [place] [address] Transcriptions 09/05/2016 9:41 PM CSTNotes Recorded by Shannon Tan RN on 09/16/2015 at 2:59 PMLetter sent. Leela Ruano MD LAB_1 Performing Organization Address City/State/ZIP Code Phon e Number HP CONVERSION HPV with 16 18 Genotyping (09/12/2015 4:11 PM SNOWBOARD DESIGNER) [facility] Method Time Signature HPV High Risk Not [...] and its pe rformance characteristics determined by [facility]. It has not been cleared or approved by [facility]. The laboratory is regulated under CLIA as qualified to perform high-complexity testing. This test is used for clinical purposes. It should not be regarded as investigational or fo r research. Specimen Anatomical Collection Method Collection Time Receive d Time (Source) Location / / Volume Laterality 09/12/2015 4:11 PM 6 4:11 SNOWBOARD DESIGNER PM SNOWBOARD DESIGNER Narrative HP CONVERSION - 09/15/2015 1:57 PM SNOWBOARD DESIGNER Performed at [facility], [facility] [place] [address] CLIA number [id number] Transcriptions 09/05/2016 9:41 PM CSTNotes Recorded by Shannon Tan RN on 09/16/2015 at 2:59 PMLetter sent. Leela Ruano MD LAB_1 Performing Organization Address City/[facility]/ZIP Code Phon e Number HP CONVERSION Pap Test Order (09/12/2015 4:11 PM SNOWBOARD DESIGNER) [facility] Method Time Signature Pap Smear Collected HP CONVERSION Monolayer tracking test Specimen Anatomical Collection Method Collection Time Receive d Time (Source) Location / / Volume Laterality 09/12/2015 4:11 PM 6 6:34 SNOWBOARD DESIGNER AM SNOWBOARD DESIGNER Leela Ruano MD LAB_1 Performing Organization Address City/[facility]/ZIP [facility] Phon e Number HP CONVERSION documented in this encounter Visit Diagnoses Diagnosis Well woman exam with routine gynecologic al exam - Primary Routine gynecological examination Cervical cancer screening Screening for malignant neoplasm of the cervix Diabetes mellitus screening Screening for diabetes mellitus Lipid screening Screening for lipoid disorders Screening for thyroid disorder documented in this encounter Care Teams Older Worker Specialist Relationship Specialty Start Date End Date Leela Ruano MD PCP - General 10/31/10 [address] [place] [address] documented as of this encounter
--- OUTSIDE RECORDS SUMMARY | 2022-03-10 17:02 | XMS_ITS | Encounter Summary ---
:1985 Author Organization [employer] Address [address] [place] [address] Care Team Providers Name Role Phone Leela Ruano MD Primary Care Provider Encounter Details Date Type Department Care Team Description 08/22/2007 Office Visit [facility] [address] [place] [address] Social History Tobacco Use Types Packs/Day Years Used Date Smoking Tobacco: Never Assessed Sex Assigned at Date Recorded Not on file documented as of this encounter Last Filed Vital Signs Vital Sign Reading Time Taken Comments Blood Pressure 126/76 08/22/2007 1:10 PM INSPECTOR METAL FABRICATING Pulse 96 08/22/2007 1:10 PM INSPECTOR METAL FABRICATING Temperature 36.7 ??C (98.1 ??F) 08/22/2007 1:10 C: 36.7 C Si multaneous PM INSPECTOR METAL FABRICATING filing. User may not have seen previo us data. Respiratory Rate 16 08/22/2007 1:10 PM INSPECTOR METAL FABRICATING Oxygen Saturation - - Inhaled Oxygen - - Concentration Weight - - Height - - Body Mass Index - - documented in this encounter Progress Notes Sandie Reagan MD - 08/22/2007 12:01 AM CST Progress Notes signed by Sandie Reagan MD at 09/22/07 1204 Author: Sandie Reagan MD Service: (none) Author Type: Physician Filed: 11/18/10 0047 Note Time: 08/22/07 0001 Status: Signed Finishing And Shipping Supervisor: Sandie Reagan MD (Physician) NAME: CASSIDY KIRKLAND MR#: [id number] ACCT: [id number] VISIT: [id number] DICTATING CLINICIAN: SANDIE REAGAN MD JOB: [id number] LOC: 520 CLINIC PROGRESS NOTE DATE OF [...] MEDICAL HISTORY: She is a smoker. MEDICATIONS: [id number] medications and . ADR/ALLERGIES: PENICILLIN. OBJECTIVE: VS: [...] be rechecked if worsening or no improvement. [id number] C: 08/23/07 16:04 DOCUMENT: [id number] ECTOR METAL FABRICATING documented in this encounter Plan of Treatment Not on filedocumented as of this encounter Visit Diagnoses Not on filedocumented in this encounter Care Teams Storm Window Installer Relationship Specialty Start Date End Date Leela Ruano MD PCP - General 10/31/10 [address] [place] [address] documented as of this encounter
--- OUTSIDE RECORDS SUMMARY | 2022-03-10 17:02 | XMS_ITS | Encounter Summary ---
:1985 Author Organization [employer] Address [address] [place] [address] Care Team Providers Name Role Phone Leela Ruano MD Primary Care Provider Encounter Details Date Type Department Care Team Description 08/23/2009 Nursing Visit [facility] Rodrí[place] [address] [place] [address] Social History Tobacco Use Types Packs/Day Years Used Date Smoking Tobacco: Never Assessed Sex Assigned at Date Recorded Not on file documented as of this encounter Plan of Treatment Not on filedocumented as of this encounter Visit Diagnoses Not on filedocumented in this encounter Care Teams Potato Spotter Relationship Specialty Start Date End Date Leela Ruano MD PCP - General 10/31/10 [address] [facility] [place] [id number] documented as of this encounter
--- OUTSIDE RECORDS SUMMARY | 2022-03-10 17:02 | XMS_ITS | Encounter Summary ---
:1985 Author Organization [employer] Address [address] [address] Care Team Providers Name Role Phone Leela Ruano MD Primary Care Provider Encounter Details Date Type Department Care Team Description 06/01/2009 Office Visit [facility] [address] [address] [place] [address] [place] [address] [phone] Social History Tobacco Use Types Packs/Day Years Used Date Smoking Tobacco: Never Assessed Sex Assigned at Date Recorded Not on file documented as of this encounter Last Filed Vital Signs Vital Sign Reading Time Taken Comments Blood Pressure 121/84 06/01/2009 11:01 AM FILM COLOR TESTER Pulse 86 06/01/2009 11:01 AM FILM COLOR TESTER Temperature 36.9 ??C (98.4 ??F) 06/01/2009 11:01 C: 36.9 C Simultaneous AM FILM COLOR TESTER filing. User may not have seen previo us data. Respiratory Rate 16 06/01/2009 11:01 AM FILM COLOR TESTER Oxygen Saturation - - Inhaled Oxygen - - Concentration Weight - - Height - - Body Mass Index - - documented in this encounter Progress Notes Juan J Meyer MD - 06/01/2009 12:01 AM CST Progress Notes signed by Juan J Meyer MD at 06/12/09 4693 Author: Juan J Meyer MD Service: (none) Author Type: Physician Filed: 11/18/10 175 Note Time: 06/01/09 0001 Status: Signed Soccer Referee: Juan J Meyer MD (Physician) NAME: CASSIDY KIRKLAND MR#: [id number] ACCT: [id number] VISIT: [id number] DICTATING CLINICIAN: Juan J Meyer MD CONFIRM #: [id number] LOC: 520 CLINIC PROGRESS NOTE DATE OF VISIT: 06/01/2009 SUBJECTIVE: 23-year-old complains of sore throat for over 7 days. Complaining of headache and strep exposure a week ago. Review of health habits indicates she is a tobacco user. She is a dehairer. OBJECTIVE: ASSESSMENT: Pharyngitis and sinusitis. PLAN: Antibiotic [...] rash. Rapid strep testing, though, is negative. [id number] C: 06/01/09 18:15 CONFIRM #: [id number] COLOR TESTER Juan J Meyer MD - 06/01/2009 12:01 AM CST Progress Notes signed by Juan J Meyer MD at 06/12/09 1346 Author: Juan J Meyer MD Service: (none) Author Type: Physician Filed: 11/18/10 175 Note Time: 06/01/09 0001 Status: Signed Soccer Referee: Juan J Meyer MD (Physician) NAME: CASSIDY KIRKLAND MR#: [id number] ACCT: [id number] VISIT: [id number] DICTATING CLINICIAN: Juan J Meyer MD CONFIRM #: [id number] LOC: 520 CLINIC PROGRESS NOTE DATE OF VISIT: 06/01/2009 SUBJECTIVE: 23-year-old complains of sore throat for over 7 days. Complaining of headache and strep exposure a week ago. Review of health habits indicates she is a tobacco user. She is a dehairer. OBJECTIVE: VS: BP: 120/84. T: 98. P: [...] sinus pain after 1 week of illness. [id number] C: 06/02/09 04:07 CONFIRM #: [id number] COLOR TESTER documented in this encounter Plan of Treatment Not on filedocumented as of this encounter Visit Diagnoses Not on filedocumented in this encounter Care Teams Ski Molder Relationship Specialty Start Date End Date Leela Ruano MD PCP - General 10/31/10 [address] [place] [address] documented as of this encounter
--- OUTSIDE RECORDS SUMMARY | 2022-03-10 17:02 | XMS_ITS | Encounter Summary ---
:1985 Author Organization [employer] Address [address], [place] [address] Care Team Providers Name Role Phone Leela Ruano MD Primary Care Provider Encounter Details Date Type Department Care Team Description 12/19/2016 Lab Visit [facility] [address] [place] [address] Social History Tobacco Use Types [...] - 12/19/2016 4:36 PM CDT Performed at [facility], [address] [facility], [place] [address] CLIA number [id number] Leela Ruano MD LAB_1 Performing Organization Address City/State/ZIP Code Phon e Number PN SOFT [address] [place] [address] documented in this encounter Visit Diagnoses Diagnosis Amenorrhea Absence of menstruation documented in this encounter Care Teams Hot Car Charger Relationship Specialty Start Date End Date Leela Ruano MD PCP - General 10/31/10 [address] [place] [address] documented as of this encounter
--- OUTSIDE RECORDS SUMMARY | 2022-03-10 17:02 | XMS_ITS | Encounter Summary ---
:1985 Author Organization [facility] Address [address] [place] [address] Care Team Providers Name Role Phone Leela Ruano MD Primary Care Provider Encounter Details Date Type Department Care Team Description 06/01/2009 PN Conversion Only [facility] [place] [address] [address] [place] [address] [place] [address] Social History Tobacco Use Types Packs/Day Years Used Date Smoking Tobacco: Never Assessed Sex Assigned at Date Recorded Not on file documented as of this encounter Plan of Treatment Not on filedocumented as of this encounter Procedures Procedure Name Priority Date/Time Associated Diagnosis Comme nts STREP GROUP A Routine 06/01/2009 1:54 PM Results for this ANTIGEN TEST RESIDENT PHYSICIAN IN RADIOLOGY procedure are i n the results section. BETA STREP FOLLOWUP Routine 06/01/2009 1:54 PM Re sults for this RESIDENT PHYSICIAN IN RADIOLOGY procedure are i n the results section. documented in this encounter Results Strep Group A Antigen Test (06/01/2009 1:54 PM RESIDENT PHYSICIAN IN RADIOLOGY) Analysis Performed At Patho logist Time Signature Strep Group A Negative Negative HP CONVERSION Antigen Test Comment: Culture to follow. Specimen (Source) Anatomical Collection Method Collection Time Re ceived Time Location / / Volume Laterality 06/01/2009 1:54 PM RESIDENT PHYSICIAN IN RADIOLOGY Juan J Meyer MD LAB_1 Performing Organization Address City/State/ZIP Code Phon e Number HP CONVERSION Beta Strep Followup (06/01/2009 1:54 PM RESIDENT PHYSICIAN IN RADIOLOGY) P athologist Signature Strep Screen SEE TEXT HP CONVERSION Comment: Patient: CASSIDY KIRKLAND Rapid Strep Follow up Culture ? Collected: ??[id number] ??[id number] Source: Throat ?Processed: ??[id number] ??[id number] ? 1V Final Report ------ ?[id number] ??0822 No beta hemolytic Strep group A isolated . Specimen (Source) Anatomical Collection Method Collection Time Re ceived Time Location / / Volume Laterality 06/01/2009 1:54 PM RESIDENT PHYSICIAN IN RADIOLOGY Juan J Meyer MD LAB_1 Performing Organization Address City/State/ZIP Code Phon e Number HP CONVERSION documented in this encounter Visit Diagnoses Not on filedocumented in this encounter Care Teams Gate Shear Operator Relationship Specialty Start Date End Date Leela Ruano MD PCP - General 10/31/[address] [place], [place] [id number] documented as of this encounter
--- OUTSIDE RECORDS SUMMARY | 2022-03-10 17:02 | XMS_ITS | Encounter Summary ---
:1985 Author Organization [employer] [facility] Address [address] [address] Care Team Providers Name Role Phone Leela Ruano MD Primary Care Provider Encounter Details Date Type Department Care Team Description 10/20/2007 Office Visit [facility] [place] [address] [address] [place] [address] (Wo rk) Social History Tobacco [...] 0306 Note Time: 10/20/07 0001 Status: Signed Digital Marketing Assistant: Ramiro De Santiago MD (Physician) NAME: CASSIDY KIRKLAND MR#: [id number] ACCT: [id number] VISIT: [id number] DICTATING CLINICIAN: RAMIRO DE SANTIAGO MD JOB: [id number] LOC: 520 CLINIC PROGRESS NOTE DATE OF [...] follow up if symptoms persist or worsen. [id number] C: 10/21/07 06:18 DOCUMENT: [id number] documented in this encounter Plan of Treatment Not on filedocumented as of this encounter Visit Diagnoses Not on filedocumented in this encounter Care Teams Tool Repairer Relationship Specialty Start Date End Date Leela Ruano MD PCP - General 10/31/10 [address] [place] [address] documented as of this encounter
--- OUTSIDE RECORDS SUMMARY | 2022-03-10 17:02 | XMS_ITS | Encounter Summary ---
:1985 Author Organization [facility] Address [address] [place] [address] Care Team Providers Name Role Phone Leela Ruano MD Primary Care Provider Encounter Details Date Type Department Care Team Description 08/01/2009 PN Conversion Only [place] CONVERSMicaela Jolley PA-C [address] [address] [place], [place] [address] (Wo rk) Social History Tobacco Use Types Packs/Day Years Used Date Smoking Tobacco: Never Assessed Sex Assigned at Date Recorded Not on file documented as of this encounter Plan of Treatment Not on filedocumented as of this encounter Procedures Procedure Name Priority Date/Time Associated Diagnosis Comme nts STREP GROUP A Routine 08/01/2009 2:33 PM Results for this ANTIGEN TEST WATER MECHANIC procedure are i n the results section. BETA STREP FOLLOWUP Routine 08/01/2009 2:33 PM Re sults for this WATER MECHANIC procedure are i n the results section. documented in this encounter Results Strep Group A Antigen Test (08/01/2009 2:33 PM WATER MECHANIC) Analysis Performed At Patho logist Time Signature Strep Group A Negative Negative HP CONVERSION Antigen Test Comment: Culture to follow. Specimen (Source) Anatomical Collection Method Collection Time Re ceived Time Location / / Volume Laterality 08/01/2009 2:33 PM WATER MECHANIC Micaela Buckner PA-C LAB_1 Performing Organization Address City/State/[facility] Phon e Number HP CONVERSION Beta Strep Followup (08/01/2009 2:33 PM WATER MECHANIC) P athologist Signature Strep Screen SEE TEXT HP CONVERSION Comment: Patient: CASSIDY KIRKLAND Rapid Strep Follow up Culture ? Collected: ??[id number] ??[id number] Source: Throat ?Processed: ??[id number] ??[id number] Final Report ------ ?[id number] ??[id number] No beta hemolytic Strep group A isolated . Specimen (Source) Anatomical Collection Method Collection Time Re ceived Time Location / / Volume Laterality 08/01/2009 2:33 PM WATER MECHANIC Micaela Buckner PA-C LAB_1 Performing Organization Address [facility] Phon e Number HP CONVERSION documented in this encounter Visit Diagnoses Not on filedocumented in this encounter Care Teams Loss Prevention Supervisor Relationship Specialty Start Date End Date Leela Ruano MD PCP - General 10/31/10 [address] [place] [id number] documented as of this encounter
--- OUTSIDE RECORDS SUMMARY | 2022-03-10 17:02 | XMS_ITS | Encounter Summary ---
:1985 Author Organization [employer] Address [address] [place] [address] Care Team Providers Name Role Phone Leela Ruano MD Primary Care Provider Encounter Details Date Type Department Care Team Description 09/04/2007 PN Conversion Only [facility] [place] [address] [facility] [address] [place] [address] [place], [place] [phone] [address] (Wo rk) Social History Tobacco Use Types Packs/Day Years Used Date Smoking Tobacco: Never Assessed Sex Assigned at Date Recorded Not on file documented as of this encounter Last Filed Vital Signs Vital Sign Reading Time Taken Comments Blood Pressure 118/74 09/04/2007 3:28 PM SENIOR WEB ENGINEER Pulse 84 09/04/2007 3:28 PM SENIOR WEB ENGINEER Temperature - - Respiratory Rate - - Oxygen Saturation - - Inhaled Oxygen Concentration - - Weight 55.8 kg (122 lb 15.9 oz) 09/04/2007 3:28 PM C: 5 5.8kg SENIOR WEB ENGINEER Height 165.1 cm (5' 5) 09/04/2007 3:28 PM C: 165.1cm SENIOR WEB ENGINEER Body Mass Index 20.47 09/04/2007 3:28 PM SENIOR WEB ENGINEER documented in this encounter Plan of Treatment Not on filedocumented as of this encounter Procedures Procedure Name Priority Date/Time Associated Diagnosis Comme nts ECG 12 [facility] Routine 09/04/2007 4:29 PM Res ults for this SENIOR WEB ENGINEER procedure are i n the results section. documented in this encounter Results ECG 12 lead clinic (09/04/2007 4:29 PM SENIOR WEB ENGINEER) Specimen (Source) Anatomical Collection Method Collection Time Re ceived Time Location / / Volume Laterality 09/04/2007 4:29 PM SENIOR WEB ENGINEER Narrative HP CONVERSION - 09/04/2007 4:29 PM SENIOR WEB ENGINEER Sinus rhythm with short WA Otherwise normal ECG No previous ECGs available Imr Conversion PN ECG ORDERABLES Performing Organization Address City/State/ZIP Code Phon e Number HP CONVERSION documented in this encounter Visit Diagnoses Not on filedocumented in this encounter Care Teams Core Shaper Top Relationship Specialty Start Date End Date Leela Ruano MD PCP - General 10/31/10 [address] [place] [address] documented as of this encounter
--- OUTSIDE RECORDS SUMMARY | 2022-03-10 17:02 | XMS_ITS | Encounter Summary ---
:1985 Author [facility] Address [address] [place] [address] Care Team Providers Name Role Phone Leela Lopez MD Primary Care Provider Reason for Visit Reason Comments Other Encounter Details Date Type Department Care Team Description 08/13/2008 Telephone [facility], Message Other [address] [place], [place] [address] Social History Tobacco Use Types Packs/Day Years Used Date Smoking Tobacco: Never Assessed Sex Assigned at Date Recorded Not on file documented as of this encounter Progress [facility], Message - 08/13/2008 9:09 AM CST Phone Note filed by [employer] at 11/16/10 3427 Author: [employer] Service: (none) Author Type: (none) Filed: 11/16/10 1428 Note Time: 08/13/08908 Status: Signed Linoleum Installer: [employer] Prescription Refill Please provide enough refills to last until patient's next visit. Comment:- Pharmacy Seq #:-[phone] [facility] Street or City:[facility] Clinician Name:Magui LOPEZ Drug Name/Strength:-[id number] Sig: [...] BARBER wrote: left message on voice mail MAKER documented in this encounter Plan of Treatment Not on filedocumented as of this encounter Visit Diagnoses Not on filedocumented in this encounter Care Teams Packaging Design Engineer Relationship Specialty Start Date End Date Leela Lopez MD PCP - General 10/31/10 [address] [place] [address] documented as of this encounter
--- OUTSIDE RECORDS SUMMARY | 2022-03-10 17:02 | XMS_ITS | Encounter Summary ---
:1985 Author Organization [employer] Address [address] [address] Care Team Providers Name Role Phone Leela Ruano MD Primary Care Provider Encounter Details Date Type Department Care Team Description 11/20/2009 Office Visit [facility] [place] [address] [address] [place] [address] Social History Tobacco Use Types [...] signed by Robert Wild MD at 11/22/09 5908 Author: Robert Wild MD Service: (none) Author Type: Physician Filed: 11/18/10 2154 Note Time: 11/20/09 0001 Status: Signed Sas Sql Developer: Robert Wild MD (Physician) NAME: CASSIDY KIRKLAND MR#: [id number] ACCT: [id number] VISIT: [id number] DICTATING CLINICIAN: Robert Wild MD CONFIRM #: [id number] LOC: 520 CLINIC PROGRESS NOTE DATE OF [...] clean 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 ADR/ALLERGIES: NOTED TO PENICILLIN. PAST MEDICAL HISTORY: [...] of the wrist was provided as well. BOR:[id number] C: 11/21/09 16:01 CONFIRM #: [id number] documented in this encounter Plan of Treatment Not on filedocumented as of this encounter Visit Diagnoses Not on filedocumented in this encounter Care Teams Washing Machine Loader Relationship Specialty Start Date End Date Leela Ruano MD PCP - General 10/31/10 [address] [address] [place] [address] documented as of this encounter
--- OUTSIDE RECORDS SUMMARY | 2022-03-10 17:02 | XMS_ITS | Encounter Summary ---
:1985 Author Organization [facility] Address [address] [place] [address] Care Team Providers Name Role Phone Leela Ruano MD Primary Care Provider Encounter Details Date Type Department Care Team Description 09/04/2007 PN Conversion Only [place] CONVERSIO N Leela Ruano, [address] [facility] [place] [address] [facility] [place] [address] (Wo rk) Social History Tobacco Use Types Packs/Day Years Used Date Smoking Tobacco: Never Assessed Sex Assigned at Date Recorded Not on file documented as of this encounter Plan of Treatment Not on filedocumented as of this encounter Procedures Procedure Name Priority Date/Time Associated Comments Diagnosis SEXUALLY TRANSMITTED Routine 09/04/2007 4:31 PM R esults for this DISEASE PROBE FLIGHT OPERATIONS INSPECTOR procedure are in the results section. THYROID STIMULATING Routine 09/04/2007 4:29 PM Re sults for this HORMONE FLIGHT OPERATIONS INSPECTOR procedure are i n the results section. HEMOGLOBIN, BLOOD Routine 09/04/2007 4:29 PM Resu lts for this FLIGHT OPERATIONS INSPECTOR procedure are i n the results section. ANATOMICAL PATH Routine 09/04/2007 8:43 AM Result s for this LIQUID BASED FLIGHT OPERATIONS INSPECTOR procedure are i n the results section. documented in this encounter Results Sexually Transmitted Disease Probe (09/04/2007 4:31 PM FLIGHT OPERATIONS INSPECTOR) [facility] Method Time Signature Sexually SEE TEXT HP CONVERSION Transmitted Disease Probe Comment: Patient: CASSIDY KIRKLAND Sexually Trans Disease Probe ?Collected: ??[id number] ??1631 Source: ENDOCERV ?Processed: ??[id number] ??1631 ? 1V Final Report ------ ?[id number] ??1147 No Chlamydia trachomatis detected by amp lified DNA assay No Neisseria gonorrhoeae detected by amp lified DNA assay The Probetec Amplified DNA assay is laila red by the FDA for non-medicolegal diagnostic testing in the adult population. Specimen (Source) Anatomical Collection Method Collection Time Re ceived Time Location / / Volume Laterality 09/04/2007 4:31 PM FLIGHT OPERATIONS INSPECTOR Leela Ruano MD LAB_1 Performing Organization Address City/[facility] Code Phon e Number HP CONVERSION Thyroid Stimulating Hormone (09/04/2007 4:29 PM FLIGHT OPERATIONS INSPECTOR) athologist Signature Thyroid 0.46 0.20 - HP CONVERSION Stimulating 4.50 Hormone uIU/mL Specimen (Source) Anatomical Collection Method Collection Time Re ceived Time Location / / Volume Laterality 09/04/2007 4:29 PM FLIGHT OPERATIONS INSPECTOR Leela Ruano MD LAB_1 Performing Organization Address [facility]/ZIP Code Phon e Number HP CONVERSION Hemoglobin, Blood (09/04/2007 4:29 PM FLIGHT OPERATIONS INSPECTOR) P athologist Signature Hemoglobin 15.1 11.8 - 15.5 HP CONVERSION gm/dL Specimen (Source) Anatomical Collection Method Collection Time Re ceived Time Location / / Volume Laterality 09/04/2007 4:29 PM FLIGHT OPERATIONS INSPECTOR Leela Ruano MD LAB_1 Performing Organization Address City/State/ZIP Code Phon e Number HP CONVERSION Pap Smear (09/04/2007 8:43 AM FLIGHT OPERATIONS INSPECTOR) Patholo gist Method Time Signature PAP Smear SEE TEXT No normal HP CONVERSION Liquid Based range Comment: Patient: CASSIDY KIRKLAND ? CERVICAL CYTOLOGY REPORT Pathology # ??[id number] ?Date Obtained: ? Date Received: CYTOLOGIC IMPRESSION: Negative for intraepithelial lesion or m alignancy. Verified 09/08/07 by: ? (electronic signature) ? FASHIN TIONAL DATA LMP: CLINICAL HIST LIQUID BASED PAP CERVICAL SPECIMEN ADEQUACY: ?? Satisfactory. ENDOCERVICAL CELLS: ??Absent. Specimen (Source) Anatomical Collection Method Collection Time Re ceived Time Location / / Volume Laterality 09/04/2007 8:43 AM FLIGHT OPERATIONS INSPECTOR Leela Ruano MD LAB_1 Performing Organization Address City/State/ZIP Code Phon e Number HP CONVERSION documented in this encounter Visit Diagnoses Not on filedocumented in this encounter Care Teams District Court Reporter Relationship Specialty Start Date End Date Leela Ruano MD PCP - General 10/31/10 [address] [address] [place] [address] documented as of this encounter
--- OUTSIDE RECORDS SUMMARY | 2022-03-10 17:02 | XMS_ITS | Encounter Summary ---
:1985 Author Organization [employer] Address [address] [place] [address] Care Team Providers Name Role Phone Leela Ruano MD Primary Care Provider Reason for Visit Reason Comments Orders Needed Encounter Details Date Type Department Care Team Description 12/06/[address] [facility] [address] Emma Branham MD Orders Needed Endocrinology [address] [place] [address] [place], [place] [address] [phone] Social History Tobacco Use Types Packs/Day Years [...] 2:37 PM CDT Faxed lab orders to [facility]. [phone] Fax: documented in this encounter Plan of Treatment Not on filedocumented as of this encounter Visit Diagnoses Not on filedocumented in this encounter Care Teams Packaging Mechanic Relationship Specialty Start Date End Date Leela Ruano MD PCP - General 10/31/10 [address] [place] [address] documented as of this encounter
--- OUTSIDE RECORDS SUMMARY | 2022-03-10 17:02 | XMS_ITS | Encounter Summary ---
:1985 Author Organization [facility] Address [address] [place] [address] Care Team Providers Name Role Phone Leela Ruano MD Primary Care Provider Encounter Details Date Type Department Care Team Description 08/22/2007 PN Conversion Only [place] CONVERSIO Sandie Frankel, [address] [facility] [place] [address] Social History Tobacco Use Types Packs/Day Years Used Date Smoking Tobacco: Never Assessed Sex Assigned at Date Recorded Not on file documented as of this encounter Plan of Treatment Not on filedocumented as of this encounter Procedures Procedure Name Priority Date/Time Associated Diagnosis Comme nts STREP GROUP A Routine 08/22/2007 4:56 PM Results for this ANTIGEN TEST GATE CUTTER procedure are i n the results section. BETA STREP FOLLOWUP Routine 08/22/2007 4:56 PM Re sults for this GATE CUTTER procedure are i n the results section. documented in this encounter Results Strep Group A Antigen Test (08/22/2007 4:56 PM GATE CUTTER) Analysis Performed At Patho logist Time Signature Strep Group A Negative Negative HP CONVERSION Antigen Test Comment: Culture to follow. Specimen (Source) Anatomical Collection Method Collection Time Re ceived Time Location / / Volume Laterality 08/22/2007 4:56 PM GATE CUTTER Sandie Carrillo MD LAB_1 Performing Organization Address City/State/ZIP Code Phon e Number HP CONVERSION Beta Strep Followup (08/22/2007 4:56 PM GATE CUTTER) P athologist Signature Strep Screen SEE TEXT HP CONVERSION Comment: Patient: CASSIDY KIRKLAND Rapid Strep Follow up Culture ? Collected: ?1655 Source: Throat ?Processed: ?170 ? 1V Final Report ------ ?0943 No beta hemolytic Strep group A isolated . Specimen (Source) Anatomical Collection Method Collection Time Re ceived Time Location / / Volume Laterality 08/22/2007 4:56 PM GATE CUTTER Sandie Carrillo MD LAB_1 Performing Organization Address City/State/ZIP Code Phon e Number HP CONVERSION documented in this encounter Visit Diagnoses Not on filedocumented in this encounter Care Teams Senior Software Engineer Analytics Relationship Specialty Start Date End Date Leela Ruano MD PCP - General 10/31/10 [address] [address] [place] [address] documented as of this encounter
--- OUTSIDE RECORDS SUMMARY | 2022-03-10 17:02 | XMS_ITS | Clinical Summary ---
:1985 Author Organization [facility] Address [address] [place] [address] Care Team Providers Name Role Phone Leela [...] for each transition of care or referral. [employer] Allergies Active Allergy Reactions Severity Noted Date Comments Penicillins Medium 06/02/2003 PN: Lip swellin g Medications No known medications Active Problems Problem Noted Date Tension headache 11/28/2003 Overview: LW Onset: [id number] ; Headache Tension [place] Comments Yes Resolved Problems Problem Noted Date Resolved Date Other acne 06/04/2003 10/17/2004 Overview: LW Onset: 29Urh80 ; Acne Vulgaris Encounters Date Type Specialty [...] 165.1 cm (5' 5) 09/12/2015 3:36 PM TECHNICAL SOURCING RECRUITER Body Mass Index 23.7 09/12/2015 3:36 PM TECHNICAL SOURCING RECRUITER Plan of Treatment Health Maintenance Due Date [...] Phone Address Type / Group ADAM MEDINA [id number] [employer] [phone] Gov ernment t [employer] CLAIMS [address] [address] [place] [address] BCBS BCBS CCS BLUE [id number] [employer] [address] [address] [place] [address] Care Teams Population Health Manager Relationship Specialty Start Date End Date Leela Ruano MD PCP - General 10/31/[address] [place] [address]
--- OUTSIDE RECORDS SUMMARY | 2022-03-10 17:02 | XMS_ITS | Encounter Summary ---
:1985 Author Organization [facility] Address [address] [place] [address] Care Team Providers Name Role Phone Leela Ruano MD Primary Care Provider Reason for Visit Reason Onset Date Comments Fax 01/25/2017 last PAP Encounter Details Date Type Department Care Team Description 01/25/2017 Telephone [facility] Leela Gomes MD Fax (last PAP) [address] [place] [address] [place] [address] [phone] (Wo rk) Social History Tobacco Use Types [...] 01/25/2017 8:59 AM CDT Results faxed to [phone] Fay Gerber, RN - 01/25/2017 8:43 AM CDT Reason for Call: FAX to DA for VIKRAM Next Steps: Route to Superintendent Drivers (DA) pool. Additional Information: Marcie from school age program teacher of [place] is faxing over a VIKRAM to have the patients most recent PAP results faxed to them. Patient is there for an OB appointment. Their fax # isincluded. Last PAP: 09/12/15. Contact# Marcie- school age program teacher [place] (Other) [phone] documented in this encounter Plan of Treatment Not on filedocumented as of this encounter Visit Diagnoses Not on filedocumented in this encounter Care Teams Rn Procedure Relationship Specialty Start Date End Date Leela Ruano MD PCP - General 10/31/10 [address] [place] [address] documented as of this encounter
--- OUTSIDE RECORDS SUMMARY | 2022-03-10 17:03 | XMS_ITS | Encounter Summary ---
:1985 Author Organization [facility] Address [address] [place] [address] Care Team Providers Name Role Phone Leela Ruano MD Primary Care Provider Encounter Details Date Type Department Care Team Description 08/16/2004 PN Conversion Only [place] CONVERSIO N Leela Ruano, [address] [facility] [place] [address] [facility] [address] [place] [address] (Wo rk) Social History Tobacco Use Types Packs/Day Years Used Date Smoking Tobacco: Never Assessed Sex Assigned at Date Recorded Not on file documented as of this encounter Plan of Treatment Not on filedocumented as of this encounter Procedures Procedure Name Priority Date/Time Associated Comments Diagnosis SEXUALLY TRANSMITTED Routine 08/16/2004 2:15 PM R esults for this DISEASE PROBE TIE IN HAND procedure are in the results section. THYROID STIMULATING Routine 08/16/2004 1:26 PM Re sults for this HORMONE TIE IN HAND procedure are i n the results section. HEMOGLOBIN, BLOOD Routine 08/16/2004 1:26 PM Resu lts for this TIE IN HAND procedure are i n the results section. ANATOMICAL PATH Routine 08/16/2004 7:25 AM Result s for this LIQUID BASED TIE IN HAND procedure are i n the results section. documented in this encounter Results Sexually Transmitted Disease Probe (08/16/2004 2:15 PM TIE IN HAND) [facility] Method Time Signature Sexually SEE TEXT HP CONVERSION Transmitted Disease Probe Comment: Patient: CASSIDY KIRKLAND Sexually Trans Disease Probe @ ?Collected: ??[id number] ??1415 Source: ENDOCERV ?Processed: ??[id number] ??1415 ? V Final Report ------ ?[id number] ??1318 No Chlamydia trachomatis detected by amp lified DNA assay No Neisseria gonorrhoeae detected by amp lified DNA assay @ = Sexually Trans Disease Probe Perform ed at ??[address] [facility] [place] [address] Specimen (Source) Anatomical Collection Method Collection Time Re ceived Time Location / / Volume Laterality 08/16/2004 2:15 PM TIE IN HAND Leela Ruano MD LAB_1 Performing Organization Address City/[facility] Phon e Number HP CONVERSION Thyroid Stimulating Hormone (08/16/2004 1:26 PM TIE IN HAND) athologist Signature Thyroid 0.62 0.20 - HP CONVERSION Stimulating 5.50 Hormone uIU/mL Specimen (Source) Anatomical Collection Method Collection Time Re ceived Time Location / / Volume Laterality 08/16/2004 1:26 PM TIE IN HAND Leela Ruano MD LAB_1 Performing Organization Address [facility]/ZIP Code Phon e Number HP CONVERSION Hemoglobin, Blood (08/16/2004 1:26 PM TIE IN HAND) P athologist Signature Hemoglobin 15.4 11.8 - 15.5 HP CONVERSION gm/dL Specimen (Source) Anatomical Collection Method Collection Time Re ceived Time Location / / Volume Laterality 08/16/2004 1:26 PM TIE IN HAND Leela Ruano MD LAB_1 Performing Organization Address [facility] Code Phon e Number HP CONVERSION Pap Smear (08/16/2004 7:25 AM TIE IN HAND) Patholo gist Method Time Signature PAP Smear SEE TEXT No normal HP CONVERSION Liquid Based range Comment: Patient: CASSIDY KIRKLAND ? CERVICAL CYTOLOGY REPORT Pathology # ??[id number] ?Date Obtained: ? Date Received: CYTOLOGIC IMPRESSION: Negative for intraepithelial lesion or m alignancy. Fungal organisms identified. ? AFSHIN TIONAL DATA LMP: CLINICAL HIST ? 08-06-04 LIQUID BASED PAP CERVICAL SPECIMEN ADEQUACY: ?? Satisfactory. ENDOCERVICAL CELLS: ??Absent. Verified 08/22/04 by: ??LBM ?(electronic signature) Specimen (Source) Anatomical Collection Method Collection Time Re ceived Time Location / / Volume Laterality 08/16/2004 7:25 AM TIE IN HAND Leela Ruano MD LAB_1 Performing Organization Address City/[facility] Code Phon e Number HP CONVERSION documented in this encounter Visit Diagnoses Not on filedocumented in this encounter Care Teams Assistant Site Manager Relationship Specialty Start Date End Date Leela Ruano MD PCP - General 10/31/10 [address] [address] [place] [address] documented as of this encounter
--- OUTSIDE RECORDS SUMMARY | 2022-03-10 17:03 | XMS_ITS | Encounter Summary ---
:1985 Author Organization [facility] Address [address] [place] [address] Care Team Providers Name Role Phone Leela Ruano MD Primary Care Provider Reason for Visit Reason Comments Other Encounter Details Date Type Department Care Team Description 04/16/2007 Telephone [facility] [place], [place] Other [address] [place] [address] Social History Tobacco Use Types Packs/Day Years Used Date Smoking Tobacco: Never Assessed Sex Assigned at Date Recorded Not on file documented as of this encounter [facility], Message - 04/16/2007 12:27 PM CDT Phone Note filed by Kluster at 11/15/10425 Author: Kluster Service: (none) Author Type: (none) Filed: 11/15/10425 Note Time: 04/16/07 1227 Status: Signed Quality Assurance Specialist: Kluster Form Tracking Caller Name/Relationship: Cassidy Primary Inspector Wire Rope: Gary Type of form (i.e. school,camp)? note for 5 day leave Please fax for Brianna Kam @ [facility] [employer]. Date needed: 04/16 Mail/Pickup/ Contact: Cassidy Keith call back number: [phone] cell Is it ok to leave a confidential message on this voicemail? yes Have you signed a consent form for release of this information? *[email or web address] Created on 16Apr2007 12:27pm by PARKER SCHWAB On 16Apr2007 12:29pm JOHN AGLLARDO wrote: Pt called and requested she be called when fax is sent. She can be reached at [phone] On 16Apr2007 1:28pm MIGUEL MUÑIZ wrote: Can [...] and she has an appt. at the [facility] scheduled. Fax # info above. On 16Apr2007 6:39pm MIGUEL MUÑIZ wrote: Please fax the note to above number. Thanks. Acknowledged by MIGUEL MUÑIZ on 6:39pm On 17Apr2007 8:33am GURJIT ODEN wrote: Letter faxed and message left on pts. voice mail. Acknowledged by GURJIT ODEN on 8:33am ERTY WORKER documented in this encounter Plan of Treatment Not on filedocumented as of this encounter Visit Diagnoses Not on filedocumented in this encounter Care Teams Custom Designer Relationship Specialty Start Date End Date Leela Ruano MD PCP - General 10/31/10 [address] [address] [place] [address] documented as of this encounter
--- OUTSIDE RECORDS SUMMARY | 2022-03-10 17:03 | XMS_ITS | Encounter Summary ---
:1985 Author Organization [employer] Address [address] [place] [address] Care Team Providers Name Role Phone Leela Ruano MD Primary Care Provider Encounter Details Date Type Department Care Team Description 04/03/2007 Office Visit [facility] [place], [address] [facility] [place] [address] [facility] [phone] [place] [address] (Wo rk) Social History Tobacco [...] 11/17/10 2148 Note Time: 04/03/072010 Status: Signed Grain Wafer Machine Operator: Jacky Francis MD (Physician) NAME: CASSIDY KIRKLAND MR#: [id number] ACCT: [id number] VISIT: [id number] DICTATING CLINICIAN: SANTIAGO FRANCIS MD JOB: [id number] LOC: 520 CLINIC PROGRESS NOTE DATE OF [...] she can return; otherwise follow up p.r.n. LW:[id number] C: 04/03/07 13:13 DOCUMENT: [id number] documented in this encounter Plan of Treatment Not on filedocumented as of this encounter Visit Diagnoses Not on filedocumented in this encounter Care Teams Treasury Management Sales Consultant Relationship Specialty Start Date End Date Leela Ruano MD PCP - General 10/31/10 [address] [address] [place] [address] documented as of this encounter
--- OUTSIDE RECORDS SUMMARY | 2022-03-10 17:03 | XMS_ITS | Encounter Summary ---
:1985 Author Organization [employer] Address [address] [address] Care Team Providers Name Role Phone Leela Ruano MD Primary Care Provider Encounter Details Date Type Department Care Team Description 03/29/2005 Office Visit [facility] Debbie Asencio MD [place] [id number] [place] [address] [phone] Social History Tobacco Use Types Packs/Day Years [...] CDT Progress Notes signed by at 05/04/05 3086 Author: Yane Feliciano MD Service: (none) Author Type: (none) Filed: 11/17/10 0711 Note Time: 03/29/05 0001 Status: Signed Tower Truck Driver: Trung Conversion NAME: CASSIDY KIRKLAND MR: [id number] ACCT: [id number] VISIT: [id number] DICTATING CLINICIAN: YANE FELICIANO MD JOB: [id number] CLINIC PROGRESS NOTE DATE OF VISIT: 03/29/2005 [...] benefits, risks and side effects of medications. LCM:[id number] C: 03/30/05 13:53 DOCUMENT: [id number] AGE TRUCK DISPATCHER documented in this encounter Plan of Treatment Not on filedocumented as of this encounter Visit Diagnoses Not on filedocumented in this encounter Care Teams Boating Safety Officer Relationship Specialty Start Date End Date Leela Ruano MD PCP - General 10/31/10 [address] [address] [place] [address] documented as of this encounter
--- OUTSIDE RECORDS SUMMARY | 2022-03-10 17:03 | XMS_ITS | Encounter Summary ---
:1985 Author [facility] Address [address], [place] [address] Care Team Providers Name Role Phone Leela Ruano MD Primary Care Provider Encounter Details Date Type Department Care Team Description 04/14/2007 Office Visit [facility] Lis Clements, [address] [facility] [place] [address] [facility] [phone] [place], [place] [address] (Wo rk) Social History [...] 2202 Note Time: 04/14/07 0001 Status: Signed Cloth Examiner Hand: Lis Ro MD (Physician) NAME: CASSIDY KIRKLAND MR#: [id number] ACCT: [id number] VISIT: [id number] DICTATING CLINICIAN: Lis Ro MD JOB: [id number] LOC: 502 CLINIC PROGRESS NOTE DATE OF [...] next month or so. PLAN: See assessment. [facility]:[id number] C: 04/15/07 09:19 DOCUMENT: [id number] documented in this encounter Plan of Treatment Not on filedocumented as of this encounter Visit Diagnoses Not on filedocumented in this encounter Care Teams Psych Sales Specialist Relationship Specialty Start Date End Date Leela Ruano MD PCP - General 10/31/10 [address] [address] [place] [address] documented as of this encounter
--- OUTSIDE RECORDS SUMMARY | 2022-03-10 17:03 | XMS_ITS | Encounter Summary ---
:1985 [facility] Address [address] [place] [address] Care Team Providers Name Role Phone Leela Ruano MD Primary Care Provider Reason for Visit Reason Comments Other Encounter Details Date Type Department Care Team Description 04/11/2007 Telephone [facility] Yane Dailey MD Other [address] [address] [place] [address] [place] [address] [phone] (Wo rk) Social History Tobacco Use Types Packs/Day Years Used Date Smoking Tobacco: Never Assessed Sex Assigned at Date Recorded Not on file documented as of this encounter Progress Notes Conversion, [facility] - 04/11/2007 11:09 AM CDT Phone Note filed by [facility] Conversion at 11/15/10406 Author: Trung Conversion Service: (none) Author Type: (none) Filed: 11/15/10406 Note Time: 04/11/071108 Status: Signed Power Engineer: Trung Nguyen Front Line Sx Call Caller Name/Relationship:Cassidy Primary Workers Compensation Analyst:Bindu Symptom or request?stomach pain/ work in Is appointment scheduled & when? Departmental Buyer:Pt Best call back number:[phone] Is it OK to leave a confidential message on this voicemail? *ECODE~PNSX2 Created on 11Apr2007 11:09am by AYDEN ROSE On 11Apr2007 11:24am LIZ THOMAS wrote: Pt has appt 04-14-07 with for follow up [facility]. Pt knows to go to [facility] if needed before appt. Acknowledged by YANE FELICIANO on 12:09pm PAPER INSTALLER documented in this encounter Plan of Treatment Not on filedocumented as of this encounter Visit Diagnoses Not on filedocumented in this encounter Care Teams Vegetable Tier Relationship Specialty Start Date End Date Leela Ruano MD PCP - General 10/31/10 [address] [address] [place] [address] documented as of this encounter
--- OUTSIDE RECORDS SUMMARY | 2022-03-10 17:03 | XMS_ITS | Encounter Summary ---
:1985 Author Organization [facility] Address [address] [place] [address] Care Team Providers Name Role Phone Leela Ruano MD Primary Care Provider Reason for Visit Reason Comments Other Encounter Details Date Type Department Care Team Description 04/14/2007 Telephone Specialty Center 6500 Lavern Leone Other Gastroenterology 6500 [facility] [place] [place] [address] Social History Tobacco Use Types Packs/Day Years Used Date Smoking Tobacco: Never Assessed Sex Assigned at Date Recorded Not on file documented as of this encounter Progress Notes Lavern Leone - 04/14/2007 4:37 PM CDT Phone Note filed by Lavern Leone RN at 11/15/108 Author: Lavern Leone RN Service: (none) Author Type: (none) Filed: 11/15/10 0418 Note Time: 04/14/07 1637 Status: Signed Environmental Safety Specialist: Trung Nguyen pre-assessment completed for endoscopic procedure. Created on 14Apr2007 4:37pm by LAVERN LEONE TION CLASSIFIER documented in this encounter Plan of Treatment Not on filedocumented as of this encounter Visit Diagnoses Not on filedocumented in this encounter Care Teams Drafter (Cad) Electrical Relationship Specialty Start Date End Date Leela Ruano MD PCP - General 10/31/10 [address] [place] [address] documented as of this encounter
--- OUTSIDE RECORDS SUMMARY | 2022-03-10 17:03 | XMS_ITS | Encounter Summary ---
:1985 Author Organization [facility] Address [address] [place] [address] Care Team Providers Name Role Phone Leela Ruano MD Primary Care Provider Encounter Details Date Type Department Care Team Description 01/10/2006 PN Conversion Only [place] CONVERSIO N Leela Ruano, [address] [place] [address] [facility] [place] [address] (Wo rk) Social History Tobacco [...] on filedocumented in this encounter Care Teams Bus Dispatcher Interstate Relationship Specialty Start Date End Date Leela Ruano MD PCP - General 10/31/10 [address] [place] [address] documented as of this encounter
--- OUTSIDE RECORDS SUMMARY | 2022-03-10 17:03 | XMS_ITS | Encounter Summary ---
:1985 Author [facility] Address [address] [place] [address] Care Team Providers Name Role Phone Leela Ruano MD Primary Care Provider Reason for Visit Reason Comments Other Encounter Details Date Type Department Care Team Description 04/18/2007 Telephone [facility], Message Other [address] [place] [address] Social History Tobacco Use Types Packs/Day Years Used Date Smoking Tobacco: Never Assessed Sex Assigned at Date Recorded Not on file documented as of this encounter Progress Notes Center, Message - 04/18/2007 11:09 AM CDT Phone Note filed by [employer] at 11/15/10 8290 Author: [employer] Service: (none) Author Type: (none) Filed: 11/15/10435 Note Time: 04/18/07 1109 Status: Signed Belt Conveyor Drier: [employer] Non -Symptom Message from Front Line Caller Name/Relationship:Cassidy Primary Radio Electrician: Rocio Message: Please see previous note fax absence note to [employer] [facility]... their fax number is [phone] - the school said they didn't get it... call pt when done. Animal Caretaker: Cassidy Best call back number: [phone] Is it OK to leave a confidential message on this voicemail? yes *[id number] Created on 18Apr2007 11:09am by CARINA DELUCA On 18Apr2007 11:23am MARSHAL FLOWERS wrote: refaxed.called pt back and informed her that we refaxed it. she wants to come and meat pickler a copy as well. BINDER documented in this encounter Plan of Treatment Not on filedocumented as of this encounter Visit Diagnoses Not on filedocumented in this encounter Care Teams Electroplating Worker Relationship Specialty Start Date End Date Leela Ruano MD PCP - General 10/31/10 [address] [place] [address] documented as of this encounter
--- OUTSIDE RECORDS SUMMARY | 2022-03-10 17:03 | XMS_ITS | Encounter Summary ---
:1985 Author Organization [employer] Address [address] [place] [address] Care Team Providers Name Role Phone Unassigned, Provider Primary Care Provider Unavailable Encounter Details Date Type Department Care Team Description 04/22/2007 Hospital Encounter Specialty Center 6500 Casa Reyes MD [address] [place], [place] [id number] Endoscopy Casa Reyes MD [address] [place], [place] [address] [facility] [place], [place] [address] Social History Tobacco Use Types Packs/Day Years [...] 2212 Note Time: 04/22/07 1335 Status: Signed Director Pediatric: Casa Reyes MD (Physician) Patient Name: Cassidy [...] Return to primary care physician. CPT4 Code(s): 59785, Upper gastrointestinal endoscopy including esophagus, stomach, and either the duodenum and/or jejunum as appropriate; diagnostic, with or without collection of specimen(s) by brushing or washing (separate procedure) ICD9 Code(s): 536.8, Dyspepsia and other specified disorders of function of stomach The codes documented in this report are preliminary and upon surgical coder review may be revised to meet current compliance requirements. Casa Reyes MD Signed Date: 04/22/2007 02:29:28 PM Number of Addenda: 0 This document has been electronically signed. Note generated on 04/22/2007 1:36:23 PM documented in this encounter Plan of Treatment Not on filedocumented as of this encounter Visit Diagnoses Not on filedocumented in this encounter Care Teams Billboard Mechanic Relationship Specialty Start Date End Date Unassigned, Provider PCP - General 12/02/01 10/30/[address] [place] [address] documented as of this encounter
--- OUTSIDE RECORDS SUMMARY | 2022-03-10 17:03 | XMS_ITS | Encounter Summary ---
:1985 Author [facility] Address [address], [place] [address] Care Team Providers Name Role Phone Leela Ruano MD Primary Care Provider Reason for Visit Reason Comments Other Encounter Details Date Type Department Care Team Description 12/18/2005 Telephone [facility], Message Other [address] [place], [place] [address] Social History Tobacco Use Types Packs/Day Years Used Date Smoking Tobacco: Never Assessed Sex Assigned at Date Recorded Not on file documented as of this encounter Progress Notes Center, Message - 12/18/2005 10:12 AM CDT Phone Note filed by [employer] at 11/14/10420 Author: [employer] Service: (none) Author Type: (none) Filed: 11/14/10420 Note Time: 12/18/05 1012 Status: Signed Ethanol Quality Leader: [employer] PRESCRIPTION REFILL: Please provide enough refills to last until patient's next visit. Comment:- [facility] Clinician Name:-Bindu Drug Name/Strength:-Triphasil 28 Sig:-Take [...] BARBER wrote: left message on voice mail. SUPERVISOR documented in this encounter Plan of Treatment Not on filedocumented as of this encounter Visit Diagnoses Not on filedocumented in this encounter Care Teams Windows Desktop Engineer Relationship Specialty Start Date End Date Leela Ruano MD PCP - General 10/31/10 [address] [place] [address] documented as of this encounter
--- OUTSIDE RECORDS SUMMARY | 2022-03-10 17:03 | XMS_ITS | Encounter Summary ---
:1985 Author Organization [employer] Address [address] [address] Care Team Providers Name Role Phone Leela Ruano MD Primary Care Provider Encounter Details Date Type Department Care Team Description 05/29/2007 Office Visit [facility] [place] [address] [address] [place] [address] Social History Tobacco Use Types [...] signed by Chuck Erwin MD at 06/30/07 7885 Author: Chuck Erwin MD Service: (none) Author Type: Physician Filed: 11/17/10 2301 Note Time: 05/29/07 0001 Status: Signed Recyclable Products Sorter: Chuck Erwin MD (Physician) NAME: CASSIDY KIRKLAND MR#: [id number] ACCT: [id number] VISIT: [id number] DICTATING CLINICIAN: CHUCK ERWIN MD JOB: [id number] LOC: 520 CLINIC PROGRESS NOTE DATE OF VISIT: 05/29/2007 SUBJECTIVE: Patient apparently goes to [employer], and she needs a note for school. [...] right away if any recurrence of symptoms. [id number] C: 05/30/07 11:57 DOCUMENT: [id number] MODEL MAKER documented in this encounter Plan of Treatment Not on filedocumented as of this encounter Visit Diagnoses Not on filedocumented in this encounter Care Teams Physical Ther Relationship Specialty Start Date End Date Leela Ruano MD PCP - General 10/31/10 [address] [place] [address] documented as of this encounter
--- OUTSIDE RECORDS SUMMARY | 2022-03-10 17:03 | XMS_ITS | Encounter Summary ---
:1985 Author Organization [employer] Address [address] [address] Care Team Providers Name Role Phone Leela Ruano MD Primary Care Provider Encounter Details Date Type Department Care Team Description 06/05/2006 Office Visit [facility] Alne Mccall PA-C [address] [facility] [address] [place] [address] [place] [address] [phone] (Wo rk) Social History Tobacco Use Types Packs/Day Years Used Date Smoking Tobacco: Never Assessed Sex Assigned at Date Recorded Not on file documented as of this encounter Last Filed Vital Signs Vital Sign Reading Time Taken Comments Blood Pressure 141/77 06/05/2006 11:12 AM MAILROOM PERSONNEL Pulse 86 06/05/2006 11:12 AM MAILROOM PERSONNEL Temperature 36.7 ??C (98.1 ??F) 06/05/2006 11:12 AM MAILROOM PERSONNEL C: 3 6.7 C Respiratory Rate 16 06/05/2006 11:12 AM MAILROOM PERSONNEL Oxygen Saturation - - Inhaled Oxygen Concentration - - Weight - - Height - - Body Mass Index - - documented in this encounter Progress Notes Alen Mccall PA-C - 06/05/2006 12:01 AM CST Progress Notes signed by Alen Mccall PA-C at 06/21/062009 Author: Alen Mccall PA-C Service: (none) Author Type: Physician Radio Sportscaster Filed: 11/17/10 1545 Note Time: 06/05/062010 Status: Signed Pulper Operator: Alen Mccall PA-C (Physician Radio Sportscaster) NAME: CASSIDY KIRKLAND MR#: [id number] ACCT: [id number] VISIT: [id number] DICTATING CLINICIAN: ALEN MCCALL PA-C JOB: [id number] LOC: 520 CLINIC PROGRESS NOTE DATE OF [...] saltwater gargles, Tylenol or ibuprofen. Return p.r.n. [id number] C: 06/06/06 12:29 DOCUMENT: [id number] ROOM PERSONNEL documented in this encounter Plan of Treatment Not on filedocumented as of this encounter Visit Diagnoses Not on filedocumented in this encounter Care Teams Hydraulic Design Engineer Relationship Specialty Start Date End Date Leela Ruano MD PCP - General 4/513990 [place] [address] documented as of this encounter
--- OUTSIDE RECORDS SUMMARY | 2022-03-10 17:03 | XMS_ITS | Encounter Summary ---
:1985 Author Organization [facility] Address [address] [place] [address] Care Team Providers Name Role Phone Leela Ruano MD Primary Care Provider Encounter Details Date Type Department Care Team Description 03/29/2005 PN Conversion Only [place] [address] [address] [place] [address] Social History Tobacco Use Types Packs/Day Years Used Date Smoking Tobacco: Never Assessed Sex Assigned at Date Recorded Not on file documented as of this encounter Plan of Treatment Not on filedocumented as of this encounter Visit Diagnoses Not on filedocumented in this encounter Care Teams Three Dimensional Art Instructor Relationship Specialty Start Date End Date Leela Ruano MD PCP - General 10/31/[address] [place] [address] documented as of this encounter
--- OUTSIDE RECORDS SUMMARY | 2022-03-10 17:03 | XMS_ITS | Encounter Summary ---
:1985 Author Organization [facility] Address [address] [place] [address] Care Team Providers Name Role Phone Leela Ruano MD Primary Care Provider Encounter Details Date Type Department Care Team Description 04/03/2007 PN Conversion Only [place] CONVERSIO N Penny, [address] [facility] [place] [address] [place] [address] (Wo rk) Social History Tobacco Use Types [...] Complete Blood Count-W/Diff (04/03/2007 11:50 AM CDT) [facility] Method Time Signature White Blood Cell [...] - HP CONVERSION Hemoglobin Conc 36.5 gm/dL [place] RDW 12.3 11.0 - HP CONVERSION 15.0 [...] Routine(Micro If Pos) (04/03/2007 11:50 AM CDT) [facility] Method Time Signature Turbidity Clear No [...] Specific 1.020 1.005 - 25 HP CONVERSION [place] Specimen (Source) Anatomical Collection Method Collection Time Re ceived Time Location / / Volume Laterality 04/03/2007 11:50 AM CDT Jacky Francis MD LAB_1 Performing Organization Address [facility] Code Phon e Number HP [...] Jacky Francis MD LAB_1 Performing Organization Address [facility] Code Phon e Number HP [...] Jacky Francis MD LAB_1 Performing Organization Address [facility] Phon e Number HP CONVERSION Urine Culture (04/03/2007 11:37 AM CDT) Analysis Performed At [facility] Time Signature Urine Culture SEE TEXT HP CONVERSION Comment: Patient: CASSIDY KIRKLAND Culture, Urine @ ?Collected: ??[id number] ??1137 Source: Clean Ca ?Processed: ??[id number] ??1137 ? SENS,1V Final Report ------ ?[id number] ??1126 10-50,000 CFU/mL mixed gram positive org anisms No further workup @ = URINE CULTURE Performed at ??[address] [facility], [place], [place] ?[address] Specimen (Source) Anatomical Collection Method Collection Time Re ceived Time Location / / Volume Laterality 04/03/2007 11:37 AM CDT Jacky Francis MD LAB_1 Performing Organization Address [facility] Phon e Number HP CONVERSION Test (Urine) (04/03/2007 11:37 AM CDT) [facility] gist Method Time Signature Urine [...] Jacky Francis MD LAB_1 Performing Organization Address [facility] Phon e Number HP CONVERSION documented in this encounter Visit Diagnoses Not on filedocumented in this encounter Care Teams Sales Support Rep Relationship Specialty Start Date End Date Leela Ruano MD PCP - General 10/31/10 [address] [place] [address] documented as of this encounter
--- OUTSIDE RECORDS SUMMARY | 2022-03-10 17:03 | XMS_ITS | Encounter Summary ---
:1985 Author Organization [facility] Address [address] [place] [address] Care Team Providers Name Role Phone Leela Ruano MD Primary Care Provider Encounter Details Date Type Department Care Team Description 01/10/2006 PN Conversion Only [place] CONVERSIO N Leela Ruano, [address] [facility] [place] [address] [facility] [place] [address] (Wo rk) Social History Tobacco [...] Probe (01/10/2006 3:38 PM CDT) [facility] Method Time Signature Sexually SEE TEXT HP CONVERSION Transmitted Disease Probe Comment: Patient: CASSIDY KIRKLAND Sexually Trans Disease Probe @ ?Collected: ??[id number] ??1538 Source: ENDOCERV ?Processed: ??[id number] ??1538 ? V Final Report ------ ?[id number] ??1359 No Chlamydia trachomatis detected by amp lified DNA assay No Neisseria gonorrhoeae detected by amp lified DNA assay The Probetec Amplified DNA assay is laila red by the FDA for non-medicolegal diagnostic testing in the adult population. It has not been cleared for use in the pediatric population. @ = Sexually Trans Disease Probe Perform ed at ??[address] [place] [address] Specimen (Source) Anatomical Collection Method Collection Time Re ceived Time Location / / Volume Laterality 01/10/2006 3:38 PM CDT Leela Ruano MD LAB_1 Performing Organization Address City/State/ZIP Code Phon e Number HP CONVERSION Pap Smear (01/10/2006 2:33 PM CDT) [facility] gist Method Time Signature PAP Smear SEE TEXT No normal HP CONVERSION Liquid Based range Comment: Patient: CASSIDY KIRKLAND ? CERVICAL CYTOLOGY REPORT Pathology # ??[id number] ?Date Obtained: ? Date Received: CYTOLOGIC IMPRESSION: [...] on filedocumented in this encounter Care Teams Flatwork Catcher Relationship Specialty Start Date End Date Leela Ruano MD PCP - General 10/31/10 [address] [place] [address] documented as of this encounter
--- OUTSIDE RECORDS SUMMARY | 2022-03-10 17:03 | XMS_ITS | Encounter Summary ---
:1985 Author Organization [facility] Address [address] [place] [address] Care Team Providers Name Role Phone Leela Ruano MD Primary Care Provider Encounter Details Date Type Department Care Team Description 01/09/2006 PN Conversion Only [place] N [address] [place] [address] Social History Tobacco Use Types Packs/Day Years Used Date Smoking Tobacco: Never Assessed Sex Assigned at Date Recorded Not on file documented as of this encounter Plan of Treatment Not on filedocumented as of this encounter Visit Diagnoses Not on filedocumented in this encounter Care Teams Utilization Management Um Nurse Relationship Specialty Start Date End Date Leela Ruano MD PCP - General 10/31/[address] [place] [address] documented as of this encounter
--- OUTSIDE RECORDS SUMMARY | 2022-03-10 17:03 | XMS_ITS | Encounter Summary ---
:1985 Author [facility] Address [address] [place] [address] Care Team Providers Name Role Phone Leela Ruano MD Primary Care Provider Encounter Details Date Type Department Care Team Description 01/10/2006 PN Conversion Only [place] CONVERSIO N Leela Ruano, [address] [facility] [place] [address] [facility] [place] [address] (Wo rk) Social History Tobacco Use Types Packs/Day Years Used Date Smoking Tobacco: Never Assessed Sex Assigned at Date Recorded Not on file documented as of this encounter Plan of Treatment Not on filedocumented as of this encounter Visit Diagnoses Not on filedocumented in this encounter Care Teams Atlassian Administrator Relationship Specialty Start Date End Date Leela Ruano MD PCP - General 10/31/10 [address] [place] [address] documented as of this encounter
--- OUTSIDE RECORDS SUMMARY | 2022-03-10 17:03 | XMS_ITS | Encounter Summary ---
:1985 Author Organization [facility] Address [address] [address] Care Team Providers Name Role Phone Leela Ruano MD Primary Care Provider Encounter Details Date Type Department Care Team Description 01/10/2006 Office Visit [facility] [place] [address] [address] [place] [address] [place] [address] [phone] (Wo rk) Social History Tobacco Use Types [...] 1258 Note Time: 01/10/06 0001 Status: Signed Direct Support Staff Member: ARIANNA Pabon (Physician) NAME: CASSIDY KIRKLAND MR: [id number] ACCT: [id number] VISIT: [id number] DICTATING CLINICIAN: ARIANNA PABON JOB: [id number] CLINIC PHYSICAL DATE OF VISIT: 01/10/2006 SUBJECTIVE: [...] several months. Patient is a student at [employer]. 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 [id number] C: 01/15/06 05:57 DOCUMENT: [id number] documented in this encounter Plan of Treatment Not on filedocumented as of this encounter Visit Diagnoses Not on filedocumented in this encounter Care Teams Funeral Home Makeup Artist Relationship Specialty Start Date End Date Leela Ruano MD PCP - General 10/31/10 [address] [place] [place] [address] documented as of this encounter
--- OUTSIDE RECORDS SUMMARY | 2022-03-10 17:03 | XMS_ITS | Encounter Summary ---
:1985 Author Organization [facility] Address [address] [place] [address] Care Team Providers Name Role Phone Leela Ruano MD Primary Care Provider Reason for Visit Reason Comments Other Encounter Details Date Type Department Care Team Description 03/29/2005 Telephone [facility], Message Other [address] [place] [address] Social History Tobacco Use Types Packs/Day Years Used Date Smoking Tobacco: Never Assessed Sex Assigned at Date Recorded Not on file documented as of this encounter Progress Notes Center, Message - 03/29/2005 2:44 PM CDT Phone Note filed by [employer] at 11/13/102019 Author: [employer] Service: (none) Author Type: (none) Filed: 11/13/102019 Note Time: 03/29/051443 Status: Signed Final Cigar And Box Examiner: [employer] Pt was seen today, was told to check with insurance company to see which OCP would be covered- either Enpres or Trivora would work. Please call into [facility] in av- [phone]. Created on 29Mar2005 2:44pm by YOLI THOMAS On 29Mar2005 4:22pm GIGI FELICIANO wrote: ok for trivora, taken as directed, #84 with 1 refill, then needs pap. Acknowledged by GIGI FELICIANO on 1Sep 4:22pm On [id number] 8:19am YOLI THOMAS wrote: Script faxed to pt's pharmacy, given one refill with note that pt will be due for pap. Acknowledged by YOLI THOMAS on 8:19am ERN HANGER documented in this encounter Plan of Treatment Not on filedocumented as of this encounter Visit Diagnoses Not on filedocumented in this encounter Care Teams Shearing Shed Worker Relationship Specialty Start Date End Date Leela Ruano MD PCP - General 10/31/10 [address] [place] [address] documented as of this encounter
--- OUTSIDE RECORDS SUMMARY | 2022-03-10 17:03 | XMS_ITS | Encounter Summary ---
:1985 Author Organization [facility] Address [address] [place] [address] Care Team Providers Name Role Phone Leela Ruano MD Primary Care Provider Encounter Details Date Type Department Care Team Description 04/22/2007 PN Conversion Only CONV GASTROENTEROLOG Y Casa Reyes MD [address] [place] [id number] (Wo rk) Social History Tobacco Use Types Packs/Day Years Used Date Smoking Tobacco: Never Assessed Sex Assigned at Date Recorded Not on file documented as of this encounter Plan of Treatment Not on filedocumented as of this encounter Visit Diagnoses Not on filedocumented in this encounter Care Teams Turnstile Attendant Relationship Specialty Start Date End Date Leela Ruano MD PCP - General 10/31/10 [address] [place] [address] documented as of this encounter
--- OUTSIDE RECORDS SUMMARY | 2022-03-10 17:03 | XMS_ITS | Encounter Summary ---
:1985 Author Organization [facility] Address [address] [place] [address] Care Team Providers Name Role Phone Leela Ruano MD Primary Care Provider Encounter Details Date Type Department Care Team Description 06/05/2006 PN Conversion Only [place] [facility] N Alonso Mccall, [address] [facility] [place], [place] [address] [id number] [place] [address] [place], [place] [address] (Wo rk) Social History Tobacco Use Types Packs/Day Years Used Date Smoking Tobacco: Never Assessed Sex Assigned at Date Recorded Not on file documented as of this encounter Plan of Treatment Not on filedocumented as of this encounter Procedures Procedure Name Priority Date/Time Associated Diagnosis Comme nts STREP GROUP A Routine 06/05/2006 2:09 PM Results for this ANTIGEN TEST AIR DIRECTOR procedure are i n the results section. BETA STREP FOLLOWUP Routine 06/05/2006 2:09 PM Re sults for this AIR DIRECTOR procedure are i n the results section. documented in this encounter Results Strep Group A Antigen Test (06/05/2006 2:09 PM AIR DIRECTOR) Analysis Performed At Patho logist Time Signature Strep Group A Negative Negative HP CONVERSION Antigen Test Comment: Culture to follow. Specimen (Source) Anatomical Collection Method Collection Time Re ceived Time Location / / Volume Laterality 06/05/2006 2:09 PM AIR DIRECTOR Alonso Mccall PA-C LAB_1 Performing Organization Address City/State/ZIP Code Phon e Number HP CONVERSION Beta Strep Followup (06/05/2006 2:09 PM AIR DIRECTOR) P athologist Signature Strep Screen SEE TEXT HP CONVERSION Comment: Patient: CASSIDY KIRKLAND Rapid Strep Follow up Culture @ ? Collected: ??[id number] ??[id number] Source: Throat ?Processed: ??[id number] ??[id number] Final Report ------ ?[id number] ??0730 No beta hemolytic Strep group A isolated . @ = Rapid F/U Cult Performed at ??[address] [facility] [place] ?[address] Specimen (Source) Anatomical Collection Method Collection Time Re ceived Time Location / / Volume Laterality 06/05/2006 2:09 PM AIR DIRECTOR Alonso Mccall PA-C LAB_1 Performing Organization Address City/State/ZIP Code Phon e Number HP CONVERSION documented in this encounter Visit Diagnoses Not on filedocumented in this encounter Care Teams Electrician Underground Relationship Specialty Start Date End Date Leela Ruano MD PCP - General 10/31/10 [address] [place] [address] [id number] documented as of this encounter
--- OUTSIDE RECORDS SUMMARY | 2022-03-10 17:04 | XMS_ITS | Encounter Summary ---
:1985 Author Organization [facility] Address [address] [place] [address] Care Team Providers Name Role Phone Leela Ruano MD Primary Care Provider Encounter Details Date Type Department Care Team Description 04/29/2003 PN Conversion Only [place] [address] [place] [address] Social History Tobacco Use Types Packs/Day Years Used Date Smoking Tobacco: Never Assessed Sex Assigned at Date Recorded Not on file documented as of this encounter Plan of Treatment Not on filedocumented as of this encounter Visit Diagnoses Not on filedocumented in this encounter Care Teams Commutator Tester Relationship Specialty Start Date End Date Leela Ruano MD PCP - General 10/31/[address] [place] [id number] documented as of this encounter
--- OUTSIDE RECORDS SUMMARY | 2022-03-10 17:04 | XMS_ITS | Encounter Summary ---
:1985 Author Organization [facility] Address [address] [place] [address] Care Team Providers Name Role Phone Neva Lopez MD Primary Care Provider Reason for Visit Reason Comments Other Encounter Details Date Type Department Care Team Description 03/13/2004 Telephone [facility], Message Other [address] [place] [address] Social History Tobacco Use Types Packs/Day Years Used Date Smoking Tobacco: Never Assessed Sex Assigned at Date Recorded Not on file documented as of this encounter Progress Notes Aki Arita - 03/13/2004 10:13 AM CDT Phone Note filed by Aki Arita RN at 11/13/10 9008 Author: Aki Arita RN Service: (none) Author Type: Registered Nurse Filed: 11/13/10 7941 Note Time: 03/13/04 1013 Status: Signed Jewel Sawyer: Aki Arita RN (Registered Nurse) Mom and patient calling. Pt. has been on Triphasil 28 for about 6 months. Starting the middle of last month she has been bleeding every 2 weeks. Is asking if she should be concerned, does she need to change med? May reach her at [phone]. Goes to the [facility] pharmacy at [phone]. Created on [id number] 10:13am by AKI ARITA On 13Mar2004 10:59am [...] on filedocumented in this encounter Care Teams Golf Course Designer Relationship Specialty Start Date End Date Neva Lopez MD PCP - General 10/31/10 [address] [place] [address] documented as of this encounter
--- OUTSIDE RECORDS SUMMARY | 2022-03-10 17:04 | XMS_ITS | Encounter Summary ---
:1985 Author Organization [facility] Address [address] [place] [address] Care Team Providers Name Role Phone Leela Ruano MD Primary Care Provider Encounter Details Date Type Department Care Team Description 06/02/2003 PN Conversion Only [place] [facility] N Leela Ruano, [address] [facility] [place] [address] [facility] [place] [address] (Wo rk) Social History Tobacco Use Types Packs/Day Years Used Date Smoking Tobacco: Never Assessed Sex Assigned at Date Recorded Not on file documented as of this encounter Plan of Treatment Not on filedocumented as of this encounter Procedures Procedure Name Priority Date/Time Associated Comments Diagnosis ANATOMICAL PATH Routine 06/02/2003 9:45 AM Result s for this LIQUID BASED VEGETABLE PACKER procedure are i n the results section. documented in this encounter Results Pap Smear (06/02/2003 9:45 AM VEGETABLE PACKER) [facility] gist Method Time Signature PAP Smear SEE TEXT No normal HP CONVERSION Liquid Based range Comment: Patient: CASSIDY KIRKLAND ? CERVICAL CYTOLOGY REPORT Pathology # ??[id number] ?Date Obtained: ? Date Received: CYTOLOGIC IMPRESSION: [...] / / Volume Laterality 06/02/2003 9:45 AM VEGETABLE PACKER Leela Ruano MD LAB_1 Performing Organization Address City/State/ZIP Code Phon e Number HP CONVERSION documented in this encounter Visit Diagnoses Not on filedocumented in this encounter Care Teams Social Work Lecturer Relationship Specialty Start Date End Date Leela Ruano MD PCP - General 10/31/10 [address] [place] [address] documented as of this encounter
--- OUTSIDE RECORDS SUMMARY | 2022-03-10 17:04 | XMS_ITS | Encounter Summary ---
:1985 Author Organization [facility] Address [address] [place] [address] Care Team Providers Name Role Phone Neva Lopez MD Primary Care Provider Encounter Details Date Type Department Care Team Description 08/16/[address] [facility] [place] [address] [address] [place] [address] [place] [address] [phone] (Wo rk) Social History Tobacco Use Types Packs/Day Years Used Date Smoking Tobacco: Never Assessed Sex Assigned at Date Recorded Not on file documented as of this encounter Progress Notes Neva Lopez MD - 08/16/2004 12:01 AM CST H&P signed by ARIANNA Love at 08/18/04 1959 Author: ARIANNA Love Service: (none) Author Type: Physician Filed: 11/17/10 0255 Note Time: 08/16/042010 Status: Signed Pot Puncher: ARIANNA Love (Physician) NAME: CASSIDY KIRKLAND MR: [id number] ACCT: [id number] VISIT: [id number] DICTATING CLINICIAN: NEVA LOPEZ MD JOB: [id number] CLINIC PHYSICAL DATE OF VISIT: 08/16/2004 SUBJECTIVE: [...] SOCIAL HISTORY: Single. Is a student at [employer]. Is living at home. Does not smoke [...] note that I did do an STD [place] check today along with her Pap smear. PLAN: See assessment. GLB:[id number] C: 08/17/04 09:14 DOCUMENT: [id number] A GANG SUPERVISOR documented in this encounter Plan of Treatment Not on filedocumented as of this encounter Visit Diagnoses Not on filedocumented in this encounter Care Teams Screen Printing Cloth Spreader Relationship Specialty Start Date End Date Neva Lopez MD PCP - General 10/31/10 [address] [place] [address] documented as of this encounter
--- OUTSIDE RECORDS SUMMARY | 2022-03-10 17:04 | XMS_ITS | Encounter Summary ---
:1985 Author Organization [facility] Address [address] [place] [address] Care Team Providers Name Role Phone Neva Lopez MD Primary Care Provider Encounter Details Date Type Department Care Team Description 05/04/2004 Office Visit [facility] [place] [address] [address] [place] [address] [place] [address] [phone] (Wo rk) Social History Tobacco Use Types Packs/Day Years Used Date Smoking Tobacco: Never Assessed Sex Assigned at Date Recorded Not on file documented as of this encounter Progress Notes Neva Lopez MD - 05/04/2004 12:01 AM CDT Progress Notes signed by ARIANNA Love at 05/04/042014 Author: ARIANNA Love Service: (none) Author Type: Physician Filed: 11/17/10 0103 Note Time: 05/04/042014 Status: Signed Rope Cleaner: ARIANNA Love (Physician) NAME: CASSIDY KIRKLAND MR: [id number] ACCT: [id number] VISIT: [id number] DICTATING CLINICIAN: NEVA LOPEZ MD JOB: [id number] CLINIC PROGRESS NOTE DATE OF VISIT: 05/04/2004 [...] high school. She is now going to [employer] and is living at home. She plans to transfer to [employer] in a couple of years. [...] sign at the right wrist, good hand material inspector noted. ASSESSMENT: 1. Contraception, doing well. Continue [...] up if this worsens. PLAN: See assessment. GLB:[id number] C: 05/04/04 17:16 DOCUMENT: [id number] documented in this encounter Plan of Treatment Not on filedocumented as of this encounter Visit Diagnoses Not on filedocumented in this encounter Care Teams Want Ad Supervisor Relationship Specialty Start Date End Date Neva Lopez MD PCP - General 10/31/10 [address] [place] [address] documented as of this encounter
--- OUTSIDE RECORDS SUMMARY | 2022-03-10 17:04 | XMS_ITS | Encounter Summary ---
:1985 Author Organization [facility] Address [address] [place] [address] Care Team Providers Name Role Phone Leela Ruano MD Primary Care Provider Encounter Details Date Type Department Care Team Description 01/30/2003 PN Conversion Only [place] [facility] N Chuck Gutierrez, [address] [facility] [place] [address] [place] [address] Social History Tobacco Use Types Packs/Day Years Used Date Smoking Tobacco: Never Assessed Sex Assigned at Date Recorded Not on file documented as of this encounter Plan of Treatment Not on filedocumented as of this encounter Visit Diagnoses Not on filedocumented in this encounter Care Teams Sleep Manager Relationship Specialty Start Date End Date Leela Ruano MD PCP - General 10/31/[address] [place] [address] [address] [place] [id number] documented as of this encounter
--- OUTSIDE RECORDS SUMMARY | 2022-03-10 17:04 | XMS_ITS | Encounter Summary ---
:1985 Author Organization [facility] Address [address] [place] [address] Care Team Providers Name Role Phone Leela Ruano MD Primary Care Provider Encounter Details Date Type Department Care Team Description 09/06/2003 PN Conversion Only [place] [address] [facility] [address] [place], [place] [address] [place] [address] (Wo rk) Social History Tobacco Use Types Packs/Day Years Used Date Smoking Tobacco: Never Assessed Sex Assigned at Date Recorded Not on file documented as of this encounter Plan of Treatment Not on filedocumented as of this encounter Procedures Procedure Name Priority Date/Time Associated Diagnosis Comme nts STREP GROUP A Routine 09/06/2003 1:08 PM Results for this ANTIGEN TEST GALVANIZING POT RUNNER procedure are i n the results section. BETA STREP FOLLOWUP Routine 09/06/2003 1:08 PM Re sults for this GALVANIZING POT RUNNER procedure are i n the results section. documented in this encounter Results Strep Group A Antigen Test (09/06/2003 1:08 PM GALVANIZING POT RUNNER) Analysis Performed At Patho logist Time Signature Strep Group A Negative Negative HP CONVERSION Antigen Test Comment: Culture to follow. Specimen (Source) Anatomical Collection Method Collection Time Re ceived Time Location / / Volume Laterality 09/06/2003 1:08 PM GALVANIZING POT RUNNER Bhupendra Dooley MD LAB_1 Performing Organization Address City/State/ZIP Code Phon e Number HP CONVERSION Beta Strep Followup (09/06/2003 1:08 PM GALVANIZING POT RUNNER) P athologist Signature Strep Screen SEE TEXT HP CONVERSION Comment: Patient: CASSIDY KIRKLAND Rapid Strep Follow up Culture @ ? Collected: ??[id number] ??1308 Source: Throat ?Processed: ??[id number] ??1310 ? 1V Final Report ------ ?[id number] ??0748 No beta hemolytic Strep group A isolated . @ = Rapid F/U Cult Performed at ??[address] [place] [place] ?[address] Specimen (Source) Anatomical Collection Method Collection Time Re ceived Time Location / / Volume Laterality 09/06/2003 1:08 PM GALVANIZING POT RUNNER Bhupendra Dooley MD LAB_1 Performing Organization Address City/[facility]/ZIP Code Phon e Number HP CONVERSION documented in this encounter Visit Diagnoses Not on filedocumented in this encounter Care Teams Child Care Teacher Relationship Specialty Start Date End Date Leela Ruano MD PCP - General 10/31/10 [address] [place] [address] documented as of this encounter
--- OUTSIDE RECORDS SUMMARY | 2022-03-10 17:04 | XMS_ITS | Encounter Summary ---
:1985 Author [facility] Address [address] [place] [address] Care Team Providers Name Role Phone Neva Lopez MD Primary Care Provider Encounter Details Date Type Department Care Team Description 12/22/2003 PN Conversion Only [place] [address] [place] [address] Social History Tobacco Use Types Packs/Day Years Used Date Smoking Tobacco: Never Assessed Sex Assigned at Date Recorded Not on file documented as of this encounter Progress Notes Neva Lopez MD - 11/25/2003 12:01 AM CDT Progress Notes signed by ARIANNA Love at 01/17/04 1004 Author: ARIANNA Love Service: (none) Author Type: Physician Filed: 11/16/10 2222 Note Time: 11/25/03 0001 Status: Signed Rn Emergency Room: ARIANNA Love (Physician) NAME: CASSIDY KIRKLAND MR: [id number] ACCT: [id number] VISIT: [id number] DICTATING CLINICIAN: NEVA LOPEZ MD JOB: [id number] CLINIC PROGRESS NOTE DATE OF VISIT: 11/25/2003 [...] EXTREMITIES: No lesions. Gait and coordination fine. GLB:[id number] C: 11/29/03 10:12 DOCUMENT: [id number] Bhupendra Dooley MD - 09/06/2003 12:01 AM CST Progress Notes signed by Bhupendra Dooley MD at 09/06/03 1151 Author: Bhupendra Dooley MD Service: (none) Author Type: Physician Filed: 11/16/10 8702 Note Time: 09/06/032015 Status: Signed Rn Emergency Room: Bhupendra Dooley MD (Physician) CHIEF COMPLAINT: POSS STREP PROVIDER NOTE: [facility] Acute Clinic Visit IMPRESSION: Pharyngitis Chief [...] updated on the Health Profile screen of [facility] Chronic Medications: No chronic medications [...] Shorthand Note completed on: 09/06/03 11:46 AM NT LEAD TEACHER Phone Note, Clinician - 07/06/2003 12:01 AM CST Phone Note signed by ARIANNA Love at 07/16/03 0623 Author: Clinician Phone Note Service: (none) Author Type: Resource Filed: 12/22/03 0000 Note Time: 07/06/03 0001 Status: Signed Rn Emergency Room: Clinician Phone Note (Resource) - TREATING PROVIDER: NEVA JESSICA * HOME PHONE:[phone] * SUBJECTIVE: * WORK PHONE:[phone] * ALLERGIES/SENSITIVITIES... CURRENT MEDICATIONS... PERTINENT PAST HISTORY... ASSESSMENT: New rx Triphasil DISPOSITION: NO DISPOSITION GIVEN OMITTED ASKING ABOUT . OMITTED ASKING [facility]URSING. [facility]... Per Lyndsey Lopez rx approved for Triphasil 28 1 po every day 3 packs with 1 year refill and called to [facility] [phone] CALL BY NAHUM PICKETT 07/06/2003 10:09AM [phone] ADDENDUM: Neva Escamilla MD - 06/02/2003 12:01 AM CST H&P signed by ARIANNA Love at 06/23/03 1533 Author: ARIANNA Love Service: (none) Author Type: Physician Filed: 11/16/10 1714 Note Time: 06/02/03 0001 Status: Signed Rn Emergency Room: ARIANNA Love (Physician) NAME: CASSIDY KIRKLAND MR: [id number] ACCT: [id number] VISIT: [id number] DICTATING CLINICIAN: NEVA LOPEZ MD JOB: [id number] CLINIC PHYSICAL DATE OF VISIT: 06/02/2003 SUBJECTIVE: [...] a 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 TT: CT: [id number] C: 06/05/03 16:40 DOCUMENT: [id number] NT LEAD TEACHER documented in this encounter Plan of Treatment Not on filedocumented as of this encounter Visit Diagnoses Not on filedocumented in this encounter Care Teams Box Lidder Relationship Specialty Start Date End Date Neva Lopez MD PCP - General 10/31/10 [address] [place] [address] documented as of this encounter
--- OUTSIDE RECORDS SUMMARY | 2022-03-10 17:04 | XMS_ITS | Encounter Summary ---
:1985 Author Organization [facility] Address [address] [place] [address] Care Team Providers Name Role Phone Leela Ruano MD Primary Care Provider Encounter Details Date Type Department Care Team Description 01/30/2003 PN Conversion Only [place] [facility] N Chuck Gutierrez, [address] [facility] [place] [address] [place] [address] Social History Tobacco Use Types Packs/Day Years [...] Alonso Mccall PA-C LAB_1 Performing Organization Address [facility] Phon e Number HP CONVERSION Beta Strep Followup (01/30/2003 12:50 PM CDT) athologist Signature Strep Screen SEE TEXT HP CONVERSION Comment: Patient: CASSIDY KIRKLAND Rapid Strep Follow up Culture @ ? Collected: ??[id number] ??1250 Source: Throat ?Processed: ??[id number] ??1251 ? 1V Final Report ------ ?[id number] ??0931 No beta hemolytic Strep group A isolated . @ = Rapid F/U Cult Performed at [address] [place] ?[address] Specimen (Source) Anatomical Collection Method Collection Time Re ceived Time Location / / Volume Laterality 01/30/2003 12:50 PM CDT Alonso Mccall PA-C LAB_1 Performing Organization Address [facility] Phon e Number HP CONVERSION WBC, Blood (01/30/2003 11:49 AM CDT) athologist Signature White Blood 9.1 3.8 - 11.0 HP CONVERSION Cell Count K/cmm Specimen (Source) Anatomical Collection Method Collection Time Re ceived Time Location / / Volume Laterality 01/30/2003 11:49 AM CDT Alonso Mccall PA-C LAB_1 Performing Organization Address [facility] Phon e Number HP CONVERSION (ABNORMAL) Differential Manual (01/30/2003 11:49 AM CDT) [facility] Method Time Signature Neutrophils 81 (H) 34 [...] Alonso Mccall PA-C LAB_1 Performing Organization Address [facility] Phon e Number HP CONVERSION Mononucleosis Screen (01/30/2003 11:49 AM CDT) [facility] Method Time Signature Infectious Negative Negative HP CONVERSION Mononucleosis Screen Specimen (Source) Anatomical Collection Method Collection Time Re ceived Time Location / / Volume Laterality 01/30/2003 11:49 AM CDT Alonso Mccall PA-C LAB_1 Performing Organization Address City/[facility] Phon e Number HP CONVERSION documented in this encounter Visit Diagnoses Not on filedocumented in this encounter Care Teams Environmental Manager Relationship Specialty Start Date End Date Leela Rauno MD PCP - General 10/31/10 [address] [place] [id number] documented as of this encounter
--- OUTSIDE RECORDS SUMMARY | 2022-03-10 17:04 | XMS_ITS | Encounter Summary ---
:1985 Author [facility] Address [address] [place] [address] Care Team Providers Name Role Phone Leela Ruano MD Primary Care Provider Encounter Details Date Type Department Care Team Description 04/29/2003 PN Conversion Only [place], [place] [address] [address] [place] [address] [place] [address] [phone] Social History Tobacco Use Types Packs/Day Years Used Date Smoking Tobacco: Never Assessed Sex Assigned at Date Recorded Not on file documented as of this encounter Progress Notes Alonso Mccall PA-C - 01/30/2003 12:01 AM CDT Progress Notes signed by Alonso Mccall PA-C at 04/27/04 1348 Author: Alonso Mccall PA-C Service: (none) Author Type: Physician Ingot Buggy Operator Filed: 11/16/10 1513 Note Time: 01/30/03 0001 Status: Signed Tip Stitcher: Alonso Mccall PA-C (Physician Ingot Buggy Operator) NAME: LEODAN KIRKLAND MR: [id number] ACCT: [id number] VISIT: [id number] DICTATING CLINICIAN: LEANN ROSARIO JOB: [id number] CLINIC PROGRESS NOTE DATE OF VISIT: 01/30/2003 [...] questions or if problems continue. TT: CT: [id number] C: 01/30/03 19:34 DOCUMENT: [id number] Sandie Carrillo MD - 04/25/2002 12:01 AM CDT Progress Notes signed by Sandie Carrillo MD at 05/27/02 1637 Author: Sandie Carrillo MD Service: (none) Author Type: Physician Filed: 11/16/10 0942 Note Time: 04/25/022022 Status: Signed Tip Stitcher: Sandie Carrillo MD (Physician) IMPRESSION: No dictation required. URI, bronchitis. SUBJECTIVE: No dictation. OBJECTIVE: N/A ASSESSMENT: URI, bronchitis. PLAN: E.E.S. TT: CT: [id number] C: DOCUMENT: [id number] TY ADVISOR Conversion, [facility] - 09/29/2001 12:01 AM CST Progress Notes signed by at 09/19/022022 Author: Trung Conversion Service: (none) Author Type: (none) Filed: 11/16/10 0454 Note Time: 09/29/012022 Status: Signed Tip Stitcher: Trung Conversion IMPRESSION: Acne. SUBJECTIVE: : 85. [...] return on a p.r.n. basis. TT: CT: [id number] C: DOCUMENT: [id number] SCHEDULED RESOURCE: MARSHAL SEBASTIAN / JOSEPH TY ADVISOR Conversion, [facility] - 07/28/2001 12:01 AM CST Progress Notes signed by at 09/19/02 0001 Author: Trung Conversion Service: (none) Author Type: (none) Filed: 11/16/10 0325 Note Time: 07/28/01 0001 Status: Signed Tip Stitcher: Trung Conversion IMPRESSION: Moderate acne. SUBJECTIVE: : 1985. Leodan is a 16-year-old female in today concerned with acne involving her face, back and chest. Finds that she has used just about everything cphx-csw-hrburph without any improvement in her symptoms. Finds that some of the products are more irritating to her skin than helpful for her acne. Is currently using [employer] Care kapw-vzi-ysqvhwx which involves both a pill and a cream. She does report some cystic-type acne with some scarring on both cheeks present as a result. PAST MEDICAL HISTORY: Benign. CURRENT MEDICATIONS: None. ALLERGIES : PENICILLIN. TOBACCO USE: None. Further complete ROS is negative. Pain and nutrition screening negative. OBJECTIVE: VS/GEN: BP: 104/70 P: 76 Wt: 114 pounds. This is a 16-year-old female in [employer]. She is WH, WN. SKIN: Warm and [...] or concerns prior to that. TT: CT: [id number] C: DOCUMENT: [id number] SCHEDULED RESOURCE: MARSHAL SEBASTIAN / JOSEPH Kori Daily APRN, CNP - 02/28/2000 12:01 AM CDT Progress Notes signed by Kori Alicia APRN, CNP at 12/02/00 3115 Author: TATO Davis Service: (none) Author Type: Nurse Practitioner Filed: 11/15/10 1804 Note Time: 02/28/00 0001 Status: Signed Tip Stitcher: TATO Davis (Nurse Practitioner) IMPRESSION: Onwcnfjm-kmgy-xvs well-child physical exam. Rule out scoliosis. SUBJECTIVE: [...] recently had her eyes checked by an public transit trolley driver. One eye was nearsighted, the other eye [...] Skin without rashes or bruises noted. ASSESSMENT: Vphkuxyb-rxfv-rby well-child physical exam. Rule out scoliosis. PLAN: [...] action according to the degree of curvature. [facility]:[id number] C: DOCUMENT: [id number] Junior Posadas MD - 12/20/1999 12:01 AM CDT Progress Notes signed by Junior Posadas MD at 05/27/02 9577 Author: Junior Posadas MD Service: (none) Author Type: Physician Filed: 11/15/10 1703 Note Time: 12/20/99 0001 Status: Signed Tip Stitcher: Junior Posadas MD (Physician) IMPRESSION: No dictation required. Upper respiratory infection. SUBJECTIVE: See URI shingle. OBJECTIVE: N/A ASSESSMENT: Upper respiratory infection. PLAN: Fluids, rest, Tylenol. Follow up if symptoms not improving in five to six days, sooner if worse or any new symptoms. DSR:[id number] C: DOCUMENT: [id number] TY ADVISOR Conversion, [facility] - 07/05/1999 12:01 AM CST Progress Notes signed by at 05/27/02 1637 Author: [facility] Conversion Service: (none) Author Type: (none) Filed: 11/15/10 1424 Note Time: 07/05/99 0001 Status: Signed Tip Stitcher: [facility] Conversion IMPRESSION: No dictation required. Pharyngitis, upper respiratory infection. SUBJECTIVE: See URI shingle. OBJECTIVE: N/A ASSESSMENT: Pharyngitis, upper respiratory infection. PLAN: Symptomatic care. LAG:[id number] C: DOCUMENT: [id number] SCHEDULED RESOURCE: [facility] TY ADVISOR Conversion, [facility] - 03/28/1999 12:01 AM CDT Phone Note signed by at 03/28/99 1029 Author: [facility] Conversion Service: (none) Author Type: (none) Filed: 11/15/10 1243 Note Time: 03/28/99 0001 Status: Signed Tip Stitcher: Trung Conversion IMPRESSION: Re: Tagamet Orders.. TO: GENET BOND FROM: ARABELLA MCNALLY LPN [phone] * PROVIDER MESSAGE: ROUTINE * 03/28/1999 10:29AM * *WITHIN 4 HOURS * MESSAGE: Pharmacist is requesting * HOME PHONE: [phone] * call from a Provider regarding * WORK PHONE: [phone] * the Tagamet Order written by T. * CONTACT PHONE: [phone] * Cal on 03/24/99: Order is * Pharmacist. * written for Tagamet 600mg po * PHARMACY: [phone] * BID. But Tagamet only comes * [facility] * in 300mg , 400mg , or 800mg. Please Advise. SUBJECTIVE: ALLERGIES/SENSITIVITIES... CURRENT MEDICATIONS... PERTINENT PAST HISTORY... WEIGHT: Not Available OMITTED ASKING ABOUT ; OMITTED ASKING ABOUT NURSING; ASSESSMENT: Re: Tagamet Orders.. PLAN: DISPOSITION: NO DISPOSITION GIVEN Call taken by ARABELLA MCNALLY LPN [phone] 03/28/1999 10:23 AM ADDENDUM: <> 03/28/1999 11:07AM by TRUDI VASQUEZ [phone]: NURSE FOLLOW UP NEEDED.Per Diana Bond NP: [...] <> 03/28/1999 12:01PM by AMPARO RICH LPN [phone]: ////Attention: Alonso Mccall @ 1V; The above message was sent to Gisella Bond in error. Pharmacy needs provider to clarify above rx. Patient was seen by provider on 03/24/99, see progress note in phone care. Alonso Sellers PA-C - 03/24/1999 12:01 AM CDT Progress Notes signed by Alonso Mccall PA-C at 06/26/99 9133 Author: Alonso Mccall PA-C Service: (none) Author Type: Physician Ingot Buggy Operator Filed: 11/15/10 1240 Note Time: 03/24/99 0001 Status: Signed Tip Stitcher: Alonso Mccall PA-C (Physician Ingot Buggy Operator) IMPRESSION: Multiple plantar warts. SUBJECTIVE: This pleasant [...] Tagamet for the next three months. CC: [id number] C: DOCUMENT: [id number] TY ADVISOR Alonso Mccall PA-C - 03/09/1999 12:01 AM CDT Progress Notes signed by Alonso Mccall PA-C at 06/26/99 0512 Author: Alonso Mccall PA-C Service: (none) Author Type: Physician Ingot Buggy Operator Filed: 11/15/10 1225 Note Time: 03/09/99 0001 Status: Signed Tip Stitcher: Alonso Mccall PA-C (Physician Ingot Buggy Operator) IMPRESSION: Multiple plantar warts right foot. SUBJECTIVE: [...] or worsen or if any questions develop. [id number] C: DOCUMENT: [id number] TY ADVISOR Alonso Mccall PA-C - 02/23/1999 12:01 AM CDT Progress Notes signed by Alonso Mccall PA-C at 06/26/992022 Author: Alonso Mccall PA-C Service: (none) Author Type: Physician Ingot Buggy Operator Filed: 11/15/10 1211 Note Time: 02/23/99 0001 Status: Signed Tip Stitcher: Alonso Mccall PA-C (Physician Ingot Buggy Operator) IMPRESSION: Multiple warts. SUBJECTIVE: This pleasant 13-year-old [...] refreezing and treatment of the smaller warts. TL:[id number] C: DOCUMENT: [id number] Alexandru Helton - 09/18/1997 12:01 AM CST Progress Notes signed by Alexandru Houser MD at 11/15/97 1432 Author: Alexandru Houser MD Service: (none) Author Type: Physician Filed: 11/15/10 0328 Note Time: 09/18/97 0001 Status: Signed Tip Stitcher: Alexandru Houser MD (Physician) IMPRESSION: Upper lip [...] of oral, respiratory, or ocular symptoms. [facility] TY ADVISOR Sandie Carrillo MD - 1996 12:01 AM CST Progress Notes signed by Sandie Carrillo MD at 05/27/02 1637 Author: Sandie Carrillo MD Service: (none) Author Type: Physician Filed: 11/14/10 2153 Note Time: 07/21/96 0001 Status: Signed Tip Stitcher: Sandie Carrillo MD (Physician) IMPRESSION: No dictation required. Pharyngitis. SUBJECTIVE: N/A OBJECTIVE: N/A ASSESSMENT: N/A PLAN: Treatment: Pending strep screen. timbo TY ADVISOR documented in this encounter Plan of Treatment [...] 11:37 AM Results for this ANTIGEN TEST SAFETY ADVISOR procedure are i n the results section. BETA STREP FOLLOWUP Routine 07/05/1999 11:37 AM R esults for this SAFETY ADVISOR procedure are i n the results section. BETA STREP RESP CULT Routine 09/15/1997 4:11 PM R esults for this SAFETY ADVISOR procedure are i n the results section. [...] TECH-ID : [id number] TRANS-ID: EDR Kori Alicia BACK PAD INSPECTOR, SHELLFISH BED WORKER RAD GD Strep Group A Antigen Test (12/20/1999 5:43 PM CDT) Analysis Performed At Patho logist Time Signature Strep Group A Negative Negative HP CONVERSION Antigen Test Comment: Culture to follow. Specimen (Source) Anatomical Collection Method Collection Time Re ceived Time Location / / Volume Laterality 12/20/1999 5:43 PM CDT Junior Posadas MD LAB_1 Performing Organization Address [facility] Code Phon e Number HP CONVERSION Beta Strep Followup (12/20/1999 5:43 PM CDT) athologist Signature Strep Screen SEE TEXT HP CONVERSION Comment: Patient: LEODAN KIRKLAND Rapid Strep Follow up Culture @ ? Collected: ??[id number] Source: Throat ?Processed: ??[id number] ??[id number] ? 1V Final Report ------ ?[id number] ??[id number] No beta hemolytic Strep group A isolated . @ = Rapid F/U Cult Performed at [address] [place], [place] ?[address] Specimen (Source) Anatomical Collection Method Collection Time Re ceived Time Location / / Volume Laterality 12/20/1999 5:43 PM CDT Junior Posadas MD LAB_1 Performing Organization Address City/State/ZIP Code Phon e Number HP CONVERSION Strep Group A Antigen Test (07/05/1999 11:37 AM SAFETY ADVISOR) Analysis Performed At Patho logist Time Signature Strep Group A Negative Negative HP CONVERSION Antigen Test Comment: Culture to follow. Specimen (Source) Anatomical Collection Method Collection Time Re ceived Time Location / / Volume Laterality 07/05/1999 11:37 AM SAFETY ADVISOR Kimber Villar MD LAB_1 Performing Organization Address City/[facility]/ZIP Code Phon e Number HP CONVERSION Beta Strep Followup (07/05/1999 11:37 AM SAFETY ADVISOR) P athologist Signature Strep Screen SEE TEXT HP CONVERSION Comment: Patient: LEODAN KIRKLAND Rapid Strep Follow up Culture @ ? Collected: ??[id number] ??[id number] Source: Throat ?Processed: ??[id number] ??[id number] ? 1V Final Report ------ ?[id number] ??[id number] No beta hemolytic Strep group A isolated . @ = Rapid F/U Cult Performed at ??[address] [place] ?[address] Specimen (Source) Anatomical Collection Method Collection Time Re ceived Time Location / / Volume Laterality 07/05/1999 11:37 AM SAFETY ADVISOR Kimber Villar MD LAB_1 Performing Organization Address City/[facility]/ZIP Code Phon e Number HP CONVERSION (ABNORMAL) Beta Strep Resp Cult (09/15/1997 4:11 PM SAFETY ADVISOR) Analysis Performed At [facility] Time Signature Strep Screen SEE TEXT HP CONVERSION (A) Comment: Patient: LEODAN KIRKLAND Culture Strep Screen, Throat @ ?Collected: ??[id number] ??[id number] Source: Throat ?Processed: ??[id number] ??[id number] ? IV Final Report ------ ?[id number] ??[id number] Beta Strep Group A Present. ICSI Pharyngitis guideline recommends Penicillin V potassium (Pen VK) in nonal lergic patients. If < 50 lbs, 250 mg PenVK BID for 10 day s. >=50 lbs, 500 mg PenVK BID for 10 days. @ = Strep Screen Performed at ??[address] [facility] [place], [place] ?[address] Specimen (Source) Anatomical Collection Method Collection Time Re ceived Time Location / / Volume Laterality 09/15/1997 4:11 PM SAFETY ADVISOR Jacky Paredes MD LAB_1 Performing Organization Address City/[facility] Code Phon e Number HP CONVERSION documented in this encounter Visit Diagnoses Not on filedocumented in this encounter Care Teams Pen Or Pencil Assembly Machine Operator Relationship Specialty Start Date End Date Leela Ruano MD PCP - General 10/31/10 [address] [place] [address] documented as of this encounter
[2022-03-10] MEDS: BETAMETHASONE SOD PHOS/ACETATE 6 MG/ML ML 12 MG IM (17:28)
== END 2022-03-10 17:35 | disposition home or self-care (01) ==
LOC: OB CLI 16:59 → OB 17:34
PROVIDERS: Visit Provider Obstetrics & Gynecology
DX: O09.529 Supervision of elderly multigravida, unspecified trimester (principal)
CPT/HCPCS: 99211; J0702

== ENCOUNTER 2022-03-11 06:39 | Inpatient (IN) | payer BC, OTHER, SELFPAY ==
[2022-03-11] VITALS (28 sets, daily range): BP systolic 100–135; BP diastolic 63–111; PULSE 93–119; RESP 16; TEMP 36.7–37.4; O2SAT 94–100; BMI 33.3
[2022-03-11] MEDS: LACTATED RINGERS 1000 ML 1,000 ML 980 ML IV (07:00)
[2022-03-11 08:27] LABS: Basophils Percent Auto 0.1 % (0.0-3.0); Hematocrit 34.9 % (33.0-51.0); Hemoglobin* 11.2 gm/dL (12.0-16.0); Immature Granulocytes Abs Auto 0.15 K/uL (0.00-0.30); Lymphocytes Percent Auto 9.6 % (20-44); Mean Corpuscular HGB Conc 32 gm/dL (32-36); Mean Corpuscular Hemoglobin 27 pg (26-34); Mean Corpuscular Volume 84 fL (80-100); Monocytes Percent Auto 5.7 % (0.0-11.0); Neutrophils Percent Auto 83.4 % (42.0-72.0); Platelet Count* 240 K/uL (140-440); RDW Coefficient of Variation % 13.8 % (11.5-15.5); Red Blood Count 4.16 m/uL (4.00-5.20); White Blood Count* 12.72 K/uL (4.50-11.00)
[2022-03-11 08:30] LABS: Slide Review Reflex No
[2022-03-11 08:35] LABS: SARS PCR* Negative SARS-CoV-2 (Negative)
[2022-03-11] MEDS: CLINDAMYCIN 900 MG/50 ML-D5W IVPB (08:45)
[2022-03-11] MEDS: LACTATED RINGERS 1000 ML 1,000 ML 125 ML IV ×3 (09:00→16:34)
[2022-03-11] MEDS: KETOROLAC 30 MG/ML inj IVP ×3 (10:20→21:29)
--- NOTE | 2022-03-11 10:23 | W.PM.GYNPROC ---
Procedure Note Date Seen: 03/11/22 Procedure Details: PREOPERATIVE DIAGNOSIS: 37 weeks gestation Gestational hypertension One previous delivery Undesired fertility POSTOPERATIVE DIAGNOSIS: 37 weeks gestation Gestational hypertension One previous delivery Undesired fertility PROCEDURE: Repeat low-transverse section with bilateral salpingectomy SURGEON: Shanae Camacho MD ANESTHESIA: Spinal IV FLUIDS: 2600 mL crystalloid URINE OUTPUT: Approximately 50 mL QBL: 848 mL FINDINGS: 1. Male infant, cephalic lie, Apgars of 5, 8, and 9 2. Scarring between lower uterus and bladder reflection. Otherwise, normal appearance to uterus, bilateral tubes and ovaries. 3. Broad, indented scar along previous skin incision COMPLICATIONS: None PROCEDURE IN DETAIL: Patient was taken to the operating room with IV running. She received gentamicin and clindamycin in preoperative prophylaxis. Spinal anesthesia was administered. Berg catheter was inserted. She was prepped and draped in the usual sterile fashion. Anesthesia was tested and found to be adequate. A low-transverse skin incision was made with a scalpel and carried through to the underlying layer of fascia with the scalpel. The subcutaneous fat was dissected off the underlying fascia with Bovie. The fascia was nicked in the midline with a scalpel, and this incision was extended laterally with scissors. The rectus muscles were in the midline. Peritoneum was identified and entered bluntly. Bovie was used to widen this opening laterally. Liu O retractor was inserted and tightened down, providing excellent visualization of the lower uterine segment. The previous incision site in the uterus was easily visible. Initially, the bladder reflection was thought to be well below the planned site for hysterotomy. Low-transverse uterine incision was made with a scalpel. Incision was widened bluntly. The infant's head was grasped through the hysterotomy and delivered with the help of fundal pressure. The remainder of the body delivered without incident. Cord was clamped and cut after 30 seconds. Infant was handed off to attending open die inspector. The placenta was delivered with gentle traction on the cord. It was sent to pathology for further analysis. The uterus was cleaned of all clots and debris with the dry lap pad. The hysterotomy was reapproximated with 0 Vicryl in a running, locked fashion. Second layer of the same suture was used in imbricating fashion to obtain hemostasis. An additional rvjusk-ve-wcadz suture was required in the midportion of the incision to obtain excellent hemostasis. The bilateral adnexa were examined and noted to be normal in appearance. The mesosalpinx beneath left fallopian tube was grasped with Ginger clamps, elevating the tube. The tube was divided from the investing mesosalpinx with the LigaSure exact device, moving laterally to medially. Tube was amputated at the left uterine cornua. Hemostasis was noted. Attention was then turned to the right fallopian tube, which was removed in similar fashion. Hemostasis was again noted. The cul-de-sac and gutters were cleansed with dampened laparotomy sponge, removing any further clots and debris. The Liu O retractor was removed. The hysterotomy was reexamined and found to be hemostatic. The peritoneum was reapproximated with 2 0 Vicryl in a running fashion. The rectus muscles were reapproximated with 2 interrupted stitches inferiorly, in order to better cover the bulge of the bladder. The fascia was reapproximated with 0 Vicryl in a running fashion. Subcutaneous fat was irrigated and Bovie used on oozing vessels. The subcutaneous fat was reapproximated with 2 0 plain gut suture in an interrupted fashion. The remnants of the previous scar were excised in an elliptical fashion with a scalpel. Bovie was used on bleeding vessels once again. The skin was closed with a subcuticular stitch of 4-0 Monocryl. Surgical glue was applied above this. Dressing was applied. Patient tolerated procedure well was taken to recovery area in stable condition.
--- NOTE | 2022-03-11 10:40 | W.PM.NB ---
Nerve Block Nerve Block Time Seen by Provider: 10:30 Date Seen: 03/11/22 Type of block requested by surgeon for post-operative analgesia: TAP Side: bilateral Time out performed: Yes Verification of patient name: Yes Verification of date of : Yes Name of person performing procedure: Black Ortega Continuous monitoring Was continuous monitoring of O2 sat, B/P, air sampling and monitoring, recorded every 15 minutes?: Yes Procedure Checklist: sterile prep, needles and gloves Ultrasound guided. Images saved: Yes Medications given in 5ml increments after negative aspiration: Marcaine %: 0.25 mL: 30 Needle gauge: 20 and Exparel mL: 10 Needle gauge: 20 Patient tolerated procedure well: Yes Additional comments: Injected in 5ml increments after negative aspiration
--- NOTE | 2022-03-11 10:42 | W.ANESCHARGE ---
Anesthesia Charges Start Date/Time Anesthesia Start Date: 03/11/22 Anesthesia Start Time: 08:40 Stop Date/Time Anesthesia Stop Date: 03/11/22 Anesthesia Stop Time: 10:30 Summary Emergency: No
[2022-03-11] MEDS: SODIUM CHLORIDE 0.9 % (FLUSH) 10 ML SYRINGE IVF (21:30)
[2022-03-12] VITALS (17 sets, daily range): BP systolic 114–142; BP diastolic 67–96; PULSE 64–95; RESP 15–16; TEMP 36.7–36.9; O2SAT 95–99
[2022-03-12] MEDS: KETOROLAC 30 MG/ML inj IVP ×3 (03:34→15:52)
[2022-03-12] MEDS: ACETAMINOPHEN 500 MG TABLET 1000 MG PO ×3 (06:00→18:52)
[2022-03-12 07:07] LABS: Hemoglobin* 8.9 gm/dL (12.0-16.0)
--- NOTE | 2022-03-12 08:10 | P.OBPN_ITS ---
OB - PN: A/P Assessment and Plan (1) Status post bilateral salpingectomy: Status: Acute (2) Encounter for maternal care for low transverse scar from repeat delivery: Status: Acute (3) Gestational hypertension: Problem details: 1. Admission History and physical completed today. 2. Betamethasone given today 03/09/2022 with 2nd dose tomorrow 03/10/2022 At approximately 5:00 p.m. 3. Repeat low-transverse and bilateral salpingectomy scheduled 8:30 a.m. on 03/11/2022. Consent form reviewed and signed today. Status: Acute Plan Cassidy is a 36-year-old 2 para 1 now 2 postop day 1 from a repeat low- transverse section and bilateral salpingectomy. Plan day: 1 Plan: routine postop care Comments: 1. Planning discharge home tomorrow. OB - PN: Subj Subjective Time Seen by Provider: 08:00 Date Seen: 03/12/22 Interval history: Cassidy states she is doing well. She has no concerns. She is tolerating a regular diet, ambulating w/o difficulty and passing flatus. Urine output is adequate and denies difficulty with urinary retention. Patient comments: no complaints, pain well controlled, tolerating diet and flatus present infant status: OB - PN: Obj Exam Physical Exam: Vital signs: Temp Pulse Resp BP Pulse Ox O2 Del Method 98.0 F 78 16 120/67 96 03/12/22 04:35 03/12/22 04:35 03/12/22 05:00 03/12/22 04:35 03/12/22 04:35 03/12/22 04:35 Narrative: OBJECTIVE: Vital Signs: See EMR MOOD: appropriate CHEST: clear to auscultation HEART: regular rate and rhythm ABDOMEN: soft, non-tender the uterine fundus is 2 cm below Umbilicus, Midline and is appropriate for the stage of recovery. INCISION: clean, dry and intact with sutures and skin adhesive. EXTREMITIES: normal and no edema Urinary Catheter Management: Urethral: Cath placed during this visit: yes Urethral indwelling: No Insertion date: 03/11/22 Insertion time: 08:50 OB - PN: Obj Data Labs Labs: Laboratory Results - last 24 hr 03/11/22 03/11/22 03/11/22 07:25 08:20 08:20 WBC 12.72 H RBC 4.16 Hgb 11.2 L Hct 34.9 MCV 84 MCH 27 MCHC 32 RDW Coeff of Dylan 13.8 Plt Count 240 Neut % (Auto) 83.4 H Lymph % (Auto) 9.6 L [place] % (Auto) 5.7 Eos % (Auto) 0.0 Baso % (Auto) 0.1 Neut # (Auto) 10.60 H Lymph # (Auto) 1.20 [place] # (Auto) 0.70 Eos # (Auto) 0.00 Baso # (Auto) 0.00 Abs Immat Gran (auto) 0.15 SARS-CoV-2 (PCR) Negative SARS-CoV-2 Blood Type A Positive Antibody Screen NEGATIVE 03/12/22 06:55 WBC RBC Hgb 8.9 L Hct MCV MCH MCHC RDW Coeff of Dylan Plt Count Neut % (Auto) Lymph % (Auto) [place] % (Auto) Eos % (Auto) Baso % (Auto) Neut # (Auto) Lymph # (Auto) [place] # (Auto) Eos # (Auto) Baso # (Auto) Abs Immat Gran (auto) SARS-CoV-2 (PCR) Blood Type Antibody Screen
[2022-03-12] MEDS: DOCUSATE SODIUM 100 MG CAPSULE PO (08:43)
[2022-03-12] MEDS: CITALOPRAM HYDROBROMIDE 20 MG TABLET PO (21:07)
[2022-03-12] MEDS: IBUPROFEN 600 MG TABLET PO (21:07)
[2022-03-13 00:02] VITALS: BP 135/89
[2022-03-13] MEDS: ACETAMINOPHEN 500 MG TABLET 1000 MG PO ×2 (01:11→10:38)
[2022-03-13 04:16] VITALS: BP 143/93; PULSE 74; RESP 16; TEMP 36.8; O2SAT 99
--- NOTE | 2022-03-13 07:46 | P.DS_ITS ---
DS: Providers Provider Date Seen: 03/13/22 Date of admission: 03/11/22 06:39 Primary care physician: Not a Local Provider Admitting Clinician: Shanae Camacho MD Attending Physician on discharge: Shanae Camacho MD Date of Discharge: 03/13/22 DS: Diagnosis Discharge Diagnosis (1) care following delivery: Status: Acute (2) Lactating mother: Status: Acute (3) Status post bilateral salpingectomy: Status: Acute Exam Const: Vital Signs, click to edit/add: Vital Signs - 24 hr 03/12/22 08:18 03/12/22 09:28 03/12/22 08:23 Temperature 98.1 F 98.4 F Pulse Rate [Pulse Oximeter] 64 Respiratory Rate 16 15 Blood Pressure [Le ft Arm] Blood Pressure [Ri ght Arm] 125/84 Pulse Oximetry 99 Oxygen Delivery Me thod Room Air 03/12/22 11:59 03/12/22 12:01 03/12/22 16:35 Temperature 98.4 F 98.2 F 98.2 F Pulse Rate [Pulse Oximeter] 84 80 Respiratory Rate 16 16 Blood Pressure [Le ft Arm] Blood Pressure [Ri ght Arm] 130/86 125/87 Pulse Oximetry 97 97 Oxygen Delivery Me thod Room Air Room Air 03/12/22 19:55 03/12/22 23:45 03/13/22 00:02 Temperature 98.2 F 98.2 F Pulse Rate [Pulse Oximeter] 78 74 Respiratory Rate 16 16 Blood Pressure [Le ft Arm] 135/80 Blood Pressure [Ri ght Arm] 138/90 H 142/96 H 135/89 Pulse Oximetry 99 99 Oxygen Delivery Me thod Room Air Room Air 03/13/22 04:16 Temperature 98.2 F Pulse Rate [Pulse Oximeter] 74 Respiratory Rate 16 Blood Pressure [Le ft Arm] Blood Pressure [Ri ght Arm] 143/93 H Pulse Oximetry 99 Oxygen Delivery Me thod Room Air Documenting provider has reviewed patient's vital signs: yes Common normals: no apparent distress, average body habitus, oriented x3, no limitations, healthy appearing, alert and well nourished HENMT: Common normals: normocephalic, hearing grossly normal bilaterally and external nose normal Head and scalp: normal to inspection and normocephalic Face and sinus: normal facial exam Nose: external nose normal Eye: General eye: normal appearance of both eyes Neck & C-Spine: Common normals: full ROM, supple and no JVD General: normal visual inspection Resp: Common normals: normal respiratory effort, no retractions, no use of accessory muscles and clear to auscultation bilaterally Auscultation: clear to auscultation bilaterally Cardio: Common normals: no JVD, regular rate, regular rhythm, S1 normal heart sound, S2 normal heart sound, no gallops, no clicks, no murmurs and no rub Rate: regular rate Rhythm: regular rhythm Heart sounds: S1 normal and S2 normal GI: Common normals: soft to palpation Palpation: soft and tender : Common normals: external appearance normal and appearance of the vagina normal OB/external & speculum: Yes deferred Uterus: U/2 Lochia: small Extremity: Common normals: full ROM Neuro: Common normals: oriented x3 Sensorium/orientation: alert Psych: Common normals: mental status grossly normal and thought process normal Thought process: normal thought process Skin: Skin images (female): 1. incision. Well approximated. OB - DS: Summary Hospital Course Hospital Course: The patient is a 36 year old G 2 P 2 at 37.0 weeks gestation that was admitted to the [facility] on 03/11/22 for repeat . She had an uncomplicated delivery. She delivered a viable female . The patient feels well.? The pain is well controlled with current medications.? She has no new complaints.? Urinary output is adequate and she is voiding without difficulty.? Has a good appetite, is tolerating a general diet, is passing flatus, and has not had a bowel movement.? Has?a small amount of rubra lochia.? She is ambula ting well. She is breast feeding and denies compilations. Peripartum Data Procedures: Procedures Operation Date: 03/11/22 08:45 Actual Procedure Side Surgeon p Section, bilateral salpingectomy Shanae Camacho MD complications: none Infant Gender: Female Infant Discharge Plan: Home Status at Discharge Functional status at discharge: independent ambulation Overall status at discharge: patient is progressing back to baseline Time Spent with Patient Time attestation: Total time spent providing and/or coordinating discharge services: Discharge Plan Discharge Disposition: Home, Self-Care Date of Admission: 03/11/22 06:39 Attending Provider on Discharge: Hallie Acosta Primary Care Provider: Provider,Not a Local Condition: Improved Anticipated Discharge Date/Time: 03/13/22 10:32 Discharge Medications: New docusate sodium 100 mg Capsule 100 mg PO DAILY Qty: 0 0RF hydrocodone-acetaminophen 5-325 mg Tablet 1 tab PO Q6H PRNQty: 20 0RF ibuprofen 600 mg Tablet 600 mg PO Q6H PRN (Reason: Pain) Qty: 0 0RF Lanolin (HPA) 100 % Cream 1 applic topical Q1H PRNQty: 0 0RF Poly-Iron 150 Forte 150-25-1 mg-mcg-mg Capsule 1 cap PO DAILY 60 Days Qty: 60 0RF nifedipine [Procardia XL] 30 mg tablet extended release 24hr 30 mg PO DAILY Qty: 60 0RF Continued prenat.vits,blanca,alj-ycxu-[id number] Tablet 1 tab PO QDAY citalopram 20 mg tablet 20 mg PO DAILY omeprazole 20 mg capsule,delayed release(DR/EC) 20 mg PO QDAY Discontinued aspirin 81 mg tablet,chewable 81 mg PO DAILY Discharge Orders: Discharge Order (Routine); Ordered 03/13/22 Ordered By: Hallie Acosta Patient Education: (DC) Activity Restrictions/Additional Instructions: Discharge instructions were reviewed with the patient including signs and symptoms of infection and home going medications. Lifting Restrictions: 20 pounds for [address] while taking narcotic pain medication. Off Work or School for 8 weeks. Symptoms to report to doctor: -Bleeding that saturates more than one pad per hour ?-Passing clots larger than the size of a golf ball ?-Pain not relieved by prescribed medication ?-Fever above 100.4 degrees Fahrenheit ?-A foul vaginal odor ?-Difficulty in emotions, mood and functions ?-Thoughts of hurting yourself and/or ?-Painful, reddened area in your breast ?-Any drainage, redness or tenderness in your IV/epidural site ?-Severe headache that doesn't improve after taking medications ?-Changes in vision, including temporary loss of vision, blurred vision, and/or light sensitivity ?-Upper abdominal pain (usually under ribs on the right side) ?-Decrease in urination or painful, frequent urinating ?-Chest pain ?-Shortness of breath ?-Tenderness or pain with redness and/swelling in the calf(s) of your leg Blood Pressure check in 1 week. Incision check w/ Dr. Shanae Camacho in 2 weeks. Exam/physical in 6 weeks w/ any [facility] provider. consultation services are available to all mothers and babies for the first year after delivery.? To make an appointment, please call [phone]. Activity Level: Activity as Tolerated and No strenuous activity Activity Detail: No lifting greater than 20 lbs for 6 weeks. Discharge Diet: Regular Follow Up Appointments: Provider,Not a Local [Primary Care Provider] - Forms: MyHealth Info Instructions
[2022-03-13] MEDS: IBUPROFEN 600 MG TABLET PO (08:13)
[2022-03-13] MEDS: DOCUSATE SODIUM 100 MG CAPSULE PO (08:14)
[2022-03-13 09:10] VITALS: TEMP 37.1
[2022-03-13 10:08] VITALS: BP 137/95; PULSE 80; RESP 16; TEMP 36.8; O2SAT 97
[2022-03-13 10:38] VITALS: TEMP 37.1
== END 2022-03-13 11:00 | disposition home or self-care (01) | DRG 540 ==
PROVIDERS: Admitting Provider Obstetrics & Gynecology; Visit Provider Obstetrics & Gynecology
PROC: 10D00Z1 Extraction of Products of Conception, Low, Open Approach (ICD-10-PCS; CPT 59514; principal; 2022-03-11 08:30)
DX: O34.211 Maternal care for low transverse scar from previous cesarean delivery (principal); O13.4 Gestational [pregnancy-induced] hypertension without significant proteinuria, complicating childbirth; Z30.2 Encounter for sterilization; O90.81 Anemia of the puerperium; D62 Acute posthemorrhagic anemia; Z37.0 Single live birth; Z3A.37 37 weeks gestation of pregnancy
CPT/HCPCS: 01961; 36415; 85018; 85025; 86850; 86900; 86901; 87635; 88302; 88307; A9270; C9290; J1580; J1885; J2274; J2370; J2405; J2590; J3490; J7120; S0077

== ENCOUNTER 2022-10-18 14:22 | Outpatient (CLI) | payer BC, OTHER, SELFPAY | END 2022-10-18 14:23 | disposition home or self-care (01) | LOC: FRMREF 14:27 | PROVIDERS: Visit Provider Registered Nurse | DX: R63.5 Abnormal weight gain (principal); R45.86 Emotional lability | CPT/HCPCS: 84443 ==

== ENCOUNTER 2023-07-09 14:05 | Outpatient (CLI) | payer BC, OTHER, SELFPAY | END 2023-07-09 14:06 | disposition home or self-care (01) | LOC: NFLDREF 14:06 | PROVIDERS: Visit Provider Obstetrics & Gynecology | DX: N92.0 Excessive and frequent menstruation with regular cycle (principal); R63.5 Abnormal weight gain | CPT/HCPCS: 84443 ==

== ENCOUNTER 2023-07-10 07:11 | Outpatient (CLI) | payer BC, OTHER, SELFPAY ==
--- NOTE | 2023-07-10 07:15 | CRLHL7_ITS ---
For Patients: As a result of the Century Cures Act, medical imaging exams and procedure reports are released immediately into your electronic medical record. You may view this report before your referring provider. If you have questions, please contact your health care provider. INDICATION: Excessive and frequent bleeding COMPARISON: 11/22/2021 TECHNIQUE: 2D nolen scale and color Doppler images were acquired of the pelvis using a transabdominal and transvaginal approach. FINDINGS: Sonographic images demonstrate a normal size and smooth outer contour of the uterus. Uterus measures 8.1 cm in length by 3.8 cm in AP diameter by 5.5 cm in transverse dimension. The myometrium has a normal uniform echotexture. The endometrial lining measures 5 mm in composite thickness. Nodular focus within the endometrium measures 5 x 4 x 5 millimeters. The right ovary measures 3.6 x 2.2 x 1.8 cm in size and the left ovary measures 3.4 x 2.3 x 2.2 cm. The ovaries demonstrate normal arterial and venous blood flow on color Doppler analysis. Incidental echogenic foci are present within the right ovary measuring 7 millimeters and 6 millimeters. There are no suspicious fluid collections within the cul-de-sac. IMPRESSION: Possible endometrial polyp measuring 5 millimeters. Dictated by Demarco Horner MD @ 07/10/2023 11:46:29 AM (Electronically Signed)
== END 2023-07-10 07:12 | disposition home or self-care (01) ==
LOC: US 07:13
PROVIDERS: PCP Family Medicine; Visit Provider Obstetrics & Gynecology
DX: N92.0 Excessive and frequent menstruation with regular cycle (principal)
CPT/HCPCS: 76830; 76856

== ENCOUNTER 2023-08-06 10:12 | Outpatient (CLI) | payer OTHER, SELFPAY ==
--- OUTSIDE RECORDS SUMMARY | 2023-08-06 10:18 | XMS_ITS | Referral Summary ---
Author Name Unknown Organization [facility] Address [address] [place] [id number] Care Team Providers Care Automation Clerk Name Role Phone Unavailable Primary Care Provider Unavailabl e Allergies Active Allergy Reactions Criticality Noted Date Comments Penicillins Swelling 08/16/2017 Medications Medication Sig Dispensed Refills Start Date End Date Status Vit-Fe Fumarate-FA ( MULTIVITAMIN PLUS IRON) 27-0.8 MG TABS per tablet Take 1 tablet by mouth daily 0 Active calcium carbonate (TUMS) 500 MG chewable tablet Take 1 chew tab by mouth daily 0 Active acetaminophen (TYLENOL) 325 MG tabletIndications:C esarean delivery delivered Take 2 tablets (650 mg) by mouth every 6 hours as needed for other (multimodal surgical pain management along with NSAIDS and opioid medication as indicated based on pain control and physical function.) 100 tablet 0 08/20/2017 Active ibuprofen (ADVIL/MOTRIN) 600 MG tabletIndications:C esarean delivery delivered Take 1 tablet (600 mg) by mouth every 6 hours as needed (carmping) 120 tablet 0 08/20/2017 Active oxyCODONE IR (ROXICODONE) 5 MG tabletIndications:C esarean delivery delivered Take 1 tablet (5 mg) by mouth every 4 hours as needed (pain control or improvement in physical function. Hold dose for analgesic side effects.) 10 tablet 0 08/20/2017 Active senna-docusate (SENOKOT-S;PERICOLA CE) 8.6-50 MG per tabletIndications:C esarean delivery delivered Take 1 tablet by mouth 2 times daily as needed for constipation 100 tablet 0 08/20/2017 Active Active Problems Problem Noted Date Diagnosed Date delivery delivered 08/17/2017 Indication for care in labor or delivery 018 Social History Tobacco Use Types Packs/Day Years Used Date Smoking Tobacco: Former Smokeless Tobacco: Never Alcohol Use Standard Drinks/Week Comments No 0 (1 standard drink = 0.6 oz pur e alcohol) Adolescent Education Answer Date Record ed Getting School Help Needed Not on file 05/05 Sex and Gender Information Value Date Recorded Sex Assigned at Female 08/03/2021 2:35 PM COOK NIGHT Gender Identity Female 08/03/2021 2:35 PM COOK NIGHT Sexual Orientation Straight 08/03/2021 2: 35 PM COOK NIGHT Last Filed Vital Signs Vital Sign Reading Time Taken Comments Blood Pressure 137/90 08/20/2017 8:34 AM COOK NIGHT Pulse - - Temperature 36.5 ??C (97.7 ??F) 08/20/2017 8:34 AM CS T Respiratory Rate 18 08/20/2017 8:34 AM COOK NIGHT Oxygen Saturation 96% 08/17/2017 8:20 AM COOK NIGHT Inhaled Oxygen Concentration - - Weight 83.5 kg (184 lb) 08/16/2017 11:00 AM COOK NIGHT Height 162.6 cm (5' 4) 08/16/2017 11:00 AM COOK NIGHT Body Mass Index 31.58 08/16/2017 11:00 AM COOK NIGHT Plan of Treatment Not on file
--- OUTSIDE RECORDS SUMMARY | 2023-08-06 10:18 | XMS_ITS | Clinical Summary ---
Author Name Unknown Organization [facility] Address [address] [place] [address] Care Team Providers Care Sales Planning Manager Name Role Phone Leela Ruano MD Primary Care Provider Source Comments You are receiving this document as you are listed as the primary care provider,follow-up provider, or the patient has been referred to you for consultation.This is in compliance with the Medicare andW[facility]oster Community Hospitalcaid EHR Incentive Program,which states Providers who transition their patient to another setting of careor provider of care or refers their patient to another provider of care shouldprovide summary care record for each transition of care or referral. divorce360[facility] [place] Allergies Active Allergy Reactions Criticality Noted Date Comments Penicillins Medium 06/02/2003 PN: Lip swelling Medications No known medications Active Problems Problem Noted Date Diagnosed Date Tension headache 11/28/2003 Overview: LW Onset: [id number] ; Headache Tension [place] Comments Yes Resolved Problems Problem Noted Date Diagnosed Date Resolved Date Other acne 06/04/2003 10/17/2004 Overview: LW Onset: [id number] ; Acne Vulgaris Immunizations Name Administration Dates Next Due DTP 12/17/1990, 7,01/20/1986, 986,1985 H1n1 Miv Sanofi 3+ Yr (Injected) 08/23/2009 HepA Adult (19+ yrs) 06/21/2000 HepB Adult (Engerix-B, 20+ y rs, 3 dose series) 02/28/2000 HepB Ped/Adol (0-18 yrs) 06/02/2003 MMR 09/20/1997,10/18/1986 OPV, Trivalent (Orimune or tOPV) 991,10/18/1986,01/20/1986, 986,1985 TDAP (ADACEL) 09/04/2007 Td 09/20/1997 Family History Relation Name Status Comments Father Alive Mother Alive Social History Tobacco Use Types Packs/Day Years Used Date Smoking Tobacco: Former Cigarettes 0.5 16 0 12/12/2000 - 12/12/2016 Comments:Smoking History Pac ks/day: Alcohol Use Standard Drinks/Week Comments Yes 0 (1 standard drink = 0.6 oz pure alcohol) Alcoholic Drinks/day: Amount:1-2 drinks; Freq:2-3/week ; Comments Yes Sex and Gender Information Value Date Recorded Sex Assigned at Not on file Gender Identity Not on file Sexual Orientation Not on file Last Filed Vital Signs Vital Sign Reading Time Taken Comments Blood Pressure 112/70 01/04/2017 2:59 PM CDT Pulse 79 01/04/2017 2:59 PM CDT Temperature 37 ??C (98.6 ??F) 01/04/2017 2:59 PM CDT Respiratory Rate 16 01/04/2017 2:59 PM CDT Oxygen Saturation 97% 01/04/2017 2:59 PM CDT Inhaled Oxygen Concentration - - Weight 64.6 kg (142 lb 6.4 oz) 12/19/2016 3:48 P M CDT Height 165.1 cm (5' 5) 09/12/2015 3:36 PM FIELD ARTILLERY CREWMEMBER Body Mass Index 23.7 09/12/2015 3:36 PM FIELD ARTILLERY CREWMEMBER Plan of Treatment Health Maintenance Due Date Last Done Comments Hep C Screening (Preventive Services) 1985 COVID-19 Vaccine (#1) 01/19/1986 HepA (2 of 2 - Risk 2-dose series) 12/19/2000 06/21/2000 HIV Screening (Preventive Services) 2001 Adult Preventive Visit 2003 HepB (3) 07/28/2003 06/02/2003, 02/28/2000 Cervical Cancer Screening 09/12/20182015, 01/06/2009, 09/04/2007, Additional history exists Influenza (#1) 2023 09/13/2021, 05/29/2017 DTaP/Tdap/Td (8 - Tdap) 05/29/2027 05/29/20 17, 09/04/2007, 09/20/1997, Additional history exists Zoster/Shingles (1 of 2) 2035 IPV (Polio) Completed 12/17/1990, 09/27, 01/20/1986, Additional history exists HPV Vaccine Aged Out No longer eligi ble based on patient's age to complete this topic Hib Aged Out No longer eligi ble based on patient's age to complete this topic MCV4 Aged Out No longer eligi ble based on patient's age to complete this topic Pneumococcal Aged Out No longer eligi ble based on patient's age to complete this topic Care Teams Sales Planning Manager Relationship Specialty [place] [id number] [address] [address] [facility] - General 10/31/10
--- OUTSIDE RECORDS SUMMARY | 2023-08-06 10:18 | XMS_ITS | Clinical Summary ---
Author Name Unknown Organization [facility] Address [address] [place] [id number] Care Team Providers Care Neonatal Intensive Care Nurse Name Role Phone Unavailable Primary Care Provider [...] Sex Assigned at Female 08/03/2021 2:35 PM ANVIL SEATING PRESS OPERATOR Gender Identity Female 08/03/2021 2:35 PM ANVIL SEATING PRESS OPERATOR Sexual Orientation Straight 08/03/2021 2: 35 PM ANVIL SEATING PRESS OPERATOR Last Filed Vital Signs Vital Sign Reading Time Taken Comments Blood Pressure 137/90 08/20/2017 8:34 AM ANVIL SEATING PRESS OPERATOR Pulse - - Temperature 36.5 ??C (97.7 ??F) 08/20/2017 8:34 AM CS T Respiratory Rate 18 08/20/2017 8:34 AM ANVIL SEATING PRESS OPERATOR Oxygen Saturation 96% 08/17/2017 8:20 AM ANVIL SEATING PRESS OPERATOR Inhaled Oxygen Concentration - - Weight 83.5 kg (184 lb) 08/16/2017 11:00 AM ANVIL SEATING PRESS OPERATOR Height 162.6 cm (5' 4) 08/16/2017 11:00 AM ANVIL SEATING PRESS OPERATOR Body Mass Index 31.58 08/16/2017 11:00 AM ANVIL SEATING PRESS OPERATOR Plan of Treatment Health Maintenance Due Date Last Done Comments ADVANCE CARE PLANNING 1985 ANNUAL REVIEW OF HM ORDERS 1985 HEPATITIS B IMMUNIZATION (2 of 3 - 3-dose series) 03/27/2000 02/28/2000 HEPATITIS C SCREENING 2003 PAP 2006 YEARLY PREVENTIVE VISIT 10/02/2019 10/01/2018 COVID-19 Vaccine (3 - 2022-2 4 season) 2023 12/27/2020, 12/06/2020 INFLUENZA VACCINE (#1) 2023 7, 08/23/2009 PHQ-2 (once per calendar year) 2023 DTAP/TDAP/TD IMMUNIZATION (2 - Td or Tdap) 05/29/2027 05/29/2017 HIV SCREENING Completed 01/25/2017 HPV IMMUNIZATION Aged Out No longer e ligible based on patient's age to complete this topic IPV IMMUNIZATION Aged Out No longer e ligible based on patient's age to complete this topic MENINGITIS IMMUNIZATION Aged Out No l onger eligible based on patient's age to complete this topic Pneumococcal Vaccine: Pediatrics (0 to 5 Years) and At-Risk Patients (6 to 64 Years) Aged Out No longer eligible b ased on patient's age to complete this topic RSV MONOCLONAL ANTIBODY Aged Out No l onger eligible based on patient's age to complete this topic
--- OUTSIDE RECORDS SUMMARY | 2023-08-06 10:18 | XMS_ITS | Clinical Summary ---
Author Name Unknown Organization [facility] Address [place], [place] [address] Care Team Providers Care Biology Internship Name Role Phone Unavailable Primary Care Provider Unavailabl e Allergies Active Allergy Reactions Criticality Noted Date Comments Penicillin V Potassium Angioedema 02/24/2020 Medications Medication Sig Dispensed Refills Start Date End Date Status levonorgestrel intrauterine device (MIRENA) 20 mcg/24 hours (5 yrs) 52 mg IUD Inject 1 Device intrauterine one time for 1 dose. 1 Device 0 02/24/2020 Active Encounters Date Type Department Care Team Description 07/10/2023 Lab Requisition [facility] [phone] Shanae Camacho MD from Last 3 Months Social History Tobacco Use Types Packs/Day Years Used Date Smoking Tobacco: Never Assessed Social Connections Answer Date Recorded Frequency of Communication with Friends and Fami ly Not on file 2021 Financial Resource Strain Answer Date R ecorded Difficulty of Paying Living Expenses Not on file 2021 Difficulty of Paying Living Expenses Not on file 2021 Sex and Gender Information Value Date Recorded Sex Assigned at Not on file Gender Identity Not on file Sexual Orientation Not on file Plan of Treatment Health Maintenance Due Date Last Done Comments COVID-19 vaccine series (#1) 01/19/1986 Tdap 1996 Depression screening for age 12+ 1997 HIV for age 15-65 2000 BMI (ht and wt on same day) for age 18+ 2003 Hepatitis C screening for ag e 18-79 2003 Tetanus booster 2005 Pap test for age 21-65 2006 Influenza for age 9-49 03/29/2023 Pneumococcal series for age 6-64 Aged Out No longer eligible based on patient's age to complete this topic Procedures Procedure Name Priority Date/Time Associated Diagnosis Comments LAB TRACKING EVENT Routine 07/09/2023 2: 15 PM PROPERTY ADJUSTER PATH TISSUE EXAM Routine 07/09/2023 2:15 PM PROPERTY ADJUSTER from Last 3 Months Results * LAB TRACKING EVENT (07/09/2023 2:15 PM PROPERTY ADJUSTER) Other (Other) Client Collect / Unknown 07/09/2023 2:15 PM PROPERTY ADJUSTER 07/10/2023 5:47 PM PROPERTY ADJUSTER Shanae Camacho MD LAB BILL ONLY [facility] [address] [place] [address], * PATH TISSUE EXAM (07/09/2023 2:15 PM PROPERTY ADJUSTER) Case Report Pathology Report ?Case: [id number] ? Authorizing Provider: ??Shanae Camacho MD ?? Collected: ? 07/09/2023 1415 ? Ordering Location: ? [facility] ?Received: ?07/10/2023 1827 ? Pathologist: ? Katey Guzmán MD ? Specimen: ?Endometrial ? 07/12/2023 8:45 AM PROPERTY ADJUSTER [facility] Final Diagnosis A) ENDOMETRIUM, BIOPSY: 1. Secretory endometrium 2. Negative for chronic endometritis 3. Negative for hyperplasia, atypia, and malignancy 07/12/2023 8:45 AM PROPERTY ADJUSTER [facility] Clinical Information Menorrhagia 07/12/2023 8:45 AM PROPERTY ADJUSTER [facility] Gross Description A) Received in formalin, labeled with the patient's name and date of , is a 2.0 x 1.0 x 0.2 cm aggregate of pink-lloyd mucosa admixed with clotted blood and mucous. The specimen is entirely submitted in 1 cassette. TLF 07/10/2023 07/12/2023 8:45 AM [facility] Microscopic Description The final diagnosis is based on microscopic examination of appropriate sections of all specimens. 07/12/2023 8:45 AM [facility] Additional Information Interpreted at [facility] - [address] [place] [address] 07/12/2023 8:45 AM [facility] Other SPECIMEN FROM ENDOMETRIUM / Unknown 07/09/2023 2:15 PM PROPERTY ADJUSTER 07/10/2023 6:27 PM PROPERTY ADJUSTER Shanae Camacho MD PATHOLOG[facility]/CYTOLOG [facility] [address] [place] [address], from Last 3 Months
== END 2023-08-06 10:13 | disposition home or self-care (01) ==
PROVIDERS: PCP Family Medicine; Visit Provider Family Medicine
DX: Z01.818 Encounter for other preprocedural examination (principal); R63.5 Abnormal weight gain
CPT/HCPCS: 80053; 86376; 87086

== ENCOUNTER 2023-10-14 10:52 | Outpatient (CLI) | payer OTHER, SELFPAY | END 2023-10-14 10:53 | disposition home or self-care (01) | LOC: NFLDREF 10-16 11:20 | PROVIDERS: PCP Family Medicine; Visit Provider Family Medicine | DX: Z01.818 Encounter for other preprocedural examination (principal); N92.0 Excessive and frequent menstruation with regular cycle | CPT/HCPCS: 87086 ==

== ENCOUNTER 2023-10-17 07:20 | Day surgery (SDC) | payer OTHER, SELFPAY ==
[2023-10-17] VITALS (7 sets, daily range): BP systolic 97–139; BP diastolic 34–104; PULSE 55–86; RESP 16–18; TEMP 36.4–36.6; O2SAT 96–100; BMI 30.4
[2023-10-17 07:49] LABS: Ur HCG Qualitative* Negative (Negative)
[2023-10-17] MEDS: LACTATED RINGERS 1000 ML 1,000 ML 100 ML IV ×2 (08:14→10:40)
[2023-10-17] MEDS: SODIUM CHLORIDE 0.9 % (FLUSH) 10 ML SYRINGE IVF (08:14)
--- NOTE | 2023-10-17 08:56 | W.PM.H&PU ---
History & Physical Update History & Physical Update H&P Reviewed and patient assessed: No changes noted
[2023-10-17] MEDS: LIDOCAINE 1% MDV 20 ML INJECTION (09:35)
[2023-10-17] MEDS: SILVER NITRATE APPLICATOR 1 EACH STICK..EA. TOPICAL (09:52)
--- NOTE | 2023-10-17 10:06 | W.ANESCHARGE ---
Anesthesia Charges Start Date/Time Anesthesia Start Date: 10/17/23 Anesthesia Start Time: 09:07 Stop Date/Time Anesthesia Stop Date: 10/17/23 Anesthesia Stop Time: 10:05
--- NOTE | 2023-10-17 10:10 | W.ANESCHARGE ---
Anesthesia Charges Start Date/Time Anesthesia Start Date: 10/17/23 Anesthesia Start Time: 09:07 Stop Date/Time Anesthesia Stop Date: 10/17/23 Anesthesia Stop Time: 10:05
--- NOTE | 2023-10-17 10:35 | P.GYNPRC_ITS ---
Procedure Note Date of procedure: 10/17/23 Pre-op diagnosis: Menorrhagia with suspected endometrial polyps on recent ultrasound Post-op diagnosis: other (Menorrhagia, with no definitive endometrial polyps on hysteroscopy) Procedure: Hysteroscopy Visual dilation and curettage Elaine endometrial ablation Anesthesia: MAC and local (Paracervical block with 10 mL of 1% lidocaine) Complications: None Surgeon: Shanae Camacho MD Estimated blood loss (mL): 5 IV fluids (mL): 900 Urine Output (mL): 75 Pathology: specimen obtained, sent to pathology (Endometrial curettings, verbally confirmed at time of debrief) Condition: stable Disposition: same day Findings: 1. Upon pelvic exam under anesthesia, the cervix and vagina were normal in appearance. Uterus was mobile and anteverted, of normal size and texture. There were no palpable adnexal masses. 2. Upon hysteroscopy, the endometrium was diffusely thickened. The cavity shape was narrow but otherwise normal in appearance. Sounded depth was 8 cm, cervical length 2.5 cm, with cavity length 5.5 cm. Procedure Description: Procedure in detail: Patient was taken to the operating room with IV running. She was positioned in dorsal lithotomy position with her legs fully supported in Yellofin stirrups. Monitored anesthesia care was administered. She was prepped and draped in the usual sterile fashion. Exam under anesthesia was performed for the above-noted findings. Speculum was inserted. Cervix visualized and grasped along the anterior lip with a single-tooth tenaculum. Cervix was serially dilated to accommodate the TRUCLEAR hysteroscope. This was assembled with saline inflow and outflow in place. The line was flushed of bubbles. The hysteroscope was advanced through the cervix into the endometrial cavity for the above noted findings. The tissue morcellator was then inserted through the operating channel. Window lock was pe rformed. Under direct visualization, the endometrial cavity was circumferentially curetted with the tissue morcellator. The hysteroscope and morcellator were then removed from the uterus. Uterine and cervical measurements were then performed with uterine sound, with findings as noted above. Cervix was serially dilated to accommodate the Elaine handheld device. The device was then powered on. The hand-held device was inserted through the cervix and the array was deployed. Appropriate uterine width was noted. The intracervical balloon was then inflated. The pedal was pushed to activate to the cavity integrity test, both of which were passed. The ablation cycle then ensued. Thereafter, the intracervical balloon was deflated, and the device was retracted from the uterus. Tenaculum was removed from the anterior lip of cervix. Hemostasis was achieved with silver nitrate. Patient tolerated procedure well. She was taken to recovery area in stable condition.
[2023-10-17] MEDS: hydrOXYzine pamoate 25 MG CAPSULE PO (10:38)
[2023-10-17] MEDS: fentaNYL 100 MCG/2 ML inj 50 MCG IVP ×2 (10:53→11:07)
[2023-10-17] MEDS: ACETAMINOPHEN 500 MG TABLET 1000 MG PO (11:00)
== END 2023-10-17 12:50 | disposition home or self-care (01) ==
PROVIDERS: PCP Family Medicine; Visit Provider Obstetrics & Gynecology
PROC: 0UF98ZZ Fragmentation in Uterus, Via Natural or Artificial Opening Endoscopic (ICD-10-PCS; CPT 58563; principal; 2023-10-17 08:45)
DX: N92.0 Excessive and frequent menstruation with regular cycle (principal)
CPT/HCPCS: 58563; 00952; 36415; 81025; 86850; 86900; 86901; 88305; A9270; J1100; J1885; J2250; J2405; J2704; J3010; J3490; J7120

== ENCOUNTER 2024-03-11 14:23 | Outpatient (CLI) | payer OTHER, SELFPAY ==
--- OUTSIDE RECORDS SUMMARY | 2024-03-12 08:56 | XMS_ITS | Clinical Summary ---
[facility] Address [address] [place] [address] Care Team Providers Care Oil Well Logger Name Role Phone Leela Ruano MD Primary Care Provider Source Comments You are receiving this document as you are listed as the primary care provider,follow-up provider, or the patient has been referred to you for consultation.This is in compliance with the Medicare and[facility] EHR Incentive Program,which states Providers who transition their patient to another setting of careor provider of care or refers their patient to another provider of care shouldprovide summary care record for each transition of care or referral. [employer] Allergies Active Allergy Reactions Criticality Noted Date Comments Penicillins Medium 06/02/2003 PN: Lip swelling Medications No known medications Active Problems Problem Noted Date Diagnosed Date Tension headache 11/28/2003 Overview (03/20/2017): LW Onset: [id number] ; Headache Tension [place] Comments Yes Resolved Problems Problem Noted Date Diagnosed Date Resolved Date Other acne 06/04/2003 10/17/2004 Overview (03/20/2017): LW Onset: [id number] ; Acne Vulgaris Immunizations Name Administration Dates [...] 165.1 cm (5' 5) 09/12/2015 3:36 PM CLARIFIER OPERATOR HELPER Body Mass Index 23.7 09/12/2015 3:36 PM CLARIFIER OPERATOR HELPER Plan of Treatment Health Maintenance Due Date Last Done Comments Hep C Screening (Preventive Services) 1985 HepA (2 of 2 - Risk 2-dose series) 12/19/2000 06/21/2000 HIV Screening (Preventive Services) 2001 Adult Preventive Visit 2003 HepB (3) 07/28/2003 06/02/2003, 02/28/2000 Cervical Cancer Screening 09/12/20182015, 01/06/2009, 09/04/2007, Additional history exists COVID-19 Vaccine ( season) 2023 12/27/2020, 12/06/2020 Influenza (#1) 2024 09/13/2021, 05/29/2017 DTaP/Tdap/Td (8 - Tdap) 05/29/2027 [...] Procedure Name Priority Date/Time Associated Diagnosis Comments ANATOMICAL PATH LIQUID BASED Routine 09/12/2015 4:11 PM CLARIFIER OPERATOR HELPER from Last 3 Months or Most Recently Relevant to Health Maintenance Results * Pap Smear (09/12/2015 4:11 PM CLARIFIER OPERATOR HELPER) 09/12/2015 4:11 PM CLARIFIER OPERATOR HELPER Narrative HP CONVERSION - 09/15/2015 4:41 PM CLARIFIER OPERATOR HELPER FINAL GYNECOLOGICAL CYTOLOGY REPORT Pathology #: [id number] ?Date Obtained: 09/12/2015 ? Date Received: 09/13/2015 INTERPRETATION/RESULTS: Atypical squamous cells of undetermined significance (ASCUS). If requested and applicable, HPV testing will be performed and reported separately, per ACOG guidelines. SPECIMEN ADEQUACY: Satisfactory for Evaluation. ??Endocervical cells/transformation zone component present. Verified on 09/15/2015 ??by NAOMY LANGSTON MD (electronic signature) CLINICAL NOTES: ?Abnormal bleeding: No, LMP: 09/07/15, Menstrual status: None ?Apply, Current form of therapy: None apply LIQUID BASED PAP SMEAR SPECIMEN TYPE: ?ROUTINE CERVICAL PAP TEST PLEASE NOTE: The pap smear is a screening test designed to aid in the detection of cervical cancer and its precursor lesions. It is not a diagnostic procedure and should not be used as the sole means of detecting cervical cancer. Both false-positive and false-negative reports may occur. Performed at [facility], [address] [place] [id number] Transcriptions 09/05/2016 9:41 PM CSTNotes Recorded by Shannon Tan RN on 09/16/2015 at 2:59 PMLetter sent. Leela Ruano MD LAB_1 HP CONVERSION from Last 3 Months or Most Recently Relevant to Health Maintenance Care Teams Oil Well Logger Relationship Specialty [place] [address] [place] [address] [facility] - General 10/31/10
--- OUTSIDE RECORDS SUMMARY | 2024-03-12 08:56 | XMS_ITS | Clinical Summary ---
Author Organization [facility] Address [address] [place] [id number] Care Team Providers Care Reception Manager Name Role Phone Unavailable Primary Care Provider Unavailabl e Allergies Active Allergy Reactions Criticality Noted Date Comments Penicillins Swelling 08/16/2017 Medications Medication Sig Dispensed Refills Start Date End Date Status Vit-Fe Fumarate-FA ( MULTIVITAMIN PLUS IRON) 27-0.8 MG TABS per tablet Take 1 tablet by mouth daily Active calcium carbonate (TUMS) 500 MG chewable tablet Take 1 chew tab by mouth daily Active acetaminophen (TYLENOL) 325 MG tabletIndications:C esarean delivery delivered Take 2 tablets (650 mg) by mouth every 6 hours as needed for other (multimodal surgical pain management along with NSAIDS and opioid medication as indicated based on pain control and physical function.) 100 tablet 08/20/2017 Active ibuprofen (ADVIL/MOTRIN) 600 MG tabletIndications:C esarean delivery delivered Take 1 tablet (600 mg) by mouth every 6 hours as needed (carmping) 120 tablet 08/20/2017 Active oxyCODONE IR (ROXICODONE) 5 MG tabletIndications:C esarean delivery delivered Take 1 tablet (5 mg) by mouth every 4 hours as needed (pain control or improvement in physical function. Hold dose for analgesic side effects.) 10 tablet 08/20/2017 Active senna-docusate (SENOKOT-S;PERICOLA CE) 8.6-50 MG per tabletIndications:C esarean delivery delivered Take 1 tablet by mouth 2 times daily as needed for constipation 100 tablet 08/20/2017 Active Active Problems Problem Noted Date [...] Getting School Help Needed Not on file 01/21 Sex and Gender Information Value Date Recorded Sex Assigned at Female 08/03/2021 2:35 PM LANDING GEAR MECHANIC Gender Identity Female 08/03/2021 2:35 PM LANDING GEAR MECHANIC Sexual Orientation Straight 08/03/2021 2: 35 PM LANDING GEAR MECHANIC Last Filed Vital Signs Vital Sign Reading Time Taken Comments Blood Pressure 137/90 08/20/2017 8:34 AM LANDING GEAR MECHANIC Pulse - - Temperature 36.5 ??C (97.7 ??F) 08/20/2017 8:34 AM CS T Respiratory Rate 18 08/20/2017 8:34 AM LANDING GEAR MECHANIC Oxygen Saturation 96% 08/17/2017 8:20 AM LANDING GEAR MECHANIC Inhaled Oxygen Concentration - - Weight 83.5 kg (184 lb) 08/16/2017 11:00 AM LANDING GEAR MECHANIC Height 162.6 cm (5' 4) 08/16/2017 11:00 AM LANDING GEAR MECHANIC Body Mass Index 31.58 08/16/2017 11:00 AM LANDING GEAR MECHANIC Plan of Treatment Health Maintenance Due Date Last Done Comments ADVANCE CARE PLANNING 1985 ANNUAL REVIEW OF HM ORDERS 1985 HEPATITIS B IMMUNIZATION (2 of 3 - 3-dose series) 03/27/2000 02/28/2000 HEPATITIS C SCREENING 2003 PAP 2006 YEARLY PREVENTIVE VISIT 10/02/2019 10/01/2018 GLUCOSE 08/17/2020 08/17/2017, 07/29, 08/16/2017, Additional history exists COVID-19 Vaccine ( season) 2023 12/27/2020, 12/06/2020 PHQ-2 (once per calendar year) 2023 INFLUENZA VACCINE (#1) 2024 05/29/2017, 2009 DTAP/TDAP/TD IMMUNIZATION (2 - Td or Tdap) [...] 64 Years) Aged Out No longer eligible based on patient's age to complete this topic RSV MONOCLONAL ANTIBODY Aged Out No l onger eligible based on patient's age to complete this topic Procedures Procedure Name Priority Date/Time Associated Diagnosis Comments GLUCOSE BY METER Routine 08/17/2017 6:35 AM LANDING GEAR MECHANIC HIV ANTIGEN ANTIBODY COMBO Routine 01/25/2017 from Last 3 Months or Most Recently Relevant to Health Maintenance Results * (ABNORMAL) Glucose by meter (08/17/2017 6:35 AM LANDING GEAR MECHANIC) Glucose 114(H) 70 - 99 mg/dL 08/17/2017 6:40 AM LANDING GEAR MECHANIC POINT OF CARE TEST, GLUCOSE 08/17/2017 6:35 AM LANDING GEAR MECHANIC 08/17/2017 6:40 AM LANDING GEAR MECHANIC Keila Aguilar MD LAB - BEAKE R POCT POINT OF CARE TEST, GLUCOSE * HIV Antigen Antibody Combo (01/25/2017) HIV Antigen Antibody Combo Non Reactive Blood specimen (specimen) Patient Reported LAB - BLOOD ORDERABL ES from Last 3 Months or Most Recently Relevant to Health Maintenance
--- OUTSIDE RECORDS SUMMARY | 2024-03-12 08:56 | XMS_ITS | Clinical Summary ---
Author Organization [facility] Address [place], [place] [address] Care Team Providers Care Waste Removalist Name Role Phone Unavailable Primary Care Provider Unavailabl e Allergies Active Allergy Reactions Criticality Noted Date Comments Penicillin V Potassium Angioedema 02/24/2020 Medications Medication Sig Dispensed Refills Start Date End Date Status levonorgestrel intrauterine device (MIRENA) 20 mcg/24 hours (5 yrs) 52 mg IUD Inject 1 Device intrauterine one time for 1 dose. 1 Device 02/24/2020 Active Social History Tobacco Use Types Packs/Day Years [...] Health Maintenance Due Date Last Done Comments Tdap 1996 Depression screening for age 12+ 1997 HIV for age 15-65 2000 BMI (ht and wt on same day) for age 18+ 2003 Hepatitis C screening for ag e 18-79 2003 Tetanus booster 2005 Pap test for age 21-65 2006 COVID-19 vaccine series ( season) 2023 Influenza for age 9-49 03/29/2024 Pneumococcal series for age 6-64 Aged Out No longer eligible based on patient's age to complete this topic
--- OUTSIDE RECORDS SUMMARY | 2024-03-12 08:56 | XMS_ITS | Referral Summary ---
Author Organization [facility] Address [address] [place] [address] Care Team Providers Care Surgical Training Specialist Name Role Phone Unavailable Primary Care Provider [...] Sex Assigned at Female 08/03/2021 2:35 PM FINANCIAL SERVICES REP Gender Identity Female 08/03/2021 2:35 PM FINANCIAL SERVICES REP Sexual Orientation Straight 08/03/2021 2: 35 PM FINANCIAL SERVICES REP Last Filed Vital Signs Vital Sign Reading Time Taken Comments Blood Pressure 137/90 08/20/2017 8:34 AM FINANCIAL SERVICES REP Pulse - - Temperature 36.5 ??C (97.7 ??F) 08/20/2017 8:34 AM CS T Respiratory Rate 18 08/20/2017 8:34 AM FINANCIAL SERVICES REP Oxygen Saturation 96% 08/17/2017 8:20 AM FINANCIAL SERVICES REP Inhaled Oxygen Concentration - - Weight 83.5 kg (184 lb) 08/16/2017 11:00 AM FINANCIAL SERVICES REP Height 162.6 cm (5' 4) 08/16/2017 11:00 AM FINANCIAL SERVICES REP Body Mass Index 31.58 08/16/2017 11:00 AM FINANCIAL SERVICES REP Plan of Treatment Not on file Procedures Procedure Name Priority Date/Time Associated Diagnosis Comments GLUCOSE BY METER Routine 08/17/2017 6:35 AM FINANCIAL SERVICES REP HIV ANTIGEN ANTIBODY COMBO Routine 01/25/2017 from Last 3 Months or Most Recently Relevant to Health Maintenance Results * (ABNORMAL) Glucose by meter (08/17/2017 6:35 AM FINANCIAL SERVICES REP) Glucose 114(H) 70 - 99 mg/dL 08/17/2017 6:40 AM FINANCIAL SERVICES REP POINT OF CARE TEST, GLUCOSE 08/17/2017 6:35 AM FINANCIAL SERVICES REP 08/17/2017 6:40 AM FINANCIAL SERVICES REP Keila Aguilar MD LAB - BEAKE R POCT POINT OF CARE TEST, GLUCOSE * HIV Antigen Antibody Combo (01/25/2017) HIV Antigen Antibody Combo Non Reactive Blood specimen (specimen) Patient Reported LAB - BLOOD ORDERABL ES from Last 3 Months or Most Recently Relevant to Health Maintenance
== END 2024-03-11 14:24 | disposition home or self-care (01) ==
LOC: NFLDREF 03-12 08:51
PROVIDERS: PCP Family Medicine; Referring Provider Family Medicine; Visit Provider Physician Assistant
DX: R30.0 Dysuria (principal); R10.9 Unspecified abdominal pain; N39.0 Urinary tract infection, site not specified
CPT/HCPCS: 87086

== ENCOUNTER 2024-12-07 07:39 | Outpatient (CLI) | payer OTHER, SELFPAY | END 2024-12-07 07:40 | disposition home or self-care (01) | LOC: NFLDREF 12-12 19:33 | PROVIDERS: PCP Family Medicine; Referring Provider Family Medicine; Visit Provider Family Medicine | DX: R63.5 Abnormal weight gain (principal) | CPT/HCPCS: 84443; 86376 ==

== ENCOUNTER 2025-07-05 11:47 | Outpatient (CLI) | payer OTHER, SELFPAY ==
--- NOTE | 2025-07-20 13:55 | W.PM.SLEEP ---
Sleep Study Details Details Interpreting Provider: Sandrine Date of Sleep Study: 07/05/25 Sleep Study Details: STUDY TYPE:? Home unattended ? BMI:? 27.12 ORDERING PROVIDER:? Sandrine INDICATION:? Concern for sleep apnea ? SLEEP SUMMARY:? 477 minutes monitored RESPIRATORY SUMMARY:? AHI 11.9 per rule 1A, 6.7 per CMS guideline Low oxygen 83 1% of study oxygen less than 90% Snoring 100% PERIODIC LIMB MOVEMENTS OF SLEEP:? Not recorded CARDIAC:? Range 65-111, mean 84.4 beats per minute IMPRESSION:? Mild obstructive sleep apnea RECOMMENDATION: Treatment options include CPAP, dental appliance and/or airway expansion surgery.
== END 2025-07-05 11:48 | disposition home or self-care (01) ==
LOC: SLEEP 11:47
PROVIDERS: PCP Family Medicine; Visit Provider Otolaryngology
DX: G47.33 Obstructive sleep apnea (adult) (pediatric) (principal)
CPT/HCPCS: 95806